=== PATIENT | male | born 1950 | race Caucasian/White ===

== ENCOUNTER 2022-01-09 15:05 | Inpatient (IN) | payer MEDICARE ==
[~2022-01-09] VITALS: Ht 193 cm; Wt 116.1 kg
[~2022-01-09 15:05] MED LIST: ALPRAZolam 0.25 MG (XANAX) TAB PO PRN; AMIO100T4 PO; APIX5TAB PO; ASPI-1238 PO; BISACODYL 10 MG SUPP (DULCOLAX) PR PRN; CALCIUM CARBONATE 500 MG (TUMS) TAB.CHEW PO PRN; CYCL10TA25 PO; DOCUSATE SODIUM 100 MG (COLACE) CAP PO PRN; EMPA10TA PO; EPLE25TA4 PO; FLEET ENEMA ADULT 1 EA BTL PR PRN; FLUT15.845 NSEACH; FURO40TA4 PO; LACTULOSE SYRUP 10GM/15ML (ENULOSE) 30ML UDC PO PRN; LEVO25CA4 PO; LOPERAMIDE 2 MG (IMODIUM) TABLET PO PRN; MELATONIN 3 MG TABLET PO PRN; MTP25TSR PO; SACU1TAB7 PO; SIMV10TA26 PO; TMSL.4C PO; TRM50T PO; ZOLP10TA PO; diphenhydrAMINE 25 MG TAB (BENADRYL) PO PRN; guaiFENesin/CODEINE (ROBITUSSIN AC) 10ML UDC PO PRN
--- NOTE | 2022-01-09 15:09 | PM&R Post Admission Assessment ---
PM&R HP Date of Visit: January 09, 2022 Time of Visit: 17:30 History of Present Illness CC: CHF induced myopathy HPI: This is a 71 yr old male with a history of hypertension, hyperlipidemia, diabetes,and Covid-19 infection in September of 2021. Pt had prostate cancer status post prostatectomy. He presented to [facility] from [facility] in [place] for advanced heart failure therapy and management. He has a history of a total knee replacement in October of this year. He had worsening SOB and lower extremity edema. Lives in [place] and was visiting a son in [place] when he was admitted in [facility] on 12/03/21 with ejection fraction 10% and pleural effusion. He was diuresed and placed on Dobutamine infusion. Which improved, resulted in 10 lb weight loss. He then developed atrial fibrillation. Started anticoagulation and due to the poor cardiac function was transferred to [facility] for ischemic workup. He had V tach sustained type status post cardioversion and initiation of Amiodarone. Pt remains on Amiodarone. He is on Lisinopril and Spironolactone, but those gave acute kidney injury. He will be monitored closely and will have aggressive therapy in order to return home. Past Cosbbcg-Oisbut-Tefwra Hx Past Med/Social Hx: Reviewed Nursing Past Med/Soc Hx, Reviewed and Corrections made Patient Social History Marrital Status: Employed/Student: retired ([employer] 50 years) Alcohol Use: Occasionally Uses Smoking Status: Former Smoker Past Medical History Surgeries: Orthopedic, Prostatectomy Cardiac: Atrial Fibrillation, High Cholesterol, Hypertension Genitourinary: Benign Prostatic Hyperpl Musculoskeletal: Arthritis, Chronic Back Pain Endocrine: Hypothyroidsim, Diabetes, Non-Insulin dep PM&R Allergy/Meds/Data Review Allergies Coded Allergies: No Allergy Information Available (Unverified , 01/09/22) Home Medications Scheduled Amiodarone HCl (Amiodarone HCl), 100 MG PO DAILY, (Reported) Apixaban (Eliquis), 5 MG PO BID, (Reported) Aspirin (Aspirin EC), 81 MG PO DAILY, (Reported) Empagliflozin (Jardiance), 10 MG PO DAILY, (Reported) Eplerenone (Eplerenone), 25 MG PO DAILY, (Reported) Fluticasone Propionate (Fluticasone Propionate), 1 SPRAY NSEACH DAILY, (Reported) Furosemide (Furosemide), 40 MG PO DAILY, (Reported) Levothyroxine Sodium (Levothyroxine), 25 MCG PO DAILY, (Reported) Metoprolol Succinate (Metoprolol Succinate), 12.5 MG PO DAILY, (Reported) Sacubitril/Valsartan (Entresto 49 mg-51 mg Tablet), 1 TAB PO BID, (Reported) Simvastatin (Simvastatin), 10 MG PO DAILY, (Reported) Tamsulosin HCl (Flomax), 0.4 MG PO DAILY, (Reported) Scheduled PRN Cyclobenzaprine HCl (Cyclobenzaprine HCl), 10 MG PO TID PRN for MUSCLE SPASMS, (Reported) Tramadol HCl (Tramadol HCl), 100 MG PO Q6H PRN for PAIN-MODERATE (5-7), (Reported) Zolpidem Tartrate (Ambien), 5 MG PO HS PRN for SLEEP, (Reported) Current Medications Current Medications Reviewed Review of Systems Constitutional: see HPI, dizziness, malaise, weakness EENTM: no symptoms reported Respiratory: dyspnea on exertion Cardiovascular: no symptoms reported Gastrointestinal: no symptoms reported Genitourinary: decreased output Musculoskeletal: back pain, joint pain Skin: no symptoms reported Psychiatric/Neurological: No Symptoms Reported All Other Systems Reviewed Negative Unless Noted: Yes Physical Exam Physical Exam Vital Signs Capillary Refill : Height, Weight, BMI Height: '" Weight: lbs. oz. kg; BMI Method: General Appearance: No Apparent Distress, WD/WN, Chronically ill, Obese Eyes: Bilateral Eye Normal Inspection, Bilateral Eye PERRL HEENT: PERRL/EOMI, Normal ENT Inspection, Pharynx Normal Neck: Full Range of Motion, Normal Inspection, Non Tender, Supple, Carotid Bruit Respiratory: Chest Non Tender, Lungs Clear, No Accessory Muscle Use, No Respiratory Distress, Decreased Breath Sounds Cardiovascular: No Edema, No Gallop, No JVD, No Murmur, Normal Peripheral Pulses, Irregularly Irregular Gastrointestinal: Normal Bowel Sounds, No Organomegaly, No Pulsatile Mass, Non Tender, Soft Back: Normal Inspection, No CVA Tenderness, No Vertebral Tenderness Extremity: Normal Capillary Refill, Normal Inspection, Normal Range of Motion, Non Tender, No Calf Tenderness, No Pedal Edema Neurologic/Psychiatric: Alert, Oriented x3, No Motor/Sensory Deficits, Normal Mood/Affect Skin: Normal Color, Warm/Dry Lymphatic: No Adenopathy PM&R Medical Assessment & Plan REHAB/MEDICAL ASSESSMENT AND PLAN: REHAB IMPAIRMENT GROUP: CHF ETIOLOGIC DIAGNOSIS: CHF The comorbidities that impact the patients function and/or functional outcome by: Shortness of breath, CHF, stamina REHAB PLAN: The patient is being admitted to our comprehensive inpatient rehabilitation facility and can tolerate the intensity of service consisting of at least: 180 minutes of therapy a day, 5 out of 7 days a week Rehab treatment will consist of: PT and OT will focus on regaining function with use of assistive devices in order to return back to independent living with spouse The patient/family has a good understanding of our discharge process and will benefit from an interdisciplinary inpatient rehabilitation program. The patient has potential to make improvement and is in need of at least two of the following multidisciplinary therapies including but not limited to physical, occupational, speech, and prosthetics and orthotics. Additionally the patient will need services from respiratory, nutritional services, wound care, psychology, etc. (Customize this to each patient). Given the patients complex condition and risk of further medical complications, rehabilitation services cannot be safely or effectively provided at a lower level of care such as a retirement facility. BARRIERS TO DISCHARGE: Debility ESTIMATED LOS: 7 days DISPOSITION: Home with spouse RELEVANT CHANGES SINCE PREADMISSION SCREENING: I have compared the patients medical and functional status at the time of the preadmission screening and there are: No changes PROGNOSIS: Fair REHABILITATION GOALS: 1. PT and OT will focus on regaining function with use of assistive devices in order to return back to independent living with spouse All the above goals were reviewed with the patient and he/she is in agreement. By signing this document, I acknowledge that I have personally performed a full physical examination on this patient within 24 hours of admission to this inpatient rehabilitation facility and have determined the patient to be able to tolerate the above course of treatment at an intensive level for a reasonable period of time. I will be completing a detailed individualized Plan of Care for this patient by day #4 of the patients stay based upon the Preadmission Screen, the Post-Admission Evaluation, and the therapy evaluations. Admission Dx/Comorbidities: (1) Chronic HFrEF (heart failure with reduced ejection fraction) ICD Codes: I50.22 - Chronic systolic (congestive) heart failure (2) Nonischemic cardiomyopathy ICD Codes: I42.8 - Other cardiomyopathies (3) Persistent atrial fibrillation ICD Codes: I48.19 - Other persistent atrial fibrillation (4) Primary hypertension ICD Codes: I10 - Essential (primary) hypertension (5) Mixed hyperlipidemia ICD Codes: E78.2 - Mixed hyperlipidemia (6) Pulmonary hypertension ICD Codes: I27.20 - Pulmonary hypertension, unspecified (7) Type 2 diabetes mellitus with complication ICD Codes: E11.8 - Type 2 diabetes mellitus with unspecified complications Assessment/Plan Assessment and Plan Assess & Plan/Chief Complaint Assessment: Cardiac debility Nonischemic cardiomyopathy Persistent atrial fibrillation Previous COVID infection Hypoxia BPH Hypothyroidism Diabetes Prostate cancer history Elevated liver enzymes Insomnia Obesity History of acute kidney injury Hyponatremia Plan: Rehab protocol Dr. Kramer consult Supportive care GUERRERO COLE DO January 09, 2022 15:09
[2022-01-09] MEDS ORDERED: RX-CYCLOBENZAPRINE 10 MG (FLEXERIL) TAB PPK#3 PO PRN (15:15)
[2022-01-09] MEDS ORDERED: NON-FORMULARY MEDICATION 1 EA EA (Zolpidem Tartrate (Ambien) 5 MG) PO PRN (15:15)
[2022-01-09 15:25] VITALS: BP 98/63
--- NOTE | 2022-01-09 15:28 | Physical Therapy Evaluation ---
PT Evaluation-General Medical Diagnosis Admission Date Medical Diagnosis: acute decompensated heart failure Onset Date: January 08, 2022 Therapy Diagnosis Therapy Diagnosis: impaired mobility, strength, endurance Precautions Pace maker precautions Referral Physician: Samanta Blank DO Reason for Referral: Evaluation/Treatment Medical History Pertinent Medical History: Atrial Fib, HTN Current History Pt. is not allowed to lift more than 10lb. or raise left shoulder past 90* for 6 weeks Reviewed History: Yes Social History Home: Single Level Current Living Status: Spouse Entry Into Home: Stairs With Railing PT Steps Into Home: 2 Prior Prior Level of Function SCALE: Activities may be completed with or without assistive devices. 9-Rdwidluabu-zptqmza completes the activity by him/herself with no assistance from a helper. 5-Set-up or Clean-up Assistance-helper sets up or cleans up; patient completes activity. [place] assists only prior to or following the activity. 4-Supervision or Touching Assistance-helper provides verbal cues and/or touching/steadying and/or contact guard assistance as patient completes activity. Assistance may be provided throughout the activity or intermittently. 3-Partial/Moderate Assistance-helper does LESS THAN HALF the effort. [place] lifts, holds or supports trunk or limbs, but provides less than half the effort. 2-Substantial/Maximal Assistance-helper does MORE THAN HALF the effort. [place] lifts or holds trunk or limbs and provides more than half the effort. 8-Ljqhotzhd-ovgsze does ALL the effort. Patient does none of the effort to complete the activity. Or, the assistance of 2 or more helpers is required for the patient to complete the activity. If activity was not attempted, code reason: 7-Patient Refused. 9-Not Applicable-not attempted and the patient did not perform the activity before the current illness, exacerbation or injury. 10-Not Attempted due to Environmental Limitations-(lack of equipment, weather restraints, etc.). 88-Not Attempted due to Medical Conditions or Safety Concerns. Bed Mobility: 6 Transfers (B,C,W/C): 6 Gait: 6 Stairs: 6 Indoor Mobility (Ambulation): Independent Stairs: Independent Prior Devices Use: None PT Evaluation-Current Subjective Patient was brought into rehab today by family. Patient was wheeled up to the floor in . Patient did not report pain at this time and was agreeable to PT. Pain Numeric Pain Scale: 0-No Pain Pt/Family Goals To be independent at home Objective Patient Orientation: Person, Place, Time, Situation ROM/Strength ROM Lower Extremities Grossly WFL Strength Lower Extremities R LE: (hip flexion4-/5, knee extension 4/5, knee flexion 4-/5, DF 4/5); L LE (hip flexion4-/5, knee extension 4/5, knee flexion 4-/5, DF 4/5) Integumentary/Posture Bowel Incontinence: No Bladder Incontinence: [place] Cath Sensory Vision: Functional Hearing: Functional Sensation Right Lower Extremit: Intact Sensation Left Lower Extremity: Intact Transfers Roll Left & Right (QC): 3 Sit to Lying (QC): 4 Lying to Sitting/Side of Bed(Q: 3 Sit to Stand (QC): 2 Chair/Uas-ww-Atfek Xfer(QC): 2 Toilet Transfer (QC): 2 Car Transfer (QC): 2 Gait Does the Patient Walk?: Yes Mode of Locomotion: Walk Anticipated Mode of Locomotion: Walk Walk 10 feet (QC): 3 Walk 50 ft with 2 Turns(QC): 88 Walk 150 ft (QC): 88 Walking 10ft/uneven surface-QC: 88 Distance: 15' Gait Assistive Device: Cane Large Base Quad Comments/Gait Description Arm sling on L. Cane on R. small very unsteady steps. needs rest after a few feet of walking. Wheelchair Training Does the Pt Use a Wheelchair?: Yes Wheel 50 ft with 2 turns (QC): 1 Wheel 150 ft (QC): 1 Stairs 1 Step (curb) (QC): 88 4 Steps (QC): 88 12 Steps (QC): 88 Balance Sitting Static: Good Sitting Dynamic: Fair Standing Static: Poor Standing Dynamic: Poor Picking up an Object (QC): 88 Assessment/Needs Patient was very weak with transfers needing max assist for sit-stand, and min assist for walking short distances. Patient was min assist for bed mobility. Patients was ambulated with large base quad cane due to arm sling which makes ambulating more difficult and unsteady. Pt was left in recliner in chair with call light, tray, and all needs met. Rehab Potential: Poor PT Short Term Goals Short Term Goals Time Frame: January 16, 2022 Roll Left & Right: 4 Sit to lyin (CGA) Lying to sitting on side of be: 4 (CGA) Sit to stand: 3 Chair/ntk-fp-jsioj transfer: 3 Toilet transfer: 3 Car transfer: 3 Walk 10 feet: 4 (CGA) Walk 50 feet with two turns: 3 Walk 150 feet: 3 Walking 10ft on uneven surface: 3 1 step (curb): 4 PT Nickel Operator Goals Nickel Operator Goals PT Assisted Goals Time Frame: January 30, 2022 Roll Left & Right (QC): 6 Sit to Lying (QC): 4 (SBA) Lying-Sitting on Side/Bed(QC): 4 (SBA) Sit to Stand (QC): 4 (CGA) Chair/Rrg-ue-Coyya Xfer(QC): 4 (CGA) Toilet Transfer (QC): 4 (CGA) Car Transfer (QC): 4 (CGA) Does the Patient Walk: Yes Walk 10 feet (QC): 4 (SBA) Walk 50ft with 2 Turns (QC): 4 (CGA) Walk 150 ft (QC): 4 (CGA) Walking 10ft on Uneven Surface: 4 (CGA) 1 Step (curb) (QC): 4 (CGA) 4 Steps (QC): 88 12 Steps (QC): 88 Picking up an Object (QC): 4 (CGA with sewer builder) Does the Pt use WC or Scooter?: No Wheel 50 feet with 2 turns (QC: 9 Type: N/A Wheel 150 feet: 9 Type: N/A PT Plan Problem List Problem List: Activity Tolerance, Functional Strength, Safety, Balance, Gait, Transfer, Bed Mobility, ROM Treatment/Plan Treatment Plan: Continue Plan of Care Treatment Plan: Bed Mobility, Education, Functional Activity Saul, Functional Strength, Group Therapy, Gait, Safety, Therapeutic Exercise, Transfers Treatment Duration: January 30, 2022 Frequency: At least 5 of 7 days/Wk (IRF) Estimated Hrs Per Day: 1.5 hours per day Patient and/or Family Agrees t: Yes Safety Risks/Education Patient Education: Gait Training, Transfer Techniques, Reviewed Precautions, Correct Positioning, Safety Issues Teaching Recipient: Patient Teaching Methods: Demonstration, Discussion Response to Teaching: Verbalize Understanding, Reinforcement Needed Discharge Recommendations Plan Patient will perform bed mobility and transfer training, balance and endurance training, functional strengthening, stair training, gait training, and education, to improve functional mobility and independence at home. Therapy Discharge Recommendati: Scheduled Assistance, Home & Family, Post Acute PT Time/GCodes Time In: 1500 Time Out: 1520 Total Billed Treatment Time: 20 Total Billed Treatment 1 visit EVM 20min SOLO MULLER PT January 09, 2022 15:28
--- OUTSIDE RECORDS SUMMARY | 2022-01-09 16:29 | XMS REPORT | Clinical Summary ---
Author Author [facility] Organization [facility] Address Unknown Phone Unavailable Care Team Providers Care Fitness [employer] Manager Name Role Phone PCP Unavailable Allergies No known active allergies Medications End Date Status Medication Sig Dispensed Refills Start Date Active simvastatin (ZOCOR) 10 MG Take 10 mg by 0 tabletIndications: mouth. hyperlipidemia Active tramadoL (ULTRAM) 50 mg Take 100 mg 0 tabletIndications: pain by mouth every 6 (six) hours as needed. Active cyclobenzaprine Take 1 tablet 0 (FLEXERIL) 10 MG (10 mg total) 2 tabletIndications: muscle by mouth 3 spasm (three) times a day as needed for muscle spasms. Active furosemide (LASIX) 40 MG Take 1 tablet 0 01/08 tabletIndications: edema (40 mg total) 2 by mouth daily. Active zolpidem (AMBIEN) 10 mg Take 0.5 0 tablet tablets (5 mg 2 total) by mouth nightly as needed for sleep. Active amiodarone (PACERONE) 100 Take 1 tablet 0 05/0 MG tabletIndications: (100 mg 2 prevention of recurrent total) by atrial fibrillation mouth daily. Active aspirin 81 MG EC Take 1 tablet 0 tabletIndications: (81 mg total) 2 myocardial infarction by mouth prevention daily. Active eplerenone (INSPRA) 25 MG Take 1 tablet 0 05/0 tabletIndications: (25 mg total) 2 chronic heart failure by mouth following myocardial daily. infarction Active empagliflozin (JARDIANCE) Take 1 tablet 30 tablet 11 10 mg tabletIndications: (10 mg total) 2 heart failure with by mouth reduced ejection fraction daily. Active fluticasone propionate Use 1 spray 0 02 (FLONASE) 50 in each 2 mcg/actuation nasal nostril sprayIndications: daily. allergic rhinitis Active levothyroxine (SYNTHROID, Take 1 tablet 0 LEVOTHROID) 25 MCG (25 mcg 2 tabletIndications: total) by hypothyroidism mouth daily. Active metoprolol succinate Take 0.5 0 (TOPROL-XL) 25 MG 24 hr tablets (12.5 2 tabletIndications: mg total) by chronic heart failure mouth daily. Active sacubitriL-valsartan Take 1 tablet 0 (ENTRESTO) 49-51 mg per by mouth 2 2 tabletIndications: (two) times a chronic heart failure day. Active tamsulosin (FLOMAX) 0.4 Take 1 0 mg capIndications: benign capsule (0.4 2 prostatic hyperplasia mg total) by with lower urinary tract mouth daily. sx Active apixaban (ELIQUIS) 5 mg Take 1 tablet 60 tablet 2 tabletIndications: (5 mg total) 2 prevent thromboembolism by mouth 2 in chronic atrial (two) times a fibrillation day. 01/08/2022 Discontinued (Reorder) cyclobenzaprine Take 1 tablet 0 (FLEXERIL) 10 MG tablet by mouth. 2 01/08/2022 Discontinued (Reorder) furosemide (LASIX) 80 MG Take 1 tablet 0 09/18 tablet by mouth. 2 01/09/2022 Discontinued (Stop Taking at Discharge) hydrocodone-chlorpheniram Take 5 mL by 0 08/06 ine 10-8 mg/5 mL mouth nightly 1 (TUSSIONEX PENNKINETIC) as needed. ER suspension 01/09/2022 Discontinued (Stop Taking at Discharge) lisinopriL Take 10 mg by 0 (PRINIVIL,ZESTRIL) 10 MG mouth daily. tablet 01/09/2022 Discontinued (Stop Taking at Discharge) meloxicam (MOBIC) 15 MG Take 1 tablet 0 tablet by mouth. 1 01/09/2022 Discontinued (Stop Taking at Discharge) methocarbamoL (ROBAXIN) Take 1 tablet 0 500 MG tablet by mouth. 1 01/09/2022 Discontinued (Stop Taking at Discharge) NIFEdipine (PROCARDIA-XL, 1 tablet on 0 01/05 ADALAT CC) 30 MG 24 hr an empty 1 tablet stomach 01/09/2022 Discontinued (Stop Taking at Discharge) losartan-hydrochlorothiaz Take 1 tablet 0 maximilian (HYZAAR) 50-12.5 mg by mouth. 1 per tablet 01/09/2022 Discontinued (Stop Taking at Discharge) predniSONE (DELTASONE) 50 Take 50 mg by 0 08/06 MG tablet mouth. 1 01/09/2022 Discontinued (Stop Taking at Discharge) terazosin (HYTRIN) 2 MG 1 capsule at 0 capsuleIndications: bedtime 1 benign prostatic hyperplasia with lower urinary tract sx 01/08/2022 Discontinued (Reorder) zolpidem (AMBIEN) 10 mg 1 tablet at 0 tablet bedtime as 2 needed 01/09/2022 Discontinued (Stop Taking at Discharge) zolpidem (AMBIEN CR) 12.5 1 tablet at 0 10/07 MG CR tablet bedtime as 2 needed 01/08/2022 Discontinued (Reorder) empagliflozin (JARDIANCE) Take 1 tablet 30 tablet 11 10 mg tablet (10 mg total) 2 by mouth daily. 01/08/2022 Discontinued (Stop Taking at Discharge) sacubitriL-valsartan Take 1 tablet 60 tablet 11 (ENTRESTO) 24-26 mg per by mouth 2 2 tablet (two) times a day. Active Problems Problem Noted Date Hyponatremia 01/01/2022 Cardiogenic shock 12/31/2021 Benign essential hypertension 12/31/2021 Mixed hyperlipidemia 12/31/2021 Primary insomnia 12/31/2021 Prostate cancer 12/31/2021 COVID-19 virus infection 12/31/2021 Obesity 12/31/2021 Type 2 diabetes mellitus 12/31/2021 Acute on chronic systolic heart failure 12/31/2021 Acute kidney injury 12/31/2021 Atrial fibrillation 12/31/2021 Resolved Problems Problem Noted Date Resolved Date Elevated liver enzymes 12/31/2021 01/06/2022 Encounters Care Team Description Date Type Specialty Tanya Giles RN ICD (implantable cardioverter-defibrilla tor), dual, in situ 01/09/2022 Orders Only Cardiology Tanya Giles RN ICD (implantable cardioverter-defibrilla tor), dual, in situ (Primary Dx) 01/09/2022 Orders Only Cardiology Kristel Echeverria MA Cardiac device in situ (Primary Dx) 01/09/2022 Transcribe Cardiology Orders Anali Fleiz MD ICD INSERTION DUAL-MDT 01/08/2022 Surgery Cardiology Ponce Fonseca MD Encounter for consultation 01/05/2022 Imaging Radiology Appointment Ponce Fonseca MD Encounter for consultation 01/05/2022 Imaging Radiology Appointment Edenilson Faith MD Encounter for consultation (Primary Dx) 01/05/2022 Transcribe Transplant Orders Mikel Goff MD RIGHT HEART CATHETERIZATION 01/01/2022 Surgery Cardiology [place] RN 01/01/2022 Documentation Transplant Ponce Fonseca MD Nassif, Michael, MD Chronic systolic heart failure (HCC) (Pr imary Dx); Hypothyroidism (acquired); Heart failure with reduced ejection fraction (HCC); NICM (nonischemic cardiomyopathy) (HCC); COVID-19 virus infection; Persistent atrial fibrillation (HCC); Acute kidney injury (HCC); Benign essential hypertension; Mixed hyperlipidemia 12/31/2021 Hospital Cardiology - Encounter 01/09/2022 from Last 3 Months Social History Date Tobacco Use Types Packs/Day Years Used Never Smoker Smokeless Tobacco: Never Used Comments Alcohol Use Standard Drinks/Week Not Currently 0 (1 standard drink = 0.6 o z pure alcohol) Sex Assigned at Date Recorded Not on file Last Filed Vital Signs Reading Time Taken Comments Vital Sign 106/66 01/09/2022 10:56 AM CDT Blood Pressure 85 01/09/2022 10:56 AM CDT Pulse 36.6 C (97.8 F) 01/09/2022 10:56 AM CDT Temperature 18 01/09/2022 10:56 AM CDT Respiratory Rate 96% 01/09/2022 10:56 AM CDT Oxygen Saturation - - Inhaled Oxygen Concentration 108.7 kg (239 lb 9.6 oz) 01/09/2022 5:36 AM CDT Weight 185.4 cm (6' 1") 12/31/2021 7:35 PM CDT Height 31.61 12/31/2021 7:35 PM CDT Body Mass Index Plan of Treatment Care Team Description Date Type Specialty 01/15/2022 Nurse Only Cardiology Anali Feliz MD [address] [place] [address] 02/09/2022 Telephone Cardiology Vanessa Phillip FNP [address] [place] [address] 04/16/2022 Office Visit Cardiology 04/16/2022 Nurse Only Cardiology Health Maintenance Due Date Last Done Comments Advance Care Plan 1950 Conversation Needed # Advance Care Plan 1950 Document Filed # Advance Care Planning # 1950 Colonoscopy 1950 Colorectal Cancer 1950 Screening Diabetes Mellitus 1950 Ophthalmology Exam Diabetes Mellitus Urine 1950 Microalbumin FIT-DNA 1950 Fecal Occult Blood 1950 Hepatitis C Screen 1950 Sigmoidoscopy 1950 Td/Tdap# 1950 Pneumococcal Vaccine: 65+ 1955 Years (1 - PCV) Diabetes Mellitus Foot 1959 Exam Zoster Vaccine# (1 of 2) 2000 COVID-19 Vaccine (3 - 04/08/2021 11/06/2020, Booster for Moderna 10/09/2020 series) Social Determinants of 09/06/2021 Health# Influenza Vaccine (Season 06/06/2022 Ended) Diabetes Mellitus 07/03/2022 01/01/2022, Hemoglobin A1C 12/31/2021 Lipid Screening 01/01/2023 01/01/2022, 01/01/2022, 12/31/2021 Fall Risk Assessment # 01/09/2023 01/09/2022 Medical Devices Device Identifier Shelf Expiration Date Model / Serial / L ot Implanted Type Area Manufactur er 05/20/2023 [id number] / [id number] / [id number] Implant Defibrillator Evera Mri ICD Left: Chest MEDTRON[employer] Xt [id number] - [id number] CARDIAC Implanted: Qty: 1 on 01/08/2022 by RHYTHM Chuck Kelley MD at [facility] 06/30/2023 4076-52 / [id number] / [id number] Implant Lead Pacemaker Lead Right: Heart MEDTRON IC Atrial/Ventricle 52cm Capsure Fix Atrium CAR DIAC Jasmeet 4076-52 - [id number] RHYTHM Implanted: Qty: 1 on 01/08/2022 by [facility] Chuck Kelley MD at [facility] Procedures Comments Procedure Name Priority Date/Time Associated Diag nosis INPATIENT SINGLE CHAMBER Routine 01/09/2022 ICD ( implantable PACEMAKER CHECK 9:37 AM CDT cardioverter-defibr illato r), dual, in situ XR CHEST 2 VIEWS (PA AND Timed 01/09/2022 LATERAL) 8:58 AM CDT GLUCOSE POC Timed 01/09/2022 8:33 AM CDT COMPLETE BLOOD COUNT Routine 01/09/2022 6:14 AM CDT COMPREHENSIVE METABOLIC Routine 01/09/2022 PANEL 6:14 AM CDT ECG Routine 01/09/2022 5:25 AM CDT GLUCOSE POC Timed 01/08/2022 9:00 PM CDT PLATELET Timed 01/08/2022 4:36 PM CDT GLUCOSE POC Timed 01/08/2022 4:29 PM CDT ELECTROPHYSIOLOGY Routine 01/08/2022 PROCEDURE 3:06 PM CDT ELECTROPHYSIOLOGY Routine 01/08/2022 PROCEDURE 3:06 PM CDT GLUCOSE POC Timed 01/08/2022 11:15 AM CDT COMPLETE BLOOD COUNT Routine 01/08/2022 10:43 AM CDT COMPREHENSIVE METABOLIC Routine 01/08/2022 PANEL 10:43 AM CDT GLUCOSE POC Timed 01/08/2022 7:25 AM CDT ECG Routine 01/08/2022 5:27 AM CDT Procedure Note - 01/08/2022 5:27 AM CDTThis note is in progress. [facility] Test Date: 2022-01-08 Pat Name: AVEL FAYE Department : [facility] Room: 18 Gender: Male Perinatal Coordinator : [id number] : 1950 Requested By: ANALI FELIZ Order Number: [id number] Reading MD: Harvinder ts Intervals Benjamin Rate: 82 P: 215 IA: 72 QRS: -68 QRSD: 148 T: 95 QT: 440 QTc: 514 Interpreti ve Statements Sinus or ectopic atrial rhythm Ventricula r premature complex Short IA interval Nonspecifi c IVCD with LAD Inferior infarct, old Anterior infarct, old GLUCOSE POC Timed 01/07/2022 9:12 PM CDT GLUCOSE POC Timed 01/07/2022 5:45 PM CDT SPIROMETRY ONLY, DLCO Routine 01/07/2022 1:21 PM CDT GLUCOSE POC Timed 01/07/2022 11:43 AM CDT GLUCOSE POC Timed 01/07/2022 7:38 AM CDT COMPLETE BLOOD COUNT Routine 01/07/2022 7:19 AM CDT COMPREHENSIVE METABOLIC Routine 01/07/2022 PANEL 7:19 AM CDT HEPARIN ANTI FACTOR XA, Timed 01/07/2022 UNFRACTIONATED HEPARIN 7:19 AM CDT GLUCOSE POC Timed 01/06/2022 9:08 PM CDT GLUCOSE POC Timed 01/06/2022 5:31 PM CDT HEPARIN ANTI FACTOR XA, Timed 01/06/2022 UNFRACTIONATED HEPARIN 10:20 AM CDT COMPLETE BLOOD COUNT Routine 01/06/2022 10:20 AM CDT COMPREHENSIVE METABOLIC Routine 01/06/2022 PANEL 10:20 AM CDT GLUCOSE POC Timed 01/06/2022 8:03 AM CDT GLUCOSE POC Timed 01/05/2022 9:08 PM CDT GLUCOSE POC Timed 01/05/2022 6:27 PM CDT SARS-COV-2 (COVID-19) Routine 01/05/2022 5:31 PM CDT GLUCOSE POC Timed 01/05/2022 12:07 PM CDT CATH OUTSIDE IMAGES FOR Routine 01/05/[address] for PACS 10:38 AM CDT consultation ECHO OUTSIDE IMAGES FOR Routine 01/05/[address] for PACS 10:38 AM CDT consultation GLUCOSE POC Timed 01/05/2022 7:44 AM CDT HEPARIN ANTI FACTOR XA, STAT 01/05/2022 UNFRACTIONATED HEPARIN 2:01 AM CDT COMPLETE BLOOD COUNT Routine 01/05/2022 2:01 AM CDT COMPREHENSIVE METABOLIC Routine 01/05/2022 PANEL 2:01 AM CDT GLUCOSE POC Timed 01/04/2022 9:02 PM CDT HEPARIN ANTI FACTOR XA, Timed 01/04/2022 UNFRACTIONATED HEPARIN 7:14 PM CDT GLUCOSE POC Timed 01/04/2022 4:47 PM CDT GLUCOSE POC Timed 01/04/2022 12:10 PM CDT PLATELET Timed 01/04/2022 11:41 AM CDT HEPARIN ANTI FACTOR XA, Timed 01/04/2022 UNFRACTIONATED HEPARIN 11:41 AM CDT GLUCOSE POC Timed 01/04/2022 7:52 AM CDT HEPARIN ANTI FACTOR XA, Timed 01/04/2022 UNFRACTIONATED HEPARIN 6:00 AM CDT COMPLETE BLOOD COUNT Routine 01/04/2022 6:00 AM CDT COMPREHENSIVE METABOLIC Routine 01/04/2022 PANEL 6:00 AM CDT GLUCOSE POC Timed 01/03/2022 9:16 PM CDT HEPARIN ANTI FACTOR XA, Timed 01/03/2022 UNFRACTIONATED HEPARIN 8:22 PM CDT GLUCOSE POC Timed 01/03/2022 7:33 PM CDT GLUCOSE POC Timed 01/03/2022 12:04 PM CDT HEPARIN ANTI FACTOR XA, Timed 01/03/2022 UNFRACTIONATED HEPARIN 12:01 PM CDT US CAROTID DUPLEX BILAT Routine 01/03/2022 8:53 AM CDT CV MRI CARDIAC W WO Routine 01/03/2022 CONTRAST 8:19 AM CDT COMPLETE BLOOD COUNT Routine 01/03/2022 3:22 AM CDT COMPREHENSIVE METABOLIC Routine 01/03/2022 PANEL 3:22 AM CDT HEPARIN ANTI FACTOR XA, Timed 01/03/2022 UNFRACTIONATED HEPARIN 3:22 AM CDT PROTEIN URINE QUANT 24HR Routine 01/02/2022 11:58 PM CDT CREATININE CLEARANCE Routine 01/02/2022 GROUP 11:58 PM CDT GLUCOSE POC Timed 01/02/2022 8:21 PM CDT PLATELET Timed 01/02/2022 5:34 PM CDT GLUCOSE POC Timed 01/02/2022 5:[address] ABDOMEN WO CONTRAST Routine 01/02/2022 3:[address] CHEST WO CONTRAST Routine 01/02/2022 3:22 PM CDT GLUCOSE POC Timed 01/02/2022 1:00 PM CDT GLUCOSE POC Timed 01/02/2022 7:40 AM CDT HEPARIN ANTI FACTOR XA, Timed 01/02/2022 UNFRACTIONATED HEPARIN 6:27 AM CDT COMPLETE BLOOD COUNT Routine 01/02/2022 6:27 AM CDT COMPREHENSIVE METABOLIC Routine 01/02/2022 PANEL 6:27 AM CDT OXYHEMOGLOBIN VENOUS Timed 01/02/2022 4:03 AM CDT HEPARIN ANTI FACTOR XA, Timed 01/01/2022 UNFRACTIONATED HEPARIN 11:42 PM CDT PLATELET Timed 01/01/2022 11:42 PM CDT EXTRA URINE SPECIMEN IN Routine 01/01/2022 YELLOW W/OUT PRESERVATIVE 10:57 PM CDT URINALYSIS (INCLUDES Routine 01/01/2022 MICROSCOPIC REVIEW, IF 10:57 PM CDT INDICATED) EXTRA URINE SPECIMEN IN Routine 01/01/2022 MCKAY TUBE 10:57 PM CDT OXYHEMOGLOBIN VENOUS Routine 01/01/2022 10:16 PM CDT GLUCOSE POC Timed 01/01/2022 8:44 PM CDT FECAL OCCULT BLOOD Routine 01/01/2022 INPATIENT 7:24 PM CDT GLUCOSE POC Timed 01/01/2022 5:01 PM CDT OXYHEMOGLOBIN VENOUS Timed 01/01/2022 4:16 PM CDT US ABDOMEN COMPLETE Routine 01/01/2022 3:01 PM CDT HEPARIN ANTI FACTOR XA, Timed 01/01/2022 UNFRACTIONATED HEPARIN 2:53 PM CDT APTT Timed 01/01/2022 2:53 PM CDT ANTIBODY SCREEN Timed 01/01/2022 2:50 PM CDT ABORH TYPE Timed 01/01/2022 2:50 PM CDT TYPE AND SCREEN Routine 01/01/2022 2:50 PM CDT CLOTTING SCREEN Routine 01/01/2022 2:50 PM CDT HAPTOGLOBIN Routine 01/01/2022 2:50 PM CDT OXYHEMOGLOBIN VENOUS STAT 01/01/2022 12:39 PM CDT XR CHEST POST LINE DRAIN Routine 01/01/2022 OR AIRWAY PLACEMENT 12:26 PM CDT GLUCOSE POC Timed 01/01/2022 12:11 PM CDT CARDIAC CATHETERIZATION Routine 01/01/2022 12:04 PM CDT GLUCOSE POC Timed 01/01/2022 10:33 AM CDT ECG STAT 01/01/2022 10:08 AM CDT ECHO COMPLETE W DOPPLER Routine 01/01/2022 AND COLOR FLOW W CONTRAST 10:05 AM CDT GLUCOSE POC Timed 01/01/2022 7:27 AM CDT FIBRINOGEN ASSAY Add-On 01/01/2022 2:51 AM CDT HEPARIN ANTI FACTOR XA, Timed 01/01/2022 UNFRACTIONATED HEPARIN 2:51 AM CDT RETYPE PATIENT ABORH Routine 01/01/2022 12:25 AM CDT HEMOGLOBIN A1C Add-On 01/01/2022 12:25 AM CDT IRON/TRANSFERRIN Routine 01/01/2022 12:25 AM CDT FERRITIN Routine 01/01/2022 12:25 AM CDT COMPLETE BLOOD COUNT Routine 01/01/2022 12:25 AM CDT COMPREHENSIVE METABOLIC Routine 01/01/2022 PANEL 12:25 AM CDT HEPARIN ANTI FACTOR XA, Timed 01/01/2022 UNFRACTIONATED HEPARIN 12:25 AM CDT DIGOXIN Routine 01/01/2022 12:25 AM CDT LIPID PANEL Routine 01/01/2022 12:25 AM CDT BENZODIAZEPINES After 12/31/2021 CONFIRMATION, U office 11:30 PM CDT visit TOXICOLOGY SCREENING Add-On 12/31/2021 PANEL 11:30 PM CDT COVID PCR - RAPID STAT 12/31/2021 11:30 PM CDT EXTRA URINE SPECIMEN IN Routine 12/31/2021 YELLOW W/OUT PRESERVATIVE 11:30 PM CDT URINALYSIS (INCLUDES Routine 12/31/2021 MICROSCOPIC REVIEW, IF 11:30 PM CDT INDICATED) EXTRA URINE SPECIMEN IN Routine 12/31/2021 CMKAY TUBE 11:30 PM CDT GLUCOSE POC Timed 12/31/2021 9:33 PM CDT LIPID PANEL Add-On 12/31/2021 8:44 PM CDT URIC ACID Add-On 12/31/2021 8:44 PM CDT IRON/TRANSFERRIN Add-On 12/31/2021 8:44 PM CDT PREALBUMIN Add-On 12/31/2021 8:44 PM CDT T4 FREE Add-On 12/31/2021 8:44 PM CDT MAGNESIUM Add-On 12/31/2021 8:44 PM CDT RAPID PLASMA REAGIN Add-On 12/31/2021 8:44 PM CDT PSA SCREEN Add-On 12/31/2021 8:44 PM CDT CREATININE Add-On 12/31/2021 8:44 PM CDT ACUTE HEPATITIS PANEL Add-On 12/31/2021 8:44 PM CDT HIV AG/JOEY Add-On 12/31/2021 8:44 PM CDT LACTATE DEHYDROGENASE Add-On 12/31/2021 8:44 PM CDT HEPARIN ANTI FACTOR XA, STAT 12/31/2021 UNFRACTIONATED HEPARIN 8:44 PM CDT LACTATE VENOUS WB STAT 12/31/2021 8:44 PM CDT PROTHROMBIN TIME/INR Routine 12/31/2021 8:44 PM CDT T4 FREE Routine 12/31/2021 8:44 PM CDT THYROID STIMULATING Routine 12/31/2021 HORMONE 8:44 PM CDT COMPLETE BLOOD COUNT Routine 12/31/2021 8:44 PM CDT HEMOGLOBIN A1C Routine 12/31/2021 8:44 PM CDT COMPREHENSIVE METABOLIC Routine 12/31/2021 PANEL 8:44 PM CDT B TYPE NATRIURETIC Routine 12/31/2021 PEPTIDE (BNP) 8:44 PM CDT MAGNESIUM Routine 12/31/2021 8:44 PM CDT XR CHEST SINGLE VIEW DEEPIKA 12/31/2021 FRONTAL 7:39 PM CDT from Last 3 Months Results * INPATIENT DUAL CHAMBER ICD CHECK (01/09/2022 9:37 AM CDT) Modality Anatomical Region Laterality Other Impressions 01/09/2022 9:37 AM CDT Device Interrogation Report DATE/TIME: 01/09/22 0900 Indication for interrogation: Next Day Check Post ICD Implant Device Brace Maker/Model: Medtronic Evera ICD Battery Voltage: 3.08V Atrial Pacing <0.1% Ventricular Pacing 0.2% RA 456ohms, 2.0mV, 1.5V/0.4ms RV 608ohms, 6.5mV, 0.75V/0.4ms Underlying Rhythm: SR, rate 80's, frequent PVC's Episodes: No episodes recorded. Based upon this interrogation, the device appears to be functioning normally and the leads appear stable. Noted elevated RA threshold that is similar compared to threshold recorded in procedure post-op note and RA lead sensing is stable. Also reviewed RA lead measurement with Medtronic rep. Results communicated to Je Calabrese NP. Patient instructed regarding incision care, arm restrictions, and device follow up. Patient given, and encouraged to read the "Understanding Implantable Devices" instruction folder. The EP Nurses' phone number was marked for patient to contact if further concerns or questions. Tanya Giles, 01/09/2022 9:41 AM Electrophysiology Nurse Anali Feliz MD [facility] CARDIAC SERVICES ORDERAB LES * XR Chest 2 views (PA and lateral) (01/09/2022 8:58 AM CDT) Modality Anatomical Region Laterality Computed Radiography Chest Anatomical Location / Laterality Collection Method / Volume Smitha ection Time Received Time Specimen (Source) 01/09/2022 8:50 AM CDT Impressions 01/09/2022 10:05 AM CDT Slightly improved right worse than left bibasilar subsegmental atelectases. Stable bilateral pleural effusions. No pneumothorax. Support apparatus as described. READING SITE: Home, due to Covid 19 Narrative 01/09/2022 10:05 AM CDT Patient: AVEL FAYE Sex#: M #: [id number] Sera#: [id number] Location: [address] H618-01 Ordering Provider: CHUCK KELLEY Procedure Requested: [id number] XR CHEST 2 VIEWS (PA AND LATERAL) Reason for Exam: Lead placement Exam Ordered: 01/09/2022 0700 Begin exam date/time: 01/09/2022 0850 Exam Date/Time: 01/09/2022 0858 COMPARISON STUDY: 01/01/2022. FINDINGS: Life Support Devices: Interval placement of left pectoral transvenous dual-chamber AICD with leads terminating in the right atrium and right ventricle. Interval removal of PA catheter. Lungs: Slightly improved right worse than left bibasilar subsegmental atelectases. Pleura: Stable small bilateral pleural effusions. Heart and Mediastinum: Stable heart and mediastinum. Bones and soft tissues: Stable regional skeleton. Procedure Note Ghassan Burkett MD - 01/09/2022 Patient: AVEL FAYE Sex#: M #: [id number] Sera#: [id number] Location: [address] H618-01 Ordering Provider: CHUCK KELLEY Procedure Requested: [id number] XR CHEST 2 VIEWS (PA AND LATERAL) Reason for Exam: Lead placement Exam Ordered: 01/09/2022 0700 Begin exam date/time: 01/09/2022 0850 Exam Date/Time: 01/09/2022 0858 COMPARISON STUDY: 01/01/2022. FINDINGS: Life Support Devices: Interval placement of left pectoral transvenous dual-chamber AICD with leads terminating in the right atrium and right ventricle. Interval removal of PA catheter. Lungs: Slightly improved right worse than left bibasilar subsegmental atelectases. Pleura: Stable small bilateral pleural effusions. Heart and Mediastinum: Stable heart and mediastinum. Bones and soft tissues: Stable regional skeleton. IMPRESSION Slightly improved right worse than left bibasilar subsegmental atelectases. Stable bilateral pleural effusions. No pneumothorax. Support apparatus as described. READING SITE: Home, due to Covid 19 Chuck Kelley MD [facility]ONG * (ABNORMAL) GLUCOSE POC (01/09/2022 8:33 AM CDT) Only the most recent of 33 results within the time period is included. Pathologist Signature Component Value Ref Test Method Analysis Performed A t Range Time Glucose POC 151 (H) 70 - 100 01/09/2022 [facility] mg/dL 8:33 AM CDT Anatomical Location / Laterality Collection Method / Volume Smitha ection Time Received Time Specimen (Source) 01/09/2022 8:33 AM CDT 01/10/20 8:35 AM CDT Blood (Venous) Ponce Fonseca MD LAB BLOOD ORDERABLES City/State/ZIP Code Phone Number Performing [place] [address] [place] [address] * (ABNORMAL) Comprehensive Metabolic Panel (01/09/2022 6:14 AM CDT) Only the most recent of 10 results within the time period is included. Pathologist Signature Component Value Ref Test Method Analysis Performed A t Range Time Sodium 133 (L) 136 - 01/09/2022 [facility] 145 7:36 AM mEq/L CDT Potassium 3.5 3.4 - 01/09/2022 [facility] 5.1 7:36 AM mEq/L CDT Chloride 99 98 - 109 01/09/2022 [facility] mEq/L 7:36 AM CDT Comment: Reference interval updated 11/06/2021. Carbon Dioxide 24 20 - 31 01/09/2022 [facility] mEq/L 7:36 AM CDT Anion Gap 10 5 - 17 01/09/2022 [facility] mmol/L 7:36 AM CDT Calcium 9.0 8.3 - 01/09/2022 [facility] 10.6 7:36 AM mg/dL CDT Glucose 125 (H) 70 - 100 01/09/2022 [facility] mg/dL 7:36 AM CDT Protein Total Serum 5.9 5.7 - 01/09/2022 [facility] 8.2 g/dL 7:36 AM CDT Albumin 3.5 3.5 - 01/09/2022 [facility] 5.0 g/dL 7:36 AM CDT Alkaline Phosphatase 120 44 - 150 01/09/2022 [facility] U/L 7:36 AM CDT Comment: Reference interval updated 11/21/2021. Alanine 21 0 - 49 01/09/2022 [facility] Aminotransferase U/L 7:36 AM CDT Aspartate 16 0 - 34 01/09/2022 [facility] Aminotransferase U/L 7:36 AM CDT Comment: Reference range updated 06/29/21 with [facility] conversion to [employer] instrumentation. Bilirubin Total 1.00 0.20 - 01/09/2022 [facility] 1.10 7:36 AM mg/dL CDT Blood Urea Nitrogen 11 9 - 23 01/09/2022 [facility] mg/dL 7:36 AM CDT Creatinine 1.10 0.70 - 01/09/2022 [facility] 1.30 7:36 AM mg/dL CDT eGFR 71.3 60.0 - 01/09/2022 [facility] 200.0 7:36 AM mL/min/1 CDT .73m*2 Comment: The National Kidney Foundation and the [place] [employer] of Neph[employer] (NKF-ASN) recommends using the 2020 CKD Epidemiology Collaboration (CKD-EPI) equation to calculate estimated glomerular filtration rate (eGFR). This equation is only applicable to adult patients and removes race as a variable. Estimated GFR calculated with 2020 CKD-EPI equation. Vegetarian diet, extremely high or low muscle mass, and may affect results. Anatomical Location / Laterality Collection Method / Volume Smitha ection Time Received Time Specimen (Source) Venipuncture / Unknown 01/09/2022 6:14 AM CDT 0 01/09/2022 6:58 AM CDT Blood (Venous) Chuck Kelley MD LAB BLOOD ORDERABLES City/State/ZIP Code Phone Number Performing Address [place] [address] * (ABNORMAL) Complete Blood Count (01/09/2022 6:14 AM CDT) Only the most recent of 10 results within the time period is included. Pathologist Signature Component Value Ref Test Method Analysis Performed A t Range Time WBC 7.93 4.00 - 01/09/2022 [facility] 11.00 7:30 AM TH/uL CDT RBC 4.13 (L) 4.31 - 01/09/2022 [facility] 5.84 7:30 AM mil/uL CDT Hemoglobin 11.5 (L) 13.0 - 01/09/2022 [facility] 17.0 7:30 AM g/dL CDT Hematocrit 36 (L) 40 - 50 01/09/2022 [facility] % 7:30 AM CDT MCV 87 80 - 99 01/09/2022 [facility] fL 7:30 AM CDT MCH 28 27 - 34 01/09/2022 [facility] pg 7:30 AM CDT MCHC 32 32 - 36 01/09/2022 [facility] g/dL 7:30 AM CDT RDW 18.3 (H) 9.0 - 01/09/2022 [facility] 14.5 % 7:30 AM CDT Platelet Count 293 140 - 01/09/2022 [facility] 400 7:30 AM Th/uL CDT MPV 10.5 9.4 - 01/09/2022 [facility] 12.3 fL 7:30 AM CDT Nucleated RBCs 0 0 - 0 01/09/2022 SLRL /100 WBC 7:30 AM CDT Anatomical Location / Laterality Collection Method / Volume Smitha ection Time Received Time Specimen (Source) Venipuncture / Unknown 01/09/2022 6:14 AM CDT 0 01/09/2022 6:58 AM CDT Blood (Venous) Chuck Kelley MD LAB BLOOD ORDERABLES City/State/ZIP Code Phone Number Performing Address Organization [place], [place] [id number] [place] [address] * Electrocardiogram (ECG) (01/09/2022 5:25 AM CDT) Only the most recent of 2 results within the time period is included. Pathologist Signature Component Value Ref Test Method Analysis Performed A t Range Time QRSd 159 [facility] QT 427 [facility]ER QTC 502 [facility] ECGHR 83 [facility]ER Anatomical Location / Laterality Collection Method / Volume Smitha ection Time Received Time Specimen (Source) 01/09/2022 5:25 AM CDT Narrative TRAC[facility]ASTER - 01/09/2022 2:59 PM CDT [facility] Test Date: 2022-01-09 Pat Name: AVEL FAYE Department: HS Room: H618 Gender: Male Perinatal Coordinator: [id number] : 1950 Requested By: CHUCK KELLEY Order Number: [id number] Reading : Anna Quintanilla Measurements Intervals Benjamin Rate: 83 P: 0 IA: QRS: -68 QRSD: 159 T: 89 QT: 427 QTc: 502 Interpretive Statements Uncertain rhythm: review possible ACCELERATED JUNCTIONAL RHYTHM Nonspecific IVCD with LAD Inferior infarct, old Anteroseptal infarct, age indeterminate Electronically Signed On 01-09-2022 14:59:15 CDT by Anna Quintanilla Procedure Note Anna Quintanilla MD - 01/09/2022 [facility] Test Date: 2022-01-09 Pat Name: AVEL FAYE Department: HS6 Room: H618 Gender: Male Perinatal Coordinator: [id number] : 1950 Requested By: CHUCK KELLEY Order Number: [id number] Reading MD: Anna Quintanilla Measurements Intervals Benjamin Rate: 83 P: 0 IA: QRS: -68 QRSD: 159 T: 89 QT: 427 QTc: 502 Interpretive Statements Uncertain rhythm: review possible ACCELERATED JUNCTIONAL RHYTHM Nonspecific IVCD with LAD Inferior infarct, old Anteroseptal infarct, age indeterminate Electronically Signed On 01-09-2022 14:59:15 CDT by Anna Quintanilla Chuck Kelley MD ECG ORDERABLES City/State/ZIP Code Phone Number Performing Address Organization [facility]ER * Platelet (01/08/2022 4:36 PM CDT) Only the most recent of 4 results within the time period is included. Pathologist Signature Component Value Ref Test Method Analysis Performed A t Range Time Platelet Count 317 140 - 01/08/2022 SLRL 400 5:10 PM Th/uL CDT Anatomical Location / Laterality Collection Method / Volume Smitha ection Time Received Time Specimen (Source) Venipuncture / Unknown 01/08/2022 4:36 PM CDT 0 01/08/2022 4:51 PM CDT Blood (Venous) Chuck Kelley MD LAB BLOOD ORDERABLES City/State/ZIP Code Phone Number Performing [place] [address] [facility] [address] [facility] * ICD INSERTION DUAL, UPPER EXTREMITY VENOGRAM (01/08/2022 3:06 PM CDT) Modality Anatomical Region Laterality Cardiac Electrophysiology Anatomical Location / Laterality Collection Method / Volume Smitha ection Time Received Time Specimen (Source) Narrative 01/08/2022 3:25 PM CDT [facility] CARDIAC ELECTROPHYSIOLOGY SERVICE OPERATIVE REPORT Date of Procedure: 01/08/2022 PREOPERATIVE DIAGNOSES: Sustained ventricular tachycardia POSTOPERATIVE DIAGNOSES: Status-post dual chamber implantable cardioverter defibrillator (ICD) implantation PROCEDURES PERFORMED: 1. Left upper extremity venogram. 2. ICD implantation. ATTENDING SYSTEM AUDITOR: Anali Feliz MD FELLOW SYSTEM AUDITOR: Dr. Chuck Kelley ESTIMATED BLOOD LOSS: <5 mL. COMPLICATIONS: None ANESTHESIA: Conscious sedation and local anesthetic INDICATIONS FOR PROCEDURE: Briefly, the patient is a 71 y.o. year old male with a history of non-ischemic cardiomyopathy, systolic dysfunction with an LVEF of 24% and NYHA functional class III heart failure who presented for ICD implantation for secondary prevention of sudden cardiac arrest without a reversible cause. An atrial lead was implanted for first degree heart block, paroxysmal atrial fibrillation. PROCEDURE AND FINDINGS: The patient was brought to the electrophysiology laboratory in a fasting state. Written informed consent was obtained. Intravenous prophylactic antibiotics were administered prior to the procedure. A pre-procedural venogram was performed by infusing intravenous contrast through the antecubital vein under cine-fluoroscopic visualization. This confirmed the usual anatomic location and patency of the left axillary and subclavian venous system. After the patient and site of implantation were prepped and draped in the usual sterile fashion and after adequate anesthesia was given, the skin was infiltrated with a mixture of 1% lidocaine and 0.5% bupivicaine. The skin was incised with a #10 scalpel. Blunt and electrosurgical dissection was carried out to the level of the prepectoral fascia with careful attention paid to hemostasis. A pocket to house the pulse generator was formed between the prepectoral fascia and subcutaneous fat with a combination of blunt and electrosurgical dissection. Once adequate hemostasis was confirmed within the pocket, venous access was obtained. Using the modified Seldinger technique, 7 and 9 Yoruba peel away sheaths were placed in the axillary vein and used to deliver leads to the right ventricular apex and right atrial appendage locations. The leads were attached via active fixation and demonstrated to be stable. Adequate sensing, pacing impedance and pacing threshold parameters were obtained. There was no evidence of diaphragmatic stimulation at 10 V output. The peel away sheaths were removed and the lead collars were anchored to the pectoral muscle with two 0 Ethibond sutures. Tug testing of the leads confirmed stability and lead slack was assessed as optimal with fluoroscopy. The pocket was irrigated with antibiotic solution. The lead tips were cleaned and secured within the appropriate ports on the new pulse generator. Tug testing was performed on all connections. The device and leads were placed within the pocket with the coiled redundant leads were posterior to the pulse generator. The pocket was closed with running 3-0 Vicryl suture in two layers followed by liquid surgical adhesive for the skin. The wound was covered with a sterile dressing. DEVICE DATA: Devices ICD Implant Defibrillator Evera Mri Xt [id number] - [id number] - Implanted (Left) Chest Inventory item: IMPLANT DEFIBRILLATOR EVERA MRI DR XT [id number] Model/Cat number: [id number] Serial number: [id number] Brace Maker: [employer] CARDIAC RHYTHM MGMT Lot number: [id number] Area/Chamber: Chest Laterality: Left Implant Date: 01/08/2022 As of 01/08/2022 Status: Implanted Mode: MVP Lower Rate: 50 Upper Rate: 130 Lead Implant Lead Sprint Quattro 62cm Secure S [id number] - [id number] - Implanted Heart Ventricle Inventory item: IMPLANT LEAD SPRINT QUATTRO 62CM SECURE S [id number] Model/Cat number: [id number] Serial number: [id number] Brace Maker: [employer]TR[employer] CARDIAC RHYTHM MGMT Lot number: [id number] Area/Chamber: Heart Ventricle Implant Date: 01/08/2022 As of 01/08/2022 Status: Implanted Location: RV Sensing Threshold (mV): 6.8 Slew Rate (V/s): 2.6 Pacing Impedance (ohms): 559 Capture Threshold (V): 0.5 Capture Threshold (mA): 1.1 Implant Lead Pacemaker Atrial/Ventricle 52cm Capsure Fix Novus 4076-52 - [id number] - Implanted (Right) Heart Atrium Inventory item: IMPLANT LEAD PACEMAKER ATRIAL/VENTRICLE 52CM CAPSURE FIX NOVUS 4076-52 Model/Cat number: [id number] Serial number: [id number] Brace Maker: [employer]TR[employer] CARDIAC RHYTHM MGMT Lot number: [id number] Area/Chamber: Heart Atrium Implant Date: 01/08/2022 As of 01/08/2022 Status: Implanted Location: RA Sensing Threshold (mV): 3.1 Slew Rate (V/s): 0.8 Pacing Impedance (ohms): 627 Capture Threshold (V): 2 Capture Threshold (mA): 4.2 Defibrillation testing was not performed. SUMMARY: Dual chamber implantable cardioverter defibrillator implant. RECOMMENDATIONS: 1. AM PA/LAT CXR and device interrogatio n 2. Wound check in 7-10 days, device chec k in 3 months. IAnali, Attending Physician, was present for and performed or supervised all cabezas aspects of this procedure. Je Torres NP CV ELECTROPHYSIOLOGY ORDERA BLES * SPIROMETRY ONLY, DLCO (01/07/2022 1:21 PM CDT) Pathologist Signature Component Value Ref Test Method Analysis Performed A t Range Time FVC (pre) 2.11 3.37 - 01/07/2022 VYAIRE 5.81 L 1:22 PM CDT FEV1 (pre) 1.67 2.44 - 01/07/2022 VYAIRE 4.33 L 1:22 PM CDT FEV1/FVC (pre) 79.10 61.35 - 01/07/2022 VYAIRE 87.26 % 1:22 PM CDT UDC89-93% (pre) 1.57 1.04 - 01/07/2022 VYAIRE 4.54 L/s 1:22 PM CDT PEF (pre) 4.44 6.33 - 01/07/2022 VYAIRE 11.36 1:22 PM L/s CDT DLCO_SB 14.64 22.39 - 01/07/2022 VYAIRE 36.24 1:22 PM ml/(min* CDT mmHg) DLCOcSB 16.69 22.39 - 01/07/2022 VYAIRE 36.24 1:22 PM ml/(min* CDT mmHg) DL/VA 3.77 2.73 - 01/07/2022 VYAIRE 4.85 1:22 PM ml/(min* CDT mmHg*L) FVC (pre%PRED) 46 % 01/07/2022 VYAIRE 1:22 PM CDT FEV1 (pre%PRED) 49 % 01/07/2022 VYAIRE 1:22 PM CDT [id number] (pre%PRED) 105 % 01/07/2022 VYAIRE 1:22 PM CDT [id number] (pre%PRED) 63 % 01/07/2022 VYAIRE 1:22 PM CDT PEF (pre%PRED) 50 % 01/07/2022 VYAIRE 1:22 PM CDT DLCO_SB (%pred) 50 % 01/07/2022 VYAIRE 1:22 PM CDT DLVA (%PRED) 100 % 01/07/2022 VYAIRE 1:22 PM CDT Modality Anatomical Region Laterality PFT Anatomical Location / Laterality Collection Method / Volume Smitha ection Time Received Time Specimen (Source) 01/07/2022 12:59 PM CDT Impressions 01/07/2022 2:18 PM CDT SPIROMETRY: Spirometry suggestive of restrictive process (FEV1/FVC Ratio>75%) LUNG VOLUMES: Lung volumes not performed due to IV restrictions DIFFUSION CAPACITY: Moderate Decrease (40-59%), Reduction in diffusion proportional to reduced alveolar volume. FLOW VOLUMES LOOPS: Restricted CONCLUSION: Possible restriction Narrative 01/07/2022 2:18 PM CDT [facility] Measurement date01/07/22 Pulmonary Function Report - SPIROMETRY Pred Pre Pre%Pred FVC L 4.58 2.11 46 FEV 1 L 3.41 1.67 49 FEV1/FVC % 75 79 105 FEF 25-75% L/s 2.48 1.57 63 PEF L/s 8.85 4.44 50 PIF L/s 7.75 2.88 37 DIFFUSING CAPACITY Pred Pre Pre%Pred DLCO_SBml/(min*mmHg)29.32 14.64 50 DLCOcSBml/(min*mmHg)29.32 16.69 57 DL/VAml/(min*mmHg*L) 3.79 3.77 100 Hb g(Hb)/dL 10.90 VA_SB L 7.59 3.88 51 Trend Table Parameter FVC FEV1 FEV1/FVC TLC DLCO_SB 01/07/2022 2.11 1.67 79 14.64 Good patient effort and technique. The results of this test meet the ATS standards for acceptability and reproducibility. DLCO corrected for Hemoglobin of 10.9 from blood work collected on 01/07/2022. Lung volumes not performed due to IV restrictions. Agnes Unger MD PFT ORDERABLES * Heparin Anti Factor Xa, Unfractionated Heparin (01/07/2022 7:19 AM CDT) Only the most recent of 15 results within the time period is included. Pathologist Signature Component Value Ref Test Method Analysis Performed A t Range Time Unfractionated 0.40 0.30 - 01/07/2022 [facility]RL Heparin Anti Factor 0.70 9:11 AM Xa Assay IU/mL CDT Comment: Therapeutic range may vary based on physician orders or order set. Anatomical Location / Laterality Collection Method / Volume Smitha ection Time Received Time Specimen (Source) Venipuncture / Unknown 01/07/2022 7:19 AM CDT 0 01/07/2022 8:37 AM CDT Blood (Venous) Ian Owens MD LAB BLOOD ORDERABLES City/State/ZIP Code Phone Number Performing [place] [address] * COVID-19 Diagnostic PCR (PUI) (01/05/2022 5:31 PM CDT) Pathologist Signature Component Value Ref Test Method Analysis Performed A t Range Time SARS-COV-2 PCR Negative Negative 01/06/2022 [facility] 6:39 AM CDT Anatomical Location / Laterality Collection Method / Volume Smitha ection Time Received Time Specimen (Source) Non-Blood Collection / Unknown 01/05/2022 5:31 PM CDT 01/05/2022 6:00 PM CDT Swab (NASOPHARYNGEAL SWAB) Narrative [facility] - 01/06/2022 6:39 AM CDT This RT-PCR test has been authorized by the FDA under an Emergency Use Authorization (EUA) for use by authorized laboratories. Ponce Fonseca MD MICROBIOLOGY - [facility]AL [facility] City/State/ZIP Code Phone Number Performing [place] [address] * Cath Outside images for PACS (01/05/2022 10:38 AM CDT) Anatomical Location / Laterality Collection Method / Volume Smitha ection Time Received Time Specimen (Source) Ponce Fonseca MD IMG OUTSIDE IMAGES City/State/ZIP Code Phone Number Performing Address Organization [facility] * Echo Outside images for PACS (01/05/2022 10:38 AM CDT) Anatomical Location / Laterality Collection Method / Volume Smitha ection Time Received Time Specimen (Source) Ponce Fonseca MD CV ECHO ORDERABLES City/State/ZIP Code Phone Number Performing Address Organization [facility] * US Carotid Duplex bilat (01/03/2022 8:53 AM CDT) Modality Anatomical Region Laterality Ultrasound Neck Anatomical Location / Laterality Collection Method / Volume Smitha ection Time Received Time Specimen (Source) 01/03/2022 8:32 AM CDT Impressions 01/03/2022 9:25 AM CDT 1. Less than 50% stenosis of the inte rnal carotid arteries. Mild calcified plaque bilaterally. 2. Antegrade flow in the vertebral art eries. READING SITE: [facility] Narrative 01/03/2022 9:25 AM CDT Patient: AVEL FAYE Sex#: M #: [id number] Sera#: [id number] Location: [address] H618-01 Ordering Provider: AGNES UNGER Procedure Requested: [id number] US CAROTID DUPLEX BILAT Reason for Exam: LVAD Evaluation Exam Ordered: 01/01/2022 0959 Begin exam date/time: 01/03/2022 0832 Exam Date/Time: 01/03/2022 0853 US CAROTID DUPLEX BILAT DATE: 01/03/2022 8:53 AM INDICATION: LVAD Evaluation COMPARISON: None. FINDINGS: All velocities are listed in cm/sec. RIGHT: CCA PROX PSV: 68 EDV: 11 MID PSV: 65 EDV:12 DISTAL PSV: 54 EDV: 14 ICA PROX PSV: 47 EDV: 12 MID PSV: 59 EDV: 20 DISTAL PSV: 50 EDV: 14 ICA/CCA Ratio ICA/CCA : 1.09 ECA PSV: 62 EDV: 7 Subclavian PSV: 85 Vertebral Artery: PSV: 26 EDV: 6 Flow Direction: Antegrade PLAQUE: Mild calcified plaque in the proximal ICA and ECA. LEFT: CCA PROX PSV: 88 EDV: 14 MID PSV: 66 EDV: 12 DISTAL PSV: 56 EDV: 12 ICA PROX PSV: 97 EDV: 18 MID PSV: 64 EDV: 17 DISTAL PSV: 62 EDV: 20 ICA/CCA Ratio ICA/CCA:1.73 ECA PSV: 132 EDV: 9 Subclavian PSV: 80 Vertebral Artery: PSV: 26 EDV: 9 Flow Direction: Antegrade PLAQUE: Mild calcified plaque in the distal common carotid artery extending into the carotid bulb and proximal ECA. Procedure Note Esthela Bland MD - 01/03/2022 Patient: AVEL FAYE Sex#: M #: [id number] Sera#: [id number] Location: [address] H618-01 Ordering Provider: AGNES UNGER Procedure Requested: [id number] US CAROTID DUPLEX BILAT Reason for Exam: LVAD Evaluation Exam Ordered: 01/01/2022 0959 Begin exam date/time: 01/03/2022 0832 Exam Date/Time: 01/03/2022 0853 US CAROTID DUPLEX BILAT DATE: 01/03/2022 8:53 AM INDICATION: LVAD Evaluation COMPARISON: None. FINDINGS: All velocities are listed in cm/sec. RIGHT: CCA PROX PSV: 68 EDV: 11 MID PSV: 65 EDV:12 DISTAL PSV: 54 EDV: 14 ICA PROX PSV: 47 EDV: 12 MID PSV: 59 EDV: 20 DISTAL PSV: 50 EDV: 14 ICA/CCA Ratio ICA/CCA : 1.09 ECA PSV: 62 EDV: 7 Subclavian PSV: 85 Vertebral Artery: PSV: 26 EDV: 6 Flow Direction: Antegrade PLAQUE: Mild calcified plaque in the proximal ICA and ECA. LEFT: CCA PROX PSV: 88 EDV: 14 MID PSV: 66 EDV: 12 DISTAL PSV: 56 EDV: 12 ICA PROX PSV: 97 EDV: 18 MID PSV: 64 EDV: 17 DISTAL PSV: 62 EDV: 20 ICA/CCA Ratio ICA/CCA:1.73 ECA PSV: 132 EDV: 9 Subclavian PSV: 80 Vertebral Artery: PSV: 26 EDV: 9 Flow Direction: Antegrade PLAQUE: Mild calcified plaque in the distal common carotid artery extending into the carotid bulb and proximal ECA. IMPRESSION 1. Less than 50% stenosis of the inter nal carotid arteries. Mild calcified plaque bilaterally. 2. Antegrade flow in the vertebral sara colleen. READING SITE: [facility] Agnes Unger MD CV VASCULAR ORDERABLES * CV MRI Cardiac w wo contrast (01/03/2022 8:19 AM CDT) Pathologist Signature Component Value Ref Test Method Analysis Performed A t Range Time Ejection Fraction % NUCMED Modality Anatomical Region Laterality Magnetic Resonance Chest, Vascular Anatomical Location / Laterality Collection Method / Volume Smitha ection Time Received Time Specimen (Source) 01/03/2022 12:00 PM CDT Narrative 01/06/2022 3:41 PM CDT NAME: Avel Faye :[id number] GENDER:[facility] CPI:[id number] [facility] NUM:[id number] TEST:Cardiac MRI with and without contrast and Imaging Flow Velocity Map TEST DATE: TEST LOCATION:L PATIENT STATUS:I REFERRING PHYSICIAN:Oralia Avelar MD REASON FOR TEST:Evaluate NICM(Unspecified NICM) PROCEDURE NOTE: Patient was imaged on the Colo [id number] 1.5T magnet scanner. A total of 40ml Dotarem contrast media was injected intravenously. Rest Images were acquired post injection. Sequences Performed During Study: Bright Blood Localizers, Steady State Free Precession, Fast CINE Phase Contrast, LAVA, CINE Inversion Recovery, Immediate Contrast Enhancement, Delayed Contrast Enhancement, Myocardial T2*, Hepatic T2*, T1-Mapping, 4D Flow, T2 Mapping, PSIR CLINICAL RESPONSE:N/A INTERPRETATION: LEFT VENTRICLE: Moderate left ventricular enlargement. The indexed left ventricular end- diastolic volume = 121 mL/m2 (normal range for men = 57-105 mL/m2). The calculated left ventricular ejection fraction = 25% (normal range = 57-77%). LV stroke volume = 74 mL. Normal left ventricular wall thickness with a maximum measurement of 9 mm. Global hypokinesis. No intracardiac mass or thrombus. Normal myocardial iron content. Normal myocardial nulling argues against cardiac amyloidosis. No myocardial late gadolinium enhancement to suggest inflammation, fibrosis or infarction. Abnormal global T1 mapping relaxation time of 1164 msec (normal range for men = 922-1038 msec). RIGHT VENTRICLE: Severe right ventricular enlargement. The indexed right ventricular end- diastolic volume = 144 mL/m2 (normal range for men = 61-121 mL/m2). The calculated right ventricular ejection fraction = 25% (normal range = 51-72%). RV stroke volume = 88 mL. No regional dyskinesis or aneurysmal outpouching to suggest arrhythmogenic right ventricular cardiomyopathy. TAPSE = 15 mm. Qp:Qs = 1.0. ATRIA: Severe left and moderate right atrial enlargement. Intact atrial septum. VALVES: Mild aortic regurgitation (regurgitant fraction = 5%, regurgitant volume = 4 ml). Aortic stenosis is noted. Severity is not assessed. Mild mitral regurgitation (regurgitant fraction = 12%, regurgitant volume = 9 ml). Moderate tricuspid regurgitation (regurgitant fraction = 28%, regurgitant volume = 25 ml). PERICARDIUM: Normal pericardial thickness. No pericardial effusion. No pericardial late gadolinium enhancement. VESSELS: Normal caliber ascending aorta (32 mm x 31 mm). Normal caliber descending aorta without coarctation. Conventional [id number] arch anatomy. Normal caliber main pulmonary artery. Conventional pulmonary venous anatomy. EXTRA CARDIAC FINDINGS: Large right and small left pleural effusion with atelectasis of the bilateral lung bases. CONCLUSION:1. Moderate left ventricular enlargement. LVEF = 25%. 2. Severe right ventricular enlargemen t. RVEF = 25%. 3. No late gadolinium enhancement to s uggest inflammation, fibrosis or infarction. 4. Moderate tricuspid regurgitation. Mild mitral and aortic regurgitation. Aortic stenosis is noted. Severity is not assessed. 5. Large right and small left pleural ef fusion with atelectasis of the bilateral lung bases. Dictated by Moshe Neely MD. Moshe Neely MD [address] [facility], [address] [place] [address] DICTATED:2022-01-03 16:05:11.0 TRANSCRIBED:2022-01-06 12:55:15.0 PROVIDER APPROVAL:2022-01-06 15:01:45.0 Procedure Note Moshe Neely MD - 01/06/2022 NAME: Avel Faye :[id number] GENDER:[facility] CPI:[id number] [facility] NUM:[id number] TEST:Cardiac MRI with and without contrast and Imaging Flow Velocity Map TEST DATE: TEST LOCATION:L PATIENT STATUS:I REFERRING PHYSICIAN:Oralia Avelar MD REASON FOR TEST:Evaluate NICM(Unspecified NICM) PROCEDURE NOTE: Patient was imaged on the Colo [id number] 1.5T magnet scanner. A total of 40ml Dotarem contrast media was injected intravenously. Rest Images were acquired post injection. Sequences Performed During Study: Bright Blood Localizers, Steady State Free Precession, Fast CINE Phase Contrast, LAVA, CINE Inversion Recovery, Immediate Contrast Enhancement, Delayed Contrast Enhancement, Myocardial T2*, Hepatic T2*, T1-Mapping, 4D Flow, T2 Mapping, PSIR CLINICAL RESPONSE:N/A INTERPRETATION: LEFT VENTRICLE: Moderate left ventricular enlargement. The indexed left ventricular end- diastolic volume = 121 mL/m2 (normal range for men = 57-105 mL/m2). The calculated left ventricular ejection fraction = 25% (normal range = 57-77%). LV stroke volume = 74 mL. Normal left ventricular wall thickness with a maximum measurement of 9 mm. Global hypokinesis. No intracardiac mass or thrombus. Normal myocardial iron content. Normal myocardial nulling argues against cardiac amyloidosis. No myocardial late gadolinium enhancement to suggest inflammation, fibrosis or infarction. Abnormal global T1 mapping relaxation time of 1164 msec (normal range for men = 922-1038 msec). RIGHT VENTRICLE: Severe right ventricular enlargement. The indexed right ventricular end- diastolic volume = 144 mL/m2 (normal range for men = 61-121 mL/m2). The calculated right ventricular ejection fraction = 25% (normal range = 51-72%). RV stroke volume = 88 mL. No regional dyskinesis or aneurysmal outpouching to suggest arrhythmogenic right ventricular cardiomyopathy. TAPSE = 15 mm. Qp:Qs = 1.0. ATRIA: Severe left and moderate right atrial enlargement. Intact atrial septum. VALVES: Mild aortic regurgitation (regurgitant fraction = 5%, regurgitant volume = 4 ml). Aortic stenosis is noted. Severity is not assessed. Mild mitral regurgitation (regurgitant fraction = 12%, regurgitant volume = 9 ml). Moderate tricuspid regurgitation (regurgitant fraction = 28%, regurgitant volume = 25 ml). PERICARDIUM: Normal pericardial thickness. No pericardial effusion. No pericardial late gadolinium enhancement. VESSELS: Normal caliber ascending aorta (32 mm x 31 mm). Normal caliber descending aorta without coarctation. Conventional [id number] arch anatomy. Normal caliber main pulmonary artery. Conventional pulmonary venous anatomy. EXTRA CARDIAC FINDINGS: Large right and small left pleural effusion with atelectasis of the bilateral lung bases. CONCLUSION:1. Moderate left ventricular enlargement. LVEF = 25%. 2. Severe right ventricular enlargement . RVEF = 25%. 3. No late gadolinium enhancement to martinez ggest inflammation, fibrosis or infarction. 4. Moderate tricuspid regurgitation. M ild mitral and aortic regurgitation. Aortic stenosis is noted. Severity is not assessed. 5. Large right and small left pleural ef fusion with atelectasis of the bilateral lung bases. Dictated by Moshe Neely MD. Moshe Neely MD [address] [facility], [address] [place] [address] DICTATED:2022-01-03 16:05:11.0 TRANSCRIBED:2022-01-06 12:55:15.0 PROVIDER APPROVAL:2022-01-06 15:01:45.0 Agnes Unger MD CV MRI * Protein Urine Quant 24HR (01/02/2022 11:58 PM CDT) Pathologist Signature Component Value Ref Test Method Analysis Performed A t Range Time Creatinine Urine 20.0 mg/dL 01/03/2022 [facility] 6:31 AM CDT Protein/Creat Ratio 01/03/2022 [facility] 6:31 AM CDT Comment: Urine Protein is too low to be measured. Calculation cannot be performed. Protein Urine 24 HR 01/03/2022 [facility] Calc 6:31 AM CDT Comment: Urine Protein is too low to be measured. Calculation cannot be performed. Protein Urine <6.0 mg/dL 01/03/2022 [facility] Quantitative 6:31 AM CDT Total Volume 5,000 mL 01/03/2022 [facility] 6:31 AM CDT Anatomical Location / Laterality Collection Method / Volume Smitha ection Time Received Time Specimen (Source) Non-Blood Collection / Unknown 01/02/2022 11:58 PM CDT 01/03/2022 12:10 AM CDT Urine (Urine) Agnes Unger MD URINE ORDERABLES City/State/ZIP Code Phone Number Performing [place] [address] [facility] [address] [place] [address] * (ABNORMAL) Creatinine Clearance (Urine) (01/02/2022 11:58 PM CDT) Pathologist Signature Component Value Ref Test Method Analysis Performed A t Range Time Creatinine Clearance 55.90 (L) 60.00 - 01/03/2022 SLRL 180.00 12:58 AM ml/min CDT Total Volume 5,000 mL 01/03/2022 [facility] 12:58 AM CDT Creatinine 1.00 mg/dL 01/03/2022 [facility]RL 12:58 AM CDT Creatinine Urine 22.8 mg/dL 01/03/2022 [facility] 12:58 AM CDT Hours of Collection 24 Hours 01/03/2022 [facility] 12:58 AM CDT Creatinine Urine 24 1.1 0.8 - 01/03/2022 [facility] Hour Calculation 2.0 12:58 AM g/24hr CDT Anatomical Location / Laterality Collection Method / Volume Smitha ection Time Received Time Specimen (Source) Non-Blood Collection / Unknown 01/02/2022 11:58 PM CDT 01/03/2022 12:10 AM CDT Urine (Urine) Agnes Unger MD URINE ORDERABLES City/State/ZIP Code Phone Number Performing [place] [address] * CT Chest wo contrast (01/02/2022 3:22 PM CDT) Modality Anatomical Region Laterality Computed Tomography Lung, Chest Anatomical Location / Laterality Collection Method / Volume Smitha ection Time Received Time Specimen (Source) 01/02/2022 3:22 PM CDT Impressions 01/02/2022 4:03 PM CDT 1. Moderate right and small left pleural effusions with associated right worse than left bibasilar relaxation atelectases. 2. No discrete focal consolidation or co ncerning pulmonary nodule or mass. 3. Coronary and aortic atherosclerosis. Scattered calcifications of the aortic valve leaflets for which some degree of aortic stenosis is suspected. READING SITE: [place] [address] Narrative 01/02/2022 4:03 PM CDT Patient: AVEL FAYE Sex#: M #: 1950 Sera#: [id number] Location: [address] H618-01 Ordering Provider: AGNES UNGER Procedure Requested: [id number] CT CHEST WO CONTRAST Reason for Exam: Smoking history Exam Ordered: 01/01/2022 0959 Begin exam date/time: 01/02/2022 1522 Exam Date/Time: 01/02/2022 1522 COMPARISON STUDY: None. TECHNIQUE: Unenhanced axial images were obtained through the lungs and upper abdomen. Coronal MIP images and coronal and sagittal multiplanar reconstructions were also obtained. FINDINGS: Lungs and Airways: Scattered bibasilar relaxation atelectases. No discrete focal consolidation. No concerning pulmonary nodule or mass. No endoluminal lesion. Pleura: Moderate right and small left pleural effusions. Heart and Mediastinum: No dominant focal lesion is noted in the thyroid bed. No axillary or supraclavicular lymphadenopathy. No mediastinal, hilar or retrocrural lymphadenopathy. Mild cardiomegaly with small amount of pericardial effusion. Scattered calcifications of the aortic valve leaflets. Atherosclerosis of the thoracic aorta and coronary arteries. The pulmonary trunk is normal in diameter. Abdomen: Please refer to additional report on CT of the abdomen performed on the same day. Bones and Soft Tissues: Mild degenerative changes throughout the spine. No evidence of aggressive lytic or blastic lesions. Bilateral gynecomastia. Procedure Note Ghassan Burkett MD - 01/02/2022 Patient: AVEL FAYE Sex#: M #: 1950 Sera#: [id number] Location: [facility] H618-01 Ordering Provider: AGNES UNGER Procedure Requested: [id number] CT CHEST WO CONTRAST Reason for Exam: Smoking history Exam Ordered: 01/01/2022 0959 Begin exam date/time: 01/02/2022 1522 Exam Date/Time: 01/02/2022 152 COMPARISON STUDY: None. TECHNIQUE: Unenhanced axial images were obtained through the lungs and upper abdomen. Coronal MIP images and coronal and sagittal multiplanar reconstructions were also obtained. FINDINGS: Lungs and Airways: Scattered bibasilar relaxation atelectases. No discrete focal consolidation. No concerning pulmonary nodule or mass. No endoluminal lesion. Pleura: Moderate right and small left pleural effusions. Heart and Mediastinum: No dominant focal lesion is noted in the thyroid bed. No axillary or supraclavicular lymphadenopathy. No mediastinal, hilar or retrocrural lymphadenopathy. Mild cardiomegaly with small amount of pericardial effusion. Scattered calcifications of the aortic valve leaflets. Atherosclerosis of the thoracic aorta and coronary arteries. The pulmonary trunk is normal in diameter. Abdomen: Please refer to additional report on CT of the abdomen performed on the same day. Bones and Soft Tissues: Mild degenerative changes throughout the spine. No evidence of aggressive lytic or blastic lesions. Bilateral gynecomastia. IMPRESSION 1. Moderate right and small left pleural effusions with associated right worse than left bibasilar relaxation atelectases. 2. No discrete focal consolidation or co ncerning pulmonary nodule or mass. 3. Coronary and aortic atherosclerosis. Scattered calcifications of the aortic valve leaflets for which some degree of aortic stenosis is suspected. READING SITE: [place] [address] Agnes Unger MD [facility] [place] ORDERABLES * CT Abdomen wo contrast (01/02/2022 3:22 PM CDT) Modality Anatomical Region Laterality Computed Tomography Abdomen Anatomical Location / Laterality Collection Method / Volume Smitha ection Time Received Time Specimen (Source) 01/02/2022 3:22 PM CDT Impressions 01/02/2022 3:48 PM CDT Punctate nonobstructing left renal calculi. Otherwise unremarkable noncontrast appearance of the kidneys. For other findings please see above. READING SITE: [facility] 01/02/2022 3:48 PM CDT Patient: AVEL FAYE Sex#: M #: 1950 Sera#: [id number] Location: [address] H618-01 Ordering Provider: RAMIRO DACOSTA Procedure Requested: [id number] CT ABDOMEN WO CONTRAST Reason for Exam: L kidney not seen on US Exam Ordered: 01/02/2022 0938 Begin exam date/time: 01/02/2022 1522 Exam Date/Time: 01/02/[address] ABDOMEN WO CONTRAST INDICATION: Evaluate left kidney TECHNIQUE: CT of the abdomen without contrast. Oral contrast was not given. Coronal and sagittal reformatted images were performed. COMPARISON: Abdominal ultrasound December 24, 2021. FINDINGS: Lower Thorax: Please see separately dictated report of the chest from the same day for findings above the diaphragm. Liver: Ill-defined 12 mm left hepatic lobe hypodense lesion incompletely evaluated. Gallbladder/Biliary Tree: Hyperdense material in the gallbladder. Spleen: Splenic granulomas. Pancreas: Normal. Adrenal Glands: Normal. Kidneys/Ureters: Nonobstructing left renal calculi. Gastrointestinal: Normal. Lymph Nodes: Normal. Vessels: Atherosclerotic changes of the aortoiliac vasculature without evidence of an aneurysm. Peritoneum/Retroperitoneum: Ascites. 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 Anasarca. Procedure Note Ian Jon DO - 01/02/2022 Patient: AVEL FAYE Sex#: M #: 1950 Sera#: [id number] Location: [address] H618-01 Ordering Provider: RAMIRO DACOSTA Procedure Requested: [id number] CT ABDOMEN WO CONTRAST Reason for Exam: L kidney not seen on US Exam Ordered: 01/02/2022 0938 Begin exam date/time: 01/02/2022 1522 Exam Date/Time: 01/02/[address] ABDOMEN WO CONTRAST INDICATION: Evaluate left kidney TECHNIQUE: CT of the abdomen without contrast. Oral contrast was not given. Coronal and sagittal reformatted images were performed. COMPARISON: Abdominal ultrasound December 24, 2021. FINDINGS: Lower Thorax: Please see separately dictated report of the chest from the same day for findings above the diaphragm. Liver: Ill-defined 12 mm left hepatic lobe hypodense lesion incompletely evaluated. Gallbladder/Biliary Tree: Hyperdense material in the gallbladder. Spleen: Splenic granulomas. Pancreas: Normal. Adrenal Glands: Normal. Kidneys/Ureters: Nonobstructing left renal calculi. Gastrointestinal: Normal. Lymph Nodes: Normal. Vessels: Atherosclerotic changes of the aortoiliac vasculature without evidence of an aneurysm. Peritoneum/Retroperitoneum: Ascites. 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 Anasarca. IMPRESSION Punctate nonobstructing left renal calculi. Otherwise unremarkable noncontrast appearance of the kidneys. For other findings please see above. READING SITE: [facility] Ramiro Dacosta PA-C IM CT ORDERABLES * Oxyhemoglobin Venous (01/02/2022 4:03 AM CDT) Only the most recent of 4 results within the time period is included. Pathologist Signature Component Value Ref Test Method Analysis Performed A t Range Time Oxyhemoglobin Venous 70.9 70.0 - 01/02/2022 [facility]RL 76.0 % 4:18 AM THB CDT Anatomical Location / Laterality Collection Method / Volume Smitha ection Time Received Time Specimen (Source) Venipuncture / Unknown 01/02/2022 4:03 AM CDT 0 01/02/2022 4:14 AM CDT Blood (Venous) Maggie Galvin MD LAB BLOOD ORDERABLES City/State/ZIP Code Phone Number Performing [place] [address] [facility] [address] [place] [address] * Extra Urine Specimen in Yellow w/out Preservative (01/01/2022 10:57 PM CDT) Only the most recent of 2 results within the time period is included. Anatomical Location / Laterality Collection Method / Volume Smitha ection Time Received Time Specimen (Source) Non-Blood Collection / Unknown 01/01/2022 10:57 PM CDT 01/01/2022 11:02 PM CDT Urine (Urine Clean Catch) Agnes Unger MD URINE ORDERABLES City/State/ZIP Code Phone Number Performing [place] [address] * Extra Urine Specimen in Mckay Tube (01/01/2022 10:57 PM CDT) Only the most recent of 2 results within the time period is included. Pathologist Signature Component Value Ref Test Method Analysis Performed A t Range Time RAINBOW DRAW HOLD Raymond 01/02/2022 [facility] SPECIMENS Draw/Extra 12:03 PM Tube Hold CDT Specimen Anatomical Location / Laterality Collection Method / Volume Smitha ection Time Received Time Specimen (Source) Non-Blood Collection / Unknown 01/01/2022 10:57 PM CDT 01/01/2022 11:02 PM CDT Urine (Urine Clean Catch) Agnes Unger MD MICROBIOLOGY - GENERAL ORDE [facility] Code Phone Number Performing Address Organization [place], [place] [address] [place] [address] * Urinalysis (includes microscopic review, if indicated) (01/01/2022 10:57 PM CDT) Only the most recent of 2 results within the time period is included. Pathologist Signature Component Value Ref Test Method Analysis Performed A t Range Time Appearance, Urine Yellow Colorles 01/01/2022 [facility] s, 11:08 PM Yellow, CDT Dark Yellow Glucose Urine Negative Negative 01/01/2022 [facility] mg/dL 11:08 PM CDT Bilirubin Urine Negative Negative 01/01/2022 [facility] 11:08 PM CDT Ketones Urine Negative Negative 01/01/2022 [facility] 11:08 PM CDT Specific Auberry 1.006 1.005 - 01/01/2022 [facility] Urine 1.030 11:08 PM CDT Hemoglobin Urine Negative Negative 01/01/2022 [facility] 11:08 PM CDT PH Urine 6.0 5.0 - 01/01/2022 [facility]RL 8.0 11:08 PM CDT Protein Urine Qual Negative Negative 01/01/2022 [facility] , Trace 11:08 PM mg/dL CDT Urobilinogen Urine Normal Normal, 01/01/2022 [facility] Negative 11:08 PM , 1.0 CDT EU/dL Nitrite Urine Negative Negative 01/01/2022 [facility] 11:08 PM CDT Leukocyte Esterase Negative Negative 01/01/2022 [facility] 11:08 PM CDT Anatomical Location / Laterality Collection Method / Volume Smitha ection Time Received Time Specimen (Source) Non-Blood Collection / Unknown 01/01/2022 10:57 PM CDT 01/01/2022 11:02 PM CDT Urine (Urine Clean Catch) Agnes Unger MD URINE ORDERABLES City/State/ZIP Code Phone Number Performing [place] [address] * Fecal Occult Blood, diagnostic (non-neoplasm screening) (01/01/2022 7:24 PM CDT) Pathologist Signature Component Value Ref Test Method Analysis Performed A t Range Time Fecal Occult Blood Negative Negative 01/01/2022 [facility] 9:22 PM CDT Sample 1 Collection 01/01/2022 01/01/2022 [facility] Date 9:22 PM CDT Anatomical Location / Laterality Collection Method / Volume Smitha ection Time Received Time Specimen (Source) Non-Blood Collection / Unknown 01/01/2022 7:24 PM CDT 01/01/2022 7:29 PM CDT Stool (Stool) Agnes Unger MD BODY FLUIDS AND STOOLS [facility]DE [facility] City/State/ZIP Code Phone Number Performing [place] [address] * US Abdomen complete (01/01/2022 3:01 PM CDT) Modality Anatomical Region Laterality Ultrasound Abdomen Anatomical Location / Laterality Collection Method / Volume Smitha ection Time Received Time Specimen (Source) 01/01/2022 2:02 PM CDT Impressions 01/01/2022 3:39 PM CDT Gallbladder wall thickening with no sonographic Solorzano sign and no gallstones identified. Cannot exclude acalculous cholecystitis. READING SITE: [facility] THIS DOCUMENT HAS BEEN ELECTRONICALLY SIGNED BY ALINA Rincon 01/01/2022 3:39 PM CDT Patient: Avel Faye Sex#: M #: 1950 Sera#: [id number] Location: [address] Ordering Provider: AGNES UNGER Procedure Requested: [id number] US ABDOMEN COMPLETE Reason for Exam: LVAD Evaluation Exam Ordered: 01/01/2022 0959 Begin exam date/time: 01/01/20221401 Exam Date/Time: 01/01/20221401 PROCEDURE INFORMATION: Exam: US Abdomen Complete Exam date and time: 01/01/2022 2:02 PM Age: 71 years old Clinical indication: Screening exam; Other: Lvad eval; Additional info: Lvad evaluation TECHNIQUE: Imaging protocol: Real-time ultrasound of the abdomen with image documentation. COMPARISON: No relevant prior studies available. FINDINGS: Pleural spaces: Bilateral pleural effusions. Liver: Normal. No mass. Gallbladder: Gallbladder wall is thickened, measuring 7.2 mm. There is no sonographic Solorzano sign. No gallstones are identified. Biliary ducts: Normal. No stones. No dilation. Pancreas: Pancreas is not well visualized due to superimposed bowel gas. Right kidney: Normal. No mass. No hydronephrosis. Left kidney: Left kidney not visualized. Spleen: Normal. No splenomegaly. Intraperitoneal space: Small amount of ascites. Aorta: Normal. No aneurysm. Inferior vena cava: Normal. Procedure Note Alina Cedeno MD - 01/01/2022 Patient: Avel Faye Sex#: M #: 1950 Sera#: [id number] Location: [address] Ordering Provider: AGNES UNGER Procedure Requested: [id number] US ABDOMEN COMPLETE Reason for Exam: LVAD Evaluation Exam Ordered: 01/01/2022 0959 Begin exam date/time: 01/01/20221401 Exam Date/Time: 01/01/20221401 PROCEDURE INFORMATION: Exam: US Abdomen Complete Exam date and time: 01/01/2022 2:02 PM Age: 71 years old Clinical indication: Screening exam; Other: Lvad eval; Additional info: Lvad evaluation TECHNIQUE: Imaging protocol: Real-time ultrasound of the abdomen with image documentation. COMPARISON: No relevant prior studies available. FINDINGS: Pleural spaces: Bilateral pleural effusions. Liver: Normal. No mass. Gallbladder: Gallbladder wall is thickened, measuring 7.2 mm. There is no sonographic Solorzano sign. No gallstones are identified. Biliary ducts: Normal. No stones. No dilation. Pancreas: Pancreas is not well visualized due to superimposed bowel gas. Right kidney: Normal. No mass. No hydronephrosis. Left kidney: Left kidney not visualized. Spleen: Normal. No splenomegaly. Intraperitoneal space: Small amount of ascites. Aorta: Normal. No aneurysm. Inferior vena cava: Normal. IMPRESSION Gallbladder wall thickening with no sonographic Solorzano sign and no gallstones identified. Cannot exclude acalculous cholecystitis. READING SITE: [facility] THIS DOCUMENT HAS BEEN ELECTRONICALLY SIGNED BY ALINA CEDENO MD Agnes Unger MD IMG US ORDERABLES * (ABNORMAL) APTT - Heparin Infusion Monitoring (01/01/2022 2:53 PM CDT) Pathologist Signature Component Value Ref Test Method Analysis Performed A t Range Time APTT 114 (H) - 01/01/2022 [facility] Sec 4:01 PM CDT Anatomical Location / Laterality Collection Method / Volume Smitha ection Time Received Time Specimen (Source) Venipuncture / Unknown 01/01/2022 2:53 PM CDT 0 01/01/2022 2:57 PM CDT Blood (Venous) Agnes Unger MD LAB BLOOD ORDERABLES City/State/ZIP Code Phone Number Performing [place] [address] * (ABNORMAL) Clotting Screen (01/01/2022 2:50 PM CDT) Pathologist Signature Component Value Ref Test Method Analysis Performed A t Range Time Protime 16.7 (H) 11.4 - 01/01/2022 [facility] 15.0 Sec 4:02 PM CDT INR 1.4 (H) 0.8 - 01/01/2022 [facility] 1.2 4:02 PM CDT APTT 121 (H) 22 - 34 01/01/2022 [facility] Sec 4:02 PM CDT Anatomical Location / Laterality Collection Method / Volume Smitha ection Time Received Time Specimen (Source) Venipuncture / Unknown 01/01/2022 2:50 PM CDT 0 01/01/2022 2:57 PM CDT Blood (Venous) Agnes Unger MD LAB BLOOD ORDERABLES [facility]/State/ZIP Code Phone Number Performing [place] [address] * Antibody Screen (01/01/2022 2:50 PM CDT) Pathologist Signature Component Value Ref Test Method Analysis Performed A t Range Time Antibody Screen Negative 01/01/2022 [facility] 2:58 PM [facility] BLOOD BANK CDT Anatomical Location / Laterality Collection Method / Volume Smitha ection Time Received Time Specimen (Source) Venipuncture / Unknown 01/01/2022 2:50 PM CDT 0 01/01/2022 2:57 PM CDT Blood (Venous) Ian Owens MD BLOOD BANK TEST ORDERABLES [facility]/ZIP Code Phone Number Performing [place] [address] BLOOD BANK * Haptoglobin (01/01/2022 2:50 PM CDT) Pathologist Signature Component Value Ref Test Method Analysis Performed A t Range Time Haptoglobin 179 34 - 355 01/04/2022 [facility] mg/dL 1:06 PM CDT Anatomical Location / Laterality Collection Method / Volume Smitha ection Time Received Time Specimen (Source) Venipuncture / Unknown 01/01/2022 2:50 PM CDT 0 01/01/2022 2:57 PM CDT Blood (Venous) Narrative [facility] - 01/04/2022 1:06 PM CDT Performed at: [address] [id number] [employer] [employer] Driver: Cesar Grant MD, Phone: [phone] Agnes Unger MD LAB BLOOD ORDERABLES [facility]/State/ZIP Code Phone Number Performing [place] [address] [facility] [address] * ABORH Type (01/01/2022 2:50 PM CDT) Pathologist Signature Component Value Ref Test Method Analysis Performed A t Range Time ABORH Type B Positive 01/01/2022 [facility] 2:58 PM [facility] BLOOD BANK CDT Anatomical Location / Laterality Collection Method / Volume Smitha ection Time Received Time Specimen (Source) Venipuncture / Unknown 01/01/2022 2:50 PM CDT 0 01/01/2022 2:57 PM CDT Blood (Venous) Ian Owens MD BLOOD BANK TEST ORDERABLES City/State/ZIP Code Phone Number Performing [place] [address] BLOOD BANK * XR Chest post line drain or airway placement (01/01/2022 12:26 PM CDT) Modality Anatomical Region Laterality Computed Radiography Chest Anatomical Location / Laterality Collection Method / Volume Smitha ection Time Received Time Specimen (Source) 01/01/2022 12:19 PM CDT Impressions 01/01/2022 12:53 PM CDT 1. Support apparatus as described. No pneumothorax. 2. Similar to slightly worsening of pulm onary edema and dense basilar atelectasis. Superimposed pneumonia is not excluded. 3. Increased or redistributed right-side d layering pleural effusion with intrafissural fluid. Similar small left pleural effusion. READING SITE: [facility] 01/01/2022 12:53 PM CDT Patient: AVEL FAYE Sex#: M #: 1950 Sera#: [id number] Location: [place] [address] Ordering Provider: AGNES UNGER Procedure Requested: [id number] XR CHEST POST LINE DRAIN OR AIRWAY PLACEMENT Reason for Exam: To rule out a pneumothorax and confirm placement Exam Ordered: 01/01/2022 1159 Begin exam date/time: 01/01/2022 1219 Exam Date/Time: 01/01/2022 1226 XR CHEST POST LINE DRAIN OR AIRWAY PLACEMENT INDICATION: To rule out a pneumothorax and confirm placement. COMPARISON STUDY: 12/31/2021. FINDINGS: Mild rotation to the left. Exclusion of the inferior most lung bases and costophrenic angles. Life Support Devices: Interval placement of right IJ pulmonary artery catheter with tip at the proximal aspect of the right upper lobe pulmonary artery. Lungs: Low lung volume with similar with slightly increased perihilar and basilar heterogeneous opacities, with dense left greater than right basilar airspace disease and volume loss. Indistinct vasculature. Pleura: Slightly increased or redistributed right-sided layering pleural effusion with intervertebral fluid, and similar small left pleural effusion. Heart and Mediastinum: Stable cardiomediastinal silhouette and great vessels. Bones and Soft Tissues: Stable regional skeleton and soft tissues. Procedure Note Duane Morton MD - 01/01/2022 Patient: AVEL FAYE Sex#: M #: 1950 Sera#: [id number] Location: [address] ICU [id number] Ordering Provider: AGNES UNGER Procedure Requested: [id number] XR CHEST POST LINE DRAIN OR AIRWAY PLACEMENT Reason for Exam: To rule out a pneumothorax and confirm placement Exam Ordered: 01/01/2022 1159 Begin exam date/time: 01/01/2022 1219 Exam Date/Time: 01/01/2022 1226 XR CHEST POST LINE DRAIN OR AIRWAY PLACEMENT INDICATION: To rule out a pneumothorax and confirm placement. COMPARISON STUDY: 12/31/2021. FINDINGS: Mild rotation to the left. Exclusion of the inferior most lung bases and costophrenic angles. Life Support Devices: Interval placement of right IJ pulmonary artery catheter with tip at the proximal aspect of the right upper lobe pulmonary artery. Lungs: Low lung volume with similar with slightly increased perihilar and basilar heterogeneous opacities, with dense left greater than right basilar airspace disease and volume loss. Indistinct vasculature. Pleura: Slightly increased or redistributed right-sided layering pleural effusion with intervertebral fluid, and similar small left pleural effusion. Heart and Mediastinum: Stable cardiomediastinal silhouette and great vessels. Bones and Soft Tissues: Stable regional skeleton and soft tissues. IMPRESSION 1. Support apparatus as described. No pn eumothorax. 2. Similar to slightly worsening of pulm onary edema and dense basilar atelectasis. Superimposed pneumonia is not excluded. 3. Increased or redistributed right-side d layering pleural effusion with intrafissural fluid. Similar small left pleural effusion. READING SITE: [facility] Agnes Unger MD [facility] * CATHETERIZATION, HEART, RIGHT (01/01/2022 12:04 PM CDT) Modality Anatomical Region Laterality Other Anatomical Location / Laterality Collection Method / Volume Smitha ection Time Received Time Specimen (Source) Narrative 01/01/2022 1:05 PM CDT PROCEDURE DETAILS: The patient was prepped and draped in the usual sterile fashion. 2% lidocaine was given for local anesthesia during the procedure. Hemodynamic assessment was performed with a balloon-tipped catheter floated into the pulmonary artery under fluoroscopic guidance. PRESSURES: BP: 137 mmHg / 69 mmHg HR: 83 bpm Hgb: 11.6 g/dL RA: 16 mmHg RV: 45 mmHg / 14 mmHg PA: 55 mmHg / 30 mmHg (38 mmHg) PCWP: 25 mmHg Baldev = 1.56 Art Sat: 99 % PA Sat: 66.2 % Michaela CO: 5.97 L/min Michaela CI: 2.42 L/min/m2 SVR: 965.05 dsc-5 PVR: 2.18 HILL PROCEDURAL CONCLUSION: -Significantly elevated right and left-s ided filling pressures. -Adequate cardiac output on dobutamine 5 mcg/kg/min. -PA catheter sutured into place -Transfer to CCU for decongestion, optim ization of GDMT, and attempted weaning of inotropic support. Procedure Data: Estimated Blood Loss: No significant blood loss Additional procedural details available in the full procedure log. Access Site The right internal jugular vein was accessed via COOK MICROPUNCTURE 4FR 10CM then upsized to SHEATH FAST-CATH 8FR 12CM using fluoroscopy guidance and ultrasound guidance. PA Catheter Details 1 A (CATHETER PENTALUMEN RA EXTRA PORT HEPARIN CTD LF 8FR 5-LUMEN 110CM [id number]) catheter was inserted and advanced to the pulmonary artery wedge position under fluoroscopic guidance. Measurements of pressures, aortic (via pulse ox) and venous (via blood draw) oxygen saturations, and cardiac output (by Michaela using assumed VO2) were obtained. PA Catheter Details 2 A (CATHETER PENTALUMEN RA EXTRA PORT HEPARIN CTD LF 8FR 5-LUMEN 110CM [id number]). The catheter remained in place throughout the procedure for continuous monitoring of pulmonary artery pressure and was left in place following the procedure. 62cm Estimated Blood Loss During the procedure the estimated blood loss was minimal. Darling Caceres MD CV CARDIAC CATH ORDERABLES * ECHO COMPLETE W DOPPLER AND COLOR FLOW W CONTRAST (01/01/2022 10:05 AM CDT) Pathologist Signature Component Value Ref Test Method Analysis Performed A t Range Time Ejection Fraction 24 % PROSOLV Modality Anatomical Region Laterality Ultrasound Chest Anatomical Location / Laterality Collection Method / Volume Smitha ection Time Received Time Specimen (Source) 01/01/2022 9:06 AM CDT Impressions 01/01/2022 11:28 AM CDT 1. Severe left ventricular dilatation. LVEDVI= 130 ml/m2. 2. Severely reduced left ventricular systolic function, with a calculated ejection fraction of 24%. 3. Global hypokinesis with some regional variability. 4. Severe right ventricular dilatation with severely reduced systolic function. 5. Mild aortic stenosis. 6. Mild MR. Vidq-mp-ccgiuugu TR. 7. Estimated central venous and PA pressures are elevated. No previous study available for comparison. Dr. Justin Powers MD (Electronically Signed) Final Date: 01 January 2022 11:27 Narrative 01/01/2022 11:28 AM CDT ECHOCARDIOGRAM REPORT [facility] Name: AVEL FAYE Date: 01/01/2022 09:06 Chart #: [id number] : 1950 Location: [facility] IP Sono: radha Age: 71 Gender: M Referring: DARLING CACERES Room #: [id number] Fellow: Indication:cardiogenic shock Procedure: ECHO COMPLETE W DOPPLER AND COLOR FLOW W CONTRAST BP: 114 / 69 HR: 77 Ht: 74 Wt: 278 BSA 2.6 : 2D ECHO MEASUREMENTS LV Diastolic Diameter Bas 6.1 cm LVPW Diastolic Thickness 1.1 cm LV Systolic Diameter Base 4.2 cm LVOT Diameter 2.3 cm LA Systolic Diameter LX 3.9 cm Aorta at Sinuses Diameter 3.2 cm IVS Diastolic Thickness 1.3 cm Ascending Aorta Diameter 3.1 cm AORTIC VALVE DOPPLER AV Peak Velocity 217 cm/s LVOT AV Morales Ratio 0.36 AV Peak Gradient 18.8 mmHg TRICUSPID VALVE DOPPLER RV Systolic Pressure 53.9 mmHg WALL SEGMENT ANALYSIS: ROUTINE LVSI : 2 %FM : 0 LAD : 2 LCX : 2 RCA : 2 Hypokinetic - Mid Anterior Septum, Basal Anterior Septum, Basal Posterior, Mid Posterior, Basal Septum, Mid Septum, Apical Septum, Apical Lateral, Mid Lateral, Basal Lateral, Basal Inferior, Mid Inferior, Apical Inferior, Apical Anterior, Mid Anterior, Basal Anterior, [place] FINDINGS LV Ejection Fraction: 24 Frequent ectopy. Definity was injected to enhance left ventricular endocardial border definition. Severely reduced left ventricular systolic function, with a calculated ejection fraction of 24%. Mild concentric left ventricular hypertrophy. Global hypokinesis with some regional variability. Severe left ventricular dilatation. LVEDVI= 130 ml/m2. Severe right ventricular dilatation with severely reduced systolic function. Mild right and left atrial dilatation. LA volume index= 39 ml/m2. Unable to assess diastolic function due to underlying rhythm. Calcified aortic valve with mild stenosis (mean gradient = 10 mmHg, WENDI 1.5 cm2) and mild regurgitation. LVOTd = 2.3 cm, LVOT VTI = 16 cm, AV VTI = 45 cm, WENDI = 1.5 cm2. Mitral annular calcification extending to leaflets with mild regurgitation. Normal pulmonic valve with trivial regurgitation. Normal tricuspid valve with mild to moderate regurgitation. Estimated PA pressure = 54 mmHg assuming RAP of 15 mmHg. Trivial posterior pericardial effusion. IVC is dilated and not responsive to inspiration indicating markedly elevated RA pressure. Normal dimensions of the ascending aorta. No obvious intracardiac masses or thrombi. Procedure Note Justin Powers MD - 01/01/2022 ECHOCARDIOGRAM REPORT [facility] Name: AVEL FAYE Date: 01/01/2022 09:06 Chart #: [id number] : 1950 Location: [facility] Sono: radha Age: 71 Gender: M Referring: DARLING CACERES Room #: [id number] Fellow: Indication:cardiogenic shock Procedure: ECHO COMPLETE W DOPPLER AND COLOR FLOW W CONTRAST BP: 114 / 69 HR: 77 Ht: 74 Wt: 278 BSA 2.6 : 2D ECHO MEASUREMENTS LV Diastolic Diameter Bas 6.1 cm LVPW Diastolic Thickness 1.1 cm LV Systolic Diameter Base 4.2 cm LVOT Diameter 2.3 cm LA Systolic Diameter LX 3.9 cm Aorta at Sinuses Diameter 3.2 cm IVS Diastolic Thickness 1.3 cm Ascending Aorta Diameter 3.1 cm AORTIC VALVE DOPPLER AV Peak Velocity 217 cm/s LVOT AV Morales Ratio 0.36 AV Peak Gradient 18.8 mmHg TRICUSPID VALVE DOPPLER RV Systolic Pressure 53.9 mmHg WALL SEGMENT ANALYSIS: ROUTINE LVSI : 2 %FM : 0 LAD : 2 LCX : 2 RCA : 2 Hypokinetic - Mid Anterior Septum, Basal Anterior Septum, Basal Posterior, Mid Posterior, Basal Septum, Mid Septum, Apical Septum, Apical Lateral, Mid Lateral, Basal Lateral, Basal Inferior, Mid Inferior, Apical Inferior, Apical Anterior, Mid Anterior, Basal Anterior, [place] FINDINGS LV Ejection Fraction: 24 Frequent ectopy. Definity was injected to enhance left ventricular endocardial border definition. Severely reduced left ventricular systolic function, with a calculated ejection fraction of 24%. Mild concentric left ventricular hypertrophy. Global hypokinesis with some regional variability. Severe left ventricular dilatation. LVEDVI= 130 ml/m2. Severe right ventricular dilatation with severely reduced systolic function. Mild right and left atrial dilatation. LA volume index= 39 ml/m2. Unable to assess diastolic function due to underlying rhythm. Calcified aortic valve with mild stenosis (mean gradient = 10 mmHg, WENDI 1.5 cm2) and mild regurgitation. LVOTd = 2.3 cm, LVOT VTI = 16 cm, AV VTI = 45 cm, WENDI = 1.5 cm2. Mitral annular calcification extending to leaflets with mild regurgitation. Normal pulmonic valve with trivial regurgitation. Normal tricuspid valve with mild to moderate regurgitation. Estimated PA pressure = 54 mmHg assuming RAP of 15 mmHg. Trivial posterior pericardial effusion. IVC is dilated and not responsive to inspiration indicating markedly elevated RA pressure. Normal dimensions of the ascending aorta. No obvious intracardiac masses or thrombi. IMPRESSION 1. Severe left ventricular dilatation. LVEDVI= 130 ml/m2. 2. Severely reduced left ventricular systolic function, with a calculated ejection fraction of 24%. 3. Global hypokinesis with some regional variability. 4. Severe right ventricular dilatation with severely reduced systolic function. 5. Mild aortic stenosis. 6. Mild MR. Xkwe-is-wqyltmmd TR. 7. Estimated central venous and PA pressures are elevated. No previous study available for comparison. Dr. Justin Powers MD (Electronically Signed) Final Date: 01 January 2022 11:27 Darling Caceres MD CV ECHO ORDERABLES * Fibrinogen Assay (01/01/2022 2:51 AM CDT) Pathologist Signature Component Value Ref Test Method Analysis Performed A t Range Time Fibrinogen Assay 289 146 - 01/01/2022 [facility] 390 11:00 AM mg/dL CDT Anatomical Location / Laterality Collection Method / Volume Smitha ection Time Received Time Specimen (Source) Venipuncture / Unknown 01/01/2022 2:51 AM CDT 0 01/01/2022 3:20 AM CDT Blood (Venous) Ian Owens MD LAB BLOOD ORDERABLES City/State/ZIP Code Phone Number Performing [place] [address] * Retype Patient ABORH (01/01/2022 12:25 AM CDT) Pathologist Signature Component Value Ref Test Method Analysis Performed A t Range Time ABORH Type B Positive 01/01/2022 [facility] 3:24 PM [facility] BLOOD BANK CDT Confirm Blood Type Yes 01/01/2022 [facility] 3:24 PM [facility] BLOOD BANK CDT Anatomical Location / Laterality Collection Method / Volume Smitha ection Time Received Time Specimen (Source) Venipuncture / Unknown 01/01/2022 12:25 AM CDT 0 01/01/2022 12:38 AM CDT Blood (Venous) Ina Owens MD BLOOD BANK TEST ORDERABLES City/[facility]/ZIP Code Phone Number Performing [place] [address] BLOOD BANK * (ABNORMAL) Lipid Panel (01/01/2022 12:25 AM CDT) Only the most recent of 2 results within the time period is included. Pathologist Signature Component Value Ref Test Method Analysis Performed A t Range Time Cholesterol 111 100 - 01/01/2022 [facility] 200 1:25 AM mg/dL CDT HDL Cholesterol 34.0 (L) 40.0 - 01/01/2022 [facility] 60.0 1:25 AM mg/dL CDT Comment: Reference range updated 06/29/21 with [facility] conversion to [employer] instrumentation. Non-HDL Cholesterol 77 0 - 130 01/01/2022 [facility] mg/dL 1:25 AM CDT Triglycerides 70 0 - 150 01/01/2022 [facility] mg/dL 1:25 AM CDT LDL Cholesterol 63 0 - 99 01/01/2022 [facility] mg/dL 1:25 AM CDT Cholesterol/HDL 3.3 0.0 - 01/01/2022 [facility] Ratio 4.5 1:25 AM CDT Anatomical Location / Laterality Collection Method / Volume Smitha ection Time Received Time Specimen (Source) Venipuncture / Unknown 01/01/2022 12:25 AM CDT 0 01/01/2022 12:38 AM CDT Blood (Venous) Darling Caceres MD LAB BLOOD ORDERABLES [facility]/ZIP Code Phone Number Performing [place] [address] * (ABNORMAL) Iron/Transferrin (01/01/2022 12:25 AM CDT) Only the most recent of 2 results within the time period is included. Pathologist Signature Component Value Ref Test Method Analysis Performed A t Range Time Iron 28 (L) 65 - 175 01/01/2022 [facility] ug/dL 1:25 AM CDT Transferrin 232 215 - 01/01/2022 [facility] 365 1:25 AM mg/dL CDT Total Iron-Binding 278 250 - 01/01/2022 [facility] Capacity 425 1:25 AM ug/dL CDT Iron/Transferrin % 10 (L) 15 - 50 01/01/2022 [facility] Saturation % 1:25 AM CDT Anatomical Location / Laterality Collection Method / Volume Smitha ection Time Received Time Specimen (Source) Venipuncture / Unknown 01/01/2022 12:25 AM CDT 0 01/01/2022 12:38 AM CDT Blood (Venous) Darling Caceres MD LAB BLOOD ORDERABLES [facility]/ZIP Code Phone Number Performing [place] [address] [address] * (ABNORMAL) Hemoglobin A1C (01/01/2022 12:25 AM CDT) Only the most recent of 2 results within the time period is included. Pathologist Signature Component Value Ref Test Method Analysis Performed A t Range Time Hemoglobin A1C 6.9 (H) 4.0 - 01/01/2022 [facility] 5.6 % 12:55 PM CDT Comment: Non-diabetic : 4.0-5.6% Prediabetes : 5.7-6.4% Diabetes : >= 6.5% Anatomical Location / Laterality Collection Method / Volume Smitha ection Time Received Time Specimen (Source) Venipuncture / Unknown 01/01/2022 12:25 AM CDT 0 01/01/2022 12:38 AM CDT Blood (Venous) Ian Owens MD LAB BLOOD ORDERABLES [facility]/ZIP Code Phone Number Performing [place] [address] [address] * Ferritin (01/01/2022 12:25 AM CDT) Pathologist Signature Component Value Ref Test Method Analysis Performed A t Range Time Ferritin 236.0 10.5 - 01/01/2022 [facility] 307.3 1:25 AM ng/mL CDT Anatomical Location / Laterality Collection Method / Volume Smitha ection Time Received Time Specimen (Source) Venipuncture / Unknown 01/01/2022 12:25 AM CDT 0 01/01/2022 12:38 AM CDT Blood (Venous) Narrative [facility] - 01/01/2022 1:25 AM CDT Reference range updated 06/29/21 with [facility] conversion to [employer] instrumentation. Darling Caceres MD LAB BLOOD ORDERABLES [facility]/ZIP Code Phone Number Performing Address Organization [place], [place] [id number] [place] [address] [address] * (ABNORMAL) Digoxin (01/01/2022 12:25 AM CDT) Pathologist Signature Component Value Ref Test Method Analysis Performed A t Range Time Digoxin 2.3 (H) 0.8 - 01/01/2022 [facility] 2.0 1:25 AM ng/mL CDT Anatomical Location / Laterality Collection Method / Volume Smitha ection Time Received Time Specimen (Source) Venipuncture / Unknown 01/01/2022 12:25 AM CDT 0 01/01/2022 12:38 AM CDT Blood (Venous) Darling Caceres MD LAB BLOOD ORDERABLES [facility]/ZIP Code Phone Number Performing Address Organization [place], [place] [id number] [place] [address] * BENZODIAZEPINES CONFIRMATION, U (12/31/2021 11:30 PM CDT) Pathologist Signature Component Value Ref Test Method Analysis Performed A t Range Time Alprazolam by Negative Cutoff: 01/06/2022 [facility] LC-MS/MS 10 ng/mL 12:25 PM LABORATORIES CDT Alpha-Hydroxyalprazo Negative Cutoff: 01/06/2022 [facility] krishnan by LC-MS/MS 10 ng/mL 12:25 PM LABORATORIES CDT Chlordiazepoxide by Negative Cutoff: 01/06/2022 [facility] LC-[facility]MS 10 ng/mL 12:25 PM LABORATORIES CDT Clonazepam by Negative Cutoff: 01/06/2022 [facility] LC-MS/MS 10 ng/mL 12:25 PM LABORATORIES CDT 7-aminoclonazepam by Negative Cutoff: 01/06/2022 [facility] LC-MS/MS 10 ng/mL 12:25 PM LABORATORIES CDT Diazepam by LC-MS/MS Negative Cutoff: 01/06/2022 [facility] 10 ng/mL 12:25 PM LABORATORIES CDT Nordiazepam by Negative Cutoff: 01/06/2022 [facility] LC-MS/MS 10 ng/mL 12:25 PM LABORATORIES CDT Midazolam by Negative Cutoff: 01/06/2022 [facility] LC-MS/MS 10 ng/mL 12:25 PM LABORATORIES CDT Alpha-Hydroxy Negative Cutoff: 01/06/2022 [facility] Midazolam by 10 ng/mL 12:25 PM LABORATORIES LC-MS/MS CDT Oxazepam by LC-MS/MS 251 Cutoff: 01/06/2022 [facility] 10 ng/mL 12:25 PM LABORATORIES CDT Temazepam by 3670 Cutoff: 01/06/2022 [facility] LC-MS/MS 10 ng/mL 12:25 PM LABORATORIES CDT Clobazam by LC-MS/MS Negative Cutoff: 01/06/2022 [facility] 10 ng/mL 12:25 PM LABORATORIES CDT N-Desmethylclobazam See Below Cutoff: 01/06/2022 [facility] by LC-MS/MS 10 ng/mL 12:25 PM LABORATORIES CDT Comment: Unknown interfering substance present; unable to obtain results. Flunitrazepam by Negative Cutoff: 01/06/2022 [facility] LC-MS/MS 10 ng/mL 12:25 PM LABORATORIES CDT 7-aminoflunitrazepam Negative Cutoff: 01/06/2022 [facility] by LC-MS/MS 10 ng/mL 12:25 PM LABORATORIES CDT Flurazepam by Negative Cutoff: 01/06/2022 [facility] LC-MS/MS 10 ng/mL 12:25 PM LABORATORIES CDT 2-Hydroxy Ethyl Negative Cutoff: 01/06/2022 [facility] Flurazepam by 10 ng/mL 12:25 PM LABORATORIES LC-MS/MS CDT Lorazepam by Negative Cutoff: 01/06/2022 [facility] LC-MS/MS 10 ng/mL 12:25 PM LABORATORIES CDT Prazepam by LC-MS/MS Negative Cutoff: 01/06/2022 [facility] 10 ng/mL 12:25 PM LABORATORIES CDT Triazolam by Negative Cutoff: 01/06/2022 [facility] LC-MS/MS 10 ng/mL 12:25 PM LABORATORIES CDT Alpha-Hydroxy Negative Cutoff: 01/06/2022 [facility] Triazolam by 10 ng/mL 12:25 PM LABORATORIES LC-MS/MS CDT Zolpidem by LC-MS/MS Negative Cutoff: 01/06/2022 [facility] 10 ng/mL 12:25 PM LABORATORIES CDT Zolpidem Negative Cutoff: 01/06/2022 [facility] Vursdc-0-Stebkzbrth 10 ng/mL 12:25 PM LABORATOR IES acid by LC-MS/MS CDT Benzodiazepines Positive. 01/06/2022 [facility] Interpretation 12:25 PM LABORATORIES CDT Comment: A DDITIONAL INFORMATION--------- This report is intended for use in clinical monitoring and management of patients. It is not intended for use in employment-related testing. This test was developed and its performance characteristics determined by [facility] in a manner consistent with CLIA requirements. This test has not been cleared or approved by the U.S. Food and Drug Administration. Test Performed by: [facility] [address] [place] [address] Flatbed Truck Driver: Albert Signh M.D. Ph.D.; CLIA# [id number] Anatomical Location / Laterality Collection Method / Volume Smitha ection Time Received Time Specimen (Source) Non-Blood Collection / Unknown 12/31/2021 11:30 PM CDT 01/01/2022 10:35 AM CDT Urine (Urine Clean Catch) Ian Owens MD URINE ORDERABLES City/State/ZIP Code Phone Number Performing Address Organization [place], [place] [id number] [place] [address] * (ABNORMAL) COVID PCR - Rapid (12/31/2021 11:30 PM CDT) Pathologist Signature Component Value Ref Test Method Analysis Performed A t Range Time SARS COV2 PCR Positive (A) Negative 01/01/2022 [facility] , 12:36 AM Invalid CDT Comment: This test has been authorized by the FDA under an Emergency Use Authorization (EUA) for use by authorized laboratories. Anatomical Location / Laterality Collection Method / Volume Smitha ection Time Received Time Specimen (Source) 12/31/2021 11:30 PM CDT 01/01/20 11:50 PM CDT NASOPHARYNGEAL SWAB Darling Caceres MD MICROBIOLOGY - GENERAL [facility]/State/ZIP Code Phone Number Performing [place] [address] [facility] [address] * (ABNORMAL) Toxicology Screening Panel (12/31/2021 11:30 PM CDT) Pathologist Signature Component Value Ref Test Method Analysis Performed A t Range Time Tetrahydrocannabinol Not Detected Not 01/01/2022 [facility] Urine Detected 10:35 AM CDT Phencyclidine Urine Not Detected Not 01/01/2022 [facility] Detected 10:35 AM CDT Cocaine Urine Not Detected Not 01/01/2022 [facility] Detected 10:35 AM CDT Methamphetamines Not Detected Not 01/01/2022 [facility] Urine Detected 10:35 AM CDT Opiates Urine Not Detected Not 01/01/2022 [facility] Detected 10:35 AM CDT Amphetamines Urine Not Detected Not 01/01/2022 [facility] Detected 10:35 AM CDT Benzodiazepines Present (A) Not 01/01/2022 [facility] Urine Detected 10:35 AM CDT Tricyclic Not Detected Not 01/01/2022 [facility] Antidepressants Detected 10:35 AM CDT Methadone Urine Not Detected Not 01/01/2022 [facility] Detected 10:35 AM CDT Barbiturates Urine Not Detected Not 01/01/2022 [facility] Detected 10:35 AM CDT Oxycodone Urine Not Detected Not 01/01/2022 [facility] Detected 10:35 AM CDT Anatomical Location / Laterality Collection Method / Volume Smitha ection Time Received Time Specimen (Source) Non-Blood Collection / Unknown 12/31/2021 11:30 PM CDT 12/31/2021 11:38 PM CDT Urine (Urine Clean Catch) Narrative [facility] - 01/01/2022 10:35 AM CDT Toxicology cutoff values: Assay Cutoff value Assay Cutoff value Amphetamines 500 ng/mL Methamphetamines 500 ng/mL Barbiturates 200 ng/mL Opiates 100 ng/mL Benzodiazepines 150 ng/mL Oxycodone 100 ng/mL Cocaine 150 ng/mL Phencyclidine 25 ng/mL Methadone 200 ng/mL THC 50 ng/mL Tricyclic Antidepressants 300 ng/mL This drug screen provides presumptive results for medical purposes only. False positive results may occur. Confirmatory results will follow for all positive drugs except tricyclic antidepressants. Ian Owens MD URINE ORDERABLES [facility]/ZIP Code Phone Number Performing Address Organization [place], [place] [id number] [place] [address] * (ABNORMAL) BNP (12/31/2021 8:44 PM CDT) Pathologist Signature Component Value Ref Test Method Analysis Performed A t Range Time BNP 933 (H) 0 - 100 12/31/2021 [facility] pg/mL 9:22 PM CDT Anatomical Location / Laterality Collection Method / Volume Smitha ection Time Received Time Specimen (Source) Venipuncture / Unknown 12/31/2021 8:44 PM CDT 0 12/31/2021 8:50 PM CDT Blood (Venous) Narrative [facility] - 12/31/2021 9:22 PM CDT [facility] converted from NTproBNP (Ortho - Vitros 5600) to BNP ([employer]) on June 29, 2021. Darling Caceres MD LAB BLOOD ORDERABLES [facility]/ZIP Code Phone Number Performing Address Organization [place], [place] [id number] [place] [address] Road * HIV AG/JOEY (12/31/2021 8:44 PM CDT) Pathologist Signature Component Value Ref Test Method Analysis Performed A t Range Time HIV AG/JOEY Nonreactive Nonreact 01/01/2022 [facility] sabina 12:00 PM CDT Anatomical Location / Laterality Collection Method / Volume Smitha ection Time Received Time Specimen (Source) Venipuncture / Unknown 12/31/2021 8:44 PM CDT 0 12/31/2021 8:50 PM CDT Blood (Venous) Ian Owens MD LAB BLOOD ORDERABLES [facility]/ZIP Code Phone Number Performing Address Organization [place], [place] [id number] [place] [address] * (ABNORMAL) Uric Acid (12/31/2021 8:44 PM CDT) Pathologist Signature Component Value Ref Test Method Analysis Performed A t Range Time Uric Acid 9.9 (H) 3.7 - 01/01/2022 [facility] 9.2 10:33 AM mg/dL CDT Anatomical Location / Laterality Collection Method / Volume Smitha ection Time Received Time Specimen (Source) Venipuncture / Unknown 12/31/2021 8:44 PM CDT 0 12/31/2021 8:50 PM CDT Blood (Venous) Narrative [facility] - 01/01/2022 10:33 AM CDT Reference range updated 06/29/21 with [facility] conversion to [employer] instrumentation. Ian Owens MD LAB BLOOD ORDERABLES [facility]/ZIP Code Phone Number Performing Address Organization [address] * (ABNORMAL) Thyroid Stimulating Hormone (12/31/2021 8:44 PM CDT) Pathologist Signature Component Value Ref Test Method Analysis Performed A t Range Time Thyroid Stimulating 8.15 (H) 0.55 - 12/31/2021 [facility] Hormone 4.78 9:30 PM uIU/mL CDT Anatomical Location / Laterality Collection Method / Volume Smitha ection Time Received Time Specimen (Source) Venipuncture / Unknown 12/31/2021 8:44 PM CDT 0 12/31/2021 8:50 PM CDT Blood (Venous) Narrative [facility] - 12/31/2021 9:30 PM CDT Reference range updated 06/29/21 with [facility] conversion to [employer] instrumentation. Darling Caceres MD LAB BLOOD ORDERABLES [facility]/ZIP Code Phone Number Performing Address Organization [place], [place] [id number] [place] [address] * (ABNORMAL) T4 Free (12/31/2021 8:44 PM CDT) Only the most recent of 2 results within the time period is included. Pathologist Signature Component Value Ref Test Method Analysis Performed A t Range Time T4 Free 0.80 (L) 0.89 - 01/01/2022 [facility] 1.76 12:00 PM ng/dL CDT Anatomical Location / Laterality Collection Method / Volume Smitha ection Time Received Time Specimen (Source) Venipuncture / Unknown 12/31/2021 8:44 PM CDT 0 12/31/2021 8:50 PM CDT Blood (Venous) Narrative [facility] - 01/01/2022 12:00 PM CDT Reference range updated 06/29/21 with [facility] conversion to [employer] instrumentation. Ian Owens MD LAB BLOOD ORDERABLES [facility]/State/ZIP Code Phone Number Performing [place] [address] * Rapid Plasma Reagin (12/31/2021 8:44 PM CDT) Pathologist Signature Component Value Ref Test Method Analysis Performed A t Range Time RPR Nonreactive Nonreact 01/02/2022 [facility] sabina 6:34 AM CDT Anatomical Location / Laterality Collection Method / Volume Smitha ection Time Received Time Specimen (Source) Venipuncture / Unknown 12/31/2021 8:44 PM CDT 0 12/31/2021 8:50 PM CDT Blood (Venous) Ian Owens MD LAB BLOOD ORDERABLES [facility]/ZIP Code Phone Number Performing Address Organization [place], [place] [id number] [place] [address] * PSA Screen (12/31/2021 8:44 PM CDT) Pathologist Signature Component Value Ref Test Method Analysis Performed A t Range Time PSA Screen 0.05 0.00 - 01/01/2022 [facility] 4.00 12:00 PM ng/mL CDT Anatomical Location / Laterality Collection Method / Volume Smitha ection Time Received Time Specimen (Source) Venipuncture / Unknown 12/31/2021 8:44 PM CDT 0 12/31/2021 8:50 PM CDT Blood (Venous) Narrative [facility] - 01/01/2022 12:00 PM CDT Method for [facility] is [employer]. Ian Owens MD LAB BLOOD ORDERABLES [facility]/ZIP Code Phone Number Performing Address Organization [place], [place] [address] [address] * (ABNORMAL) Prothrombin Time/INR (12/31/2021 8:44 PM CDT) Pathologist Signature Component Value Ref Test Method Analysis Performed A t Range Time Protime 16.2 (H) 11.4 - 12/31/2021 [facility] 15.0 Sec 9:52 PM CDT INR 1.3 (H) 0.8 - 12/31/2021 [facility] 1.2 9:52 PM CDT Anatomical Location / Laterality Collection Method / Volume Smitha ection Time Received Time Specimen (Source) Venipuncture / Unknown 12/31/2021 8:44 PM CDT 0 12/31/2021 8:50 PM CDT Blood (Venous) Darling Caceres MD LAB BLOOD ORDERABLES [facility]/ZIP Code Phone Number Performing Address Organization [place], [place] [id number] [place] [address] * Prealbumin (12/31/2021 8:44 PM CDT) Pathologist Signature Component Value Ref Test Method Analysis Performed A t Range Time Prealbumin 13.2 10.0 - 01/01/2022 [facility]RL 40.0 3:05 PM mg/dL CDT Anatomical Location / Laterality Collection Method / Volume Smitha ection Time Received Time Specimen (Source) Venipuncture / Unknown 12/31/2021 8:44 PM CDT 0 12/31/2021 8:50 PM CDT Blood (Venous) Narrative SLRL - 01/01/2022 3:05 PM CDT Reference range updated 06/29/21 with [facility] conversion to [employer] instrumentation. Ian Owens MD LAB BLOOD ORDERABLES [facility]/ZIP Code Phone Number Performing Address Organization [address] * Magnesium (12/31/2021 8:44 PM CDT) Only the most recent of 2 results within the time period is included. Pathologist Signature Component Value Ref Test Method Analysis Performed A t Range Time Magnesium 1.60 1.60 - 01/01/2022 [facility]RL 2.60 12:00 PM mg/dL CDT Anatomical Location / Laterality Collection Method / Volume Smitha ection Time Received Time Specimen (Source) Venipuncture / Unknown 12/31/2021 8:44 PM CDT 0 12/31/2021 8:50 PM CDT Blood (Venous) Ian Owens MD LAB BLOOD ORDERABLES [facility]/ZIP Code Phone Number Performing Address Organization [place], [place] [id number] [place] [address] * Lactate Venous WB - Reflex STAT (12/31/2021 8:44 PM CDT) Pathologist Signature Component Value Ref Test Method Analysis Performed A t Range Time Lactate Venous 1.2 0.0 - 12/31/2021 SLRL 2.0 9:00 PM mmol/L CDT Anatomical Location / Laterality Collection Method / Volume Simtha ection Time Received Time Specimen (Source) Venipuncture / Unknown 12/31/2021 8:44 PM CDT 0 12/31/2021 8:50 PM CDT Blood (Venous) Darling Caceres MD LAB BLOOD ORDERABLES City/State/ZIP Code Phone Number Performing [place] [address] [facility] [address] * Lactate Dehydrogenase (12/31/2021 8:44 PM CDT) Pathologist Signature Component Value Ref Test Method Analysis Performed A t Range Time Lactate 165 120 - 01/01/2022 [facility]RL Dehydrogenase 246 U/L 12:00 PM CDT Anatomical Location / Laterality Collection Method / Volume Smitha ection Time Received Time Specimen (Source) Venipuncture / Unknown 12/31/2021 8:44 PM CDT 0 12/31/2021 8:50 PM CDT Blood (Venous) Narrative SLRL - 01/01/2022 12:00 PM CDT Reference range updated 06/29/21 with [facility] conversion to [employer] instrumentation. Ian Owens MD LAB BLOOD ORDERABLES City/State/ZIP Code Phone Number Performing [place] [address] [facility] [address] * (ABNORMAL) Creatinine (Serum) (12/31/2021 8:44 PM CDT) Pathologist Signature Component Value Ref Test Method Analysis Performed A t Range Time Creatinine 1.40 (H) 0.70 - 01/01/2022 [facility] 1.30 12:00 PM mg/dL CDT eGFR Female AA 44.8 (L) 60.0 - 01/01/2022 [facility]RL 200.0 12:00 PM mL/min/1 CDT .73m*2 eGFR Female Non-AA 37.0 (L) 60.0 - 01/01/2022 [facility]RL 200.0 12:00 PM mL/min/1 CDT .73m*2 eGFR Male AA 60.4 60.0 - 01/01/2022 [facility]RL 200.0 12:00 PM mL/min/1 CDT .73m*2 eGFR Male Non-AA 49.8 (L) 60.0 - 01/01/2022 [facility]RL 200.0 12:00 PM mL/min/1 CDT .73m*2 Anatomical Location / Laterality Collection Method / Volume Smitha ection Time Received Time Specimen (Source) Venipuncture / Unknown 12/31/2021 8:44 PM CDT 0 12/31/2021 8:50 PM CDT Blood (Venous) Ian Owens MD LAB BLOOD ORDERABLES [facility]/ZIP Code Phone Number Performing [place] [address] * Acute Hepatitis Panel (12/31/2021 8:44 PM CDT) Pathologist Signature Component Value Ref Test Method Analysis Performed A t Range Time Hepatitis A Ab IgM Nonreactive Nonreact 01/01/2022 [facility]RL sabina 12:00 PM CDT Hepatitis B Core Ab Nonreactive Nonreact 01/01/2022 [facility] IgM sabina, 12:00 PM Equivoca CDT l Hepatitis B Surface Nonreactive Nonreact 01/01/2022 [facility] Ag sabina 12:00 PM CDT Hepatitis C Ab Nonreactive Nonreact 01/01/2022 [facility] sabina 12:00 PM CDT Anatomical Location / Laterality Collection Method / Volume Smitha ection Time Received Time Specimen (Source) Venipuncture / Unknown 12/31/2021 8:44 PM CDT 0 12/31/2021 8:50 PM CDT Blood (Venous) Ian Owens MD LAB BLOOD ORDERABLES [facility]/ZIP Code Phone Number Performing Address Organization [place], [place] [id number] [place] [address] * XR Chest single view frontal (12/31/2021 7:39 PM CDT) Modality Anatomical Region Laterality Computed Radiography Chest Anatomical Location / Laterality Collection Method / Volume Smitha ection Time Received Time Specimen (Source) 12/31/2021 7:23 PM CDT Impressions 01/01/2022 7:49 AM CDT 1. Right greater than left perihilar and bibasilar heterogeneous opacities, likely representing moderate interstitial pulmonary edema. Superimposed infection or aspiration is not excluded. 2. Small right greater than left pleural effusions. 3. Cardiomegaly. ATTESTATION STATEMENT: The Staff Radiologist has personally reviewed the images and dictated, reviewed, or edited the final report. READING SITE: [facility] 01/01/2022 7:49 AM CDT Patient: AVEL FAYE Sex#: M #: [id number] Sera#: [id number] Location: [address] CTX H515-01 Ordering Provider: DARLING CACERES Procedure Requested: [id number] XR CHEST SINGLE VIEW FRONTAL Reason for Exam: Pulmonary edema Exam Ordered: 12/31/20211911 Begin exam date/time: 12/31/20211922 Exam Date/Time: 12/31/20211938 XR CHEST SINGLE VIEW FRONTAL INDICATION: Pulmonary edema. COMPARISON STUDY: None. FINDINGS: Lungs: Normal lung volume. Perihilar and bibasilar heterogeneous opacities. Indistinct pulmonary vasculature. Pleura: Small right greater than left pleural effusions. No pneumothorax. Heart and Mediastinum: Cardiomegaly. Atherosclerotic thoracic aorta. Skeletal Structures and Soft Tissues: No acute osseous or soft tissue abnormality. Procedure Note Ghassan Burkett MD - 01/01/2022 Patient: AVEL FAYE Sex#: M #: [id number] Sera#: [id number] Location: [address] CTX H515-01 Ordering Provider: DARLING CACERES Procedure Requested: [id number] XR CHEST SINGLE VIEW FRONTAL Reason for Exam: Pulmonary edema Exam Ordered: 12/31/20211911 Begin exam date/time: 12/31/20211922 Exam Date/Time: 12/31/20211938 XR CHEST SINGLE VIEW FRONTAL INDICATION: Pulmonary edema. COMPARISON STUDY: None. FINDINGS: Lungs: Normal lung volume. Perihilar and bibasilar heterogeneous opacities. Indistinct pulmonary vasculature. Pleura: Small right greater than left pleural effusions. No pneumothorax. Heart and Mediastinum: Cardiomegaly. Atherosclerotic thoracic aorta. Skeletal Structures and Soft Tissues: No acute osseous or soft tissue abnormality. IMPRESSION 1. Right greater than left perihilar and bibasilar heterogeneous opacities, likely representing moderate interstitial pulmonary edema. Superimposed infection or aspiration is not excluded. 2. Small right greater than left pleural effusions. 3. Cardiomegaly. ATTESTATION STATEMENT: The Staff Radiologist has personally reviewed the images and dictated, reviewed, or edited the final report. READING SITE: [facility] Darling Caceres MD IMG DIAGNOSTIC IMAGING JENY HONG from Last 3 Months Insurance Type Payer Benefit Subscriber ID Effective Phone Address Plan / Dates Group OTHER [facility] [id number] Effective [address] for all [address] [place] [address] OTHER [facility] [id number] 1998 [employer] Present OF [facility] [address] [address] [place] [address] (Home) [place] [address] Advance Directives For more information, please contact: [phone] Date Inactivated Comments Code Status Date Activated Full Code 01/08/2022 3:20 PM 01/08/2022 3:20 PM Full Code 01/01/2022 11:59 AM 01/01/2022 11:59 AM Full Code 12/31/2021 7:12 PM
--- OUTSIDE RECORDS SUMMARY | 2022-01-09 16:29 | XMS REPORT | Encounter Summary ---
Author Author [facility] Address Unknown Phone Unavailable Care Team Providers Care Charge Account Clerk Name Role Phone PCP Unavailable Reason for Referral * PaceArt (Routine) - Authorized Diagnoses / Procedures Referred By [facility] Cardiac device in situ Procedures ICD Interrogation Jose Carlos Herr MD [address] [place] [address] Cardiology Referral ID Status Reason Start Date Expiration Visits Vi sits Date Requested Authorized [id number] Authorized 01/09/2022 07/12/2022 30 30 * PaceArt (Routine) - Authorized Diagnoses / Procedures Referred By [facility] Cardiac device in situ Procedures Remote ICD Monitoring Jose Carlos Herr MD [address] [place] [address] [facility] Remote Device [place] [address] Cardiology Referral ID Status Reason Start Date Expiration Visits Vi sits Date Requested Authorized [id number] Authorized 01/09/2022 07/12/2022 100 100 Encounter Details Care Team Description Date Type Department Kristel Echeverria MA Cardiac device in situ (Primary Dx) 01/09/2022 Transcribe [facility] [address] [place] [address] Social History Date Tobacco Use Types Packs/Day Years Used Never Smoker Smokeless Tobacco: Never Used Comments Alcohol Use Standard Drinks/Week Not Currently 0 (1 standard drink = 0.6 o z pure alcohol) Sex Assigned at Date Recorded Not on file documented as of this encounter Plan of Treatment Care Team Description Date Type Specialty 01/15/2022 Nurse Only Cardiology Jose Carlos Herr MD [address] [place] [address] 02/09/2022 Telephone Cardiology Vanessa Phillip FNP [address] [place] [address] 04/16/2022 Office Visit Cardiology 04/16/2022 Nurse Only Cardiology Order Schedule Name Type Priority Associated Diag noses 100 Occurrences starting 01/09/2022 unti l 01/04/2042 Remote ICD Monitoring Outpatient Routine Cardiac device in situ Cardiology Orderables 30 Occurrences starting 01/09/2022 until 01/04/2042 ICD Interrogation Outpatient Routine Cardiac paulo ce in situ Cardiology Orderables documented as of this encounter Visit Diagnoses Diagnosis Cardiac device in situ - Primary documented in this encounter
--- OUTSIDE RECORDS SUMMARY | 2022-01-09 16:29 | XMS REPORT | Encounter Summary ---
Author Author [facility] Organization [facility] Address Unknown Phone Unavailable Care Team Providers Care Wink Cutter Operator Name Role Phone PCP Unavailable Encounter Details Care Team Description Date Type Department Tanya Giles RN ICD (implantable cardioverter-defibrilla tor), dual, in situ 01/09/2022 Orders Only [facility] [address] [place] [address] Social History Date Tobacco Use Types Packs/Day Years Used Never Smoker Smokeless Tobacco: Never Used Comments Alcohol Use Standard Drinks/Week Not Currently 0 (1 standard drink = 0.6 o z pure alcohol) Sex Assigned at Date Recorded Not on file documented as of this encounter Plan of Treatment Care Team Description Date Type Specialty 01/15/2022 Nurse Only Cardiology Jose Carlos Herr MD [address] [place] [address] 02/09/2022 Telephone Cardiology Vanessa Phillip FNP [address] [place] [address] 04/16/2022 Office Visit Cardiology 04/16/2022 Nurse Only Cardiology documented as of this encounter Procedures Comments Procedure Name Priority Date/Time Associated Diag nosis INPATIENT SINGLE CHAMBER Routine 01/09/2022 ICD ( implantable PACEMAKER CHECK 9:37 AM CDT cardioverter-defibr illato r), dual, in situ documented in this encounter Results * INPATIENT DUAL CHAMBER ICD CHECK (01/09/2022 9:37 AM CDT) Modality Anatomical Region Laterality Other Impressions 01/09/2022 9:37 AM CDT Device Interrogation Report DATE/TIME: 01/09/22 0900 Indication for interrogation: Next Day Check Post ICD Implant Device Associate Director Regulatory Affairs/Model: Medtronic Evera ICD Battery Voltage: 3.08V Atrial [...] stable. Also reviewed RA lead measurement with [employer] rep. Results communicated to Je Calabrese NP. Patient instructed regarding incision care, arm restrictions, and device follow up. Patient given, and encouraged to read the "Understanding Implantable Devices" instruction folder. The EP Nurses' phone number was marked for patient to contact if further concerns or questions. Tanya Giles, 01/09/2022 9:41 AM Electrophysiology Nurse Jose Carlos Herr MD [facility] ORDERAB LES documented in this encounter Visit Diagnoses Diagnosis ICD (implantable cardioverter-defibrill ator), dual, in situ documented in this encounter
--- OUTSIDE RECORDS SUMMARY | 2022-01-09 16:29 | XMS REPORT | Encounter Summary ---
Author Author [facility] Organization [facility] Address Unknown Phone Unavailable Care Team Providers Care Plate Corrector Name Role Phone PCP Unavailable Reason for Referral * Rehabilitation - Outpatient (Routine) - Pending Review Diagnoses / Procedures Referred By Contact Referred To Conta ct Specialty Diagnoses Chronic systolic heart failure (HCC) Maxine Song MD [address] [facility] [address] [place] [address] Cardiac Rehabilitation Referral ID Status Reason Start Date Expiration Visits Vi sits Date Requested Authorized [id number] Pending Specialty Services 01/01/2022 07/03/2022 1 1 Review Required Reason for Visit * Auth/Cert Diagnoses / Procedures Referred By Contact Referred To Conta ct Specialty Diagnoses Systolic heart failure Cardiogenic shock (HCC) Referral ID Status Reason Start Date Expiration Visits Vi sits Date Requested Authorized [id number] 1 1 Encounter Details Care Team Description Date Type Department Ponce Fonseca MD [address] [facility] [address] [place] [address] Maxine Song MD [address] [facility] [address] [place], [place] [id number] Chronic systolic heart failure (HCC) (Pr imary Dx); Hypothyroidism (acquired); Heart failure with reduced ejection fraction (HCC); NICM (nonischemic cardiomyopathy) (HCC); COVID-19 virus infection; Persistent atrial fibrillation (HCC); Acute kidney injury (HCC); Benign essential hypertension; Mixed hyperlipidemia 12/31/2021 [facility] [facility]/09[facility]2022 [place] [address] Social History Date Tobacco Use Types Packs/Day Years Used Never Smoker Smokeless Tobacco: Never Used Comments Alcohol Use Standard Drinks/Week Not Currently 0 (1 standard drink = 0.6 o z pure alcohol) Sex Assigned at Date Recorded Not on file documented as of this encounter Last Filed Vital Signs Reading Time Taken [...] 12/31/2021 7:35 PM CDT Body Mass Index documented in this encounter Discharge Instructions * Discharge Instructions* Je Torres NP - 01/09/2022 9:55 AM CDT [facility] Patient: Anabella Faye Date: 01/09/2022 DISCHARGE INSTRUCTIONS FOR POST DEVICE PROCEDURE Wound Care: Care tips: Your wound will have a large bandage that you will need to remove 7 days after t he procedure. Once the bandage has been removed there is no need to put a new bandage on at th is point. Under the bandage you will see glue or thin steri-strips that hold the wound edg es together for proper healing (except for a leadless pacemaker). The glue will gradually dissolve and flake off. The strips of tape will typically loosen and f all off in 2-3 weeks. Keep your site clean and dry. Avoid getting the implant site wet for one week af ter the procedure. After one week wash the site with soap and warm water each da y. Do not scratch the area or try to remove scabs. Some patients get a Silver dr essing that is designed to get wet. If you have a Silver dressing you may shower the following day as long as the dressing remains occlusive. Loop recorder pat ients may shower once the dressing has been removed but should avoid submerging/ soaking for one week. All other device patients should avoid hot tubs, bathtubs, swimming pools, or la kes for four weeks after implant. Do not use powders, ointments or lotions at the incision site. Check the implant site for drainage, redness, pain, separation of the wound, or swelling. If you notice any of these or you develop a fever of 100 degrees or hi gher call immediately-Do not wait for your next appointment. Bras, overall straps, purses and seatbelts may seem uncomfortable at first, but this usually improves with time. Activity Guidelines: Temporary Restrictions: After implant of a NEW pacemaker, defibrillator, or NEW lead: - , -No driving f or at least one week (unless otherwise restricted)., -No lifting more than 10 p ounds with the affected arm for six weeks after implant., -Do not raise your ar m on the incision side above shoulder level or stretch your arm behind your back for six weeks after implant., and -No repetitive arm movements above the level of your shoulder for 3 months (example: bowling, golfing, swimming, tennis, karely ght machines) Permanent Restrictions: No arc welding. No chainsaws No shooting a shot gun/rifle on side of the device. Keep cell phone 6 inches away from device. If you carry a cell phone in a chest pocket, do so on the side opposite of the device. When you talk on the cell ph one, use the ear on the opposite side of the device. Do not go through a standard metal detector at Security. Notify personnel yo u have a device and request a manual check. Do not allow the use of a wand over your device. The newer airport scanners that require you to step into a chamber and raise your arms above your head are safe to go through with your de vice. Regardless, you should always let [facility]/security know you have an implanted device and be prepared to show your ID card and they will guide you appropriate ly. Important information: You will be given an information booklet , warranty statement, and a temporary i dentification card at the time of discharge. Please read the information booklet . You should carry the ID card with you at all times. A permanent card will be sent to you from the company that makes your device. You can expect to get it in the mail in 1-2 months. Always let all of your doctors, dentists and medical personnel know that you hav e a device. Some procedures and tests are safe for people with devices, but others are not. For example, some people with a device should not have an MRI scan, but many new types of devices are safe in the MRI machine. Normal house hold appliances like microwave ovens, televisions, radios, toasters , and electric blankets will not interfere with your device. Be aware of the location of anti-theft systems and move through them at a normal pace. Avoid leaning on or standing close to an anti-theft system. Follow up Care: An appointment for 7-10 days after your device was placed has been made for you. At this visit you can expect to see a nurse who will make sure the site is heal ing well and no infection is present. This is also a good time to ask questions about restrictions and remote monitoring. If for some reason an appointment is n ot scheduled, please call our key account coordinator at . Plan on having periodic check-ups of your implanted device. The status of your device will be regularly checked or "interrogated" to provide information regard ing the device function like how often you use the device, the battery life, and any abnormal heart rhythms. For new device patients, one month after device implant you will send a check or remote transmission from home. Remote monitoring is a way for your implan edward device to communicate with your doctor using a small monitor. The monitor wi relessly reads data from your device in the comfort of your home, sends data to a secure website that only your medical team can access, and transfers informati on to your doctor, potentially reducing the number of times you have to travel t o the clinic. This process varies between makes and models of devices. If you inman ve a question about whether a transmission was received, please call [phone] For new device patients, three months after your device is implanted you will un dergo an in office device check along with a clinic visit with a nurse practitio nacho. ferry terminal supervisor, plan to have a check in the office every 1-2 years and a check remote ly from your home every 4 months. Call MD for: Bleeding, pus, or drainage, redness, heat, pain or an increase in swelling at th e site. separation of the wound. fever greater than 100 degrees. frequent jumping, thumping, or jerking sensation in your upper abdominal area. For questions or concerns regarding your device, Call [phone] * Education* Reyna Chinchilla RN - 01/06/2022 10:20 AM CDT [facility] Heart Failure Education Note Name: Anabella Faye Date: 01/06/2022 Time: 5:21 PM Patient seen for Heart Failure education: Chart reviewed and patient interviewed . Met with patient discussed heart failure education. Patient is transferred h [facility] for advanced heart therapy evaluation. Patient admitted for LVAD evaluation . Patient has a history of hypertension, diabetes, COVID, prostate cancer, was admitted at the [place] [facility] status post thoracentesis had some VT on amnio drip patient placed on a dobutamine drip and was transferred to [facility] started Pr imacor therapy. LVAD eval. Patient had cardiogenic shock. Patient has not bee n transition to Entresto. EP assess for possible CANDLE MAKING SUPERVISOR device. Type of Heart Failure: Systolic and diastolic and valvular Last Ejection Fraction: EF is 24% with decreased LV function and dilatation, Manuela bal hypokinesis, RV decreased systolic function, mild MR and moderate TR EF was at 10% now increased to 24%. Support/Self Management: Patient lives at home with supportive . Patient al so has 2 children and supportive grandchildren. Patient tries to be independent . Discussed pacing activities and allowing for rest periods. Discussed complia nce with heart failure practices and helping assist decrease readmission rate in crease quality of life. Scale: Patient scale. He has not been doing daily weights. Patient was recepti ve to doing daily weights and keeping a weight log sheet. Reviewed weight varia nces. Review heart failure zones sheet stressed the importance of notifying MD with early onset of heart failure symptoms and do not delay. Discussed placing heart failure zones sheet in bathroom for daily reminder of early symptoms of he art failure and when to notify MD. Assistance in Home: Ability to follow low salt diet: Review 2000 mg sodium per day or 650 per meal. Patient states he knows how to read labels. Patient also states that his has not been adding salt to his foods. Patient's has an extensive spice ra ck in which she flavors food with no added salt. Gave a low-sodium recipe book. Reviewed foods in her 140 mg or consider low sodium. Discussed lower sodium f ood options and avoidance of canned and processed foods. Patient states he gene rally eats fresh produce and avoids canned. Patient also prefers to eat lean me ats such as turkey, beef, and chicken. Patient's is very supportive in pro viding low-sodium meals. Patient occasionally does eat out did discuss how a lo w-sodium options while eating out. And the avoidance of Canadian and barbecue re staurants to the high sodium load. Patient states he drinks under 64 ounces or 2 L of fluid per day reviewed symptoms of dehydration patient has good understan ding. Prescriptions and medication set up: Patient very weak compliant with medication s. Reviewed amiodarone, digoxin, Coumadin, Jardiance, and Entresto. Discussed the importance of carrying a list of medications with you at all time. Also dis cussed assessing for need for refills weekly. Transportation to appointments: Self The following services where consulted to assist with care: Recommended lifestyle changes and patient's response to recommendations: Patient follow heart failure practices. 1. Daily weights keep weight log sheet. Notify MD with weight variances. 2. Review heart failure zones sheet daily notify MD with early onset of heart f ailure symptoms such as shortness of breath, swelling in extremities, decreased appetite with abdominal bloating, and decreased activity tolerance. Call cardio vascular consultants. 3. Standard 2000 mg of sodium per day or 650 per meal. Read labels avoid canne d and processed foods. 4. Pacing activities and allowing for rest periods. Follow up plan for heart failure management: Education: Patient provided copy of Understanding Heart Failure Booklet that has written in formation on causes of heart failure, symptoms of heart failure and dehydration, weight monitoring, low sodium diet and fluid restrictions, activity guidelines, heart failure medications and tobacco cessation. Reviewed with patient the und erlying pathophysiology and cause of their heart failure. Patient able to verbal ize understanding. Risk Factors for Heart Failure: Reviewed the risk factors for heart failure and patients known risk factors f or heart failure. Discussed individual risk reduction opportunities. Symptoms of Heart Failure and dehydration: Reviewed s/s of heart failure- increase in weight of 2 pounds in a day or 5 poun ds in a week, increased edema or abdominal girth, increased dyspnea, orthopnea o r PND. Reviewed s/s of dehydration including decreased urine output or dark urin e, dizziness or extreme fatigue.Patient able to describe signs and symptoms of heart failure and dehydration as well as the importance of seeking medical help if they occur. Diet and Fluid Restriction: Reviewed reason for 2000 mg sodium diet and 2 liter fluid restriction recommenda tions. Provided information regarding sodium content of foods. Reviewed high so dium foods and how to avoid them or substitute better choices.Reviewed sodium co ntent of restaurant foods and how to limit sodium if eating out. Weight Monitoring: Reviewed with patient importance of daily weights. Instructed on weighing at the same time daily, upon rising, after using the bathroom. Instructed to call their provider if weight increases 2 pounds in one day or 5 pounds in a week. Reviewed that new dry weight will be the weight the morning after dismissal using home scale. Activity: Reviewed exercise and pacing guidelines with patient. Patient able to verbalize understanding of how to pace daily activities and how to begin a walking/exercis e program. Medications: Reviewed purpose and precautions related to heart failure medications. Reviewed to be sure to check discharge medication list closely and follow the discharge i nstructions. Asked patient to keep a current list of their medications with them at all times. Vaccines: Reviewed importance of staying current on pneumonia , influenza and [place] VID 19 vaccines. Reviewed importance of limiting alcohol, avoiding tobacco and illicit drugs. Patient had no further questions. Time spent in education : 45 min Electronically signed by Reyna Chinchilla RN 01/06/2022 5:21 PM * Laurel Pakr RN - 01/05/2022 2:45 PM CDT Met with patient and . Discussed / demonstrated the following: LVAD function, parts, indications Lifestyle limitations of persons with VADs: no submersion in water, no magnet ic field exposure Daily care of equipment & exit site Care post-implant, including frequency of follow up at [facility] and all future hos pitalizations at [facility], follow in device clinic if applicable, and frequent monito ring of INR Caregiver support, emphasizing learning LVAD system, assisting with care, flo ly sterile dressing changes and Caregiver(s) being present at [facility] before & after implant to learn these skills (total of 2 - 3 hours + daily dressing changes while in hospital). Informed family that teaching occurs Mon-Fri during daytime hours. Explained the the VAD device is placed in OHS and that a driveline would conn ect the blood pump, exit his abdomen, and connect to a computer called a air traffic systems technician. The air traffic systems technician must be connected to a power source at all jose es. Pt/caregiver must provide daily or twice weekly sterile dressing changes for the patients lifetime. The VAD is 100% dependent on a power source. The patient must be on lifelong anticoagulation. The patient must have a 24/7 VAD trained caregiver for 8-12 weeks post hospit al d/c. The patient and caregiver must demonstrate VAD competency for device car e, alarm management, and emergency procedures. VAD training will be provided dur ing regular business hours. The patient must avoid strong static discharge. The patient may not have a MRI. The patient may not be submerged in water but may use protective shower bag f or shower. The patient must have frequent f/u in the VAD Clinic post d/c. VAD equipment demonstration provided. Explained that each patient undergoing evaluation for VAD will be discussed a t the weekly selection meeting. The team reviews each case and the result for th e meeting may be that the patient is a VAD candidate, is not a VAD candidate, or that more testing or information is needed prior to the teams decision (accepta nce, declination or deferral). Questions and concerns addressed. Laurel Park RN, BSN LVAD Coordinator documented in this encounter Medications at Time of Discharge Start Date End Date Medication Sig Dispensed Refills 01/09/2022 amiodarone (PACERONE) 100 Take 1 tablet 0 MG tabletIndications: (100 mg prevention of recurrent total) by atrial fibrillation mouth daily. 01/09/2022 apixaban (ELIQUIS) 5 mg Take 1 tablet 60 tablet 2 tabletIndications: (5 mg total) prevent thromboembolism by mouth 2 in chronic atrial (two) times a fibrillation day. 01/09/2022 aspirin 81 MG EC Take 1 tablet 0 tabletIndications: (81 mg total) myocardial infarction by mouth prevention daily. 01/08/2022 cyclobenzaprine Take 1 tablet 0 (FLEXERIL) 10 MG (10 mg total) tabletIndications: muscle by mouth 3 spasm (three) times a day as needed for muscle spasms. 01/08/2022 empagliflozin (JARDIANCE) Take 1 tablet 30 tablet 11 10 mg tabletIndications: (10 mg total) heart failure with by mouth reduced ejection fraction daily. 01/09/2022 eplerenone (INSPRA) 25 MG Take 1 tablet 0 tabletIndications: (25 mg total) chronic heart failure by mouth following myocardial daily. infarction 01/09/2022 fluticasone propionate Use 1 spray 0 (FLONASE) 50 in each mcg/actuation nasal nostril sprayIndications: daily. allergic rhinitis 01/08/2022 furosemide (LASIX) 40 MG Take 1 tablet 0 tabletIndications: edema (40 mg total) by mouth daily. 01/08/2022 levothyroxine (SYNTHROID, Take 1 tablet 0 LEVOTHROID) 25 MCG (25 mcg tabletIndications: total) by hypothyroidism mouth daily. 01/09/2022 metoprolol succinate Take 0.5 0 (TOPROL-XL) 25 MG 24 hr tablets (12.5 tabletIndications: mg total) by chronic heart failure mouth daily. 01/08/2022 sacubitriL-valsartan Take 1 tablet 0 (ENTRESTO) 49-51 mg per by mouth 2 tabletIndications: (two) times a chronic heart failure day. simvastatin (ZOCOR) 10 MG Take 10 mg by 0 tabletIndications: mouth. hyperlipidemia 01/09/2022 tamsulosin (FLOMAX) 0.4 Take 1 0 mg capIndications: benign capsule (0.4 prostatic hyperplasia mg total) by with lower urinary tract mouth daily. sx tramadoL (ULTRAM) 50 mg Take 100 mg 0 tabletIndications: pain by mouth every 6 (six) hours as needed. 01/08/2022 zolpidem (AMBIEN) 10 mg Take 0.5 0 tablet tablets (5 mg total) by mouth nightly as needed for sleep. 10/23/2021 01/09/2022 zolpidem (AMBIEN CR) 12.5 1 tablet at 0 MG CR tablet bedtime as needed documented as of this encounter Progress Notes * Anneliese Avina RN - 01/08/2022 5:10 PM CDT Heart Failure EF 24% (01/01/22). Spoke with patient about the benefits of outpati ent cardiac rehab. Stated he is interested in attending at [facility] in [place], [place]. Given brochure from program. I will fax his contact information and ord er to the program for follow-up with him at home. I explained that his insurance will require that he wait 6 wks after hospitalization before he start exercise in cardiac rehab. * Chris Butts MD - 01/08/2022 12:[address] CHRIS BUTTS M.D., F.A.C.S. PATIENT NAME: Anabella Faye DATE: 01/08/2022 CPI: [id number] AGE: 71 y.o. : 1950 Principal Problem: Acute on chronic systolic heart failure (HCC) Active Problems: Cardiogenic shock (HCC) Benign essential hypertension Mixed hyperlipidemia Primary insomnia Prostate cancer (HCC) COVID-19 virus infection Obesity Type 2 diabetes mellitus (HCC) Acute kidney injury (HCC) Atrial fibrillation (HCC) Hyponatremia VITALS THigh: Temp (24hrs), Av.6 C (97.8 F), Min:36.4 C (97.5 F), Max:36.7 C (98 F) BP 102/52 (BP Location: Right arm, Patient position: Sitting) | Pulse 93 | Tem p 36.6 C (97.9 F) (Oral) | Resp 19 | Ht 1.854 m (6' 1") | Wt 108.3 kg (23 8 lb 12.8 oz) | SpO2 100% | BMI 31.51 kg/m Temp: [36.4 C (97.5 F)-36.7 C (98 F)] 36.6 C (97.9 F) Pulse: [78-103] 93 Resp: [18-20] 19 BP: (94-107)/(52-64) 102/52 I/O last 3 completed shifts: In: 218 [P.O.:218] Out: 2700 [Urine:2700] No intake/output data recorded. LAB RESULTS Most Recent Result within the last 7 days Lab Units 01/08/22 1043 WBC TH/uL 6.88 HEMOGLOBIN g/dL 12.0* HEMATOCRIT % 38* PLATELET COUNT Th/uL 298 Most Recent Result within the last 7 days Lab Units 01/08/22 1043 SODIUM mEq/L 135* POTASSIUM mEq/L 3.6 CARBON DIOXIDE mEq/L 28 BLOOD UREA NITROGEN mg/dL 9 CREATININE mg/dL 1.10 GLUCOSE mg/dL 118* CALCIUM mg/dL 9.4 I/O last 3 completed shifts: In: 218 [P.O.:218] Out: 2700 [Urine:2700] No intake/output data recorded. REVIEW OF SYSTEMS Review of Systems Other: The patient denies any complaint of the following: cough, fainting, visio n or language changes, shortness of breath, chest pain, nausea, vomiting or diar arnaldo, rash, dysuria, seizures, excessive sweating, or bleeding problems. The rem ainder of the 14 systems reviewed in full and negative except for the pertinent positives described in the HPI or past medical history Positive reviews referred to pcp, Gu review per HPI PHYSICAL EXAM Blood pressure 102/52, pulse 93, temperature 36.6 C (97.9 F), temperature so urce Oral, resp. rate 19, height 1.854 m (6' 1"), weight 108.3 kg (238 lb 12.8 o z), SpO2 100 %. GENERAL: Pt is alert and oriented no acute distress. HEENT: Grossly intact LUNGS: Normal respiratory effort ABDOMEN: Soft, nontender, nondistended GENITALIA: normal RECTAL: deferred EXTREMITIES: extremities normal, atraumatic, no cyanosis or edema S.O.A.P Principal Problem: Acute on chronic systolic heart failure (HCC) Active Problems: Cardiogenic shock (HCC) Benign essential hypertension Mixed hyperlipidemia Primary insomnia Prostate cancer (HCC) COVID-19 virus infection Obesity Type 2 diabetes mellitus (HCC) Acute kidney injury (HCC) Atrial fibrillation (HCC) Hyponatremia Urinary retention. Continue Flomax. Keep catheter for 5 to 7 days Pt says dc am Would follow up with [facility] urologist next week for voiding trial Chris Butts 01/08/2022 12:48 PM Kavin, F.A.C.S. * Princess Echeverria LMSW - 01/08/2022 12:37 PM CDT Received call from [facility] consultant, December, stating they are able to acce pt pt for rehab as early as tomorrow. Confirmed in rounds that pt should be able to DC tomorrow following his ICD placement today. CELI confirmed with December that they do not require COVID testing prior to admissio n, but they do require pt be admitted before 3:00 PM. CELI notified HF YODIT. CELI met with pt who remains agreeable to ARU placement tomorrow. He denies any co ncerns with his family transporting him and states his and friend will come get him tomorrow. Notified him of need for family to be to [facility] before 12:00 and he denied any concerns with this. CELI then called pt's and discussed DC plan. She is agreeable to pt's DC joshua rrow and confirmed she and a family friend will come up to for transport. Pt' s requested SW call her in the morning following rounds to confirm DC so th ey can begin their commute to . CELI agreed and will call pt's in the [facility] to finalize plans. Princess Echeverria, 01/08/2022 12:41 PM Ext. [phone] * Ori Colunga - 01/08/2022 10:38 AM CDT Spiritual Care Progress Note Concession Worker engaged in follow-up visit with Anabella. Anabella shared that he is anticip ating discharge tomorrow, and grateful for that. The doctors shared with him th at he would not need an LVAD, for which he said he is "kind of relieved." He me ntioned with a smile: "I need to take better care of myself." Anabella expresses s incerity in this regard, and is grateful for the care and education he has recei alexia at [facility]. He looks forward to fishing, helping his with her small flower garden, and "relaxing in the shade." He also looks forward to connecting with his brother and his love for racing cars. Concession Worker listened reflectively, celeb rating with Anabella his dedication to focus in on his health, and his relief in no t needing an LVAD. Concession Worker offered prayer for continued health and gratitude f or the team at [facility]. Spiritual care remains available as needed/requested. Spiritual Care Assessment Spiritual Care Assessment REFERRAL METHOD: Epic Consult REFERRAL SOURCE: Concession Worker Rounding PRESENT FOR ENCOUNTER: Patient SPIRITUAL DISTRESS: None Identified at this Time DISTRESS: None Identified at this Time WELLBEING INDICATORS: Coping, Grateful, Hopeful, Spiritual Well Being Spiritual Care Interventions/Outcomes Spiritual Care Intervention and Outcomes INTERVENTIONS: Patient Support, Caring Presence, Expression of Feelings/ Beliefs , Life Review, Prayer, Reflective Listening OUTCOMES: Able to cope, Able to Share Feelings/Story, Expressed Gratitude, Sense of Peace, Spiritual Well Being EVALUATION: Outcomes Met DURATION OF CARE (mins): 15 Ori Colunga, 01/08/2022 10:38 AM Voalte Number: [phone] On-Call Pager Number: [phone] * Ponce Fonseca MD - 01/08/2022 6:46 AM CDT Images from the original note were not included. Cardiac Heart Failure Progress Note This hospital encounter may have been performed with modifications including crockett ited or no face to face contact as noted in physical exam below due to concerns about potential exposure to COVID-19 in an effort to minimize patient and provid er risk. Hospital Day: 8 Chief complaint: decompensated heart failure,inability to wean off inotropes Clinical summary: Mr. Faye is a 71-year-old male with hypertension, hyperlipidemia, type 2 diabet es mellitus, COVID-19 infection in 09/2021 (not hospitalized) andprostate cance r s/pprostatectomy.In September 2021, he was infected with COVID-19 but did not require hospitalization.In October 2021, patientsuccessfully underwen t left total knee arthroplasty in October 2021. In the postoperative period, he started to develop worsening shortness of breath and LE edema. Although he lives in [place], [place],he was visiting his son Nolan Workman [facility] and ended up being admitted at the [facility] on 12/03/2021. Echo showed LVEF 10%, right pleural effusion(transudative on thoracentesis)with CLAYTON. He was diuresed and started on dobutamine infusion which improved symptoms and resulte d in 10 pound weight loss. He then developed atrial fibrillationand was star edward on anticoagulation. Due to poor cardiac function,he was transferred to [facility] for ischemic work-up. LHC showed no significant di sease.During this hospitalization he went into sustained VT requiring electr ical cardioversion and initiation of amiodarone infusion and then PO. Attempte d to start afterload reduction with lisinopril and spironolactone which led to A KI and hyperkalemia. Given the continued requirement of inotrope and inability t o optimize GDMT, [facility] Cabezas events during this stay: -01/01:right heart cath,LVAD evaluation CHANGES IN THE PAST 24 HOURS: Clinical: O>I 1100 overnight 15.5 L negative to date Feeling pretty well Walked a little inside and outside room yesterday Breathing better Agreeable to going to rehab post d/c Labs/tests/procedures: Na 135 K 3.6 Cr 1.1 ALT 27 AST 16 TB 1.1 Alk Phos 123 WBC 6.9 H/H 12.0/38 Plt 298 EKG/Telemetry: NSR PVCs ventricular couplets ASSESSMENT & PLAN: Principal Problem: Acute on chronic systolic heart failure (HCC) Active Problems: Cardiogenic shock (HCC) Benign essential hypertension Mixed hyperlipidemia Primary insomnia Prostate cancer (HCC) COVID-19 virus infection Obesity Type 2 diabetes mellitus (HCC) Acute kidney injury (HCC) Atrial fibrillation (HCC) Hyponatremia 1. Probable d/c tomorrow to rehab facility in [place] 2. Present for LVAD next week though would like to se if he improves with medic al therapy 3. ICD today (not CANDLE MAKING SUPERVISOR per EP) 4. Add toprol 12.5 daily today 5. Already on MRA, ARNI and SGLT2i 6. Hopefully will improve with medical therapy and will not need LVAD in future 7. Low dose lasix 8. Decrease amio 100 daily with eventual goal of weaning off Treatment goals, progress and next steps, as above, were discussed and mutually agreed upon with the patient/family. PPE Statement: Ponce Fosneca MD used Yellow precautions (Level 1 mask over level 3 mask). This note was completed by: Attending: I have performed an independent review of the following: Tele, labs Ponce Fonseca 01/08/2022 OBJECTIVE: Vitals: BP: 102/52 Pulse: 93 Temp: 36.6 C (97.9 F) Resp: 19 SpO2: 100 % Patient Vitals for the past 96 hrs: Weight 01/08/22 0544 108.3 kg (238 lb 12.8 oz) 01/07/22 0544 109.2 kg (240 lb 11.2 oz) 01/06/22 0454 114 kg (251 lb 6.4 oz) 01/05/22 0501 113.8 kg (250 lb 14.1 oz) Intake/Output Summary (Last 24 hours) at 01/08/2022 1147 Last data filed at 01/08/2022 1121 Gross per 24 hour Intake 218 ml Output 1325 ml Net -1107 ml VILLA Risk Index for in-hospital mortality Age: 71 y.o. BP: 102/52 Pulse: 93 VILLA Risk Index Score: 47 <20 is low risk 20-30 is Intermediate >30 is high risk Physical Exam Eyes: General: No scleral icterus. Neck: Vascular: No JVD. Cardiovascular: Rate and Rhythm: Normal rate and regular rhythm. Pulses: Intact distal pulses. Heart sounds: Normal heart sounds. No murmur heard. No friction rub. No gallop. Pulmonary: Effort: Pulmonary effort is normal. No respiratory distress. Breath sounds: Normal breath sounds. No wheezing or rales. Chest: Chest wall: No tenderness. Abdominal: General: Bowel sounds are normal. There is no distension. Palpations: Abdomen is soft. There is no mass. Tenderness: There is no abdominal tenderness. There is no guarding or rebound . Musculoskeletal: Cervical back: Neck supple. Comments: 1+ edema Skin: General: Skin is warm and dry. Findings: No rash. Neurological: Mental Status: He is alert and oriented to person, place, and time. Psychiatric: Thought Content: Thought content normal. Scheduled medications: [START ON 01/09/2022] amiodarone 100 mg Oral Daily aspirin 81 mg Oral Daily atorvastatin 20 mg Oral Nightly empagliflozin 10 mg Oral Daily eplerenone 25 mg Oral Daily fluticasone propionate 1 spray Each Nare Daily furosemide 40 mg Oral Daily insulin lispro 1-6 Units Subcutaneous 4 times daily before meals and nightl y levothyroxine 25 mcg Oral Daily metoprolol succinate 12.5 mg Oral Daily sacubitriL-valsartan 1 tablet Oral BID tamsulosin 0.4 mg Oral Daily Cabezas labs: Most Recent Result within the last 7 days Lab Units 01/08/22 1043 01/07/22 0719 01/06/22 1020 01/05/22 0201 01/04/22 1141 01/04/22 0600 01/01/22 2342 01/01/22 1450 WBC TH/uL 6.88 6.09 6.52 6.98 -- 7.74 < > -- HEMOGLOBIN g/dL 12.0* 10.9* 11.7* 10.9* -- 11.3* < > -- HEMATOCRIT % 38* 35* 38* 34* -- 35* < > -- PLATELET COUNT Th/uL 298 288 296 267 263 254 < > -- INR -- -- -- -- -- -- -- 1.4* < > = values in this interval not displayed. Most Recent Result within the last 7 days Lab Units 01/08/22 1043 01/07/22 0719 01/06/22 1020 01/05/22 0201 01/04/22 0600 SODIUM mEq/L 135* 135* 133* 133* 133* CARBON DIOXIDE mEq/L 28 26 29 26 27 BLOOD UREA NITROGEN mg/dL 9 8* 9 10 11 CREATININE mg/dL 1.10 0.80 1.10 1.00 1.10 Most Recent Result within the last 7 days Lab Units 01/08/22 1043 01/07/22 0719 01/06/22 1020 01/05/22 0201 01/04/22 0600 POTASSIUM mEq/L 3.6 3.5 3.8 3.7 4.2 Most Recent Result within the last 7 days Lab Units 01/08/22 1043 01/07/22 0719 01/06/22 1020 01/05/22 0201 01/04/22 0600 GLUCOSE mg/dL 118* 120* 108* 117* 106* Most Recent Result within the last 7 days Lab Units 01/08/22 1043 01/07/22 0719 01/06/22 1020 ALKALINE PHOSPHATASE U/L 123 114 120 PROTEIN TOTAL SERUM g/dL 5.9 5.4* 5.9 ALBUMIN g/dL 3.6 3.3* 3.4* ALANINE AMINOTRANSFERASE U/L 27 27 32 ASPARTATE AMINOTRANSFERASE U/L 16 13 16 Lab Results Component Value Date HGBA1C 6.9 (H) 01/01/2022 Ponce Fonseca MD 01/08/2022 11:47 AM * Nicol Hutchins APRN - 01/07/2022 3:00 PM CDT PMR Follow Up Note Subjective Anabella Faye is being seen in follow up for continued evaluation of rehabilitat ion needs. He was initially evaluated as a part of the LVAD process by our team, however at this time the team has decided to pursue ongoing medical management. He is having ICD placement tomorrow 01/08/22. At the time of my evaluation Anabella Faye is sitting up in his chair. No family at bedside. No acute complaints. PPE Statement: Nicol Hutchins APRN used Yellow precautions (Level 1 mask worn over level 3 mask, eye protection, and gloves). Objective Temp: [36.3 C (97.4 F)-36.7 C (98 F)] 36.4 C (97.5 F) Pulse: [77-88] 88 Resp: [16-20] 17 BP: (91-107)/(53-66) 97/53 Physical Exam General Appearance: Well developed adult male in NAD. Neurological Examination: Awake, alert, oriented to person, place and time. Cognition & Comprehension - Performs simple and complex commands. Speech is clear, fluent and appropriate. No signs of aphasia or dysarthria. CN 2- 12 grossly intact. Muscle bulk and tone are normal throughout. MMT: Right/5 Left/5 Deltoids 5 5 Biceps 5 5 Triceps 5 5 Wrist extension 5 5 Marketing Support Assistant 5 5 Iliopsoas 5 5 Quadriceps 5 5 Tibialis Anterior 5 5 Gastrocnemius 5 5 EHL 5 5 Sensation is intact to light touch throughout. No extinction with bilateral simu ltaneous stimulation. Finger to Nose & Heel to Porter - show no dysmetria or dystaxia. There is no clonus. Plantars are down going bilaterally. Negative Goldman's. : Continent. GI: Continent. Last BM = patient reports today. Review of Therapy Notes PT - 01/07/22 Transfers Assistive Device Rolling walker Sit to Stand Transfers Stand by assistance;Assistive Device Stand to Sit Transfers Min assist;Assistive Device Gait Gait Distance (Feet) 80 Assistive Device Rolling walker Gait Level Surface Assistance Minimal Pattern L Decreased step length;R Decreased step length;Decreased raman Gait Comments Pt was fatigue and SOA with increased gait distance, but he report ed that it "felt good" to be able to get up and ambulate OT - 01/07/22 ADL Adaptive Equipment/Durable Medical Equipment Java Groovy Developer Grooming Minimal Assistance Grooming Type of Task Washing, Rinsing and/or Drying the hand;Washing, Rinsing a nd/or Drying the face;Shaving the face Grooming comments Min A for thoroughness. Encouraged patient to complete tasks i n sitting and standing to conserve energy. P with a small cut when shaving. Bloo d clotted before end of session. Lower Body Dressing Minimal Assistance Lower Body Dressing, Type of Clothing Left sock;Right sock Lower Body Dressing Type of Assistance Steadying assistance ADL Comments Long-handled sponge was given to the patient to use at home for bat kimmy. Energy conservation Bed Mobility Supine to Sit Stand by assistance Transfers Assistive Device Rolling walker Sit to Stand Transfers Min assist Stand to Sit Transfers Min assist Gait Activity Gait Surface level surface Gait Activity room mobility Gait Time 0-5 min Gait Assistance min assist Assessment/Rehab Diagnoses I have personally performed an independent review of the patient's vital signs, laboratory/pathology/culture results (as indicated), imaging studies (results we re not discussed with the performing provider), diagnostic tests/studies (result s were not discussed with the performing provider), current inpatient medication s, senior consultant notes, and vp software support notes with pertainent findings noted with in the assessment/plan. I have personally reviewed the patient's past medical, s urgical, family, or social history and there were no changes reported. Debility Acute decompensated heart failure - underwent advanced heart failure therapy juan luis luation Nonischemic cardiomyopathy History of COVID-19 infection Persistent atrial fibrillation Hypothyroidism Acute kidney injury Hypertension Hyperlipidemia Diabetes mellitus type 2 History of prostate cancer status post prostatectomy Plan - Anabella Faye [facility] for [facility]. He prefers to go to an [place], [place]. - Education provided about different levels of rehabilitation and appropriatenes s of decided upon disposition. - I have discussed the case with the following: another healthcare provider, soc melissa work, and attending PM&R staff physician. - Continue therapy efforts with PT/OT. - We will continue to follow and make recommendations as needed as the patient's needs may change from the date and time of this follow up. Nicol Hutchins, MSN, ENDBAND SIZER, AGNP-C [facility] Physical Medicine and Rehabilitation Pager [phone] * Debbie Workman LMSW - 01/07/2022 11:09 AM CDT CELI discussed pt in rounds and informed PMR has recommended acute rehab. CELI revi ewed PMR consult note from 01/02 which was part of the pt's LVAD evaluation. CELI discussed with the PMR YODIT and she will need to assess the pt for rehab. CELI met with the pt to discuss discharge planning and pt states they have discussed acu te rehab as a possibility at discharge. Pt states he prefers to go to rehab vashti ser to home. CELI explained the difficulty in transporting the pt to rehab as thi s is often not covered out of town. Pt agreeable for SW to rehab out to [facility] acute rehab in [place] and [place] in [place] to determine if they will ac cept the pt's insurance and if they cover a portion of transportation. CELI notif ied the PMR YODIT that the pt prefers rehab out of town and she will evaluate the pt if needed but will not need a new consult. CELI spoke with Sheila from [facility] ([phone]) and confirmed they do not pr ovide transportation but do accept the pt's insurance. CELI called [facility] ([phone]) and left a voicemail with their l Allen mcbride, requesting a call back. CELI later discussed with the attending physician who recommended speaking with PT to determine if the pt is safe to transport via personal vehicle to rehab. Also discussed having PMR evaluate the pt to determine if this is the safest location for the pt. CELI notified the PMR YODIT and they will evaluate the pt for acute rehab. CELI discussed with PT via voalte and informed it is possible the pt could safety transport via personal vehicle depending on the type of car. CELI faxed a referral to [facility] acute rehab at [phone]. Debbie Workman LMSW [phone] * Je Torres NP - 01/07/2022 10:00 AM CDT Images from the original note were not included. Cardiac Electrophysiology Progress Note Hospital Day: 7 Chief complaint: VT Clinical summary: Mr. Faye is a 71-year-old male with a past medical history of hypertension, hyp erlipidemia, type 2 diabetes mellitus, COVID infection 09/27 and prostate cancer status post prostatectomy who was transferred from the [facility] in [place] on 12/15/2021 for advanced heart failure therapy evaluation. The patient had COVID-19 infection that did not require hospitalization in 2021. He then successfully underwent left knee arthroplasty in October 2021 . In the postoperative period, he was found to have worsening shortness of iraj th and lower extremity edema. He is from [facility] [place] but was visiting [place] at the end of November when he presented with these symptoms. He was found t o have an LVEF of 10% and CLAYTON. His hospital course included diuresis and dobuta mine inotropic therapy for cardiogenic shock. He developed atrial fibrillation and was started on anticoagulation. He underwent coronary angiography without si gnificant obstructive disease. He developed to sustained ventricular tachycardi a requiring electrical cardioversion and initiation of amiodarone. His guidelin e directed medical therapy has been added and slowly titrated. TTE at [facility] with reduced LVEF and significant RV dilatation and d ysfunction. He has undergone cardiac MRI and results are pending. His EKG demonstrates sinus rhythm with first-degree AV block of 400 ms, IVCD wit h QRS 130 ms. CHANGES IN THE PAST 24 HOURS: Clinical: Patient sitting up in chair today. Denies chest pain. He was able to g et up to bathroom today to shave and comb his hair. Labs/tests/procedures: Na 135 K+ 3.5 BUN 8 Cr 0.8 RBC 4.00 Hgb 10.9 Hct 35 ECG/Telemetry: Sinus rhythm, rates 70s-80s. ASSESSMENT & PLAN: Principal Problem: Acute on chronic systolic heart failure (HCC) Active Problems: Cardiogenic shock (HCC) Benign essential hypertension Mixed hyperlipidemia Primary insomnia Prostate cancer (HCC) COVID-19 virus infection Obesity Type 2 diabetes mellitus (HCC) Acute kidney injury (HCC) Atrial fibrillation (HCC) Hyponatremia 1. Nonischemic cardiomyopathy with NYHA Class III, ACC AHA Stage C - Ongoing evaluation for advanced therapies and titration of GDMT. - Likely no benefit to be derived from CANDLE MAKING SUPERVISOR implant - Recommend ICD implant for secondary prevention as below 2. Sustained ventricular tachycardia s/p cardioversion - Patient on amiodarone at this time. - No recurrence of VT noted overnight - Recommend ICD implant tomorrow 01/[address] Herr - Given limited availability with providers who are active in LEADR study, will not screen patient to avoid prolonged admission. - Continue to monitor on telemetry - NPO after midnight - Hold heparin starting 6 hours pre-op 3. Paroxysmal atrial fibrillation - CHADS2-VASC of 4 (age, HF, HTN, DMII). - No recurrence noted on telemetry - Continue heparin, hold starting 6 hours pre-op - Continue amiodarone Case reviewed with primary cardiology team. Je Torres DNP, RN CARDIAC-C OBJECTIVE: Vitals: Temp: [36.3 C (97.4 F)-36.7 C (98 F)] 36.7 C (98 F) Pulse: [77-88] 77 Resp: [16-20] 18 BP: (91-109)/(55-68) 100/59 @WEIGHTCHANGE@ Intake/Output Summary (Last 24 hours) at 01/07/2022 1000 Last data filed at 01/07/2022 0551 Gross per 24 hour Intake 720 ml Output 3225 ml Net -2505 ml Physical Exam Constitutional: Appearance: He is well-developed. HENT: Head: Normocephalic and atraumatic. Cardiovascular: Rate and Rhythm: Normal rate and regular rhythm. Pulses: Intact distal pulses. Heart sounds: Normal heart sounds. No murmur heard. Pulmonary: Effort: Pulmonary effort is normal. Breath sounds: Normal breath sounds. Abdominal: General: Bowel sounds are normal. Palpations: Abdomen is soft. Tenderness: There is no abdominal tenderness. Musculoskeletal: General: Normal range of motion. Cervical back: Normal range of motion and neck supple. Right lower le+ Edema present. Left lower le+ Edema present. Skin: General: Skin is warm and dry. Neurological: Mental Status: He is alert and oriented to person, place, and time. Psychiatric: Behavior: Behavior normal. Thought Content: Thought content normal. Judgment: Judgment normal. Scheduled medications: amiodarone 200 mg Oral Daily aspirin 81 mg Oral Daily atorvastatin 20 mg Oral Nightly empagliflozin 10 mg Oral Daily eplerenone 25 mg Oral Daily fluticasone propionate 1 spray Each Nare Daily furosemide 40 mg Oral Daily insulin lispro 1-6 Units Subcutaneous 4 times daily before meals and nightl y levothyroxine 25 mcg Oral Daily sacubitriL-valsartan 1 tablet Oral BID tamsulosin 0.4 mg Oral Daily Infusion medications: heparin 11.8 Units/kg/hr (01/06/22 1819) Cabezas labs: Most Recent Result within the last 7 days Lab Units 01/07/22 0719 01/06/22 1020 01/05/22 0201 01/01/22 0025 12/31/21 2044 BLOOD UREA NITROGEN mg/dL 8* 9 10 < > 18 CREATININE mg/dL 0.80 1.10 1.00 < > 1.40* | 1.40* SODIUM mEq/L 135* 133* 133* < > 121* POTASSIUM mEq/L 3.5 3.8 3.7 < > 4.2 MAGNESIUM mg/dL -- -- -- -- 1.60 | 1.60 < > = values in this interval not displayed. Most Recent Result within the last 7 days Lab Units 01/07/22 0719 01/01/22 2342 01/01/22 1450 WBC TH/uL 6.09 < > -- HEMOGLOBIN g/dL 10.9* < > -- PLATELET COUNT Th/uL 288 < > -- INR -- -- 1.4* < > = values in this interval not displayed. * Ponce Fonseca MD - 01/07/2022 6:55 AM CDT Images from the original note were not included. Cardiac Heart Failure Progress Note This hospital encounter may have been performed with modifications including crockett ited or no face to face contact as noted in physical exam below due to concerns about potential exposure to COVID-19 in an effort to minimize patient and provid er risk. Hospital Day: 7 Chief complaint: decompensated heart failure, inability to wean off inotropes Clinical summary: Mr. Faye is a 71-year-old male with hypertension, hyperlipidemia, type 2 diabet es mellitus, COVID-19 infection in 09/2021 (not hospitalized) andprostate cance r s/pprostatectomy. In September 2021, he was infected with COVID-19 but did no t require hospitalization.In October 2021, patient successfully underwent l eft total knee arthroplasty in October 2021. In the postoperative period, he s tarted to develop worsening shortness of breath and LE edema. Although he live s in [place], [place],he was visiting his son in the [place] area and ended u p being admitted at the [facility] on 12/03/2021. Echo showed LVEF 10%, ri ght pleural effusion(transudative on thoracentesis)with CLAYTON. He was diurese d and started on dobutamine infusion which improved symptoms and resulted in 10 pound weight loss. He then developed atrial fibrillation and was started on ant icoagulation. Due to poor cardiac function, he was transferred to [facility] [place] for ischemic work-up. LHC showed no significant disease. Marsha hummel this hospitalization he went into sustained VT requiring electrical cardiover jonah and initiation of amiodarone infusion and then PO. Attempted to start aft erload reduction with lisinopril and spironolactone which led to CLAYTON and hyperka lemia. Given the continued requirement of inotrope and inability to optimize GDM T, he was transferred to [facility] for evaluation of advanced HF the rapies. Cabezas events during this stay: -01/01: right heart cath, LVAD evaluation CHANGES IN THE PAST 24 HOURS: Clinical: O>I 2500 overnight; 14.4 L negative to date Wt decreased 128.8 to 109.2 this admit Feeling better than on admit Agrees to ICD implantation to be done tomorrow Spoke with Dr Herr who stated he would not likely benefit from CANDLE MAKING SUPERVISOR since he inman s IVCD and less than 150 EP recommendations: Recommend secondary prevention ICD before discharge from hospital. I have had a shared decision making discussion with the patient and reviewed the alternativ es, risks and benefits of the procedure and he wishes to proceed. 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 Agree wi th amiodarone given HF and sustained VT. Labs/tests/procedures: Na 136 K 3.5 Cr 0.8 ALT 27 AST 13 TB 1.0 WBC 6.1 H/H 10.9/35 Plt 288 EKG/Telemetry: Afib PVCs ASSESSMENT & PLAN: Principal Problem: Acute on chronic systolic heart failure (HCC) Active Problems: Cardiogenic shock (HCC) Benign essential hypertension Mixed hyperlipidemia Primary insomnia Prostate cancer (HCC) COVID-19 virus infection Obesity Type 2 diabetes mellitus (HCC) Acute kidney injury (HCC) Atrial fibrillation (HCC) Hyponatremia 1. Increase Entresto 49/51 bid 2. No beta blockers yet until shock physiology resolves 3. ICD in am 4. PM&R consult recommended acute rehab - will have to see if available closer to home 5. Will check effectiveness of oral lasix and adjust prn 6. Present for VAD eval next week Treatment goals, progress and next steps, as above, were discussed and mutually agreed upon with the patient/family. PPE Statement: Ponce Fonseca MD used Yellow precautions (Level 1 mask over level 3 mask). This note was completed by: Attending: I have performed an independent review of the following: Tele, labs Ponce Fonseca 01/07/2022 OBJECTIVE: Vitals: BP: 91/58 Pulse: 78 Temp: 36.4 C (97.6 F) Resp: 20 SpO2: 96 % Patient Vitals for the past 96 hrs: Weight 01/07/22 0544 109.2 kg (240 lb 11.2 oz) 01/06/22 0454 114 kg (251 lb 6.4 oz) 01/05/22 0501 113.8 kg (250 lb 14.1 oz) 01/04/22 0534 116.1 kg (255 lb 15.3 oz) Intake/Output Summary (Last 24 hours) at 01/07/2022 0655 Last data filed at 01/07/2022 0551 Gross per 24 hour Intake 720 ml Output 3225 ml Net -2505 ml VILLA Risk Index for in-hospital mortality Age: 71 y.o. BP: 91/58 Pulse: 78 VILLA Risk Index Score: 44 <20 is low risk 20-30 is Intermediate >30 is high risk Physical Exam Eyes: General: No scleral icterus. Neck: Vascular: No JVD. Cardiovascular: Rate and Rhythm: Normal rate and regular rhythm. Pulses: Intact distal pulses. Heart sounds: Normal heart sounds. No murmur heard. No friction rub. No gallop. Pulmonary: Effort: Pulmonary effort is normal. No respiratory distress. Breath sounds: Normal breath sounds. No wheezing or rales. Chest: Chest wall: No tenderness. Abdominal: General: Bowel sounds are normal. There is no distension. Palpations: Abdomen is soft. There is no mass. Tenderness: There is no abdominal tenderness. There is no guarding or rebound . Musculoskeletal: Cervical back: Neck supple. Right lower leg: No edema. Left lower leg: No edema. Skin: General: Skin is warm and dry. Findings: No rash. Neurological: Mental Status: He is alert and oriented to person, place, and time. Psychiatric: Thought Content: Thought content normal. Scheduled medications: amiodarone 200 mg Oral Daily aspirin 81 mg Oral Daily atorvastatin 20 mg Oral Nightly empagliflozin 10 mg Oral Daily eplerenone 25 mg Oral Daily fluticasone propionate 1 spray Each Nare Daily furosemide 40 mg Oral Daily insulin lispro 1-6 Units Subcutaneous 4 times daily before meals and nightl y levothyroxine 25 mcg Oral Daily sacubitriL-valsartan 1 tablet Oral BID tamsulosin 0.4 mg Oral Daily Infusion medications: heparin 11.8 Units/kg/hr (01/06/22 1819) Cabezas labs: Most Recent Result within the last 7 days Lab Units 01/06/22 1020 01/05/22 0201 01/04/22 1141 01/04/22 0600 01/03/22 0322 01/02/22 1734 01/02/22 0627 01/01/22 2342 01/01/22 1450 01/01/22 0025 12/31/21 2044 WBC TH/uL 6.52 6.98 -- 7.74 7.54 -- 9.03 -- -- < > 6.71 HEMOGLOBIN g/dL 11.7* 10.9* -- 11.3* 10.8* -- 11.4* -- -- < > 11.0* HEMATOCRIT % 38* 34* -- 35* 34* -- 35* -- -- < > 34* PLATELET COUNT Th/uL 296 267 263 254 231 < > 225 < > -- < > 215 INR -- -- -- -- -- -- -- -- 1.4* -- 1.3* < > = values in this interval not displayed. Most Recent Result within the last 7 days Lab Units 01/06/22 1020 01/05/22 0201 01/04/22 0601/03/22 0322 01/02/22 2358 01/02/22 0627 01/01/22 0025 12/31/21 2044 SODIUM mEq/L 133* 133* 133* 129* -- 126* < > 121* CARBON DIOXIDE mEq/L 29 26 27 22 -- 23 < > 21 BLOOD UREA NITROGEN mg/dL 9 10 11 12 -- 15 < > 18 CREATININE mg/dL 1.10 1.00 1.10 1.00 1.00 1.00 < > 1.40* | 1.40* MAGNESIUM mg/dL -- -- -- -- -- -- -- 1.60 | 1.60 < > = values in this interval not displayed. Most Recent Result within the last 7 days Lab Units 01/06/22 1020 01/05/22 0201 01/04/22 0600 01/03/22 03201/02/22 0627 POTASSIUM mEq/L 3.8 3.7 4.2 3.9 3.5 Most Recent Result within the last 7 days Lab Units 01/06/22 1020 01/05/22 0201 01/04/22 0600 01/03/22 03201/02/22 0627 GLUCOSE mg/dL 108* 117* 106* 109* 106* Most Recent Result within the last 7 days Lab Units 01/06/22 1020 01/05/22 0201 01/04/22 0600 ALKALINE PHOSPHATASE U/L 120 113 111 PROTEIN TOTAL SERUM g/dL 5.9 5.6* 5.4* ALBUMIN g/dL 3.4* 3.3* 3.4* ALANINE AMINOTRANSFERASE U/L 32 36 41 ASPARTATE AMINOTRANSFERASE U/L 16 13 17 Lab Results Component Value Date HGBA1C 6.9 (H) 01/01/2022 Echo Complete with Doppler and Color Flow 01/01/22: 1. Severe left ventricular dilatation. LVEDVI= 130 ml/m2. 2. Severely reduced left ventricular systolic function, with a calculated ejecti on fraction of 24%. 3. Global hypokinesis with some regional variability. 4. Severe right ventricular dilatation with severely reduced systolic function. 5. Mild aortic stenosis. 6. Mild MR. Maxc-hz-[id number] TR. 7. Estimated central venous and PA pressures are elevated. No previous study available for comparison. Ponce Fonseca MD 01/07/2022 5:48 PM * Maxine Song MD - 01/06/2022 1:57 PM CDT Images from the original note were not included. Cardiac Heart Failure Progress Note This hospital encounter may have been performed with modifications including crockett ited or no face to face contact as noted in physical exam below due to concerns about potential exposure to COVID-19 in an effort to minimize patient and provid er risk. Hospital Day: 6 Chief complaint: decompensated heart failure, inability to wean off inotropes Clinical summary: Mr. Faye is a 71-year-old male with hypertension, hyperlipidemia, type 2 diabet es mellitus, COVID-19 infection in 09/2021 (not hospitalized) andprostate cance r s/pprostatectomy. In September 2021, he was infected with COVID-19 but did no t require hospitalization.In October 2021, patient successfully underwent l eft total knee arthroplasty in October 2021. In the postoperative period, he s tarted to develop worsening shortness of breath and LE edema. Although he live s in [place], [place],he was visiting his son in the [place] area and ended u p being admitted at the [facility] on 12/03/2021. Echo showed LVEF 10%, ri ght pleural effusion(transudative on thoracentesis)with CLAYTON. He was diurese d and started on dobutamine infusion which improved symptoms and resulted in 10 pound weight loss. He then developed atrial fibrillation and was started on ant icoagulation. Due to poor cardiac function, he was transferred to [facility], [place], operated by [facility] for ischemic work-up. LHC showed no significant disease. Durin g this hospitalization he went into sustained VT requiring electrical cardiovers ion and initiation of amiodarone infusion and then PO. Attempted to start afte rload reduction with lisinopril and spironolactone which led to CLAYTON and hyperkal emia. Given the continued requirement of inotrope and inability to optimize GDMT , he was transferred to [facility] for evaluation of advanced HF ther apies. Cabezas events during this stay: -01/01: right heart cath, LVAD evaluation CHANGES IN THE PAST 24 HOURS: Clinical: Sitting up in bed, without complaints. Notes improvement in lower ext remity edema. Reports adequate intake of food and fluids. Denies dizziness, li ghtheadedness, shortness of air at rest, dyspnea on exertion, palpitations, ches t pain and discomfort, orthopnea, paroxysmal noctural dyspnea, abdominal distent ion. Denies nausea, vomiting, diarrhea and constipation, blood in the stool inc luding dark, tarry stools bright red blood in the stool. Last bowel movement wa s on 01/05. Labs/tests/procedures: -Sodium 133, stable -Potassium 3.8, stable -Creatinine 1.1, slightly increased from 1.0-day prior -WBC 6.52, stable - Hemoglobin 11.7, stable -Platelets 296, stable EKG/Telemetry: NSR with first degree AV block, intermittent 2-3 beat runs of NSV T ASSESSMENT & PLAN: Principal Problem: Acute on chronic systolic heart failure (HCC) Active Problems: Cardiogenic shock (HCC) Benign essential hypertension Mixed hyperlipidemia Primary insomnia Prostate cancer (HCC) COVID-19 virus infection Obesity Type 2 diabetes mellitus (HCC) Acute kidney injury (HCC) Atrial fibrillation (HCC) Hyponatremia Acute on chronic combined systolic and diastolic heart failure Cardiogenic Shock Left bundle branch block Hypertension -left heart cath: OSH records w/o significant obstructive CAD -NYHA class II -echocardiogram on 01/01 with LVEF 24%, severe right ventricular dilatation with severely reduced systolic function, [id number]-[id number] TR, full impression as note d below -right heart cath on 12/29 with significantly elevated right and left-sided filli ng pressures, additional details as noted above -dobutamine discontinued on 12/31 -GDMT includes sacubitril/valsartan, empagliflozin, eplerenone. Reviewed blood pressures, variable, will continue to monitor -noted RV dysfunction on echocardiogram, MRI completed on 01/03, results pending -hypervolemia noted on exam. Weight unchanged from day prior. Admission weight noted to be 128.8 kg. Weight today 114 kg. Has been on IVP Lasix 40 mg daily. Plan to transition oral diuretics tomorrow, 01/07. Plan to continue to monitor volume status closely -EP consulted to evaluate if patient would benefit from cardiac resynchronizatio n therapy due to presence of left bundle branch block -LVAD evaluation including testing, procedures and consultations as noted below Paroxysmal atrial fibrillation -sinus rhythm on telemetry -continues on amiodarone -continues on heparin infusion for anticoagulation. Plan to transition to DOAC when no further invasive procedures are anticipated -without evidence of active bleeding Euthyroid Sick Syndrome -TSH 8.15, T4 Free 0.8 -per Endocrinology, initiated on levothyroxine, recheck thyroid function in 6 we eks, see below for additional input from Endocrinology Acute Kidney, Resolved Hyponatremia -sodium stable, asymptomatic -renal function stable -continue to monitor renal function and electrolytes closely Diabetes type II -hemoglobin a1c 6.9% on 01/01 -reviewed blood glucose levels, stable -continue SSI -continue empagliflozin -continue AC/HS accuchecks Hyperlipidemia -continue statin therapy Physical deconditioning -continue Physical Therapy and Occupational Therapy -Occupational Therapy recommended post acute care facility -consult PMR for evaluation for acute inpatient rehab Urinary retention -Urology following. Evaluated today, 01/06, and recommended continuation of Floma x. Keep catheter for 5 to 7 days and then can have a voiding trial. Of note, patient Covid PCR rapid on 12/31. Reassessment of Covid PCR on 01/[address] Song, felt patient without active Covid infection. I have performed an independent review of the following: Telemetry, laboratory grecia hutchison. I have discussed the case with the following: Dr. Song. Treatment goals, progress and next steps, as above, were discussed and mutually agreed upon with the patient/family. PPE Statement: Tanya Saul, CATALYST OPERATOR used Yellow precautions (Level 1 mask worn over level 3 mask, and gloves). I, Tanya Saul, obtained the medical history and physical exam as documented edgar taylor. I asked Dr. Song to assist in interpretation of laboratory tests and te lemetry and to help formulate the plan of care for treatment of acute on chronic combined systolic and diastolic heart failure in the setting of continued hyper volemia, paroxysmal atrial fibrillation on heparin infusion, left bundle branch block with consideration by EP for CANDLE MAKING SUPERVISOR. I spent 25 minutes in direct patient ca re for Anabella Faye. Tanya Saul 01/06/2022 STAFF ATTESTATION IMaxine personally interviewed and examined . Anabella Faye. I indep endently verified portions of the history and physical exam and made appropriate additions/changes as highlighted above in bold. I agree with the assessment and plan as outlined by the advanced practice provider above. In addition, I would like to add the following: He continues to diurese well on daily IV Lasix. His renal function is stable. He has no shortness of breath, he is walked in the room but he has not walked ex tensively in the hallway. He has no chest pain no chest pressure his lower EXTR edema is much improved IMPRESSION: Principal Problem: Acute on chronic systolic heart failure (HCC) Active Problems: Cardiogenic shock (HCC) Benign essential hypertension Mixed hyperlipidemia Primary insomnia Prostate cancer (HCC) COVID-19 virus infection Obesity Type 2 diabetes mellitus (HCC) Acute kidney injury (HCC) Atrial fibrillation (HCC) Hyponatremia PLAN We continue to diurese him with IV Lasix. We have started guideline directed medical therapy including eplerenone, empagli flozin, sacubitril/valsartan Planning for EP evaluation to consider CANDLE MAKING SUPERVISOR given his IVCD which is of a left bun dle Pattern We discussed him briefly at our multidisciplinary meeting, there is hope for imp roved medical therapy possibly CANDLE MAKING SUPERVISOR, his RV potentially will be problematic in te una of decision therapy LVAD, however is not thought to be prohibitive. Patient is somewhat frail and deconditioned he has been in the hospital for over 3 weeks including his stay in [place]. We have asked both PT and PMNR to see him for consideration of inpatient rehab. I have performed an independent review of the following: EKG Telemetry Patient has the following secondary diagnosis: hypothyroidism I have ordered the following for this patient: EP brittni I spent 25 minutes retrieving medical data, interpreting results of diagnostic s foster, providing recommendations and coordinating care for Anabella Cheri Faye. Curt atment goals, progress and next steps, as above, were discussed and mutually agr eed upon with the patient/family. Maxine Graciela 01/06/2022 OBJECTIVE: Vitals: BP: 109/68 Pulse: 88 Temp: 36.7 C (98 F) Resp: 18 SpO2: 98 % Patient Weights for the past 96 hrs: Vitals: 01/03/22 0537 01/04/22 0534 01/05/22 0501 01/06/22 0454 Weight: 119.3 kg (263 lb 1.6 oz) 116.1 kg (255 lb 15.3 oz) 113.8 kg (250 lb 14.1 oz) 114 kg (251 lb 6.4 oz) Intake/Output Summary (Last 24 hours) at 01/06/2022 1358 Last data filed at 01/06/2022 1252 Gross per 24 hour Intake 480 ml Output 2575 ml Net -2095 ml VILLA Risk Index for in-hospital mortality Age: 71 y.o. BP: 109/68 Pulse: 88 VILLA Risk Index Score: 42 <20 is low risk 20-30 is Intermediate >30 is high risk Physical Exam Vitals and nursing note reviewed. Constitutional: General: He is not in acute distress. Appearance: He is not diaphoretic. HENT: Head: Normocephalic and atraumatic. Eyes: General: Right eye: No discharge. Left eye: No discharge. Conjunctiva/sclera: Conjunctivae normal. Neck: Vascular: No JVD. Cardiovascular: Rate and Rhythm: Normal rate and regular rhythm. Pulses: Normal pulses and intact distal pulses. Heart sounds: Normal heart sounds. No murmur heard. Pulmonary: Effort: Pulmonary effort is normal. No respiratory distress. Breath sounds: Normal breath sounds. Abdominal: General: Bowel sounds are normal. There is distension (mild). Palpations: Abdomen is soft. Musculoskeletal: Cervical back: Neck supple. Right lower leg: Edema (1+ pitting) present. Left lower leg: Edema (1+ pitting) present. Skin: General: Skin is warm and dry. Neurological: General: No focal deficit present. Mental Status: He is alert and oriented to person, place, and time. Comments: Gait not assessed. No tremor noted. Moves all extremities with in tention. No aphasia present. Psychiatric: Mood and Affect: Mood normal. Behavior: Behavior normal. Thought Content: Thought content normal. Judgment: Judgment normal. Scheduled medications: amiodarone 200 mg Oral Daily aspirin 81 mg Oral Daily atorvastatin 20 mg Oral Nightly empagliflozin 10 mg Oral Daily eplerenone 25 mg Oral Daily fluticasone propionate 1 spray Each Nare Daily furosemide 40 mg Intravenous Daily insulin lispro 1-6 Units Subcutaneous 4 times daily before meals and nightl y levothyroxine 25 mcg Oral Daily sacubitriL-valsartan 1 tablet Oral BID tamsulosin 0.4 mg Oral Daily Infusion medications: heparin 11.8 Units/kg/hr (01/06/22 0221) LVAD evaluation consultations: Infectious Disease Please obtain records from PCP regarding previous vaccination. Will need Prevnar 13, Tdap, Flu vaccine, COVID 19 vaccine booster. Counseling provided regarding preventative measures including water, food bor ne illness, environment. Follow up on the pending labs, at this point I do not see any contraindicatio n for LVAD unless any labs are abnormal. Urology Will check CT abd as renal US did not visualize L kidney, otherwise no contraind ications as this time from our standpoint. Urology continued to follow due to u rinary retention, see Urology notes for details PM&R -No major rehabilitation barriers to proceeding withtrasplant/LVAD. -Continue medical/surgical care per primary team. -Physical Therapy and Occupational Therapy will be available to assess functiona l needs after any surgery and continue treatment while in hospital. -We discussed the goals of rehabilitation and options to include in-hospital the rapy prior to discharge, acute inpatient rehabilitation after discharge, and con tinued home health after that. - Social work for discharge disposition and planning.I explained to the alexandru ent that the goal would be for them to have 24-hour assistance upon returning ho ut in order for a safe transition. - PM&R will follow alongperipherally and be available after any procedures have been completed. Palliative Care - Patient voiced understanding that heart failure is a chronic life limiting con dition which progresses over time, and if at any point in their journey with hea rt failure the medical therapies being offered do not align with their quality o f life, discussions can take place about alternative options. At this time he ap pears agreeable to LVAD placement if indicated, but wants to continue discussion s with the LVAD team. - Patient voiced understanding that if they were to receive an LVAD, they would continue to require chronic disease management and frequent follow up. -Patient voiced understanding that adequate transportation, and support from [facility] members is needed during the post operative stage to assist with care and AD L's. -Palliative education folder provided which included advance care planning docum ents. Encouraged patient to review and execute when appropriate. - Discussed with patient that Palliative Medicine will allow for the heart failu re team to complete their evaluation, but are always able to be consulted again should further goals of care discussions need to take place throughout this jour enrico. Psychiatry 1. There are no active psychiatric issues detected that would be considered a c ontraindication to cardiac transplantation. 2. There are no social or behavioral factors detected that would cause difficul ty during the waiting period, recovery, or postoperatively. He reports having a good support system and seems to understand the importance of compliance with m edications and medical recommendations. 3. There is no history or ongoing abuse of substances that would be considered a contraindication to cardiac transplantation. Nephrology Patient ability to proceed with LVAD dependent on imaging and 24-hour urine prot ein results. Pulmonary He has no risk factors for chronic lung disease and no prior symptoms suggestive of such. His COVID infection was mild and there is a low risk of persistent lung disease in mild infections. CXR is consistent with pulmonary edema but his CT is pending. Will await results of CT of chest. PFTs were ordered but I do not think they tiesha l add much to his evaluation if CT is consistent with pulmonary edema given his lack of smoking history and no respiratory symptoms prior to his cardiomyopathy. Gastroenterology *Colorectal screening -Reports colonoscopy 2 years ago which was normal. No family history. No histo ry of colonic polyps. -Will request records from-the [facility] in [place]. *Hepatobiliary screening *Elevated ALT *Mild hyperbilirubinemia 1.4 Suspect mild ALT elevation and hyperbilirubinemia secondary to congestive hepato diego. -Will await abdominal imaging and acute hepatitis panel results for any further recommendations. *Upper GI No red flag symptoms such as unintentional weight loss, dysphagia or persistent GERD that warrants upper endoscopy -Will request EGD records from the [facility] in [place] *Iron deficiency -Will need to see if the patient was iron deficient at the time of his last EGD and colonoscopy. If he was then repeat endoscopy is not warranted however if he was not EGD and colonoscopy would be recommended. These could be done in the o utpatient setting in the near future versus inpatient setting next week. CT Surgery 71 y/o M who was transferred here for advanced heart therapies evaluation. She h as a history of HTN, HLD, DM and recent covid infection in September. He follows a t the [facility]. He did require admission for pneumonia at the [facility] following his COVID i nfection. He denies knowing of any heart disease prior to this. During recent ad mission in November at OSH, he was found to have heart failure with echo showing a severely reduced EF around 10% and possible . He underwent heart cath which sh owed no significant CAD. During this course he has had bouts of a-fib requiring anticoagulation and amiodarone, as well as VT which required cardioversion. He h as been maintained on dobutamine. He was attempted on GDMT but was limited due t o transaminitis and CLAYTON. All studies including echo obtained this admission reviewed. He has a very reduc ed EF with LV and RV dilation and significant RV dysfunction as well. Mild . [facility], report pending. He is planned to have a cardiac MRI to better determine the cause of his significant heart failure. Will need to review his RHC pressures once available as well. He would be at significant risk of RV failure/dysfunction if LVAD were to be con sidered given his RV dilation and poor RV function currently. Will need to obtai n studies and medical optimization and discuss at multi-disciplinary conference. Endocrine ASSESSMENT/PLAN: 1. Hypothyroidism - with elevated TSH of 8 and low Free T4 of 0.8 in this 71 yea r old with cardiomyopathy likely related to COVID 19. I have reviewed with the patient and his that he does have multiple symptoms of hypothyroidism. His ongoing use of amiodarone is the likely greatest risk. We have agreed based on symptoms and low levels to treat. We are starting levothyroxine 25 mcg daily. Reviewed that this will take some time to reach steady state. We are using a v erica low dose with plans for slow up titration given his cardiovascular concerns. Endocrinology will sign off - he will need TFT's in 6 weeks 2. Cardiomyopathy -most likely related to COVID-19. Very low ejection fraction . With his current cardiovascular concerns we will pick a very low dose of thyr oid hormone and slowly titrate. 3. Occasional low BS - patient remains on Jardiance - if the BS is low - may nee d to take less of discontinue. Just emphasize ingestion of protein and healthy n utrition. LVAD evaluation Testing and Consultations: CV MRI Cardiac W Wo contrast 01/03/2022 Impression pending. Carotid U/S 01/03/22 1. Less than 50% stenosis of the internal carotid arteries. Mild beatriz cified plaque bilaterally. 2. Antegrade flow in the vertebral arteries Chest CT 01/02/22 1. Moderate right and small left pleural effusions with associated rig ht worse than left bibasilar relaxation atelectases. 2. No discrete focal consol idation or concerning pulmonary nodule or mass. 3. Coronary and aortic atheroscl erosis. Scattered calcifications of the aortic valve leaflets for which some deg ree of aortic stenosis is suspected. Abdominal CT 01/02/22 Punctate nonobstructing left renal calculi. Otherwise unremarkable non contrast appearance of the kidneys. For other findings please see above. Abdominal U/S 01/01/22 Gallbladder wall thickening with no sonographic Solorzano sign and no gal lstones identified. Cannot exclude acalculous cholecystitis. Echocardiogram 01/01/22 1. Severe left ventricular dilatation. LVEDVI= 130 ml/m2. 2. Severely reduced left ventricular systolic function, with a calculated ejection fraction of 24%. 3. Global hypokinesis with some regional variability. 4. Severe right ve ntricular dilatation with severely reduced systolic function. 5. Mild aortic jeferson nosis. 6. Mild MR. Meho-ur-oqymobix TR. 7. Estimated central venous and PA pres sures are elevated. No previous study available for comparison. Right heart cath 01/01/2022 PRESSURES: BP: 137 mmHg / 69 mmHg HR: 83 bpm Hgb: 11.6 g/dL RA: 16 mmHg RV: 45 mmHg / 14 mmHg PA: 55 mmHg / 30 mmHg (38 mmHg) PCWP: 25 mmHg Baldev = 1.56 Art Sat: 99 % PA Sat: 66.2 % Kaela CO: 5.97 L/min Kaela CI: 2.42 L/min/m2 SVR: 965.05 dsc-5 PVR: 2.18 HILL PROCEDURAL CONCLUSION: -Significantly elevated right and left-sided filling pressures. -Adequate cardiac output on dobutamine 5 mcg/kg/min. -PA catheter sutured into place -Transfer to CCU for decongestion, optimization of GDMT, and attempted weaning o f inotropic support. CXR, most recent 12/31/21 1. Right greater than left perihilar and bibasilar heterogeneous opaci ties, likely representing moderate interstitial pulmonary edema. Superimposed i nfection or aspiration is not excluded. 2. Small right greater than left pleural effusions. 3. Cardiomegaly. * Ramiro Dale PA-C - 01/06/2022 12:00 PM CDT CHIEF COMPLAINT: Urinary retention LOS: 6 days S: No new complaints today. Hawkins was placed easily by Dr. Butts yesterday. O: Blood pressure 109/68, pulse 88, temperature 36.7 C (98 F), temperature source Oral, resp. rate 18, height 1.854 m (6' 1"), weight 114 kg (251 lb 6.4 oz ), SpO2 98 %. Scheduled Meds: amiodarone 200 mg Oral Daily aspirin 81 mg Oral Daily atorvastatin 20 mg Oral Nightly empagliflozin 10 mg Oral Daily eplerenone 25 mg Oral Daily fluticasone propionate 1 spray Each Nare Daily furosemide 40 mg Intravenous Daily insulin lispro 1-6 Units Subcutaneous 4 times daily before meals and nightl y levothyroxine 25 mcg Oral Daily sacubitriL-valsartan 1 tablet Oral BID tamsulosin 0.4 mg Oral Daily Continuous Infusions: heparin 11.8 Units/kg/hr (01/06/22227) PRN Meds:acetaminophen OR acetaminophen, aluminum-magnesium hydroxide-simeth icone, cyclobenzaprine, dextrose 50% OR dextrose 10%, docusate sodium, gluca julian OR glucagon, glucose, heparin (porcine) OR heparin (porcine), magnes ium sulfate, miconazole nitrate, nitroglycerin, polyethylene glycol, zolpidem Most Recent Result within the last 7 days Lab Units 01/06/22 1020 01/05/22 0201 01/04/22 1141 01/04/22 0600 WBC TH/uL 6.52 6.98 -- 7.74 HEMOGLOBIN g/dL 11.7* 10.9* -- 11.3* HEMATOCRIT % 38* 34* -- 35* PLATELET COUNT Th/uL 296 267 263 254 Most Recent Result within the last 7 days Lab Units 01/06/22 1020 01/05/22 0201 01/04/22 0600 SODIUM mEq/L 133* 133* 133* POTASSIUM mEq/L 3.8 3.7 4.2 CARBON DIOXIDE mEq/L 29 26 27 BLOOD UREA NITROGEN mg/dL 9 10 11 CREATININE mg/dL 1.10 1.00 1.10 GLUCOSE mg/dL 108* 117* 106* CALCIUM mg/dL 9.0 8.7 8.8 I/O last 24 Hours: In: - Out: 525 [Urine:525] Alert, NAD Normal respiratory effort. Urine yellow. A/P: Urinary retention. Continue Flomax. Keep catheter for 5 to 7 days and then can have a voiding trial. * Ponce Fonseca MD - 01/05/2022 1:39 PM CDT Images from the original note were not included. Cardiac Heart Failure Progress Note This hospital encounter may have been performed with modifications including crockett ited or no face to face contact as noted in physical exam below due to concerns about potential exposure to COVID-19 in an effort to minimize patient and provid er risk. Hospital Day: 5 Chief complaint: decompensated heart failure; inability to wean off inotropes Clinical summary: Mr. Faye is a 71-year-old male with hypertension, hyperlipidemia, type 2 diabet es mellitus, COVID-19 infection in 09/2021 (not hospitalized),andprostate can cer s/pprostatectomy who initially presented to [facility] with shortness of breath and LE swelling on 12[facility]15[facility] [place]. In September 2021, he was infected with COVID-19 but did not require hospitalizati on.His symptoms included mild fatigue and loss of taste with no fever. He then successfully underwent left total knee arthroplasty in October 2021. In th e postoperative period he started to develop worsening shortness of breath and L E edema. Although he lives in [place], Maritza was visiting his son in [facility] and ended up being admitted at the [facility] on 12/03/2021. Ec ho showed LVEF 10%, right pleural effusion(transudative on thoracentesis)wit h CLAYTON. He was diuresed and started on dobutamine infusion which improved symptom s and resulted in 10 pound weight loss. He then developed AFIB and was started o n anticoagulation. Due to poor cardiac function he was transferred to [facility] for ischemic work-up. LHC showed no significant disease. Marsha ng this hospitalization he went into sustained VT requiring electrical cardiover jonah and initiation of amiodarone infusion and then PO.Attempted to start afte rload reduction with lisinopril and spironolactone which led to CLAYTON and hyperkal emia. Given the continued requirement of inotrope and inability to optimize GDMT , he was transferred for evaluation of advanced HF therapies. Cabezas events during this stay: 01/01: RHC ; LVAD evaluation CHANGES IN THE PAST 24 HOURS: Clinical: answered most questions States he had Covid in August and never recovered - he was visiting family in [facility] when his son told him to go to the ER to be checked out [facility] and they sent him to [place] where they diagnosed him with HF Consults: ID - Please obtain records from PCP regarding previous vaccination. Will need Prevnar 13, Tdap, Flu vaccine, COVID 19 vaccine booster. Counseling provided regarding preventative measures including water, food bor ne illness, environment. Follow up on the pending labs, at this point I do not see any contraindicatio n for LVAD unless any labs are abnormal. Urology - Will check CT abd as renal US did not visualize L kidney, otherwise no contraind ications as this time from our standpoint. PM&R - -No major rehabilitation barriers to proceeding withtrasplant/LVAD. -Continue medical/surgical care per primary team. -Physical Therapy and Occupational Therapy will be available to assess functiona l needs after any surgery and continue treatment while in hospital. -We discussed the goals of rehabilitation and options to include in-hospital the rapy prior to discharge, acute inpatient rehabilitation after discharge, and con tinued home health after that. - Social work for discharge disposition and planning.I explained to the alexandru ent that the goal would be for them to have 24-hour assistance upon returning ho me in order for a safe transition. - PM&R will follow alongperipherally and be available after any procedures have been completed. Palliative Care - - Patient voiced understanding that heart failure is a chronic life limiting con dition which progresses over time, and if at any point in their journey with hea rt failure the medical therapies being offered do not align with their quality o f life, discussions can take place about alternative options. At this time he ap pears agreeable to LVAD placement if indicated, but wants to continue discussion s with the LVAD team. - Patient voiced understanding that if they were to receive an LVAD, they would continue to require chronic disease management and frequent follow up. -Patient voiced understanding that adequate transportation, and [facility] is needed during the post operative stage to assist with care and AD L's. -Palliative education folder provided which included advance care planning docum ents. Encouraged patient to review and execute when appropriate. - Discussed with patient that Palliative Medicine will allow for the heart failu re team to complete their evaluation, but are always able to be consulted again should further goals of care discussions need to take place throughout this jour enrico. Psychiatry - 1. There are no active psychiatric issues detected that would be considered a c ontraindication to cardiac transplantation. 2. There are no social or behavioral factors detected that would cause difficul ty during the waiting period, recovery, or postoperatively. He reports having a good support system and seems to understand the importance of compliance with m edications and medical recommendations. 3. There is no history or ongoing abuse of substances that would be considered a contraindication to cardiac transplantation. Nephrology - Patient ability to proceed with LVAD dependent on imaging and 24-hour urine prot ein results. Pulmonary - He has no risk factors for chronic lung disease and no prior symptoms suggestive of such. His COVID infection was mild and there is a low risk of persistent nan g disease in mild infections. CXR is consistent with pulmonary edema but his CT is pending. Will await results of CT of chest. PFTs were ordered but I do not think they tiesha l add much to his evaluation if CT is consistent with pulmonary edema given his lack of smoking history and no respiratory symptoms prior to his cardiomyopathy. GI - *Colorectal screening -Reports colonoscopy 2 years ago which was normal. No family history. No histo ry of colonic polyps. -Will request records from-the [facility] [place]. *Hepatobiliary screening *Elevated ALT *Mild hyperbilirubinemia 1.4 Suspect mild ALT elevation and hyperbilirubinemia secondary to congestive hepato diego. -Will await abdominal imaging and acute hepatitis panel results for any further recommendations. *Upper GI No red flag symptoms such as unintentional weight loss, dysphagia or persistent GERD that warrants upper endoscopy -Will request EGD records from the [facility] in [place] *Iron deficiency -Will need to see if the patient was iron deficient at the time of his last EGD and colonoscopy. If he was then repeat endoscopy is not warranted however if he was not EGD and colonoscopy would be recommended. These could be done in the o utpatient setting in the near future versus inpatient setting next week. CTS - 71 y/o M who was transferred here for advanced heart therapies evaluation. She h as a history of HTN, HLD, DM and recent covid infection in September. He follows a t the [facility]. He did require admission for pneumonia at the [facility] following his COVID i nfection. He denies knowing of any heart disease prior to this. During recent ad mission in November at OSH, he was found to have heart failure with echo showing a severely reduced EF around 10% and possible . He underwent heart cath which sh owed no significant CAD. During this course he has had bouts of a-fib requiring anticoagulation and amiodarone, as well as VT which required cardioversion. He h as been maintained on dobutamine. He was attempted on GDMT but was limited due t o transaminitis and CLAYTON. All studies including echo obtained this admission reviewed. He has a very reduc ed EF with LV and RV dilation and significant RV dysfunction as well. Mild . [facility], report pending. He is planned to have a cardiac MRI to better determine the cause of his significant heart failure. Will need t o review his RHC pressures once available as well. He would be at significant risk of RV failure/dysfunction if LVAD were to be con sidered given his RV dilation and poor RV function currently. Will need to obtai n studies and medical optimization and discuss at multi-disciplinary conference. Endocrine - ASSESSMENT/PLAN: 1. Hypothyroidism - with elevated TSH of 8 and low Free T4 of 0.8 in this 71 yea r old with cardiomyopathy likely related to COVID 19. I have reviewed with the patient and his that he does have multiple symptoms of hypothyroidism. His ongoing use of amiodarone is the likely greatest risk. We have agreed based on symptoms and low levels to treat. We are starting levothyroxine 25 mcg daily. Reviewed that this will take some time to reach steady state. We are using a v erica low dose with plans for slow up titration given his cardiovascular concerns. Endocrinology will sign off - he will need TFT's in 6 weeks 2. Cardiomyopathy -most likely related to COVID-19. Very low ejection fraction . With his current cardiovascular concerns we will pick a very low dose of thyr oid hormone and slowly titrate. 3. Occasional low BS - patient remains on Jardiance - if the BS is low - may nee d to take less of discontinue. Just emphasize ingestion of protein and healthy n utrition. Labs/tests/procedures: Latest Reference Range & Units 01/05/22 02:01 SODIUM 136 - 145 mEq/L 133 (L) POTASSIUM 3.4 - 5.1 mEq/L 3.7 CHLORIDE 98 - 109 mEq/L 100 [1] CARBON DIOXIDE 20 - 31 mEq/L 26 Anion Gap 5 - 17 mmol/L 8 Glucose 70 - 100 mg/dL 117 (H) Blood Urea Nitrogen 9 - 23 mg/dL 10 Creatinine 0.70 - 1.30 mg/dL 1.00 EGFR Female AA 60.0 - 200.0 mL/min/1.73m*2 66.1 EGFR Female Non-AA 60.0 - 200.0 mL/min/1.73m*2 54.5 (L) EGFR Male AA 60.0 - 200.0 mL/min/1.73m*2 89.0 EGFR Male Non-AA 60.0 - 200.0 mL/min/1.73m*2 73.5 CALCIUM 8.3 - 10.6 mg/dL 8.7 Latest Reference Range & Units 01/05/22 02:01 Alanine Aminotransferase 0 - 49 U/L 36 Albumin 3.5 - 5.0 g/dL 3.3 (L) Alkaline Phosphatase 44 - 150 U/L 113 [1] Aspartate Aminotransferase 0 - 34 U/L 13 [2] Protein Total Serum 5.7 - 8.2 g/dL 5.6 (L) Bilirubin Total 0.20 - 1.10 mg/dL 1.00 Latest Reference Range & Units 01/05/22 02:01 WBC 4.00 - 11.00 TH/uL 6.98 RBC 4.31 - 5.84 mil/uL 3.92 (L) HEMOGLOBIN 13.0 - 17.0 g/dL 10.9 (L) HEMATOCRIT 40 - 50 % 34 (L) MCV 80 - 99 fL 86 MCH 27 - 34 pg 28 MCHC 32 - 36 g/dL 32 RDW 9.0 - 14.5 % 17.9 (H) Platelet Count 140 - 400 Th/uL 267 MPV 9.4 - 12.3 fL 10.0 N RBC % 0 - 0 /100 WBC 0 Latest Reference Range & Units 01/01/22 14:50 INR 0.8 - 1.2 1.4 (H) Latest Reference Range & Units 01/01/22 00:25 Digoxin 0.8 - 2.0 ng/mL 2.3 (H) Latest Reference Range & Units 12/31/21 20:44 HEMOGLOBIN A1C 4.0 - 5.6 % 6.7 (H) [1] T4 Free 0.89 - 1.76 ng/dL 0.89 - 1.76 ng/dL 0.80 (L) 0.80 (L) Thyroid Stimulating Hormone 0.55 - 4.78 uIU/mL 8.15 (H) 01/01/22 14:50 ABORH Type B Positive Antibody Screen Negative Latest Reference Range & Units 01/01/22 19:24 Fecal Occult Blood Negative Negative Latest Reference Range & Units 01/01/22 22:57 Appearance, Urine Colorless, Yellow, Dark Yellow Yellow Glucose Urine Negative mg/dL Negative Ketones Urine Negative Negative Bilirubin Urine Negative Negative Hemoglobin Urine Negative Negative Specific [place], UA 1.005 - 1.030 1.006 PH Urine 5.0 - 8.0 6.0 Protein Urine Qual Negative, Trace mg/dL Negative Urobilinogen Urine Normal, Negative, 1.0 EU/dL Normal LEUKOCYTE ESTERASE Negative Negative Nitrite Urine Negative Negative Latest Reference Range & Units 01/02/22 23:58 Creatinine Clearance 60.00 - 180.00 ml/min 55.90 (L) Creatinine Urine mg/dL 20.0 22.8 Creatinine Urine 24 Calc 0.8 - 2.0 g/24hr 1.1 Hours of Collection Hours 24 Protein Urine 24 HR Calc See Comment [1] Protein Urine Quantitative mg/dL <6.0 Protein/Creat Ratio See Comment [2] Total Volume mL 5,000 5,000 Latest Reference Range & Units 12/31/21 23:30 Methamphetamines Urine Not Detected Not Detected Tetrahydrocannabinol Urine Not Detected Not Detected Tricyclic Antidepressants Not Detected Not Detected Phencyclidine Urine Not Detected Not Detected Barbiturates Urine Not Detected Not Detected Amphetamines Urine Not Detected Not Detected Opiates Urine Not Detected Not Detected Methadone Urine Not Detected Not Detected OXYCODONE URINE Not Detected Not Detected Cocaine Urine Not Detected Not Detected Benzodiazepines Urine Not Detected Present ! Latest Reference Range & Units 12/31/21 20:44 Hepatitis A Ab IgM Nonreactive Nonreactive Hepatitis B Surface Ag Nonreactive Nonreactive Hepatitis B Core Ab IgM Nonreactive, Equivocal Nonreactive Hepatitis C Ab Nonreactive Nonreactive HIV AG/JOEY Nonreactive Nonreactive Latest Reference Range & Units 12/31/21 23:30 SARS COV2 PCR Negative, Invalid Positive ! [1] Latest Reference Range & Units 12/31/21 20:44 PSA Screen 0.00 - 4.00 ng/mL 0.[address] 01/02/22: 1. Moderate right and small left pleural effusions with associated right worse t gonsalves left bibasilar relaxation atelectases. 2. No discrete focal consolidation or concerning pulmonary nodule or mass. 3. Coronary and aortic atherosclerosis. Scattered calcifications of the aortic v alve leaflets for which some degree of aortic stenosis is suspected. Abdominal CT 01/02/22: Punctate nonobstructing left renal calculi. Otherwise unremarkable noncontrast a ppearance of the kidneys. For other findings please see above. CXR 12/31/21: 1. Right greater than left perihilar and bibasilar heterogeneous opacities, like ly representing moderate interstitial pulmonary edema. Superimposed infection o r aspiration is not excluded. 2. Small right greater than left pleural effusions. 3. Cardiomegaly. Abdominal U/S 01/01/22: Gallbladder wall thickening with no sonographic Solorzano sign and no gallstones id entified. Cannot exclude acalculous cholecystitis. Carotid U/S 01/03/22: 1. Less than 50% stenosis of the internal carotid arteries. Mild calcified benny que bilaterally. 2. Antegrade flow in the vertebral arteries. Echocardiogram 01/01/22: 1. Severe left ventricular dilatation. LVEDVI= 130 ml/m2. 2. Severely reduced left ventricular systolic function, with a calculated ejec tion fraction of 24%. 3. Global hypokinesis with some regional variability. 4. Severe right ventricular dilatation with severely reduced systolic function . 5. Mild aortic stenosis. 6. Mild MR. [id number]-[id number] TR. 7. Estimated central venous and PA pressures are elevated. No previous study available for comparison. RHC - BP: 137 mmHg / 69 mmHg HR: 83 bpm Hgb: 11.6 g/dL RA: 16 mmHg RV: 45 mmHg / 14 mmHg PA: 55 mmHg / 30 mmHg (38 mmHg) PCWP: 25 mmHg Baldev = 1.56 Art Sat: 99 % PA Sat: 66.2 % Kaela CO: 5.97 L/min Kaela CI: 2.42 L/min/m2 SVR: 965.05 dsc-5 PVR: 2.18 HILL EKG/Telemetry: NSR with first degree AV block ASSESSMENT & PLAN: Active Problems: Cardiogenic shock (HCC) Benign essential hypertension Mixed hyperlipidemia Primary insomnia Prostate cancer (HCC) COVID-19 virus infection Obesity Type 2 diabetes mellitus (HCC) Heart failure with reduced ejection fraction (HCC) Elevated liver enzymes Acute kidney injury (HCC) Atrial fibrillation (HCC) Hyponatremia 1. I spoke with Dr Munson - he states to repeat another test tomorrow and get t he cycle threshold as well to determine whether this is potentially pieces of virus we are detecting (he had a negative swab last week) - he said it is not unusual for patients to have negative and positive tests remotely from the init ial infection though he agreed that August is a little long for virus to persi st 2. Will need to see Covid status before we can determine if he can go to SNF af ter discharge 3. I believe he is on pretty good medical therapy at this point will continue a nd appreciate endo's recommendation to consider stopping amiodarone - will furth er assess pre discharge 4. VAD eval - RV function borderline Treatment goals, progress and next steps, as above, were discussed and mutually agreed upon with the patient/family. PPE Statement: Ponce Fonseca MD used Yellow precautions (Level 1 mask over level 3 mask). This note was completed by: Attending: I have performed an independent review of the following: Tele, labs Ponce Fonseca 01/05/2022 OBJECTIVE: Vitals: BP: 112/71 Pulse: 87 Temp: 36.5 C (97.7 F) Resp: 16 SpO2: 100 % Patient Vitals for the past 96 hrs: Weight 01/05/22 0501 113.8 kg (250 lb 14.1 oz) 01/04/22 0534 116.1 kg (255 lb 15.3 oz) 01/03/22 0537 119.3 kg (263 lb 1.6 oz) 01/03/22 0253 119.3 kg (263 lb 1.6 oz) 01/02/22 0626 114.8 kg (253 lb 1.4 oz) Intake/Output Summary (Last 24 hours) at 01/05/2022 1339 Last data filed at 01/05/2022 0900 Gross per 24 hour Intake 480 ml Output 1975 ml Net -1495 ml VILLA Risk Index for in-hospital mortality Age: 71 y.o. BP: 112/71 Pulse: 87 VILLA Risk Index Score: 40 <20 is low risk 20-30 is Intermediate >30 is high risk Physical Exam Eyes: General: No scleral icterus. Neck: Vascular: No JVD. Cardiovascular: Rate and Rhythm: Normal rate and regular rhythm. Pulses: Intact distal pulses. Heart sounds: Normal heart sounds. No murmur heard. No friction rub. No gallop. Pulmonary: Effort: Pulmonary effort is normal. No respiratory distress. Breath sounds: Normal breath sounds. No wheezing or rales. Chest: Chest wall: No tenderness. Abdominal: General: Bowel sounds are normal. There is no distension. Palpations: Abdomen is soft. There is no mass. Tenderness: There is no abdominal tenderness. There is no guarding or rebound . Musculoskeletal: Cervical back: Neck supple. Right lower leg: No edema. Left lower leg: No edema. Skin: General: Skin is warm and dry. Findings: No rash. Neurological: Mental Status: He is alert and oriented to person, place, and time. Psychiatric: Thought Content: Thought content normal. Scheduled medications: amiodarone 200 mg Oral Daily aspirin 81 mg Oral Daily atorvastatin 20 mg Oral Nightly empagliflozin 10 mg Oral Daily eplerenone 25 mg Oral Daily fluticasone propionate 1 spray Each Nare Daily furosemide 40 mg Intravenous Daily insulin lispro 1-6 Units Subcutaneous 4 times daily before meals and nightl y levothyroxine 25 mcg Oral Daily sacubitriL-valsartan 1 tablet Oral BID tamsulosin 0.4 mg Oral Daily Infusion medications: heparin 11.8 Units/kg/hr (01/05/22 0950) Ponce Fonseca MD 01/05/2022 5:28 PM * Anette Donis MD - 01/04/2022 9:11 PM CDT S: Pt without complaints; here with heart failure for LVAD evaluation. Has h/o prostate cancer, s/p prostatectomy around 2017 in [place]. O: Blood pressure 107/65, pulse 81, temperature 36.7 C (98.1 F), temperatur e source Oral, resp. rate 18, height 1.854 m (6' 1"), weight 116.1 kg (255 lb 15 .3 oz), SpO2 98 %. Scheduled Meds: amiodarone 200 mg Oral Daily aspirin 81 mg Oral Daily atorvastatin 20 mg Oral Nightly empagliflozin 10 mg Oral Daily eplerenone 25 mg Oral Daily fluticasone propionate 1 spray Each Nare Daily furosemide 40 mg Intravenous Daily insulin lispro 1-6 Units Subcutaneous 4 times daily before meals and nightl y levothyroxine 25 mcg Oral Daily sacubitriL-valsartan 1 tablet Oral BID tamsulosin 0.4 mg Oral Daily Continuous Infusions: heparin 11.8 Units/kg/hr (01/04/22 1740) PRN Meds:acetaminophen OR acetaminophen, aluminum-magnesium hydroxide-simeth icone, cyclobenzaprine, dextrose 50% OR dextrose 10%, docusate sodium, gluca julian OR glucagon, glucose, heparin (porcine) OR heparin (porcine), magnes ium sulfate, miconazole nitrate, nitroglycerin, polyethylene glycol, zolpidem Most Recent Result within the last 7 days Lab Units 01/04/22 1141 01/04/22 0600 01/03/22 0322 01/02/22 1734 01/02/22 0627 WBC TH/uL -- 7.74 7.54 -- 9.03 HEMOGLOBIN g/dL -- 11.3* 10.8* -- 11.4* HEMATOCRIT % -- 35* 34* -- 35* PLATELET COUNT Th/uL 263 254 231 < > 225 < > = values in this interval not displayed. Most Recent Result within the last 7 days Lab Units 01/04/22 0600 01/03/22 0322 01/02/22 2358 01/02/22 0627 SODIUM mEq/L 133* 129* -- 126* POTASSIUM mEq/L 4.2 3.9 -- 3.5 CARBON DIOXIDE mEq/L 27 22 -- 23 BLOOD UREA NITROGEN mg/dL 11 12 -- 15 CREATININE mg/dL 1.10 1.00 1.00 1.00 GLUCOSE mg/dL 106* 109* -- 106* CALCIUM mg/dL 8.8 8.8 -- 8.6 I/O last 24 Hours: In: 358 [P.O.:358] Out: 825 [Urine:825] Carotid Duplex bilat Result Date: 01/03/2022 1. Less than 50% stenosis of the internal carotid arteries. Mild calcified plaque bilaterally. 2. Antegrade flow in the vertebral arteries. 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 CT of abdomen discussed with patient does show bilateral kidneys; punctate nonob structing left renal stone, otherwise unremarkable study of kidneys. On contraindicaions for advanced heart therapies from urology standpoint. We tiesha l sign off, please reconsult as needed. Anette Donis MD * Maxine Song MD - 01/04/2022 2:28 PM CDT Images from the original note were not included. Cardiac Heart Failure/Transplant Progress Note This hospital encounter may have been performed with modifications including crockett ited or no face to face contact as noted in physical exam below due to concerns about potential exposure to COVID-19 in an effort to minimize patient and provid er risk. Hospital Day: 4 Chief complaint: Shortness of Air Clinical summary: Mr. Faye is a 71-year-old male with hypertension, hyperlipidemia, type 2 diabet es mellitus, COVID-19 infection in 09/2021 (not hospitalized), and prostate cance r s/p prostatectomy who initially presented [place] [facility] with shortness of corey ath and LE swelling on 12/15/2021 who is now transferred here from [facility] in [place] for advanced HF therapy evaluation. In September 2021, he was infected with COVID-19 but did not require hospitalizati on. His symptoms included mild fatigue and loss of taste with no fever. He the n successfully underwent left total knee arthroplasty in October 2021. In the p ostoperative period he started to develop worsening shortness of breath and LE e donnie. Although he lives in [place], [place] he was visiting his son in [facility] and ended up being admitted at the [facility] on 12/03/2021. Echo [place] wed LVEF 10%, right pleural effusion (transudative on thoracentesis) with CLAYTON. H e was diuresed and started on dobutamine infusion which improved symptoms and re sulted in 10 pound weight loss. He then developed AFIB and was started on antico agulation. Due to poor cardiac function he was transferred to [facility] for ischemic work-up. LHC showed no significant disease. During this hospitalization he went into sustained VT requiring electrical cardioversion and initiation of amiodarone infusion and then PO. Attempted to start afterload red uction with lisinopril and spironolactone which led to CLAYTON and hyperkalemia. Giv en the continued requirement of inotrope and inability to optimize GDMT, he was transferred for evaluation of advanced HF therapies. Cabezas events during this stay: 01/01: RHC ; LVAD evaluation CHANGES IN THE PAST 24 HOURS: Clinical: He feels well. He was up out of the chair for most of that yesterday. His breathing and swelling are better. He has not yet walked any significant distance in the hallway Labs/tests/procedures: Na 129 Echo 01/01/22: IMPRESSION 1. Severe left ventricular dilatation. LVEDVI= 130 ml/m2. 2. Severely reduced left ventricular systolic function, with a calculated ejec tion fraction of 24%. 3. Global hypokinesis with some regional variability. 4. Severe right ventricular dilatation with severely reduced systolic function . 5. Mild aortic stenosis. 6. Mild MR. [id number] TR. 7. Estimated central venous and PA pressures are elevated. No previous study available for comparison EKG/Telemetry: Sinus w LBBB. No significant ectopy. ASSESSMENT & PLAN: Active Problems: Cardiogenic shock (HCC) Benign essential hypertension Mixed hyperlipidemia Primary insomnia Prostate cancer (HCC) COVID-19 virus infection Obesity Type 2 diabetes mellitus (HCC) Heart failure with reduced ejection fraction (HCC) Elevated liver enzymes Acute kidney injury (HCC) Atrial fibrillation (HCC) Hyponatremia 71 yo M with newly diagnosed NICM, w prior COVID 19 infection, presenting with c ardiogenic shock and decompensated HF. RHC with optimization, weaned off Dobuta mine since last evening. Will continue to titrate GDMT while evaluating for LVA D. [place] out today and transition to PO diuretics tomorrow. TTF. #Acute Systolic/Diastolic HF and Cardiogenic Shock, SCAI C -NYHA class III, ACC AHA C -Echo findings as above; no significant valvular abnormalities; TAPSE 15; RV mod erately-severely dilated -Cr 1.4 > 1.3 > 1.0; C02 23 > 23; BUN 20 > 15 -[facility] OSH records w/o o significant obstructive CAD -[facility]: CVP 3 (personaly 6-7); PA 32/16; PAD 16; does not wedge; Kaela CI 3.1; SVR 658 (off inotropes); Baldev 5.3; CVP: W (in lab) = 0.6 -He has been weaned off dobutamine, started on sacubitril/valsartan, empaglifloz in, Will add eplerenone today -He does have some RV dysfunction on echo, will get MRI to further evaluate this We will resume low-dose torsemide ##Left bundle branch block Have a wide left bundle branch block with QRS 150 ms. 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 Continue to monitor. On therapeutic anticoagulation. -Discontinued off admission digoxin -Plan to continue heparin infusion and will continue gtt pending additional proc edures -Plan to continue Amiodarone 200 mg daily # Euthyroid Sick Syndrome -Thyroid function studies reviewed # Acute Kidney, Resolved # Hyponatremia -Improving # Hypertension # DMII. SSI. SGLT2i. # Hyperlipidemia -Unclear of his home medications which will be procured from his in the [facility] [place] -Check lipid panel and A1c DVT Ppx: Heparin infusion I have performed an independent review of the following: EKG Telemetry Echocardiogram CXR I have discussed the case with the following: Another healthcare provider Treatment goals, progress and next steps, as above, were discussed and mutually agreed upon with the patient/family. OBJECTIVE: Vitals: BP: 104/68 Pulse: 88 Temp: 36.4 C (97.5 F) Resp: 18 SpO2: 99 % Patient Vitals for the past 96 hrs: Weight 01/04/22 0534 116.1 kg (255 lb 15.3 oz) 01/03/22 0537 119.3 kg (263 lb 1.6 oz) 01/03/22 0253 119.3 kg (263 lb 1.6 oz) 01/02/22 0626 114.8 kg (253 lb 1.4 oz) 01/01/22 0445 126.2 kg (278 lb 3.5 oz) 12/31/21 1935 128.8 kg (283 lb 14.4 oz) Intake/Output Summary (Last 24 hours) at 01/04/2022 1430 Last data filed at 01/04/2022 1159 Gross per 24 hour Intake 118 ml Output 1425 ml Net -1307 ml VILLA Risk Index for in-hospital mortality Age: 71 y.o. BP: 104/68 Pulse: 88 VILLA Risk Index Score: 44 <20 is low risk 20-30 is Intermediate >30 is high risk Physical Exam Constitutional: General: He is not in acute distress. Appearance: Normal appearance. He is obese. He is not ill-appearing, toxic-ap pearing or diaphoretic. HENT: Head: Normocephalic and atraumatic. Mouth/Throat: Mouth: Mucous membranes are moist. Cardiovascular: Rate and Rhythm: Normal rate and regular rhythm. Abdominal: General: Abdomen is flat. Bowel sounds are normal. There is no distension. Palpations: Abdomen is soft. Tenderness: There is no abdominal tenderness. Musculoskeletal: General: No swelling or tenderness. Right lower leg: No edema. Left lower leg: No edema. Skin: General: Skin is warm. Neurological: Mental Status: He is alert. Psychiatric: Mood and Affect: Mood normal. Thought Content: Thought content normal. Judgment: Judgment normal. Scheduled medications: amiodarone 200 mg Oral Daily aspirin 81 mg Oral Daily atorvastatin 20 mg Oral Nightly empagliflozin 10 mg Oral Daily eplerenone 25 mg Oral Daily fluticasone propionate 1 spray Each Nare Daily furosemide 40 mg Intravenous Daily insulin lispro 1-6 Units Subcutaneous 4 times daily before meals and nightl y levothyroxine 25 mcg Oral Daily sacubitriL-valsartan 1 tablet Oral BID tamsulosin 0.4 mg Oral Daily Infusion medications: heparin 11.8 Units/kg/hr (01/04/22 1339) Cabezas labs: Recent Labs 01/01/22 1450 01/01/22 2342 01/02/22 0627 01/02/22 1734 01/03/22 0322 01/04/22 0600 01/04/22 1141 WBC -- -- 9.03 -- 7.54 7.74 -- HGB -- -- 11.4* -- 10.8* 11.3* -- HCT -- -- 35* -- 34* 35* -- PLT -- < > 225 252 231 254 263 INR 1.4* -- -- -- -- -- -- < > = values in this interval not displayed. Recent Labs 01/02/22 0627 01/02/22 2358 01/03/22 03201/04/22 0600 NA 126* -- 129* 133* K 3.5 -- 3.9 4.2 CO2 - 27 BUN 15 -- 12 11 CREAT 1.00 1.00 1.00 1.10 GLU 106* -- 109* 106* Most Recent Result within the last 7 days Lab Units 01/04/22 0600 01/03/22 0322 01/02/22 0627 ALKALINE PHOSPHATASE U/L 111 108 106 PROTEIN TOTAL SERUM g/dL 5.4* 5.3* 5.6* ALBUMIN g/dL 3.4* 3.2* 3.2* ALANINE AMINOTRANSFERASE U/L 41 46 50* ASPARTATE AMINOTRANSFERASE U/L 17 15 14 No lab components to display Lab Results Component Value Date HGBA1C 6.9 (H) 01/01/2022 GLU 106 (H) 01/04/2022 GLU 109 (H) 01/03/2022 GLU 106 (H) 01/02/2022 No results found for: TACROLIMUS * Ori Colunga - 01/03/2022 5:13 PM CDT Spiritual Care Progress Note Concession Worker visited Anabella Faye to conduct an LVAD evaluation for Spiritual Wellnes sElian Vallecillo grew up in [place], [place], moving to [place], [place] 28 years ago. 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 Anabella believes in God and follows the [employer]. He understands that his heart is failing, and noticed 3-4 months ago some swelling and shortness of breath, which came as a surprise to him. He is open and receptive to receiving an LVAD, and remarks straightforwardly: "At this point (let's do) whatever it t akes." If able to receive an LVAD, Anabella hopes to be able to help his with her small garden and "keep the 's ruiz growing." He also hopes to work on cars in some capacity (however small), hopefully with his brother, who still builds and races them. Anabella's support system includes his Albina, his sons Bobby and Jose, and his brother. He also has a great many friends, many of which also reach out to support his at this time. Thank you in advance for including Spiritual Wellness in your evaluation of an L VAD for Anabella Faye. Spiritual Care Assessment Spiritual Care Assessment REFERRAL METHOD: [facility] Consult REFERRAL SOURCE: Physician PRESENT FOR ENCOUNTER: Patient SPIRITUAL DISTRESS: None Identified at this Time DISTRESS: Change or Loss WELLBEING INDICATORS: Coping, Grateful, Hopeful, Use Humor Constructively Spiritual Care Interventions/Outcomes Spiritual Care Intervention and Outcomes INTERVENTIONS: Patient Support, Caring Presence, Expression of Feelings/ Beliefs , Life Review, Reflective Listening OUTCOMES: Able to Share Feelings/Story, Expressed Gratitude EVALUATION: Outcomes Met DURATION OF CARE (mins): 30 Ori Colunga, 01/03/2022 5:14 PM Voalte Number: [phone] On-Call Pager Number: [phone] * Moshe Neley MD - 01/03/2022 4:47 PM CDT Prelminary cardiac MRI report. Final report to follow on Wednesday in [facility]. CONCLUSIONS: 1. Moderate left ventricular enlargement. LVEF = 25%. 2. Severe right ventricular enlargement. RVEF = 25%. 3. No late gadolinium enhancement to suggest inflammation, fibrosis or infarcti on. 4. Moderate tricuspid regurgitation. Mild mitral and aortic regurgitation. Ao rtic stenosis is noted. Severity is not assessed. 5. Large right and small left pleural effusion with atelectasis of the bilateral lung bases. Dictated by Moshe Neely MD. FINDINGS: LEFT VENTRICLE: Moderate left ventricular enlargement. The indexed left ventricular end-diastol ic volume = 121 mL/m2 (normal range for men = 57-105 mL/m2). The calculated le ft ventricular ejection fraction = 25% (normal range = 57-77%). LV stroke volu me = 74 mL. Normal left ventricular wall thickness with a maximum measurement o f 9 mm. Global hypokinesis. No intracardiac mass or thrombus. Normal myocardi al iron content. Normal myocardial nulling argues against cardiac amyloidosis. No myocardial late gadolinium enhancement to suggest inflammation, fibrosis or infarction. Normal global T1 mapping relaxation time of [] msec (normal range f or men = 922-1038 msec). RIGHT VENTRICLE: Severe right ventricular enlargement. The indexed right ventricular end-diastol ic volume = 144 mL/m2 (normal range for men = 61-121 mL/m2). The calculated rig ht ventricular ejection fraction = 25% (normal range = 51-72%). RV stroke volu me = 88 mL. No regional dyskinesis or aneurysmal outpouching to suggest arrhyth mogenic right ventricular cardiomyopathy. TAPSE = 15 mm. Qp:Qs = 1.0. ATRIA: Severe left and moderate right atrial enlargement. Intact atrial septum. VALVES: Mild aortic regurgitation (regurgitant fraction = 5%, regurgitant volume = 4 ml) . Aortic stenosis is noted. Severity is not assessed. Mild mitral regurgitation (regurgitant fraction = 12%, regurgitant volume = 9 ml ). Moderate tricuspid regurgitation (regurgitant fraction = 28%, regurgitant volume = 25 ml). PERICARDIUM: Normal pericardial thickness. No pericardial effusion. No pericardial late jaime olinium enhancement. VESSELS: Normal caliber ascending aorta (32 mm x 31 mm). Normal caliber descending aorta without coarctation. Conventional [id number] arch anatomy. Normal caliber main p ulmonary artery. Conventional pulmonary venous anatomy. EXTRA CARDIAC FINDINGS: Large right and small left pleural effusion with atelectasis of the bilateral wanda ng bases. * Maxine Song MD - 01/03/2022 3:38 PM CDT Images from the original note were not included. Cardiac Heart Failure/Transplant Progress Note This hospital encounter may have been performed with modifications including crockett ited or no face to face contact as noted in physical exam below due to concerns about potential exposure to COVID-19 in an effort to minimize patient and provid er risk. Hospital Day: 3 Chief complaint: Shortness of Air Clinical summary: Mr. Faye is a 71-year-old male with hypertension, hyperlipidemia, type 2 diabet es mellitus, COVID-19 infection in 09/2021 (not hospitalized), and prostate cance r s/p prostatectomy who initially presented [place] [facility] with shortness of corey ath and LE swelling on 12/15/2021 who is now transferred here from [facility] in [place] for advanced HF therapy evaluation. In September 2021, he was infected with COVID-19 but did not require hospitalizati on. His symptoms included mild fatigue and loss of taste with no fever. He the n successfully underwent left total knee arthroplasty in October 2021. In the p ostoperative period he started to develop worsening shortness of breath and LE e donnie. Although he lives in [place], [place] he was visiting his son in [facility] and ended up being admitted at the [facility] on 12/03/2021. Echo [place] wed LVEF 10%, right pleural effusion (transudative on thoracentesis) with CLAYTON. Sarah freed was diuresed and started on dobutamine infusion which improved symptoms and re sulted in 10 pound weight loss. He then developed AFIB and was started on antico agulation. Due to poor cardiac function he was transferred to [facility] for ischemic work-up. LHC showed no significant disease. During this hospitalization he went into sustained VT requiring electrical cardioversion and initiation of amiodarone infusion and then PO. Attempted to start afterload red uction with lisinopril and spironolactone which led to CLAYTON and hyperkalemia. Giv en the continued requirement of inotrope and inability to optimize GDMT, he was transferred for evaluation of advanced HF therapies. Cabezas events during this stay: 01/01: RHC ; LVAD evaluation CHANGES IN THE PAST 24 HOURS: Clinical: He had 5 L of urine output yesterday with IV Lasix, he has been weaned off dobut amine, he feels well. He has no specific complaints/concerns at this time. Labs/tests/procedures: Na 129 Echo 01/01/22: IMPRESSION 1. Severe left ventricular dilatation. LVEDVI= 130 ml/m2. 2. Severely reduced left ventricular systolic function, with a calculated ejec tion fraction of 24%. 3. Global hypokinesis with some regional variability. 4. Severe right ventricular dilatation with severely reduced systolic function . 5. Mild aortic stenosis. 6. Mild MR. [id number] TR. 7. Estimated central venous and PA pressures are elevated. No previous study available for comparison EKG/Telemetry: Sinus w LBBB. No significant ectopy. ASSESSMENT & PLAN: Active Problems: Cardiogenic shock (HCC) Benign essential hypertension Mixed hyperlipidemia Primary insomnia Prostate cancer (HCC) COVID-19 virus infection Obesity Type 2 diabetes mellitus (HCC) Heart failure with reduced ejection fraction (HCC) Elevated liver enzymes Acute kidney injury (HCC) Atrial fibrillation (HCC) Hyponatremia 71 yo M with newly diagnosed NICM, w prior COVID 19 infection, presenting with c ardiogenic shock and decompensated HF. RHC with optimization, weaned off Dobuta mine since last evening. Will continue to titrate GDMT while evaluating for LVA D. [place] out today and transition to PO diuretics tomorrow. TTF. #Acute Systolic/Diastolic HF and Cardiogenic Shock, SCAI C -NYHA class III, ACC AHA C -Echo findings as above; no significant valvular abnormalities; TAPSE 15; RV mod erately-severely dilated -Cr 1.4 > 1.3 > 1.0; C02 23 > 23; BUN 20 > 15 -[facility] OSH records w/o o significant obstructive CAD -[facility]: CVP 3 (personaly 6-7); PA 32/16; PAD 16; does not wedge; Kaela CI 3.1; SVR 658 (off inotropes); Baldev 5.3; CVP: W (in lab) = 0.6 -He has been weaned off dobutamine, started on sacubitril/valsartan, empaglifloz in, we will look to add an MRA and possibly even a beta-martinez. -He does have some RV dysfunction on echo, will get MRI to further evaluate this ##Left bundle branch block Have a wide left bundle branch block with QRS 150 ms. 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 Continue to monitor. On therapeutic anticoagulation. -Discontinued off admission digoxin -Plan to continue heparin infusion and will continue gtt pending additional proc edures -Plan to continue Amiodarone 200 mg daily # Euthyroid Sick Syndrome -Thyroid function studies reviewed # Acute Kidney, Resolved # Hyponatremia -Improving # Hypertension # DMII. SSI. SGLT2i. # Hyperlipidemia -Unclear of his home medications which will be procured from his in the [facility] [place] -Check lipid panel and A1c DVT Ppx: Heparin infusion I have performed an independent review of the following: EKG Telemetry Echocardiogram CXR I have discussed the case with the following: Another healthcare provider Treatment goals, progress and next steps, as above, were discussed and mutually agreed upon with the patient/family. OBJECTIVE: Vitals: BP: 103/66 Pulse: 89 Temp: 36.9 C (98.4 F) Resp: 18 SpO2: 100 % Patient Vitals for the past 96 hrs: Weight 01/03/22 0537 119.3 kg (263 lb 1.6 oz) 01/03/22 0253 119.3 kg (263 lb 1.6 oz) 01/02/22 0626 114.8 kg (253 lb 1.4 oz) 01/01/22 0445 126.2 kg (278 lb 3.5 oz) 12/31/21 1935 128.8 kg (283 lb 14.4 oz) No intake or output data in the 24 hours ending 01/03/22 1540 VILLA Risk Index for in-hospital mortality Age: 71 y.o. BP: 103/66 Pulse: 89 VILLA Risk Index Score: 45 <20 is low risk 20-30 is Intermediate >30 is high risk Physical Exam Constitutional: General: He is not in acute distress. Appearance: Normal appearance. He is obese. He is not ill-appearing, toxic-ap pearing or diaphoretic. HENT: Head: Normocephalic and atraumatic. Mouth/Throat: Mouth: Mucous membranes are moist. Cardiovascular: Rate and Rhythm: Normal rate and regular rhythm. Abdominal: General: Abdomen is flat. Bowel sounds are normal. There is no distension. Palpations: Abdomen is soft. Tenderness: There is no abdominal tenderness. Musculoskeletal: General: No swelling or tenderness. Right lower leg: No edema. Left lower leg: No edema. Skin: General: Skin is warm. Neurological: Mental Status: He is alert. Psychiatric: Mood and Affect: Mood normal. Thought Content: Thought content normal. Judgment: Judgment normal. Scheduled medications: amiodarone 200 mg Oral Daily aspirin 81 mg Oral Daily atorvastatin 20 mg Oral Nightly empagliflozin 10 mg Oral Daily fluticasone propionate 1 spray Each Nare Daily insulin lispro 1-6 Units Subcutaneous 4 times daily before meals and nightl y levothyroxine 25 mcg Oral Daily sacubitriL-valsartan 1 tablet Oral BID [MAR Hold] spironolactone 12.5 mg Oral Daily tamsulosin 0.4 mg Oral Daily Infusion medications: heparin 13.8 Units/kg/hr (01/03/22 1417) Cabezas labs: Recent Labs 12/31/21204301/01/22 0025 01/01/22 1450 01/01/22 2342 01/02/22 0627 01/02/22 1734 01/03/22 032 WBC 6.71 6.28 -- -- 9.03 -- 7.54 HGB 11.0* 11.4* -- -- 11.4* -- 10.8* HCT 34* 35* -- -- 35* -- 34* PLT 215 219 -- 230 225 252 231 INR 1.3* -- 1.4* -- -- -- -- Recent Labs 12/31/21204301/01/22 0025 01/02/22 0627 01/02/22 2358 01/03/22 0322 NA 121* 122* 126* -- 129* K 4.2 4.3 3.5 -- 3.9 CO2 21 23 23 -- 22 BUN 18 20 15 -- 12 CREAT 1.40* | 1.40* 1.30 1.00 1.00 1.00 GLU 111* 111* 106* -- 109* MG 1.60 | 1.60 -- -- -- -- Most Recent Result within the last 7 days Lab Units 01/03/22 0322 01/02/22 0627 01/01/22 0025 ALKALINE PHOSPHATASE U/L 108 106 115 PROTEIN TOTAL SERUM g/dL 5.3* 5.6* 6.0 ALBUMIN g/dL 3.2* 3.2* 3.7 ALANINE AMINOTRANSFERASE U/L 46 50* 76* ASPARTATE AMINOTRANSFERASE U/L 15 14 18 No lab components to display Lab Results Component Value Date HGBA1C 6.9 (H) 01/01/2022 GLU 109 (H) 01/03/2022 GLU 106 (H) 01/02/2022 GLU 111 (H) 01/01/2022 No results found for: TACROLIMUS * Ronni Gu MD - 01/03/2022 9:[address] chest did no show any concerning underlying pulmonary pathology other than ef fusions and associated relaxed atelectasis. Based on that, the patient has low r isk for pulmonary complication post op. Will sign off pulmonary service. Please call us back if you need further info. Ronni Gu MD * Hamzah Goode NP - 01/02/2022 8:53 AM CDT [facility] GASTROINTESTINAL PROGRESS NOTE Subjective: No acute events overnight. Pt had heart cath and is currently in ICU for cardiac monitoring via [place] Emelina. Denies any abdominal pain, nausea or vomiting. Objective: BP 116/62 | Pulse 65 | Temp 36.5 C (97.7 F) (Core) | Resp 21 | Ht 1.854 m (6' 1") | Wt 114.8 kg (253 lb 1.4 oz) | SpO2 97% | BMI 33.39 kg/m Med List: Scheduled Meds: amiodarone 200 mg Oral Daily aspirin 81 mg Oral Daily atorvastatin 20 mg Oral Nightly empagliflozin 10 mg Oral Daily finasteride 5 mg Oral Daily fluticasone propionate 1 spray Each Nare Daily insulin lispro 1-6 Units Subcutaneous 4 times daily before meals and nightl y levothyroxine 25 mcg Oral Daily sacubitriL-valsartan 1 tablet Oral BID spironolactone 12.5 mg Oral Daily tamsulosin 0.4 mg Oral Daily Continuous Infusions: heparin 15.8 Units/kg/hr (01/02/22527) PRN Meds:.acetaminophen OR acetaminophen, acetaminophen OR acetaminophen , aluminum-magnesium hydroxide-simethicone, cyclobenzaprine, dextrose 50% OR dextrose 10%, docusate sodium, glucagon OR glucagon, glucose, heparin (porc ine) OR heparin (porcine), magnesium sulfate, miconazole nitrate, nitroglyce rin, polyethylene glycol, potassium chloride OR potassium bicarb-citric acid OR potassium chloride in water, potassium chloride OR potassium bicarb- citric acid OR potassium chloride in water, zolpidem LAB RESULTS: Last CBC: Most Recent Result within the last 7 days Lab Units 01/02/22 0627 WBC TH/uL 9.03 HEMOGLOBIN g/dL 11.4* HEMATOCRIT % 35* PLATELET COUNT Th/uL 225 Last BMP: Most Recent Result within the last 7 days Lab Units 01/02/22 0627 SODIUM mEq/L 126* POTASSIUM mEq/L 3.5 CARBON DIOXIDE mEq/L 23 BLOOD UREA NITROGEN mg/dL 15 CREATININE mg/dL 1.00 CALCIUM mg/dL 8.6 Last CMP: Most Recent Result within the last 7 days Lab Units 01/02/22 0627 SODIUM mEq/L 126* POTASSIUM mEq/L 3.5 CARBON DIOXIDE mEq/L 23 BLOOD UREA NITROGEN mg/dL 15 CREATININE mg/dL 1.00 CALCIUM mg/dL 8.6 PROTEIN TOTAL SERUM g/dL 5.6* ALKALINE PHOSPHATASE U/L 106 ALANINE AMINOTRANSFERASE U/L 50* ASPARTATE AMINOTRANSFERASE U/L 14 Last Lipase: No lab components to display Last Protime/INR: Most Recent Result within the last 7 days Lab Units 01/01/22 1450 PROTIME Sec 16.7* INR 1.4* RADIOLOGY RESULTS: US Abdomen complete Result Date: 01/01/2022 Gallbladder wall thickening with no sonographic Solorzano sign and no gallstones identified. Cannot exclude acalculous cholecystitis. READING SITE: [facility] THIS DOCUMENT HAS BEEN ELECTRONICALLY SIGNED BY RAVEN CEDENO MD XR Chest single view frontal Result Date: 01/01/2022 1. Right greater than left perihilar and bibasilar heterogeneous opacities, likely representing moderate interstitial pulmonary edema. Superimposed infection or aspiration is not excluded. 2. Small right greater than left pleural effusions. 3. Cardiomegaly. ATTESTATION STATEMENT: The Staff Radiologist has personally reviewed the images and dictated, reviewed, or edited the final report. [facility] Chest post line drain or airway placement Result Date: 01/01/2022 1. Support apparatus as described. No pneumothorax. 2. Similar to slightly worsening of pulmonary edema and dense basilar atelectasis. Superimposed pneumonia is not excluded. 3. Increased or redistributed right-sided layering pleural effusion with intrafissural fluid. Similar small left pleural effusion. READING SITE: [facility] Echo Complete with Doppler and Color Flow Result Date: 01/01/2022 1. Severe left ventricular dilatation. LVEDVI= 130 ml/m2. 2. Severely reduced left ventricular systolic function, with a calculated ejec tion fraction of 24%. 3. Global hypokinesis with some regional variability. 4. Severe right ventricular dilatation with severely reduced systolic function . 5. Mild aortic stenosis. 6. Mild MR. Njfz-yx-hrpkvckt TR. 7. Estimated central venous and PA pressures are elevated. No previous study available for comparison. Dr. Justin Powers MD (Electronically Signed) Final Date: 01 January 2022 11:27 Physical Exam: General: awake, alert, NAD HENT: normocephalic, atraumatic, mucus membranes moist, right neck [place] Emelina Eyes: PERRL, anicteric Neuro: AOx3, ambulatory with assist CV: HRRR S1S2, no pedal edema Resp: CTA, unlabored respirations, on RA GI: abdomen is soft, ND, NT, + bowel sounds Skin: warm, dry, no jaundice Endoscopy Results: Colonoscopy 12/19/2018 colonic polyps. 5 year recall EGD 04/25/2016 Grade A esophagitis Assessment/Plan: Mr. Anabella Faye is a pleasant 71-year-old male currently admitted with acute on chronic heart failure and LVAD evaluation. GI consult as part of this evalua tion *Colorectal screening -Colonoscopy report reviewed and he does have history of colonic polyps. He is o n a 5 year recall. Last colonoscopy 12/2018 *Hepatobiliary screening *Elevated ALT *Mild hyperbilirubinemia 1.4 Suspect mild ALT elevation and hyperbilirubinemia secondary to congestive hepato diego. -Us revealed mild GB thickening otherwise was unremarkable. -Acute viral hepatitis panel non-reactive -Recommend Hep A and B vaccine -No further work up is needed *Upper GI *History of GRADE esophagitis. No red flag symptoms such as unintentional weight loss, dysphagia or persistent GERD that warrants upper endoscopy *Iron deficiency After reviewing colonoscopy records along with previous iron studies it does not appear that the patient had iron deficiency during his previous endoscopies. -Recommend repeat EGD and colonoscopy for further evaluation of low serum iron -This can be done in the outpatient setting or if patient is still hospitalized next week can proceed with them at that time. -If the patient is to remain in the hospital for endoscopy please notify GI on S unday. He will need to be on a clear liquid diet the day prior to the endoscopy . GI will sign off Thank you for allowing us to participate in this pt's care. Please feel free to call with and further questions or concerns. This treatment plan was discussed w sanjuanita Guillen. Kush Goode APRN VOALTE Electronically signed by Hamzah Goode NP 01/02/2022 9:13 AM * Maxine Song MD - 01/02/2022 8:50 AM CDT Images from the original note were not included. Cardiac Heart Failure/Transplant Progress Note This hospital encounter may have been performed with modifications including crockett ited or no face to face contact as noted in physical exam below due to concerns about potential exposure to COVID-19 in an effort to minimize patient and provid er risk. Hospital Day: 2 Chief complaint: Shortness of Air Clinical summary: Mr. Faye is a 71-year-old male with hypertension, hyperlipidemia, type 2 diabet es mellitus, COVID-19 infection in 09/2021 (not hospitalized), and prostate cance r s/p prostatectomy who initially presented to [facility] with shortness of corey ath and LE swelling on 12/15/2021 who is now transferred here from [facility] in [place] for advanced HF therapy evaluation. In September 2021, he was infected with COVID-19 but did not require hospitalizati on. His symptoms included mild fatigue and loss of taste with no fever. He the n successfully underwent left total knee arthroplasty in October 2021. In the p ostoperative period he started to develop worsening shortness of breath and LE e donnie. Although he lives in [place], [place] he was visiting his son in [facility] and ended up being admitted at the [facility] on 12/03/2021. Echo [place] wed LVEF 10%, right pleural effusion (transudative on thoracentesis) with CLAYTON. Sarah freed was diuresed and started on dobutamine infusion which improved symptoms and re sulted in 10 pound weight loss. He then developed AFIB and was started on antico agulation. Due to poor cardiac function he was transferred to [facility] for ischemic work-up. LHC showed no significant disease. During this hospitalization he went into sustained VT requiring electrical cardioversion and initiation of amiodarone infusion and then PO. Attempted to start afterload red uction with lisinopril and spironolactone which led to CLAYTON and hyperkalemia. Giv en the continued requirement of inotrope and inability to optimize GDMT, he was transferred for evaluation of advanced HF therapies. Cabezas events during this stay: 01/01: RHC ; LVAD evaluation CHANGES IN THE PAST 24 HOURS: Clinical: Overnight, no acute issues. Weaned off dobutamine uneventfully w/o issues. Diu resed well with IV Lasix. No specific complaints/concerns at this time. Labs/tests/procedures: Na 122 > 126; K 4.3 > 3.5; C02 23 > 23; Cr 1.4 > 1.3 > 1.0; Mag 1.6; LV 1.2 ALT 76 > 50; AST 18 > 14; TB 1.4 > 1.4 WBC 6 > 9; Hemoglobin 11.4 > 11.4; Plt 230 > 225 Echo 01/01/22: IMPRESSION 1. Severe left ventricular dilatation. LVEDVI= 130 ml/m2. 2. Severely reduced left ventricular systolic function, with a calculated ejec tion fraction of 24%. 3. Global hypokinesis with some regional variability. 4. Severe right ventricular dilatation with severely reduced systolic function . 5. Mild aortic stenosis. 6. Mild MR. Ajta-qz-hffckkge TR. 7. Estimated central venous and PA pressures are elevated. No previous study available for comparison EKG/Telemetry: Sinus w LBBB. No significant ectopy. ASSESSMENT & PLAN: Active Problems: Cardiogenic shock (HCC) Benign essential hypertension Mixed hyperlipidemia Primary insomnia Prostate cancer (HCC) COVID-19 virus infection Obesity Type 2 diabetes mellitus (HCC) Heart failure with reduced ejection fraction (HCC) Elevated liver enzymes Acute kidney injury (HCC) Atrial fibrillation (HCC) Hyponatremia 71 yo M with newly diagnosed NICM, w prior COVID 19 infection, presenting with c ardiogenic shock and decompensated HF. RHC with optimization, weaned off Dobuta mine since last evening. Will continue to titrate GDMT while evaluating for LVA D. [place] out today and transition to PO diuretics tomorrow. TTF. #Acute Systolic/Diastolic HF and Cardiogenic Shock, SCAI C -NYHA class III, ACC AHA C -Echo findings as above; no significant valvular abnormalities; TAPSE 15; RV mod erately-severely dilated -Cr 1.4 > 1.3 > 1.0; C02 23 > 23; BUN 20 > 15 -C OSH records w/o o significant obstructive CAD -RHC: CVP 3 (personaly 6-7); PA 32/16; PAD 16; does not wedge; Kaela CI 3.1; SVR 658 (off inotropes); Baldev 5.3; CVP: W (in lab) = 0.6 -Plan to continue low-dose Entresto 24-26 mg PO BID -Plan to continue SGLT2i -Plan to re-trial low-dose Spironolactone today re: hypokalemia; prior issue w/ hyperkalemia at OSH > optimistic that improved hemodynamics as well as addition of SGLT2i will attenuate further hyperkalemia -Plan for low-dose Coreg Wednesday or Wednesday -Plan to continue holding diuretics and will allow him to auto-diurese > transition to Torsemide 10 mg daily tomorrow -Will discuss cMRI early next week -No indication for iron repletion -No device at this time; LBBB but first requires optimization of GDMT -LVAD evaluation ongoing -Continue 2 L fluid restriction and sodium restricted diet -K > 4 and Mag > 2 ##pAF w [id number] = 4. Continue to monitor. On therapeutic anticoagulation. -Discontinued off admission digoxin -Plan to continue heparin infusion and will continue gtt pending additional proc edures -Plan to continue Amiodarone 200 mg daily # Euthyroid Sick Syndrome -Thyroid function studies reviewed # Acute Kidney, Resolved # Hyponatremia -Improving # Hypertension # DMII. SSI. SGLT2i. # Hyperlipidemia -Unclear of his home medications which will be procured from his in the [facility] [place] -Check lipid panel and A1c # Prostate Cancer s/p Prostatectomy -Had brief episode of hematuria during admission which resolved -Underwent a 7-day course of vancomycin that was stopped on 12/31 due to possible UTI -Plan to continue tamsulosin # COVID19 Infection 09/2021 -Currently has loss of taste from his infection in 09/2021 -Re-tested positive, but will ask for cycle length #Social -Supported by his and two other children who live in [facility] -No history of tobacco or any other recreational drug abuse -Currently no issues with alcohol abuse -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 I have reviewed and edited the note as needed and agree with the information outlined by Dr. Joy shelley with the following additional remarks: He has successfully been weaned off dobutamine. We are slowly increasing guidel ine directed medical therapy. He does have a severely enlarged and dysfunctiona l right ventricle on echo, his hemodynamics with diuresis however look reasonabl e. We will get a cardiac MRI to further assess his RV function. We are beginni ng a destination therapy LVAD evaluation. I have performed an independent review of the following: EKG Telemetry Echocardiogram CXR I have discussed the case with the following: Another healthcare provider Treatment goals, progress and next steps, as above, were discussed and mutually agreed upon with the patient/family. OBJECTIVE: Vitals: BP: 116/62 Pulse: 65 Temp: 36.5 C (97.7 F) Resp: 21 SpO2: 97 % Patient Vitals for the past 96 hrs: Weight 01/02/22 0626 114.8 kg (253 lb 1.4 oz) 01/01/22 0445 126.2 kg (278 lb 3.5 oz) 12/31/21 1935 128.8 kg (283 lb 14.4 oz) Intake/Output Summary (Last 24 hours) at 01/02/2022 0850 Last data filed at 01/02/2022 0626 Gross per 24 hour Intake 791.32 ml Output 5000 ml Net -4208.68 ml VILLA Risk Index for in-hospital mortality Age: 71 y.o. BP: 116/62 Pulse: 65 VILLA Risk Index Score: 29 <20 is low risk 20-30 is Intermediate >30 is high risk Physical Exam Constitutional: General: He is not in acute distress. Appearance: Normal appearance. He is obese. He is not ill-appearing, toxic-ap pearing or diaphoretic. HENT: Head: Normocephalic and atraumatic. Mouth/Throat: Mouth: Mucous membranes are moist. Cardiovascular: Rate and Rhythm: Normal rate and regular rhythm. Abdominal: General: Abdomen is flat. Bowel sounds are normal. There is no distension. Palpations: Abdomen is soft. Tenderness: There is no abdominal tenderness. Musculoskeletal: General: No swelling or tenderness. Right lower leg: No edema. Left lower leg: No edema. Skin: General: Skin is warm. Neurological: Mental Status: He is alert. Psychiatric: Mood and Affect: Mood normal. Thought Content: Thought content normal. Judgment: Judgment normal. Scheduled medications: amiodarone 200 mg Oral Daily aspirin 81 mg Oral Daily atorvastatin 20 mg Oral Nightly empagliflozin 10 mg Oral Daily finasteride 5 mg Oral Daily fluticasone propionate 1 spray Each Nare Daily insulin lispro 1-6 Units Subcutaneous 4 times daily before meals and nightl y levothyroxine 25 mcg Oral Daily sacubitriL-valsartan 1 tablet Oral BID spironolactone 12.5 mg Oral Daily tamsulosin 0.4 mg Oral Daily Infusion medications: heparin 15.8 Units/kg/hr (01/02/22 0528) Cabezas labs: Recent Labs 12/31/21204301/01/22 0025 01/01/22 1450 01/01/22 2342 01/02/22 0627 WBC 6.71 6.28 -- -- 9.03 HGB 11.0* 11.4* -- -- 11.4* HCT 34* 35* -- -- 35* PLT 215 219 -- 230 225 INR 1.3* -- 1.4* -- -- Recent Labs 12/31/21204301/01/22 00201/02/22626 NA 121* 122* 126* K 4.2 4.3 3.5 CO2 21 23 23 BUN 18 20 15 CREAT 1.40* | 1.40* 1.30 1.00 GLU 111* 111* 106* MG 1.60 | 1.60 -- -- Most Recent Result within the last 7 days Lab Units 01/02/2262601/01/222412/31/212043 ALKALINE PHOSPHATASE U/L 106 115 111 PROTEIN TOTAL SERUM g/dL 5.6* 6.0 6.2 ALBUMIN g/dL 3.2* 3.7 3.6 ALANINE AMINOTRANSFERASE U/L 50* 76* 77* ASPARTATE AMINOTRANSFERASE U/L 14 18 20 No lab components to display Lab Results Component Value Date HGBA1C 6.9 (H) 01/01/2022 GLU 106 (H) 01/02/2022 GLU 111 (H) 01/01/2022 GLU 111 (H) 12/31/2021 No results found for: TACROLIMUS * Salma Rosales MD - 01/02/2022 7:56 AM CDT [facility] NEPHROLOGY FOLLOW-UP NOTE NAME: Anabella Faye CPI: [id number] AGE: 71 y.o. : 1950 ADMISSION DATE: 12/31/2021 PRIMARY CARE PROVIDER: No primary care provider on file. HISTORY OF PRESENT ILLNESS: 71 y.o. male with baseline creatinine of unknown presents to [facility] from OSH for LV AD evaluation. He has a past medical history of atrial fibrillation, prostate ca ncer s/p prostatectomy, DMT2, HLD, alcohol use, COVID infection in 09/2021, and r ecent diagnosis of HF. [facility] revealed his HF etiology as non-ischemic. It is belie alexia that this may be secondary to COVID infection. He denies personal or family history of kidney disease. He denies difficulty wit h urination. He does use OTC NSAIDs for pain control at home. 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 24-hour urine protein is in process. Last 7 Days Creatinine trend: 1.4> 1.3> 1.0 Baseline Creatinine: unknown, but outside records under media tab reveal Cr read ings of 1.0-1.3 within the last month PAST MEDICAL HISTORY: Past Medical History: Diagnosis Date Atrial fibrillation (HCC) Cancer (HCC) Cardiomyopathy (HCC) CHF (congestive heart failure) (HCC) Diabetes mellitus (HCC) PAST SURGICAL HISTORY: Past Surgical History: Procedure Laterality Date CATHETERIZATION, HEART, RIGHT N/A 01/01/2022 Procedure: RIGHT HEART CATHETERIZATION; Surgeon: Mikel Goff MD; Locat ion: [facility] CV LAB; Service: Cardiology - Cardiac Intervention Hemodynamics Periph eral Structural; Laterality: N/A; PROSTATECTOMY TOTAL KNEE ARTHROPLASTY SOCIAL HISTORY: Social History Socioeconomic History Marital status: Tobacco Use Smoking status: Never Smoker Smokeless tobacco: Never Used Substance and Sexual Activity Alcohol use: Not Currently Drug use: Not Currently Sexual activity: Not Currently FAMILY HISTORY: No family history on file. ALLERGIES: Patient has no known allergies. PRIOR TO ADMISSION MEDICATIONS: Medications Prior to Admission Medication Sig Dispense Refill Last Dose cyclobenzaprine (FLEXERIL) 10 MG tablet Take 1 tablet by mouth. 12/31/2021 at Unknown time furosemide (LASIX) 80 MG tablet Take 1 tablet by mouth. 12/31/2021 at Unkno wn time hydrocodone-chlorpheniramine 10-8 mg/5 mL (TUSSIONEX PENNKINETIC) ER suspens ion Take 5 mL by mouth nightly as needed. 12/31/2021 at Unknown time losartan-hydrochlorothiazide (HYZAAR) 50-12.5 mg per tablet Take 1 tablet by mouth. 12/31/2021 at Unknown time meloxicam (MOBIC) 15 MG tablet Take 1 tablet by mouth. 12/31/2021 at Unknow n time methocarbamoL (ROBAXIN) 500 MG tablet Take 1 tablet by mouth. 12/31/2021 at Unknown time NIFEdipine (PROCARDIA-XL, ADALAT CC) 30 MG 24 hr tablet 1 tablet on an empty stomach 12/31/2021 at Unknown time predniSONE (DELTASONE) 50 MG tablet Take 50 mg by mouth. 12/31/2021 at Unkn own time terazosin (HYTRIN) 2 MG capsule 1 capsule at bedtime 12/31/2021 at Unknown time zolpidem (AMBIEN CR) 12.5 MG CR tablet 1 tablet at bedtime as needed 2021 at Unknown time zolpidem (AMBIEN) 10 mg tablet 1 tablet at bedtime as needed 12/31/2021 at Unknown time lisinopriL (PRINIVIL,ZESTRIL) 10 MG tablet Take 10 mg by mouth daily. 12/31 at Unknown time simvastatin (ZOCOR) 10 MG tablet Take 10 mg by mouth. tramadoL (ULTRAM) 50 mg tablet Take 100 mg by mouth every 6 (six) hours as n eeded. 12/31/2021 at Unknown time CURRENT MEDICATIONS: Current Facility-Administered Medications Medication Dose Route Frequency Provider Last Rate Last Admin acetaminophen (TYLENOL) tablet 325-650 mg 325-650 mg Oral Q6H PRN Agnes Unger MD 650 mg at 01/02/22 0004 Or acetaminophen (TYLENOL) suppository 325-650 mg 325-650 mg Rectal Q6H PRN Hemanth Unger MD acetaminophen (TYLENOL) tablet 325-650 mg 325-650 mg Oral Q6H PRN Agnes Unger MD 650 mg at 01/01/22 1444 Or acetaminophen (TYLENOL) suppository 325-650 mg 325-650 mg Rectal Q6H PRN Hemanth Unger MD aluminum-magnesium hydroxide-simethicone (MAALOX PLUS) 400-400-40 mg/5 mL martinez spension 15 mL 15 mL Oral Q4H PRN Agnes Unger MD amiodarone (CORDARONE) tablet 200 mg 200 mg Oral Daily Randal Osei 200 mg at 01/01/22 1320 aspirin EC tablet 81 mg 81 mg Oral Daily Agnes Unger MD 81 mg at 0 01/01/22 1320 atorvastatin (LIPITOR) tablet 20 mg 20 mg Oral Nightly Randal Osei 20 mg at 01/01/222010 cyclobenzaprine (FLEXERIL) tablet 10 mg 10 mg Oral TID PRN Agnes shelley MD 10 mg at 01/02/223 dextrose (D50W) 50 % injection 25-50 mL 25-50 mL Intravenous PRN Agnes medina MD Or dextrose 10% (D10W) bolus 125-250 mL 125-250 mL Intravenous PRN Agnes goldstein MD docusate sodium (COLACE) capsule 100 mg 100 mg Oral BID PRN Agnes jeter MD empagliflozin (JARDIANCE) tablet 10 mg 10 mg Oral Daily Agnes Unger MD finasteride (PROSCAR) tablet 5 mg 5 mg Oral Daily Agnes Unger MD 5 mg at 01/01/22 132 fluticasone propionate (FLONASE) 50 mcg/actuation nasal spray 1 spray 1 spr ay Each Nare Daily Agnes Unger MD furosemide (LASIX) injection 80 mg 80 mg Intravenous BID Agnes Unger MD 80 mg at 01/01/222010 glucagon (GLUCAGEN) injection 1 mg 1 mg Intramuscular PRN Agnes Unger MD Or glucagon (GLUCAGEN) injection 1 mg 1 mg Subcutaneous PRN Agnes Unger MD glucose chewable tablet 16-32 g 16-32 g Oral PRN Agnes Unger MD heparin (porcine) 1,000 unit/mL injection 5,000 Units 40 Units/kg Intraveno us PRN Agnes Unger MD Or heparin (porcine) 1,000 unit/mL injection 10,000 Units 10,000 Units Intrave nous PRN Agnes Unger MD heparin 100 units/mL in sodium chloride 0.45% infusion 2-30 Units/kg/hr Int ravenous Continuous Agnes Unger MD 19.9 mL/hr at 01/02/2228 15.8 Units /kg/hr at 01/02/22527 insulin lispro (HumaLOG) injection 1-6 Units 1-6 Units Subcutaneous 4 times daily before meals and nightly Agnes Unger MD levothyroxine (SYNTHROID, LEVOTHROID) tablet 25 mcg 25 mcg Oral Daily Sandy Keen MD 25 mcg at 01/02/22 0627 magnesium sulfate IVPB 4 gram (premix) 4 g Intravenous PRN Agnes shelley MD miconazole nitrate (ALOE VESTA) 2 % ointment Topical TID PRN Agnes chappell MD nitroglycerin (NITROSTAT) SL tablet 0.4 mg 0.4 mg Sublingual Q5 Min PRN Lazrao Unger MD polyethylene glycol (GLYCOLAX) packet 17 g 17 g Oral Daily PRN Agnes courtney MD potassium chloride (KLOR-CON) CR tablet 20 mEq 20 mEq Oral PRN Agnes courtney MD Or potassium bicarb-citric acid (EFFER-K) effervescent tablet 20 mEq 20 mEq Or al PRN Agnes Unger MD Or potassium chloride 10 mEq in 50 mL IVPB 20 mEq Intravenous PRN Agnes courtney MD potassium chloride (KLOR-CON) CR tablet 20 mEq 20 mEq Oral PRN Agnes courtney MD Or potassium bicarb-citric acid (EFFER-K) effervescent tablet 20 mEq 20 mEq Or al PRN Agnes Unger MD Or potassium chloride 20 mEq in 100 mL IVPB 20 mEq Intravenous PRN Agnes goldstein MD sacubitriL-valsartan (ENTRESTO) 24-26 mg per tablet 1 tablet 1 tablet Oral BID Agnes Unger MD 1 tablet at 01/01/222010 tamsulosin (FLOMAX) 24 hr capsule 0.4 mg 0.4 mg Oral Daily Agnes shelley MD 0.4 mg at 01/01/22 1320 zolpidem (AMBIEN) tablet 5 mg 5 mg Oral Nightly PRN Agnes Unger MD FAMILY HISTORY: No family history on file. SOCIAL HISTORY: Social History Socioeconomic History Marital status: Tobacco Use Smoking status: Never Smoker Smokeless tobacco: Never Used Substance and Sexual Activity Alcohol use: Not Currently Drug use: Not Currently Sexual activity: Not Currently REVIEW OF SYSTEMS: Negative except as above. PHYSICAL EXAM: BP 116/62 | Pulse 65 | Temp 36.5 C (97.7 F) (Core) | Resp 21 | Ht 1.854 m (6' 1") | Wt 114.8 kg (253 lb 1.4 oz) | SpO2 97% | BMI 33.39 kg/m General Appearance: Alert, cooperative, no distress, appears stated age Head: Normocephalic, without obvious abnormality, atraumatic Eyes: Non-icteric sclera Neck: Supple, symmetrical, trachea midline, JVD present Lungs: Crackles to auscultation in the bases bilaterally, respirations unlab ored Heart: Regular rate and rhythm, S1 and S2 normal, no murmur, rub or gallop Abdomen: Soft, non-tender, bowel sounds active Extremities: Extremities normal, atraumatic, no cyanosis, BLE pitting edema 2+ Psych: Normal mood and affect Neurologic: Alert and oriented x3 DIALYSIS ACCESS: N/A Intake/Output last 24 hours: Intake/Output Summary (Last 24 hours) at 01/02/2022 0756 Last data filed at 01/02/2022 0626 Gross per 24 hour Intake 791.32 ml Output 5000 ml Net -4208.68 ml Weight on Admission: Weight: 128.8 kg (283 lb 14.4 oz) Weight Trend: Vitals: 12/31/21 1935 01/01/22 0445 01/02/22 0626 Weight: 128.8 kg (283 lb 14.4 oz) 126.2 kg (278 lb 3.5 oz) 114.8 kg (253 lb 1.4 oz) UA: yellow, specific gravity 1.008, pH 5.5, otherwise negative Imaging: US abdomen complete in process Labs & Imaging Data reviewed Medications reviewed ASSESSMENT/PLAN: 71 y.o. male presents to [facility] for LVAD evaluation. Nephrology consulted for LVAD evaluation. Acute kidney injury: Non-oliguric Baseline Creatinine unknown, but Cr 1.0-1.3 in review of outside records. Electrolytes Na 126, K 3.5, Cl 97 Acid base CO2 23 Volume Hypervolemic -Diuresis per primary team -Excellent urine output 5L yesterday and Cr improved, which fits with cardiorena l syndrome. Other renal recommendation: Avoid nephrotoxic agents/ IV contrast/ ACEi/ ARB's Keep MAP>65 to keep adequate renal perfusion Does medications per pharmacy The right kidney was normal on US abdomen complete. The left kidney was not visu alized. Images reviewed personally by Dr. Langston. 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 Patient ability to proceed with LVAD depen dent 24-hour urine protein results. Staff: Dr. Langston Attending physician attestation to follow. Salma Rosales M.D. Radiology PGY-1 Salma Rosales 01/02/2022 7:56 AM Associated attestation - Ginette Langston MD - 01/02/2022 5:24 PM CDT Nephrology Staff Addendum: I was physically present during the cabezas portion of the service provided by Dr. Qian strange and I participated in the management of the patient. I have personally revi ewed the patient's pertinent notes, labs, imaging & medical studies, hemodynamic data, fluid balance, I/Os and medications. CLAYTON resolved with diuresis, c/w CRS. I have reviewed the renal ultrasound, and my personal review of the imaging shows normal right kidney, congenital absence of left. 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 Pending additional studies not yet resuled, no nephrology contraindication to LVAD. No new recommendations, we will sign off. Thank you for allowing us to participate in this patient's care. Electronically signed by Ginette Langston MD, FASN, FACP 01/02/2022 5:23 PM documented in this encounter H&P Notes * Mikel Goff MD - 12/31/2021 7:53 PM CDT Images from the original note were not included. [facility] Comprehensive Initial Note Date: 01/01/2022 Established [facility] patient: No PCP: No primary care provider on file. Chief complaint: SOB Note generated by: Mikel Goff HPI: Mr. Faye is a 71-year-old male with hypertension, hyperlipidemia, type 2 diabet es mellitus, COVID-19 infection in 09/2021 (not hospitalized), and prostate cance r s/p prostatectomy who [facility] with shortness of corey ath and LE swelling on 12/15/2021 who is now transferred here from [facility] in [place] for advanced HF therapy evaluation In September 2021, he was infected with COVID-19 but did not require hospitalizati on. His symptoms included mild fatigue and loss of taste with no fever. He the n successfully underwent left total knee arthroplasty in October 2021. In the p ostoperative period he started to develop worsening shortness of breath and LE e donnie. Although he lives in [place], [place] he was visiting his son in [facility] and ended up being admitted at the [facility] on 12/03/2021. Echo [place] wed LVEF 10%, right pleural effusion (transudative on thoracentesis) with CLAYTON. H e was diuresed and started on dobutamine infusion which improved symptoms and re sulted in 10 pound weight loss. He then developed A. fib and was started on anti coagulation. Due to poor cardiac function he was transferred to [facility] for ischemic work-up. LHC showed no significant disease. During thi s hospitalization he went into sustained VT requiring electrical cardioversion a nd initiation of amiodarone infusion and then PO. Attempted to start afterload r eduction with lisinopril and spironolactone which led to CLAYTON and hyperkalemia. G iven the continued requirement of inotrope and inability to optimize GDMT, he wa s transferred here for evaluation of advanced HF therapies. Pertinent labs: (12/31/2021) CBC: 7.7, 11.2, 35.7, 223 Sodium 118, K 4.8, Cl 86, CO2 18, BUN 23, Cr 1.4 Alk phos 103, ALT 70, AST 20 Reported weight on 12/22: 114 Kg Medications at the time of transfer: Amiodarone 200 mg daily Aspirin 81 mg daily Atorvastatin 20 mg daily Cyclobenzaprine 10 mg as needed 3 times daily Bisacodyl 5 mg daily Digoxin to 250 mcg daily Finasteride 5 mg daily Fluticasone 50 mcg/inh., 2 sprays nasally every day Lasix 40 mg IV twice daily Tamsulosin 0.4 mg daily Temazepam 15 mg nightly as needed Vancomycin 7-day course completed on 12/31/2021 On my evaluation, he is laying comfortably in bed and on room air. 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 He has 2 ad ult children. He used to serve in the [employer] and was an active combat in [place] and [place]. Reports no prior cardiac history or symptoms. His SOB and LE colin ma started about 2 months ago and has been progressively getting worse which has limited his daily activities. He denies of ever using tobacco products or any other recreational drugs. Reports that he used to consume 24 12 oz beers a week about 20 years ago but has since then significantly reduced to about 6 pack a w [place]. No significant family history of cardiac disease except for his father who had a IN in his 70s. Since his COVID infection he has loss of taste and has not consumed alcohol over the past 4 months. Past Medical History: Diagnosis Date Atrial fibrillation (HCC) Cancer (HCC) Cardiomyopathy (HCC) CHF (congestive heart failure) (HCC) Diabetes mellitus (HCC) Past Surgical History: Procedure Laterality Date PROSTATECTOMY TOTAL KNEE ARTHROPLASTY Social History: reports that he has never smoked. He has never used smokeless tobacco. He repor ts previous alcohol use. He reports previous drug use. No family history on file. Family History of Premature CAD: No Review of Systems Constitutional: Positive for activity change and fatigue. HENT: Negative. Respiratory: Positive for cough and shortness of breath. Negative for choking an d chest tightness. Cardiovascular: Positive for leg swelling. Negative for chest pain and palpitati ons. Gastrointestinal: Positive for abdominal distention. Negative for abdominal pain , anal bleeding and constipation. Genitourinary: Negative. Musculoskeletal: Negative. Neurological: Negative. No Known Allergies Medications: Medications Prior to Admission Medication Sig cyclobenzaprine (FLEXERIL) 10 MG tablet Take 1 tablet by mouth. furosemide (LASIX) 80 MG tablet Take 1 tablet by mouth. hydrocodone-chlorpheniramine 10-8 mg/5 mL (TUSSIONEX PENNKINETIC) ER suspens ion Take 5 mL by mouth nightly as needed. losartan-hydrochlorothiazide (HYZAAR) 50-12.5 mg per tablet Take 1 tablet by mouth. meloxicam (MOBIC) 15 MG tablet Take 1 tablet by mouth. methocarbamoL (ROBAXIN) 500 MG tablet Take 1 tablet by mouth. NIFEdipine (PROCARDIA-XL, ADALAT CC) 30 MG 24 hr tablet 1 tablet on an empty stomach predniSONE (DELTASONE) 50 MG tablet Take 50 mg by mouth. terazosin (HYTRIN) 2 MG capsule 1 capsule at bedtime zolpidem (AMBIEN CR) 12.5 MG CR tablet 1 tablet at bedtime as needed zolpidem (AMBIEN) 10 mg tablet 1 tablet at bedtime as needed lisinopriL (PRINIVIL,ZESTRIL) 10 MG tablet Take 10 mg by mouth daily. simvastatin (ZOCOR) 10 MG tablet Take 10 mg by mouth. tramadoL (ULTRAM) 50 mg tablet Take 100 mg by mouth every 6 (six) hours as n eeded. LABS & IMAGING: XR Chest single view frontal Result Date: 01/01/2022 1. Right greater than left perihilar and bibasilar heterogeneous opacities, likely representing moderate interstitial pulmonary edema. Superimposed infection or aspiration is not excluded. 2. Small right greater than left pleural effusions. 3. Cardiomegaly. ATTESTATION STATEMENT: The Staff Radiologist has personally reviewed the images and dictated, reviewed, or edited the final report. READING SITE: [facility] Echo Complete with Doppler and Color Flow Result Date: 01/01/2022 1. Severe left ventricular dilatation. LVEDVI= 130 ml/m2. 2. Severely reduced left ventricular systolic function, with a calculated ejec tion fraction of 24%. 3. Global hypokinesis with some regional variability. 4. Severe right ventricular dilatation with severely reduced systolic function . 5. Mild aortic stenosis. 6. Mild MR. Pbhl-bz-vftrbyjf TR. 7. Estimated central venous and PA pressures are elevated. No previous study available for comparison. Dr. Justin Powers MD (Electronically Signed) Final Date: 01 January 2022 11:27 EKG: Atrial Fibrillation at 78 bpm Telemetry: Atrial fibrillation with controlled ventricular response Most Recent Result within the last 7 days Lab Units 01/01/22 0025 12/31/21 2044 WBC TH/uL 6.28 6.71 HEMOGLOBIN g/dL 11.4* 11.0* HEMATOCRIT % 35* 34* PLATELET COUNT Th/uL 219 215 INR -- 1.3* Recent Labs 12/31/214 01/01/22 0025 NA 121* 122* CO2 21 23 BUN 18 20 CREAT 1.40* | 1.40* 1.30 MG 1.60 | 1.60 -- Most Recent Result within the last 7 days Lab Units 01/01/225 12/31/212043 POTASSIUM mEq/L 4.3 4.2 Most Recent Result within the last 7 days Lab Units 01/01/225 12/31/212043 GLUCOSE mg/dL 111* 111* Most Recent Result within the last 7 days Lab Units 01/01/225 12/31/212043 ALKALINE PHOSPHATASE U/L 115 111 PROTEIN TOTAL SERUM g/dL 6.0 6.2 ALBUMIN g/dL 3.7 3.6 ALANINE AMINOTRANSFERASE U/L 76* 77* ASPARTATE AMINOTRANSFERASE U/L 18 20 BNP Date/Time Value Ref Range Status 12/31/2021 2044 933 (H) 0 - 100 pg/mL Final No results found for: [id number], [id number], [id number], [id number], TR [id number] Lab Results Component Value Date HGBA1C 6.7 (H) 12/31/2021 Coronary angiogram: Date: 12/22/2021 Reported to be nonobstructive disease. However, actual report and images are no t available from outside hospital ([facility]) PHYSICAL EXAM: Temp: [36.3 C (97.4 F)-36.6 C (97.8 F)] 36.6 C (97.8 F) Pulse: [76-83] 83 Resp: [16-22] 22 BP: (110-137)/(68-77) 137/68 VILAL Risk Index for in-hospital mortality Age: 71 y.o. BP: 137/68 Pulse: 83 VILLA Risk Index Score: 31 <20 is low risk 20-30 is Intermediate >30 is high risk Physical Exam Constitutional: Appearance: Normal appearance. He is obese. He is not ill-appearing. HENT: Head: Normocephalic. Mouth/Throat: Mouth: Mucous membranes are moist. Eyes: Extraocular Movements: Extraocular movements intact. Pupils: Pupils are equal, round, and reactive to light. Neck: Comments: Elevated JVP Cardiovascular: Rate and Rhythm: Normal rate. Rhythm irregular. Pulses: Normal pulses. Pulmonary: Effort: Pulmonary effort is normal. No respiratory distress. Breath sounds: Wheezing present. Comments: Bilateral reduced breath sounds Abdominal: General: There is distension. Palpations: Abdomen is soft. Tenderness: There is no abdominal tenderness. Musculoskeletal: General: Normal range of motion. Cervical back: Normal range of motion. Right lower leg: Edema present. Left lower leg: Edema present. Comments: Bilateral 3+ pitting pedal edema with erythematous skin changes Skin: Findings: Erythema present. No rash. Neurological: General: No focal deficit present. Mental Status: He is alert and oriented to person, place, and time. ASSESSMENT & PLAN: Active Problems: Cardiogenic shock (HCC) Benign essential hypertension Mixed hyperlipidemia Primary insomnia Prostate cancer (HCC) COVID-19 virus infection Obesity Type 2 diabetes mellitus (HCC) Heart failure with reduced ejection fraction (HCC) Elevated liver enzymes Acute kidney injury (HCC) Atrial fibrillation (HCC) Hyponatremia # Acute decompensated heart failure -NYHA class III, ACC AHA stage C, Glaser classification warm and wet -Most recent echo report from outside hospital with LVEF 10%, moderate to severe aortic stenosis -Cardiomyopathy type: Nonischemic with C report from outside hospital showing nonobstructive disease -?viral mediated, alcohol induced -CXR shows bilateral pulmonary edema, lactate 1.2, BNP pending -Diuretics: We will start with IV Lasix 80 mg once and monitor output -Inotropes: Continue dobutamine 5 mcg/kg/min -GDMT medications: -BB: We will hold initiation until he is more compensated -Afterload: Initiate sacubitril/valsartan 24-26 mg twice daily (cost check orde red) -MRA: Was on spironolactone at OSH which led to hyperkalemia-hold for now -SGLT2i: Cost check ordered and will initiate once he is more stable -Echocardiogram in the morning -Right heart catheterization in the morning-n.p.o. after midnight -Can consider cardiac MRI once he is hemodynamically stable to discern etiology -Monitor I's and O's; daily weights and replete electrolytes as appropriate; mon itor on telemetry -Devices: No indication at this time until GDMT is optimized -Advanced HF therapies: Transferred for evaluation of LVAD. However, at this jose e we will attempt to optimize GDMT and wean off dobutamine before further consid eration # Sustained ventricular tachycardia s/p cardioversion (reported with no strips) # Persistent atrial fibrillation ([id number] 4) -Rate control: Continue digoxin 250 mcg daily -Check digoxin level on 01/01 -Anticoagulants: Continue heparin infusion -Underwent electrical cardioversion for sustained VT on 12/21 -S/p amiodarone infusion and now transition to amiodarone 200 mg daily -Continue amiodarone 200 mg daily -Check TSH, LFTs # Hypothyroidism -Elevated TSH with reduced free T4 -Possibly could be sick euthyroid in the setting of decompensated heart failure -Endocrinology consultation for further management and advised # Acute kidney injury # Hyponatremia -Most likely hypervolemic hyponatremia -Unknown baseline creatinine but he reports no prior kidney injury -We will proceed with diuresis as mentioned above -If hyponatremia worsens we can consider initiation of tolvaptan # Hypertension # Type 2 diabetes mellitus # Hyperlipidemia -Unclear of his home medications which will be procured from his in the [facility] [place] -Check lipid panel and A1c # Prostate cancer s/p prostatectomy -Had brief episode of hematuria during admission which resolved -Underwent a 7-day course of vancomycin which was stopped on 12/31 due to possibl e UTI -Continue tamsulosin # COVID-19 infection -Currently has loss of taste from his infection in 09/2021 -We will recheck COVID status prior to scheduled RHC # Social -Supported by his and 2 other children who live in [facility] -No history of tobacco or any other recreational drug abuse -Currently no issues with alcohol abuse -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 I have reviewed a nd edited the note as needed and agree with the information outlined by Dr. Rasta john with the following additional remarks: 71 yo M w/ HTN, HLD, T2DM and prostate cancer s/p prostatectomy, who had COVID i nfection in September 2021, not requiring hospital admission, and presented to [facility] 12/15 with progressive dyspnea and leg swelling. He was found to have EF 10% by echo. He had thoracentesis for R pleural effusion. He had CLAYTON, and was diuresed with dobutamine for inotropic support. He developed AFib and was placed on AC. HE was transferred to [facility], where tl ogram showed non-obstructive CAD. He had sustained VT requiring DCCV, and was st arted on amiodarone. Recurrent CLAYTON and hyperkalemia with attempted addition of G DMT. Transferred here for VAD evaluation. Overnight he had 3.5+ L of UOP after Lasix 80 mg IV x1. He was started on low-do se Entresto this am. He has felt a bit better, from a breathing and swelling sta ndpoint, this am, though his breathing feels a bit more labored, while laying to tally flat. He reports no appetite, but this has been ever since COVID, because he lost his sense of taste and smell. Exam noted above. This am, he has 2+ b/l LE edema, pitting edema in his abdomina l wall, +JVD, irregularly irregular rhythm with normal rate, decreased bibasilar breath sounds with rales in lower/mid-lung green, bilaterally. RHC 01/01: RA 16, RV 45/16, PA 55/30 (38), PCWP 25, Kaela CO/CI (on [employer] 5) 6.0/2.4 , PVR 2.2 HILL Echo 01/01 1. Severe left ventricular dilatation. LVEDVI= 130 ml/m2. 2. Severely reduced left ventricular systolic function, with a calculated ejecti on fraction of 24%. 3. Global hypokinesis with some regional variability. 4. Severe right ventricular dilatation with severely reduced systolic function. 5. Mild aortic stenosis. 6. Mild MR. Pwwp-xp-biyolmwn TR. 7. Estimated central venous and PA pressures are elevated. No previous study available for comparison. A/P: - PA catheter sutured in place, transfer to CCU for catheter-guided optimization - give another Lasix 80 mg IV - will look to wean dobutamine in next 24 hrs - can likely add back spironolactone tomorrow - start SGLT2 inhibitor - no BB while on dobutamine - STOP digoxin. Level 2.3 this am. Not a good therapy for him, given age and abn ormal renal function. - unclear etiology, suspect viral vs familial - will need to get films to review, from angiogram - CV MRI once compensated/optimized - outpatient genetic testing - unfortunately, poor RV function currently limits consideration for LVAD - I am hopeful we can improve his function and get him out of HF with oral GDMT - continue amidoarone, as had sustained VT requiring DCCV @ OSH - continue heparin gtt, until invasive testing complete, then will need OAC - unclear need for ASA, can likely stop (no h/o CVA or IN) - SSI for DM2/glucose control. Would be a good GLP-1 agonist candidate, given ob esity - suspect sleep apnea, will need outpatient sleep study - LDL 63 on Lipitor 20 mg daily I have performed an independent review of the following: EKG Telemetry Echocardiogram CXR I have discussed the case with the following: Another healthcare provider; Dr. Song Treatment goals, progress and next steps, as above, were discussed and mutually agreed upon with the patient/family. Jose Goff MD documented in this encounter Consult Notes * Anali Herr MD - 01/06/2022 12:02 PM CDTAssociated Order(s): IP CONSULT TO ELECTROPHYSIOLOGY Images from the original note were not included. [facility] Electrophysiology Consult Date: 01/06/2022 [facility] patient: No PCP: No primary care provider on file. Case discussed with Requesting Physician : Yes Requesting Physician: Dr. Fonseca Reason for consult: VT, possible [employer]PER[employer] Note generated by: Esthela Oakes DO HPI: Mr. Faye is a 71-year-old man with a history of hypertension, hyperlipidem ia, type 2 diabetes mellitus, COVID infection 09/27 and prostate cancer status po st prostatectomy who was transferred from the [facility] in [facility] on 12/15/2021 for advanced heart failure therapy evaluation. The patient had COVID-19 infection that did not require hospitalization in 2021. He then successfully underwent left knee arthroplasty in October 2021 . In the postoperative period he was found to have worsening shortness of breat h and lower extremity edema. He is from [facility] [place] but was visiting [facility] at the end of November when he presented with these symptoms. He was found to have an LVEF of 10% and CLAYTON. His hospital course included diuresis and dobutam ine inotropic therapy for cardiogenic shock. He developed atrial fibrillation a nd was started on anticoagulation. He underwent coronary angiography without sig nificant obstructive disease. He developed to sustained ventricular tachycardia requiring electrical cardioversion and initiation of amiodarone. His guideline directed medical therapy has been added and slowly titrated. TTE at [facility] with reduced LV EF and significant RV dilatation and dysfunction. He has undergone cardiac MRI and results are pending. His EKG demonstrates sinus rhythm with first-degree AV block of 400 ms, IVCD wit h QRS 130 ms. He states that he feels improved denies any shortness of breath at rest or chest pain. Past Medical History: Diagnosis Date Atrial fibrillation (HCC) Cancer (HCC) Cardiomyopathy (HCC) CHF (congestive heart failure) (HCC) Diabetes mellitus (HCC) Past Surgical History: Procedure Laterality Date CATHETERIZATION, HEART, RIGHT N/A 01/01/2022 Procedure: RIGHT HEART CATHETERIZATION; Surgeon: Mikel Goff MD; Locat ion: [facility]; Service: Cardiology - Cardiac Intervention Hemodynamics Periph eral Structural; Laterality: N/A; PROSTATECTOMY TOTAL KNEE ARTHROPLASTY Social History: reports that he has never smoked. He has never used smokeless tobacco. He repor ts previous alcohol use. He reports previous drug use. No family history on file. Family History of Premature CAD: No Review of Systems 10 points reviewed and found negative except as noted in the HPI, or below: Review of Systems Constitutional: Positive for activity change. Negative for chills, fatigue and f ever. Respiratory: Positive for shortness of breath. Negative for chest tightness. Cardiovascular: Negative for chest pain, palpitations and leg swelling. Gastrointestinal: Negative for abdominal distention, abdominal pain, diarrhea, n ausea and vomiting. Neurological: Positive for weakness. Negative for dizziness, syncope and light-h eadedness. All other systems reviewed and are negative. No Known Allergies Medications-Current: amiodarone 200 mg Oral Daily aspirin 81 mg Oral Daily atorvastatin 20 mg Oral Nightly empagliflozin 10 mg Oral Daily eplerenone 25 mg Oral Daily fluticasone propionate 1 spray Each Nare Daily furosemide 40 mg Intravenous Daily insulin lispro 1-6 Units Subcutaneous 4 times daily before meals and nightl y levothyroxine 25 mcg Oral Daily sacubitriL-valsartan 1 tablet Oral BID tamsulosin 0.4 mg Oral Daily heparin 11.8 Units/kg/hr (01/06/22 0228) LABS & IMAGING: CT Abdomen wo contrast Result Date: 01/02/2022 Punctate nonobstructing left renal calculi. Otherwise unremarkable noncontrast appearance of the kidneys. For other findings please see above. READING SITE: [facility] CT Chest wo contrast Result Date: 01/02/2022 1. Moderate right and small left pleural effusions with associated right worse than left bibasilar relaxation atelectases. 2. No discrete focal consolidation or concerning pulmonary nodule or mass. 3. Coronary and aortic atherosclerosis. Scattered calcifications of the aortic valve leaflets for which some degree of aortic stenosis is suspected. READING SITE: [facility] US Abdomen complete Result Date: 01/01/2022 Gallbladder wall thickening with no sonographic Solorzano sign and no gallstones identified. Cannot exclude acalculous cholecystitis. READING SITE: [facility] THIS DOCUMENT HAS BEEN ELECTRONICALLY SIGNED BY RAVEN CEDENO MD US Carotid Duplex bilat Result Date: 01/03/2022 1. Less than 50% stenosis of the internal carotid arteries. Mild calcified plaque bilaterally. 2. Antegrade flow in the vertebral arteries. READING SITE: [facility] XR Chest single view frontal Result Date: 01/01/2022 1. Right greater than left perihilar and bibasilar heterogeneous opacities, likely representing moderate interstitial pulmonary edema. Superimposed infection or aspiration is not excluded. 2. Small right greater than left pleural effusions. 3. Cardiomegaly. ATTESTATION STATEMENT: The Staff Radiologist has personally reviewed the images and dictated, reviewed, or edited the final report. READING SITE: [facility] XR Chest post line drain or airway placement Result Date: 01/01/2022 1. Support apparatus as described. No pneumothorax. 2. Similar to slightly worsening of pulmonary edema and dense basilar atelectasis. Superimposed pneumonia is not excluded. 3. Increased or redistributed right-sided layering pleural effusion with intrafissural fluid. Similar small left pleural effusion. READING SITE: [facility] Echo Complete with Doppler and Color Flow Result Date: 01/01/2022 1. Severe left ventricular dilatation. LVEDVI= 130 ml/m2. 2. Severely reduced left ventricular systolic function, with a calculated ejec tion fraction of 24%. 3. Global hypokinesis with some regional variability. 4. Severe right ventricular dilatation with severely reduced systolic function . 5. Mild aortic stenosis. 6. Mild MR. Vxip-au-ezahgyje TR. 7. Estimated central venous and PA pressures are elevated. No previous study available for comparison. Dr. Justin Powers MD (Electronically Signed) Final Date: 01 January 2022 11:27 EKG: SR with 1st AV block, IVCD (QRS 130 msec) Telemetry: Sinus rhythm with frequent PVCs of several different morphologies. and Telemetry was personally reviewed ventricular rates in the 70s Most Recent Result within the last 7 days Lab Units 01/06/22 1020 01/05/22 0201 01/04/22 1141 01/04/22 0600 01/03/22 0322 01/02/22 1734 01/02/22 0627 01/01/22 2342 01/01/22 1450 01/01/22 0025 12/31/21 2044 WBC TH/uL 6.52 6.98 -- 7.74 7.54 -- 9.03 -- -- < > 6.71 HEMOGLOBIN g/dL 11.7* 10.9* -- 11.3* 10.8* -- 11.4* -- -- < > 11.0* HEMATOCRIT % 38* 34* -- 35* 34* -- 35* -- -- < > 34* PLATELET COUNT Th/uL 296 267 263 254 231 < > 225 < > -- < > 215 INR -- -- -- -- -- -- -- -- 1.4* -- 1.3* < > = values in this interval not displayed. Recent Labs 01/04/22 0600 01/05/22 0201 01/06/22 1020 NA 133* 133* 133* CO2 27 26 29 BUN 11 10 9 CREAT 1.10 1.00 1.10 Most Recent Result within the last 7 days Lab Units 01/06/22 1020 01/05/22 0201 01/04/22 0600 01/03/22 0322 01/02/22 0627 POTASSIUM mEq/L 3.8 3.7 4.2 3.9 3.5 Most Recent Result within the last 7 days Lab Units 01/06/22 1020 01/05/22 0201 01/04/22 0600 01/03/22 0322 01/02/22 0627 GLUCOSE mg/dL 108* 117* 106* 109* 106* Most Recent Result within the last 7 days Lab Units 01/06/22 1020 01/05/22 0201 01/04/22 0600 ALKALINE PHOSPHATASE U/L 120 113 111 PROTEIN TOTAL SERUM g/dL 5.9 5.6* 5.4* ALBUMIN g/dL 3.4* 3.3* 3.4* ALANINE AMINOTRANSFERASE U/L 32 36 41 ASPARTATE AMINOTRANSFERASE U/L 16 13 17 No results found for: BNP No results found for: [id number], [id number], [id number], [id number], TR [id number] Lab Results Component Value Date HGBA1C 6.9 (H) 01/01/2022 HGBA1C 6.7 (H) 12/31/2021 Coronary angiogram: Date: 12/2021 OSH No obstructive CAD by report Other cardiac tests/procedures: 01/05/22 Cardiac MRI, pending results Echo: Results for orders placed during the hospital encounter of 12/31/21 Echo Complete with Doppler and Color Flow Impression 1. Severe left ventricular dilatation. LVEDVI= 130 ml/m2. 2. Severely reduced left ventricular systolic function, with a calculated ejecti on fraction of 24%. 3. Global hypokinesis with some regional variability. 4. Severe right ventricular dilatation with severely reduced systolic function. 5. Mild aortic stenosis. 6. Mild MR. [id number]-[id number] TR. 7. Estimated central venous and PA pressures are elevated. No previous study available for comparison. Dr. Justin Powers MD (Electronically Signed) Final Date: 01 January 2022 11:27 PHYSICAL EXAM: Temp: [36.5 C (97.7 F)-36.9 C (98.4 F)] 36.7 C (98 F) Pulse: [78-88] 88 Resp: [16-20] 18 BP: (96-120)/(61-69) 109/68 VILLA Risk Index for in-hospital mortality Age: 71 y.o. BP: 109/68 Pulse: 88 VILLA Risk Index Score: 42 <20 is low risk 20-30 is Intermediate >30 is high risk Physical Exam ASSESSMENT & PLAN: Active Problems: Cardiogenic shock (HCC) Benign essential hypertension Mixed hyperlipidemia Primary insomnia Prostate cancer (HCC) COVID-19 virus infection Obesity Type 2 diabetes mellitus (HCC) Heart failure with reduced ejection fraction (HCC) Elevated liver enzymes Acute kidney injury (HCC) Atrial fibrillation (HCC) Hyponatremia 1. Nonischemic cardiomyopathy with NYHA Class III, ACC AHA Stage C. -ongoing evaluation for advanced therapies and titration of GDMT. -we are asked to evaluate whether he could benefit from cardiac resynchronizati on therapy. Review of the patient's ECG demonstrates an IVCD with a QRS of 130 m sec. He is not likely to have benefit from resynchronization therapy and therefo re we would not recommend this at this time. 2. Sustained ventricular tachycardia s/p cardioversion -patient on amiodarone po at this time. -would recommend ICD implantation for secondary prevention prior to discharge f rom this hospitalization. Will evaluate for possible inclusion in the LEADR stud y with the research team. 3. Paroxysmal atrial fibrillation -[id number] of 4 (age, HF, HTN, DMII). Agree with OAC, currently on heparin unt il all procedures are complete. -on amiodarone for antiarrhythmic therapy. A total of 40 of provider time was spent on retrieving results, reviewing result s, interpreting results and providing communication on results and recommendatio ns. This note was completed by: Resident/Fellow: Esthela Oakes DO Electronically signed by Esthela Oakes DO, 01/06/2022 12:03 PM STAFF ATTESTATION: I, Anali Herr MD, have seen and examined this patient. I have reviewed and e dited the note as needed and agree with the information outlined by Dr. Champ nye the following additional remarks: History as above. Exam: Gen - alert, no apparent distress HEENT - JVP not visualized, anicteric sclera Chest - normal respiratory effort, no use of accessory muscles Ext - no evident edema Skin - no evident rashes Heme - no significant ecchymoses Neuro - alert, oriented, normal mood ECG/telemetry review: Sinus, long first degree AVB, IVCD (130 msec); reported martinez stained VT from transferring hospital Impression/Recommendations: Recommend secondary prevention ICD before discharge from hospital. I have had a shared decision making discussion with the patient and reviewed the alternativ es, risks and benefits of the procedure and he wishes to proceed. 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 Agree wi th amiodarone given HF and sustained VT. Anali Herr MD I have performed an independent review of the following: EKG Telemetry CXR I have discussed the case with the following: Another healthcare provider Treatment goals, progress and next steps, as above, were discussed and mutually agreed upon with the patient/family. 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 Pt maximilian ntified his , Katrin, as his primary support for needs before and following L VAD implant. Pt identified his two sons: Woodrow and Jose, as well as numerous loc al friends as additional supports if needed. Discussed program required of 6-12 weeks of 24/7 support following implant and pt denies any concerns with this req uirement. The [employer] Integrated Psychosocial Assessment Tool for Transplant (SIPAT) scor e was 10 indicating that patient is a good candidate for LVAD implant. However, no portion of the SIPAT assesses access to healthcare or affordability of post t ransplant medications. Current factors influencing the psychosocial risk and SIPAT score include: Alcohol Use: Pt reports a history of regular alcohol use, "about 20-30 years ago ", where he would drink one 24 pack of beer per week. Pt states more recently he was consuming about one six pack of beer every 2-3 weeks, however has not drank in the last few months due to his health. He denies any social or legal repercu ssions as a result of his alcohol use. Recommendations: It is recommended that pt continue to abstain from alcohol use before and following LVAD implant which he is agreeable to. While pt denies any concerns with his support plan following LVAD, it would be beneficial for pt's s ons and to participate in LVAD training to ensure they are able to commit t o all aspects of the LVAD, especially as pt lives a few hours from [facility]. Full note to follow. Princess Echeverria, 01/02/2022 3:34 PM Ext. [phone] * Princess Echeverria LMSW - 01/02/2022 3:11 PM CDTAssociated Order(s): CONSULT TO CARE PROGRESSION; CONSULT TO CARE PROGRESSION; CONSULT TO CARE PROGRESSION; CONSULT TO CARE PROGRESSION; CONSULT TO CARE PROGRESSION Consults received for DC planning and medication benefit check. GENI CC completed benefit check for Jardiance and Entresto through [facility]. Each medication tiesha l cost $11. CELI called the [facility] to confirm as pt states he usually does not have a copay. Per pharmacy, Jardiance usually requires a PA, however cost will not exceed $11 for medications. She recommended [facility] in the event they are needed. CELI to notify HF YODIT. Princess Echeverria, 01/02/2022 3:16 PM Ext. [phone] * Aditi Copeland MD - 01/02/2022 12:22 PM CDTAssociated Order(s): IP CONSULT TO INFECTIOUS DISEASE [facility] INFECTIOUS DISEASE CONSULTATION NAME: Anabella Faye AGE: 71 y.o. : 1950 ADMISSION DATE: 12/31/2021 PRIMARY CARE PROVIDER: No primary care provider on file. ATTENDING PHYSICIAN: Maxine Song MD REASON FOR CONSULT: LVAD evaluation HISTORY OF PRESENT ILLNESS: This is a 71 year male with history of cardiomyopathy undergoing LVAD evaluation . For infectious disease history, he has history of COVID 19 infection in 09/2021, he was inpatient for 2 weeks. He denies any history of other pneumonia, UTI or skin infection. Prior to admission, denies fever, chills drenching night sweats, cough, chest pain, hemoptysis, unintentional weight loss, joint pain, skin rash, headache. CURRENT MEDICATIONS: Current Facility-Administered Medications Medication Dose Route Frequency Provider Last Rate Last Admin acetaminophen (TYLENOL) tablet 325-650 mg 325-650 mg Oral Q6H PRN Agnes Unger MD 650 mg at 01/02/22 0004 Or acetaminophen (TYLENOL) suppository 325-650 mg 325-650 mg Rectal Q6H PRN Hemanth Unger MD acetaminophen (TYLENOL) tablet 325-650 mg 325-650 mg Oral Q6H PRN Agnes Unger MD 650 mg at 01/01/22 1444 Or acetaminophen (TYLENOL) suppository 325-650 mg 325-650 mg Rectal Q6H PRN Hemanth Unger MD aluminum-magnesium hydroxide-simethicone (MAALOX PLUS) 400-400-40 mg/5 mL martinez spension 15 mL 15 mL Oral Q4H PRN Agnes Unger MD amiodarone (CORDARONE) tablet 200 mg 200 mg Oral Daily Randal Osei 200 mg at 01/02/22 0834 aspirin EC tablet 81 mg 81 mg Oral Daily Agnes Unger MD 81 mg at 0 01/02/22 08 atorvastatin (LIPITOR) tablet 20 mg 20 mg Oral Nightly Randal Osei 20 mg at 01/01/222010 cyclobenzaprine (FLEXERIL) tablet 10 mg 10 mg Oral TID PRN Agnes shelley MD 10 mg at 01/02/223 dextrose (D50W) 50 % injection 25-50 mL 25-50 mL Intravenous PRN Agnse medina MD Or dextrose 10% (D10W) bolus 125-250 mL 125-250 mL Intravenous PRN Agnes goldstein MD docusate sodium (COLACE) capsule 100 mg 100 mg Oral BID PRN Agnes Kharit on, MD empagliflozin (JARDIANCE) tablet 10 mg 10 mg Oral Daily Agnes Unger MD 10 mg at 01/02/22 0834 fluticasone propionate (FLONASE) 50 mcg/actuation nasal spray 1 spray 1 spr ay Each Nare Daily Agnes Unger MD glucagon (GLUCAGEN) injection 1 mg 1 mg Intramuscular PRN Agnes Unger MD Or glucagon (GLUCAGEN) injection 1 mg 1 mg Subcutaneous PRN Agnes Unger MD glucose chewable tablet 16-32 g 16-32 g Oral PRN Agnes Unger MD heparin (porcine) 1,000 unit/mL injection 5,000 Units 40 Units/kg Intraveno us PRN Agnes Unger MD Or heparin (porcine) 1,000 unit/mL injection 10,000 Units 10,000 Units Intrave nous PRN Agnes Unger MD heparin 100 units/mL in sodium chloride 0.45% infusion 2-30 Units/kg/hr Int ravenous Continuous Agnes Unger MD 19.9 mL/hr at 01/02/22 0528 15.8 Units /kg/hr at 01/02/22 0528 insulin lispro (HumaLOG) injection 1-6 Units 1-6 Units Subcutaneous 4 times daily before meals and nightly Agnes Unger MD levothyroxine (SYNTHROID, LEVOTHROID) tablet 25 mcg 25 mcg Oral Daily Gifty Unger MD 25 mcg at 01/02/22 0627 magnesium sulfate IVPB 4 gram (premix) 4 g Intravenous PRN Agnes shelley MD miconazole nitrate (ALOE VESTA) 2 % ointment Topical TID PRN Agnes chappell MD nitroglycerin (NITROSTAT) SL tablet 0.4 mg 0.4 mg Sublingual Q5 Min PRN Lazaro Unger MD polyethylene glycol (GLYCOLAX) packet 17 g 17 g Oral Daily PRN Agnes courtney MD potassium chloride (KLOR-CON) CR tablet 20 mEq 20 mEq Oral PRN Agnes courtney MD Or potassium bicarb-citric acid (EFFER-K) effervescent tablet 20 mEq 20 mEq Or al PRN Agnes Unger MD Or potassium chloride 10 mEq in 50 mL IVPB 20 mEq Intravenous PRN Agnes courtney MD sacubitriL-valsartan (ENTRESTO) 24-26 mg per tablet 1 tablet 1 tablet Oral BID Agnes Unger MD 1 tablet at 01/02/22 0834 [MAR Hold] spironolactone (ALDACTONE) tablet 12.5 mg 12.5 mg Oral Daily Lazaro Unger MD 12.5 mg at 01/02/22 0914 tamsulosin (FLOMAX) 24 hr capsule 0.4 mg 0.4 mg Oral Daily Agnes shelley MD 0.4 mg at 01/02/22 0834 zolpidem (AMBIEN) tablet 5 mg 5 mg Oral Nightly PRN Agnes Unger MD ALLERGIES: Patient has no known allergies. PAST MEDICAL HISTORY: Past Medical History: Diagnosis Date Atrial fibrillation (HCC) Cancer (HCC) Cardiomyopathy (HCC) CHF (congestive heart failure) (HCC) Diabetes mellitus (HCC) PAST SURGICAL HISTORY: Past Surgical History: Procedure Laterality Date CATHETERIZATION, HEART, RIGHT N/A 01/01/2022 Procedure: RIGHT HEART CATHETERIZATION; Surgeon: Mikel Goff MD; Locat ion: [facility]; Service: Cardiology - Cardiac Intervention Hemodynamics Periph eral Structural; Laterality: N/A; PROSTATECTOMY TOTAL KNEE ARTHROPLASTY PROBLEM LIST: Active Hospital Problems Diagnosis SNOMED CT(R) Date Noted Hyponatremia HYPONATREMIA 01/01/2022 Cardiogenic shock (HCC) CARDIOGENIC SHOCK 12/31/2021 Benign essential hypertension BENIGN ESSENTIAL HYPERTENSION 12/31/2021 Mixed hyperlipidemia MIXED HYPERLIPIDEMIA 12/31/2021 Primary insomnia PRIMARY INSOMNIA 12/31/2021 Prostate cancer (HCC) MALIGNANT TUMOR OF PROSTATE 12/31/2021 COVID-19 virus infection COVID-19 12/31/2021 Obesity OBESITY 12/31/2021 Type 2 diabetes mellitus (HCC) TYPE 2 DIABETES MELLITUS 12/31/2021 Heart failure with reduced ejection fraction (HCC) HEART FAILURE WITH REDUCE D EJECTION FRACTION 12/31/2021 Elevated liver enzymes ELEVATED LIVER ENZYMES LEVEL 12/31/2021 Acute kidney injury (HCC) ACUTE INJURY OF KIDNEY 12/31/2021 Atrial fibrillation (HCC) ATRIAL FIBRILLATION 12/31/2021 Resolved Hospital Problems No resolved problems to display. FAMILY HISTORY: No family history on file. SOCIAL HISTORY: Social History Socioeconomic History Marital status: Tobacco Use Smoking status: Never Smoker Smokeless tobacco: Never Used Substance and Sexual Activity Alcohol use: Not Currently Drug use: Not Currently Sexual activity: Not Currently Born in [place], lived in [facility], no travel outside [facility], no known exposure to TB, does not eat raw meat or fish. Does not fish or hunting. REVIEW OF SYSTEMS: 12 point ROS was obtained and is negative except as mentioned in HPI. PHYSICAL EXAM: Vitals: Vitals: 01/02/22 1050 BP: 118/63 Pulse: 81 Resp: 18 Temp: 36.6 C (97.8 F) TempSrc: Oral SpO2: 100% Weight: Height: Temp (24hrs), Av.5 C (97.7 F), Min:36.4 C (97.5 F), Max:36.7 C (98 .1 F) General: alert, appears stated age, cooperative Head: Normocephalic, atraumatic Nose and throat: unremarkable Neck: no adenopathy Chest: clear to auscultation bilaterally CV: regular rhythm without murmur, gallop or rub Abdomen: normal bowel sounds, soft, nontender, without masses or organomegaly Extremities: normal, no edema Skin: color normal, no rash Neurological: alert, oriented, thought content appropriate LABORATORY RESULTS: Most Recent Result within the last 7 days Lab Units 01/02/22 0627 01/01/22 2342 01/01/22 0025 12/31/21 2044 WBC TH/uL 9.03 -- 6.28 6.71 HEMOGLOBIN g/dL 11.4* -- 11.4* 11.0* HEMATOCRIT % 35* -- 35* 34* PLATELET COUNT Th/uL 225 230 219 215 Most Recent Result within the last 7 days Lab Units 01/02/22 0627 01/01/22 0025 12/31/21 2044 SODIUM mEq/L 126* 122* 121* POTASSIUM mEq/L 3.5 4.3 4.2 CARBON DIOXIDE mEq/L 23 23 21 BLOOD UREA NITROGEN mg/dL 15 20 18 CREATININE mg/dL 1.00 1.30 1.40* | 1.40* GLUCOSE mg/dL 106* 111* 111* CALCIUM mg/dL 8.6 8.8 8.9 No results found for: PROCALCIT CULTURES: Results for orders placed or performed during the hospital encounter of 12/31/21 Extra Urine Specimen in [place] Tube Collection Time: 12/31/21 11:30 PM Specimen: Urine Clean Catch - RAINBOW DRAW HOLD SPECIMENS [place] Draw/Extra Tube Hold Specimen Extra Urine Specimen in [place] Tube Collection Time: 01/01/22 10:57 PM Specimen: Urine Clean Catch - RAINBOW DRAW HOLD SPECIMENS [place] Draw/Extra Tube Hold Specimen CULTURE SUMMARY: Not available SEROLOGIES: Latest Reference Range & Units 08/11/21 13:24 12/31/21 20:44 12/31/21 23:30 RPR Nonreactive Nonreactive SARS-CoV-2 PCR Not Detected NOT DETECTED (E) SARS COV2 PCR Negative, Invalid Positive ! [1] Hepatitis A Ab IgM Nonreactive Nonreactive Hepatitis B Surface Ag Nonreactive Nonreactive Hepatitis B Core Ab IgM Nonreactive, Equivocal Nonreactive Hepatitis C Ab Nonreactive Nonreactive HIV AG/JOEY Nonreactive Nonreactive !: Data is abnormal (E): External lab result [1] This test has been authorized by the FDA under an Emergency Use Authorizatio n (EUA) for use by authorized laboratories. IMAGING RESULTS: Chest x-ray 01/01/2022 IMPRESSION 1. Support apparatus as described. No pneumothorax. 2. Similar to slightly worsening of pulmonary edema and dense basilar atelectasis. Superimposed pneumonia is not excluded. 3. Increased or redistributed right-sided layering pleural effusion with intrafissural fluid. Similar small left pleural effusion. ASSESSMENT: 1. Cardiomyopathy undergoing LVAD evaluation. 2. COVID-19 infection recently in September 3. Acute kidney injury 4. Type 2 diabetes PLAN: Please obtain records from PCP regarding previous vaccination. Will need Prevnar 13, Tdap, Flu vaccine, COVID 19 vaccine booster. Counseling provided regarding preventative measures including water, food borne illness, environment. Follow up on the pending labs, at this point I do not see any contraindication f or LVAD unless any labs are abnormal. Thank you for the consultation, will sign off, please call us with questions. Electronically signed by Aditi Copeland MD 01/02/2022 12:22 PM * Ramiro Dale PA-C - 01/02/2022 10:55 AM CDTAssociated Order(s): IP CONSULT TO UROLOGY UROLOGY CONSULTATION Patient: Anabella Faye Age: 71 y.o. : 1950 DATE OF CONSULTATION: January 02, 2022 CHIEF COMPLAINT: Pre-LVAD evaluation. HPI: Pt is a 71 y/o male with heart failure admitted for LVAD evaluation. Note s a h/o prostate cancer and prostatectomy around 2016 in [place]. Does not leak urine at home. Feels he voids fine. Denies hematuria. PMH: Past Medical History: Diagnosis Date Atrial fibrillation (HCC) Cancer (HCC) Cardiomyopathy (HCC) CHF (congestive heart failure) (HCC) Diabetes mellitus (HCC) PSH: Past Surgical History: Procedure Laterality Date CATHETERIZATION, HEART, RIGHT N/A 01/01/2022 Procedure: RIGHT HEART CATHETERIZATION; Surgeon: Mikel Goff MD; Locat ion: [facility]; Service: Cardiology - Cardiac Intervention Hemodynamics Periph eral Structural; Laterality: N/A; PROSTATECTOMY TOTAL KNEE ARTHROPLASTY MEDICATIONS: Scheduled Meds: [Nov] amiodarone 200 mg Oral Daily [Nov] aspirin 81 mg Oral Daily [Nov] atorvastatin 20 mg Oral Nightly [Nov] empagliflozin 10 mg Oral Daily [Nov] finasteride 5 mg Oral Daily [Nov] fluticasone propionate 1 spray Each Nare Daily [Nov] insulin lispro 1-6 Units Subcutaneous 4 times daily before meals and nightly [Nov] levothyroxine 25 mcg Oral Daily [Nov] sacubitriL-valsartan 1 tablet Oral BID [Nov] spironolactone 12.5 mg Oral Daily [Nov] tamsulosin 0.4 mg Oral Daily Continuous Infusions: heparin 15.8 Units/kg/hr (01/02/22 0528) PRN Meds:[Nov] acetaminophen OR [Nov] acetaminophen, [Nov] ac etaminophen OR [NOV Hold] acetaminophen, [NOV Hold] aluminum-magnesium hydro xide-simethicone, [NOV Hold] cyclobenzaprine, [NOV Hold] dextrose 50% OR [] dextrose 10%, [NOV Hold] docusate sodium, [NOV Hold] glucagon OR [ R Hold] glucagon, [NOV Hold] glucose, [NOV Hold] heparin (porcine) OR [Nov old] heparin (porcine), [NOV Hold] magnesium sulfate, [NOV Hold] miconazole nitr ate, [NOV Hold] nitroglycerin, [NOV Hold] polyethylene glycol, [NOV Hold] potass ium chloride OR [Nov] potassium bicarb-citric acid OR [Nov] po tassium chloride in water, [NOV Hold] potassium chloride OR [Nov] potas sium bicarb-citric acid OR [NOV Hold] potassium chloride in water, [NOV Hold ] zolpidem ALLERGIES: has No Known Allergies. SOCIAL HISTORY: reports that he has never smoked. He has never used smokeless tobacco. He repor ts previous alcohol use. He reports previous drug use. FAMILY HISTORY: family history is not on file. ROS: Genito-Urinary ROS: no dysuria, trouble voiding, or hematuria PHYSICAL EXAMINATION: Blood pressure 118/63, pulse 81, temperature 36.6 C (97.8 F), temperature so urce Oral, resp. rate 18, height 1.854 m (6' 1"), weight 114.8 kg (253 lb 1.4 oz ), SpO2 100 %. GENERAL: Pt is alert and oriented no acute distress. HEENT: Grossly intact LUNGS: Normal respiratory effort ABDOMEN: Soft, nontender, nondistended MALE GENITALIA: normal RECTAL: deferred LABORATORY DATA: PSA 0.05 Appearance, Urine Date/Time Value Ref Range Status 01/01/2022 10:57 PM Yellow Colorless, Yellow, Dark Yellow Final Glucose Urine Date/Time Value Ref Range Status 01/01/2022 10:57 PM Negative Negative mg/dL Final Bilirubin Urine Date/Time Value Ref Range Status 01/01/2022 10:57 PM Negative Negative Final Ketones Urine Date/Time Value Ref Range Status 01/01/2022 10:57 PM Negative Negative Final Specific [place] Urine Date/Time Value Ref Range Status 01/01/2022 10:57 PM 1.006 1.005 - 1.030 Final Hemoglobin Urine Date/Time Value Ref Range Status 01/01/2022 10:57 PM Negative Negative Final PH Urine Date/Time Value Ref Range Status 01/01/2022 10:57 PM 6.0 5.0 - 8.0 Final Protein Urine Qual Date/Time Value Ref Range Status 01/01/2022 10:57 PM Negative Negative, Trace mg/dL Final Urobilinogen Urine Date/Time Value Ref Range Status 01/01/2022 10:57 PM Normal Normal, Negative, 1.0 EU/dL Final Nitrite Urine Date/Time Value Ref Range Status 01/01/2022 10:57 PM Negative Negative Final Leukocyte Esterase Date/Time Value Ref Range Status 01/01/2022 10:57 PM Negative Negative Final IMAGING: Renal US L kidney not visualized. US Abdomen complete Result Date: 01/01/2022 Gallbladder wall thickening with no sonographic Solorzano sign and no gallstones identified. Cannot exclude acalculous cholecystitis. READING SITE: [facility] THIS DOCUMENT HAS BEEN ELECTRONICALLY SIGNED BY RAVEN CEDENO MD XR Chest single view frontal Result Date: 01/01/2022 1. Right greater than left perihilar and bibasilar heterogeneous opacities, likely representing moderate interstitial pulmonary edema. Superimposed infection or aspiration is not excluded. 2. Small right greater than left pleural effusions. 3. Cardiomegaly. ATTESTATION STATEMENT: The Staff Radiologist has personally reviewed the images and dictated, reviewed, or edited the final report. READING SITE: [facility] XR Chest post line drain or airway placement Result Date: 01/01/2022 1. Support apparatus as described. No pneumothorax. 2. Similar to slightly worsening of pulmonary edema and dense basilar atelectasis. Superimposed pneumonia is not excluded. 3. Increased or redistributed right-sided layering pleural effusion with intrafissural fluid. Similar small left pleural effusion. READING SITE: [facility] Echo Complete with Doppler and Color Flow Result Date: 01/01/2022 1. Severe left ventricular dilatation. LVEDVI= 130 ml/m2. 2. Severely reduced left ventricular systolic function, with a calculated ejec tion fraction of 24%. 3. Global hypokinesis with some regional variability. 4. Severe right ventricular dilatation with severely reduced systolic function . 5. Mild aortic stenosis. 6. Mild MR. [id number] TR. 7. Estimated central venous and PA pressures are elevated. No previous study available for comparison. Dr. Justin Powers MD (Electronically Signed) Final Date: 01 January 2022 11:27 IMPRESSION: 1. Patient with heart failure undergoing LVAD evaluation. 2. H/o prostate cancer s/p prostatectomy 2016. PSA is less than <0.1. PLAN: Will check CT abd as renal US did not visualize L kidney, otherwise no co ntraindications as this time from our standpoint. Date: January 02, 2022 Time: 10:56 AM * Nicol Hutchins, JIAN - 01/02/2022 10:30 AM CDTAssociated Order(s): IP CONSULT TO PHYSICAL MEDICINE AND REHABILITATION [facility] 01/02/2022 Patient Identification Patient's Name: Anabella Faye : 1950 Admit Date: 12/31/2021 Attending Provider: Maxine Song MD Patient was seen and evaluated by the Physical Medicine & Rehabilitation Medicine consult service at the request of Maxine Song MD for rehabilitation needs. Primary Care Physician: No primary care provider on file. Admitting Diagnosis: Chronic systolic heart failure (HCC) [I50.22] History of Present Illness Information was obtained from patient interview and the medical records. Anabella Faye is a 71 y.o. male. Per chart review the patient was admitted on and has a past medical history significant for hypertension, hyperlipid emia, diabetes mellitus type 2, COVID-19, prostate cancer status post prostatect srinivasan. During a recent hospital admission he was found to have new heart failure with EF 10%. GDMT has been limited due to transaminitis and [place]. He was referr ed to [facility] for advanced heart failure therapy evaluation includin g possible LVAD destination therapy. Physical medicine and rehabilitation was c onsulted as a part of this process. At the time of my evaluation Mr. Faye is r esting in bed. No family at bedside. He does not endorse any acute complaints to me. Location: Cardiac Quality: Heart Failure Severity: Severe Duration: Beginning prior to admission and ongoing PPE Statement: Nicol Hutchins APRN used Yellow precautions (Level 1 mask worn over level 3 mask, eye protection, and gloves). Premorbid Functional Status: Prior to this hospitalization, this patient was ind ependent with all activities of daily living and self care. Current Functional Status: Therapy evaluations to take place when appropriate. Barriers to Returning Home/ Home Environment: Pt lives with his in a single family home. DME at home: None Caregiver/Social Support: , son, brother, and friends are supportive. He wi ll have 29/03 supervision and assistance as needed. Review of Systems A complete review of systems was obtained via the patient report including: Constitutional/General = Fatigue HEENT = Negative Cardio = Negative Respiratory = Negative GI = Negative = Negative Skin = Negative Neurologic = Negative Musculoskeletal = Weakness Psychiatric = Negative Endocrine = Negative Hematologic = Negative Patient History Information PAST MEDICAL HISTORY: Past Medical History: Diagnosis Date Atrial fibrillation (HCC) Cancer (HCC) Cardiomyopathy (HCC) CHF (congestive heart failure) (HCC) Diabetes mellitus (HCC) PAST SURGICAL HISTORY: Past Surgical History: Procedure Laterality Date CATHETERIZATION, HEART, RIGHT N/A 01/01/2022 Procedure: RIGHT HEART CATHETERIZATION; Surgeon: Mikel Goff MD; Locat ion: [facility]; Service: Cardiology - Cardiac Intervention Hemodynamics Periph eral Structural; Laterality: N/A; PROSTATECTOMY TOTAL KNEE ARTHROPLASTY FAMILY HISTORY: No family history on file. SOCIAL HISTORY: Social History Socioeconomic History Marital status: Tobacco Use Smoking status: Never Smoker Smokeless tobacco: Never Used Substance and Sexual Activity Alcohol use: Not Currently Drug use: Not Currently Sexual activity: Not Currently Precaution No Known Allergies CURRENT MEDICATIONS: [Nov] amiodarone 200 mg Oral Daily [Nov] aspirin 81 mg Oral Daily [Nov] atorvastatin 20 mg Oral Nightly [Nov] empagliflozin 10 mg Oral Daily [Nov] fluticasone propionate 1 spray Each Nare Daily [Nov] insulin lispro 1-6 Units Subcutaneous 4 times daily before meals and nightly [Nov] levothyroxine 25 mcg Oral Daily [Nov] sacubitriL-valsartan 1 tablet Oral BID [MAR Hold] spironolactone 12.5 mg Oral Daily [NOV Hold] tamsulosin 0.4 mg Oral Daily Physical Exam Patient Vitals for the past 24 hrs: BP Temp Temp src Pulse Resp SpO2 Weight 01/02/22 1050 118/63 36.6 C (97.8 F) Oral 81 18 100 % -- 01/02/22 1000 97/51 -- -- 81 20 98 % -- 01/02/22 0900 118/65 -- -- 76 16 97 % -- 01/02/22 0800 103/47 36.5 C (97.7 F) Oral 79 15 98 % -- 01/02/22 0700 116/62 -- -- 65 21 97 % -- 01/02/22 0626 -- -- -- -- -- -- 114.8 kg (253 lb 1.4 oz) 01/02/22 0600 97/52 -- -- 70 19 97 % -- 01/02/22 0500 92/58 -- -- 75 13 93 % -- 01/02/22 0400 99/51 36.5 C (97.7 F) Core 66 20 99 % -- 01/02/22 0300 (!) 88/41 -- -- 67 20 99 % -- 01/02/22 0200 101/46 -- -- 69 16 96 % -- 01/02/22 0100 98/49 -- -- 72 20 96 % -- 01/02/22 0000 93/49 36.4 C (97.5 F) Core 75 23 96 % -- 01/01/22 2300 111/65 -- -- 74 18 95 % -- 01/01/22 2220 -- -- -- 69 16 99 % -- 01/01/22 2200 116/67 -- -- 76 18 94 % -- 01/01/22 2100 90/68 36.6 C (97.8 F) Oral 74 13 99 % -- 01/01/221999 113/66 -- -- 75 20 100 % -- 01/01/22 1900 116/68 -- -- 75 18 98 % -- 01/01/22 1800 114/71 -- -- 74 24 -- -- 01/01/22 1700 119/69 -- -- 81 17 100 % -- 01/01/22 1616 122/83 -- -- 81 19 100 % -- 01/01/22 1600 122/83 36.4 C (97.6 F) Oral 81 20 99 % -- 01/01/22 1500 (!) 121/105 -- -- 91 22 100 % -- 01/01/22 1400 (!) 123/103 -- -- 87 21 99 % -- 01/01/22 1345 (!) 109/98 -- -- 86 18 100 % -- 01/01/22 1330 117/67 -- -- 87 18 95 % -- 01/01/22 1320 118/75 -- -- 88 24 99 % -- 01/01/22 1315 -- -- -- 84 18 98 % -- 01/01/22 1310 -- -- Core 87 20 99 % -- 01/01/22 1300 118/85 -- -- 86 25 90 % -- 01/01/22 1250 -- -- -- 78 27 98 % -- 01/01/22 1245 114/71 -- -- 84 26 -- -- 01/01/22 1240 -- -- -- 85 27 -- -- 01/01/22 1230 122/76 36.7 C (98.1 F) Core 86 (!) 32 97 % -- 01/01/22 1215 137/80 -- -- 87 28 97 % -- General: Awake, alert in NAD. HEENT: Head is atraumatic, normocephalic. Oral mucosa is moist and without lesio ns. Nares are patent. CV: RRR. Resp: Lungs are clear to auscultation bilaterally on anterior aspect of chest. GI: Abdomen is soft, non-tender, non-distended. : No hawkins in place. MSK: Symmetric and appropriate tone. No joint swelling or deformity is appreciat ed. Skin/Lymph: Skin is intact without obvious rashes or lesions. Neuro: Mental status - Awake, alert, oriented to person, place and time. Cognition & Comprehension - Performs simple and complex commands. Language - No signs of aphasia or dysarthria. Sensory - Intact to light touch in bilateral upper and lower extremities. No ext inction with bilateral simultaneous stimulation. CN - 2 through 12 grossly intact. Muscle strength - 5/5 in bilateral upper extremities with elbow flexion, extensi on, wrist extension, finger abduction and structural fitter. 5/5 in bilateral lower extremiti es with hip flexion, knee extension, ankle dorsiflexion, plantar flexion and gre at toe extension. There is no clonus. No sign of rigidity, cogwheeling or tremor are appreciated. No signs of spasticity. Negative Goldman's. Babinski down-going bilaterally. Apraxia/Neglects - Does not demonstrate apraxias or motor/sensory neglects. No e vidence for inattention or extinction. Autonomic signs - Skin temperature, color, sweating within normal limits. No lawrence dence for autonomic storming. DATA REVIEW Most Recent Result within the last 7 days Lab Units 01/02/22 0627 WBC TH/uL 9.03 HEMOGLOBIN g/dL 11.4* HEMATOCRIT % 35* PLATELET COUNT Th/uL 225 Most Recent Result within the last 7 days Lab Units 01/02/22 0627 SODIUM mEq/L 126* POTASSIUM mEq/L 3.5 CARBON DIOXIDE mEq/L 23 BLOOD UREA NITROGEN mg/dL 15 CREATININE mg/dL 1.00 GLUCOSE mg/dL 106* CALCIUM mg/dL 8.6 Assessment/Plan I have personally performed an independent review of the patient's vital signs, laboratory/pathology/culture results (as indicated), imaging studies (results we re not discussed with the performing provider), diagnostic tests/studies (result s were not discussed with the performing provider), current inpatient medication s, senior consultant notes, and vp software support notes with pertainent findings noted with in the assessment/plan. Assessment: Anabella Faye is a 71 y.o. male with: Acute decompensated heart failure undergoing advanced heart failure therapy eval uation Nonischemic cardiomyopathy History of COVID-19 infection Persistent atrial fibrillation Hypothyroidism Acute kidney injury Hypertension Hyperlipidemia Diabetes mellitus type 2 History of prostate cancer status post prostatectomy Recommendations: -No major rehabilitation barriers to proceeding with trasplant/LVAD. -Continue medical/surgical care per primary team. -Physical Therapy and Occupational Therapy will be available to assess functiona l needs after any surgery and continue treatment while in hospital. -We discussed the goals of rehabilitation and options to include in-hospital the rapy prior to discharge, acute inpatient rehabilitation after discharge, and con tinued home health after that. - Social work for discharge disposition and planning. I explained to the patien t that the goal would be for them to have 24-hour assistance upon returning home in order for a safe transition. - PM&R will follow along peripherally and be available after any procedures have been completed. We will continue to follow and make recommendations as they become known as the patient's status and therapy needs may change prior to being medically ready for next level of care. Thank you for this consultation. Hopefully these efforts have been helpful. Suzy jain feel free to contact us with any questions or concerns. Nicol Hutchins, MSN, [employer], AGNP-C Physical Medicine and Rehabilitation [facility] Pager [phone] * Magdaleno Hallman RN - 01/02/2022 7:24 AM CDTAssociated Order(s): IP CONSULT TO HOSPICE AND PALLIATIVE MEDICINE [facility] PALLIATIVE MEDICINE SERVICE INITIAL CONSULTATION/ASSESSMENT PATIENT NAME: Anabella Faye ADMISSION DATE: 12/31/2021 CONSULT DATE: 01/02/2022 ROOM: [place] [address] CPI: [id number] AGE: 71 y.o. : 1950 PRIMARY CARE PROVIDER: No primary care provider on file. ATTENDING PHYSICIAN: Maxine Sogn MD REFERRING PHYSICIAN: Dr. Song CODE STATUS: Full Code REASON FOR CONSULTATION: LVAD evaluation HISTORY OF PRESENT ILLNESS: Anabella Faye is a 71 y.o. male admitted 12/31/2021 7:01 PM with diagnoses of Systolic heart failure Cardiogenic shock (HCC). Patient has a past medical history of HTN, HLD, type II DM, previous history of COVID-19, prostate cancer s/p prostatectomy. During a r ecent admission he was found to have new heart failure with an EF of 10%, his GD MT has been limited due to transaminitis and [place]. He has been referred to [facility] fo r advanced therapy evaluation including LVAD placement for destination therapy. Palliative Medicine has been consulted to assist in exploring patients goals, va lues, and wishes related to such interventions being potentially offered. DISCUSSION: Met with Mr. Faye at the bedside and introduced myself and role of Palliative Care in evaluation process. I explained that the Palliative Medicine service is a team that routinely meets with patients during this evaluation process to ensu re they have understanding of current disease process, adequate support in the h ome, and to discuss advanced care planning completion. Mr. Faye was able to explain their current medical process and the evaluation t hat is currently taking place. We discussed heart failure being a non curable di sease that is often managed with medications, procedures, and or devices to assi st with symptom control and improving quality of life. We discussed as heart lalito lure advances, some people need higher/advanced levels of support to keep them a live and to improve symptoms and quality of life. Discussed advanced therapies b eing potentially offered to assist in life prolongation with quality of life in mind. Patient shares he has been struggling with shortness of breath and excess fluid. He shares he was told the goal is to maintain his health with medications for as long as possible. He reports he is taking things day by day. In regards to LVAD he shares he has a friend who has an LVAD and seems to be doing okay. He reports he has not had education on LVAD yet and is awaiting that. He does share he understands that it is a lifestyle change and comes with a lot of care that is r equired. We also discussed the use of it for destination therapy and how that me ans at some point the pump likely will not provide enough support and may need t o be turned off, or he could have further complications with the pump. He voices understanding and appears to be agreeable to LVAD if indicated. 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 Patient lists his support and living situation as living with his spouse, and th at he has two children who are a big support. Mr. Faye does not have ACP documents on file with [facility]. P rovided patient with ACP documents, and explained the importance in completing t o designate one or more people as their Durable Power of Sand Worker (DPOA). Encour aged the patient to read over documents and complete healthcare directive. Expla ined how ACP documents allows medical staff and caregivers to understand and res pect his wishes, should he not be able to make medical decisions. Patient voiced understanding, and would like time to look over documents. ASSESSMENT/PLAN: - Patient voiced understanding that heart failure is a chronic life limiting con dition which progresses over time, and if at any point in their journey with hea rt failure the medical therapies being offered do not align with their quality o f life, discussions can take place about alternative options. At this time he ap pears agreeable to LVAD placement if indicated, but wants to continue discussion s with the LVAD team. - Patient voiced understanding that if they were to receive an LVAD, they would continue to require chronic disease management and frequent follow up. -Patient voiced understanding that adequate transportation, and support from [facility] members is needed during the post operative stage to assist with care and AD L's. -Palliative education folder provided which included advance care planning docum ents. Encouraged patient to review and execute when appropriate. - Discussed with patient that Palliative Medicine will allow for the heart failu re team to complete their evaluation, but are always able to be consulted again should further goals of care discussions need to take place throughout this jour enrico. Thank you for allowing us to participate in this patients care. Palliative Medi cine will sign off at this time, however please do not hesitate to contact us wi th any further needs. Magdaleno GUTIERREZ, RN, [facility] Palliative Medicine Coordinator or Voalte Messenger * Dennis Saul MD - 01/01/2022 5:16 PM CDTAssociated Order(s): PSYCHIATRY CONSULT Attending Test Specialist Physician Psychiatry Evaluation ID: Anabella Faye is a 71 y.o. male who lives [phone] [facility] [id number]. CC: LVAD History of Present Illness: Patient is a 71 y.o. male with a history of atrial fibrillation, history of pros santiago cancer status post prostatectomy, type II diabetes, cardiomyopathy and hear t failure who is currently undergoing evaluation for potential LVAD. Psychiatry has been consulted as a part of this comprehensive evaluation to assess for any psychiatric contraindications. Patient reports diagnosis of heart issues in July. In regards to potential LVAD he states "I would do it if I had to." Admits he is nervous, but states he is focused on the endpoint which is more time with his family. He has a family friend who has LVAD and has been in communication with him about what to expect. He understands the process and the need for continued followup and medication compliance. States he has a large support system, including his , son, brot her, and friends. He is compliant with medical recommendations historically. Patient denies any history of major depressive or manic episodes. He denies any history of anxiety including generalized worry, panic attacks. He denies any h istory of trauma related symptoms. He denies any history of psychosis including hallucinations or delusions. Past Psychiatric History: Denies. Past Medical History: Past Medical History: Atrial fibrillation (HCC) Cancer (HCC) Cardiomyopathy (HCC) CHF (congestive heart failure) (HCC) Diabetes mellitus (HCC) Past Surgical History: has a past surgical history that includes Prostatectomy and Total knee arthropl asty. Allergy: No Known Allergies Review of Systems: The review of systems was completed and was negative except as stated in HPI. Vital Signs: BP 137/68 (BP Location: Right arm, Patient position: Supine) | Pulse 83 | Temp 36.6 C (97.8 F) (Oral) | Resp 22 | Ht 1.854 m (6' 1") | Wt 126.2 kg (278 lb 3.5 oz) | SpO2 100% | BMI 36.71 kg/m Home Medications: Prior to Admission medications Medication Sig Start Date End Date Taking? Authorizing Provider cyclobenzaprine (FLEXERIL) 10 MG tablet Take 1 tablet by mouth. 10/07/21 Yes Hist orical Provider, furosemide (LASIX) 80 MG tablet Take 1 tablet by mouth. 09/18/21 Yes Historical Provider, hydrocodone-chlorpheniramine 10-8 mg/5 mL (TUSSIONEX PENNKINETIC) ER suspension Take 5 mL by mouth nightly as needed. 08/18/21 Yes Historical Provider, losartan-hydrochlorothiazide (HYZAAR) 50-12.5 mg per tablet Take 1 tablet by adrian th. 08/07/21 Yes Historical Provider, meloxicam (MOBIC) 15 MG tablet Take 1 tablet by mouth. 01/01/21 Yes Historical P MD eloisa methocarbamoL (ROBAXIN) 500 MG tablet Take 1 tablet by mouth. 08/21/21 Yes Hist orical Provider, NIFEdipine (PROCARDIA-XL, ADALAT CC) 30 MG 24 hr tablet 1 tablet on an empty sto mach 01/30/21 Yes Historical Provider, predniSONE (DELTASONE) 50 MG tablet Take 50 mg by mouth. 08/18/21 Yes Historica l ProviderMD terazosin (HYTRIN) 2 MG capsule 1 capsule at bedtime 01/30/21 Yes Historical Pro vider, zolpidem (AMBIEN CR) 12.5 MG CR tablet 1 tablet at bedtime as needed 10/23/21 Ye s Historical Provider, zolpidem (AMBIEN) 10 mg tablet 1 tablet at bedtime as needed 09/29/21 Yes Histor ical Provider, lisinopriL (PRINIVIL,ZESTRIL) 10 MG tablet Take 10 mg by mouth daily. Histori beatriz Provider, simvastatin (ZOCOR) 10 MG tablet Take 10 mg by mouth. Historical Provider, tramadoL (ULTRAM) 50 mg tablet Take 100 mg by mouth every 6 (six) hours as needmarbin dElian Historical Provider, Current Medications: amiodarone 200 mg Oral Daily aspirin 81 mg Oral Daily atorvastatin 20 mg Oral Nightly finasteride 5 mg Oral Daily fluticasone propionate 1 spray Each Nare Daily insulin lispro 1-6 Units Subcutaneous 4 times daily before meals and nightl y sacubitriL-valsartan 1 tablet Oral BID tamsulosin 0.4 mg Oral Daily Labs: Most Recent Result within the last 7 days Lab Units 01/01/22 0025 WBC TH/uL 6.28 HEMOGLOBIN g/dL 11.4* HEMATOCRIT % 35* PLATELET COUNT Th/uL 219 Most Recent Result within the last 7 days Lab Units 01/01/22 0025 SODIUM mEq/L 122* POTASSIUM mEq/L 4.3 CARBON DIOXIDE mEq/L 23 BLOOD UREA NITROGEN mg/dL 20 CREATININE mg/dL 1.30 CALCIUM mg/dL 8.8 PROTEIN TOTAL SERUM g/dL 6.0 ALKALINE PHOSPHATASE U/L 115 ALANINE AMINOTRANSFERASE U/L 76* ASPARTATE AMINOTRANSFERASE U/L 18 GLUCOSE mg/dL 111* Family Psychiatric History: Denies. 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 Mental Status Examination: Patient is alert and oriented. Cooperative with interview and makes good eye con tact. Grooming is fair, in hospital attire. No abnormal psychomotor activity. Speech is regular rate, rhythm, volume, with fluent language production. Mood is reported as "good". Affect is euthymic. Thought process is linear and goal di rected. Thought content is without suicidal ideation, homicidal ideation, audit ory or visual hallucinations, delusions. Cognition is grossly intact. Memory i s grossly intact. Attention and concentration are grossly intact. Intelligence is judged to be average based on fund of knowledge. Insight and judgment are f air. Diagnosis: No [place] I diagnosis Impression: Anabella Faye is a 71 y.o. male admitted for evaluation for potential heart waller splant. There are no psychiatric contraindications to transplant. We discussed that cardiac patients are at a higher risk for depression/anxiety, to monitor f or issues and seek help if necessary including medications or therapy. Recommendations: 1. There are no active psychiatric issues detected that would be considered a c ontraindication to cardiac transplantation. 2. There are no social or behavioral factors detected that would cause difficul ty during the waiting period, recovery, or postoperatively. He reports having a good support system and seems to understand the importance of compliance with m edications and medical recommendations. 3. There is no history or ongoing abuse of substances that would be considered a contraindication to cardiac transplantation. Total time spent: 45 minutes Dennis Saul MD 01/01/2022 * Salma Rosales MD - 01/01/2022 11:11 AM CDTAssociated Order(s): IP CONSULT TO NEPHROLOGY [facility] NEPHROLOGY CONSULT NOTE NAME: Anabella Faye CPI: [id number] AGE: 71 y.o. : 1950 ADMISSION DATE: 12/31/2021 PRIMARY CARE PROVIDER: No primary care provider on file. HISTORY OF PRESENT ILLNESS: 71 y.o. male with baseline creatinine of unknown presents to [facility] from OSH for LV AD evaluation. He has a past medical history of atrial fibrillation, prostate ca ncer s/p prostatectomy, DMT2, HLD, alcohol use, COVID infection in 09/2021, and r ecent diagnosis of HF. C revealed his HF etiology as non-ischemic. It is belie alexia that this may be secondary to COVID infection. He denies personal or family history of kidney disease. He denies difficulty wit h urination. He does use OTC NSAIDs for pain control at home. US abdomen complete is pending and 24-hour urine protein is in process. Last 7 Days Creatinine trend: 1.4> 1.3 Baseline Creatinine: unknown, but outside records under media tab reveal Cr read ings of 1.0-1.3 within the last month PAST MEDICAL HISTORY: Past Medical History: Diagnosis Date Atrial fibrillation (HCC) Cancer (HCC) Cardiomyopathy (HCC) CHF (congestive heart failure) (HCC) Diabetes mellitus (HCC) PAST SURGICAL HISTORY: Past Surgical History: Procedure Laterality Date PROSTATECTOMY TOTAL KNEE ARTHROPLASTY SOCIAL HISTORY: Social History Socioeconomic History Marital status: Tobacco Use Smoking status: Never Smoker Smokeless tobacco: Never Used Substance and Sexual Activity Alcohol use: Not Currently Drug use: Not Currently Sexual activity: Not Currently FAMILY HISTORY: No family history on file. ALLERGIES: Patient has no known allergies. PRIOR TO ADMISSION MEDICATIONS: Medications Prior to Admission Medication Sig Dispense Refill Last Dose cyclobenzaprine (FLEXERIL) 10 MG tablet Take 1 tablet by mouth. 12/31/2021 at Unknown time furosemide (LASIX) 80 MG tablet Take 1 tablet by mouth. 12/31/2021 at Unkno wn time hydrocodone-chlorpheniramine 10-8 mg/5 mL (TUSSIONEX PENNKINETIC) ER suspens ion Take 5 mL by mouth nightly as needed. 12/31/2021 at Unknown time losartan-hydrochlorothiazide (HYZAAR) 50-12.5 mg per tablet Take 1 tablet by mouth. 12/31/2021 at Unknown time meloxicam (MOBIC) 15 MG tablet Take 1 tablet by mouth. 12/31/2021 at Unknow n time methocarbamoL (ROBAXIN) 500 MG tablet Take 1 tablet by mouth. 12/31/2021 at Unknown time NIFEdipine (PROCARDIA-XL, ADALAT CC) 30 MG 24 hr tablet 1 tablet on an empty stomach 12/31/2021 at Unknown time predniSONE (DELTASONE) 50 MG tablet Take 50 mg by mouth. 12/31/2021 at Unkn own time terazosin (HYTRIN) 2 MG capsule 1 capsule at bedtime 12/31/2021 at Unknown time zolpidem (AMBIEN CR) 12.5 MG CR tablet 1 tablet at bedtime as needed 2021 at Unknown time zolpidem (AMBIEN) 10 mg tablet 1 tablet at bedtime as needed 12/31/2021 at Unknown time lisinopriL (PRINIVIL,ZESTRIL) 10 MG tablet Take 10 mg by mouth daily. 12/31 at Unknown time simvastatin (ZOCOR) 10 MG tablet Take 10 mg by mouth. tramadoL (ULTRAM) 50 mg tablet Take 100 mg by mouth every 6 (six) hours as n eeded. 12/31/2021 at Unknown time CURRENT MEDICATIONS: Current Facility-Administered Medications Medication Dose Route Frequency Provider Last Rate Last Admin acetaminophen (TYLENOL) tablet 325-650 mg 325-650 mg Oral Q6H PRN Agnes Unger MD Or acetaminophen (TYLENOL) suppository 325-650 mg 325-650 mg Rectal Q6H PRN Hemanth Unger MD acetaminophen (TYLENOL) tablet 325-650 mg 325-650 mg Oral Q6H PRN Agnes Unger MD Or acetaminophen (TYLENOL) suppository 325-650 mg 325-650 mg Rectal Q6H PRN Hemanth Unger MD aluminum-magnesium hydroxide-simethicone (MAALOX PLUS) 400-400-40 mg/5 mL martinez spension 15 mL 15 mL Oral Q4H PRN Agnes Unger MD amiodarone (CORDARONE) tablet 200 mg 200 mg Oral Daily Randal Osei 200 mg at 01/01/22 1320 aspirin EC tablet 81 mg 81 mg Oral Daily Agnes Unger MD 81 mg at 0 01/01/22 1320 atorvastatin (LIPITOR) tablet 20 mg 20 mg Oral Nightly Randal Osei 20 mg at 12/31/21 2209 cyclobenzaprine (FLEXERIL) tablet 10 mg 10 mg Oral TID PRN Agnes shelley MD dextrose (D50W) 50 % injection 25-50 mL 25-50 mL Intravenous PRN Agnes medina MD Or dextrose 10% (D10W) bolus 125-250 mL 125-250 mL Intravenous PRN Agnes goldstein MD DOBUTamine (DOBUTREX) infusion 2000 mcg/mL (PMX) 2.5 mcg/kg/min (Order-Spec ific) Intravenous Continuous Agnes Unger MD 9.08 mL/hr at 01/01/22 1318 2 .5 mcg/kg/min at 01/01/22 1318 docusate sodium (COLACE) capsule 100 mg 100 mg Oral BID PRN Agnes jeter MD empagliflozin (JARDIANCE) tablet 10 mg 10 mg Oral Daily Agnes Unger MD finasteride (PROSCAR) tablet 5 mg 5 mg Oral Daily Agnes Unger MD 5 mg at 01/01/22 1325 fluticasone propionate (FLONASE) 50 mcg/actuation nasal spray 1 spray 1 spr ay Each Nare Daily Agnes Unger MD furosemide (LASIX) 10 mg/mL injection furosemide (LASIX) injection 80 mg 80 mg Intravenous BID Agnes Unger MD furosemide (LASIX) injection 80 mg 80 mg Intravenous Once Agnes Unger MD glucagon (GLUCAGEN) injection 1 mg 1 mg Intramuscular PRN Agnes Unger MD Or glucagon (GLUCAGEN) injection 1 mg 1 mg Subcutaneous PRN Agnes Unger MD glucose chewable tablet 16-32 g 16-32 g Oral PRN Agnes Unger MD heparin (porcine) 1,000 unit/mL injection 5,000 Units 5,000 Units Intraveno us PRN Agnes Unger MD 5,000 Units at 01/01/22 0413 Or heparin (porcine) 1,000 unit/mL injection 10,000 Units 10,000 Units Intrave nous PRN Agnes Unger MD heparin 100 units/mL in sodium chloride 0.45% infusion 2-30 Units/kg/hr Int ravenous Continuous Agnes Unger MD Stopped at 01/01/22 1003 insulin lispro (HumaLOG) injection 1-6 Units 1-6 Units Subcutaneous 4 times daily before meals and nightly Agnes Unger MD magnesium sulfate IVPB 4 gram (premix) 4 g Intravenous PRN Agnes shelley MD miconazole nitrate (ALOE VESTA) 2 % ointment Topical TID PRN Agnes chappell MD nitroglycerin (NITROSTAT) SL tablet 0.4 mg 0.4 mg Sublingual Q5 Min PRN Lazaro Unger MD polyethylene glycol (GLYCOLAX) packet 17 g 17 g Oral Daily PRN Agnes courtney MD potassium chloride (KLOR-CON) CR tablet 20 mEq 20 mEq Oral PRN Agnes courtney MD Or potassium bicarb-citric acid (EFFER-K) effervescent tablet 20 mEq 20 mEq Or al PRN Agnes Unger MD Or potassium chloride 10 mEq in 50 mL IVPB 20 mEq Intravenous PRN Agnes courtney MD potassium chloride (KLOR-CON) CR tablet 20 mEq 20 mEq Oral PRN Agnes courtney MD Or potassium bicarb-citric acid (EFFER-K) effervescent tablet 20 mEq 20 mEq Or al PRN Agnes Unger MD Or potassium chloride 20 mEq in 100 mL IVPB 20 mEq Intravenous PRN Agnes goldstein MD sacubitriL-valsartan (ENTRESTO) 24-26 mg per tablet 1 tablet 1 tablet Oral BID Agnes Unger MD 1 tablet at 01/01/22 1320 tamsulosin (FLOMAX) 24 hr capsule 0.4 mg 0.4 mg Oral Daily Agnes shelley MD 0.4 mg at 01/01/22 1320 zolpidem (AMBIEN) tablet 5 mg 5 mg Oral Nightly PRN Agnes Unger MD FAMILY HISTORY: No family history on file. SOCIAL HISTORY: Social History Socioeconomic History Marital status: Tobacco Use Smoking status: Never Smoker Smokeless tobacco: Never Used Substance and Sexual Activity Alcohol use: Not Currently Drug use: Not Currently Sexual activity: Not Currently REVIEW OF SYSTEMS: Negative except as above. PHYSICAL EXAM: BP 117/67 | Pulse 87 | Temp 36.7 C (98.1 F) (Core) | Resp 18 | Ht 1.854 m (6' 1") | Wt 126.2 kg (278 lb 3.5 oz) | SpO2 95% | BMI 36.71 kg/m General Appearance: Alert, cooperative, no distress, appears stated age Head: Normocephalic, without obvious abnormality, atraumatic Eyes: Non-icteric sclera Neck: Supple, symmetrical, trachea midline, JVD present Lungs: Crackles to auscultation in the bases bilaterally, respirations unlab ored Heart: Regular rate and rhythm, S1 and S2 normal, no murmur, rub or gallop Abdomen: Soft, non-tender, bowel sounds active Extremities: Extremities normal, atraumatic, no cyanosis, BLE pitting edema 2+ Psych: Normal mood and affect Neurologic: Alert and oriented x3 DIALYSIS ACCESS: N/A Intake/Output last 24 hours: Intake/Output Summary (Last 24 hours) at 01/01/2022 1419 Last data filed at 01/01/2022 1317 Gross per 24 hour Intake 469.68 ml Output 4151 ml Net -3681.32 ml Weight on Admission: Weight: 128.8 kg (283 lb 14.4 oz) Weight Trend: Vitals: 12/31/21 1935 01/01/22 0445 Weight: 128.8 kg (283 lb 14.4 oz) 126.2 kg (278 lb 3.5 oz) UA: yellow, specific gravity 1.008, pH 5.5, otherwise negative Imaging: US abdomen complete in process Labs & Imaging Data reviewed Medications reviewed ASSESSMENT/PLAN: 71 y.o. male presents to [facility] for LVAD evaluation. Nephrology consulted for LVAD evaluation. Acute kidney injury: Non-oliguric Baseline Creatinine unknown, but Cr 1.0-1.3 in review of outside records. Electrolytes Na 122, K 4.3, Cl 91 Acid base CO2 23 Volume Hypervolemic -Diuresis per primary team Other renal recommendation: Avoid nephrotoxic agents/ IV contrast/ ACEi/ ARB's Keep MAP>65 to keep adequate renal perfusion Does medications per pharmacy Patient ability to proceed with LVAD dependent on imaging and 24-hour urine prot ein results. Staff: Dr. Langston Attending physician attestation to follow. Salma Rosales M.D. Radiology PGY-1 Salma Rosales 01/01/2022 2:19 PM Associated attestation - Ginette Langston MD - 01/01/2022 2:36 PM CDT Nephrology Staff Addendum: I was physically present during the cabezas portion of the service provided by Dr. Qian strange and I participated in the management of the patient. I have personally revi ewed the patient's pertinent notes, labs, imaging & medical studies, hemodynamic data, fluid balance, I/Os and medications. Electronically signed by Ginette Langston MD, FASN, [facility] 01/01/2022 2:36 PM * Tani Brady MD - 01/01/2022 11:07 AM CDTAssociated Order(s): IP CONSULT TO PULMONOLOGY PRIMARY CARE PROVIDER: No primary care provider on file. REFERRING PROVIDER: Dr. Ramos REASON FOR CONSULTATION: LVAD pulmonary evaluation CONSULTING SERVICE: Fam Bain DATE OF SERVICE: 01/01/2022 History of Present Illness: CC; dyspnea 71y/o male transferred from outside hospital for LVAD evaluation due to acute sy stolic heart failure. He has a history of COVID 19 infection. He had a COVID i nfection in 09/2021 that did not require hospitalization. After that time, he did not have significant SOB but did have reduce taste and appetite. He had a TKA in October 2021 and then had dyspnea aftewards that became progressively worse that he had to be admitted to [facility] on 12/03 with dyspnea, LE edema and EF of 10%. He was then transferred to [facility] for a heart cath which showed no ob structive CAD. He was subsequently transferred to [facility] for advanced HF therapies. ROS: He states he is a never smoker. 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 He has worsening LE edema that is pitting. No active chest pain. He feels weak b ut no fever. No prior history of rash, COPD, asthma, or ALO. Pulmonary was consulted for pulmonary suitability for LVAD. Past Medical History: Past Medical History: Diagnosis Date Atrial fibrillation (HCC) Cancer (HCC) Cardiomyopathy (HCC) CHF (congestive heart failure) (HCC) Diabetes mellitus (HCC) Past Surgical History: Past Surgical History: Procedure Laterality Date PROSTATECTOMY TOTAL KNEE ARTHROPLASTY Current Meds: Current Facility-Administered Medications Medication Dose Route Frequency Provider Last Rate Last Admin acetaminophen (TYLENOL) tablet 325-650 mg 325-650 mg Oral Q6H PRN Susan castaneda MD Or acetaminophen (TYLENOL) suppository 325-650 mg 325-650 mg Rectal Q6H PRN Vi luann Caceres MD acetaminophen (TYLENOL) tablet 325-650 mg 325-650 mg Oral Q6H PRN Susan castaneda MD Or acetaminophen (TYLENOL) suppository 325-650 mg 325-650 mg Rectal Q6H PRN Vi luann Caceres MD aluminum-magnesium hydroxide-simethicone (MAALOX PLUS) 400-400-40 mg/5 mL martinez spension 15 mL 15 mL Oral Q4H PRN Susan Caceres MD amiodarone (CORDARONE) tablet 200 mg 200 mg Oral Daily Susan Caceres MD 200 mg at 12/31/212208 aspirin EC tablet 81 mg 81 mg Oral Daily Susan Caceres MD 81 mg at 12/06 atorvastatin (LIPITOR) tablet 20 mg 20 mg Oral Nightly Susan Caceres MD 20 mg at 12/31/212208 cyclobenzaprine (FLEXERIL) tablet 10 mg 10 mg Oral TID PRN Susan Caceres MD dextrose (D50W) 50 % injection 25-50 mL 25-50 mL Intravenous PRN Susan carrington MD Or dextrose 10% (D10W) bolus 125-250 mL 125-250 mL Intravenous PRN Susan john MD DOBUTamine (DOBUTREX) infusion 2000 mcg/mL (PMX) 5 mcg/kg/min (Order-Specif ic) Intravenous Continuous Susan Caceres MD 18.15 mL/hr at 12/31/212201 5 mcg /kg/min at 12/31/212201 docusate sodium (COLACE) capsule 100 mg 100 mg Oral BID PRN Susan Caceres MD finasteride (PROSCAR) tablet 5 mg 5 mg Oral Daily Susan Caceres MD 5 mg at 12/31/212208 fluticasone propionate (FLONASE) 50 mcg/actuation nasal spray 1 spray 1 spr ay Each Nare Daily Susan Caceres MD glucagon (GLUCAGEN) injection 1 mg 1 mg Intramuscular PRN Randal Boles D Or glucagon (GLUCAGEN) injection 1 mg 1 mg Subcutaneous PRN Susan Caceres MD glucose chewable tablet 16-32 g 16-32 g Oral PRN Susan Caceres MD heparin (porcine) 1,000 unit/mL injection 5,000 Units 5,000 Units Intraveno us PRN Susan Caceres MD 5,000 Units at 01/01/22 0413 Or heparin (porcine) 1,000 unit/mL injection 10,000 Units 10,000 Units Intrave nous PRN Susan Caceres MD heparin 100 units/mL in sodium chloride 0.45% infusion 2-30 Units/kg/hr Int ravenous Continuous Susan Caceres MD Stopped at 01/01/22 1003 insulin lispro (HumaLOG) injection 1-6 Units 1-6 Units Subcutaneous 4 times daily before meals and nightly Susan Caceres MD magnesium sulfate IVPB 4 gram (premix) 4 g Intravenous PRN Susan Caceres MD miconazole nitrate (ALOE VESTA) 2 % ointment Topical TID PRN Susan Rodríguez i, MD nitroglycerin (NITROSTAT) SL tablet 0.4 mg 0.4 mg Sublingual Q5 Min PRN Yoselin Caceres MD polyethylene glycol (GLYCOLAX) packet 17 g 17 g Oral Daily PRN Susan ingram MD potassium chloride (KLOR-CON) CR tablet 20 mEq 20 mEq Oral PRN Susan ingram MD Or potassium bicarb-citric acid (EFFER-K) effervescent tablet 20 mEq 20 mEq Or al PRN Susan Caceres MD Or potassium chloride 10 mEq in 50 mL IVPB 20 mEq Intravenous PRN Susan ingram MD potassium chloride (KLOR-CON) CR tablet 20 mEq 20 mEq Oral PRN Susan ingram MD Or potassium bicarb-citric acid (EFFER-K) effervescent tablet 20 mEq 20 mEq Or al PRN Susan Caceres MD Or potassium chloride 20 mEq in 100 mL IVPB 20 mEq Intravenous PRN Susan john MD sacubitriL-valsartan (ENTRESTO) 24-26 mg per tablet 1 tablet 1 tablet Oral BID Susan Caceres MD 1 tablet at 12/31/21 2238 tamsulosin (FLOMAX) 24 hr capsule 0.4 mg 0.4 mg Oral Daily Susan Caceres MD 0.4 mg at 12/31/21 2209 zolpidem (AMBIEN) tablet 5 mg 5 mg Oral Nightly PRN Susan Caceres MD Allergies: Patient has no known allergies. Social History: Social History Tobacco Use Smoking status: Never Smoker Smokeless tobacco: Never Used Substance Use Topics Alcohol use: Not Currently Drug use: Not Currently Family History: No family history on file. Review of Systems 10 systems were reviewed and were negative, except as stated above. Physical Exam Vital signs: BP 137/68 (BP Location: Right arm, Patient position: Supine) | Pul se 83 | Temp 36.6 C (97.8 F) (Oral) | Resp 22 | Ht 1.854 m (6' 1") | Wt 126.2 kg (278 lb 3.5 oz) | SpO2 100% | BMI 36.71 kg/m General: adult male in no apparent distress appears tired HEENT: oropharynx moist without erythema, pupils equal and reactive to light Neck: supple Lymphatic: No cervical or supraclavicular lymphadenopathy Lungs: anteriorly: clear to auscultation without wheezes, rhonchi, or rales Heart: S1, S2, regular rate and rhythm. 2+ lower extremity edema bilaterally Abdomen: soft, nontender, nondistended Skin: no rashes noted. No cyanosis. Musculoskeletal: no clubbing Neurologic: no focal deficits are noted Psychiatric: appropriate mood and affect. Laboratory: Lab Results Component Value Date WBC 6.28 01/01/2022 RBC 4.06 (L) 01/01/2022 HGB 11.4 (L) 01/01/2022 HCT 35 (L) 01/01/2022 PLT 219 01/01/2022 Lab Results Component Value Date NA 122 (L) 01/01/2022 K 4.3 01/01/2022 CO2 23 01/01/2022 GAP 7 01/01/2022 CALCIUM 8.8 01/01/2022 GLU 111 (H) 01/01/2022 BUN 20 01/01/2022 CREAT 1.30 01/01/2022 GFRFAA 48.8 (L) 01/01/2022 GFRFNAA 40.3 (L) 01/01/2022 GFRMAA 65.8 01/01/2022 GFRMNAA 54.3 (L) 01/01/2022 Diagnostic Studies: I have personally reviewed the patient's CXR 01/01/2022: IMPRESSION 1. Right greater than left perihilar and bibasilar heterogeneous opacities, likely representing moderate interstitial pulmonary edema. Superimposed infection or aspiration is not excluded. 2. Small right greater than left pleural effusions. 3. Cardiomegaly. TTE: 01/01/2022: IMPRESSION 1. Severe left ventricular dilatation. LVEDVI= 130 ml/m2. 2. Severely reduced left ventricular systolic function, with a calculated ejec tion fraction of 24%. 3. Global hypokinesis with some regional variability. 4. Severe right ventricular dilatation with severely reduced systolic function . 5. Mild aortic stenosis. 6. Mild MR. Xfdp-ph-iboatzul TR. 7. Estimated central venous and PA pressures are elevated. No previous study available for comparison. Pulmonary Function Testing: none Assessment/Plan 1. Acute decompensated systolic heart failure 2. NICM 3. Dyspnea 4. Lower extremity edema 5. History of COVID infection He has no risk factors for chronic lung disease and no prior symptoms suggestive of such. His COVID infection was mild and there is a low risk of persistent lung disease in mild infections. CXR is consistent with pulmonary edema but his CT is pending. Will await results of CT of chest. PFTs were ordered but I do not think they tiesha l add much to his evaluation if CT is consistent with pulmonary edema given his lack of smoking history and no respiratory symptoms prior to his cardiomyopathy. Thank you for the opportunity to participate in this patient's care. Edson Brady MD [facility] Interventional Pulmonology, Pulmonology, and Critical Care [facility] * Hamzah Goode NP - 01/01/2022 10:33 AM CDTAssociated Order(s): IP CONSULT TO GASTROENTEROLOGY [facility] GASTROINTESTINAL CONSULT NOTE Patient: Anabella Faye Age: 71 y.o. : 1950 PRIMARY CARE PROVIDER: No primary care provider on file. ATTENDING PHYSICIAN: Maxine Song MD CONSULTING PHYSICIAN: Hamzah Goode NP DATE OF CONSULTATION: 01/01/2022 REASON FOR CONSULTATION: Gastrointestinal, hepatobiliary and colorectal screen a s part of LVAD evaluation HISTORY OF PRESENT ILLNESS: Anabella Faye is a 71 y.o. male with PMH significa nt for atrial fibrillation, history of prostate cancer status post prostatectomy , type II diabetes, cardiomyopathy and heart failure he was transferred from an outside facility due to shortness of breath and bilateral lower extremity edema who was found to be in acute on chronic heart failure. GI is being consulted fo r the reason mentioned above. The patient denies any significant history of GERD. Denies nausea, vomiting, re gurgitation, dysphagia or abdominal pain. He does take Meloxicam almost daily. Does suffer from intermittent constipation which she contributes to his medicati ons. Associated symptoms include mild generalized abdominal bloating. He uses stool softeners as needed. Denies any change in bowel habits, diarrhea, hematoc hezia or melena. Reports her last colonoscopy was approximately 2 years ago whi ch was normal. Denies any known family history of colorectal cancer. Denies any history of anemia. Serum iron on admission was 28 with an iron trans sanchez percentage of 10. Ferritin 236. Hemoglobin 11.4 with an MCV of 87. Denies any known family history of hepatobiliary disease. Denies any heavy EtOH use or abuse. Denies any illicit drug use. Denies jaundice, icterus, ascites, pruritus or excessive dark urine. Upon admission ALT was elevated at 76 with a bilirubin of 1.4. Ultrasound is currently pending. REVIEW OF SYSTEMS: A 10 point review of systems was obtained and was negative except as above. MEDICAL HISTORY: Current Facility-Administered Medications Medication Dose Route Frequency Provider Last Rate Last Admin acetaminophen (TYLENOL) tablet 325-650 mg 325-650 mg Oral Q6H PRN Susan castaneda MD Or acetaminophen (TYLENOL) suppository 325-650 mg 325-650 mg Rectal Q6H PRN Vi luann Caceres MD acetaminophen (TYLENOL) tablet 325-650 mg 325-650 mg Oral Q6H PRN Susan castaneda MD Or acetaminophen (TYLENOL) suppository 325-650 mg 325-650 mg Rectal Q6H PRN Vi luann Caceres MD aluminum-magnesium hydroxide-simethicone (MAALOX PLUS) 400-400-40 mg/5 mL martinez spension 15 mL 15 mL Oral Q4H PRN Susan Caceres MD amiodarone (CORDARONE) tablet 200 mg 200 mg Oral Daily Susan Caceres MD 200 mg at 12/31/212208 aspirin EC tablet 81 mg 81 mg Oral Daily Susan Caceres MD 81 mg at 12/06 atorvastatin (LIPITOR) tablet 20 mg 20 mg Oral Nightly Susan Caceres MD 20 mg at 12/31/212208 cyclobenzaprine (FLEXERIL) tablet 10 mg 10 mg Oral TID PRN Susan Caceres MD dextrose (D50W) 50 % injection 25-50 mL 25-50 mL Intravenous PRN Susan carrington MD Or dextrose 10% (D10W) bolus 125-250 mL 125-250 mL Intravenous PRN Susan john MD digoxin (LANOXIN) tablet 250 mcg 250 mcg Oral QPM Susan Caceres MD 250 mcg at 12/31/212208 DOBUTamine (DOBUTREX) infusion 2000 mcg/mL (PMX) 5 mcg/kg/min (Order-Specif ic) Intravenous Continuous Susan Caceres MD 18.15 mL/hr at 12/31/212201 5 mcg /kg/min at 12/31/212201 docusate sodium (COLACE) capsule 100 mg 100 mg Oral BID PRN Susan Caceres MD finasteride (PROSCAR) tablet 5 mg 5 mg Oral Daily Susan Caceres MD 5 mg at 12/31/212208 fluticasone propionate (FLONASE) 50 mcg/actuation nasal spray 1 spray 1 spr ay Each Nare Daily Susan Caceres MD glucagon (GLUCAGEN) injection 1 mg 1 mg Intramuscular PRN Randal Boles D Or glucagon (GLUCAGEN) injection 1 mg 1 mg Subcutaneous PRN Susan Caceres MD glucose chewable tablet 16-32 g 16-32 g Oral PRN Susan Caceres MD heparin (porcine) 1,000 unit/mL injection 5,000 Units 5,000 Units Intraveno us PRN Susan Caceres MD 5,000 Units at 01/01/22 0413 Or heparin (porcine) 1,000 unit/mL injection 10,000 Units 10,000 Units Intrave nous PRN Susan Caceres MD heparin 100 units/mL in sodium chloride 0.45% infusion 2-30 Units/kg/hr Int ravenous Continuous Susan Caceres MD Stopped at 01/01/22 1003 insulin lispro (HumaLOG) injection 1-6 Units 1-6 Units Subcutaneous 4 times daily before meals and nightly Susan Caceres MD magnesium sulfate IVPB 4 gram (premix) 4 g Intravenous PRN Susan Caceres MD miconazole nitrate (ALOE VESTA) 2 % ointment Topical TID PRN Susan Rodríguez i, MD nitroglycerin (NITROSTAT) SL tablet 0.4 mg 0.4 mg Sublingual Q5 Min PRN Yoselin Caceres MD polyethylene glycol (GLYCOLAX) packet 17 g 17 g Oral Daily PRN Susan ingram MD potassium chloride (KLOR-CON) CR tablet 20 mEq 20 mEq Oral PRN Susan ingram MD Or potassium bicarb-citric acid (EFFER-K) effervescent tablet 20 mEq 20 mEq Or al PRN Susan Caceres MD Or potassium chloride 10 mEq in 50 mL IVPB 20 mEq Intravenous PRN Susan ingram MD potassium chloride (KLOR-CON) CR tablet 20 mEq 20 mEq Oral PRN Susan ingram MD Or potassium bicarb-citric acid (EFFER-K) effervescent tablet 20 mEq 20 mEq Or al PRN Susan Caceres MD Or potassium chloride 20 mEq in 100 mL IVPB 20 mEq Intravenous PRN Susan john MD sacubitriL-valsartan (ENTRESTO) 24-26 mg per tablet 1 tablet 1 tablet Oral BID Susan Caceres MD 1 tablet at 12/31/21 223 tamsulosin (FLOMAX) 24 hr capsule 0.4 mg 0.4 mg Oral Daily Susan Caceres MD 0.4 mg at 12/31/212208 zolpidem (AMBIEN) tablet 5 mg 5 mg Oral Nightly PRN Susan Caceres MD Past Medical History: Diagnosis Date Atrial fibrillation (HCC) Cancer (HCC) Cardiomyopathy (HCC) CHF (congestive heart failure) (HCC) Diabetes mellitus (HCC) SURGICAL HISTORY: Past Surgical History: Procedure Laterality Date PROSTATECTOMY TOTAL KNEE ARTHROPLASTY PRIOR TO ADMISSION MEDICATIONS: Medications Prior to Admission Medication Sig cyclobenzaprine (FLEXERIL) 10 MG tablet Take 1 tablet by mouth. furosemide (LASIX) 80 MG tablet Take 1 tablet by mouth. hydrocodone-chlorpheniramine 10-8 mg/5 mL (TUSSIONEX PENNKINETIC) ER suspens ion Take 5 mL by mouth nightly as needed. losartan-hydrochlorothiazide (HYZAAR) 50-12.5 mg per tablet Take 1 tablet by mouth. meloxicam (MOBIC) 15 MG tablet Take 1 tablet by mouth. methocarbamoL (ROBAXIN) 500 MG tablet Take 1 tablet by mouth. NIFEdipine (PROCARDIA-XL, ADALAT CC) 30 MG 24 hr tablet 1 tablet on an empty stomach predniSONE (DELTASONE) 50 MG tablet Take 50 mg by mouth. terazosin (HYTRIN) 2 MG capsule 1 capsule at bedtime zolpidem (AMBIEN CR) 12.5 MG CR tablet 1 tablet at bedtime as needed zolpidem (AMBIEN) 10 mg tablet 1 tablet at bedtime as needed lisinopriL (PRINIVIL,ZESTRIL) 10 MG tablet Take 10 mg by mouth daily. simvastatin (ZOCOR) 10 MG tablet Take 10 mg by mouth. tramadoL (ULTRAM) 50 mg tablet Take 100 mg by mouth every 6 (six) hours as n eeded. MED LIST: Scheduled Meds: amiodarone 200 mg Oral Daily aspirin 81 mg Oral Daily atorvastatin 20 mg Oral Nightly digoxin 250 mcg Oral QPM finasteride 5 mg Oral Daily fluticasone propionate 1 spray Each Nare Daily insulin lispro 1-6 Units Subcutaneous 4 times daily before meals and nightl y sacubitriL-valsartan 1 tablet Oral BID tamsulosin 0.4 mg Oral Daily Continuous Infusions: DOButamine 5 mcg/kg/min (12/31/212) heparin Stopped (01/01/22 1003) PRN Meds:.acetaminophen OR acetaminophen, acetaminophen OR acetaminophen , aluminum-magnesium hydroxide-simethicone, cyclobenzaprine, dextrose 50% OR dextrose 10%, docusate sodium, glucagon OR glucagon, glucose, heparin (porc ine) OR heparin (porcine), magnesium sulfate, miconazole nitrate, nitroglyce rin, polyethylene glycol, potassium chloride OR potassium bicarb-citric acid OR potassium chloride in water, potassium chloride OR potassium bicarb- citric acid OR potassium chloride in water, zolpidem ALLERGIES: No Known Allergies SOCIAL HISTORY: Social History Socioeconomic History Marital status: Tobacco Use Smoking status: Never Smoker Smokeless tobacco: Never Used Substance and Sexual Activity Alcohol use: Not Currently Drug use: Not Currently Sexual activity: Not Currently FAMILY HISTORY: No family history on file. PHYSICAL EXAM: General: awake, alert, NAD HENT: normocephalic, atraumatic, mucus membranes moist Eyes: PERRL, anicteric Neuro: AOx3, ambulatory CV: HRRR S1S2, no pedal edema Resp: CTA, unlabored respirations, on RA GI: abdomen is soft, ND, NT, + bowel sounds Skin: warm, dry, no jaundice LAB RESULTS: Last CBC: Most Recent Result within the last 7 days Lab Units 01/01/22 0025 WBC TH/uL 6.28 HEMOGLOBIN g/dL 11.4* HEMATOCRIT % 35* PLATELET COUNT Th/uL 219 Last BMP: Most Recent Result within the last 7 days Lab Units 01/01/22 0025 SODIUM mEq/L 122* POTASSIUM mEq/L 4.3 CARBON DIOXIDE mEq/L 23 BLOOD UREA NITROGEN mg/dL 20 CREATININE mg/dL 1.30 CALCIUM mg/dL 8.8 Last CMP: Most Recent Result within the last 7 days Lab Units 01/01/22 0025 SODIUM mEq/L 122* POTASSIUM mEq/L 4.3 CARBON DIOXIDE mEq/L 23 BLOOD UREA NITROGEN mg/dL 20 CREATININE mg/dL 1.30 CALCIUM mg/dL 8.8 PROTEIN TOTAL SERUM g/dL 6.0 ALKALINE PHOSPHATASE U/L 115 ALANINE AMINOTRANSFERASE U/L 76* ASPARTATE AMINOTRANSFERASE U/L 18 Last Lipase: No lab components to display Last Protime/INR: Most Recent Result within the last 7 days Lab Units 12/31/212043 PROTIME Sec 16.2* INR 1.3* RADIOLOGY RESULTS: XR Chest single view frontal Result Date: 01/01/2022 1. Right greater than left perihilar and bibasilar heterogeneous opacities, likely representing moderate interstitial pulmonary edema. Superimposed infection or aspiration is not excluded. 2. Small right greater than left pleural effusions. 3. Cardiomegaly. ATTESTATION STATEMENT: The Staff Radiologist has personally reviewed the images and dictated, reviewed, or edited the final report. READING SITE: [facility] PRIOR ENDOSCOPY RESULTS: Reported normal EGD on colonoscopy approximately 2 years ago performed at the [facility] in [place] ASSESSMENT/PLAN: Mr. Anabella Faye is a pleasant 71-year-old male currently admitted with acute on chronic heart failure and LVAD evaluation. GI consult as part of this evalua tion *Colorectal screening -Reports colonoscopy 2 years ago which was normal. No family history. No histo ry of colonic polyps. -Will request records from-the [facility] in [place]. *Hepatobiliary screening *Elevated ALT *Mild hyperbilirubinemia 1.4 Suspect mild ALT elevation and hyperbilirubinemia secondary to congestive hepato diego. -Will await abdominal imaging and acute hepatitis panel results for any further recommendations. *Upper GI No red flag symptoms such as unintentional weight loss, dysphagia or persistent GERD that warrants upper endoscopy -Will request EGD records from the [facility] in [place] *Iron deficiency -Will need to see if the patient was iron deficient at the time of his last EGD and colonoscopy. If he was then repeat endoscopy is not warranted however if he was not EGD and colonoscopy would be recommended. These could be done in the o utpatient setting in the near future versus inpatient setting next week. Thank you for allowing us to participate in this pt's care. Please feel free to call with and further questions or concerns. This treatment plan was discussed w ith Dr. Kike Guillen. JIAN Keenan Electronically signed by Hamzah Goode NP 01/01/2022 10:34 AM Associated attestation - Kike Guillen MD - 01/01/2022 4:49 PM CDT I reviewed and discussed the assessment and recommendations as detailed by [facility] Practice Provider. I also reviewed relevant imaging and laboratory studies. I agree with the assessment, recommended evaluation/studies, and treatment plan as detailed. * Tanya Solorzano NP - 01/01/2022 10:02 AM CDTAssociated Order(s): IP CONSULT TO CARDIOVASCULAR SURGERY ([facility] ONLY) [facility] Cardiothoracic and Vascular E&M Date: 01/01/2022 Chief Complaint: Shortness of breath and edema PCP: No primary care provider on file. Requesting Physician: Dr. Song Reason for consult: LVAD evaluation HPI: Mr. Faye is a 71 year old male transferred from [facility] in [place] for advanced heart failure therapy evaluation. He resides in [place], [place]. PMH includes HTN, HLD, type II DM, hx COVID-19 infection in 09/2021, p rostate cancer s/p prostatectomy. He denies history of prior cardiac issues. 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 He has history of prior h eavy alcohol use, but not for quite some time, only occasional alcohol use at is point. He tested positive for COVID-19 in late September 2021, with symptoms of mild fati kristen and loss of taste at that time. He did not require hospitalization. He under went scheduled right knee replacement on 10/28/2021. Post op course was initially unremarkable and he discharged to home. He reports onset of shortness of breath and bilateral lower extremity edema within 1 week or so of discharge. He was vi siting his son in [place], [place] in mid November [facility] He was admitted with heart failure. Echo reportedly showed EF 10%, modera te to severe aortic stenosis. He was found to have right pleural effusion, treat ed with thoracentesis, which was transudative in appearance. He also had CLAYTON. He was diuresed, started on dobutamine infusion with subsequent 10 pound weight lo ss. He developed Afib and was started on anticoagulation with heparin gtt. He wa s subsequently transferred to [facility] for ischemic evaluati on. He underwent left heart cath, which showed no significant disease. He had VT , requiring cardioversion. He was initiated on amiodarone. He was started on GDM T, but developed CLAYTON and hyperkalemia with lisinopril and spironolactone. He had elevated transaminases. He was treated with vancomycin for staph CAUTI. He has been transferred for consideration for advanced heart failure therapies. He underwent echocardiogram 01/01/2022, revealing LVEF 24%, severe LV dilatation, severe RV dilatation, mild , mild MR, mild to moderate TR. [facility] CTS has been asked to evaluate him for consideration for LVAD. Past Medical History: Past Medical History: Diagnosis Date Atrial fibrillation (HCC) Cancer (HCC) Cardiomyopathy (HCC) CHF (congestive heart failure) (HCC) Diabetes mellitus (HCC) Past Surgical History: Past Surgical History: Procedure Laterality Date PROSTATECTOMY TOTAL KNEE ARTHROPLASTY Social History: Social History Socioeconomic History Marital status: Tobacco Use Smoking status: Never Smoker Smokeless tobacco: Never Used Substance and Sexual Activity Alcohol use: Not Currently Drug use: Not Currently Sexual activity: Not Currently Family History: Mother at 75 of Parkinson's Father at 77, with hx CVA, CAD Allergies: No Known Allergies Medications: Current Facility-Administered Medications Medication Dose Route Frequency Provider Last Rate Last Admin acetaminophen (TYLENOL) tablet 325-650 mg 325-650 mg Oral Q6H PRN Susan castaneda MD Or acetaminophen (TYLENOL) suppository 325-650 mg 325-650 mg Rectal Q6H PRN Vi luann Caceres MD acetaminophen (TYLENOL) tablet 325-650 mg 325-650 mg Oral Q6H PRN Susan castaneda MD Or acetaminophen (TYLENOL) suppository 325-650 mg 325-650 mg Rectal Q6H PRN Vi luann Caceres MD aluminum-magnesium hydroxide-simethicone (MAALOX PLUS) 400-400-40 mg/5 mL martinez spension 15 mL 15 mL Oral Q4H PRN Susan Caceres MD amiodarone (CORDARONE) tablet 200 mg 200 mg Oral Daily Susan Caceres MD 200 mg at 12/31/212208 aspirin EC tablet 81 mg 81 mg Oral Daily Susan Caceres MD 81 mg at 12/06 atorvastatin (LIPITOR) tablet 20 mg 20 mg Oral Nightly Susan Caceres MD 20 mg at 12/31/212208 cyclobenzaprine (FLEXERIL) tablet 10 mg 10 mg Oral TID PRN Susan Caceres MD dextrose (D50W) 50 % injection 25-50 mL 25-50 mL Intravenous PRN Susan carrington MD Or dextrose 10% (D10W) bolus 125-250 mL 125-250 mL Intravenous PRN Susan john MD DOBUTamine (DOBUTREX) infusion 2000 mcg/mL (PMX) 5 mcg/kg/min (Order-Specif ic) Intravenous Continuous Susan Caceres MD 18.15 mL/hr at 12/31/212201 5 mcg /kg/min at 12/31/212201 docusate sodium (COLACE) capsule 100 mg 100 mg Oral BID PRN Susan Caceres MD finasteride (PROSCAR) tablet 5 mg 5 mg Oral Daily Susan Caceres MD 5 mg at 12/31/212208 fluticasone propionate (FLONASE) 50 mcg/actuation nasal spray 1 spray 1 spr ay Each Nare Daily Susan Caceres MD glucagon (GLUCAGEN) injection 1 mg 1 mg Intramuscular PRN Randal Boles D Or glucagon (GLUCAGEN) injection 1 mg 1 mg Subcutaneous PRN Susan Caceres MD glucose chewable tablet 16-32 g 16-32 g Oral PRN Susan Caceres MD heparin (porcine) 1,000 unit/mL injection 5,000 Units 5,000 Units Intraveno us PRN Susan Caceres MD 5,000 Units at 01/01/22 0413 Or heparin (porcine) 1,000 unit/mL injection 10,000 Units 10,000 Units Intrave nous PRN Susan Caceres MD heparin 100 units/mL in sodium chloride 0.45% infusion 2-30 Units/kg/hr Int ravenous Continuous Susan Caceres MD Stopped at 01/01/22 1003 insulin lispro (HumaLOG) injection 1-6 Units 1-6 Units Subcutaneous 4 times daily before meals and nightly Susan Caceres MD magnesium sulfate IVPB 4 gram (premix) 4 g Intravenous PRN Susan Caceres MD miconazole nitrate (ALOE VESTA) 2 % ointment Topical TID PRN Susan Rodríguez i, MD nitroglycerin (NITROSTAT) SL tablet 0.4 mg 0.4 mg Sublingual Q5 Min PRN Yoselin Caceres MD polyethylene glycol (GLYCOLAX) packet 17 g 17 g Oral Daily PRN Susan ingram MD potassium chloride (KLOR-CON) CR tablet 20 mEq 20 mEq Oral PRN Susan ingram MD Or potassium bicarb-citric acid (EFFER-K) effervescent tablet 20 mEq 20 mEq Or al PRN Susan Caceres MD Or potassium chloride 10 mEq in 50 mL IVPB 20 mEq Intravenous PRN Susan ingram MD potassium chloride (KLOR-CON) CR tablet 20 mEq 20 mEq Oral PRN Susan ingram MD Or potassium bicarb-citric acid (EFFER-K) effervescent tablet 20 mEq 20 mEq Or al PRN Susan Caceres MD Or potassium chloride 20 mEq in 100 mL IVPB 20 mEq Intravenous PRN Susan john MD sacubitriL-valsartan (ENTRESTO) 24-26 mg per tablet 1 tablet 1 tablet Oral BID Susan Caceres MD 1 tablet at 12/31/218 tamsulosin (FLOMAX) 24 hr capsule 0.4 mg 0.4 mg Oral Daily Susan Caceres MD 0.4 mg at 12/31/212208 zolpidem (AMBIEN) tablet 5 mg 5 mg Oral Nightly PRN Susan Caceres MD Imaging: Results for orders placed during the hospital encounter of 12/31/21 Echo Complete with Doppler and Color Flow Impression 1. Severe left ventricular dilatation. LVEDVI= 130 ml/m2. 2. Severely reduced left ventricular systolic function, with a calculated ejecti on fraction of 24%. 3. Global hypokinesis with some regional variability. 4. Severe right ventricular dilatation with severely reduced systolic function. 5. Mild aortic stenosis. 6. Mild MR. [id number] TR. 7. Estimated central venous and PA pressures are elevated. No previous study available for comparison. Dr. Justin Powers MD (Electronically Signed) Final Date: 01 January 2022 11:27 Review of Systems 10 points reviewed and found negative except as noted in the HPI, or below: Review of Systems Constitutional: Positive for fatigue. Negative for activity change, appetite mateo nge, chills, fever and unexpected weight change. HENT: Negative for congestion, dental problem, ear pain, sinus pain, sore throat and trouble swallowing. Eyes: Negative for pain and visual disturbance. + reading glasses Respiratory: Positive for shortness of breath. Negative for apnea, cough and whe ezing. Cardiovascular: Positive for leg swelling. Negative for chest pain and palpitati ons. + palpitations, + PND, + orthopnea Gastrointestinal: Positive for abdominal distention and constipation. Negative f or abdominal pain, diarrhea, nausea and vomiting. Endocrine: Negative for cold intolerance and heat intolerance. Genitourinary: Negative for dysuria, frequency and hematuria. Hx hematuria, UTI at outside hospital Musculoskeletal: Negative for arthralgias, gait problem and myalgias. Recent right knee replacement Skin: Negative for rash and wound. Allergic/Immunologic: Negative. Neurological: Positive for dizziness and weakness. Negative for seizures, syncop e and headaches. Hematological: Does not bruise/bleed easily. Psychiatric/Behavioral: Negative for confusion and dysphoric mood. The patient i s not nervous/anxious. Physical Exam: Vitals: 01/01/22 0730 01/01/22 1043 BP: 130/77 137/68 Pulse: 78 83 Resp: 16 22 Temp: 36.4 C (97.5 F) 36.6 C (97.8 F) SpO2: 99% 100% Weight: Height: Physical Exam Constitutional: Appearance: He is well-developed. He is obese. Comments: Fatigued, NAD HENT: Head: Normocephalic and atraumatic. Nose: Nose normal. Eyes: Extraocular Movements: Extraocular movements intact. Conjunctiva/sclera: Conjunctivae normal. Pupils: Pupils are equal, round, and reactive to light. Neck: Thyroid: No thyromegaly. Cardiovascular: Rate and Rhythm: Normal rate and regular rhythm. Pulses: Radial pulses are 1+ on the right side and 1+ on the left side. Femoral pulses are 1+ on the right side and 1+ on the left side. Dorsalis pedis pulses are 1+ on the right side and 1+ on the left side. Heart sounds: Normal heart sounds. No murmur heard. Pulmonary: Effort: Pulmonary effort is normal. Breath sounds: Normal breath sounds. No wheezing or rales. Abdominal: General: Bowel sounds are normal. There is no distension. Palpations: Abdomen is soft. There is no mass. Tenderness: There is no abdominal tenderness. Comments: Obese, firm, rounded Musculoskeletal: General: No deformity. Normal range of motion. Cervical back: Normal range of motion and neck supple. Right lower le+ Pitting Edema present. Left lower le+ Pitting Edema present. Skin: General: Skin is dry. Findings: No rash. Comments: Extremities cool Neurological: General: No focal deficit present. Mental Status: He is alert and oriented to person, place, and time. Psychiatric: Mood and Affect: Mood normal. Behavior: Behavior normal. Assessment: 1. Acute systolic heart failure 2. Sustained VT s/p cardioversion 12/11 3. Persistent Afib 4. CLAYTON 5. Hypothyroidism 6. Hyponatremia 7. Elevated transaminases 8. Type II DM 9. HLD 10. Hx prostate cancer s/p prostatectomy 11. Hx hematuria during hospitalization at OSH 12. Recent UTI, treated 13. Hx COVID-19 infection 09/2021 Plan: Surgeon will evaluate Mr. Faye with further recommendations to follow. Thank brock mendoza for allowing us to participate in the care of your patient. SHIVA Alas 01/01/2022 11:24 AM Associated attestation - Niurka Hayden MD - 01/01/2022 2:00 PM CDT Agree with note above. 71 y/o M who was transferred here for advanced heart ther apies evaluation. She has a history of HTN, HLD, DM and recent covid infection i n September. He follows at the [facility]. He did require [facility] following his COVID infection. He denies knowing of any heart disease prior to this. During recent admission in November at OSH, he was found to have heart failu re with echo showing a severely reduced EF around 10% and possible . He underw ent heart cath which showed no significant CAD. During this course he has had anjana uts of a-fib requiring anticoagulation and amiodarone, as well as VT which requi red cardioversion. He has been maintained on dobutamine. He was attempted on GDM T but was limited due to transaminitis and CLAYTON. All studies including echo obtained this admission reviewed. He has a very reduc ed EF with LV and RV dilation and significant RV dysfunction as well. Mild . [facility], report pending. He is planned to have a cardiac MRI to better determine the cause of his significant heart failure. Will need to review his RHC pressures once available as well. He would be at significant risk of RV failure/dysfunction if LVAD were to be con sidered given his RV dilation and poor RV function currently. Will need to obtai n studies and medical optimization and discuss at multi-disciplinary conference. Niurka Hayden MD * Sandy Keen MD - 01/01/2022 6:38 AM CDTAssociated Order(s): IP CONSULT TO ENDOCRINOLOGY [facility] ENDOCRINOLOGY CONSULT NOTE Patient: Anabella Faye Age: 71 y.o. : 1950 PPE Statement: Sandy Keen MD used Green precautions (Level 1 mask, eye pro tection, and gloves). REASON FOR CONSULTATION: Hypothyroidism ASSESSMENT/PLAN: 1. Hypothyroidism - with elevated TSH of 8 and low Free T4 of 0.8 in this 71 yea r old with cardiomyopathy likely related to COVID 19. I have reviewed with the patient and his that he does have multiple symptoms of hypothyroidism. His ongoing use of amiodarone is the likely greatest risk. We have agreed based on symptoms and low levels to treat. We are starting levothyroxine 25 mcg daily. Reviewed that this will take some time to reach steady state. We are using a v erica low dose with plans for slow up titration given his cardiovascular concerns. Endocrinology will sign off - he will need TFT's in 6 weeks 2. Cardiomyopathy -most likely related to COVID-19. Very low ejection fraction . With his current cardiovascular concerns we will pick a very low dose of thyr oid hormone and slowly titrate. 3. Occasional low BS - patient remains on Jardiance - if the BS is low - may nee d to take less of discontinue. Just emphasize ingestion of protein and healthy n utrition. Endocrinology signing off. HISTORY OF PRESENT ILLNESS: Endocrinology is asked to comment on hypothyroidism detected in this 71-year-old admitted with rapidly decompensating heart failure. He has a known history of hyperlipidemia and type 2 diabetes with hypertension. He had a COVID-19 infecti on in September 2021. He also has a history of prostate cancer status post prosta tectomy. He presented to an [facility] with shortness of breath and significan t lower extremity swelling. He was transferred for consideration of advanced ca rdiac therapies. He has a very low ejection fraction. He has been receiving am iodarone related to his development of atrial fibrillation. In reviewing his la boratories TSH is 8 with a free T4 of 0.8. He has a multitude of symptoms that can be thyroid related including fatigue, cold intolerance, swelling lack of vahid rgy. Of course the symptoms could be multifactorial and related to his heart fa ilure post COVID. He also has lack of taste. We reviewed that anything that we can optimize would be worthwhile. I reviewed the low risk of starting a very l ow-dose of levothyroxine. We talked about the frequent observation of hypothyro idism and amiodarone users. He and his are willing to attempt it. He is f eeling poorly with poor appetite and malaise. I reviewed the risk and benefit o f starting low-dose medication. We talked about how to take the medication josefina ectly to enhance absorption. Decisions regarding treatment of his very severe c ardiomyopathy are underway with cardiology and cardiothoracic surgery. REVIEW OF SYSTEMS: ROS negative other than as noted above MEDICAL HISTORY: Current Facility-Administered Medications Medication Dose Route Frequency Provider Last Rate Last Admin acetaminophen (TYLENOL) tablet 325-650 mg 325-650 mg Oral Q6H PRN Susan castaneda MD Or acetaminophen (TYLENOL) suppository 325-650 mg 325-650 mg Rectal Q6H PRN Vi luann Caceres MD acetaminophen (TYLENOL) tablet 325-650 mg 325-650 mg Oral Q6H PRN Susan castaneda MD Or acetaminophen (TYLENOL) suppository 325-650 mg 325-650 mg Rectal Q6H PRN Vi luann Caceres MD aluminum-magnesium hydroxide-simethicone (MAALOX PLUS) 400-400-40 mg/5 mL martinez spension 15 mL 15 mL Oral Q4H PRN Susan Caceres MD amiodarone (CORDARONE) tablet 200 mg 200 mg Oral Daily Susan Caceres MD 200 mg at 12/31/212208 aspirin EC tablet 81 mg 81 mg Oral Daily Susan Caceres MD 81 mg at 12/06 atorvastatin (LIPITOR) tablet 20 mg 20 mg Oral Nightly Susan Caceres MD 20 mg at 12/31/212208 cyclobenzaprine (FLEXERIL) tablet 10 mg 10 mg Oral TID PRN Susan Caceres MD dextrose (D50W) 50 % injection 25-50 mL 25-50 mL Intravenous PRN Susan carrington MD Or dextrose 10% (D10W) bolus 125-250 mL 125-250 mL Intravenous PRN Susan john MD digoxin (LANOXIN) tablet 250 mcg 250 mcg Oral QPM Susan Caceres MD 250 mcg at 12/31/212208 DOBUTamine (DOBUTREX) infusion 2000 mcg/mL (PMX) 5 mcg/kg/min (Order-Specif ic) Intravenous Continuous Susan Caceres MD 18.15 mL/hr at 12/31/212201 5 mcg /kg/min at 12/31/212201 docusate sodium (COLACE) capsule 100 mg 100 mg Oral BID PRN Susan Caceres MD finasteride (PROSCAR) tablet 5 mg 5 mg Oral Daily Susan Caceres MD 5 mg at 12/31/212208 fluticasone propionate (FLONASE) 50 mcg/actuation nasal spray 1 spray 1 spr ay Each Nare Daily Susan Caceres MD glucagon (GLUCAGEN) injection 1 mg 1 mg Intramuscular PRN Randal Boles D Or glucagon (GLUCAGEN) injection 1 mg 1 mg Subcutaneous PRN Susan Caceres MD glucose chewable tablet 16-32 g 16-32 g Oral PRN Susan Caceres MD heparin (porcine) 1,000 unit/mL injection 5,000 Units 5,000 Units Intraveno us PRN Susan Caceres MD 5,000 Units at 01/01/22412 Or heparin (porcine) 1,000 unit/mL injection 10,000 Units 10,000 Units Intrave nous PRN Susan Caceres MD heparin 100 units/mL in sodium chloride 0.45% infusion 2-30 Units/kg/hr Int ravenous Continuous Susan Caceres MD 21.2 mL/hr at 01/01/22418 16.5 Units/kg /hr at 01/01/22418 insulin lispro (HumaLOG) injection 1-6 Units 1-6 Units Subcutaneous 4 times daily before meals and nightly Susan Caceres MD magnesium sulfate IVPB 4 gram (premix) 4 g Intravenous PRN Susan Caceres MD miconazole nitrate (ALOE VESTA) 2 % ointment Topical TID PRN Susan Rodríguez i, MD nitroglycerin (NITROSTAT) SL tablet 0.4 mg 0.4 mg Sublingual Q5 Min PRN Yoselin Caceres MD polyethylene glycol (GLYCOLAX) packet 17 g 17 g Oral Daily PRN Susan ingram MD potassium chloride (KLOR-CON) CR tablet 20 mEq 20 mEq Oral PRN Susan ingram MD Or potassium bicarb-citric acid (EFFER-K) effervescent tablet 20 mEq 20 mEq Or al PRN Susan Caceres MD Or potassium chloride 10 mEq in 50 mL IVPB 20 mEq Intravenous PRN Susan ingram MD potassium chloride (KLOR-CON) CR tablet 20 mEq 20 mEq Oral PRN Susan ingram MD Or potassium bicarb-citric acid (EFFER-K) effervescent tablet 20 mEq 20 mEq Or al PRN Susan Caceres MD Or potassium chloride 20 mEq in 100 mL IVPB 20 mEq Intravenous PRN Susan john MD sacubitriL-valsartan (ENTRESTO) 24-26 mg per tablet 1 tablet 1 tablet Oral BID Susan Caceres MD 1 tablet at 12/31/212237 tamsulosin (FLOMAX) 24 hr capsule 0.4 mg 0.4 mg Oral Daily Susan Caceres MD 0.4 mg at 12/31/212208 zolpidem (AMBIEN) tablet 5 mg 5 mg Oral Nightly PRN Susan Caceres MD Past Medical History: Diagnosis Date Atrial fibrillation (HCC) Cancer (HCC) Cardiomyopathy (HCC) CHF (congestive heart failure) (HCC) Diabetes mellitus (HCC) SURGICAL HISTORY: Past Surgical History: Procedure Laterality Date PROSTATECTOMY TOTAL KNEE ARTHROPLASTY PRIOR TO ADMISSION MEDICATIONS: Medications Prior to Admission Medication Sig Dispense Refill Last Dose cyclobenzaprine (FLEXERIL) 10 MG tablet Take 1 tablet by mouth. 12/31/2021 at Unknown time furosemide (LASIX) 80 MG tablet Take 1 tablet by mouth. 12/31/2021 at Unkno wn time hydrocodone-chlorpheniramine 10-8 mg/5 mL (TUSSIONEX PENNKINETIC) ER suspens ion Take 5 mL by mouth nightly as needed. 12/31/2021 at Unknown time losartan-hydrochlorothiazide (HYZAAR) 50-12.5 mg per tablet Take 1 tablet by mouth. 12/31/2021 at Unknown time meloxicam (MOBIC) 15 MG tablet Take 1 tablet by mouth. 12/31/2021 at Unknow n time methocarbamoL (ROBAXIN) 500 MG tablet Take 1 tablet by mouth. 12/31/2021 at Unknown time NIFEdipine (PROCARDIA-XL, ADALAT CC) 30 MG 24 hr tablet 1 tablet on an empty stomach 12/31/2021 at Unknown time predniSONE (DELTASONE) 50 MG tablet Take 50 mg by mouth. 12/31/2021 at Unkn own time terazosin (HYTRIN) 2 MG capsule 1 capsule at bedtime 12/31/2021 at Unknown time zolpidem (AMBIEN CR) 12.5 MG CR tablet 1 tablet at bedtime as needed 2021 at Unknown time zolpidem (AMBIEN) 10 mg tablet 1 tablet at bedtime as needed 12/31/2021 at Unknown time lisinopriL (PRINIVIL,ZESTRIL) 10 MG tablet Take 10 mg by mouth daily. 12/31 at Unknown time simvastatin (ZOCOR) 10 MG tablet Take 10 mg by mouth. tramadoL (ULTRAM) 50 mg tablet Take 100 mg by mouth every 6 (six) hours as n eeded. 12/31/2021 at Unknown time MED LIST: Current Facility-Administered Medications Medication Dose Route Frequency Provider Last Rate Last Admin acetaminophen (TYLENOL) tablet 325-650 mg 325-650 mg Oral Q6H PRN Susan castaneda MD Or acetaminophen (TYLENOL) suppository 325-650 mg 325-650 mg Rectal Q6H PRN Vi luann Caceres MD acetaminophen (TYLENOL) tablet 325-650 mg 325-650 mg Oral Q6H PRN Susan castaneda MD Or acetaminophen (TYLENOL) suppository 325-650 mg 325-650 mg Rectal Q6H PRN Vi ttal MD Nicki aluminum-magnesium hydroxide-simethicone (MAALOX PLUS) 400-400-40 mg/5 mL martinez spension 15 mL 15 mL Oral Q4H PRN Susan Caceres MD amiodarone (CORDARONE) tablet 200 mg 200 mg Oral Daily Susan Caceres MD 200 mg at 12/31/212208 aspirin EC tablet 81 mg 81 mg Oral Daily Susan Caceres MD 81 mg at 12/06 atorvastatin (LIPITOR) tablet 20 mg 20 mg Oral Nightly Susan Caceres MD 20 mg at 12/31/212208 cyclobenzaprine (FLEXERIL) tablet 10 mg 10 mg Oral TID PRN Susan Caceres MD dextrose (D50W) 50 % injection 25-50 mL 25-50 mL Intravenous PRN Susan carrington MD Or dextrose 10% (D10W) bolus 125-250 mL 125-250 mL Intravenous PRN Susan john MD digoxin (LANOXIN) tablet 250 mcg 250 mcg Oral QPM Susan Caceres MD 250 mcg at 12/31/212208 DOBUTamine (DOBUTREX) infusion 2000 mcg/mL (PMX) 5 mcg/kg/min (Order-Specif ic) Intravenous Continuous Susan Caceres MD 18.15 mL/hr at 12/31/212201 5 mcg /kg/min at 12/31/212201 docusate sodium (COLACE) capsule 100 mg 100 mg Oral BID PRN Susan Caceres MD finasteride (PROSCAR) tablet 5 mg 5 mg Oral Daily Susan Caceres MD 5 mg at 12/31/212208 fluticasone propionate (FLONASE) 50 mcg/actuation nasal spray 1 spray 1 spr ay Each Nare Daily Susan Caceres MD glucagon (GLUCAGEN) injection 1 mg 1 mg Intramuscular PRN Randal Boles Or glucagon (GLUCAGEN) injection 1 mg 1 mg Subcutaneous PRN Susan Caceres MD glucose chewable tablet 16-32 g 16-32 g Oral PRN Susan Caceres MD heparin (porcine) 1,000 unit/mL injection 5,000 Units 5,000 Units Intraveno us PRN Susan Caceres MD 5,000 Units at 01/01/22 0413 Or heparin (porcine) 1,000 unit/mL injection 10,000 Units 10,000 Units Intrave nous PRN Susan Caceres MD heparin 100 units/mL in sodium chloride 0.45% infusion 2-30 Units/kg/hr Int ravenous Continuous Susan Caceres MD 21.2 mL/hr at 01/01/22 0419 16.5 Units/kg /hr at 01/01/22 0419 insulin lispro (HumaLOG) injection 1-6 Units 1-6 Units Subcutaneous 4 times daily before meals and nightly Susan Caceres MD magnesium sulfate IVPB 4 gram (premix) 4 g Intravenous PRN Susan Caceres MD miconazole nitrate (ALOE VESTA) 2 % ointment Topical TID PRN Susan Rodríguez i, MD nitroglycerin (NITROSTAT) SL tablet 0.4 mg 0.4 mg Sublingual Q5 Min PRN Yoselin Caceres MD polyethylene glycol (GLYCOLAX) packet 17 g 17 g Oral Daily PRN Susan ingram MD potassium chloride (KLOR-CON) CR tablet 20 mEq 20 mEq Oral PRN Susan ingram MD Or potassium bicarb-citric acid (EFFER-K) effervescent tablet 20 mEq 20 mEq Or al PRN Susan Caceres MD Or potassium chloride 10 mEq in 50 mL IVPB 20 mEq Intravenous PRN Susan ingram MD potassium chloride (KLOR-CON) CR tablet 20 mEq 20 mEq Oral PRN Susan ingram MD Or potassium bicarb-citric acid (EFFER-K) effervescent tablet 20 mEq 20 mEq Or al PRN Susan Caceres MD Or potassium chloride 20 mEq in 100 mL IVPB 20 mEq Intravenous PRN Susan john MD sacubitriL-valsartan (ENTRESTO) 24-26 mg per tablet 1 tablet 1 tablet Oral BID Susan Caceres MD 1 tablet at 12/31/21 5912 tamsulosin (FLOMAX) 24 hr capsule 0.4 mg 0.4 mg Oral Daily Susan Caceres MD 0.4 mg at 12/31/212208 zolpidem (AMBIEN) tablet 5 mg 5 mg Oral Nightly PRN Susan Caceres MD ALLERGIES: No Known Allergies SOCIAL HISTORY: Social History Socioeconomic History Marital status: Tobacco Use Smoking status: Never Smoker Smokeless tobacco: Never Used Substance and Sexual Activity Alcohol use: Not Currently Drug use: Not Currently Sexual activity: Not Currently FAMILY HISTORY: No family history on file. PHYSICAL EXAM: Patient appears: Fatigued and sluggish HEENT: no protosis , lid lag or stare noted NECK: No thyromegaly is noted CV: regular rate and rythym, not tachycardic -distant heart sounds Pulm: clear; no increased WOB -diminished in the bases ABD:non-distended, no HSM. Extremities: Significant bilateral edema with fungal nails and dusky pigment of the skin. Difficult to feel pulsations. Reduced sensation. LAB RESULTS: Last CBC: Most Recent Result within the last 7 days Lab Units 01/01/22 0025 WBC TH/uL 6.28 HEMOGLOBIN g/dL 11.4* HEMATOCRIT % 35* PLATELET COUNT Th/uL 219 Last BMP: Most Recent Result within the last 7 days Lab Units 01/01/22 0025 SODIUM mEq/L 122* POTASSIUM mEq/L 4.3 CARBON DIOXIDE mEq/L 23 BLOOD UREA NITROGEN mg/dL 20 CALCIUM mg/dL 8.8 Last CMP: Most Recent Result within the last 7 days Lab Units 01/01/22 0025 SODIUM mEq/L 122* POTASSIUM mEq/L 4.3 CARBON DIOXIDE mEq/L 23 BLOOD UREA NITROGEN mg/dL 20 CALCIUM mg/dL 8.8 PROTEIN TOTAL SERUM g/dL 6.0 ALKALINE PHOSPHATASE U/L 115 ALANINE AMINOTRANSFERASE U/L 76* ASPARTATE AMINOTRANSFERASE U/L 18 CELIAC SCREEN No results found for: CELIAC TSH: Thyroid Stimulating Hormone Date Value Ref Range Status 12/31/2021 8.15 (H) 0.55 - 4.78 uIU/mL Final FREE T4: T4 Free Date Value Ref Range Status 12/31/2021 0.80 (L) 0.89 - 1.76 ng/dL Final TOTAL T4: No results found for: D4VSJIH TOTAL T3: No results found for: TT3 FREE T3: No results found for: T3FREE ANTI-TPO ANTIBODY: No components found for: THROIDAB TSI: No results found for: TSIMM THYROGLOBULIN: No components found for: TG ANTI-THYROGLOBULIN ANTIBODY: No components found for: ANTITHG PLASMA ACTH: No results found for: ACTH SERUM CORTISOL: No results found for: CORTISOL Electronically signed by Sandy Keen 01/01/2022 6:38 AM documented in this encounter Nursing Notes * Mary Taylor RN - 01/02/2022 10:42 AM CDT Anabella Faye, transferred [facility] to unit [facility] at 1040 . The patient was made aware of the transfer. The patient was transported via bed, accompanied by: RN The Care Plan was reviewed-yes. A full report was given to GENI Delgado. P t VSS and A&Ox4 at the time of transfer. * Nunu Haas RN - 01/01/2022 1:01 PM CDT Pt. Adm. [facility] from CV lab at this time, here, all belongings brought from pt.'s previous room 15. Pt. A/O, see assessment. Denies pain at this ti me, skin with very dry, connor color feet, coccyx with blanchable redness and mep ilex applied. Pictures taken, in chart. Elver at appx. 61cm, site D/I. IV's in left arm intact. Oriented to CICU room, call light in reach. Dr. Unger moe re of adm. To CICU #4. documented in this encounter Miscellaneous Notes * Nursing Discharge - Mercedes Martinez RN - 01/09/2022 12:18 PM CDT Nursing Discharge Note Patient discharged this afternoon to [facility] in [place]. Report called to Lola at the facility. IVs removed without difficulty. Discharge instructions re viewed with patient and . Family provided transportation. Patient/family satisfied with progress made towards goals and ready for discharg e. * Care Progression Final DC Note - Princess Echeverria LMSW - 01/09/2022 10:36 AM CDT Final Discharge Note Notified during rounds that pt is able to DC to [facility] this afternoon. Pt's family already at the hospital to transport pt to rehab facility. Spoke to homemaking rehabilitation consultant, December, and confirmed pt's DC. SW will call her back with confirmed DC time when pt leaves the hospital. SW confirmed with December that they have a urologist on staff that can complete voiding trial as recommended by [facility] Urologist. SW also confirmed that at time of DC if outpatient urology follow up is still needed, rehab SW will arrange appointment for pt. HF YODIT notified and in agreement with plan. Packet on pt's chart and report phone number provided to pt's RN. No other DC ne eds identified. Discharge goal and plan is mutually agreed upon by patient and staff. Patient will discharge to: [facility] Transportation: Family Discharge Time: 12:00 Special Instructions: None. [facility]: P: [phone] F: [phone] Princess Echeverria, 01/09/2022 10:41 AM Ext. [phone] * Therapy Note - Reyna Rangel DPT - 01/09/2022 10:07 AM CDT 01/09/22 1006 PT Visit Info Attempted but was unable to see patient (date) 01/09/22 Reason patient was not seen With other staff PT reason not seen - extended comment SW visiting with patient and family, will follow up as schedule allows. * Sign-Off Note - Je Torres NP - 01/09/2022 9:13 AM CDT [facility] Electrophysiology Device Sign-Off Note Name: Anabella Faye CPI: [id number] Date of : 1950 Primary care physician: No primary care provider on file. Date of admission: 12/31/2021 Date of sign-off: 01/08/2022 Admitting physician: Ponce Fonseca MD Reason for consult: [place] Current problem list: Principal Problem: Acute on chronic systolic heart failure (HCC) Active Problems: Cardiogenic shock (HCC) Benign essential hypertension Mixed hyperlipidemia Primary insomnia Prostate cancer (HCC) COVID-19 virus infection Obesity Type 2 diabetes mellitus (HCC) Acute kidney injury (HCC) Atrial fibrillation (HCC) Hyponatremia Hospital course/plans: Anabella Faye is a 71 y.o. male who is currently admitted to [facility] under the heart failure service. 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 In that setting, plan was made for implantation of a(an) defibrillator for the p urposes of secondary prevention of sudden cardiac arrest. The patient underwent placement of the device and tolerated procedure well. The device and lead inform ation, including the device settings are listed below. Device Implant Summary: Devices ICD Implant Defibrillator Evera Mri Dr Jean-Baptiste [id number] - [id number] - Implanted (Left ) Chest Inventory item: IMPLANT DEFIBRILLATOR EVERA MRI DR JEAN-BAPTISTE [id number] Model/Cat number: [id number] Serial number: [id number] Final Inspector Movement Assembly: MEDTRONIC CARDIAC RHYTHM MGMT Lot number: [id number] Area/Chamber: Chest Laterality: Left Implant Date: 01/08/2022 As of 01/08/2022 Status: Implanted Mode: MVP Lower Rate: 50 Upper Rate: 130 Lead Implant Lead Sprint Quattro 62cm Secure S [id number] - [id number] - Implanted He art Ventricle Inventory item: IMPLANT LEAD SPRINT QUATTRO 62CM SECURE S [id number] Model/Cat num katie: [id number] Serial number: [id number] Final Inspector Movement Assembly: MEDTRONIC CARDIAC RHYTHM MGMT Lot number: [id number] Area/Chamber: Heart Ventricle Implant Date: 01/08/2022 As of 01/08/2022 Status: Implanted Location: RV Sensing Threshold (mV): 6.8 Slew Rate (V/s): 2.6 Pacing Impedance (ohms): 559 Capture Threshold (V): 0.5 Capture Threshold (mA): 1.1 Implant Lead Pacemaker Atrial/Ventricle 52cm Capsure Fix Novus [id number] - [id number] - Implanted (Right) Heart Atrium Inventory item: IMPLANT LEAD PACEMAKER ATRIAL/VENTRICLE 52CM CAPSURE FIX NOVUS 4076-52 Model/Cat number: [id number] Serial number: [id number] Final Inspector Movement Assembly: MEDTRONIC CARDIAC RHYTHM MGMT Lot number: [id number] Area/Chamber: Heart Atrium Implant Date: 01/08/2022 As of 01/08/2022 Status: Implanted Location: RA Sensing Threshold (mV): 3.1 Slew Rate (V/s): 0.8 Pacing Impedance (ohms): 627 Capture Threshold (V): 2 Capture Threshold (mA): 4.2 Physical exam: BP 98/66 (BP Location: Right arm, Patient position: Supine) | Pulse 84 | Temp 36.3 C (97.4 F) (Oral) | Resp 22 | Ht 1.854 m (6' 1") | Wt 108.3 kg (238 lb 12.8 oz) | SpO2 100% | BMI 31.51 kg/m Chest x-ray showed no effusion or pneumothorax. EKG reveals sinus rhythm, rates 70s. The procedure site is free from hematoma or swelling. There was no erythema. The Silverlon dressing is dry and intact. Neuro exam was intact. Lungs were clear. Cardiac examination reveals a regular rate and rhythm. Abdomen is soft, nontende r, and nondistended. Extremities are free from clubbing, cyanosis, or edema. Pulses are 2+ and equal bilaterally. Skin is free of rashes. Cabezas laboratory findings during this hospitalization: Most Recent Result within the last 7 days Lab Units 01/08/22 1043 HEMOGLOBIN g/dL 12.0* HEMATOCRIT % 38* WBC TH/uL 6.88 PLATELET COUNT Th/uL 298 CREATININE mg/dL 1.10 BLOOD UREA NITROGEN mg/dL 9 POTASSIUM mEq/L 3.6 Pertinent Imaging/Procedures performed during this hospitalization: Cardiac MRI Date: 01/06/2022 CONCLUSION:1. Moderate left ventricular enlargement. LVEF = 25%. 2. Severe right ventricular enlargement. RVEF = 25%. 3. No late gadolinium enhancement to suggest inflammation, fibrosis or infarcti on. 4. Moderate tricuspid regurgitation. Mild mitral and aortic regurgitation. Ao rtic stenosis is noted. Severity is not assessed. 5. Large right and small left pleural effusion with atelectasis of the bilateral lung bases. EP Procedures: Placement of defibrillator by Dr. Anali Herr MD on 01/08/2022. Post op device check report: Date: 01/09/2022 Device function stable. Please see full report for details. Sign Off Impression and Plan: 1. Status post cardiac implanted electronic device in situ - Site has typical appearance - Next day CXR, EKG, device interrogation stable 2. Cardiomyopathy - NYHA Class at discharge: NYHA III - Guideline directed medical therapy including: Beta-martinez prescribed:Yes NOREEN inhibitor prescribed: N/A On Entresto ARB therapy prescribed: N/A On Entresto Aldosterone inhibitor prescribed: Yes - managed by heart failure service Wound Care and Activity limitations: Wound Care: 1. Large bandage will need to be removed 7 days after the procedure. 2. Once the bandage has been removed there is no need to put a new bandage on at this point. 3. Keep your site clean and dry. Avoid getting the implant site wet for one week after the procedure. After one week wash the site with soap and warm water each day. Do not scratch the area or try to remove scabs. 4. The Silver dressing is designed to get wet. If the patient has a Silver dress ing it if fine to shower the following day as long as the dressing remains occlu sive. 5. The patient should avoid hot tubs, bathtubs, swimming pools, or lakes for fou r weeks after implant. 6. Do not use powders, ointments or lotions at the incision site. 7. Check the implant site for drainage, redness, pain, separation of the wound, or swelling. If you notice any of these or patient has a fever of 100 degrees or higher Voalte EP1 or EP2 immediately. Activity Guidelines: Temporary Restrictions: After implant of a NEW pacemaker, defibrillator, or NEW lead: - , -No driving f or at least one week (unless otherwise restricted)., -No lifting more than 10 p ounds with the affected arm for six weeks after implant., -Do not raise your ar m on the incision side above shoulder level or stretch your arm behind your back for six weeks after implant. and -No repetitive arm movements above the level of your shoulder for 3 months (example: bowling, golfing, swimming, tennis, weig ht machines) Follow up: The patient will follow up for a wound check in 7-10 days via virtual visit with one of our electrophysiology nurses. A remote device check will be sent from the patients home in 1 month. The patient will also follow up with one of our electrophysiology advanced practice nurses in 91 days at which time the patient will have full device interrogation. At this point we will plan to sign-off. We appreciate the opportunity to have p articipated in this patient's care. Please Voalte EP1 or call us if we can be o f any further assistance to the care of this patient. Je Torres DNP, RN CARDIAC-C * Nutrition Note - Azeb Flores RD - 01/09/2022 8:41 AM CDT Nutrition Length of Stay [facility] Patient: Anabella Faye Age: 71 y.o. : 1950 PRIMARY CARE PROVIDER: No primary care provider on file. ATTENDING PHYSICIAN: Ponce Fonseca MD Patient assessed for nutrition risk based on length of stay. Chart reviewed. Height: 185.4 cm (6' 1") Admit Weight: Weight: 108.7 kg (239 lb 9.6 oz) Weight Change: -20.1 kg, noted net fluid -15.9 L, pt has been on lasix, wt hansen es likely r/t fluid changes BMI (Calculated): 37.5 Diet Order: simply healthy, CC Food Intake: No acute nutrition diagnosis determined at this time. Continue with current nutr ition plan. Will continue to evaluate every 5-7 days per policy. Electronically signed by Azeb Flores 01/09/2022 8:41 AM * End of Shift Note - Reyna Garduno RN - 01/09/2022 5:15 AM CDT End of Shift Summary and Plan of Care Pt left PPM site intact. SR with 1st degree and BB. VSS. Pt did complain of pain in left ppm site, tylenol and flexril given with relief. Pt resting in bed at this time. Plan to transfer to rehab in [facility] today . Goals per Patient Condition Fall Prevention Plan - Patient will remain free from injury related to falls. Se e the Daily cares/safety flowsheet for intervention documentation. Skin Integrity Plan - Patient skin integrity maintained. See integumentary flows heet for intervention documentation. Goals/Plan for Shift Patient/Family stated goal for shift: sleep, pain control Nursing goal for shift: stable vitals/tele/procedure site Plan: site check with vitals q4 and prn, assess tele, cluster cares Goals/Plan for Hospital Stay Patient/Family stated goal for hospital stay: to get my heart fixed so I can go home Nursing goal for hospital stay: keep patient free of injury and give pt valuable information. Plan: heart cath * End of Shift Note - Ayana Damian RN - 01/08/2022 7:35 PM CDT End of Shift Summary and Plan of Care The patient left for his ICD at 1250 and returned at 1525. His left chest dress ing has been clean/dry/intact, and he had denied any pain so far. The patient i s aware of the discharge plan for tomorrow. Goals per Patient Condition Fall Prevention Plan - Patient will remain free from injury related to falls. Se e the Daily cares/safety flowsheet for intervention documentation. Skin Integrity Plan - Patient skin integrity maintained. See integumentary flows heet for intervention documentation. Goals/Plan for Shift Patient/Family stated goal for shift: to discharge Nursing goal for shift: ICD placed Plan: monitor tele, labs, VS, prep for ICD, Goals/Plan for Hospital Stay Patient/Family stated goal for hospital stay: to get my heart fixed so I can go home Nursing goal for hospital stay: keep patient free of injury and give pt valuable information. Plan: heart cath * Sedation Documentation - Chuck Quiñones MD - 01/08/2022 1:01 PM CDT [facility] Pre-Sedation Assessment H&P Update Chief complaint/ History of present illness/ Indication for procedure: Ventricul ar tachycardia, severe nonischemic cardiomyopathy with EF 10%. Planned Procedure/ Treatment: ICD Implantation History and Physical Status: Current H&P (<30 days) on chart, reviewed, and physical exam performed within 24 hours of procedure. No changes noted. Pre-Sedation/Analgesia ASA Status: IV - Patient with severe systemic disease damien t is a constant threat to life Plan for Anesthesia: Level 2 (Moderate - EP Lab) Airway Assessment: Mallampati Class III: Soft and hard palate and base of the uv hemanth are visible [facility] Clinical Frailty Scale: Vulnerable - While not dependent on others for frankie y help, often symptoms limit activities. A common complaint is being "slowed up" , and/or being tired during the day. PADIT Risk Score: Age 70 years or greater (0) Previous Procedure = 0 (0) New ICD or ICD generator replacement (2) Total Score: 2 Scoring four (4) points or fewer: A patient is deemed at lowest risk for infe ction. Scoring five (5) or six (6) points: A patient is deemed at moderate or inter mediate risk. Scoring seven (7) or above: A patient is deemed at a high-risk of developing a serious infection. PADIT Risk Score Risk of Hospitalization for a Device Infection 0 0.35% 1 0.46% 2 0.49% 3 0.64% 4 0.83% 5 1.06% 6 1.89% 7 or greater 3.25% DH ELIZABETH Goldstein et al. Risk Factors for Infections Involving Cardiac Implant ed Electronic Devices. J Am Smitha Cardiol. 2019;74:2845-54. * Therapy Note - Brian Eddy OT - 01/08/2022 11:45 AM CDT 01/08/22 1130 OT Visit Info Attempted but was unable to see patient (date) 01/08/22 Reason patient was not seen Pt declined OT reason not seen - extended comment P kindly requested to hold due to going fo r ICD placement. Brian Eddy, OTR/L Occupational Therapist * Therapy Note - Reyna Rangel DPT - 01/08/2022 11:11 AM CDT 01/08/22 1111 Visit Type Visit Type Treatment PT Visit Info Referral Reason PT eval and tx -- "physical deconditioning" Medical Dx per Physician Acute on chronic systolic heart failure, cardiogenic sh ock, LVAD evaluation Ordering practitioner GENI Miller, AGACNP Patient/Family Reports Pt in bed upon PT arrival and is anxious to have his proc edure. He's agreeable to PT session at this time. PT Received On 01/08/22 PT Visit # 3 Time Calculation Start Time 1053 Stop Time 1111 Total Treatment time (min) 18 min Timed Minutes 18 min gait Precautions Weight Bearing Status Weight Bearing As Tolerated LLE;Weight Bearing As Tolerate d RLE Fall Risk Yes Supplemental Oxygen on RA PPE Used Yellow precautions (Level 1 mask worn over level 3 mask, eye protection , and gloves) Cognition Overall Cognitive Status WFL Orientation Level Oriented to person;Oriented to place;Oriented to time;Oriented to situation Bed Mobility Supine to Sit Stand by assistance Transfers Assistive Device Rolling walker Sit to Stand Transfers Min assist;Assistive Device Stand to Sit Transfers Min assist;Assistive Device Gait Gait Distance (Feet) 120 Assistive Device Rolling walker Gait Level Surface Assistance Minimal Pattern L Decreased step length;R Decreased step length;Decreased raman Gait Comments Pt was fatigued and SOA with increased gait distance, but otherwis e tolerated well Activity Tolerance Activity Tolerance fair;short of breath LE Ther Ex Ankle pump Bilateral;26 - 30 reps;Sitting LAQ Bilateral;6 - 10 reps;Sitting Hip Flexion Bilateral;11 - 15 reps;Sitting Patient Education Patient Education PT POC, safe and progressive mobility, activity pacing Response to education verbalizes understanding *ASSESSMENT Learning Barriers None Response to Treatment Fair Assistance Needed Occasional verbal cues (10-25%) Problem List Activity tolerance;Balance;Bed mobility;Edema;Gait;Safety;Strength; Transfers Barriers to Discharge Lives alone;Safety concerns;Requires caregiver assist Timeframe Timeframe STG 5 visits Timeframe LTG 10 visits GOALS Goals Bed Mobility;Transfers;Gait distance;Stair/curb Bed Mobility Goals Bed Mobility STG Goal Status Achieved Bed Mobility STG Supervision Bed Mobility LTG Goal Status Goal continues Bed Mobility LTG Modified independent Transfer Goals Transfer STG Goal Status Goal continues Transfer STG Supervision Transfer STG - Assistive Device Rolling walker Transfer LTG Goal Status Goal continues Transfers LTG Modified independent Transfer LTG - Assistive Device Rolling walker Gait Distance/Assist Goals Gait Distance STG Goal Status Achieved Gait Distance STG (ft) 75 ft Gait Assist STG Minimum assistance Gait STG - Assistive Device Rolling walker Gait Distance LTG Goal Status Goal continues Gait Distance LTG (ft) 125 ft Gait Assist LTG Standby assist Gait LTG - Assistive Device Rolling walker Stair/Curb Goals Stair/Curb STG Goal Status Goal continues Stair/Curb STG 1 step;Minimum assistance Stair/Curb LTG Goal Status Goal continues Stair/Curb LTG 2-3 steps;Standby assist Plan Pt/Family Goal back to normal PT Treatment Interventions Functional transfer training;LE strengthening/ROM;End urance training;Patient/family training;Bed mobility;Gait training;Balance activ ities;Safety training;Progressive Mobility;Neuromuscular re-ed;Curb/stair traini ng Progress Slow progress, decreased activity tolerance PT Frequency 3-5x/wk PT Plan for next treatment Progress functional mobility as able Discharge Recommendations PT Plan Continued PT;Post Acute Care Facility Equipment Recommended Walker Equipment Recommend Purpose to reduce fall risk;to improve balance;to promote fu nctional mobility;to promote proper gait sequence;improve activity tolerance Plan comments Pt currently not safe to return home at this time and would theref [facility] recommend post-acute care placement at d/c. Anticipate pt will be safe and able to tolerate transportation by family from hospital to rehab. * End of Shift Note - Jatin Wynne RN - 01/08/2022 6:07 AM CDT End of Shift Summary and Plan of Care No acute events this shift. VSS, on RA. Orthos completed. No complaints of pain overnight. Pt has been NPO since midnight for ICD placement today. Pre procedura l wipedown and linen change completed. Continue to monitor. Goals per Patient Condition Fall Prevention Plan - Patient will remain free from injury related to falls. Se e the Daily cares/safety flowsheet for intervention documentation. Skin Integrity Plan - Patient skin integrity maintained. See integumentary flows heet for intervention documentation. Goals/Plan for Shift Patient/Family stated goal for shift: get ICD placed Nursing goal for shift: Keep VSS, allow pt to rest Plan: Monitor VS, Cluster care, keep NPO after midnight, complete pre procedure wipedown Goals/Plan for Hospital Stay Patient/Family stated goal for hospital stay: to get my heart fixed so I can go home Nursing goal for hospital stay: keep patient free of injury and give pt valuable information. Plan: heart cath * End of Shift Note - Eugenia Spencer RN - 01/07/2022 6:07 PM CDT End of Shift Summary and Plan of Care Heparin gtt, sr with first degree on tele, denies any pain/SOB. ICD placement to leblanc. Appetite poor. Goals per Patient Condition Fall Prevention Plan - Patient will remain free from injury related to falls. Se e the Daily cares/safety flowsheet for intervention documentation. Skin Integrity Plan - Patient skin integrity maintained. See integumentary flows heet for intervention documentation. Goals/Plan for Shift Patient/Family stated goal for shift: To have a good night sleep Nursing goal for shift: discuss plan of care with patient Plan: monitor VS, I&O and daily weights. Monitoring dietary and fluid restrictions Goals/Plan for Hospital Stay Patient/Family stated goal for hospital stay: to get my heart fixed so I can go home Nursing goal for hospital stay: keep patient free of injury and give pt valuable information. Plan: heart cath * Therapy Note - Reyna Rangel DPT - 01/07/2022 11:56 AM CDT 01/07/22 1156 Visit Type Visit Type Treatment PT Visit Info Referral Reason PT eval and tx -- "physical deconditioning" Medical Dx per Physician Acute on chronic systolic heart failure, cardiogenic sh ock, LVAD evaluation Ordering practitioner GENI Miller, AGACNP Patient/Family Reports Pt sitting in recliner upon PT arrival and reports that sarah freed is feeling better today but is a little fatigued from OT session earlier this morning. He is highly agreeable to PT session at this time. PT Received On 01/07/22 PT Visit # 2 Time Calculation Start Time 1141 Stop Time 1156 Total Treatment time (min) 15 min Timed Minutes 15 min gait Precautions Weight Bearing Status Weight Bearing As Tolerated LLE;Weight Bearing As Tolerate d RLE Fall Risk Yes Supplemental Oxygen on RA PPE Used Yellow precautions (Level 1 mask worn over level 3 mask, eye protection , and gloves) Cognition Overall Cognitive Status WFL Orientation Level Oriented to person;Oriented to place;Oriented to time;Oriented to situation Transfers Assistive Device Rolling walker Sit to Stand Transfers Stand by assistance;Assistive Device Stand to Sit Transfers Min assist;Assistive Device Gait Gait Distance (Feet) 80 Assistive Device Rolling walker Gait Level Surface Assistance Minimal Pattern L Decreased step length;R Decreased step length;Decreased raman Gait Comments Pt was fatigue and SOA with increased gait distance, but he report ed that it "felt good" to be able to get up and ambulate Activity Tolerance Activity Tolerance fair;short of breath LE Ther Ex Ankle pump Bilateral;26 - 30 reps;Sitting LAQ Bilateral;6 - 10 reps;Sitting Hip Flexion Bilateral;11 - 15 reps;Sitting Heel raise Bilateral;6 - 10 reps;Standing (Pt had limited ROM, difficulty maintaining B knee ext with ex) Other Pt needed min A for steadying with standing ther ex Patient Education Patient Education PT POC, safe and progressive mobility, activity pacing Response to education verbalizes understanding *ASSESSMENT Learning Barriers None Response to Treatment Fair Assistance Needed Occasional verbal cues (10-25%) Problem List Activity tolerance;Balance;Bed mobility;Edema;Gait;Safety;Strength; Transfers Barriers to Discharge Lives alone;Safety concerns;Requires caregiver assist Timeframe Timeframe STG 5 visits Timeframe LTG 10 visits GOALS Goals Bed Mobility;Transfers;Gait distance;Stair/curb Bed Mobility Goals Bed Mobility STG Goal Status Goal continues Bed Mobility STG Supervision Bed Mobility LTG Goal Status Goal continues Bed Mobility LTG Modified independent Transfer Goals Transfer STG Goal Status Goal continues Transfer STG Supervision Transfer STG - Assistive Device Rolling walker Transfer LTG Goal Status Goal continues Transfers LTG Modified independent Transfer LTG - Assistive Device Rolling walker Gait Distance/Assist Goals Gait Distance STG Goal Status Achieved Gait Distance STG (ft) 75 ft Gait Assist STG Minimum assistance Gait STG - Assistive Device Rolling walker Gait Distance LTG Goal Status Goal continues Gait Distance LTG (ft) 125 ft Gait Assist LTG Standby assist Gait LTG - Assistive Device Rolling walker Stair/Curb Goals Stair/Curb STG Goal Status Goal continues Stair/Curb STG 1 step;Minimum assistance Stair/Curb LTG Goal Status Goal continues Stair/Curb LTG 2-3 steps;Standby assist Plan Pt/Family Goal back to normal PT Treatment Interventions Functional transfer training;LE strengthening/ROM;End urance training;Patient/family training;Bed mobility;Gait training;Balance activ ities;Safety training;Progressive Mobility;Neuromuscular re-ed;Curb/stair traini ng Progress Slow progress, decreased activity tolerance PT Frequency 3-5x/wk PT Plan for next treatment Progress functional mobility as able Discharge Recommendations PT Plan Continued PT;Post Acute Care Facility Equipment Recommended Walker Equipment Recommend Purpose to reduce fall risk;to improve balance;to promote fu nctional mobility;to promote proper gait sequence;improve activity tolerance Plan comments Pt currently not safe to return home at this time and would theref [facility] recommend post-acute care placement at d/c. * Therapy Note - Brian Eddy OT - 01/07/2022 9:15 AM CDT 01/07/22 0915 Visit Type Visit Type Treatment OT Visit Info Initial OT Visit On 01/06/22 OT Received On 01/07/22 OT Visit # 2 Precautions Fall Risk Yes Supplemental Oxygen on RA ADL Adaptive Equipment/Durable Medical Equipment Java Groovy Developer Grooming Minimal Assistance Grooming Type of Task Washing, Rinsing and/or Drying the hand;Washing, Rinsing a nd/or Drying the face;Shaving the face Grooming comments Min A for thoroughness. Encouraged patient to complete tasks i n sitting and standing to conserve energy. P with a small cut when shaving. Bloo d clotted before end of session. Lower Body Dressing Minimal Assistance Lower Body Dressing, Type of Clothing Left sock;Right sock Lower Body Dressing Type of Assistance Steadying assistance ADL Comments Long-handled sponge was given to the patient to use at home for nathan oneal. Energy conservation Cognition Overall Cognitive Status WFL RUE Assessment RUE Assessment WFL LUE Assessment LUE Assessment WFL Hand Function Gross Grasp Functional Gross Release Functional Bed Mobility Supine to Sit Stand by assistance Transfers Assistive Device Rolling walker Sit to Stand Transfers Min assist Stand to Sit Transfers Min assist Gait Activity Gait Surface level surface Gait Activity room mobility Gait Time 0-5 min Gait Assistance min assist Activity Tolerance Activity Tolerance fair;+ Patient Education Patient Education OT POC Response to education verbalizes understanding Assessment Learning Barriers None Response to Treatment Good Assistance Needed Occasional verbal cues (10-25%) Problem List/Impairments Decreased ADL participation;Decreased IADL participatio n;Decreased activity tolerance;Decreased functional mobility;Decreased safety aw areness;Decreased strength;Decreased balance;Physical limitation Timeframe Timeframe STG 2 visits Timeframe LTG 4 visits GOALS Goals Other;Toilet Transfers;Bathing Bathing Goals Bathing STG Goal Status Goal continues Bathing STG Minimal Assistance Bathing LTG Goal Status Goal continues Bathing LTG Setup/Supervision Toilet Transfer Goals Toilet Transfer STG Goal Status Goal continues Toilet Transfer STG Minimal Assistance Toilet Transfer LTG Goal Status Goal continues Toilet Transfer LTG Setup/Supervision Other OT Goals Home Exercise Program Goal P will verbalize x3 energy conservation techniques to increase independence with ADLs and functional activities. *PLAN Pt/Family involved in Plan of Care yes OT Treatment Interventions ADL retraining;Functional transfer training;Functiona l activity tolerance;Patient/family training;Equipment evaluation/education;Comp ensatory technique education;Safety training OT Frequency 3-5x/wk Discharge Recommendations OT Plan Continued OT;Post Acute Care Facility Brian Eddy OTR/L Occupational Therapist * End of Shift Note - Wes Fiugeroa RN - 01/07/2022 5:19 AM CDT End of Shift Summary and Plan of Care Pt had an episode of nausea tonight after taking his medications. No vomiting or abdominal pain. Cardiology notified and order to give Compazine 5 mg PRN given. Pt slept well afterward and has no other concerns at this time. VSS and SR with 1rst degree AVB on the monitor. No other concerns at this time. Goals per Patient Condition Fall Prevention Plan - Patient will remain free from injury related to falls. Se e the Daily cares/safety flowsheet for intervention documentation. Skin Integrity Plan - Patient skin integrity maintained. See integumentary flows heet for intervention documentation. Goals/Plan for Shift Patient/Family stated goal for shift: To have a good night sleep Nursing goal for shift: discuss plan of care with patient Plan: monitor VS, I&O and daily weights. Monitoring dietary and fluid restrictions Goals/Plan for Hospital Stay Patient/Family stated goal for hospital stay: to get my heart fixed so I can go home Nursing goal for hospital stay: keep patient free of injury and give pt valuable information. Plan: heart cath * End of Shift Note - Hannah Plummer RN - 01/06/2022 5:38 PM CDT End of Shift Summary and Plan of Care Pt up to chair for several hours today. Worked with PT and was able to walk in r oom. Requires moderate assist. VSS. Denies c/o pain or SOB. Good UO. Heparin con t with therapeutic assay. Goals per Patient Condition Fall Prevention Plan - Patient will remain free from injury related to falls. Se e the Daily cares/safety flowsheet for intervention documentation. Skin Integrity Plan - Patient skin integrity maintained. See integumentary flows heet for intervention documentation. Goals/Plan for Shift Patient/Family stated goal for shift: go home soon Nursing goal for shift: discuss plan of care with patient Plan: monitor VS, I&O and daily weights. Discuss dietary and fluid restrictions Goals/Plan for Hospital Stay Patient/Family stated goal for hospital stay: to get my heart fixed so I can go home Nursing goal for hospital stay: keep patient free of injury and give pt valuable information. Plan: heart cath * Therapy Note - Brian Eddy OT - 01/06/2022 3:36 PM CDT 01/06/22 1400 Visit Type Visit Type Evaluation OT Visit Info Initial OT Visit On 01/06/22 Assessed for Rehab Yes Past medical history reviewed through chart review: Yes OT Received On 01/06/22 OT Visit # 1 Home Living Type of Home House Home Layout One level Stairs to enter 2-3 steps;2 handrails Lives With Spouse Bathroom Shower/Tub Walk-in shower Bathroom Toilet Raised Bathroom Equipment Grab bars around toilet;Grab bars in shower;Shower chair Bathroom Accessibility Accessible Home Assistive Device Rolling walker Adaptive Equipment/DME Java Groovy Developer;Sock aid;Long-handled shoe horn;Dressing stick Prior Function Level of [place] Independent with ADLs;Independent with functional transfer s;Independent with ambulation;Independent with homemaking Receives Help From Family ADL Toileting Minimal Assistance Toilet Transfer Minimal Assistance Toilet Transfer Method Ambulating Perception Inattention/Neglect Appears intact RUE Assessment RUE Assessment WFL LUE Assessment LUE Assessment WFL Hand Function Gross Grasp Functional Gross Release Functional Transfers Assistive Device Rolling walker Sit to Stand Transfers Min assist Stand to Sit Transfers Min assist Gait Activity Gait Surface level surface Gait Activity room mobility Gait Time 0-5 min Gait Assistance min assist Activity Tolerance Activity Tolerance fair Patient Education Patient Education OT POC; energy conservation techniques for ADLs Response to education verbalizes understanding Assessment Learning Barriers None Assistance Needed Occasional verbal cues (10-25%) Problem List/Impairments Decreased ADL participation;Decreased IADL participatio n;Decreased activity tolerance;Decreased functional mobility;Decreased safety aw areness;Decreased strength;Decreased balance;Physical limitation Timeframe Timeframe STG 2 visits Timeframe LTG 4 visits GOALS Goals Other;Toilet Transfers;Bathing Bathing Goals Bathing STG Goal Status New goal Bathing STG Minimal Assistance Bathing LTG Goal Status New goal Bathing LTG Setup/Supervision Toilet Transfer Goals Toilet Transfer STG Goal Status New goal Toilet Transfer STG Minimal Assistance Toilet Transfer LTG Goal Status New goal Toilet Transfer LTG Setup/Supervision Other OT Goals Home Exercise Program Goal P will verbalize x3 energy conservation techniques to increase independence with ADLs and functional activities. *PLAN Pt/Family involved in Plan of Care yes OT Treatment Interventions ADL retraining;Functional transfer training;Functiona l activity tolerance;Patient/family training;Equipment evaluation/education;Comp ensatory technique education;Safety training OT Frequency 3-5x/wk Discharge Recommendations OT Plan Continued OT;Post Acute Care Facility ANNA Alfaro/L Occupational Therapist * Therapy Note - Reyna Rangel, DPT - 01/06/2022 2:02 PM CDT 01/06/22 1402 Visit Type Visit Type Evaluation PT Visit Info Initial PT Visit On 01/06/22 Assessed for Rehab Yes Past medical history reviewed through chart review: Yes Referral Reason PT eval and tx -- "physical deconditioning" Medical Dx per Physician Acute on chronic systolic heart failure, cardiogenic sh ock, LVAD evaluation Ordering practitioner GENI Miller, AGAP Comorbidities pertaining to therapy diagnosis Past Medical History: Atrial fibrillation (HCC) Cancer (HCC) Cardiomyopathy (HCC) CHF (congestive heart failure) (HCC) Diabetes mellitus (HCC) Patient/Family Reports Pt sitting in recliner upon PT arrival and reports that sarah freed is feeling better today, but still doesn't have much energy. He is highly agr eeable to PT session, "I haven't walked in 3 months." PT Received On 01/06/22 PT Visit # 1 Time Calculation Start Time 1339 Stop Time 1402 Total Treatment time (min) 23 min Timed Minutes 15 min eval, 8 min gait, 10 min care coordination Precautions Weight Bearing Status Weight Bearing As Tolerated LLE;Weight Bearing As Tolerate d RLE Fall Risk Yes Supplemental Oxygen on RA PPE Used Yellow precautions (Level 1 mask worn over level 3 mask, eye protection , and gloves) Home Living Type of Home House Home Layout One level Stairs to enter 2-3 steps;2 handrails Lives With Spouse Home Assistive Device Rolling walker Additional Comments Pt reports he wasn't using any AD prior to admission Prior Function Level of [place] Independent with ADLs;Independent with functional transfer s;Independent with ambulation;Independent with homemaking Receives Help From Family 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) Hobbies Fishing Cognition Overall Cognitive Status WFL Orientation Level Oriented to person;Oriented to place;Oriented to time;Oriented to situation Transfers Assistive Device Rolling walker Sit to Stand Transfers Stand by assistance;Assistive Device Stand to Sit Transfers Min assist;Assistive Device Transfer Comments Pt reported mild lightheadedness once standing Gait Gait Distance (Feet) 30 Assistive Device Rolling walker Gait Level Surface Assistance Minimal Pattern L Decreased step length;R Decreased step length;Decreased raman Gait Comments Pt performed pre gait activities including lateral weight shifting and anterior and posterior weight shifting in staggered stance. Pt reported fa tigue, but that was the longest that he had stood in 3 months. He was agreeable to attempt ambulation. He needed min A for steadying and was SOA and fatigued following distance. SpO2 maintained >97% with ambulation. Activity Tolerance Activity Tolerance fair;short of breath Sensation Light Touch Intact RLE Assessment RLE Assessment WFL LLE Assessment LLE Assessment WFL Patient Education Patient Education Role of acute PT, PT POC, safe and progressive mobility, activ ity pacing Response to education verbalizes understanding *ASSESSMENT Learning Barriers None Response to Treatment Fair Assistance Needed Occasional verbal cues (10-25%) Problem List Activity tolerance;Balance;Bed mobility;Edema;Gait;Safety;Strength; Transfers Barriers to Discharge Lives alone;Safety concerns;Requires caregiver assist Clinical presentation Evolving Timeframe Timeframe STG 5 visits Timeframe LTG 10 visits GOALS Goals Bed Mobility;Transfers;Gait distance;Stair/curb Bed Mobility Goals Bed Mobility STG Goal Status New goal Bed Mobility STG Supervision Bed Mobility LTG Goal Status New goal Bed Mobility LTG Modified independent Transfer Goals Transfer STG Goal Status New goal Transfer STG Supervision Transfer STG - Assistive Device Rolling walker Transfer LTG Goal Status New goal Transfers LTG Modified independent Transfer LTG - Assistive Device Rolling walker Gait Distance/Assist Goals Gait Distance STG Goal Status New goal Gait Distance STG (ft) 75 ft Gait Assist STG Minimum assistance Gait STG - Assistive Device Rolling walker Gait Distance LTG Goal Status New goal Gait Distance LTG (ft) 125 ft Gait Assist LTG Standby assist Gait LTG - Assistive Device Rolling walker Stair/Curb Goals Stair/Curb STG Goal Status New goal Stair/Curb STG 1 step;Minimum assistance Stair/Curb LTG Goal Status New goal Stair/Curb LTG 2-3 steps;Standby assist Plan Pt/Family Goal back to normal PT Treatment Interventions Functional transfer training;LE strengthening/ROM;End urance training;Patient/family training;Bed mobility;Gait training;Balance activ ities;Safety training;Progressive Mobility;Neuromuscular re-ed;Curb/stair traini ng PT Frequency 3-5x/wk PT Plan for next treatment Progress functional mobility as able Discharge Recommendations PT Plan Continued PT;Post Acute Care Facility Equipment Recommended Walker Equipment Recommend Purpose to reduce fall risk;to improve balance;to promote fu nctional mobility;to promote proper gait sequence;improve activity tolerance Plan comments Pt currently not safe to return home at this time and would theref [facility] recommend post-acute care placement at d/c. Care Coordination Care Coordination Consult with RN and OT * End of Shift Note - Jatin Wynne RN - 01/06/2022 6:27 AM CDT End of Shift Summary and Plan of Care No acute events this shift. Hawkins in good working order, good UOP this shift. VS S. No complaints of pain. On RA. Covid results pending. Continue to monitor. Goals per Patient Condition Fall Prevention Plan - Patient will remain free from injury related to falls. Se e the Daily cares/safety flowsheet for intervention documentation. Skin Integrity Plan - Patient skin integrity maintained. See integumentary flows heet for intervention documentation. Goals/Plan for Shift Patient/Family stated goal for shift: to go home Nursing goal for shift: diurese, continue with LVAD work up Plan: monitor VS, tele, Is/Os, labs, coordinate any testing needed Goals/Plan for Hospital Stay Patient/Family stated goal for hospital stay: to get my heart fixed so I can go home Nursing goal for hospital stay: keep patient free of injury and give pt valuable information. Plan: heart cath * End of Shift Note - Ayana Damian RN - 01/05/2022 7:55 PM CDT End of Shift Summary and Plan of Care The patient had very little urine output in his hawkins catheter today, even after receiving IV lasix. This RN manipulated several times today to see if more uri ne would drain, but only about 100 mL appeared to be in the bag. The patient de nied any abdominal discomfort this morning but later in the afternoon he complai alysha of feeling like he had to urinate. The patient was bladder scanned and had greater than 999 mL in his bladder. Cardiology was notified who asked to contac t urology to see if it should be replaced or irrigated. Urology said to replace it, but this RN and the lost charge card clerk had difficulty and were unable to place it. He had quite a lot of scrotal/penile edema. Urology was contacted again, who ca me and placed a new catheter; 1250 mL was returned from the hawkins. At 1700 this evening, Dr. Fonseca called this RN to see if anyone was aware that the patient's c ovid test on 12/31 came back positive. This RN was unaware of this. Orders were received to re-swab the patient and to let infection control know about this. This RN sent an email to Linnette White with infection control this evening about t he situation. His current covid swab is pending but he is now in isolation. Goals per Patient Condition Fall Prevention Plan - Patient will remain free from injury related to falls. Se e the Daily cares/safety flowsheet for intervention documentation. Skin Integrity Plan - Patient skin integrity maintained. See integumentary flows heet for intervention documentation. Goals/Plan for Shift Patient/Family stated goal for shift: to go home Nursing goal for shift: diurese, continue with LVAD work up Plan: monitor VS, tele, Is/Os, labs, coordinate any testing needed Goals/Plan for Hospital Stay Patient/Family stated goal for hospital stay: to get my heart fixed so I can go home Nursing goal for hospital stay: keep patient free of injury and give pt valuable information. Plan: heart cath * Therapy Note - Reyna Rangel DPT - 01/05/2022 4:25 PM CDT 01/05/22 1615 PT Visit Info Attempted but was unable to see patient (date) 01/05/22 Reason patient was not seen With other staff PT reason not seen - extended comment Nursing staff performing hawkins care, will continue to follow and complete PT evaluation as able. * End of Shift Note - Hannah Escobar RN - 01/04/2022 5:59 PM CDT End of Shift Summary and Plan of Care Pt A&Ox4, VSS. Pt is a x2 assist to chair, hawkins remains in place. Heparin is running at 11.8 redraw will be at 1940. Pt diuresing as expected. Up in chair this afternoon. Goals per Patient Condition Fall Prevention Plan - Patient will remain free from injury related to falls. Se e the Daily cares/safety flowsheet for intervention documentation. Skin Integrity Plan - Patient skin integrity maintained. See integumentary flows heet for intervention documentation. Goals/Plan for Shift Patient/Family stated goal for shift: comfort, rest Nursing goal for shift: comfort, rest and fall prevention Plan: rounding Goals/Plan for Hospital Stay Patient/Family stated goal for hospital stay: to get my heart fixed so I can go home Nursing goal for hospital stay: keep patient free of injury and give pt valuable information. Plan: heart cath * Provider Clarification Response - Maxine Song MD - 01/04/2022 9:00 AM CDT [facility] Query Respons e Note PATIENT: ANABELLA FAYE : 1950 ADMIT DATE: 12/31/2021 7:01 PM DISCH DATE: RESPONDING PROVIDER #: [id number] RESPONSE TEXT: The patient has a history of COVID-19. QUERY TEXT: COVID-19 and history of covid 19 are documented in the medical record. Based on your medical judgement and review of the clinical criteria, can you confirm this diagnosis? Please clarify whether: - Infectious COVID-19 - Non-infectious COVID-19 - History of COVID-19 - Sequelae of COVID-19 - COVID-19 has been ruled out - Other (please document in the medical record) - Clinically unable to determine The patient?s Clinical Indicators include: Patient had covid infection 09/2021 current loss of taste and smell from Sep ction. Covid swab + this admission to [facility] Per pulm- History of COVID infection He has no risk factors for chronic lung disease and no prior symptoms suggestive of such. His COVID infection was mild and there is a low risk of persistent lung disease in mild infections. CXR is consistent with pulmonary edema but his CT is pending. 01/02 p note COVID19 Infection 09/2021 -Currently has loss of taste from his infection in 09/2021 -Re-tested positive, but will ask for cycle length Phone: Alternate Query created by: Malia Arauz on 01/02/2022 2:39 PM Electronically signed by: MAXINE SONG MD 01/04/2022 9:00 AM * End of Shift Note - Jatin Wynne RN - 01/04/2022 6:38 AM CDT End of Shift Summary and Plan of Care No acute events this shift. VSS. Hawkins remains in place with good UOP. No compla ints of pain. On RA. Continue LVAD workup. Goals per Patient Condition Fall Prevention Plan - Patient will remain free from injury related to falls. Se e the Daily cares/safety flowsheet for intervention documentation. Skin Integrity Plan - Patient skin integrity maintained. See integumentary flows heet for intervention documentation. Goals/Plan for Shift Patient/Family stated goal for shift: comfort, rest Nursing goal for shift: comfort and rest Plan: rounding Goals/Plan for Hospital Stay Patient/Family stated goal for hospital stay: to get my heart fixed so I can go home Nursing goal for hospital stay: keep patient free of injury and give pt valuable information. Plan: heart cath * End of Shift Note - Hannah Escobar RN - 01/03/2022 5:38 PM CDT End of Shift Summary and Plan of Care Pt came to [facility] from outside hospital for LVAD workup. Pt up to chair this a fternoon with x2 assist pt very weak,legs are swollen. Pt remains on heparin dri p will redraw lab tonight. Hawkins remains in place and pt receiving lasix. Goals per Patient Condition Fall Prevention Plan - Patient will remain free from injury related to falls. Se e the Daily cares/safety flowsheet for intervention documentation. Skin Integrity Plan - Patient skin integrity maintained. See integumentary flows heet for intervention documentation. Goals/Plan for Shift Patient/Family stated goal for shift: comfort, rest Nursing goal for shift: comfort and rest Plan: rounding Goals/Plan for Hospital Stay Patient/Family stated goal for hospital stay: to get my heart fixed so I can go home Nursing goal for hospital stay: keep patient free of injury and give pt valuable information. Plan: heart cath * End of Shift Note - Jatin Wynne RN - 01/03/2022 5:48 AM CDT End of Shift Summary and Plan of Care VSS. On RA. Pt denied pain this shift. Pt did request prn flexeril for muscle sp asms. Pt's called and was updated. 24hr urina collection completed and sent to lab. [place] remains in place. Flexeril given x1 for muscle spasms. Pt taken f or MRI this am, continue to monitor. updated this shift. Goals per Patient Condition Fall Prevention Plan - Patient will remain free from injury related to falls. Se e the Daily cares/safety flowsheet for intervention documentation. Skin Integrity Plan - Patient skin integrity maintained. See integumentary flows heet for intervention documentation. Goals/Plan for Shift Patient/Family stated goal for shift: "get things going to figure out a plan" Nursing goal for shift: hemodynamic stability Plan: KAELA, continuous monitoring, dobutamine titration Goals/Plan for Hospital Stay Patient/Family stated goal for hospital stay: to get my heart fixed so I can go home Nursing goal for hospital stay: keep patient free of injury and give pt valuable information. Plan: heart cath * End of Shift Note - Sandy Dale RN - 01/02/2022 4:58 PM CDT End of Shift Summary and Plan of Care Patient a&ox4. No complaints of pain. [place] in place with 24 hr urine collection until 2300. Goals per Patient Condition Fall Prevention Plan - Patient will remain free from injury related to falls. Se e the Daily cares/safety flowsheet for intervention documentation. Skin Integrity Plan - Patient skin integrity maintained. See integumentary flows heet for intervention documentation. Goals/Plan for Shift Patient/Family stated goal for shift: "get things going to figure out a plan" Nursing goal for shift: hemodynamic stability Plan: KAELA, continuous monitoring, dobutamine titration Goals/Plan for Hospital Stay Patient/Family stated goal for hospital stay: to get my heart fixed so I can go home Nursing goal for hospital stay: keep patient free of injury and give pt valuable information. Plan: heart cath * Nutrition Note - Mary Dale RD LD - 01/02/2022 3:09 PM CDT Nutrition Assessment [facility] DIAGNOSIS & INTERVENTION: DIAGNOSIS 1 Nutrition Diagnosis 1: No acute nutrition dx--f/u in 5-7 days Intervention/Plan 1a: Continue Simply Healthy meal plan. RD will continue to follow (monitor/eval below). Pt at LOW nutrition risk for heart transplant at this time based on evaluation. BMI between 30-35, however, well nourished, attempting diet adherence, A1c of 6. 9%. Malnutrition criteria: No Recommendation REASON FOR CONSULT: Nutrition VAD Evaluation Patient: Anablela Faye Age: 71 y.o. : 1950 PRIMARY CARE PROVIDER: No primary care provider on file. ATTENDING PHYSICIAN: Maxine Song MD HISTORY OF PRESENT ILLNESS: 71 y/o male being evaluated for VAD. Past Medical History: Diagnosis Date Atrial fibrillation (HCC) Cancer (HCC) Cardiomyopathy (HCC) CHF (congestive heart failure) (HCC) Diabetes mellitus (HCC) FOOD & NUTRITION RELATED HISTORY: Diet Order: Dietary Orders (From admission, onward) Start Ordered 01/01/22 1306 Diet-Low Fat/Chol, 2 gm Na (Simply Healthy) Diet effective now 01/01/22 1306 Energy Intake Total Energy Intake: oral PO, good appetite Fluid / Beverage Intake Oral Fluids: water, coffee, diet soda, ice tea with sugar-substitute Food Intake Amount of Food: 25% & 100% Type of Food / Meals: Food recall: Breakfast-skips or coffee and muffin, Lunch-s andwich and chips, Dinner - protein, starch, vegetable (however majority of vege tables pt reports are potatoes and corn, sometimes green beans). Not adding salt , using NuSalt - discussed potential concern for NuSalt since it is KCl- recomme nded to use Mrs. ADAMS or something similar. Meal / Snack Pattern: Pt reports helps him with diet adherence and preparin g heart healthy meals. Diet Experience Previous Diet / Nutrition Education / Counseling: pt states he has met with a sandra miles in the past when they took his meal orders...He is aware of sodium restr iction, isn't using the salt shaker and comfortable reading labels. He is also m onitor blood sugars and has decreased added sugars/desserts, A1c was 6.9%. ANTHROPOMETRICS Height: 185.4 cm (6' 1") Weight: 114.8 kg (253 lb 1.4 oz) BMI (Calculated): 37.5 Usual Body Weight: 118.8 kg (262 lb) (home scale) % Weight Loss In Weeks: Pt reports stable weight NUTRITION FOCUSED PHYSICAL FINDINGS: Overall Appearance: Pt sitting up in bed in no apparent distress. well-nourished Cardiovascular - Pulmonary: room air Digestive System (Mouth to Rectum): WDL Nerves and Cognition: A&Ox4 Skin: intact MEDS AND LABS REVIEWED: Pertinent Labs: CMP: Lab Results Component Value Date NA 126 (L) 01/02/2022 K 3.5 01/02/2022 CO2 23 01/02/2022 GAP 5 01/02/2022 GLU 106 (H) 01/02/2022 BUN 15 01/02/2022 CREAT 1.00 01/02/2022 GFRFAA 66.1 01/02/2022 GFRFNAA 54.5 (L) 01/02/2022 GFRMAA 89.0 01/02/2022 GFRMNAA 73.5 01/02/2022 CALCIUM 8.6 01/02/2022 BILITOTAL 1.40 (H) 01/02/2022 ALKPHOS 106 01/02/2022 ALT 50 (H) 01/02/2022 AST 14 01/02/2022 ALBUMIN 3.2 (L) 01/02/2022 PROT 5.6 (L) 01/02/2022 Lipids: Lab Results Component Value Date CHOLHDL 3.3 01/01/2022 HDL 34.0 (L) 01/01/2022 NONHDL 77 01/01/2022 LDLCHOL 63 01/01/2022 TRIG 70 01/01/2022 CHOL 111 01/01/2022 HgbA1c: Lab Results Component Value Date HGBA1C 6.9 (H) 01/01/2022 Pertinent Meds: Scheduled Meds: amiodarone 200 mg Oral Daily aspirin 81 mg Oral Daily atorvastatin 20 mg Oral Nightly empagliflozin 10 mg Oral Daily fluticasone propionate 1 spray Each Nare Daily insulin lispro 1-6 Units Subcutaneous 4 times daily before meals and nightl y levothyroxine 25 mcg Oral Daily sacubitriL-valsartan 1 tablet Oral BID [MAR Hold] spironolactone 12.5 mg Oral Daily tamsulosin 0.4 mg Oral Daily Continuous Infusions: heparin 15.8 Units/kg/hr (01/02/22527) PRN Meds:acetaminophen OR acetaminophen, aluminum-magnesium hydroxide-simeth icone, cyclobenzaprine, dextrose 50% OR dextrose 10%, docusate sodium, gluca julian OR glucagon, glucose, heparin (porcine) OR heparin (porcine), magnes ium sulfate, miconazole nitrate, nitroglycerin, polyethylene glycol, potassium c hloride OR potassium bicarb-citric acid OR potassium chloride in water, zolpidem Intake/Output Summary (Last 24 hours) at 01/02/2022 1509 Last data filed at 01/02/2022 1000 Gross per 24 hour Intake 639.72 ml Output 4500 ml Net -3860.28 ml MONITORING/EVALUATION: 1. Food & Nutrition Related Hx: Energy Intake 2. Anthropometrics: Weight change 3. Biochemical: Nutrition related labs 4. Nutrition-focused physical findings: GI function, skin Electronically signed by Mary Dale MS, RDN, LD, CCTD 01/02/2022 3:09 PM * End of Shift Note - Martha Wallis RN - 01/01/2022 6:31 PM CDT End of Shift Summary and Plan of Care Received pt just after 1400. [place] in place. Pt resting in bed, at bedside. KAELA # @ 1616: CO/CI: 5.8/2.3, SVR: 1090. Dobut @ 2.5, Hep gtt restarted per order (see MAR). LVAD workup - 24 hour urine began @ 1315. Consults completed. Labs drawn. Goals per Patient Condition Fall Prevention Plan - Patient will remain free from injury related to falls. Se e the Daily cares/safety flowsheet for intervention documentation. Skin Integrity Plan - Patient skin integrity maintained. See integumentary flows heet for intervention documentation. Goals/Plan for Shift Patient/Family stated goal for shift: "go home" Nursing goal for shift: hemodynamically stable, no pain Plan: monitor C.O.'s, assess any c/o pain, tylenol for pain at [place] Goals/Plan for Hospital Stay Patient/Family stated goal for hospital stay: to get my heart fixed so I can go home Nursing goal for hospital stay: keep patient free of injury and give pt valuable information. Plan: heart cath * Nutrition Note - MELODY Van - 01/01/2022 2:03 PM CDT Cardiac VAD Nutrition Eval Brief Note Attempted to visit with pt to complete VAD evaluation. Pt having procedure done in room-unable to speak with pt. Will continue to attempt to visit with patient to complete evaluation. Appreciate consult. Mary Dale MS, RDN, LD, CCTD * Discharge Planning - Radha Rowland RN - 01/01/2022 11:40 AM CDT Discharge Planning Interventions General Discharge Note Additional discharge planning information: Consult received for Jardiance and En tresto cost for patient. Patient gets his medications from the [facility] [place]: [phone], fax: [phone]. Both Entresto and Jardiance are on formula ry at the [place], and will be $11 each. Recommnend sending a script for a 14 day supply of each to the [facility] at discharge, so that patient can discharge with some, and send a script to the [facility] as well. [facility] will mail the medication to the patient. * Care Progression Initial Assessment - Radha Rowland RN - 01/01/2022 9:09 AM CDT Care Progression Initial Assessment Discharge Plan Care Progression Plan: Home self care Other Comments: Patient is transferred from OSH for evaluation for advanced heart failure therap s. He is , drives, and uses no DME. He has no HH or placement history . His PCP is Brian Madera at the [facility]. Dr. Fitzpatrick at the [facility] orders his medications. Patient Information Information Obtained: patient and EMR Primary Caregiver : Self Support Systems: Spouse/significant other, Extended family, Friends/neighbors Living Arrangements: Spouse/significant other Type of Residence: Private residence without support Current Home Health Services: No Transportation Transportation at Discharge: Family Transportation at Appointments: Self Functional Capacity & DME Assistive Devices: None Respiratory Items: None Current & Past Services Current Resources Available: Rx Coverage Type of Rx Coverage: VA Benefits Financial/Income Information Financial Hardship: N/A Verified that patients primary care physician is No primary care provider on file. and receives their medications from No Pharmacies Listed Radha Rowland, 01/01/2022 9:09 AM Level 3 mask, worn during this visit. * End of Shift Note - Laurel Echeverria RN - 01/01/2022 4:56 AM CDT Pt was transferred to unit at shift change last night. Pt was previously on and contnued to be on doubutamine at 5mcg/kg/min. Heprin was statrted at 15.5 units/kg/hour and was changed to 16.5 units/kg/hr af ter anti Xa was drawn. This will need to be redrawn at 1030. Vital signs stable overnight. documented in this encounter Plan of Treatment Care Team Description Date Type Specialty 01/15/2022 Nurse Only Cardiology Anali Herr MD [address] [place] [address] 02/09/2022 Telephone Cardiology Vanessa Phillip FNP [address] [place] [address] 04/16/2022 Office Visit Cardiology 04/16/2022 Nurse Only Cardiology Date/Time Name Type Priority Associated Diag noses 01/01/2022 10:57 PM CDT Nicotine and Metabolite Lab Routine Urine 01/01/2022 2:54 PM CDT US Arterial PVR Segmental Vascular Routine Pressure Lower Extremity Ultrasound bilat 01/08/2022 5:27 AM CDT Electrocardiogram without ECG Routine magnet Order Schedule Name Type Priority Associated Diag noses Once - Routine for 1 Occurrences startin g 01/01/2022 until 01/01/2022 Nicotine and Metabolite Lab Routine Urine One time imaging One time imaging for 1 Occurrences starting 01/01/2022 until 01/01/2022 US Arterial PVR Segmental Vascular Routine Pressure Lower Extremity Ultrasound bilat Once - Timed for 1 Occurrences starting 01/01/2022 until 01/01/2022 Oxyhemoglobin Venous Lab Timed Ordered: 01/09/2022 PACEMAKER OUTSIDE RECORD Outpatient Cardiology Orderables Order Schedule Name Type Priority Associated Diag noses 1 Occurrences starting 01/01/2022 until 07/03/2022 Amb Referral To Cardiac Outpatient Routine 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 (HCC) documented as of this encounter Procedures Comments Procedure Name Priority Date/Time Associated Diag nosis XR CHEST 2 VIEWS (PA AND Timed 01/09/2022 LATERAL) 8:58 AM CDT GLUCOSE POC Timed 01/09/2022 8:33 AM CDT COMPREHENSIVE METABOLIC Routine 01/09/2022 PANEL 6:14 AM CDT COMPLETE BLOOD COUNT Routine 01/09/2022 6:14 AM CDT ECG Routine 01/09/2022 5:25 AM CDT GLUCOSE POC Timed 01/08/2022 9:00 PM CDT PLATELET Timed 01/08/2022 4:36 PM CDT GLUCOSE POC Timed 01/08/2022 4:29 PM CDT ELECTROPHYSIOLOGY Routine 01/08/2022 PROCEDURE 3:06 PM CDT ELECTROPHYSIOLOGY Routine 01/08/2022 PROCEDURE 3:06 PM CDT GLUCOSE POC Timed 01/08/2022 11:15 AM CDT COMPREHENSIVE METABOLIC Routine 01/08/2022 PANEL 10:43 AM CDT COMPLETE BLOOD COUNT Routine 01/08/2022 10:43 AM CDT GLUCOSE POC Timed 01/08/2022 7:25 AM CDT ECG Routine 01/08/2022 5:27 AM CDT Procedure Note - 01/08/2022 5:27 AM CDTThis note is in progress. 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 : 1950 Requested By: ANALI HERR Order Number: [id number] Jaqui MD: Harvinder ts Intervals [place] Rate: 82 P: 215 RI: 72 QRS: -68 QRSD: 148 T: 95 QT: 440 QTc: 514 Interpreti ve Statements Sinus or ectopic atrial rhythm Ventricula r premature complex Short RI interval Nonspecifi c IVCD with LAD Inferior infarct, old Anterior infarct, old GLUCOSE POC Timed 01/07/2022 9:12 PM CDT GLUCOSE POC Timed 01/07/2022 5:45 PM CDT SPIROMETRY ONLY, DLCO Routine 01/07/2022 1:21 PM CDT GLUCOSE POC Timed 01/07/2022 11:43 AM CDT GLUCOSE POC Timed 01/07/2022 7:38 AM CDT HEPARIN ANTI FACTOR XA, Timed 01/07/2022 UNFRACTIONATED HEPARIN 7:19 AM CDT COMPREHENSIVE METABOLIC Routine 01/07/2022 PANEL 7:19 AM CDT COMPLETE BLOOD COUNT Routine 01/07/2022 7:19 AM CDT GLUCOSE POC Timed 01/06/2022 9:08 PM CDT GLUCOSE POC Timed 01/06/2022 5:31 PM CDT HEPARIN ANTI FACTOR XA, Timed 01/06/2022 UNFRACTIONATED HEPARIN 10:20 AM CDT COMPREHENSIVE METABOLIC Routine 01/06/2022 PANEL 10:20 AM CDT COMPLETE BLOOD COUNT Routine 01/06/2022 10:20 AM CDT GLUCOSE POC Timed 01/06/2022 8:03 AM CDT GLUCOSE POC Timed 01/05/2022 9:08 PM CDT GLUCOSE POC Timed 01/05/2022 6:27 PM CDT SARS-COV-2 (COVID-19) Routine 01/05/2022 5:31 PM CDT GLUCOSE POC Timed 01/05/2022 12:07 PM CDT GLUCOSE POC Timed 01/05/2022 7:44 AM CDT HEPARIN ANTI FACTOR XA, STAT 01/05/2022 UNFRACTIONATED HEPARIN 2:01 AM CDT COMPREHENSIVE METABOLIC Routine 01/05/2022 PANEL 2:01 AM CDT COMPLETE BLOOD COUNT Routine 01/05/2022 2:01 AM CDT GLUCOSE POC Timed 01/04/2022 [...] Timed 01/04/2022 UNFRACTIONATED HEPARIN 6:00 AM CDT COMPREHENSIVE METABOLIC Routine 01/04/2022 PANEL 6:00 AM CDT COMPLETE BLOOD COUNT Routine 01/04/2022 6:00 AM CDT GLUCOSE POC Timed 01/03/2022 [...] WO Routine 01/03/2022 CONTRAST 8:19 AM CDT HEPARIN ANTI FACTOR XA, Timed 01/03/2022 UNFRACTIONATED HEPARIN 3:22 AM CDT COMPREHENSIVE METABOLIC Routine 01/03/2022 PANEL 3:22 AM CDT COMPLETE BLOOD COUNT Routine 01/03/2022 3:22 AM CDT PROTEIN URINE QUANT 24HR Routine 01/02/2022 11:58 PM CDT CREATININE CLEARANCE Routine 01/02/2022 GROUP 11:58 PM CDT GLUCOSE POC Timed 01/02/2022 8:21 PM CDT PLATELET Timed 01/02/2022 5:34 PM CDT GLUCOSE POC Timed 01/02/2022 5:[address] CHEST WO CONTRAST Routine 01/02/2022 3:[address] ABDOMEN WO CONTRAST Routine 01/02/2022 3:22 PM CDT GLUCOSE POC Timed 01/02/2022 1:00 PM CDT GLUCOSE POC Timed 01/02/2022 7:40 AM CDT HEPARIN ANTI FACTOR XA, Timed 01/02/2022 UNFRACTIONATED HEPARIN 6:27 AM CDT COMPREHENSIVE METABOLIC Routine 01/02/2022 PANEL 6:27 AM CDT COMPLETE BLOOD COUNT Routine 01/02/2022 6:27 AM CDT OXYHEMOGLOBIN VENOUS Timed 01/02/2022 4:03 AM CDT PLATELET Timed 01/01/2022 11:42 PM CDT HEPARIN ANTI FACTOR XA, Timed 01/01/2022 UNFRACTIONATED HEPARIN 11:42 PM CDT EXTRA URINE SPECIMEN IN Routine 01/01/2022 YELLOW W/OUT PRESERVATIVE 10:57 PM CDT EXTRA URINE SPECIMEN IN Routine 01/01/2022 MITCHELL TUBE 10:57 PM CDT URINALYSIS (INCLUDES Routine 01/01/2022 MICROSCOPIC REVIEW, IF 10:57 PM CDT INDICATED) OXYHEMOGLOBIN VENOUS Routine 01/01/2022 10:16 PM CDT GLUCOSE POC Timed 01/01/2022 8:44 PM CDT FECAL OCCULT BLOOD Routine 01/01/2022 INPATIENT 7:24 PM CDT GLUCOSE POC Timed 01/01/2022 5:01 PM CDT OXYHEMOGLOBIN VENOUS Timed 01/01/2022 4:16 PM CDT US ABDOMEN COMPLETE Routine 01/01/2022 3:01 PM CDT APTT Timed 01/01/2022 2:53 PM CDT HEPARIN ANTI FACTOR XA, Timed 01/01/2022 UNFRACTIONATED HEPARIN 2:53 PM CDT CLOTTING SCREEN Routine 01/01/2022 2:50 PM CDT ANTIBODY SCREEN Timed 01/01/2022 2:50 PM CDT HAPTOGLOBIN Routine 01/01/2022 2:50 PM CDT TYPE AND SCREEN Routine 01/01/2022 2:50 PM CDT ABORH TYPE Timed 01/01/2022 2:50 PM CDT OXYHEMOGLOBIN VENOUS STAT [...] GLUCOSE POC Timed 01/01/2022 7:27 AM CDT HEPARIN ANTI FACTOR XA, Timed 01/01/2022 UNFRACTIONATED HEPARIN 2:51 AM CDT FIBRINOGEN ASSAY Add-On 01/01/2022 2:51 AM CDT RETYPE PATIENT ABORH Routine 01/01/2022 12:25 AM CDT LIPID PANEL Routine 01/01/2022 12:25 AM CDT IRON/TRANSFERRIN Routine 01/01/2022 12:25 AM CDT HEPARIN ANTI FACTOR XA, Timed 01/01/2022 UNFRACTIONATED HEPARIN 12:25 AM CDT HEMOGLOBIN A1C Add-On 01/01/2022 12:25 AM CDT FERRITIN Routine 01/01/2022 12:25 AM CDT DIGOXIN Routine 01/01/2022 12:25 AM CDT COMPREHENSIVE METABOLIC Routine 01/01/2022 PANEL 12:25 AM CDT COMPLETE BLOOD COUNT Routine 01/01/2022 12:25 AM CDT BENZODIAZEPINES After 12/31/2021 CONFIRMATION, U office 11:30 PM CDT visit EXTRA URINE SPECIMEN IN Routine 12/31/2021 YELLOW W/OUT PRESERVATIVE 11:30 PM CDT EXTRA URINE SPECIMEN IN Routine 12/31/2021 MITCHELL TUBE 11:30 PM CDT COVID PCR - RAPID STAT 12/31/2021 11:30 PM CDT URINALYSIS (INCLUDES Routine 12/31/2021 MICROSCOPIC REVIEW, IF 11:30 PM CDT INDICATED) TOXICOLOGY SCREENING Add-On 12/31/2021 PANEL 11:30 PM CDT GLUCOSE POC Timed 12/31/2021 9:33 PM CDT B TYPE NATRIURETIC Routine 12/31/2021 PEPTIDE (BNP) 8:44 PM CDT HIV AG/JOEY Add-On 12/31/2021 8:44 PM CDT URIC ACID Add-On 12/31/2021 8:44 PM CDT THYROID STIMULATING Routine 12/31/2021 HORMONE 8:44 PM CDT T4 FREE Add-On 12/31/2021 8:44 PM CDT T4 FREE Routine 12/31/2021 8:44 PM CDT RAPID PLASMA REAGIN Add-On 12/31/2021 8:44 PM CDT PSA SCREEN Add-On 12/31/2021 8:44 PM CDT PROTHROMBIN TIME/INR Routine 12/31/2021 8:44 PM CDT PREALBUMIN Add-On 12/31/2021 8:44 PM CDT MAGNESIUM Add-On 12/31/2021 8:44 PM CDT MAGNESIUM Routine 12/31/2021 8:44 PM CDT LIPID PANEL Add-On 12/31/2021 8:44 PM CDT LACTATE VENOUS WB STAT 12/31/2021 8:44 PM CDT LACTATE DEHYDROGENASE Add-On 12/31/2021 8:44 PM CDT IRON/TRANSFERRIN Add-On 12/31/2021 8:44 PM CDT HEPARIN ANTI FACTOR XA, STAT 12/31/2021 UNFRACTIONATED HEPARIN 8:44 PM CDT HEMOGLOBIN A1C Routine 12/31/2021 8:44 PM CDT CREATININE Add-On 12/31/2021 8:44 PM CDT COMPREHENSIVE METABOLIC Routine 12/31/2021 PANEL 8:44 PM CDT COMPLETE BLOOD COUNT Routine 12/31/2021 8:44 PM CDT ACUTE HEPATITIS PANEL Add-On 12/31/2021 8:44 PM CDT XR CHEST SINGLE VIEW DEEPIKA 12/31/2021 FRONTAL 7:39 PM CDT documented in this encounter Results * XR Chest 2 views (PA and [...] 19 Narrative 01/09/2022 10:05 AM CDT Patient: ANABELLA FAYE Sex#: M #: [id number] Sera#: [id number] Location: [address] H618-01 Ordering Provider: CHUCK QUIÑONES Procedure Requested: [id number] XR CHEST 2 VIEWS (PA AND LATERAL) [...] Note Ghassan Burkett MD - 01/09/2022 Patient: ANABELLA FAYE Sex#: M #: 1950 Sera#: [id number] Location: [place] [address] Ordering Provider: CHUCK QUIÑONES Procedure Requested: [id number] XR CHEST 2 VIEWS (PA AND LATERAL) [...] SITE: Home, due to Covid 19 Chuck Quiñones MD IMG DIAGNOSTIC IMAGING [facility] * (ABNORMAL) GLUCOSE POC (01/09/2022 8:33 AM [...] City/State/ZIP Code Phone Number Per[place] [address] [address] [facility] * (ABNORMAL) Complete Blood Count (01/09/2022 6:14 [...] 01/09/2022 6:58 AM CDT Blood (Venous) Chuck Quiñones MD LAB BLOOD ORDERABLES City/State/ZIP Code Phone Number Performing [place] [address] [facility] [address] [facility] * (ABNORMAL) Comprehensive Metabolic Panel (01/09/2022 6:14 [...] CDT Comment: Reference range updated 06/29/21 with [facility] conversion to [employer] instrumentation. Bilirubin Total 1.00 0.20 - 01/09/2022 SLRL 1.10 7:36 AM mg/dL CDT Blood Urea Nitrogen 11 9 - 23 01/09/2022 [facility] mg/dL 7:36 AM CDT Creatinine 1.10 0.70 - 01/09/2022 SLRL 1.30 7:36 AM mg/dL CDT eGFR 71.3 60.0 - 01/09/2022 [facility] 200.0 7:36 AM mL/min/1 CDT .73m*2 Comment: The National Kidney Foundation and the [place] Society of Nephrology (NKF-ASN) recommends using the [...] 01/09/2022 6:58 AM CDT Blood (Venous) Chuck Quiñones MD LAB BLOOD ORDERABLES City/State/ZIP Code Phone Number Performing [place] [address] * Electrocardiogram (ECG) (01/09/2022 5:25 AM CDT) [...] Narrative TRACEMASTER - 01/09/2022 2:59 PM CDT [facility] Test Date: 2022-01-09 Pat Name: ANABELLA FAYE Department: HS Room: H618 Gender: Male 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: 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 : 1950 Requested By: CHUCK QUIÑONES Order Number: [id number] Jaqui MD: Anna Quintanilla Measurements Intervals [place] Rate: 83 P: 0 RI: QRS: -68 QRSD: 159 T: 89 QT: 427 QTc: 502 Interpretive Statements Uncertain rhythm: review possible ACCELERATED JUNCTIONAL RHYTHM Nonspecific IVCD with LAD Inferior infarct, old Anteroseptal infarct, age indeterminate Electronically Signed On 01-09-2022 14:59:15 CDT by Anna Quintanilla Procedure Note Anna Quintanilla MD - 01/09/2022 [facility] Test Date: 2022-01-09 Pat Name: ANABELLA FAYE Department: [facility] Room: 18 Gender: Male 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: [id number] : 1950 Requested By: CHUCK QUIÑONES Order Number: [id number] Reading MD: Anna Quintanilla Measurements Intervals [place] Rate: 83 P: 0 RI: QRS: -68 QRSD: 159 T: 89 QT: 427 QTc: 502 Interpretive Statements Uncertain rhythm: review possible ACCELERATED JUNCTIONAL RHYTHM Nonspecific IVCD with LAD Inferior infarct, old Anteroseptal infarct, age indeterminate Electronically Signed On 01-09-2022 14:59:15 CDT by Anna Quintanilla Chuck Quiñones MD ECG ORDERABLES City/State/ZIP Code Phone Number [...] 01/08/2022 4:51 PM CDT Blood (Venous) Chuck Quiñones MD LAB BLOOD ORDERABLES City/State/ZIP Code Phone Number Performing [place] [address] [facility] [address] [place] [address] * ICD INSERTION DUAL, UPPER EXTREMITY VENOGRAM (01/08/2022 3:06 PM CDT) Modality Anatomical Region Laterality Cardiac Electrophysiology Anatomical Location / Laterality Collection Method / Volume Smitha ection Time Received Time Specimen (Source) Narrative 01/08/2022 3:25 PM CDT [facility] CARDIAC ELECTROPHYSIOLOGY SERVICE OPERATIVE REPORT Date of Procedure: 01/08/2022 PREOPERATIVE DIAGNOSES: Sustained ventricular tachycardia POSTOPERATIVE DIAGNOSES: Status-post dual chamber implantable cardioverter defibrillator (ICD) implantation PROCEDURES PERFORMED: 1. Left upper extremity venogram. 2. ICD implantation. ATTENDING TAR POT WORKER: Anali Herr MD FELLOW TAR POT WORKER: Dr. Chuck Quiñones ESTIMATED BLOOD LOSS: <5 mL. COMPLICATIONS: None [...] the modified Seldinger technique, 7 and 9 Arabic peel away sheaths were placed in the [...] DATA: Devices ICD Implant Defibrillator Evera Mri Dr Jean-Baptiste [id number] - [id number] - Implanted (Left) Chest Inventory item: IMPLANT DEFIBRILLATOR EVERA MRI DR XT [id number] Model/Cat number: [id number] Serial number: [id number] Final Inspector Movement Assembly: [employer]TR[employer] CARDIAC RHYTHM MGMT Lot number: [id number] Area/Chamber: Chest Laterality: Left Implant Date: 01/08/2022 As of 01/08/2022 Status: Implanted Mode: MVP Lower Rate: 50 Upper Rate: 130 Lead Implant Lead Sprint Quattro 62cm Secure S [id number] - [id number] - Implanted Heart Ventricle Inventory item: IMPLANT LEAD SPRINT QUATTRO 62CM SECURE S [id number] Model/Cat number: [id number] Serial number: [id number] Final Inspector Movement Assembly: MEDTRONIC CARDIAC RHYTHM [facility] Lot number: [id number] Area/Chamber: Heart Ventricle Implant Date: 01/08/2022 As of 01/08/2022 Status: Implanted Location: RV Sensing Threshold (mV): 6.8 Slew Rate (V/s): 2.6 Pacing Impedance (ohms): 559 Capture Threshold (V): 0.5 Capture Threshold (mA): 1.1 Implant Lead Pacemaker Atrial/Ventricle 52cm Capsure Fix Novus [id number] - [id number] - Implanted (Right) Heart Atrium Inventory item: IMPLANT LEAD PACEMAKER ATRIAL/VENTRICLE 52CM CAPSURE FIX NOVUS 4076-52 Model/Cat number: [id number] Serial number: [id number] Final Inspector Movement Assembly: [employer] MGMT Lot number: [id number] Area/Chamber: [facility] Implant Date: 01/08/2022 As [...] 01/07/2022 VYAIRE 87.26 % 1:22 PM CDT [id number]% (pre) 1.57 1.04 - 01/07/2022 VYAIRE 4.54 [...] 49 % 01/07/2022 VYAIRE 1:22 PM CDT [id number] (pre%PRED) 105 % 01/07/2022 VYAIRE 1:22 PM CDT [id number] (pre%PRED) 63 % 01/07/2022 VYAIRE 1:22 PM [...] Possible restriction Narrative 01/07/2022 2:18 PM CDT [facility] Measurement date01/07/22 Pulmonary Function Report - SPIROMETRY [...] 0 01/07/2022 8:37 AM CDT Blood (Venous) Maxine Song MD LAB BLOOD ORDERABLES City/State/ZIP Code Phone Number [place]forming [place] [address] * COVID-19 Diagnostic PCR (PUI) (01/05/2022 5:31 PM CDT) Pathologist Signature Component Value Ref Test Method Analysis Performed A t Range Time SARS-COV-2 PCR Negative Negative 01/06/2022 [facility]RL 6:39 AM CDT Anatomical Location / Laterality Collection Method / Volume Smitha ection Time Received Time Specimen (Source) Non-Blood Collection / Unknown 01/05/2022 5:31 PM CDT 01/05/2022 6:00 PM CDT Swab (NASOPHARYNGEAL SWAB) Narrative [facility] - 01/06/2022 6:39 AM CDT This RT-PCR test has been authorized by the FDA under an Emergency Use Authorization (EUA) for use by authorized laboratories. Ponce Fonseca MD MICROBIOLOGY - [facility]/State/ZIP Code Phone Number [facility] [place] [address] [facility] [address] [place] [address] * US Carotid Duplex bilat (01/03/2022 8:53 [...] in the vertebral art eries. READING SITE: [facility] Narrative 01/03/2022 9:25 AM CDT Patient: ANABELLA FAYE Sex#: M #: 1950 Sera#: [id number] Location: [address] H618-01 Ordering Provider: AGNES UNGER Procedure Requested: [id number] US CAROTID DUPLEX BILAT Reason for Exam: [...] Note Esthela Bland MD - 01/03/2022 Patient: ANABELLA FAYE Sex#: M #: 1950 Sera#: [id number] Location: [address] H618-01 Ordering Provider: AGNES UNGER Procedure Requested: [id number] US CAROTID DUPLEX BILAT Reason for Exam: [...] in the vertebral sara colleen. READING SITE: [facility] Agnes Unger MD CV VASCULAR ORDERABLES * [...] CDT Narrative 01/06/2022 3:41 PM CDT NAME: Anabella Faye :[id number] GENDER:M [facility] CPI:[id number] STAR ACCT NUM:[id number] TEST:Cardiac MRI with and without contrast and Imaging Flow Velocity Map TEST DATE: TEST LOCATION:L PATIENT STATUS:I REFERRING PHYSICIAN:Oralia Avelar MD REASON FOR TEST:Evaluate NICM(Unspecified NICM) PROCEDURE NOTE: Patient was imaged on the [place] [id number] 1.5T magnet scanner. A total of 40ml [...] Normal caliber descending aorta without coarctation. Conventional iz2glqm arch anatomy. Normal caliber main pulmonary artery. [...] Moshe Neely MD. Moshe Neely MD [address] [facility], [address] [place] [address] DICTATED:2022-01-03 16:05:11.0 TRANSCRIBED:2022-01-06 12:55:15.0 PROVIDER APPROVAL:2022-01-06 15:01:45.0 Procedure Note Moshe Neely MD - 01/06/2022 NAME: Anabella Faye :[id number] GENDER:Randal [facility] CPI:[id number] [facility] NUM:[id number] TEST:Cardiac MRI with and without contrast and Imaging Flow Velocity Map TEST DATE: TEST LOCATION:L PATIENT STATUS:I REFERRING PHYSICIAN:Oralia Avelar MD REASON FOR TEST:Evaluate NICM(Unspecified NICM) PROCEDURE NOTE: Patient was imaged on the [place] [id number] 1.5T magnet scanner. A total of 40ml [...] Normal caliber descending aorta without coarctation. Conventional ik2pqnl arch anatomy. Normal caliber main pulmonary artery. [...] Moshe Neely MD. Moshe Neely MD [address] [facility], [address] [place] [address] DICTATED:2022-01-03 16:05:11.0 TRANSCRIBED:2022-01-06 12:55:15.0 PROVIDER APPROVAL:2022-01-06 15:01:45.0 [...] City/State/ZIP Code Phone Number Performing [place] [address] * (ABNORMAL) Creatinine Clearance (Urine) (01/02/2022 11:58 [...] City/State/ZIP Code Phone Number Performing Address Organization [place], [place] [address] [place] [address] * CT Abdomen wo contrast (01/02/2022 3:22 PM CDT) Modality Anatomical Region Laterality Computed Tomography Abdomen Anatomical Location / Laterality Collection Method / Volume Smitha ection Time Received Time Specimen (Source) 01/02/2022 3:22 PM CDT Impressions 01/02/2022 3:48 PM CDT Punctate nonobstructing left renal calculi. Otherwise unremarkable noncontrast appearance of the kidneys. For other findings please see above. READING SITE: [facility] Narrative 01/02/2022 3:48 PM CDT Patient: ANABELLA FAYE Sex#: M #: 1950 Sera#: [id number] Location: [address] H618-01 Ordering Provider: RAMIRO DALE Procedure Requested: [id number] CT ABDOMEN WO CONTRAST Reason for Exam: L kidney not seen on US Exam Ordered: 01/02/2022 0938 Begin exam date/time: 01/02/2022 1522 Exam Date/Time: 01/02/[address] ABDOMEN WO CONTRAST INDICATION: Evaluate left [...] in the lumbar spine. Anasarca. Procedure Note Maxine Jon, - 01/02/2022 Patient: ANABELLA FAYE Sex#: M #: 1950 Sera#: [id number] Location: [address] H618-01 Ordering Provider: RAMIRO DALE Procedure Requested: [id number] CT ABDOMEN WO CONTRAST Reason for Exam: L kidney not seen on US Exam Ordered: 01/02/2022 0938 Begin exam date/time: 01/02/2022 1522 Exam Date/Time: 01/02/[address] ABDOMEN WO CONTRAST INDICATION: Evaluate left [...] other findings please see above. READING SITE: [facility] Ramiro ORTEGA CT ORDERABLES * CT Chest wo contrast (01/02/2022 3:22 [...] of aortic stenosis is suspected. READING SITE: [place] [address] Narrative 01/02/2022 4:03 PM CDT Patient: ANABELLA FAYE Sex#: M #: 1950 Sera#: [id number] Location: [address] H618-01 Ordering Provider: AGNES UNGER Procedure Requested: [id number] CT CHEST WO CONTRAST Reason for Exam: [...] Note Ghassan Burkett MD - 01/02/2022 Patient: ANABELLA FAYE Sex#: M #: 1950 Sera#: [id number] Location: [address] H618-01 Ordering Provider: AGNES UNGER Procedure Requested: [id number] CT CHEST WO CONTRAST Reason for Exam: [...] of aortic stenosis is suspected. READING SITE: [place] [address] Agnes Unger MD IMG CT ORDERABLES * Oxyhemoglobin Venous (01/02/2022 4:03 [...] City/State/ZIP Code Phone Number Performing Address Organization [address] * Extra Urine Specimen in Mitchell Tube (01/01/2022 10:57 PM CDT) Only the most recent of 2 results within the time period is included. Pathologist Signature Component Value Ref Test Method Analysis Performed A t Range Time RAINBOW DRAW HOLD M[place]ord 01/02/2022 [facility] SPECIMENS Draw/Extra 12:03 PM Tube Hold CDT Specimen Anatomical Location / Laterality Collection Method / Volume Smitha ection Time Received Time Specimen (Source) Non-Blood Collection / Unknown 01/01/2022 10:57 PM CDT 01/01/2022 11:02 PM CDT Urine (Urine Clean Catch) Agnes Unger MD [facility] City/State/ZIP Code Phone Number Performing Address Organization [address] * Extra Urine Specimen in Yellow w/out Preservative (01/01/2022 10:57 PM CDT) Only the most recent of 2 results within the time period is included. Anatomical Location / Laterality Collection Method / Volume Smitha ection Time Received Time Specimen (Source) Non-Blood Collection / Unknown 01/01/2022 10:57 PM CDT 01/01/2022 11:02 PM CDT Urine (Urine Clean Catch) Agnes Unger MD URINE ORDERABLES [facility]/ZIP Code Phone Number Performing [place] [address] [address] * Urinalysis (includes microscopic review, if indicated) [...] Negative 01/01/2022 [facility]RL 11:08 PM CDT Specific [place] 1.006 1.005 - 01/01/2022 [facility] Urine 1.030 [...] Clean Catch) Agnes Unger MD URINE ORDERABLES [facility]/State/ZIP Code Phone Number Performing [place] [address] [address] * Fecal Occult Blood, diagnostic (non-neoplasm screening) (01/01/2022 7:24 PM CDT) Pathologist Signature Component Value Ref Test Method Analysis Performed A t Range Time Fecal Occult Blood Negative Negative 01/01/2022 RL 9:22 PM CDT Sample 1 Collection 01/01/2022 01/01/2022 SLRL Date 9:22 PM CDT Anatomical Location / Laterality Collection Method / Volume Smitha ection Time Received Time Specimen (Source) Non-Blood Collection / Unknown 01/01/2022 7:24 PM CDT 01/01/2022 7:29 PM CDT Stool (Stool) Agnes Unger MD BODY FLUIDS AND STOOLS [facility]/ZIP Code Phone Number Performing [place] [address] * US Abdomen complete (01/01/2022 3:01 [...] THIS DOCUMENT HAS BEEN ELECTRONICALLY SIGNED BY RAVEN CEDENO MD Narrative 01/01/2022 3:39 PM CDT Patient: Anabella Faye Sex#: M #: 1950 Sera#: [id number] Location: [address] ICU Ordering Provider: AGNES UNGER Procedure Requested: [id number] US ABDOMEN COMPLETE Reason for Exam: LVAD Evaluation Exam Ordered: 01/01/2022 0959 Begin exam date/time: 01/01/2022 140 Exam Date/Time: 01/01/2022 140 PROCEDURE INFORMATION: Exam: US Abdomen Complete Exam [...] aneurysm. Inferior vena cava: Normal. Procedure Note Raven Cedeno MD - 01/01/2022 Patient: Anabella Faye Sex#: M #: 1950 Sera#: [id number] Location: [address] ICU Ordering Provider: AGNES UNGER Procedure Requested: [id number] US ABDOMEN COMPLETE Reason for Exam: LVAD [...] THIS DOCUMENT HAS BEEN ELECTRONICALLY SIGNED BY RAVEN CEDENO MD Agnes ADKINS US ORDERABLES * (ABNORMAL) APTT - Heparin Infusion Monitoring (01/01/2022 2:53 PM CDT) Pathologist Signature Component Value Ref Test Method Analysis Performed A t Range Time APTT 114 (H) 22 - 34 01/01/2022 SLRL Sec 4:01 PM CDT Anatomical Location / Laterality Collection Method / Volume Smitha ection Time Received Time Specimen (Source) Venipuncture / Unknown 01/01/2022 2:53 PM CDT 0 01/01/2022 2:57 PM CDT Blood (Venous) Agnes Unger MD LAB BLOOD ORDERABLES [facility]/State/ZIP Code Phone Number Performing [place] [address] * Antibody Screen (01/01/2022 2:50 PM CDT) Pathologist Signature Component Value Ref Test Method Analysis Performed A t Range Time Antibody Screen Negative 01/01/2022 [facility] 2:58 PM [facility] BLOOD BANK CDT Anatomical Location / Laterality Collection Method / Volume Smitha ection Time Received Time Specimen (Source) Venipuncture / Unknown 01/01/2022 2:50 PM CDT 0 01/01/2022 2:57 PM CDT Blood (Venous) Maxine Song MD BLOOD BANK TEST ORDERABLES [facility]/ZIP Code Phone Number Performing Address Organization [place], [place] [id number] [place] [address] BLOOD BANK * ABORH Type (01/01/2022 2:50 PM CDT) Pathologist Signature Component Value Ref Test Method Analysis Performed A t Range Time ABORH Type B Positive 01/01/2022 [facility] 2:58 PM [facility] [employer] [facility] [employer] [facility] BLOOD BANK CDT Anatomical Location / Laterality Collection Method / Volume Smitha ection Time Received Time Specimen (Source) Venipuncture / Unknown 01/01/2022 2:50 PM CDT 0 01/01/2022 2:57 PM CDT Blood (Venous) Maxine Song MD BLOOD BANK TEST ORDERABLES [facility]/ZIP Code Phone Number Performing Address Organization [place], [place] [address] [place] [address] BLOOD BANK * (ABNORMAL) Clotting Screen (01/01/2022 2:50 PM [...] City/State/ZIP Code Phone Number Performing [place] [address] [address] [facility] * Haptoglobin (01/01/2022 2:50 PM CDT) Pathologist [...] - 01/04/2022 1:06 PM CDT Performed at: [address] [id number] [address] Freight Rate Specialist: Cesar Grant MD, Phone: [phone] Agnes Unger MD LAB BLOOD ORDERABLES [facility]/ZIP Code Phone Number Performing [place] [address] [facility] [address] * XR Chest post line drain or [...] Similar small left pleural effusion. READING SITE: [facility] 01/01/2022 12:53 PM CDT Patient: ANABELLA FAYE Sex#: M #: 1950 Sera#: [id number] Location: [place] [address] Ordering Provider: AGNES UNGER Procedure Requested: [id number] XR CHEST POST LINE DRAIN OR AIRWAY [...] Note Duane Morton MD - 01/01/2022 Patient: ANABELLA FAYE Sex#: M #: 1950 Sera#: [id number] Location: [address] [id number] Ordering Provider: AGNES UNGER Procedure Requested: [id number] XR CHEST POST LINE DRAIN OR AIRWAY [...] Similar small left pleural effusion. READING SITE: [facility] Agnes Unger MD IMG DIAGNOSTIC IMAGING [facility] * CATHETERIZATION, HEART, RIGHT (01/01/2022 12:04 PM [...] Sat: 99 % PA Sat: 66.2 % Kaela CO: 5.97 L/min Kaela CI: 2.42 L/min/m2 SVR: 965.05 dsc-5 PVR: [...] PORT HEPARIN CTD LF 8FR 5-LUMEN 110CM [id number]) catheter was inserted and advanced to the pulmonary artery wedge position under fluoroscopic guidance. Measurements of pressures, aortic (via pulse ox) and venous (via blood draw) oxygen saturations, and cardiac output (by Kaela using assumed VO2) were obtained. PA Catheter Details 2 A (CATHETER PENTALUMEN RA EXTRA PORT HEPARIN CTD LF 8FR 5-LUMEN 110CM [id number]). The catheter remained in place throughout the procedure for continuous monitoring of pulmonary artery pressure and was left in place following the procedure. 62cm Estimated Blood Loss During the procedure the estimated blood loss was minimal. Susan Caceres MD CV CARDIAC CATH ORDERABLES * [...] 5. Mild aortic stenosis. 6. Mild MR. Seij-bv-abymdqhs TR. 7. Estimated central venous and PA pressures are elevated. No previous study available for comparison. Dr. Justin Powers MD (Electronically Signed) Final Date: 01 January 2022 11:27 Narrative 01/01/2022 11:28 AM CDT ECHOCARDIOGRAM REPORT [facility] Name: ANABELLA FAYE Date: 01/01/2022 09:06 Chart #: [id number] : 1950 Location: [facility] Sono: radha Age: 71 Gender: M Referring: JUANSUSAN INGRAM Room #: H515 Fellow: Indication:cardiogenic shock Procedure: [...] Inferior, Apical Anterior, Mid Anterior, Basal Anterior, [place] FINDINGS LV Ejection Fraction: 24 Frequent ectopy. [...] 01/01/2022 ECHOCARDIOGRAM REPORT [facility] Name: ANABELLA FAYE Date: 01/01/2022 09:06 Chart #: [id number] : 1950 Location: [facility] Sono: radha Age: 71 Gender: M Referring: SUSAN CACERES Room #: H515 Fellow: Indication:cardiogenic shock [...] Inferior, Apical Anterior, Mid Anterior, Basal Anterior, [place] FINDINGS LV Ejection Fraction: 24 Frequent ectopy. [...] 5. Mild aortic stenosis. 6. Mild MR. Xkga-fo-xcgugzni TR. 7. Estimated central venous and PA pressures are elevated. No previous study available for comparison. Dr. Justin Powers MD (Electronically Signed) Final Date: 01 January 2022 11:27 Susan Caceres MD CV ECHO ORDERABLES * Fibrinogen [...] 0 01/01/2022 3:20 AM CDT Blood (Venous) Maxine Song MD LAB BLOOD ORDERABLES City/State/ZIP Code Phone Number Performing [place] [address] * Retype Patient ABORH (01/01/2022 12:25 AM CDT) Pathologist Signature Component Value Ref Test Method Analysis Performed A t Range Time ABORH Type B Positive 01/01/2022 [facility] 3:24 PM [facility] [facility] BLOOD BANK CDT Confirm Blood Type Yes 01/01/2022 [facility] 3:24 PM [facility] [employer] [facility] [employer] [facility] BLOOD BANK CDT Anatomical Location / Laterality Collection Method / Volume Smitha ection Time Received Time Specimen (Source) Venipuncture / Unknown 01/01/2022 12:25 AM CDT 0 01/01/2022 12:38 AM CDT Blood (Venous) Maxine Song MD BLOOD BANK TEST ORDERABLES [facility]/ZIP Code Phone Number [place] [address] BLOOD BANK * (ABNORMAL) Hemoglobin A1C (01/01/2022 12:25 AM [...] 0 01/01/2022 12:38 AM CDT Blood (Venous) Maxine Song MD LAB BLOOD ORDERABLES [facility]/ZIP Code Phone Number Performing Address Organization [place], [place] [phone] [place] [address] * (ABNORMAL) Digoxin (01/01/2022 12:25 AM CDT) Pathologist Signature Component Value Ref Test Method Analysis Performed A t Range Time Digoxin 2.3 (H) 0.8 - 01/01/2022 [facility]RL 2.0 1:25 AM ng/mL CDT Anatomical Location / Laterality Collection Method / Volume Smitha ection Time Received Time Specimen (Source) Venipuncture / Unknown 01/01/2022 12:25 AM CDT 0 01/01/2022 12:38 AM CDT Blood (Venous) Susan Ccaeres MD LAB BLOOD ORDERABLES [facility]/ZIP Code Phone Number Performing [place] [address] * (ABNORMAL) Iron/Transferrin (01/01/2022 12:25 AM CDT) [...] 0 01/01/2022 12:38 AM CDT Blood (Venous) Susan Caceres MD LAB BLOOD ORDERABLES [facility]/ZIP Code Phone Number Performing Address Organization [address] * Ferritin (01/01/2022 12:25 AM CDT) Pathologist [...] AM CDT Reference range updated 06/29/21 with [facility] conversion to [employer] instrumentation. Susan Caceres MD LAB BLOOD ORDERABLES [facility]/ZIP Code Phone Number Performing Address Organization [address] * (ABNORMAL) Lipid Panel (01/01/2022 12:25 AM [...] CDT Comment: Reference range updated 06/29/21 with [facility] conversion to [employer] instrumentation. Non-HDL Cholesterol 77 0 - 130 [...] 0 01/01/2022 12:38 AM CDT Blood (Venous) Susan Caceres MD LAB BLOOD ORDERABLES City/State/ZIP Code Phone Number Performing [place] [address] * BENZODIAZEPINES CONFIRMATION, U (12/31/2021 11:30 PM CDT) Pathologist Signature Component Value Ref Test Method Analysis Performed A t Range Time Alprazolam by Negative Cutoff: 01/06/2022 [facility] LC-MS/MS 10 ng/mL 12:25 PM LABORATORIES CDT Alpha-Hydroxyalprazo Negative Cutoff: 01/06/2022 [facility] krishnan by LC-MS/MS 10 ng/mL 12:25 PM LABORATORIES CDT Chlordiazepoxide by Negative Cutoff: 01/06/2022 [facility] LC-MS/MS 10 ng/mL 12:25 PM LABORATORIES CDT Clonazepam by Negative Cutoff: 01/06/2022 [facility] LC-MS/MS 10 ng/mL 12:25 PM LABORATORIES CDT 7-aminoclonazepam by Negative Cutoff: 01/06/2022 [facility] LC-MS/MS 10 ng/mL 12:25 PM LABORATORIES CDT Diazepam by LC-MS/MS Negative Cutoff: 01/06/2022 [facility] 10 ng/mL 12:25 PM LABORATORIES CDT Nordiazepam by Negative Cutoff: [facility]20[facility] ng/mL 12:25 PM LABORATORIES CDT Midazolam by Negative Cutoff: 01/06/2022 [facility] LC-MS/MS 10 ng/mL 12:25 PM LABORATORIES CDT Alpha-Hydroxy Negative Cutoff: 01/06/2022 [facility] Midazolam by 10 ng/mL 12:25 PM LABORATORIES LC-MS/MS CDT Oxazepam by LC-MS/MS 251 Cutoff: 01/06/2022 [facility] 10 ng/mL 12:25 PM LABORATORIES CDT Temazepam by 3670 Cutoff: 01/06/2022 [facility] LC-MS/MS 10 ng/mL 12:25 PM LABORATORIES CDT Clobazam by LC-MS/MS Negative Cutoff: 01/06/2022 [facility] 10 ng/mL 12:25 PM LABORATORIES CDT N-Desmethylclobazam See Below Cutoff: 01/06/2022 [facility] by LC-MS/MS 10 ng/mL 12:25 PM LABORATORIES CDT Comment: Unknown interfering substance present; unable to obtain results. Flunitrazepam by Negative Cutoff: 01/06/2022 [facility] BEATRIZ LC-MS/MS 10 ng/mL 12:25 PM LABORATORIES CDT 7-aminoflunitrazepam Negative Cutoff: 01/06/2022 [facility] by LC-MS/MS 10 ng/mL 12:25 PM LABORATORIES CDT Flurazepam by Negative Cutoff: 01/06/2022 [facility] LC-MS/MS 10 ng/mL 12:25 PM LABORATORIES CDT 2-Hydroxy Ethyl Negative Cutoff: 01/06/2022 [facility] Flurazepam by 10 ng/mL 12:25 PM LABORATORIES LC-MS/MS CDT Lorazepam by Negative Cutoff: 01/06/2022 [facility] LC-MS/MS 10 ng/mL 12:25 PM LABORATORIES CDT Prazepam by LC-MS/MS Negative Cutoff: 01/06/2022 [facility] 10 ng/mL 12:25 PM LABORATORIES CDT Triazolam by Negative Cutoff: 01/06/2022 [facility] LC-MS/MS 10 ng/mL 12:25 PM LABORATORIES CDT Alpha-Hydroxy Negative Cutoff: 01/06/2022 [facility] Triazolam by 10 ng/mL 12:25 PM LABORATORIES LC-MS/MS CDT Zolpidem by LC-MS/MS Negative Cutoff: 01/06/2022 [facility] 10 ng/mL 12:25 PM LABORATORIES CDT Zolpidem Negative Cutoff: 01/06/2022 [facility] Gxisnd-7-Nfqronymii 10 ng/mL 12:25 PM LABORATOR IES acid by LC-MS/MS CDT Benzodiazepines Positive. 01/06/2022 [facility] Interpretation 12:25 PM LABORATORIES CDT Comment: A DDITIONAL INFORMATION--------- This report is intended for use in clinical monitoring and management of patients. It is not intended for use in employment-related testing. This test was developed and its performance characteristics determined by [facility] in a manner consistent with CLIA requirements. This test has not been cleared or approved by the U.S. Food and Drug Administration. Test Performed by: [facility] [address] [place] [address] Freight Rate Specialist: Albert Singh M.D. Ph.D.; CLIA# [id number] Anatomical Location / Laterality Collection Method / Volume Smitha ection Time Received Time Specimen (Source) Non-Blood Collection / Unknown 12/31/2021 11:30 PM CDT 01/01/2022 10:35 AM CDT Urine (Urine Clean Catch) Maxine Song MD URINE ORDERABLES City/State/ZIP Code Phone Number Performing Address [place] [address] * (ABNORMAL) COVID PCR - Rapid (12/31/2021 [...] CDT 01/01/20 11:50 PM CDT NASOPHARYNGEAL SWAB Susan Caceres MD MICROBIOLOGY - [facility] City/State/ZIP Code Phone Number [place] [address] [facility] [address] [facility] * (ABNORMAL) Toxicology Screening Panel (12/31/2021 11:30 [...] for all positive drugs except tricyclic antidepressants. Maxine Song MD URINE ORDERABLES City/State/ZIP Code Phone Number Performing [place] [address] [address] [facility] * (ABNORMAL) Uric Acid (12/31/2021 8:44 PM [...] with [facility] conversion to [employer] instrumentation. Maxine Song MD LAB BLOOD ORDERABLES [facility]/ZIP Code Phone Number Performing [place] [address] * Prealbumin (12/31/2021 8:44 PM CDT) Pathologist [...] with [facility] conversion to [employer] instrumentation. Maxine Song MD LAB BLOOD ORDERABLES [facility]/ZIP Code Phone Number Performing Address Organization [place], [place] [address] [place] [address] * Magnesium (12/31/2021 8:44 PM CDT) Only [...] 0 12/31/2021 8:50 PM CDT Blood (Venous) Maxine Song MD LAB BLOOD ORDERABLES [facility]/ZIP Code Phone Number Performing [place] [address] * Rapid Plasma Reagin (12/31/2021 8:44 PM CDT) Pathologist Signature Component Value Ref Test Method Analysis Performed A t Range Time RPR Nonreactive Nonreact 01/02/2022 [facility] 6:34 AM CDT Anatomical Location / Laterality Collection Method / Volume Smitha ection Time Received Time Specimen (Source) Venipuncture / Unknown 12/31/2021 8:44 PM CDT 0 12/31/2021 8:50 PM CDT Blood (Venous) Maxine Song MD LAB BLOOD ORDERABLES [facility]/ZIP Code Phone Number Performing [place] [address] [place] [address] * PSA Screen (12/31/2021 8:44 [...] - 01/01/2022 12:00 PM CDT Method for [facility] is [employer]. Maxine Song MD LAB BLOOD ORDERABLES [facility]/ZIP Code Phone Number [place] [address] * (ABNORMAL) Creatinine (Serum) (12/31/2021 8:44 [...] 0 12/31/2021 8:50 PM CDT Blood (Venous) Maxine Song MD LAB BLOOD ORDERABLES [facility]/ZIP Code Phone Number Performing Address Organization [place], [place] [id number] [place] [address] * Acute Hepatitis Panel (12/31/2021 8:44 PM [...] 0 12/31/2021 8:50 PM CDT Blood (Venous) Maxine Song MD LAB BLOOD ORDERABLES [facility]/ZIP Code Phone Number Performing Address Organization [place], [place] [id number] [place] [address] * HIV AG/JOEY (12/31/2021 8:44 PM CDT) Pathologist Signature Component Value Ref Test Method Analysis Performed A t Range Time HIV AG/JOEY Nonreactive Nonreact 01/01/2022 [facility] sabina 12:00 PM CDT Anatomical Location / Laterality Collection Method / Volume Smitha ection Time Received Time Specimen (Source) Venipuncture / Unknown 12/31/2021 8:44 PM CDT 0 12/31/2021 8:50 PM CDT Blood (Venous) Maxine Song MD LAB BLOOD ORDERABLES [facility]/ZIP Code Phone Number Performing Address Organization [place], [place] [id number] [place] [address] * Lactate Dehydrogenase (12/31/2021 8:44 PM CDT) [...] PM CDT Reference range updated 06/29/21 with [facility] conversion to MOMENTFACE SRO instrumentation. Maxine Song MD LAB BLOOD ORDERABLES [facility]/State/ZIP Code Phone Number Performing Address Organization [address] * Lactate Venous WB - Reflex STAT [...] 0 12/31/2021 8:50 PM CDT Blood (Venous) Susan Caceres MD LAB BLOOD ORDERABLES [facility]/State/ZIP Code Phone Number Performing Address Organization [place], [place] [id number] [place] [address] * (ABNORMAL) Prothrombin Time/INR (12/31/2021 8:44 PM [...] 0 12/31/2021 8:50 PM CDT Blood (Venous) Susan Caceres MD LAB BLOOD ORDERABLES [facility]/ZIP Code Phone Number Performing [place] [address] [facility] [address] * (ABNORMAL) Thyroid Stimulating Hormone (12/31/2021 8:44 [...] CDT Blood (Venous) Narrative [facility] - 12/31/2021 9:30 PM CDT Reference range updated 06/29/21 with [facility] conversion to [employer] instrumentation. Susan Caceres MD LAB BLOOD PumantABLES [facility]/ZIP Code Phone Number Performing Address Organization [place], [place] [id number] [place] [address] * (ABNORMAL) BNP (12/31/2021 8:44 PM CDT) Pathologist Signature Component Value Ref Test Method Analysis Performed A t Range Time BNP 933 (H) 0 - 100 12/31/2021 [facility] pg/mL 9:22 PM CDT Anatomical Location / Laterality Collection Method / Volume Smtiha ection Time Received Time Specimen (Source) Venipuncture / Unknown 12/31/2021 8:44 PM CDT 0 12/31/2021 8:50 PM CDT Blood (Venous) Narrative [facility] - 12/31/2021 9:22 PM CDT [facility] converted from NTproBNP (Ortho - Vitros 5600) to BNP (Siemens - Atellica) on June 29, 2021. Susan Caceres MD LAB BLOOD ORDERABLES [facility]/ZIP Code Phone Number Performing Address Organization [place], [place] [address] [place] [address] * (ABNORMAL) T4 Free (12/31/2021 8:44 PM [...] PM CDT Reference range updated 06/29/21 with [facility] conversion to [employer] SRO instrumentation. Maxine Song MD LAB BLOOD ORDERABLES City/State/ZIP Code Phone Number Performing [place] [address] [address] [facility] * XR Chest single view frontal (12/31/2021 [...] or edited the final report. READING SITE: [facility] Narrative 01/01/2022 7:49 AM CDT Patient: ANABELLA FAYE Sex#: M #: [id number] Sera#: [id number] Location: [address] H515-01 Ordering Provider: SUSAN CACERES Procedure Requested: [id number] XR CHEST SINGLE VIEW FRONTAL Reason for Exam: Pulmonary edema Exam Ordered: 12/31/2021 191 Begin exam date/time: 12/31/20211922 Exam Date/Time: 12/31/20211938 [...] Note Ghassan Burkett MD - 01/01/2022 Patient: ANABELLA FAYE Sex#: M #: [id number] Sera#: [id number] Location: [address] H515-01 Ordering Provider: SUSAN CACERES Procedure Requested: [id number] XR CHEST SINGLE VIEW FRONTAL Reason for [...] or edited the final report. READING SITE: [facility] Susan [facility] ORDMarbin HONG documented in this encounter Visit Diagnoses Diagnosis Acute on chronic systolic heart failure (HCC) - Primary Acute on chronic systolic heart failure Chronic systolic heart failure (HCC) Chronic systolic heart failure Hypothyroidism (acquired) Unspecified hypothyroidism Heart failure with reduced ejection fra ction (HCC) NICM (nonischemic cardiomyopathy) (HCC) COVID-19 virus infection Persistent atrial fibrillation (HCC) Atrial fibrillation Acute kidney injury (HCC) Benign essential hypertension Essential hypertension, benign Mixed hyperlipidemia Cardiogenic shock (HCC) Cardiogenic shock Primary insomnia Persistent disorder of initiating or ma intaining sleep Prostate cancer (HCC) Malignant neoplasm of prostate Obesity Obesity, unspecified Type 2 diabetes mellitus (HCC) Elevated liver enzymes Other nonspecific abnormal serum enzyme levels Atrial fibrillation (HCC) Atrial fibrillation Hyponatremia Hyposmolality and/or hyponatremia Ventricular tachycardia (HCC) Paroxysmal ventricular tachycardia documented in this encounter Administered Medications Action Date Dose Rate Site Medication Order MAR Action 01/02/2022 12:04 AM CDT 650 mg acetaminophen (TYLENOL) tablet 325-650 Given mg 325-650 mg, Oral, Every 6 hours PRN, mild pain (pain score 1-3), fever, Starting on Wed12/31/21 at 1910, Do not exceed 4 GM/DAY of acetaminophen. If 6 5 or older do not exceed 3 GM/DAY. If chronic alcoholic do not exceed 2 GM/DAY. 01/07/2022 9:50 PM CDT 650 mg acetaminophen (TYLENOL) tablet 325-650 Given mg 325-650 mg, Oral, Every 6 hours PRN, mild pain (pain score 1-3), fever greater than 101.5 F, Starting on Wed12/31/21 at 2141, Do not exceed 4 GM/DAY of acetaminophen. If 65 or older do no t exceed 3 GM/DAY. If chronic alcoholic d o not exceed 2 GM/DAY. 650 mg Given 01/06/2022 9:03 PM CDT 650 mg Given 01/05/2022 10:16 PM CDT 01/09/2022 8:11 AM CDT 650 mg acetaminophen (TYLENOL) tablet 325-650 Given mg 325-650 mg, Oral, Every 4 hours PRN, mild pain (pain score 1-3), Starting on Adrienne 01/08/22 at 1529, For 24 hours, Do no t exceed 4 GM/DAY of acetaminophen. If 6 5 or older do not exceed 3 GM/DAY. If chronic alcoholic do not exceed 2 GM/DAY. 650 mg Given 01/09/2022 4:01 AM CDT 650 mg Given 01/08/2022 9:03 PM CDT aluminum-magnesium hydroxide-simethicon e (MAALOX PLUS) 400-400-40 mg/5 mL suspension 15 mL 15 mL, Oral, Every 4 hours PRN, indigestion, Starting on Wed12/31/21 at 1910, Avoid if estimated glomerular filtration rate (eGFR) is less than 20 mL/minute/1.73m2. 01/09/2022 8:11 AM CDT 100 mg amiodarone (CORDARONE) tablet 100 mg Given 100 mg, Oral, Daily, First dose (after last modification) on Wed01/09/22 at 090 0 01/08/2022 9:22 AM CDT 200 mg amiodarone (CORDARONE) tablet 200 mg Given 200 mg, Oral, Daily, First dose on Wed12/31/21 at 2100 200 mg Given 01/07/2022 9:35 AM CDT 200 mg Given 01/06/2022 8:55 AM CDT apixaban (ELIQUIS) tablet 5 mg 5 mg, Oral, 2 times daily, Indications: prevent thromboembolism in chronic atrial fibrillation, First dose on Wed01/09/22 at 2100 01/09/2022 8:11 AM CDT 81 mg aspirin EC tablet 81 mg Given 81 mg, Oral, Daily, First dose on Wed12/31/21 at 2100, DO NOT CRUSH OR CHEW. 81 mg Given 01/08/2022 9:22 AM CDT 81 mg Given 01/07/2022 9:35 AM CDT 01/08/2022 9:04 PM CDT 20 mg atorvastatin (LIPITOR) tablet 20 mg Given 20 mg, Oral, Nightly, First dose on Wed12/31/21 at 2100 20 mg Given 01/07/2022 8:32 PM CDT 20 mg Given 01/06/2022 9:04 PM CDT 01/08/2022 9:07 PM CDT 10 mg cyclobenzaprine (FLEXERIL) tablet 10 mg Given 10 mg, Oral, 3 times daily PRN, muscle spasms, Indications: muscle spasm, Starting on Wed12/31/21 at 2030 10 mg Given 01/07/2022 9:50 PM CDT 10 mg Given 01/06/2022 9:04 PM CDT dextrose (D50W) 50 % injection 25-50 mL 25-50 mL, Intravenous, As needed, low blood sugar, Starting on Wed12/31/21 at 2141, Give if patient NPO and IV access already available. If no IV access give Glucagon SQ or IM in arm and turn patient on side. For blood glucose (BG): Less than 50 mg/dL: Give D50W 5 0 mL. Check BG every 15 minutes and repea t until greater than 80 mg/dL. Less than 70 mg/dL: Give D50W 25 mL. Check BG every 15 minutes and repeat until greater than 80 mg/dL. Less than 70 mg/dL and patient unconscious: Give D50 W 50 mL. Call physician for additional orders. Check BG every 15 minutes and repeat until greater than 80 mg/dL. Once blood glucose greater than 80 mg/dL, check BG in one hour. Call physician if less than 70 mg/dL. dextrose 10% (D10W) bolus 125-250 mL 125-250 mL, Intravenous, at 500-1,000 mL/hr, As needed, low blood sugar, Starting on Wed12/31/21 at 2141, Give i f patient NPO and IV access already available. If no IV access give Glucago n SQ or IM in arm and turn patient on side. For blood glucose (BG): Less than 50 mg/dL: Give D10W 250 mL. Check BG every 15 minutes and repeat until greater than 80 mg/dL. Less than 70 mg/dL: Give D10W 125 mL. Check BG every 15 minutes and repeat until greater damien n 80 mg/dL. Less than 70 mg/dL and patient unconscious: Give D10W 250 mL. Call physician for additional orders. Check BG every 15 minutes and repeat until greater than 80 mg/dL. Once blood glucose greater than 80 mg/dL, check BG in one hour. Call physician if less than 70 mg/dL. 12/31/2021 10:09 PM CDT 250 mcg digoxin (LANOXIN) tablet 250 mcg Given 250 mcg, Oral, Every evening, First dos e on Wed12/31/21 at 2100 01/01/2022 1:18 PM CDT 2.5 mcg/kg/min 9.08 mL/hr DOBUTamine (DOBUTREX) infusion 1999 New Bag mcg/mL (PMX) 2.5 mcg/kg/min 121 kg Order-specific weight (9.075 mL/hr, rounded to 9.08 mL/hr), Intravenous, Continuous, Starting on 12/31/21 at 2100, Begin infusion at 5 mcg/kg/min 2.5 mcg/kg/min 9.08 mL/hr Rate/Dose Change 01/01/2022 12:30 PM CDT 5 mcg/kg/min 18.15 mL/hr New Bag 12/31/2021 10:02 PM CDT 01/07/2022 9:35 AM CDT 100 mg docusate sodium (COLACE) capsule 100 mg Given 100 mg, Oral, 2 times daily PRN, stool softening, Starting on Wed12/31/21 at 1910, Swallow capsule whole 01/09/2022 8:10 AM CDT 10 mg empagliflozin (JARDIANCE) tablet 10 mg Given 10 mg, Oral, Daily, First dose on Wed01/01/22 at 1215, Hold if patient is NPO or critically ill, Does the patient shelby t any criteria to HOLD this medication? N o 10 mg Given 01/08/2022 9:22 AM CDT 10 mg Given 01/07/2022 9:35 AM CDT 01/09/2022 8:11 AM CDT 25 mg eplerenone (INSPRA) tablet 25 mg Given 25 mg, Oral, Daily, First dose on Wed01/04/22 at 1445 25 mg Given 01/08/2022 9:22 AM CDT 25 mg Given 01/07/2022 9:35 AM CDT 01/02/2022 8:34 AM CDT 5 mg finasteride (PROSCAR) tablet 5 mg Given 5 mg, Oral, Daily, First dose on Wed12/31/21 at 2100, DO NOT CRUSH OR CHEW. 5 mg Given 01/01/2022 1:25 PM CDT 5 mg Given 12/31/2021 10:09 PM CDT 01/08/2022 9:24 AM CDT 1 spray fluticasone propionate (FLONASE) 50 Given mcg/actuation nasal spray 1 spray 1 spray, Each Nare, Daily, First dose o n Wed01/01/22 at 0900 1 spray Given 01/07/2022 9:36 AM CDT 1 spray Given 01/06/2022 8:56 AM CDT furosemide (LASIX) 10 mg/mL injection Starting on Wed01/01/22 at 1324, For 1 dose, Maggie Ballard C: elidainet override 01/06/2022 11:37 AM CDT 40 mg furosemide (LASIX) injection 40 mg Given 40 mg, Intravenous, Daily, First dose o n 01/03/22 at 1600 40 mg Given 01/05/2022 9:53 AM CDT 40 mg Given 01/04/2022 10:39 AM CDT 12/31/2021 10:38 PM CDT 80 mg furosemide (LASIX) injection 80 mg Given 80 mg, Intravenous, Once, On Wed 2 at 2200, For 1 dose, Doses less than or equal to 160 mg: Maximum IV push rate 10-40 mg/min. Doses greater than 160 mg : Maximum IV push rate of 4 mg/min. If emergent, may administer at 10-40 mg/min. 01/01/2022 8:11 PM CDT 80 mg furosemide (LASIX) injection 80 mg Given 80 mg, Intravenous, 2 times daily, Firs t dose on Adrienne 01/01/22 at 1700, Doses less than or equal to 160 mg: Maximum IV pus h rate 10-40 mg/min. Doses greater than 160 mg: Maximum IV push rate of 4 mg/min. If emergent, may administer at 10-40 mg/min. 01/01/2022 1:30 PM CDT 80 mg furosemide (LASIX) injection 80 mg Given 80 mg, Intravenous, Once, On Wed 2 at 1345, For 1 dose, Give IV push at a rate of 40 mg/min. Max single IV push dose is 160 mg. Doses greater than 160 mg require IVPB. 01/09/2022 8:10 AM CDT 40 mg furosemide (LASIX) tablet 40 mg Given 40 mg, Oral, Daily, First dose on Wed01/07/22 at 0900 40 mg Given 01/08/2022 9:22 AM CDT 40 mg Given 01/07/2022 9:39 AM CDT 01/03/2022 8:08 AM CDT 20 mL gadoterate (DOTAREM) 0.5 mmol/mL (376.9 Given mg/mL) injection 1-20 mL 1-20 mL, Intravenous, Once in imaging, contrast, Starting on 01/03/22 at 0807, For 1 dose 01/03/2022 8:08 AM CDT 20 mL gadoterate (DOTAREM) 0.5 mmol/mL (376.9 Given mg/mL) injection 1-20 mL 1-20 mL, Intravenous, Once in imaging, contrast, Starting on 01/03/22 at 0807, For 1 dose glucagon (GLUCAGEN) injection 1 mg 1 mg, Intramuscular, As needed, low blood sugar, low blood sugar, Starting on Wed12/31/21 at 2141, Give if patient NPO and no IV access. May give IM or SQ in arm and turn patient on side. Reconstitute powder for injection by adding 1 mL of associate merchant-supplied sterile diluent or sterile water for injection to a vial containing 1 unit o f the drug, to provide solutions containing 1 mg of glucagon/mL. Shake vial gently to dissolve. glucagon (GLUCAGEN) injection 1 mg 1 mg, Subcutaneous, As needed, low bloo d sugar, low blood sugar, Starting on Wed12/31/21 at 2141, Give if patient NPO an d no IV access. May give IM or SQ in arm and turn patient on side. Reconstitute powder for injection by adding 1 mL of associate merchant-supplied sterile diluent o r sterile water for injection to a vial containing 1 unit of the drug, to provide solutions containing 1 mg of glucagon/mL. Shake vial gently to dissolve. glucose chewable tablet 16-32 g 16-32 g, Oral, As needed, low blood sugar, Starting on Wed12/31/21 at 2141, Give food, drink, or glucose tablets to treat low blood glucose if patient able to eat. For blood glucose (BG): Less than 50 mg/dL: Give 30 g of carbohydrat e (32 g if using glucose tablets). Check BG every 15 minutes and repeat until greater than 80 mg/dL. Less than 70 mg/dL: Give 15 g of carbohydrate (16 g if using glucose tablets). Check BG every 15 minutes and repeat until greater than 80 mg/dL. Less than 70 mg/dL and patient unconscious: BG to be treated with D50W until greater than 80 mg/dL. Once BG greater than 80 mg/dL, give 30 g of carbohydrate (32 g if usin g glucose tablets) if patient awake and able to swallow. Once blood glucose greater than 80 mg/dL, check BG in one hour. Call physician if less than 70 mg/dL. 01/01/2022 4:13 AM CDT 5,000 Units heparin (porcine) 1,000 unit/mL Given injection 5,000 Units 5,000 Units, Intravenous, As needed, pe r heparin infusion algorithm, Starting on Wed12/31/21 at 6, Note: See heparin infusion order for instructions on boluses. Half bolus (40 units/kg): 5,00 0 units 12/31/2021 10:19 PM CDT 15.5 Units/kg/hr 19.9 mL/hr heparin 100 units/mL in sodium chloride New Bag 0.45% infusion 15.5 Units/kg/hr 128.8 kg (19.964 mL/hr, rounded to 19.9 mL/hr), Intravenous, Continuous, Starting on 12/31/21 at 2100, For 6 hours, MAXIMUM INITIAL INFUSION RATE = 2000 units/hr 01/01/2022 4:19 AM CDT 16.5 Units/kg/hr 21.2 mL/hr heparin 100 units/mL in sodium chloride Dose Change 0.45% infusion (Dual Sign) 2-30 Units/kg/hr 128.8 kg (2.576-38.64 mL/hr, rounded to 2.5-38.6 mL/hr), Intravenous, Continuous, Starting on Adrienne 01/01/22 at 0419, FIRST 6 hour/DAILY Anti-Xa level is: Less than 0.06: Full IV bolus and INCREASE dose by 3 units/kg/hr. Check Anti-Xa level 6 hours after dose change. 0.06 - 0.29: Half IV bolu s and INCREASE dose by 1 unit/kg/hr. Chec k Anti-Xa level 6 hours after dose change . 0.3 - 0.7: NO DOSE CHANGE. Check Anti-Xa level 6 hours after dose change (if this is the second Anti-Xa within range, check DAILY in AM). 0.71 - 0.9: No bolus and DECREASE dose by 1 unit/kg/hr. Check Anti-Xa level 6 hours after dose change and follow algorithm below. 0.91 - 1.2: No bolus and HOLD INFUSION for 1 hour then RESTART infusion but DECREASE dose by 3 units/kg/hr. Check Anti-Xa level 6 hour s after dose change and follow algorithm below. Greater than 1.2: No bolus and HOLD infusion. Repeat Anti-Xa level STAT and follow algorithm below. REPEAT 6 hour or STAT Anti-Xa level is: Less than or equal to 0.9: Refer to algorithm above. 0.91-1.2: HOLD INFUSION and notify provider to develop plan as strictly adhering to above algorithm may not be appropriate for al l patients. Greater than 1.2: HOLD INFUSION and notify pharmacist who will contact provider with dosing recommendations. For infusions held more than 3 hours or lab draw delay mor e than 3 hours: Contact pharmacist for dosing recommendations. . 01/01/2022 5:10 PM CDT 15.8 Units/kg/hr 19.9 mL/hr heparin 100 units/mL in sodium chloride New Bag 0.45% infusion 15.8 Units/kg/hr 126.2 kg (19.9396 mL/hr, rounded to 19. 9 mL/hr), Intravenous, Continuous, Starting on Adrienne 01/01/22 at 1715, For 6 hours, MAXIMUM INITIAL INFUSION RATE = 2000 units/hr 01/07/2022 12:06 PM CDT 11.8 Units/kg/hr 14.8 mL/hr heparin 100 units/mL in sodium chloride New Bag 0.45% infusion 2-30 Units/kg/hr 126.2 kg (2.524-37.86 mL/hr, rounded to 2.5-37.8 mL/hr), Intravenous, Continuous, Starting on Adrienne 01/01/22 at 2310, FIRST 6 hour/DAILY Anti-Xa level is: Less than 0.06: Full IV bolus and INCREASE dose by 3 units/kg/hr. Check Anti-Xa level 6 hours after dose change. 0.06 - 0.29: Half IV bolu s and INCREASE dose by 1 unit/kg/hr. Chec k Anti-Xa level 6 hours after dose change . 0.3 - 0.7: NO DOSE CHANGE. Check Anti-Xa level 6 hours after dose change (if this is the second Anti-Xa within range, check DAILY in AM). 0.71 - 0.9: No bolus and DECREASE dose by 1 unit/kg/hr. Check Anti-Xa level 6 hours after dose change and follow algorithm below. 0.91 - 1.2: No bolus and HOLD INFUSION for 1 hour then RESTART infusion but DECREASE dose by 3 units/kg/hr. Check Anti-Xa level 6 hour s after dose change and follow algorithm below. Greater than 1.2: No bolus and HOLD infusion. Repeat Anti-Xa level STAT and follow algorithm below. REPEAT 6 hour or STAT Anti-Xa level is: Less than or equal to 0.9: Refer to algorithm above. 0.91-1.2: HOLD INFUSION and notify provider to develop plan as strictly adhering to above algorithm may not be appropriate for al l patients. Greater than 1.2: HOLD INFUSION and notify pharmacist who will contact provider with dosing recommendations. For infusions held more than 3 hours or lab draw delay mor e than 3 hours: Contact pharmacist for dosing recommendations. . 11.8 Units/kg/hr 14.8 mL/hr New Bag 01/06/2022 6:19 PM CDT 11.8 Units/kg/hr 14.8 mL/hr New Bag 01/06/2022 2:28 AM CDT 01/04/2022 5:42 PM CDT 1 Units Right Ar m insulin lispro (HumaLOG) injection 1-6 Given Units 1-6 Units, Subcutaneous, 4 times daily before meals and nightly, First dose on Wed12/31/21 at 2200, LEVEL 2 - Give in addition to scheduled mealtime insulin per table DO NOT GIVE for any 2 hours post meal fingerstick blood glucose checks. If pt NPO or on continuous enteral/parenteral nutrition - give wit h scheduled fingerstick blood glucose check - dose per table Glucose (mg/dL) Dose 0-120 0 units 121-150 0 units 151-200 1 unit 201-250 2 units 251-300 3 units 301-350 4 units 351-400 5 units >400 6 units Bedtime Admin Instructions ([facility] orders ONLY): If glucose level is less than 200, do not give any correction dose If glucose level is 200 or greater give correction dose according to sliding scale (see below) and check BG @ 0000 and 0300 LEVEL 2 - Bedtime Only Glucose (mg/dL) Dose 0-19 9 0 units 200-250 2 units 251-300 3 units 301-350 4 units 351-400 5 units >400 6 units 01/09/2022 5:44 AM CDT 25 mcg levothyroxine (SYNTHROID, LEVOTHROID) Given tablet 25 mcg 25 mcg, Oral, Daily, Indications: hypothyroidism, First dose on Wed01/02/22 at 0700, Take on empty stomach - early am with no other food or medication for 1 hour 25 mcg Given 01/08/2022 5:46 AM CDT 25 mcg Given 01/07/2022 6:00 AM CDT 12/31/2021 11:44 PM CDT 2 g 25 mL/hr magnesium sulfate IVPB 2 gram (premix) New Bag 2 g, Intravenous, at 25 mL/hr, Once, On Wed12/31/21 at 2300, For 1 dose magnesium sulfate IVPB 4 gram (premix) 4 g, Intravenous, at 25 mL/hr, As needed, aggressive electrolyte replacement, Starting on Wed12/31/21 at 1910, Replace in addition to any scheduled magnesium doses. Administer 4 grams over 4 hours for magnesium level less than or equal to 1.9 mg/dL. Repeat magnesium level in AM. Administer only if serum creatinine is less than 2 within the previous 48 hours and sustained urine output is greater than 20 mL/hr for 6 hours (if able to monitor). 01/09/2022 8:10 AM CDT 12.5 mg metoprolol succinate (TOPROL-XL) 24 hr Given tablet 12.5 mg 12.5 mg, Oral, Daily, First dose on Adrienne 01/08/22 at 1215, Hold if HR < 60 DO NOT CRUSH OR CHEW. 12.5 mg Given 01/08/2022 12:04 PM CDT miconazole nitrate (ALOE VESTA) 2 % ointment Topical, 3 times daily PRN, perineal or skin fold redness, Starting on Wed12/31/21 at 1910, Consult wound care if no improvement within 3 days. nitroglycerin (NITROSTAT) SL tablet 0.4 mg 0.4 mg, Sublingual, Every 5 min PRN, chest pain, Starting on Wed12/31/21 at 1910, For 3 doses, May repeat every 5 minutes for a total of 3 doses. Check B P prior to each dose. Discontinue use for SBP less than 90 mmHg. Notify physicia n if given. DO NOT CRUSH OR CHEW. 01/01/2022 10:34 AM CDT 3 mL perflutren lipid microspheres (DEFINITY) Given 2 mL/sodium chloride 0.9% 8 ml (10 ml total) 1-10 mL, Intravenous, Once in imaging, contrast, Starting on Wed01/01/22 at 1034, For 1 dose polyethylene glycol (GLYCOLAX) packet 1 7 g 17 g, Oral, Daily PRN, constipation, Starting on Wed12/31/21 at 1910, Hold these medications if patient has had loose stool or diarrhea within previous 24 hours. 01/03/2022 5:41 AM CDT 20 mEq potassium chloride (KLOR-CON) CR tablet Given 20 mEq 20 mEq, Oral, As needed, aggressive electrolyte replacement, Starting on 12/31/21 at 1910, Replace in addition to any scheduled potassium doses. Administer 20 mEq once for potassium level 3.6 to 3.9 mg/dL. Repeat potassiu m level in AM. Administer 20 mEq every hour x 2 doses (total dose = 40 mEq) fo r potassium level 3.1 to 3.5 mg/dL. Repea t potassium level in AM. Administer 20 mE q every hour x 3 doses (total dose = 60 mEq) for potassium level less than or equal to 3.0. Repeat potassium level 4 hours after last oral dose administered . Administer only if serum creatinine is less than 2 within the previous 48 hour s and sustained urine output is greater than 20 mL/hr for 6 hours (if able to monitor). DO NOT CRUSH OR CHEW. 20 mEq Given 01/02/2022 2:20 PM CDT 01/06/2022 11:59 PM CDT 5 mg prochlorperazine (COMPAZINE) injection 5 Given mg 5 mg, Intravenous, Every 6 hours PRN, nausea, vomiting, Starting on Wed 2 at 2332 01/06/2022 9:04 PM CDT 1 tablet sacubitriL-valsartan (ENTRESTO) 24-26 mg Given per tablet 1 tablet 1 tablet, Oral, 2 times daily, First dose on Wed12/31/21 at 2200 1 tablet Given 01/06/2022 8:55 AM CDT 1 tablet Given 01/05/2022 9:14 PM CDT 01/09/2022 8:10 AM CDT 1 tablet sacubitriL-valsartan (ENTRESTO) 49-51 mg Given per tablet 1 tablet 1 tablet, Oral, 2 times daily, First dose on Wed01/07/22 at 0900 1 tablet Given 01/08/2022 9:04 PM CDT 1 tablet Given 01/08/2022 9:21 AM CDT 01/02/2022 9:14 AM CDT 12.5 mg spironolactone (ALDACTONE) tablet 12.5 Given mg 12.5 mg, Oral, Daily, First dose on Wed01/02/22 at 0900 01/09/2022 8:10 AM CDT 0.4 mg tamsulosin (FLOMAX) 24 hr capsule 0.4 mg Given 0.4 mg, Oral, Daily, First dose on Wed12/31/21 at 2100, Swallow capsule whole 0.4 mg Given 01/08/2022 9:22 AM CDT 0.4 mg Given 01/07/2022 9:35 AM CDT 01/08/2022 9:07 PM CDT 5 mg zolpidem (AMBIEN) tablet 5 mg Given 5 mg, Oral, Nightly PRN, sleep, Startin g on Wed12/31/21 at 8, Do not administer in the presence of confusion or delerium 5 mg Given 01/07/2022 9:50 PM CDT 5 mg Given 01/06/2022 9:04 PM CDT documented in this encounter Active and Recently Administered Medications Times are shown in CDT. 01/08/2022 01/09/2022 Medication Order 01/07/2022 0811 (Given - Provider: Ashley Wade) amiodarone (CORDARONE) tablet 100 mg 100 mg, Oral, Daily, First dose (after last modification) on Wed01/09/22 at 090 0 0922 (Given - Provider: Ayana lanza RN) amiodarone (CORDARONE) tablet 200 mg 35 (Given - (CANCELED) Provider: Eugenia Ramirez 200 mg, Oral, Daily, First dose on Wed GENI Spencer) 12/31/21 at 2100 apixaban (ELIQUIS) tablet 5 mg 5 mg, Oral, 2 times daily, Indications: prevent thromboembolism in chronic atrial fibrillation, First dose on Wed01/09/22 at 2100 0922 (Given - Provider: Ayana lanza RN) 0811 (Given - Provider: Ashley Wade) aspirin EC tablet 81 mg 934 (Given - 81 mg, Oral, Daily, First dose on Wed Provider: Gabby Ramirez 12/31/21 at 2100, DO NOT CRUSH OR CHEW. GENI Spencer) 2103 (Given - Provider: Reyna davis RN) atorvastatin (LIPITOR) tablet 20 mg 2031 (Given - 20 mg, Oral, Nightly, First dose on Wed Provider: Margarito Bertrand 12/31/21 at 2100 GENI Wynne) 0922 (Given - Provider: Ayana lanza RN) 0810 (Given - Provider: Ashley Wade) empagliflozin (JARDIANCE) tablet 10 mg 0935 (Given - 10 mg, Oral, Daily, First dose on Adrienne Provider: Gabby Ramirez 01/01/22 at 1215, Hold if patient is NPO GENI Spencer ) or critically ill, Does the patient shelby t any criteria to HOLD this medication? N o 0922 (Given - Provider: Ayana lanza RN) 0811 (Given - Provider: Ashley Wade) eplerenone (INSPRA) tablet 25 mg 0935 (Given - 25 mg, Oral, Daily, First dose on Sun Provider: Gabby Ramirez 01/04/22 at 1445 GENI Spencer) 0924 (Given - Provider: Ayana lanza RN) 0815 (Not Given - Provider: Mercedes rosales RN - Reason: Patient/family refused) fluticasone propionate (FLONASE) 50 0936 (Given - mcg/actuation nasal spray 1 spray Provider: Eugenia Ramirez 1 spray, Each Nare, Daily, First dose on Ashley Spencer) Adrienne 01/01/22 at 0900 0922 (Given - Provider: Ayana lanza RN) 0810 (Given - Provider: Ashley Wade) furosemide (LASIX) tablet 40 mg 0939 (Given - 40 mg, Oral, Daily, First dose on Wed Provider: [facility] R 01/07/22 at 0900 GENI Spencer) 0730 (Not Given - Provider: Ayana Damian RN - Reason: NPO)1130 (Not Given - Provider: Ayana Damian RN - Reason: Order parameters not met)1700 (Not Given - Provider: Ayana Damian RN - Reason: Order parameters not met)2100 (Not Given - Provider: Reyna Garduno RN - Reason: Order parameters not met) 1054 (Hold this dose - Provider: Mercedes Martinez RN - Reason: Order parameters not met - Comment: not eating breakfast)1130 (Due - Provider: Sandy Dale RN) insulin lispro (HumaLOG) injection 1-6 0730 (Not Giv en - Units Provider: Eugenia Ramirez 1-6 Units, Subcutaneous, 4 times daily GENI Spencer - before meals and nightly, First dose on Reason: Orde r 12/31/21 at 2200, LEVEL 2 - Give in parameters no t addition to scheduled mealtime insulin met)1130 (Not Given per table DO NOT GIVE for any 2 hours - Provider: Randal garza post meal fingerstick blood glucose R GENI Spencer - checks. If pt NPO or on continuous Reason: Order enteral/parenteral nutrition - give with parameters not scheduled fingerstick blood glucose met)1700 (Not Gi kira check - dose per table Glucose (mg/dL) - Provider: Eugenia Dose 0-120 R GENI Spencer - 0 units 121-150 Reason: Order 0 units 151-200 parameters not 1 unit 201-250 2 met)2100 (Not Given units 251-300 3 - Provider: Margarito Bertrand units 301-350 4 GENI Wynne - Reason: units 351-400 5 Order paramet ers not units >400 6 met) units Bedtime Admin Instructions ([facility] orders ONLY): If glucose level is less than 200, do not give any correction dose If glucose level is 200 or greater give correction dose according to sliding scale (see below) and check BG @ 0000 and 0300 LEVEL 2 - Bedtime Only Glucose (mg/dL) Dose 0-19 9 0 units 200-250 2 units 251-300 3 units 301-350 4 units 351-400 5 units >400 6 units 0546 (Given - Provider: Jatin Wynne RN) 0544 (Given - Provider: Reyna davis RN)0729 (Hold this dose - Provider: Mercedes Martinez RN - Reason: Given previously) levothyroxine (SYNTHROID, LEVOTHROID) 0600 (Given - tablet 25 mcg Provider: Wes Givens 25 mcg, Oral, Daily, Indications: Thais Figueroa RN ) hypothyroidism, First dose on Wed01/02/22 at 0700, Take on empty stomach - early am with no other food or medication for 1 hour 1204 (Given - Provider: Ayana lanza RN) 0810 (Given - Provider: Ashley Wade) metoprolol succinate (TOPROL-XL) 24 hr tablet 12.5 mg 12.5 mg, Oral, Daily, First dose on Adrienne 01/08/22 at 1215, Hold if HR < 60 DO NOT CRUSH OR CHEW. 0921 (Given - Provider: Ayana lanza RN)2104 (Given - Provider: Reyna Garduno RN) 0810 (Given - Provider: Ashley Wade) sacubitriL-valsartan (ENTRESTO) 49-51 mg 0939 (Given - per tablet 1 tablet Provider: Eugenia Ramirez 1 tablet, Oral, 2 times daily, First GENI Spencer)20 32 dose on 01/07/22 at 0900 (Given - Provider: Jatin Wynne RN) 0922 (Given - Provider: Ayana lanza RN) 0810 (Given - Provider: Ashley Wade) tamsulosin (FLOMAX) 24 hr capsule 0.4 mg 0935 (Given - 0.4 mg, Oral, Daily, First dose on Wed Provider: Leticia Ramirez 12/31/21 at 2100, Swallow capsule whole GENI Spencer) 01/08/2022 01/09/2022 Medication Order 01/07/2022 heparin 100 units/mL in sodium chloride 1206 (New Ba g - 0.45% infusion (CANCELED) Provider: Eugenia Ramirez 2-30 Units/kg/hr GENI Spencer)1630 126.2 kg (2.524-37.86 mL/hr, rounded to (Stopped - P rovider: 2.5-37.8 mL/hr), Intravenous, Eugenia Spencer, Continuous, Starting on Adrienne 01/01/22 at RN) 2310, FIRST 6 hour/DAILY Anti-Xa level is: Less than 0.06: Full IV bolus and INCREASE dose by 3 units/kg/hr. Check Anti-Xa level 6 hours after dose change. 0.06 - 0.29: Half IV bolu s and INCREASE dose by 1 unit/kg/hr. Chec k Anti-Xa level 6 hours after dose change . 0.3 - 0.7: NO DOSE CHANGE. Check Anti-Xa level 6 hours after dose change (if this is the second Anti-Xa within range, check DAILY in AM). 0.71 - 0.9: No bolus and DECREASE dose by 1 unit/kg/hr. Check Anti-Xa level 6 hours after dose change and follow algorithm below. 0.91 - 1.2: No bolus and HOLD INFUSION for 1 hour then RESTART infusion but DECREASE dose by 3 units/kg/hr. Check Anti-Xa level 6 hour s after dose change and follow algorithm below. Greater than 1.2: No bolus and HOLD infusion. Repeat Anti-Xa level STAT and follow algorithm below. REPEAT 6 hour or STAT Anti-Xa level is: Less than or equal to 0.9: Refer to algorithm above. 0.91-1.2: HOLD INFUSION and notify provider to develop plan as strictly adhering to above algorithm may not be appropriate for al l patients. Greater than 1.2: HOLD INFUSION and notify pharmacist who will contact provider with dosing recommendations. For infusions held more than 3 hours or lab draw delay mor e than 3 hours: Contact pharmacist for dosing recommendations. . 01/08/2022 01/09/2022 Medication Order 01/07/2022 acetaminophen (TYLENOL) tablet 007-353 0793 (Given - mg (CANCELED) Provider: Jatin Bertrand 325-650 mg, Oral, Every 6 hours PRN, GENI Wynne) mild pain (pain score 1-3), fever greater than 101.5 F, Starting on Wed12/31/21 at 2141, Do not exceed 4 GM/DAY of acetaminophen. If 65 or older do no t exceed 3 GM/DAY. If chronic alcoholic d o not exceed 2 GM/DAY. 2103 (Given - Provider: Reyna davis, GENI) 0401 (Given - Provider: Reyna davis RN)0811 (Given - Provider: Mercedes Martinez RN) acetaminophen (TYLENOL) tablet 325-650 mg 325-650 mg, Oral, Every 4 hours PRN, mild pain (pain score 1-3), Starting on Adrienne 01/08/22 at 1529, For 24 hours, Do no t exceed 4 GM/DAY of acetaminophen. If 6 5 or older do not exceed 3 GM/DAY. If chronic alcoholic do not exceed 2 GM/DAY. aluminum-magnesium hydroxide-simethicon e (MAALOX PLUS) 400-400-40 mg/5 mL suspension 15 mL 15 mL, Oral, Every 4 hours PRN, indigestion, Starting on Wed12/31/21 at 1910, Avoid if estimated glomerular filtration rate (eGFR) is less than 20 mL/minute/1.73m2. 1350 (Given - Provider: Chuck Quiñones MD )1352 (Given - Provider: Chuck Quiñones MD) bupivacaine HCl (MARCAINE) 0.5 % (5 mg/mL) injection (CANCELED) As needed, Starting on Adrienne 01/08/22 at 1350, Intra-Procedure (Cath) 1328 (New Bag - Provider: Arlene villalobos, RN) ceFAZolin (ANCEF) injection (COMPLETED) Intra-op continuous PRN, Starting on Th u 01/08/22 at 1328, Intra-Procedure (Cath) 1440 (New Bag - Provider: Chuck Quiñones MD - Comment: Pocket flush) ceFAZolin (ANCEF) injection (COMPLETED) Intra-op continuous PRN, Starting on Th u 01/08/22 at 1440, Intra-Procedure (Cath) 2107 (Given - Provider: Reyna davis, GENI) cyclobenzaprine (FLEXERIL) tablet 10 mg 2150 (Given - 10 mg, Oral, 3 times daily PRN, muscle Provider: Himanshu Bertrand spasms, Indications: muscle spasm, GENI Wynne) Starting on Wed12/31/21 at 2030 dextrose (D50W) 50 % injection 25-50 mL(Linked Group 1) 25-50 mL, Intravenous, As needed, low blood sugar, Starting on Wed12/31/21 at 2141, Give if patient NPO and IV access already available. If no IV access give Glucagon SQ or IM in arm and turn patient on side. For blood glucose (BG): Less than 50 mg/dL: Give D50W 5 0 mL. Check BG every 15 minutes and repea t until greater than 80 mg/dL. Less than 70 mg/dL: Give D50W 25 mL. Check BG every 15 minutes and repeat until greater than 80 mg/dL. Less than 70 mg/dL and patient unconscious: Give D50 W 50 mL. Call physician for additional orders. Check BG every 15 minutes and repeat until greater than 80 mg/dL. Once blood glucose greater than 80 mg/dL, check BG in one hour. Call physician if less than 70 mg/dL. dextrose 10% (D10W) bolus 125-250 mL(Linked Group 1) 125-250 mL, Intravenous, at 500-1,000 mL/hr, As needed, low blood sugar, Starting on Wed12/31/21 at 2141, Give i f patient NPO and IV access already available. If no IV access give Glucago n SQ or IM in arm and turn patient on side. For blood glucose (BG): Less than 50 mg/dL: Give D10W 250 mL. Check BG every 15 minutes and repeat until greater than 80 mg/dL. Less than 70 mg/dL: Give D10W 125 mL. Check BG every 15 minutes and repeat until greater damien n 80 mg/dL. Less than 70 mg/dL and patient unconscious: Give D10W 250 mL. Call physician for additional orders. Check BG every 15 minutes and repeat until greater than 80 mg/dL. Once blood glucose greater than 80 mg/dL, check BG in one hour. Call physician if less than 70 mg/dL. docusate sodium (COLACE) capsule 100 mg 0935 (Given - 100 mg, Oral, 2 times daily PRN, stool Provider: Leticia santamaria, Starting on Wed12/31/21 at GENI Spencer) 1910, Swallow capsule whole 1337 (Given - Provider: Arlene Nicole RN)1346 (Given - Provider: Arlene Nicole RN)1356 (Given - Provider: Arlene Nicole RN) fentaNYL (SUBLIMAZE) injection (CANCELED) As needed, Starting on Adrienne 01/08/22 at 1337, Intra-Procedure (Cath) glucagon (GLUCAGEN) injection 1 mg(Linked Group 2) 1 mg, Intramuscular, As needed, low blood sugar, low blood sugar, Starting on Wed12/31/21 at 2141, Give if patient NPO and no IV access. May give IM or SQ in arm and turn patient on side. Reconstitute powder for injection by adding 1 mL of associate merchant-supplied sterile diluent or sterile water for injection to a vial containing 1 unit o f the drug, to provide solutions containing 1 mg of glucagon/mL. Shake vial gently to dissolve. glucagon (GLUCAGEN) injection 1 mg(Linked Group 2) 1 mg, Subcutaneous, As needed, low bloo d sugar, low blood sugar, Starting on Wed12/31/21 at 2141, Give if patient NPO an d no IV access. May give IM or SQ in arm and turn patient on side. Reconstitute powder for injection by adding 1 mL of associate merchant-supplied sterile diluent o r sterile water for injection to a vial containing 1 unit of the drug, to provide solutions containing 1 mg of glucagon/mL. Shake vial gently to dissolve. glucose chewable tablet 16-32 g 16-32 g, Oral, As needed, low blood sugar, Starting on Wed12/31/21 at 2141, Give food, drink, or glucose tablets to treat low blood glucose if patient able to eat. For blood glucose (BG): Less than 50 mg/dL: Give 30 g of carbohydrat e (32 g if using glucose tablets). Check BG every 15 minutes and repeat until greater than 80 mg/dL. Less than 70 mg/dL: Give 15 g of carbohydrate (16 g if using glucose tablets). Check BG every 15 minutes and repeat until greater than 80 mg/dL. Less than 70 mg/dL and patient unconscious: BG to be treated with D50W until greater than 80 mg/dL. Once BG greater than 80 mg/dL, give 30 g of carbohydrate (32 g if usin g glucose tablets) if patient awake and able to swallow. Once blood glucose greater than 80 mg/dL, check BG in one hour. Call physician if less than 70 mg/dL. 1350 (Given - Provider: Chuck Quiñones MD )1352 (Given - Provider: Chuck Quiñones MD) lidocaine (pf) (XYLOCAINE-MPF) 10 mg/mL (1 %) injection (CANCELED) As needed, Starting on Adrienne 01/08/22 at 1350, Intra-Procedure (Cath) magnesium sulfate IVPB 4 gram (premix) 4 g, Intravenous, at 25 mL/hr, As needed, aggressive electrolyte replacement, Starting on Wed12/31/21 at 1910, Replace in addition to any scheduled magnesium doses. Administer 4 grams over 4 hours for magnesium level less than or equal to 1.9 mg/dL. Repeat magnesium level in AM. Administer only if serum creatinine is less than 2 within the previous 48 hours and sustained urine output is greater than 20 mL/hr for 6 hours (if able to monitor). miconazole nitrate (ALOE VESTA) 2 % ointment Topical, 3 times daily PRN, perineal or skin fold redness, Starting on Wed12/31/21 at 1910, Consult wound care if no improvement within 3 days. 1337 (Given - Provider: Arlene Nicole RN)1346 (Given - Provider: Arlene Nicole, GENI)1356 (Given - Provider: Arlene Nicole RN) midazolam (VERSED) injection (CANCELED) As needed, Starting on Adrienne 01/08/22 at 1337, Intra-Procedure (Cath) nitroglycerin (NITROSTAT) SL tablet 0.4 mg 0.4 mg, Sublingual, Every 5 min PRN, chest pain, Starting on Wed12/31/21 at 1910, For 3 doses, May repeat every 5 minutes for a total of 3 doses. Check B P prior to each dose. Discontinue use for SBP less than 90 mmHg. Notify physicia n if given. DO NOT CRUSH OR CHEW. oxyCODONE-acetaminophen (PERCOCET) 5-32 5 mg 1-2 tablet 1-2 tablet, Oral, Every 6 hours PRN, moderate pain (pain score 4-6), Startin g on Adrienne 01/08/22 at 1529, For 24 hours, Do not exceed 4 GM/DAY of acetaminophen. If 65 or older do not exceed 3 GM/DAY. If chronic alcoholic do not exceed 2 GM/DAY. polyethylene glycol (GLYCOLAX) packet 1 7 g 17 g, Oral, Daily PRN, constipation, Starting on Wed12/31/21 at 1910, Hold these medications if patient has had loose stool or diarrhea within previous 24 hours. prochlorperazine (COMPAZINE) injection 5 mg 5 mg, Intravenous, Every 6 hours PRN, nausea, vomiting, Starting on Wed 2 at 2332 2107 (Given - Provider: Reyna davis RN) zolpidem (AMBIEN) tablet 5 mg 2150 (Given - 5 mg, Oral, Nightly PRN, sleep, Starting Provider: Randal Bertrand on Wed12/31/21 at 2028, Do stefanie Wynne, RN) administer in the presence of confusion or delerium Order Group 1: dextrose (D50W) 50 % injection 25-50 mL Jump to med 25-50 mL, Intravenous, As needed, low b lood sugar, Starting on Wed12/31/21 at 2141
Give if patient NPO and IV access already avail able. If no IV access give Glucagon SQ or IM in arm and turn patient on side. For blood g lucose (BG): Less than 50 mg/dL: Give D50W 50 mL. Check BG every 15 minutes and repeat un til greater than 80 mg/dL. Less than 70 mg/dL: Give D50W 25 mL. Check BG every 15 minutes a nd repeat until greater than 80 mg/dL. Less than 70 mg/dL and patient unconscious: Give D50 W 50 mL. Call physician for additional orders. Check BG every 15 minutes and repeat until greater damien n 80 mg/dL. Once blood glucose greater than 80 mg/dL, check BG in one hour. Call physi yang if less than 70 mg/dL.
Or dextrose 10% (D10W) bolus 125-250 mLJum p to med 125-250 mL, Intravenous, at 500-1,000 m L/hr, As needed, low blood sugar, Starting on Wed12/31/21 at 2141
Give if patient NPO and IV acce ss already available. If no IV access give Glucagon SQ or IM in arm and turn patient on side. & nbsp;For blood glucose (BG): Less than 50 mg/dL: Give D10W 250 mL. Check BG every 15 min utes and repeat until greater than 80 mg/dL. Less than 70 mg/dL: Give D10W 125 mL. Check BG ev erica 15 minutes and repeat until greater than 80 mg/dL. Less than 70 mg/dL and patient un conscious: Give D10W 250 mL. Call physician for additional orders. Check BG every 15 minutes and r epeat until greater than 80 mg/dL. Once blood glucose greater than 80 mg/dL, check BG in one hour. Call physician if less than 70 mg/dL.
Group 2: glucagon (GLUCAGEN) injection 1 mgJump to med 1 mg, Intramuscular, As needed, low blo od sugar, low blood sugar, Starting on Wed12/31/21 at 2141
Give if patient NPO and no IV a ccess. May give IM or SQ in arm and turn patient on side. Reconstitute powder for inje ction by adding 1 mL of associate merchant- supplied sterile diluent or sterile water for injection to a via l containing 1 unit of the drug, to provide solutions containing 1 mg of glucagon/mL. Shake v ial gently to dissolve.
Or glucagon (GLUCAGEN) injection 1 mgJump to med 1 mg, Subcutaneous, As needed, low bloo d sugar, low blood sugar, Starting on Wed12/31/21 at 2141
Give if patient NPO and no IV a ccess. May give IM or SQ in arm and turn patient on side. Reconstitute powder for inje ction by adding 1 mL of associate merchant- supplied sterile diluent or sterile water for injection to a via l containing 1 unit of the drug, to provide solutions containing 1 mg of glucagon/mL. Shake v ial gently to dissolve.
documented in this encounter Additional Health Concerns Onset Date Resolved Time Infection Last Indicated 12/31/2021 01/01/2022 12:36 AM CDT COVID-19 PUI 12/31/2021 12/31/2021 01/01/2022 8:36 AM CDT COVID-19 Confirmed 12/31/2021 Comment: Initially positive 09/29/21 per HD. No isolation needed per ID 01/05/2022 01/06/2022 6:39 AM CDT COVID-19 PUI 01/05/2022 documented as of this encounter
--- OUTSIDE RECORDS SUMMARY | 2022-01-09 16:29 | XMS REPORT | Encounter Summary ---
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 Name Role Phone PCP Unavailable Reason for Referral * Electrophysiology (Routine) - Authorized Diagnoses / Procedures Referred By Contact Referred To Conta ct Specialty Diagnoses ICD (implantable cardioverter-defibrillator), dual, in situ Procedures INPATIENT DUAL CHAMBER ICD CHECK Jose Carlos Herr MD [address] [place] [address] Referral ID Status Reason Start Date Expiration Visits Vi sits Date Requested Authorized [id number] Authorized 01/09/2022 07/12/2022 1 1 Encounter Details Care Team Description Date Type Department Tanya Giles RN ICD (implantable cardioverter-defibrilla tor), dual, in situ (Primary Dx) 01/09/2022 Orders Only [facility] [address] [place], [place] [id number] Social History Date Tobacco Use Types Packs/Day Years Used Never Smoker Smokeless Tobacco: Never Used Comments Alcohol Use Standard Drinks/Week Not Currently 0 (1 standard drink = 0.6 o z pure alcohol) Sex Assigned at Date Recorded Not on file documented as of this encounter Plan of Treatment Care Team Description Date Type Specialty 01/15/2022 Nurse Only Cardiology Jose Carlos Herr MD [address] [place], [place] [id number] 02/09/2022 Telephone Cardiology Vanessa Phillip FNP [address] [place] [address] 04/16/2022 Office Visit Cardiology 04/16/2022 Nurse Only Cardiology documented as of this encounter Results * INPATIENT DUAL CHAMBER ICD CHECK (01/09/2022 9:37 AM CDT) Modality Anatomical Region Laterality Other Impressions 01/09/2022 9:37 AM CDT Device Interrogation Report DATE/TIME: 01/09/22 0900 Indication for interrogation: Next Day Check Post ICD Implant Device Exploration Geologist/Model: Medtronic Evera ICD Battery Voltage: 3.08V Atrial [...] ICD (implantable cardioverter-defibrill ator), dual, in situ - Primary ICD (implantable cardioverter-defibrill ator), dual, in situ documented in this encounter
--- OUTSIDE RECORDS SUMMARY | 2022-01-09 16:30 | XMS REPORT | Encounter Summary ---
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 Name Role Phone PCP Unavailable Encounter Details Care Team Description Date Type Department Ponce Fonseca MD [address] [place] [address] Encounter for consultation 01/05/2022 Imaging [facility] Appointment Location Social History Date Tobacco Use Types Packs/Day Years Used Never Smoker Smokeless Tobacco: Never Used Comments Alcohol Use Standard Drinks/Week Not Currently 0 (1 standard drink = 0.6 o z pure alcohol) Sex Assigned at Date Recorded Not on file documented as of this encounter Plan of Treatment Care Team Description Date Type Specialty 01/15/2022 Nurse Only Cardiology Jose Carlos Herr MD [address] [place] [address] 02/09/2022 Telephone Cardiology Vanessa Phillip FNP [address] [place] [address] 04/16/2022 Office Visit Cardiology 04/16/2022 Nurse Only Cardiology documented as of this encounter Procedures Comments Procedure Name Priority Date/Time Associated Diag nosis CATH OUTSIDE IMAGES FOR Routine 01/05/[address] for PACS 10:38 AM CDT consultation documented in this encounter Results * Cath Outside images for PACS (01/05/2022 10:38 AM CDT) Anatomical Location / Laterality Collection Method / Volume Smitha ection Time Received Time Specimen (Source) Ponce Fonseca MD IMG OUTSIDE IMAGES City/State/ZIP Code Phone Number Performing Address Organization [facility] documented in this encounter Visit Diagnoses Diagnosis Encounter for consultation documented in this encounter
--- OUTSIDE RECORDS SUMMARY | 2022-01-09 16:30 | XMS REPORT | Encounter Summary ---
Author Author [facility] Organization [facility] Address Unknown Phone Unavailable Care Team Providers Care Features Editor Name Role Phone PCP Unavailable Reason for Visit * Auth/Cert Diagnoses / Procedures Referred By Contact Referred To Conta ct Specialty Diagnoses Systolic heart failure Cardiogenic shock (HCC) Referral ID Status Reason Start Date Expiration Visits Vi sits Date Requested Authorized [id number] 1 1 Encounter Details Care Team Description Date Type Department Anali Herr MD [address] [facility] [address] [place], [place] [id number] ICD INSERTION DUAL-MDT [facility] [address] [place] [address] Social History Date Tobacco Use Types Packs/Day Years Used Never Smoker Smokeless Tobacco: Never Used Comments Alcohol Use Standard Drinks/Week Not Currently 0 (1 standard drink = 0.6 o z pure alcohol) Sex Assigned at Date Recorded Not on file documented as of this encounter Last Filed Vital Signs Reading Time Taken Comments Vital Sign 108/66 01/08/2022 1:07 PM CDT Blood Pressure 94 01/08/2022 1:07 PM CDT Pulse 36.8 C (98.3 F) 01/08/2022 1:07 PM CDT Temperature 19 01/08/2022 1:07 PM CDT Respiratory Rate 100% 01/08/2022 1:07 PM CDT Oxygen Saturation - - Inhaled Oxygen Concentration 108.3 kg (238 lb 12.8 oz) 01/08/2022 5:44 AM CDT Weight 185.4 cm (6' 1") 12/31/2021 7:35 PM CDT Height 31.61 12/31/2021 7:35 PM CDT Body Mass Index documented in this encounter Discharge Instructions * Discharge Instructions* Je Torres NP - 01/09/2022 9:55 AM CDT [facility] Patient: Anabella Faye Date: 01/09/2022 [...] de vice. Regardless, you should always let [facility]/security know you have an implanted device and [...] is n ot scheduled, please call our veterans' coordinator at . Plan on having periodic [...] whether a transmission was received, please call [phone] For new device patients, three months after your device is implanted you will un dergo an in office device check along with a clinic visit with a nurse practitio nacho. termite inspector, plan to have a check in the [...] questions or concerns regarding your device, Call [phone] * Education* Reyna Chinchilla RN - 01/06/2022 10:20 AM CDT [facility] Heart Failure Education Note Name: Anabella Faye Date: 01/06/2022 Time: 5:21 PM Patient seen for Heart Failure education: Chart reviewed and patient interviewed . Met with patient discussed heart failure education. Patient is transferred h ere for advanced heart therapy evaluation. Patient admitted for LVAD evaluation . Patient has a history of hypertension, diabetes, COVID, prostate cancer, [place] had some VT on amnio drip patient placed on a dobutamine drip and was transferred to [facility] started Pr imacor therapy. LVAD eval. Patient had cardiogenic shock. Patient has not bee n transition to [place]. EP assess for possible SALESPERSON BOOKS device. Type of Heart Failure: Systolic and [...] while eating out. And the avoidance of Estonian and barbecue re staurants to the high [...] Chinchilla RN 01/06/2022 5:21 PM * Laurel Park RN - 01/05/2022 2:45 PM CDT Met with patient and . Discussed / demonstrated the following: LVAD function, parts, indications Lifestyle limitations of persons with VADs: no submersion in water, no magnet ic field exposure Daily care of equipment & exit site Care post-implant, including frequency of follow up at [facility] and all future hos pitalizations at [facility], follow in device clinic if applicable, and frequent monito ring of INR Caregiver support, emphasizing learning LVAD system, assisting with care, flo ly sterile dressing changes and Caregiver(s) being present at [facility] before & after implant to learn these skills (total of 2 - 3 hours + daily dressing changes while in hospital). Informed family that teaching occurs Mon-Fri during daytime hours. Explained the the VAD device is placed in HIS and that a driveline would conn ect the blood pump, exit his abdomen, and connect to a computer called a director merit system. The director merit system must be connected to a power source [...] reviews each case and the result for e meeting may be that the patient [...] Stated he is interested in attending at [facility] in [place], [place]. Given brochure from program. I will [...] PATIENT NAME: Anabella Faye DATE: 01/08/2022 CPI: [id number] AGE: 71 y.o. : 1950 Principal Problem: [...] says dc am Would follow up with [employer] urologist next week for voiding trial Chris Butts 01/08/2022 12:48 PM Kavin, F.A.C.S. * Princess Echeverria LMSW - 01/08/2022 12:37 PM CDT Received call from [place] rehabilitation aide/scheduler, December, stating they are able to acce pt pt for rehab as early as tomorrow. Confirmed in rounds that pt should be able to DC tomorrow following his ICD placement today. SW confirmed with December that they do not require COVID testing prior to admissio n, but they do require pt be admitted before 3:00 PM. SW notified HF YODIT. SW met with pt who remains agreeable to ARU placement tomorrow. He denies any co ncerns with his family transporting him and states his and friend will come get him tomorrow. Notified him of need for family to be to [facility] before 12:00 and he denied any concerns with this. SW then called pt's and discussed DC plan. She is agreeable to pt's DC joshua rrow and confirmed she and a family friend will come up to for transport. Pt' s requested SW call her in the morning following rounds to confirm DC so th ey can begin their commute to . SW agreed and will call pt's in the [facility] to finalize plans. Princess Echeverria, 01/08/2022 12:41 PM Ext. [phone] * Ori Colunga - 01/08/2022 10:38 AM CDT Spiritual Care Progress Note engaged in follow-up visit with Anabella. Anabella [...] and education he has recei alexia at [facility]. He looks forward to fishing, helping his with her small flower garden, and "relaxing in the shade." He also looks forward to connecting with his brother and his love for racing cars. listened reflectively, celeb rating with Anabella his dedication to focus in on his health, and his relief in no t needing an LVAD. offered prayer for continued health and gratitude f or the team at [facility]. Spiritual care remains available as needed/requested. Spiritual Care Assessment Spiritual Care Assessment REFERRAL METHOD: Epic Consult REFERRAL SOURCE: Associate Professor Of Criminal Justice Rounding PRESENT FOR ENCOUNTER: Patient SPIRITUAL DISTRESS: [...] Ori Colunga, 01/08/2022 10:38 AM Voalte Number: [phone] On-Call Pager Number: [phone] * Ponce Fonseca MD - 01/08/2022 6:46 [...] and LE edema. Although he lives in [place], [place],he was visiting his son [facility] and ended up being admitted at the [facility] on 12/03/2021. Echo showed LVEF 10%, right pleural effusion(transudative on thoracentesis)with CLAYTON. He was diuresed and started on dobutamine infusion which improved symptoms and resulte d in 10 pound weight loss. He then developed atrial fibrillationand was star edward on anticoagulation. Due to poor cardiac function,he was transferred to [facility] for ischemic work-up. LHC showed no significant di sease.During this hospitalization he went into sustained VT requiring electr ical cardioversion and initiation of amiodarone infusion and then PO. Attempte d to start afterload reduction with lisinopril and spironolactone which led to A KI and hyperkalemia. Given the continued requirement of inotrope and inability t o optimize GDMT, [facility]. Cabezas [...] Probable d/c tomorrow to rehab facility in [place] 2. Present for LVAD next week though would like to se if he improves with medic al therapy 3. ICD today (not SALESPERSON BOOKS per EP) 4. Add toprol 12.5 daily [...] 01/08/22 1043 01/07/22 0719 01/06/22 1020 01/05/22 02001/04/22 1141 01/04/22 0600 01/01/22 2342 01/01/22 1450 [...] last 7 days Lab Units 01/08/22 1043 01/07/2219 01/06/22 1020 01/05/22 02001/04/22 0600 SODIUM mEq/L 135* 135* 133* 133* 133* CARBON DIOXIDE mEq/L 28 26 29 26 27 BLOOD UREA NITROGEN mg/dL 9 8* 9 10 11 CREATININE mg/dL 1.10 0.80 1.10 1.00 1.10 Most Recent Result within the last 7 days Lab Units 01/08/22 1043 01/07/2271801/06/22 1020 01/05/22 0201 01/04/22 0600 POTASSIUM mEq/L 3.6 3.5 3.8 3.7 4.2 Most Recent Result within the last 7 days Lab Units 01/08/22 1043 01/07/22 0701/06/22 1020 01/05/22 0201 01/04/22 0600 GLUCOSE mg/dL 118* 120* 108* 117* 106* Most Recent Result within the last 7 days Lab Units 01/08/22 1043 01/07/22 0701/06/22 1020 ALKALINE PHOSPHATASE U/L 123 114 120 [...] Triceps 5 5 Wrist extension 5 5 Human Resources File Clerk 5 5 Iliopsoas 5 5 Quadriceps 5 [...] - 01/07/22 ADL Adaptive Equipment/Durable Medical Equipment Transportation Supervisor Grooming Minimal Assistance Grooming Type of Task [...] the performing provider), current inpatient medication s, field technical support consultant notes, and mission support specialist notes with pertainent findings noted with in [...] [facility] when medically ready for discharge. He prefers to go to an ARU [place], [place]. - Education provided about different levels of rehabilitation and appropriatenes s of decided upon disposition. - I have discussed the case with the following: another healthcare provider, soc meilssa work, and attending PM&R staff physician. - Continue therapy efforts with PT/OT. - We will continue to follow and make recommendations as needed as the patient's needs may change from the date and time of this follow up. Nicol Hutchins, MSN, MACHINE MOLDER, AGNP-C [facility] Physical Medicine [facility] Rehabilitation Pager [phone] * Debbie Workman LMSW - 01/07/2022 11:09 AM CDT CELI discussed pt in rounds and informed PMR has recommended acute rehab. CELI revi ewed PMR consult note from 01/02 which was part of the pt's LVAD evaluation. SW discussed with the PMR YODIT and she [...] agreeable for SW to rehab out to [facility] acute rehab in [place] and [facility] in [place] to determine if they will ac cept the pt's insurance and if they cover a portion of transportation. CELI notif ied the PMR YODIT that the pt prefers rehab out of town and she will evaluate the pt if needed but will not need a new consult. CELI spoke with Sheila from [facility] ([phone]) and confirmed they do not pr ovide transportation but do accept the pt's insurance. CELI called [facility] ([phone]) and left a voicemail with their l [...] of car. CELI faxed a referral to [facility] acute rehab at [phone]. Debbie Workman LMSW [phone] * Je KLAUDIA Torres - 01/07/2022 10:00 AM CDT Images from the original note were not included. Cardiac Electrophysiology Progress Note Hospital Day: 7 Chief complaint: VT Clinical summary: Mr. Faye is a 71-year-old male with a past medical history of hypertension, hyp erlipidemia, type 2 diabetes mellitus, COVID infection 09/27 and prostate cancer status post prostatectomy who was transferred from the [facility] in [place] on 12/15/2021 for advanced heart failure therapy evaluation. The patient had COVID-19 infection that did not require hospitalization in 2021. He then successfully underwent left knee arthroplasty in October 2021 . In the postoperative period, he was found to have worsening shortness of iraj th and lower extremity edema. He is from [facility] but was visiting [facility] at the end of November when he [...] been added and slowly titrated. TTE at [facility] with reduced LVEF and significant RV dilatation [...] Likely no benefit to be derived from SALESPERSON BOOKS implant - Recommend ICD implant for secondary [...] Case reviewed with primary cardiology team. Je Torres, RAF, CORPORATE DEVELOPMENT ANALYST-C OBJECTIVE: Vitals: Temp: [36.3 C (97.4 F)-36.7 [...] Oral Daily Infusion medications: heparin 11.8 Units/kg/hr (01/06/221818) Cabezas labs: Most Recent Result within the [...] LE edema. Although he live s in [place], [place],he was visiting his son in the [place] area and ended u p being admitted at the [facility] on 12/03/2021. Echo showed LVEF 10%, ri ght pleural effusion(transudative on thoracentesis)with CLAYTON. He was diurese d and started on dobutamine infusion which improved symptoms and resulted in 10 pound weight loss. He then developed atrial fibrillation and was started on ant icoagulation. Due to poor cardiac function, he was transferred to [facility] for ischemic work-up. LHC showed no significant disease. Marsha ng this hospitalization he went into sustained VT requiring electrical cardiover jonah and initiation of amiodarone infusion and then PO. Attempted to start aft erload reduction with lisinopril and spironolactone which led to CLAYTON and hyperka lemia. Given the continued requirement of inotrope and inability to optimize GDM T, he was transferred to [facility] for evaluation of advanced HF the [...] stated he would not likely benefit from SALESPERSON BOOKS since he inman s IVCD and less than 150 EP recommendations: Recommend secondary prevention ICD before discharge from hospital. I have had a shared decision making discussion with the patient and reviewed the alternativ es, risks and benefits of the procedure and he wishes to proceed. Doesn't meet criteria for SALESPERSON BOOKS at this time and is unlikely to [...] Lab Units 01/06/22 1020 01/05/22 0201 01/04/22 0601/03/2232101/02/22 2358 01/02/22 0601/01/22 0025 12/31/21 2044 SODIUM mEq/L 133* 133* 133* 129* -- 126* < > 121* CARBON DIOXIDE mEq/L 29 27 22 -- 23 < > 21 [...] days Lab Units 01/06/22 1020 01/05/22 0201 01/04/2259901/03/2232101/02/22 0627 POTASSIUM mEq/L 3.8 3.7 4.2 3.9 3.5 Most Recent Result within the last 7 days Lab Units 01/06/22 1020 01/05/22 02001/04/22 0601/03/2232101/02/22 0627 GLUCOSE mg/dL 108* 117* 106* 109* [...] 5. Mild aortic stenosis. 6. Mild MR. Qekz-or-ybbthlya TR. 7. Estimated central venous and PA [...] LE edema. Although he live s in [place], [place],he was visiting his son in the [place] area and ended u p being admitted at the [facility] on 12/03/2021. Echo showed LVEF 10%, ri ght pleural effusion(transudative on thoracentesis)with CLAYTON. He was diurese d and started on dobutamine infusion which improved symptoms and resulted in 10 pound weight loss. He then developed atrial fibrillation and was started on ant icoagulation. Due to poor cardiac function, he was transferred to [facility] for ischemic work-up. [facility] showed no significant disease. Durin g this hospitalization he went into sustained VT requiring electrical cardiovers ion and initiation of amiodarone infusion and then PO. Attempted to start afte rload reduction with lisinopril and spironolactone which led to CLAYTON and hyperkal emia. Given the continued requirement of inotrope and inability to optimize GDMT , he was transferred to [facility] for evaluation of advanced HF ther denzel. Cabezas events during this stay: -01/01: right [...] ventricular dilatation with severely reduced systolic function, kehy-dd-iwiuwtwa TR, full impression as note d below [...] 12/31. Reassessment of Covid PCR on 01/[address] Song, felt patient without active Covid infection. I have performed an independent review of the following: Telemetry, laboratory s foster. I have discussed the case with the following: Dr. Song. Treatment goals, progress and next steps, as above, were discussed and mutually agreed upon with the patient/family. PPE Statement: Tanya Saul, SUPERVISOR INDUSTRIAL ARTS EDUCATION used Yellow precautions (Level 1 mask worn over level 3 mask, and gloves). I, Tanya Saul, obtained the medical history and physical exam as documented edgar taylor. I asked Dr. oSng to assist in interpretation of laboratory tests and te lemetry and to help formulate the plan of care for treatment of acute on chronic combined systolic and diastolic heart failure in the setting of continued hyper volemia, paroxysmal atrial fibrillation on heparin infusion, left bundle branch block with consideration by EP for SALESPERSON BOOKS. I spent 25 minutes in direct patient ca re for Anabella Faye. Tanya Saul 01/06/2022 STAFF ATTESTATION I, Maxine Song personally interviewed and examined . Anabella Faye. [...] sacubitril/valsartan Planning for EP evaluation to consider SALESPERSON BOOKS given his IVCD which is of a left bun dle Pattern We discussed him briefly at our multidisciplinary meeting, there is hope for imp roved medical therapy possibly SALESPERSON BOOKS, his RV potentially will be problematic in te una of decision therapy LVAD, however is not thought to be prohibitive. Patient is somewhat frail and deconditioned he has been in the hospital for over 3 weeks including his stay in [place]. We have asked both PT and PMNR to see him for consideration of inpatient rehab. I have performed an independent review of the following: EKG Telemetry Patient has the following secondary diagnosis: hypothyroidism I have ordered the following for this patient: KAELYN elkins I spent 25 minutes retrieving medical data, interpreting results of diagnostic s tudies, providing recommendations and coordinating care for Anabella Faye. Curt atment goals, progress and next steps, as above, were discussed and mutually agr eed upon with the patient/family. Maxine Song 01/06/2022 OBJECTIVE: Vitals: BP: 109/68 Pulse: 88 [...] Daily Infusion medications: heparin 11.8 Units/kg/hr (01/06/22 3283) LVAD evaluation consultations: Infectious Disease Please obtain [...] to have 24-hour assistance upon returning ho tn in order for a safe transition. - [...] understanding that adequate transportation, and [facility] is needed during the post operative [...] of colonic polyps. -[place]. *Hepatobiliary screening *Elevated ALT *Mild hyperbilirubinemia 1.4 Suspect mild ALT elevation and hyperbilirubinemia secondary to congestive hepato diego. -Will await abdominal imaging and acute hepatitis panel results for any further recommendations. *Upper GI No red flag symptoms such as unintentional weight loss, dysphagia or persistent GERD that warrants upper endoscopy -[place] *Iron deficiency -Will need to see if [...] in September. [place] i nfection. He denies [...] RV dysfunction as well. Mild . R ight heart cath completed today, report pending. He [...] stenosis of the internal carotid arteries. Mild melissa cified plaque bilaterally. 2. Antegrade flow in [...] Mild aortic jeferson nosis. 6. Mild MR. Unud-rj-fjxevgdt TR. 7. Estimated central venous and PA [...] Oral Daily Continuous Infusions: heparin 11.8 Units/kg/hr (01/06/22 0228) PRN Meds:acetaminophen OR acetaminophen, aluminum-magnesium hydroxide-simeth icone, [...] may have been performed with modifications including crocktet ited or no face to face contact [...] can cer s/pprostatectomy who initially presented to [facility] with shortness of breath and LE swelling on 12[facility]15[facility] [place] [facility] [place]. In September 2021, he was infected with COVID-19 but did not require hospitalizati on.His symptoms included mild fatigue and loss of taste with no fever. He then successfully underwent left total knee arthroplasty in October 2021. In th e postoperative period he started to develop worsening shortness of breath and L E edema. Although he lives in [place], [place]za was visiting his son in [facility] and ended up being admitted at the [facility] on 12/03/2021. Ec ho showed LVEF 10%, right pleural effusion(transudative on thoracentesis)wit h CLAYTON. He was diuresed and started on dobutamine infusion which improved symptom s and resulted in 10 pound weight loss. He then developed AFIB and was started o n anticoagulation. Due to poor cardiac function he was transferred to [facility] for ischemic work-up. LHC showed no significant disease. Duri ng this hospitalization he went into sustained [...] recovered - he was visiting family in [facility] when his son told him to go to the ER to be checked out [facility] and they sent him to [facility] where they diagnosed him with HF Consults: [...] understanding that adequate transportation, and support from [facility] members is needed during the post operative [...] of colonic polyps. -[place]. *Hepatobiliary screening *Elevated ALT *Mild hyperbilirubinemia 1.4 Suspect mild ALT elevation and hyperbilirubinemia secondary to congestive hepato diego. -Will await abdominal imaging and acute hepatitis panel results for any further recommendations. *Upper GI No red flag symptoms such as unintentional weight loss, dysphagia or persistent GERD that warrants upper endoscopy -Will [place] *Iron deficiency -Will need to see if [...] in September. [place] i nfection. He denies [...] RV dysfunction as well. Mild . [facility], report pending. He [...] Negative Negative Hemoglobin Urine Negative Negative Specific Fellows, UA 1.005 - 1.030 1.006 PH Urine [...] 5. Mild aortic stenosis. 6. Mild MR. Ctmq-ve-wlivtavv TR. 7. Estimated central venous and PA [...] recommendation to consider stopping amiodarone - will fur er assess pre discharge 4. VAD eval [...] Has h/o prostate cancer, s/p prostatectomy around 2016 in [place]. O: Blood pressure 107/65, pulse 81, temperature [...] Hours: In: 358 [P.O.:358] Out: 825 [Urine:825] US Carotid Duplex bilat Result Date: 01/03/2022 1. Less than 50% stenosis of the internal carotid arteries. Mild calcified plaque bilaterally. 2. Antegrade flow in the vertebral arteries. READING SITE: [facility] Gen: GIANFRANCO HEENT: nc/at, eomi Resp: nonlabored A/P: Heart failure undergoing LVAD eval H/o gi physician s/p prostatectomy 2016; PSA less than 0.1. CT of abdomen [...] r s/p [place]ctomy [place] of corey ath and LE swelling on 12/15/2021 who is now transferred here from [facility] in [place] for advanced HF therapy evaluation. In September [...] LE e donnie. Although he lives in [place] he was visiting his son in [facility] and ended up being admitted at the [facility] on 12/03/2021. Echo [place] wed LVEF 10%, right pleural effusion (transudative on thoracentesis) with CLAYTON. H e was diuresed and started on dobutamine infusion which improved symptoms and re sulted in 10 pound weight loss. He then developed AFIB and was started on antico agulation. Due to poor cardiac function he was transferred to [facility] for ischemic work-up. LHC showed no [...] 5. Mild aortic stenosis. 6. Mild MR. Mbfh-zi-mxzhrmzq TR. 7. Estimated central venous and PA [...] titrate GDMT while evaluating for LVA D. Van out today and transition to PO diuretics tomorrow. TTF. #Acute Systolic/Diastolic HF and Cardiogenic Shock, SCAI C -NYHA class III, ACC AHA C -Echo findings as above; no significant valvular abnormalities; TAPSE 15; RV mod erately-severely dilated -Cr 1.4 > 1.3 > 1.0; C02 23 > 23; BUN 20 > 15 -[facility] records w/o o significant obstructive CAD [...] be a good candid ate for a SALESPERSON BOOKS therapy we will have EP see him prior to discharge ##pAF w [id number] = 4. Continue to monitor. On therapeutic [...] will be procured from his in the [facility] erin -Check lipid panel and A1c DVT Ppx: [...] Recent Labs 01/02/22 0627 01/02/22 2358 01/03/22 0322 01/04/22 0600 NA 126* -- 129* 133* K 3.5 -- 3.9 4.2 CO2 23 -- 22 27 BUN 15 -- 12 11 CREAT [...] 5:13 PM CDT Spiritual Care Progress Note Associate Professor Of Criminal Justice visited Anabella Faye to conduct an LVAD evaluation for Devora Wellnes yane Vallecillo grew up in [place], [place], moving to [place], [place] 28 years ago. 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 Anabella believes in God and follows the [employer] atilio. He understands that his heart is [...] Assessment REFERRAL METHOD: Epic Consult REFERRAL SOURCE: Physician PRESENT FOR ENCOUNTER: [...] Ori Colunga, 01/03/2022 5:14 PM Voalte Number: [phone] On-Call Pager Number: [phone] * Moshe Neely MD - 01/03/2022 4:47 PM CDT Prelminary cardiac MRI report. Final report to follow on Wednesday in [facility]. CONCLUSIONS: 1. Moderate left ventricular enlargement. LVEF [...] Normal caliber descending aorta without coarctation. Conventional sg5vnub arch anatomy. Normal caliber main p ulmonary [...] r s/p [place] shortness of corey ath and LE swelling on 12/15/2021 who is now transferred here from [facility] in [place] for advanced HF therapy evaluation. In September [...] LE e donnie. Although he lives in [place], [place] he was visiting his son in [facility] and ended up being admitted at the [facility] on 12/03/2021. Echo [place] wed LVEF 10%, right pleural effusion (transudative on thoracentesis) with CLAYTON. H e was diuresed and started on dobutamine infusion which improved symptoms and re sulted in 10 pound weight loss. He then developed AFIB and was started on antico agulation. Due to poor cardiac function he was transferred to [facility] for ischemic work-up. LHC showed no [...] 5. Mild aortic stenosis. 6. Mild MR. Apaw-qd-hblcyjjn TR. 7. Estimated central venous and PA [...] titrate GDMT while evaluating for LVA D. Van out today and transition to PO diuretics tomorrow. TTF. #Acute Systolic/Diastolic HF and Cardiogenic Shock, SCAI C -NYHA class III, ACC AHA C -Echo findings as above; no significant valvular abnormalities; TAPSE 15; RV mod erately-severely dilated -Cr 1.4 > 1.3 > 1.0; C02 23 > 23; BUN 20 > 15 -[facility] records w/o o significant obstructive CAD [...] be a good candid ate for a SALESPERSON BOOKS therapy we will have EP see him prior to discharge ##pAF w [id number] = 4. Continue to monitor. On therapeutic [...] will be procured from his in the [facility] -Check lipid panel and A1c DVT Ppx: [...] 126.2 kg (278 lb 3.5 oz) 12/31/21 193 128.8 kg (283 lb 14.4 oz) No [...] Units/kg/hr (01/03/22 1417) C[facility] labs: Recent Labs 12/31/214 01/01/22 0025 01/01/22 1450 01/01/22 2342 01/02/22 0627 01/02/22 1734 01/03/22 0322 WBC 6.71 6.28 -- -- 9.03 -- 7.54 HGB 11.0* 11.4* -- -- 11.4* -- 10.8* HCT 34* 35* -- -- 35* -- 34* PLT 215 219 -- 230 225 252 231 INR 1.3* -- 1.4* -- -- -- -- Recent Labs 12/31/214 01/01/22 0025 01/02/22 0627 01/02/22 2358 01/03/22 0322 [...] Goode NP - 01/02/2022 8:53 AM CDT [facility] GASTROINTESTINAL PROGRESS NOTE Subjective: No acute events overnight. Pt had heart cath and is currently in ICU for cardiac monitoring via [place]. Denies any abdominal pain, nausea or [...] Infusions: heparin 15.8 Units/kg/hr (01/02/22 0528) PRN Meds:.acetaminophen OR acetaminophen, acetaminophen OR acetaminophen [...] or edited the final report. READING SITE: Percolate XR Chest post line drain or airway placement Result Date: 01/01/2022 1. Support apparatus as described. No pneumothorax. 2. Similar to slightly worsening of pulmonary edema and dense basilar atelectasis. Superimposed pneumonia is not excluded. 3. Increased or redistributed right-sided layering pleural effusion with intrafissural fluid. Similar small left pleural effusion. READING SITE: [facility] Echo Complete with Doppler and Color Flow Result Date: 01/01/2022 1. Severe left ventricular dilatation. LVEDVI= 130 ml/m2. 2. Severely reduced left ventricular systolic function, with a calculated ejec tion fraction of 24%. 3. Global hypokinesis with some regional variability. 4. Severe right ventricular dilatation with severely reduced systolic function . 5. Mild aortic stenosis. 6. Mild MR. Bdyw-qs-ipmkmswb TR. 7. Estimated central venous and PA pressures are elevated. No previous study available for comparison. Dr. Justin Powers MD (Electronically Signed) Final Date: 01 January 2022 11:27 Physical Exam: General: awake, alert, NAD HENT: normocephalic, atraumatic, mucus membranes moist, right neck [place] Eyes: PERRL, anicteric Neuro: AOx3, ambulatory [...] r s/p [place] ath and LE swelling on 12/15/2021 who is now transferred here from [facility] in [place] for advanced HF therapy evaluation. In September [...] LE e donnie. Although he lives in [place], [place] he was visiting his son in [facility] and ended up being admitted at the [facility] on 12/03/2021. Echo [place] wed LVEF 10%, right pleural effusion (transudative on thoracentesis) with CLAYTON. H e was diuresed and started on dobutamine infusion which improved symptoms and re sulted in 10 pound weight loss. He then developed AFIB and was started on antico agulation. Due to poor cardiac function he was transferred to [facility] for ischemic work-up. LHC showed no [...] 5. Mild aortic stenosis. 6. Mild MR. Wliw-la-skhezuil TR. 7. Estimated central venous and PA [...] titrate GDMT while evaluating for LVA D. Van out today and transition to PO diuretics tomorrow. TTF. #Acute Systolic/Diastolic HF and Cardiogenic Shock, SCAI C -NYHA class III, ACC AHA C -Echo findings as above; no significant valvular abnormalities; TAPSE 15; RV mod erately-severely dilated -Cr 1.4 > 1.3 > 1.0; C02 23 > 23; BUN 20 > 15 -[facility] records w/o o significant obstructive CAD [...] 4 and Mag > 2 ##pAF w [id number] = 4. Continue to monitor. On therapeutic [...] will be procured from his in the [facility] -Check lipid panel and A1c # Prostate [...] and two other children who live in 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 DVT Ppx: Heparin infusion Patient seen by Agnes Unger, Cardiovascular Disease Fellow Contact with [employer] STAFF ATTESTATION: I, Maxine Song MD, have [...] Oral Daily Infusion medications: heparin 15.8 Units/kg/hr (01/02/22527) [facility]as labs: Recent Labs 12/31/21204301/01/22 0025 01/01/22 1450 01/01/22234101/02/22626 WBC 6.71 6.28 -- -- 9.03 HGB 11.0* 11.4* -- -- 11.4* HCT 34* 35* -- -- 35* PLT 215 219 -- 230 225 INR 1.3* -- 1.4* -- -- Recent Labs 12/31/21204301/01/225 01/02/22626 NA 121* 122* 126* K 4.2 4.3 [...] Rosales MD - 01/02/2022 7:56 AM CDT [facility] NEPHROLOGY FOLLOW-UP NOTE NAME: Anabella Faye CPI: [id number] AGE: 71 y.o. : 1950 ADMISSION DATE: 12/31/2021 PRIMARY CARE PROVIDER: No primary care provider on file. HISTORY OF PRESENT ILLNESS: 71 y.o. male with baseline creatinine of unknown presents to [facility] from [place] for LV AD evaluation. He has a past medical history of atrial fibrillation, prostate ca ncer s/p prostatectomy, DMT2, HLD, alcohol use, COVID infection in 09/2021, and r ecent diagnosis of HF. LHC revealed his HF etiology as non-ischemic. It [...] CATHETERIZATION; Surgeon: Mikel Goff MD; Locat ion: [facility] CV LAB; Service: Cardiology - Cardiac Intervention [...] PRN Agnes shelley MD 10 mg at 01/02/22 0004 dextrose (D50W) 50 % injection 25-50 mL [...] reviewed ASSESSMENT/PLAN: 71 y.o. male presents to [facility] for LVAD evaluation. 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 Pending additional studies not yet resuled, no nephrology contraindication to LVAD. No new recommendations, we will sign off. Thank you for allowing us to participate in this patient's care. Electronically signed by Ginette Langston MD, FASN, FACP 01/02/2022 5:23 PM documented in this encounter H&P Notes * Mikel Goff MD - 12/31/2021 7:53 PM CDT Images from the original note were not included. [facility] Comprehensive Initial Note Date: 01/01/2022 Established [facility] patient: No PCP: No primary care provider on file. Chief complaint: SOB Note generated by: Mikel Goff HPI: Mr. Faye is a 71-year-old male with hypertension, hyperlipidemia, type 2 diabet es mellitus, COVID-19 infection in 09/2021 (not hospitalized), and prostate cance r s/p prostate[place] of corey ath and LE swelling on 12/15/2021 who is now transferred here from [facility] in [place] for advanced HF therapy evaluation In September [...] LE e donnie. Although he lives in [place], [place] he was visiting his son in [facility] and ended up being admitted at the [facility] on 12/03/2021. Echo [place] wed LVEF 10%, right pleural effusion (transudative on thoracentesis) with CLAYTON. H e was diuresed and started on dobutamine infusion which improved symptoms and re sulted in 10 pound weight loss. He then developed A. fib and was started on anti coagulation. Due to poor cardiac function he was transferred to [facility], operated by [facility] for ischemic work-up. [...] reduced to about 6 pack a w nooksack. No significant family history of cardiac disease except for his father who had a IL in his 70s. Since his COVID infection [...] or edited the final report. READING SITE: [facility] Echo Complete with Doppler and Color Flow Result Date: 01/01/2022 1. Severe left ventricular dilatation. LVEDVI= 130 ml/m2. 2. Severely reduced left ventricular systolic function, with a calculated ejec tion fraction of 24%. 3. Global hypokinesis with some regional variability. 4. Severe right ventricular dilatation with severely reduced systolic function . 5. Mild aortic stenosis. 6. Mild MR. Yzfa-pl-heeuqsfr TR. 7. Estimated central venous and PA pressures are elevated. No previous study available for comparison. Dr. Justin Powers MD (Electronically Signed) Final Date: 01 January 2022 11:27 EKG: Atrial Fibrillation at 78 bpm Telemetry: Atrial fibrillation with controlled ventricular response Most Recent Result within the last 7 days Lab Units 01/01/225 12/31/212043 WBC TH/uL 6.28 6.71 HEMOGLOBIN g/dL 11.4* 11.0* HEMATOCRIT % 35* 34* PLATELET COUNT Th/uL 219 215 INR -- 1.3* Recent Labs 12/31/21204301/01/22 0025 NA 121* 122* CO2 21 23 BUN 18 20 CREAT 1.40* | 1.40* 1.30 MG 1.60 | 1.60 -- Most Recent Result within the last 7 days Lab Units 01/01/225 12/31/212043 POTASSIUM mEq/L 4.3 4.2 Most Recent Result within the last 7 days Lab Units 01/01/22 0025 12/31/212043 GLUCOSE mg/dL 111* 111* Most Recent Result within the last 7 days Lab Units 01/01/22 0025 12/31/212043 ALKALINE PHOSPHATASE U/L 115 111 PROTEIN TOTAL SERUM g/dL 6.0 6.2 ALBUMIN g/dL 3.7 3.6 ALANINE AMINOTRANSFERASE U/L 76* 77* ASPARTATE AMINOTRANSFERASE U/L 18 20 BNP Date/Time Value Ref Range Status 12/31/20212043 933 (H) 0 - 100 pg/mL Final No results found for: YPRVCMRLSX4F, XOWAQJVGRW0Y, QDBBEDJOD6FG, XRQMRHZHOZ9S, TR ISTECVB4HT Lab Results Component Value Date HGBA1C 6.7 (H) 12/31/2021 Coronary angiogram: Date: 12/22/2021 Reported to be nonobstructive disease. However, actual report and images are no t available from outside hospital ([facility]) PHYSICAL EXAM: Temp: [36.3 C (97.4 F)-36.6 C (97.8 F)] 36.6 C (97.8 F) Pulse: [76-83] 83 Resp: [16-22] 22 BP: (110-137)/(68-77) 137/68 VILLA Risk Index for in-hospital mortality Age: [...] severe aortic stenosis -Cardiomyopathy type: Nonischemic with LHC report from outside hospital showing nonobstructive disease [...] with no strips) # Persistent atrial fibrillation ([id number] 4) -Rate control: Continue digoxin 250 mcg [...] will be procured from his in the [facility] -Check lipid panel and A1c # Prostate [...] and 2 other children who live in [facility] -No history of tobacco or any other recreational drug abuse -Currently no issues with alcohol abuse -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 He was found to have EF 10% by echo. He had thoracentesis for R pleural effusion. He had CLAYTON, and was diuresed with dobutamine for inotropic support. He developed AFib and was placed on AC. HE was transferred to [facility], where tl ogram showed non-obstructive CAD. [...] 55/30 (38), PCWP 25, Kaela CO/CI (on LEATHER GRAINER 5) 6.0/2.4 , PVR 2.2 HILL Echo 01/01 1. Severe left ventricular dilatation. LVEDVI= 130 ml/m2. 2. Severely reduced left ventricular systolic function, with a calculated ejecti on fraction of 24%. 3. Global hypokinesis with some regional variability. 4. Severe right ventricular dilatation with severely reduced systolic function. 5. Mild aortic stenosis. 6. Mild MR. Fdkg-ot-mojqnqwa TR. 7. Estimated central venous and PA [...] can likely stop (no h/o CVA or IL) - SSI for DM2/glucose control. Would be [...] from the original note were not included. [facility] Electrophysiology Consult Date: 01/06/2022 Established [facility] patient: No PCP: No primary care provider on file. Case discussed with Requesting Physician : Yes Requesting Physician: Dr. Fonseca Reason for consult: VT, possible SALESPERSON BOOKS Note generated by: Esthela Oakes DO HPI: Mr. Faye is a 71-year-old man with a history of hypertension, hyperlipidem ia, type 2 diabetes mellitus, COVID infection 09/27 and prostate cancer status po st prostatectomy who was transferred from the [facility] in [facility] on 12/15/2021 for advanced heart failure therapy evaluation. The patient had COVID-19 infection that did not require hospitalization in 2021. He then successfully underwent left knee arthroplasty in October 2021 . In the postoperative period he was found to have worsening shortness of breat h and lower extremity edema. He is from [facility] but was visiting [facility] at the end of November when he [...] been added and slowly titrated. TTE at [facility] with reduced LV EF and significant RV [...] CATHETERIZATION; Surgeon: Mikel Goff MD; Locat ion: [facility] CV LAB; Service: Cardiology - Cardiac Intervention [...] other findings please see above. READING SITE: [facility] Chest wo contrast Result Date: 01/02/2022 1. Moderate right and small left pleural effusions with associated right worse than left bibasilar relaxation atelectases. 2. No discrete focal consolidation or concerning pulmonary nodule or mass. 3. Coronary and aortic atherosclerosis. Scattered calcifications of the aortic valve leaflets for which some degree of aortic stenosis is suspected. READING SITE: [facility] Abdomen complete Result Date: 01/01/2022 Gallbladder wall thickening with no sonographic Solorzano sign and no gallstones identified. Cannot exclude acalculous cholecystitis. READING SITE: [facility] THIS DOCUMENT HAS BEEN ELECTRONICALLY SIGNED BY RAVEN CEDENO MD Carotid Duplex bilat Result Date: 01/03/2022 1. Less than 50% stenosis of the internal carotid arteries. Mild calcified plaque bilaterally. 2. Antegrade flow in the vertebral arteries. READING SITE: Percolate XR Chest single view frontal Result Date: 01/01/2022 1. Right greater than left perihilar and bibasilar heterogeneous opacities, likely representing moderate interstitial pulmonary edema. Superimposed infection or aspiration is not excluded. 2. Small right greater than left pleural effusions. 3. Cardiomegaly. ATTESTATION STATEMENT: The Staff Radiologist has personally reviewed the images and dictated, reviewed, or edited the final report. READING SITE: Percolate XR Chest post line drain or airway placement Result Date: 01/01/2022 1. Support apparatus as described. No pneumothorax. 2. Similar to slightly worsening of pulmonary edema and dense basilar atelectasis. Superimposed pneumonia is not excluded. 3. Increased or redistributed right-sided layering pleural effusion with intrafissural fluid. Similar small left pleural effusion. READING SITE: [facility] [employer] [facility] Echo Complete with Doppler and Color Flow Result Date: 01/01/2022 1. Severe left ventricular dilatation. LVEDVI= 130 ml/m2. 2. Severely reduced left ventricular systolic function, with a calculated ejec tion fraction of 24%. 3. Global hypokinesis with some regional variability. 4. Severe right ventricular dilatation with severely reduced systolic function . 5. Mild aortic stenosis. 6. Mild MR. Cxuw-tq-gxqjzhae TR. 7. Estimated central venous and PA [...] found for: BNP No results found for: WCTMCKIBDP4A, ZZLVYTGZEI0Y, MUOPQPPLZ4PZ, DUPAUXKQCW7E, TR OKZUFXM7GD Lab Results Component Value Date HGBA1C 6.9 [...] 5. Mild aortic stenosis. 6. Mild MR. Jcjo-gb-mcaektfl TR. 7. Estimated central venous and PA [...] the research team. 3. Paroxysmal atrial fibrillation -XPCGY6YMTI of 4 (age, HF, HTN, DMII). Agree [...] wishes to proceed. Doesn't meet criteria for SALESPERSON BOOKS at this time and is unlikely to benefit. Agree wi parris amiodarone given HF and sustained VT. Anali Herr MD I have performed an independent review of the following: EKG Telemetry CXR I have discussed the case with the following: Another healthcare provider Treatment goals, progress and next steps, as above, were discussed and mutually agreed upon with the patient/family. * Princess Echeverria LMSW - 01/02/2022 3:23 PM CDTAssociated Order(s): CONSULT TO TRANSPLANT SOCIAL WORK FAUSTO met with pt to complete psychosocial assessment [...] any concerns with this req uirement. The [employer] Integrated Psychosocial Assessment Tool for Transplant (SIPAT) [...] as pt lives a [place] hours from [facility]. Full note to follow. Princess Echeverria, 01/02/2022 3:34 PM Ext. [phone] * Princess Echeverria LMSW - 01/02/2022 3:11 PM CDTAssociated Order(s): CONSULT TO CARE PROGRESSION; CONSULT TO CARE PROGRESSION; CONSULT TO CARE PROGRESSION; CONSULT TO CARE PROGRESSION; CONSULT TO CARE PROGRESSION Consults received for DC planning and medication benefit check. GENI CRUZ completed benefit check for Jardiance and Entresto through [facility]. Each medication tiesha l cost $11. SW called the [facility] to confirm as pt states he usually does not have a copay. Per pharmacy, Jardiance usually requires a PA, however cost will not exceed $11 for medications. She recommended [facility] in the event they are needed. SW to notify HF YODIT. Princess Echeverria, 01/02/2022 3:16 PM Ext. [phone] * Aditi Copeland MD - 01/02/2022 12:22 PM CDTAssociated Order(s): IP CONSULT TO INFECTIOUS DISEASE [facility] INFECTIOUS DISEASE CONSULTATION NAME: Anabella Faye AGE: [...] injection 10,000 Units 10,000 Units Intrave nous PRHaroldo Unger MD heparin 100 units/mL in sodium [...] CATHETERIZATION; Surgeon: Mikel Goff MD; Locat ion: [facility] CV LAB; Service: Cardiology - Cardiac Intervention [...] Currently Sexual activity: Not Currently Born in [place], lived in [facility], no travel outside [facility], no known exposure to TB, does not [...] Clean Catch - RAINBOW DRAW HOLD SPECIMENS [place] Draw/Extra Tube Hold Specimen Extra Urine Specimen in [place] Tube Collection Time: 01/01/22 10:57 PM Specimen: Urine Clean Catch - RAINBOW DRAW HOLD SPECIMENS [place] Draw/Extra Tube Hold Specimen CULTURE SUMMARY: Not [...] a h/o prostate cancer and prostatectomy around 2017 in [place]. Does not leak urine at home. Feels he voids fine. Denies hematuria. PMH: Past Medical History: Diagnosis Date Atrial fibrillation (HCC) Cancer (HCC) Cardiomyopathy (HCC) CHF (congestive heart failure) (HCC) Diabetes mellitus (HCC) PSH: Past Surgical History: Procedure Laterality Date CATHETERIZATION, HEART, RIGHT N/A 01/01/2022 Procedure: RIGHT HEART CATHETERIZATION; Surgeon: Mikel Goff MD; Locat ion: [facility] CV LAB; Service: Cardiology - Cardiac Intervention [...] OR [Nov] acetaminophen, [Nov] ac etaminophen OR [Nov] acetaminophen, [Nov] aluminum-magnesium hydro xide-simethicone, [Nov] cyclobenzaprine, [Nov] dextrose 50% OR [] dextrose 10%, [Nov] docusate sodium, [Nov] glucagon OR [] glucagon, [Nov] glucose, [Nov] heparin (porcine) OR [Nov old] heparin (porcine), [Nov] magnesium sulfate, [Nov] miconazole nitr ate, [Nov] nitroglycerin, [Nov] polyethylene glycol, [Nov] potass ium chloride OR [Nov] potassium bicarb-citric acid OR [Nov] po tassium chloride in water, [Nov] potassium chloride OR [Nov] potas sium bicarb-citric acid OR [Nov] potassium chloride in water, [Nov ] zolpidem ALLERGIES: has No Known Allergies. [...] 01/01/2022 10:57 PM Negative Negative Final Specific Fellows Urine Date/Time Value Ref Range Status 01/01/2022 [...] or edited the final report. READING SITE: [facility] XR Chest post line drain or airway placement Result Date: 01/01/2022 1. Support apparatus as described. No pneumothorax. 2. Similar to slightly worsening of pulmonary edema and dense basilar atelectasis. Superimposed pneumonia is not excluded. 3. Increased or redistributed right-sided layering pleural effusion with intrafissural fluid. Similar small left pleural effusion. READING SITE: [facility] Echo Complete with Doppler and Color Flow Result Date: 01/01/2022 1. Severe left ventricular dilatation. LVEDVI= 130 ml/m2. 2. Severely reduced left ventricular systolic function, with a calculated ejec tion fraction of 24%. 3. Global hypokinesis with some regional variability. 4. Severe right ventricular dilatation with severely reduced systolic function . 5. Mild aortic stenosis. 6. Mild MR. Envt-kw-pnoqybqv TR. 7. Estimated central venous and PA pressures are elevated. No previous study available for comparison. Dr. Justin Powers MD (Electronically Signed) Final Date: 01 January 2022 11:27 IMPRESSION: 1. Patient with heart failure undergoing LVAD evaluation. 2. H/o prostate cancer s/p prostatectomy 2017. PSA is less than <0.1. PLAN: Will check CT abd as renal US did not visualize L kidney, otherwise no co ntraindications as this time from our standpoint. Date: January 02, 2022 Time: 10:56 AM * Nicol Hutchins APRN - 01/02/2022 10:30 AM CDTAssociated Order(s): IP CONSULT TO PHYSICAL MEDICINE AND REHABILITATION [facility] 01/02/2022 Patient Identification Patient's Name: Anabella Faye [...] and CLAYTON. He was referr ed to [facility] for advanced heart failure therapy evaluation includin [...] friends are supportive. He wi ll have 24/7 supervision and assistance as needed. 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 5/5 in bilateral lower extremiti es with [...] the performing provider), current inpatient medication s, field technical support consultant notes, and mission support specialist notes with pertainent findings noted with in [...] consultation. Hopefully these efforts have been helpful. Pleedgar se feel free to contact us with any questions or concerns. Nicol Hutchins, MSN, MACHINE MOLDER, AGNP-C Physical Medicine and Rehabilitation [facility] Pager [phone] * Magdaleno Hallman RN - 01/02/2022 7:24 AM CDTAssociated Order(s): IP CONSULT TO HOSPICE AND PALLIATIVE MEDICINE [facility] PALLIATIVE MEDICINE SERVICE INITIAL CONSULTATION/ASSESSMENT PATIENT NAME: Anabella Faye ADMISSION DATE: 12/31/2021 CONSULT DATE: 01/02/2022 ROOM: [place] [id number] CPI: [id number] AGE: 71 y.o. : 1950 PRIMARY CARE PROVIDER: No primary care provider on file. ATTENDING PHYSICIAN: Maxine Song MD REFERRING PHYSICIAN: Dr. Song CODE STATUS: [...] and CLAYTON. 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 Patient lists his support and living situation as living with his spouse, and th at he has two children who are a big support. Mr. Faye does not have ACP documents on file with [facility]. P rovided patient with ACP documents, and explained the importance in completing t o designate one or more people as their Durable Power of Person Investigator (DPOA). Encour aged the patient to read [...] understanding that adequate transportation, and support from [facility] is needed during the post operative [...] us wi th any further needs. Magdaleno GUTIERREZ RN, PN Palliative Medicine Coordinator or Voalte Messenger * Dennis Saul MD - 01/01/2022 5:16 PM CDTAssociated Order(s): PSYCHIATRY CONSULT Attending Advisory Services Associate Physician Psychiatry Evaluation ID: Anabella Faye is a 71 y.o. male who lives [address] [place] [id number]. CC: LVAD History of Present Illness: Patient [...] mg by mouth. 08/18/21 Yes Historica l Provider, terazosin (HYTRIN) 2 MG capsule 1 capsule at bedtime 01/30/21 Yes Historical Pro vider, zolpidem (AMBIEN CR) 12.5 MG CR tablet 1 tablet at bedtime as needed 10/23/21 Ye s Historical Provider, zolpidem (AMBIEN) 10 mg tablet 1 tablet at bedtime as needed 09/29/21 Yes Histor ical Provider, lisinopriL (PRINIVIL,ZESTRIL) 10 MG tablet Take 10 mg by mouth daily. Histori melissa Provider, simvastatin (ZOCOR) 10 MG tablet Take 10 mg by mouth. Historical Provider, tramadoL (ULTRAM) 50 mg tablet Take 100 mg by mouth every 6 (six) hours as luz marina moyer Historical Provider, Current Medications: amiodarone 200 mg [...] son Education level: HS Employment Status: Has [employer] Legal Issues: Denies : [employer] for 3 years Latter-Day preference: Anglican Substance use: Denies tobacco, alcohol, or drug [...] and judgment are f air. Diagnosis: No [place] I diagnosis Impression: Anabella Faye is a [...] AM CDTAssociated Order(s): IP CONSULT TO NEPHROLOGY [facility] NEPHROLOGY CONSULT NOTE NAME: Anabella Faye CPI: [id number] AGE: 71 y.o. : 1950 ADMISSION DATE: 12/31/2021 PRIMARY CARE PROVIDER: No primary care provider on file. HISTORY OF PRESENT ILLNESS: 71 y.o. male with baseline creatinine of unknown presents to [facility] from OSH for LV AD evaluation. He has a past medical history of atrial fibrillation, prostate ca ncer s/p prostatectomy, DMT2, HLD, alcohol use, COVID infection in 09/2021, and r ecent diagnosis of HF. [facility] revealed his HF etiology as non-ischemic. It [...] tablet 10 mg 10 mg Oral Daily Agnse Unger MD finasteride (PROSCAR) tablet 5 mg [...] reviewed ASSESSMENT/PLAN: 71 y.o. male presents to [facility] for LVAD evaluation. Nephrology consulted for LVAD [...] medications. Electronically signed by Ginette Langston MD, FASHaroldo, FACP 01/01/2022 2:36 PM * Tani Brady MD - 01/01/2022 11:07 AM CDTAssociated Order(s): IP CONSULT TO PULMONOLOGY PRIMARY CARE PROVIDER: No primary care provider on file. REFERRING PROVIDER: Dr. Ramos REASON FOR CONSULTATION: LVAD pulmonary evaluation CONSULTING SERVICE: Dr. Brady, Pulmonary DATE OF SERVICE: 01/01/2022 History of Present [...] that he had to be admitted to [facility] on 12/03 with dyspnea, LE edema and EF of 10%. He was then transferred to [facility] for a heart cath which showed no ob structive CAD. He was subsequently transferred to [facility] for advanced HF therapies. ROS: He states [...] g 17 g Oral Daily PRN Susan pickett MD potassium chloride (KLOR-CON) CR tablet 20 mEq 20 mEq Oral PRN Susan pickett MD Or potassium bicarb-citric acid (EFFER-K) effervescent tablet 20 mEq 20 mEq Or al PRN Susan Caceres MD Or potassium chloride 10 mEq in 50 mL IVPB 20 mEq Intravenous PRN Susan pickett MD potassium chloride (KLOR-CON) CR tablet 20 mEq 20 mEq Oral PRN Susan pickett MD Or potassium bicarb-citric acid (EFFER-K) effervescent [...] 5. Mild aortic stenosis. 6. Mild MR. Bhaw-il-scuxgkys TR. 7. Estimated central venous and PA [...] in this patient's care. Edson Brady MD [facility] Interventional Pulmonology, Pulmonology, and Critical Care [facility] * Hamzah Goode NP - 01/01/2022 10:33 AM CDTAssociated Order(s): IP CONSULT TO GASTROENTEROLOGY [facility] GASTROINTESTINAL CONSULT NOTE Patient: Anabella Faye Age: [...] g 17 g Oral Daily PRN Susan pickett MD potassium chloride (KLOR-CON) CR tablet 20 mEq 20 mEq Oral PRN Susan pickett MD Or potassium bicarb-citric acid (EFFER-K) effervescent tablet 20 mEq 20 mEq Or al PRN Susan Caceres MD Or potassium chloride 10 mEq in 50 mL IVPB 20 mEq Intravenous PRN Susan pickett MD potassium chloride (KLOR-CON) CR tablet 20 mEq 20 mEq Oral PRN Susan pickett MD Or potassium bicarb-citric acid (EFFER-K) effervescent [...] Oral Daily Continuous Infusions: DOButamine 5 mcg/kg/min (12/31/21 2202) heparin Stopped (01/01/22 1003) PRN Meds:.acetaminophen OR [...] or edited the final report. READING SITE: [facility] PRIOR ENDOSCOPY RESULTS: Reported normal EGD on colonoscopy approximately 2 years ago performed at the [facility] in [place] ASSESSMENT/PLAN: Mr. Anabella Faye is a pleasant 71-year-old male currently admitted with acute on chronic heart failure and LVAD evaluation. GI consult as part of this evalua tion *Colorectal screening -Reports colonoscopy 2 years ago which was normal. No family history. No histo ry of colonic polyps. -Will request records from-the [place]. *Hepatobiliary screening *Elevated ALT *Mild hyperbilirubinemia 1.4 Suspect mild ALT elevation and hyperbilirubinemia secondary to congestive hepato diego. -Will await abdominal imaging and acute hepatitis panel results for any further recommendations. *Upper GI No red flag symptoms such as unintentional weight loss, dysphagia or persistent GERD that warrants upper endoscopy -Will request E[place] records [place] the [place] *Iron deficiency -Will need to see if [...] VOALTE Electronically signed by Hamzah Goode NP 01/01/2022 10:34 AM Associated attestation - Kike Guillen MD - 01/01/2022 4:49 PM CDT I reviewed and discussed the assessment and recommendations as detailed by [facility] Provider. I also reviewed relevant imaging and laboratory studies. I agree with the assessment, recommended evaluation/studies, and treatment plan as detailed. * Tanya Solorzano NP - 01/01/2022 10:02 AM CDTAssociated Order(s): IP CONSULT TO CARDIOVASCULAR SURGERY ([facility] ONLY) [facility] Cardiothoracic and Vascular E&M Date: 01/01/2022 Chief Complaint: Shortness of breath and edema PCP: No primary care provider on file. Requesting Physician: Dr. Song Reason for consult: LVAD evaluation HPI: Mr. Faye is a 71 year old male transferred from [facility] in [place] for advanced heart failure therapy evaluation. He resides in [place], [place]. PMH includes HTN, HLD, type II DM, hx COVID-19 infection in 09/2021, p rostate cancer s/p prostatectomy. He denies history of prior cardiac issues. 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 He has history of prior h eavy alcohol use, but not for quite some time, only occasional alcohol use at [facility]. He tested positive for COVID-19 in [...] He was vi siting his son in [place], [place] in mid November [facility]. He was admitted with heart failure. Echo [...] gtt. He wa s subsequently transferred to [facility] for ischemic evaluati on. He underwent left [...] to moderate TR. [facility] CTS has been asked [...] g 17 g Oral Daily PRN Susan pickett MD potassium chloride (KLOR-CON) CR tablet 20 mEq 20 mEq Oral PRN Susan pickett MD Or potassium bicarb-citric acid (EFFER-K) effervescent tablet 20 mEq 20 mEq Or al PRN Susan Caceres MD Or potassium chloride 10 mEq in 50 mL IVPB 20 mEq Intravenous PRN Susan pickett MD potassium chloride (KLOR-CON) CR tablet 20 mEq 20 mEq Oral PRN Susan pickett MD Or potassium bicarb-citric acid (EFFER-K) effervescent [...] 5. Mild aortic stenosis. 6. Mild MR. Rmzr-lo-xcebsgjm TR. 7. Estimated central venous and PA [...] i n [place]. [place] did require admission for pneumonia at [...] RV dysfunction as well. Mild . R ight heart cath completed today, report pending. He [...] AM CDTAssociated Order(s): IP CONSULT TO ENDOCRINOLOGY [facility] ENDOCRINOLOGY CONSULT NOTE Patient: Anabella Faye Age: [...] post prosta tectomy. He presented to an [facility] with shortness of breath and significan [...] PRN Susan Caceres MD 5,000 Units at 01/01/223 Or heparin (porcine) 1,000 unit/mL injection 10,000 Units 10,000 Units Intrave nous PRN Susan Caceres MD heparin 100 units/mL in sodium chloride 0.45% infusion 2-30 Units/kg/hr Int ravenous Continuous Susan Caceres MD 21.2 mL/hr at 01/01/229 16.5 Units/kg /hr at 01/01/22418 insulin lispro [...] g 17 g Oral Daily PRN Susan pickett MD potassium chloride (KLOR-CON) CR tablet 20 mEq 20 mEq Oral PRN Susan pickett MD Or potassium bicarb-citric acid (EFFER-K) effervescent tablet 20 mEq 20 mEq Or al PRN Susan Caceres MD Or potassium chloride 10 mEq in 50 mL IVPB 20 mEq Intravenous PRN Susan pickett MD potassium chloride (KLOR-CON) CR tablet 20 mEq 20 mEq Oral PRN Susan pickett MD Or potassium bicarb-citric acid (EFFER-K) effervescent [...] g 17 g Oral Daily PRN Susan pickett MD potassium chloride (KLOR-CON) CR tablet 20 mEq 20 mEq Oral PRN Susan pickett MD Or potassium bicarb-citric acid (EFFER-K) effervescent tablet 20 mEq 20 mEq Or al PRN Susan Caceres MD Or potassium chloride 10 mEq in 50 mL IVPB 20 mEq Intravenous PRN Susan pickett MD potassium chloride (KLOR-CON) CR tablet 20 mEq 20 mEq Oral PRN Susan pickett MD Or potassium bicarb-citric acid (EFFER-K) effervescent [...] Final TOTAL T4: No results found for: [id number] TOTAL T3: No results found for: TT3 [...] 10:42 AM CDT Anabella Faye, transferred from [facility] to unit 618 at 1040 . The patient was made aware of the transfer. The patient was transported via bed, accompanied by: RN The Care Plan was reviewed-yes. A full report was given to GENI Delgado. P t VSS and A&Ox4 at the time of transfer. * Nunu Haas RN - 01/01/2022 1:01 PM CDT Pt. Adm. To CICU #4 from CV lab at this time, here, all belongings brought from pt.'s previous room H515. Pt. A/O, see assessment. Denies pain at this ti me, skin with very dry, connor color feet, coccyx with blanchable redness and mep ilex applied. Pictures taken, in chart. Van at appx. 61cm, site D/I. IV's in left arm intact. Oriented to CICU room, call light in reach. Dr. Unger moe re of adm. To CICU #4. documented in this encounter Miscellaneous Notes * Nursing Discharge - Mercedes Martinez RN - 01/09/2022 12:18 PM CDT Nursing Discharge Note Patient discharged this afternoon to [facility] [place]. Report called to Lola at the facility. IVs removed without difficulty. Discharge instructions re viewed with patient and . Family provided transportation. Patient/family satisfied with progress made towards goals and ready for discharg e. * Care Progression Final DC Note - Princess Echeverria LMSW - 01/09/2022 10:36 AM CDT Final Discharge Note Notified during rounds that pt is able to DC to [facility] this afternoon. Pt's family already at the hospital to transport pt to rehab facility. Spoke to rehabilitation aide/scheduler, December, and confirmed pt's DC. SW will call her back with confirmed DC time when pt leaves the hospital. SW confirmed with December that they have a urologist on staff that can complete voiding trial as recommended by [facility] Urologist. CELI also confirmed that at time of DC [...] and staff. Patient will discharge to: [facility] Acute Rehab Transportation: Family Discharge Time: 12:00 Special Instructions: None. [facility] Re[facility]: P: [phone] F: [phone] Princess Echeverria, 01/09/2022 10:41 AM Ext. [phone] * Therapy Note - Reyna Rangel DPT [...] Torres NP - 01/09/2022 9:13 AM CDT [facility]ovascular Consult[facility] Electrophysiology Device Sign-Off Note Name: Anabella Faye CPI: [id number] Date of : 1950 Primary care physician: [...] y.o. male who is currently admitted to [facility] under the heart failure service. We were consulted for ve ntricular tachycardia and consideration of [employer]ERSON [employer] device. In that setting, plan was made for implantation of a(an) defibrillator for the p urposes of secondary prevention of sudden cardiac arrest. The patient underwent placement of the device and tolerated procedure well. The device and lead inform wai including the device settings are listed below. Device Implant Summary: Devices ICD Implant Defibrillator Evera Mri Dr Xt [id number] - [id number] - Implanted (Left ) Chest Inventory item: IMPLANT DEFIBRILLATOR EVERA MRI DR XT [id number] Model/Cat number: [id number] Serial number: [id number] Controller Repairer And Tester: [employer] CARDIAC RHYTHM MGMT Lot number: [id number] Area/Chamber: Chest Laterality: Left Implant Date: 01/08/2022 As of 01/08/2022 Status: Implanted Mode: MVP Lower Rate: 50 Upper Rate: 130 Lead Implant Lead Sprint Quattro 62cm Secure S [id number] - [id number] - Implanted He art Ventricle Inventory item: IMPLANT LEAD SPRINT QUATTRO 62CM SECURE S [id number] Model/Cat num katie: [id number] Serial number: [id number] Controller Repairer And Tester: [employer]TR[employer] CARDIAC RHYTHM MGMT Lot number: [id number] Area/Chamber: Heart Ventricle Implant Date: 01/08/2022 As of 01/08/2022 Status: Implanted Location: RV Sensing Threshold (mV): 6.8 Slew Rate (V/s): 2.6 Pacing Impedance (ohms): 559 Capture Threshold (V): 0.5 Capture Threshold (mA): 1.1 Implant Lead Pacemaker Atrial/Ventricle 52cm Capsure Fix Novus 4076-52 - [id number] - Implanted (Right) Heart Atrium Inventory item: IMPLANT LEAD PACEMAKER ATRIAL/VENTRICLE 52CM CAPSURE FIX NOVUS 4076-52 Model/Cat number: [id number] Serial number: [id number] Controller Repairer And Tester: [employer]TR[employer] CARDIAC RHYTHM MGMT Lot number: [id number] Area/Chamber: Heart Atrium Implant Date: 01/08/2022 As [...] care of this patient. Je Torres DNP, CORPORATE DEVELOPMENT ANALYST-C * Nutrition Note - Azeb Flores, MELODY - 01/09/2022 8:41 AM CDT Nutrition Length of Stay [facility] Patient: Anabella Faye Age: 71 y.o. [...] * End of Shift Note - Reyna Graduno RN - 01/09/2022 5:15 AM CDT End of Shift Summary and Plan of Care Pt left PPM site intact. SR with 1st degree and BB. VSS. Pt did complain of pain in left ppm site, tylenol and flexril given with relief. Pt resting in bed at this time. Plan to transfer to rehab in [facility] today . Goals per Patient [...] Quiñones MD - 01/08/2022 1:01 PM CDT [facility] Pre-Sedation Assessment H&P Update Chief complaint/ [...] base of the uv hemanth are visible [facility] Clinical Frailty Scale: Vulnerable - While not [...] 1.06% 6 1.89% 7 or greater 3.25% ELIZABETH Goldstein et al. Risk Factors for [...] to going fo r ICD placement. Brian Eddy OTR/L Occupational Therapist * Therapy Note - [...] return home at this time and [facility] care placement at d/c. Anticipate [...] recliner upon PT arrival and reports that adwoa freed is feeling better today but is [...] home at this time and [facility] care [facility] at d/c. * Therapy Note - Brian Surjit, OT - 01/07/2022 9:15 AM CDT 01/07/22 0915 Visit Type Visit Type Treatment OT Visit Info Initial OT Visit On 01/06/22 OT Received On 01/07/22 OT Visit # 2 Precautions Fall Risk Yes Supplemental Oxygen on RA ADL Adaptive Equipment/Durable Medical Equipment Transportation Supervisor Grooming Minimal Assistance Grooming Type of Task [...] at home for bat kimmy. Energy conservation Cognition Overall Cognitive Status WFL [...] * End of Shift Note - Wes Figueroa RN - 01/07/2022 5:19 AM CDT End [...] heart cath * Therapy Note - Brian Eddy, OT - 01/06/2022 3:36 PM CDT 01/06/22 [...] Home Assistive Device Rolling walker Adaptive Equipment/DME Transportation Supervisor;Sock aid;Long-handled shoe horn;Dressing stick Prior Function Level of [place] Independent with ADLs;Independent with functional transfer s;Independent [...] Facility Brian Eddy OTR/L Occupational Therapist * Therapy Note - Reyna Rangel DPT - 01/06/2022 2:02 PM CDT 01/06/22 1402 Visit Type Visit Type Evaluation PT Visit Info Initial PT Visit On 01/06/22 Assessed for Rehab Yes Past medical history reviewed through chart review: Yes Referral Reason PT eval and tx -- "physical deconditioning" Medical Dx per Physician Acute on chronic systolic heart failure, cardiogenic sh ock, LVAD evaluation Ordering practitioner GENI Miller, AGACNP Comorbidities pertaining to therapy diagnosis Past Medical History: Atrial fibrillation (HCC) Cancer (HCC) Cardiomyopathy (HCC) CHF (congestive heart failure) (HCC) Diabetes mellitus (HCC) Patient/Family Reports Pt sitting in recliner upon PT arrival and reports that adwoa freed is feeling better today, but still [...] prior to admission Prior Function Level of [place] Independent with ADLs;Independent with functional transfer s;Independent with ambulation;Independent with homemaking Receives Help From Family 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 Covid swab + this admission to [facility] Per pulm- History of COVID infection He [...] and Plan of Care Pt came [facility] from outside hospital for LVAD workup. Pt [...] - 01/02/2022 3:09 PM CDT Nutrition Assessment [facility] DIAGNOSIS & INTERVENTION: DIAGNOSIS 1 Nutrition [...] REASON FOR CONSULT: Nutrition VAD Evaluation Patient: Anabella Faye Age: 71 y.o. : [...] Infusions: heparin 15.8 Units/kg/hr (01/02/22 0528) PRN Meds:acetaminophen OR acetaminophen, aluminum-magnesium hydroxide-simeth icone, [...] of Care Received pt just after 1400. Van in [address]. Pt resting in bed, at [...] any c/o pain, tylenol for pain at [place] site Goals/Plan for Hospital Stay Patient/Family stated [...] patient. Patient gets his medications from the [facility] ne: [phone], fax: [phone]. Both Entresto and Jardiance are [place] formula [place] the [place], and will be $11 each. Recommnend sending a script for a 14 day supply of each to the [facility] at discharge, so that patient can discharge with some, and send a script to the [facility] as well. [facility] will mail the medication to the patient. * Care Progression Initial Assessment - Radha Rowland RN - 01/01/2022 9:09 AM CDT Care Progression Initial Assessment Discharge Plan Care Progression Plan: Home self care Other Comments: Patient is transferred from OSH for evaluation for advanced heart failure therap ies. He is , drives, and uses no DME. He has no HH or placement history . His PCP is Brian Madera at the [facility]. Dr. Fitzpatrick at the [facility] orders his medications. Patient Information Information [...] Nurse Only Cardiology Anali Herr MD [address] [place] [address] 02/09/2022 Telephone Cardiology Vanessa Phillip FNP [address] [place] [address] 04/16/2022 Office Visit Cardiology 04/16/2022 Nurse Only [...] 5:27 AM CDTThis note is in progress. 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 : [id number] : 1950 Requested By: ANALI HERR Order Number: [id number] Reading MD: Harvinder ts Intervals [place] Rate: 82 P: 215 WY: 72 QRS: -68 QRSD: 148 T: 95 QT: 440 QTc: 514 Interpreti ve Statements Sinus or ectopic atrial rhythm Ventricula r premature complex Short [place] interval Nonspecifi c IVCD with LAD Inferior [...] ANABELLA FAYE Sex#: M #: 1950 Sera#: [id number] Location: [address] H618-01 Ordering Provider: CHUCK QUIÑONES Procedure Requested: [id number] XR CHEST 2 VIEWS (PA AND LATERAL) [...] ANABELLA FAYE Sex#: M #: 1950 Sera#: [id number] Location: [address] H618-01 Ordering Provider: CHUCK QUIÑONES Procedure Requested: [id number] XR CHEST 2 VIEWS (PA AND LATERAL) [...] 19 Chuck Quiñones MD IMG DIAGNOSTIC IMAGING ORDMarbin HONG * [...] City/State/ZIP Code Phone Number [place]forming [place] [address] [facility] [address] [place] [address] * (ABNORMAL) Complete Blood Count (01/09/2022 6:14 [...] City/State/ZIP Code Phone Number Performing Address Organization [address] * (ABNORMAL) Comprehensive Metabolic Panel (01/09/2022 6:14 [...] CDT Comment: Reference range updated 06/29/[address] [facility] conversion to [facility] [employer] instrumentation. Bilirubin Total 1.00 0.20 - 01/09/2022 SLRL 1.10 7:36 AM mg/dL CDT Blood Urea Nitrogen 11 9 - 23 01/09/2022 SLRL mg/dL 7:36 AM CDT Creatinine 1.10 0.70 - 01/09/2022 SLRL 1.30 7:36 AM mg/dL CDT eGFR 71.3 60.0 - 01/09/2022 SLRL 200.0 7:36 AM mL/min/1 CDT .73m*2 Comment: The National Kidney Foundation and the [place] Society of Nephrology (NKF-ASN) recommends using the [...] City/State/ZIP Code Phone Number Performing [place] [address] * Electrocardiogram (ECG) (01/09/2022 5:25 AM CDT) [...] Narrative TRACEMASTER - 01/09/2022 2:59 PM CDT [facility] Test Date: 2022-01-09 Pat Name: ANABELLA SAINT JO Department: [facility] Room: 18 Gender: Male Fish Technologist: [id number] : 1950 Requested By: CHUCK QUIÑONES Order Number: [id number] Reading MD: Anna Quintanilla Measurements Intervals [place] Rate: 83 P: 0 W[place]: QRS: -68 QRSD: 159 T: 89 QT: 427 QTc: 502 Interpretive Statements Uncertain rhythm: review possible ACCELERATED JUNCTIONAL RHYTHM Nonspecific IVCD with LAD Inferior infarct, old Anteroseptal infarct, age indeterminate Electronically Signed On 01-09-2022 14:59:15 CDT by Anna Quintanilla Procedure Note Anna Quintanilla MD - 01/09/2022 [facility] Test Date: 2022-01-09 Pat Name: ANABELLA SAINT JO Department: [facility] Room: H618 Gender: Male Fish Technologist: [id number] : 1950 Requested By: CHUCK QUIÑONES Order Number: [id number] Reading MD: Anna Quintanilla Measurements Intervals [place] Rate: 83 P: 0 WY: QRS: -68 QRSD: 159 T: 89 QT: [...] City/State/ZIP Code Phone Number Performing [place] [address] [facility] [address] [facility] * ICD INSERTION DUAL, UPPER EXTREMITY VENOGRAM (01/08/2022 3:06 PM CDT) Modality Anatomical Region Laterality Cardiac Electrophysiology Anatomical Location / Laterality Collection Method / Volume Smitha ection Time Received Time Specimen (Source) Narrative 01/08/2022 3:25 PM CDT [facility] CARDIAC ELECTROPHYSIOLOGY SERVICE OPERATIVE REPORT Date of Procedure: 01/08/2022 PREOPERATIVE DIAGNOSES: Sustained ventricular tachycardia POSTOPERATIVE DIAGNOSES: Status-post dual chamber implantable cardioverter defibrillator (ICD) implantation PROCEDURES PERFORMED: 1. Left upper extremity venogram. 2. ICD implantation. ATTENDING CREATIVE DEVELOPER: Anali Herr MD FELLOW CREATIVE DEVELOPER: Dr. Chuck Quiñones ESTIMATED BLOOD LOSS: <5 [...] the modified Seldinger technique, 7 and 9 Indonesian peel away sheaths were placed in the [...] dressing. DEVICE DATA: Devices ICD Implant Defibrillator Demetriusa Eloy Dr Jean-Baptiste [id number] - [id number] - Implanted (Left) Chest Inventory item: IMPLANT DEFIBRILLATOR EVERA ELOY DR JEAN-BAPTISTE [id number] Model/Cat number: [id number] Serial number: [id number] Controller Repairer And Tester: MEDWALTOP CARDIAC RHYTHM MGMT Lot number: [id number] Area/Chamber: Chest Laterality: Left Implant Date: 01/08/2022 As of 01/08/2022 Status: Implanted Mode: MVP Lower Rate: 50 Upper Rate: 130 Lead Implant Lead Sprint Quattro 62cm Secure S [id number] - [id number] - Implanted Heart Ventricle Inventory item: IMPLANT LEAD SPRINT QUATTRO 62CM SECURE S [id number] Model/Cat number: [id number] Serial number: [id number] Controller Repairer And Tester: [employer]TRON[employer] CARDIAC RHYTHM MGMT Lot number: [id number] Area/Chamber: Heart Ventricle Implant Date: 01/08/2022 As of 01/08/2022 Status: Implanted Location: RV Sensing Threshold (mV): 6.8 Slew Rate (V/s): 2.6 Pacing Impedance (ohms): 559 Capture Threshold (V): 0.5 Capture Threshold (mA): 1.1 Implant Lead Pacemaker Atrial/Ventricle 52cm Capsure Fix Novus 4076-52 - [id number] - Implanted (Right) Heart Atrium Inventory item: IMPLANT LEAD PACEMAKER ATRIAL/VENTRICLE 52CM CAPSURE FIX NOVUS 4076-52 Model/Cat number: [id number] Serial number: [id number] Controller Repairer And Tester: [employer]TR[employer] CARDIAC RHYTHM MGMT Lot number: [id number] Area/Chamber: Heart Atrium Implant Date: 01/08/2022 As [...] 01/07/2022 VYAIRE 87.26 % 1:22 PM CDT RAX65-12% (pre) 1.57 1.04 - 01/07/2022 VYAIRE 4.54 [...] 49 % 01/07/2022 VYAIRE 1:22 PM CDT AGN1TYY (pre%PRED) 105 % 01/07/2022 VYAIRE 1:22 PM CDT PQH84-89 (pre%PRED) 63 % 01/07/2022 VYAIRE 1:22 PM [...] restriction Narrative 01/07/2022 2:18 PM CDT [facility] Measurement date01/07/22 Pulmonary Function Report - SPIROMETRY [...] Range Time Unfractionated 0.40 0.30 - 01/07/2022 R Heparin Anti Factor 0.70 9:11 AM Xa [...] City/State/ZIP Code Phone Number Performing Address Organization [place], [place] [address] [place] [address] * COVID-19 Diagnostic PCR (PUI) (01/05/2022 5:31 PM CDT) Pathologist Signature Component Value Ref Test Method Analysis Performed A t Range Time SARS-COV-2 PCR Negative Negative 01/06/2022 [facility] 6:39 AM CDT Anatomical Location / Laterality Collection Method / Volume Smitha ection Time Received Time Specimen (Source) Non-Blood Collection / Unknown 01/05/2022 5:31 PM CDT 01/05/2022 6:00 PM CDT Swab (NASOPHARYNGEAL SWAB) Narrative [facility] - 01/06/2022 6:39 AM CDT This RT-PCR test has been authorized by the FDA under an Emergency Use Authorization (EUA) for use by authorized laboratories. Ponce Fonseca MD MICROBIOLOGY - [facility] City/[facility]/ZIP Code Phone Number Performing Address Organization [place], [place] [id number] [place] [address] * US Carotid Duplex bilat (01/03/2022 8:53 [...] in the vertebral art eries. READING SITE: [facility] 01/03/2022 9:25 AM CDT Patient: ANABELLA FAYE Sex#: M #: 1950 Sera#: [id number] Location: [place] [id number] Ordering Provider: AGNES UNGER Procedure Requested: [id number] US CAROTID DUPLEX BILAT Reason for Exam: [...] ANABELLA FAYE Sex#: M #: 1950 Sera#: [id number] Location: [address] H618-01 Ordering Provider: AGNES UNGER Procedure Requested: [id number] US CAROTID DUPLEX BILAT Reason for Exam: [...] in the vertebral sara colleen. READING SITE: [facility] Agnes Unger MD CV VASCULAR ORDERABLES [...] 01/06/2022 3:41 PM CDT NAME: Anabella Faye :[id number] GENDER:M [facility] CPI:[id number] BATH AC[facility] NUM:[id number] TEST:Cardiac MRI with and without contrast and Imaging Flow Velocity Map TEST DATE: TEST LOCATION:L PATIENT STATUS:I REFERRING PHYSICIAN:Oralia Avelar MD REASON FOR TEST:Evaluate NICM(Unspecified NICM) PROCEDURE NOTE: Patient was imaged on the [place] RA325w 1.5T magnet scanner. A total of 40ml [...] Normal caliber descending aorta without coarctation. Conventional ao9ojat arch anatomy. Normal caliber main pulmonary artery. [...] Moshe Neely MD. Moshe Neely MD [address], [address] [place] [address] DICTATED:2022-01-03 16:05:11.0 TRANSCRIBED:2022-01-06 12:55:15.0 PROVIDER APPROVAL:2022-01-06 15:01:45.0 Procedure Note Moshe Neely MD - 01/06/2022 NAME: Anabella Faye :[id number] GENDER:M [facility] CPI:[id number] [facility] NUM:[id number] TEST:Cardiac MRI with and without contrast and Imaging Flow Velocity Map TEST DATE: TEST LOCATION:L PATIENT STATUS:I REFERRING PHYSICIAN:Oralia Avelar MD REASON FOR TEST:Evaluate NICM(Unspecified NICM) PROCEDURE NOTE: Patient was imaged on the [place] AG328r 1.5T magnet scanner. A total of 40ml [...] Normal caliber descending aorta without coarctation. Conventional mm7dmbr arch anatomy. Normal caliber main pulmonary artery. [...] Moshe Neely MD. Moshe Neely MD [address], [address] [place] [address] DICTATED:2022-01-03 16:05:11.0 TRANSCRIBED:2022-01-06 12:55:15.0 PROVIDER APPROVAL:2022-01-06 15:01:45.0 [...] City/State/ZIP Code Phone Number Performing [place] [address] [facility] [address] [place] [address] * (ABNORMAL) Creatinine Clearance (Urine) (01/02/2022 11:58 [...] Creatinine Urine 24 1.1 0.8 - 01/03/2022 [facility] Hour Calculation 2.0 12:58 AM g/24hr CDT Anatomical Location / Laterality Collection Method / Volume Smitha ection Time Received Time Specimen (Source) Non-Blood Collection / Unknown 01/02/2022 11:58 PM CDT 01/03/2022 12:10 AM CDT Urine (Urine) Agnes Unger MD URINE ORDERABLES City/State/ZIP Code Phone Number Performing [place] [address] * CT Abdomen wo contrast (01/02/2022 3:22 PM CDT) Modality Anatomical Region Laterality Computed Tomography Abdomen Anatomical Location / Laterality Collection Method / Volume Smitha ection Time Received Time Specimen (Source) 01/02/2022 3:22 PM CDT Impressions 01/02/2022 3:48 PM CDT Punctate nonobstructing left renal calculi. Otherwise unremarkable noncontrast appearance of the kidneys. For other findings please see above. READING SITE: [facility] 01/02/2022 3:48 PM CDT Patient: ANABELLA FAYE Sex#: M #: 1950 Sera#: [id number] Location: [facility] H618-01 Ordering Provider: RAMIRO DALE Procedure Requested: [id number] CT ABDOMEN WO CONTRAST Reason for Exam: [...] in the lumbar spine. Anasarca. Procedure Note DontrellMaxine schraderDO - 01/02/2022 Patient: ANABELLA FAYE Sex#: M #: 1950 Sera#: [id number] Location: [address] H618-01 Ordering Provider: RAMIRO DALE Procedure Requested: [id number] CT ABDOMEN WO CONTRAST Reason for Exam: [...] other findings please see above. READING SITE: [facility] Ramiro Dale PA-C IMChinedu CT ORDERABLES * CT Chest wo contrast [...] of aortic stenosis is suspected. READING SITE: [place] [address] Narrative 01/02/2022 4:03 PM CDT Patient: ANABELLA FAYE Sex#: M #: 1950 Sera#: [id number] Location: [address] H618-01 Ordering Provider: AGNES UNGER Procedure Requested: [id number] CT CHEST WO CONTRAST Reason for Exam: Smoking history Exam Ordered: 01/01/2022 0959 Begin exam date/time: 01/02/2022 152 Exam Date/Time: 01/02/20221521 COMPARISON STUDY: None. TECHNIQUE: Unenhanced axial images [...] ANABELLA FAYE Sex#: M #: 1950 Sera#: [id number] Location: [address] H618-01 Ordering Provider: AGNES UNGER Procedure Requested: [id number] CT CHEST WO CONTRAST Reason for Exam: [...] of aortic stenosis is suspected. READING SITE: [place] [address] Agnes Unger MD IMG CT ORDERABLES * [...] City/State/ZIP Code Phone Number Performing Address Organization [address] * Extra Urine Specimen in [place] Tube (01/01/2022 10:57 PM CDT) Only the most recent of 2 results within the time period is included. Pathologist Signature Component Value Ref Test Method Analysis Performed A t Range Time RAINBOW DRAW HOLD [place] 01/02/2022 [facility] SPECIMENS Draw/Extra 12:03 PM Tube Hold CDT Specimen Anatomical Location / Laterality Collection Method / Volume Smitha ection Time Received Time Specimen (Source) Non-Blood Collection / Unknown 01/01/2022 10:57 PM CDT 01/01/2022 11:02 PM CDT Urine (Urine Clean Catch) Agnes Unger MD MICROBIOLOGY - GENERAL ORDE [facility]/ZIP Code Phone Number Performing Address Organization [address] * Extra Urine Specimen in Yellow [...] City/State/ZIP Code Phone Number Performing Address Organization [address] * Urinalysis (includes microscopic review, if indicated) [...] Negative 01/01/2022 [facility] 11:08 PM CDT Specific Fellows 1.006 1.005 - 01/01/2022 [facility] Urine 1.030 [...] City/State/ZIP Code Phone Number Performing [place] [address] * Fecal Occult Blood, diagnostic (non-neoplasm [...] Unger MD BODY FLUIDS AND STOOLS ORDE [facility] City/State/ZIP Code Phone Number Performing [place] [address] [place] [address] * US Abdomen complete (01/01/2022 3:01 PM [...] 3:39 PM CDT Patient: Anabella Faye Sex#: Randal #: 1950 Sera#: [id number] Location: [address] Ordering Provider: AGNES UNGER Procedure Requested: [id number] US ABDOMEN COMPLETE Reason for Exam: LVAD [...] Anabella Faye Sex#: M #: 1950 Sera#: [id number] Location: [address] Ordering Provider: AGNES UNGER Procedure Requested: [id number] US ABDOMEN COMPLETE Reason for Exam: LVAD [...] ELECTRONICALLY SIGNED BY RAVEN CEDENO MD Agnes Unger MD IMG US [...] City/State/ZIP Code Phone Number Performing [place] [address] [place] [address] Road * Antibody Screen (01/01/2022 2:50 PM CDT) Pathologist Signature Component Value Ref Test Method Analysis Performed A t Range Time Antibody Screen Negative 01/01/2022 [facility] 2:58 PM [facility] BLOOD BANK CDT Anatomical Location / Laterality Collection Method / Volume Smitha ection Time Received Time Specimen (Source) Venipuncture / Unknown 01/01/2022 2:50 PM CDT 0 01/01/2022 2:57 PM CDT Blood (Venous) Maxine Song MD BLOOD BANK TEST ORDERABLES [facility]/State/ZIP Code Phone Number Performing Address Organization [place], [place] [address] [place] [address] BLOOD BANK * ABORH Type (01/01/2022 2:50 PM CDT) Pathologist Signature Component Value Ref Test Method Analysis Performed A t Range Time ABORH Type B Positive 01/01/2022 [facility] 2:58 PM [facility] BLOOD BANK CDT Anatomical Location / Laterality Collection Method / Volume Smitha ection Time Received Time Specimen (Source) Venipuncture / Unknown 01/01/2022 2:50 PM CDT 0 01/01/2022 2:57 PM CDT Blood (Venous) Maxine Song MD BLOOD BANK TEST ORDERABLES [facility]/ZIP Code Phone Number Performing Address Organization [place], [place] [id number] [place] [address] BLOOD BANK * (ABNORMAL) Clotting Screen (01/01/2022 [...] City/State/ZIP Code Phone Number Performing [place] [address] * Haptoglobin (01/01/2022 2:50 PM CDT) Pathologist [...] - 01/04/2022 1:06 PM CDT Performed at: [address] [id number] Garment Mender: Cesar Grant MD, Phone: [phone] Agnes Unger MD LAB BLOOD ORDERABLES City/State/ZIP Code Phone Number Performing [place] [address] [facility] FELIZ * XR Chest post line drain or [...] Similar small left pleural effusion. READING SITE: [facility] 01/01/2022 12:53 PM CDT Patient: ANABELLA FAYE Sex#: M #: 1950 Sera#: [id number] Location: [address] ICU [id number] Ordering Provider: AGNES UNGER Procedure Requested: [id number] XR CHEST POST LINE DRAIN OR AIRWAY [...] ANABELLA FAYE Sex#: M #: 1950 Sera#: [id number] Location: [address] ICU [id number] Ordering Provider: AGNES UNGER Procedure Requested: [id number] XR CHEST POST LINE DRAIN OR AIRWAY [...] Similar small left pleural effusion. READING SITE: [facility] Agnes Unger MD IMG DIAGNOSTIC IMAGING ORDE HAL * CATHETERIZATION, HEART, RIGHT (01/01/2022 12:04 PM [...] PORT HEPARIN CTD LF 8FR 5-LUMEN 110CM [id number]) catheter was inserted and advanced to the pulmonary artery wedge position under fluoroscopic guidance. Measurements of pressures, aortic (via pulse ox) and venous (via blood draw) oxygen saturations, and cardiac output (by Kaela using assumed VO2) were obtained. PA Catheter Details 2 A (CATHETER PENTALUMEN RA EXTRA PORT HEPARIN CTD LF 8FR 5-LUMEN 110CM [id number]). The catheter remained in place throughout the [...] 5. Mild aortic stenosis. 6. Mild MR. Ndhc-az-ckzejfck TR. 7. Estimated central venous and PA pressures are elevated. No previous study available for comparison. Dr. Justin Powers MD (Electronically Signed) Final Date: 01 January 2022 11:27 Narrative 01/01/2022 11:28 AM CDT ECHOCARDIOGRAM REPORT [facility] Name: ANABELLA FAYE Date: 01/01/2022 09:06 Chart #: [id number] : 1950 Location: [facility] Sono: radha Age: 71 Gender: M [...] Inferior, Apical Anterior, Mid Anterior, Basal Anterior, [place] FINDINGS LV Ejection Fraction: 24 Frequent ectopy. [...] ANABELLA FAYE Date: 01/01/2022 09:06 Chart #: [id number] : 1950 Location: [facility] Sono: radha Age: 71 Gender: M [...] Inferior, Apical Anterior, Mid Anterior, Basal Anterior, [place] FINDINGS LV Ejection Fraction: 24 Frequent ectopy. [...] 5. Mild aortic stenosis. 6. Mild MR. Edlx-mn-cvappzta TR. 7. Estimated central venous and PA [...] (Venous) Maxine Song MD LAB BLOOD ORDERABLES [facility]/ZIP Code Phone Number Performing [place] [address] * Retype Patient ABORH (01/01/2022 12:25 AM CDT) Pathologist Signature Component Value Ref Test Method Analysis Performed A t Range Time ABORH Type B Positive 01/01/2022 [facility] 3:24 PM [facility] BLOOD BANK CDT Confirm Blood Type Yes 01/01/2022 [facility] 3:24 PM [facility] BLOOD BANK CDT Anatomical Location / Laterality Collection Method / Volume Smitha ection Time Received Time Specimen (Source) Venipuncture / Unknown 01/01/2022 12:25 AM CDT 0 01/01/2022 12:38 AM CDT Blood (Venous) Maxine Song MD BLOOD BANK TEST ORDERABLES [facility]/ZIP Code Phone Number Performing [place] [address] BLOOD BANK * (ABNORMAL) Hemoglobin A1C [...] (Venous) Maxine Song MD LAB BLOOD ORDERABLES [facility]/ZIP Code Phone Number Performing [place] [address] [facility] [address] [place] [address] * (ABNORMAL) Digoxin (01/01/2022 12:25 AM CDT) [...] (Venous) Susan Caceres MD LAB BLOOD ORDERABLES City/[facility]/ZIP Code Phone Number Performing [place] [address] [address] * (ABNORMAL) Iron/Transferrin (01/01/2022 12:25 AM [...] City/State/ZIP Code Phone Number Performing [place] [address] [place] [address] * Ferritin (01/01/2022 12:25 AM [...] AM CDT Reference range updated 06/29/[address] [facility] conversion to Siemens Atell[employer] instrumentation. Susan Caceres MD LAB BLOOD ORDERABLES [facility]/ZIP Code Phone Number Performing [place] [address] [place] [address] Road * (ABNORMAL) Lipid Panel (01/01/2022 12:25 AM [...] CDT Comment: Reference range updated 06/29/[address] [facility] conversion to Siemens [employer]ell[employer] instrumentation. Non-HDL Cholesterol [...] (Venous) Susan Caceres MD LAB BLOOD ORDERABLES [facility]/State/ZIP Code Phone Number Performing [place] [address] [address] * BENZODIAZEPINES CONFIRMATION, U (12/31/2021 11:30 PM CDT) Pathologist Signature Component Value Ref Test Method Analysis Performed A t Range Time Alprazolam by Negative Cutoff: 01/06/2022 [facility] LC-MS/MS 10 ng/mL 12:25 PM LABORATORIES CDT Alpha-Hydroxyalprazo Negative Cutoff: 01/06/2022 [facility] krishnan by LC-MS/MS 10 ng/mL 12:25 PM LABORATORIES CDT Chlordiazepoxide by Negative Cutoff: 01/06/2022 [facility] LC-MS/MS 10 ng/mL 12:25 PM LABORATORIES CDT Clonazepam by Negative Cutoff: 01/06/2022 [facility] LC-MS/MS 10 ng/mL 12:25 PM LABORATORIES CDT 7-aminoclonazepam by Negative Cutoff: 01/06/2022 [facility] LC-MS/MS 10 ng/mL 12:25 PM LABORATORIES CDT Diazepam by LC-MS/MS Negative Cutoff: 01/06/2022 [facility] 10 ng/mL 12:25 PM LABORATORIES CDT Nordiazepam by Negative Cutoff: 01/06/2022 [facility] L LC-MS/MS 10 ng/mL 12:25 PM LABORATORIES CDT Midazolam by Negative Cutoff: 01/06/2022 [facility] LC-MS/MS 10 ng/mL 12:25 PM LABORATORIES CDT Alpha-Hydroxy Negative Cutoff: 01/06/2022 [facility] Midazolam by 10 ng/mL 12:25 PM LABORATORIES LC-MS/MS CDT Oxazepam by LC-MS/MS 251 Cutoff: 01/06/2022 [facility] 10 ng/mL 12:25 PM LABORATORIES CDT Temazepam by 3670 Cutoff: 01/06/2022 [facility] LC-MS/MS 10 ng/mL 12:25 PM LABORATORIES CDT Clobazam by LC-MS/MS Negative Cutoff: 01/06/2022 [facility] 10 ng/mL 12:25 PM LABORATORIES CDT N-Desmethylclobazam See Below Cutoff: 01/06/2022 [facility] by LC-MS/MS 10 ng/mL 12:25 PM LABORATORIES CDT Comment: Unknown interfering substance present; unable to obtain results. Flunitrazepam by Negative Cutoff: 01/06/2022 [facility] LC-MS/MS 10 ng/mL 12:25 PM LABORATORIES CDT 7-aminoflunitrazepam Negative Cutoff: 01/06/2022 [facility] by LC-MS/MS 10 ng/mL 12:25 PM LABORATORIES CDT Flurazepam by Negative Cutoff: 01/06/2022 [facility] LC-MS/MS 10 ng/mL 12:25 PM LABORATORIES CDT 2-Hydroxy Ethyl Negative Cutoff: 01/06/2022 [facility] Flurazepam by 10 ng/mL 12:25 PM LABORATORIES LC-MS/MS CDT Lorazepam by Negative Cutoff: 01/06/2022 [facility] LC-MS/MS 10 ng/mL 12:25 PM LABORATORIES CDT Prazepam by LC-MS/MS Negative Cutoff: 01/06/2022 [facility] 10 ng/mL 12:25 PM LABORATORIES CDT Triazolam by Negative Cutoff: 01/06/2022 [facility] LC-MS/MS 10 ng/mL 12:25 PM LABORATORIES CDT Alpha-Hydroxy Negative Cutoff: 01/06/2022 [facility] Triazolam by 10 ng/mL 12:25 PM LABORATORIES LC-MS/MS CDT Zolpidem by LC-MS/MS Negative Cutoff: 01/06/2022 [facility] 10 ng/mL 12:25 PM LABORATORIES CDT Zolpidem Negative Cutoff: 01/06/2022 [facility] Ixnjaj-7-Vpzvgphdmy 10 ng/mL 12:25 PM LABORATOR IES acid by LC-MS/MS CDT Benzodiazepines Positive. 01/06/2022 [facility] Interpretation 12:25 PM LABORATORIES CDT Comment: A DDITIONAL INFORMATION--------- This report is intended for use in clinical monitoring and management of patients. It is not intended for use in employment-related testing. This test was developed and its performance characteristics determined by [facility] in a manner consistent with CLIA requirements. This test has not been cleared or approved by the U.S. Food and Drug Administration. Test Performed by: [facility] [place] [id number] Garment Mender: Albert Singh M.D. Ph.D.; CLIA# [id number] Anatomical Location / Laterality Collection Method / Volume Smitha ection Time Received Time Specimen (Source) Non-Blood Collection / Unknown 12/31/2021 11:30 PM CDT 01/01/2022 10:35 AM CDT Urine (Urine Clean Catch) Maxine Song MD URINE ORDERABLES City/State/ZIP Code Phone Number Performing [place] [address] * (ABNORMAL) COVID PCR - Rapid [...] NASOPHARYNGEAL SWAB Susan Caceres MD MICROBIOLOGY - GENERAL [facility]/ZIP Code Phone Number Performing [place] [address] [address] [facility] * (ABNORMAL) Toxicology Screening Panel (12/31/2021 11:30 [...] tricyclic antidepressants. Maxine Song MD URINE ORDERABLES [facility] Code Phone Number Performing Address Organization [address] * (ABNORMAL) Uric Acid (12/31/2021 8:44 PM [...] PM CDT Blood (Venous) Narrative RL - 01/01/2022 10:33 AM CDT Reference range updated 06/29/21 with [facility] conversion to Siemens [employer]ell[employer] instrumentation. Maxine Song MD LAB BLOOD ORDERABLES [facility] Code Phone Number Performing Address Organization [address] * Prealbumin (12/31/2021 8:44 PM CDT) [...] instrumentation. Maxine Song MD LAB BLOOD ORDERABLES [facility]/ZIP Code Phone Number Performing Address Organization [place], [place] [address] [place] [address] * Magnesium (12/31/2021 8:44 PM CDT) Only [...] (Venous) Maxine Song MD LAB BLOOD ORDERABLES [facility]/ZIP Code Phone Number Performing [place] [address] * Rapid Plasma Reagin (12/31/2021 8:44 [...] (Venous) Maxine Song MD LAB BLOOD ORDERABLES [facility]/ZIP Code Phone Number Performing [place] [address] * PSA Screen (12/31/2021 8:44 PM CDT) [...] - 01/01/2022 12:00 PM CDT Method for [facility] is [employer]. Maxine Song MD LAB BLOOD ORDERABLES [facility]/ZIP Code Phone Number Performing [place] [address] * (ABNORMAL) Creatinine (Serum) (12/31/2021 8:44 PM [...] (Venous) Maxine Song MD LAB BLOOD ORDERABLES [facility]/ZIP Code Phone Number Performing [place] [address] * Acute Hepatitis Panel (12/31/2021 8:44 [...] (Venous) Maxine Song MD LAB BLOOD ORDERABLES [facility]/ZIP Code Phone Number Performing [place] [address] [address] * HIV AG/JOEY (12/31/2021 8:44 PM [...] (Venous) Maxine Song MD LAB BLOOD ORDERABLES [facility]/ZIP Code Phone Number Performing [place] [address] * Lactate Dehydrogenase (12/31/2021 8:44 PM CDT) [...] PM CDT Reference range updated 06/29/[address] [facility] conversion to [employer] instrumentation. Maxine Song MD LAB BLOOD ORDERABLES [facility]/ZIP Code Phone Number Performing [place] [address] [place] [address] * Lactate Venous WB - Reflex STAT [...] (Venous) Susan Caceres MD LAB BLOOD ORDERABLES [facility]/State/ZIP Code Phone Number Performing [place] [address] * (ABNORMAL) Prothrombin Time/INR (12/31/2021 [...] (Venous) Susan Caceres MD LAB BLOOD ORDERABLES [facility]/ZIP Code Phone Number Performing [place] [address] * (ABNORMAL) Thyroid Stimulating [...] PM CDT Reference range updated 06/29/[address] [facility] conversion to [employer] instrumentation. Susan Caceres MD LAB BLOOD ORDERABLES [facility]/State/ZIP Code Phone Number Performing [place] [address] * (ABNORMAL) BNP (12/31/2021 8:44 PM [...] Narrative SLRL - 12/31/2021 9:22 PM CDT [facility] converted from NTproBNP (Ortho - [facility]) to BNP ([employer]) on June 29, 2021. Susan Caceres MD LAB BLOOD ORDERABLES [facility]/ZIP Code Phone Number Performing [place] [address] * (ABNORMAL) T4 Free (12/31/2021 8:44 PM [...] PM CDT Reference range updated 06/29/[address] [facility] conversion to [employer] instrumentation. Maxine Song MD LAB BLOOD ORDERABLES [facility]/ZIP Code Phone Number Performing [place] [address] * XR Chest single view frontal (12/31/2021 [...] or edited the final report. READING SITE: [facility] 01/01/2022 7:49 AM CDT Patient: ANABELLA FAYE Sex#: [id number] #: [id number] Sera#: [id number] Location: [address] H515-01 Ordering Provider: SUSAN CACERES Procedure Requested: [id number] XR CHEST SINGLE VIEW FRONTAL Reason for [...] ANABELLA FAYE Sex#: M #: [id number] Sera#: [id number] Location: [address] CTX H515-01 Ordering Provider: SUSAN CACERES Procedure Requested: [id number] XR CHEST SINGLE VIEW FRONTAL Reason for [...] or edited the final report. READING SITE: [facility] Susan Caceres MD IMG DIAGNOSTIC IMAGING ORDE HAL documented in this encounter Visit Diagnoses Diagnosis [...] Dose Rate Site Medication Order MAR Action 01/09/2022 8:11 AM CDT 650 mg acetaminophen [...] last modification) on Wed01/09/22 at 090 0 apixaban (ELIQUIS) tablet 5 mg 5 mg, [...] mg Given 01/06/2022 9:04 PM CDT 01/08/2022 1:52 PM CDT 5 mL Chest bupivacaine HCl (MARCAINE) 0.5 % (5 Given mg/mL) injection As needed, Starting on Wed01/08/22 at 1350, Intra-Procedure (Cath) 10 mL Chest Given 01/08/2022 1:50 PM CDT 01/08/2022 1:28 PM CDT 2 g ceFAZolin (ANCEF) injection New Bag Intra-op continuous PRN, Starting on 01/08/22 at 1328, Intra-Procedure (Cath) 01/08/2022 2:40 PM CDT 1 g Chest ceFAZolin (ANCEF) injection New Bag Intra-op continuous PRN, Starting on 01/08/22 at 1440, Intra-Procedure (Cath) 01/08/2022 9:07 PM CDT 10 mg cyclobenzaprine [...] Call physician if less than 70 mg/dL. 01/07/2022 9:35 AM CDT 100 mg docusate sodium (COLACE) capsule 100 mg Given 100 mg, Oral, 2 times daily PRN, stool softening, Starting on Wed12/31/21 at 1910, Swallow capsule whole 01/09/2022 8:10 AM CDT 10 mg empagliflozin (JARDIANCE) tablet 10 mg Given 10 mg, Oral, Daily, First dose on Adrienne 01/01/22 at 1215, Hold if patient is [...] 25 mg Given 01/07/2022 9:35 AM CDT 01/08/2022 1:56 PM CDT 25 mcg fentaNYL (SUBLIMAZE) injection Given As needed, Starting on Wed01/08/22 at 1337, Intra-Procedure (Cath) 25 mcg Given 01/08/2022 1:46 PM CDT 25 mcg Given 01/08/2022 1:37 PM CDT 01/08/2022 9:24 AM CDT 1 spray fluticasone propionate (FLONASE) 50 Given mcg/actuation nasal spray 1 spray 1 spray, Each Nare, Daily, First dose o n [facility] 01/01/22 at 0900 1 spray Given 01/07/2022 9:36 AM CDT 1 spray Given 01/06/2022 8:56 AM CDT 01/09/2022 8:10 AM CDT 40 mg furosemide (LASIX) tablet 40 mg Given 40 mg, Oral, Daily, First dose on Wed01/07/22 at 0900 40 mg Given 01/08/2022 9:22 AM CDT 40 mg Given 01/07/2022 9:39 AM CDT glucagon (GLUCAGEN) injection 1 mg 1 mg, Intramuscular, As needed, low blood sugar, low blood sugar, Starting on Wed12/31/21 at 2141, Give if patient NPO and no IV access. May give IM or SQ in arm and turn patient on side. Reconstitute powder for injection by adding 1 mL of [employer] developer-supplied sterile diluent or sterile water for injection [...] for injection by adding 1 mL of [employer] developer-supplied sterile diluent o r sterile water for [...] Call physician if less than 70 mg/dL. 01/04/2022 5:42 PM CDT 1 Units Right [...] 25 mcg Given 01/07/2022 6:00 AM CDT 01/08/2022 1:52 PM CDT 5 mL Chest lidocaine (pf) (XYLOCAINE-MPF) 10 mg/mL Given (1 %) injection As needed, Starting on Wed01/08/22 at 1350, Intra-Procedure (Cath) 10 mL Chest Given 01/08/2022 1:50 PM CDT magnesium sulfate IVPB 4 gram (premix) 4 [...] 12.5 mg, Oral, Daily, First dose on Wed01/08/22 at 1215, Hold if HR < 60 DO NOT CRUSH OR CHEW. 12.5 mg Given 01/08/2022 12:04 PM CDT miconazole nitrate (ALOE VESTA) 2 % ointment Topical, 3 times daily PRN, perineal or skin fold redness, Starting on Wed12/31/21 at 1910, Consult wound care if no improvement within 3 days. 01/08/2022 1:56 PM CDT 1 mg midazolam (VERSED) injection Given As needed, Starting on Wed01/08/22 at 1337, Intra-Procedure (Cath) 1 mg Given 01/08/2022 1:46 PM CDT 1 mg Given 01/08/2022 1:37 PM CDT nitroglycerin (NITROSTAT) SL tablet 0.4 mg 0.4 mg, Sublingual, Every 5 min PRN, chest pain, Starting on Wed12/31/21 at 1910, For 3 doses, May repeat every 5 minutes for a total of 3 doses. Check B P prior to each dose. Discontinue use for SBP less than 90 mmHg. Notify physicia n if given. DO NOT CRUSH OR CHEW. polyethylene glycol (GLYCOLAX) packet 1 7 g 17 g, Oral, Daily PRN, constipation, Starting on Wed12/31/21 at 1910, Hold these medications if patient has had loose stool or diarrhea within previous 24 hours. 01/06/2022 11:59 PM CDT 5 mg prochlorperazine (COMPAZINE) injection 5 Given mg 5 mg, Intravenous, Every 6 hours PRN, nausea, vomiting, Starting on Wed 2 at 2332 01/09/2022 8:10 AM CDT 1 tablet sacubitriL-valsartan (ENTRESTO) 49-51 mg Given per tablet 1 tablet 1 tablet, Oral, 2 times daily, First dose on Wed01/07/22 at 0900 1 tablet Given 01/08/2022 9:04 PM CDT 1 tablet Given 01/08/2022 9:21 AM CDT 01/09/2022 8:10 AM CDT 0.4 mg tamsulosin [...] PRN, sleep, Startin g on Wed12/31/21 at 2028, Do not administer in the presence of [...] Daily, First dose on Sun Provider: Gabby vaz R 01/04/22 at 1445 GENI Spencer) 0924 (Given [...] Daily, First dose on Wed Provider: Gabby vaz R 01/07/22 at 0900 GENI Spencer) 0730 [...] nightly, First dose on Reason: Orde r Wed12/31/21 at 2200, LEVEL 2 - Give in parameters no t addition to scheduled mealtime insulin met)1130 (Not Given per table DO NOT GIVE for any 2 hours - Provider: Randal garza post meal fingerstick blood glucose Ashley Spencer RN - checks. If pt NPO or on continuous Reason: Order enteral/parenteral nutrition - give with parameters not scheduled fingerstick blood glucose met)1700 (Not Gi kira check - dose per table Glucose (mg/dL) - Provider: Eugenia Dose 0-120 Ashley Spencer RN - 0 units 121-150 Reason: Order 0 [...] 12.5 mg, Oral, Daily, First dose on Wed01/08/22 at 1215, Hold if HR < 60 DO NOT CRUSH OR CHEW. 0921 (Given - Provider: Ayana lanza RN)2104 (Given - Provider: Reyna Garduno RN) 0810 (Given - Provider: Ashley Wade) sacubitriL-valsartan (ENTRESTO) 49-51 mg 0939 (Given - per tablet 1 tablet Provider: Eugenia R 1 tablet, Oral, 2 times daily, First GENI Spencer)20 32 dose on Wed01/07/22 at 0900 (Given - Provider: Jatin Wynne, RN) 0922 (Given - Provider: Ayana lanza, GENI) 0810 (Given - Provider: Ashley Wade) tamsulosin [...] s and INCREASE dose by 1 unit/kg/hr. Che k Anti-Xa level 6 hours after dose [...] 01/09/2022 Medication Order 01/07/2022 acetaminophen (TYLENOL) tablet [phone] (Given - mg (CANCELED) Provider: Jatin Bertrand 325-650 mg, Oral, Every 6 hours PRN, GENI Wynne) mild pain (pain score 1-3), fever greater than 101.5 F, Starting on Wed12/31/21 at 2141, Do not exceed 4 GM/DAY of acetaminophen. If 65 or older do no t exceed 3 GM/DAY. If chronic alcoholic d o not exceed 2 GM/DAY. 2103 (Given - Provider: Reyna davis RN) 0401 (Given - Provider: Reyna davis, GENI)0811 (Given - Provider: Mercedes Martinez RN) acetaminophen [...] injection (COMPLETED) Intra-op continuous PRN, Starting on u 01/08/22 at 1328, Intra-Procedure (Cath) 1440 (New Bag - Provider: Chuck Quiñones MD - Comment: Pocket flush) ceFAZolin (ANCEF) injection (COMPLETED) Intra-op continuous PRN, Starting on u 01/08/22 at 1440, Intra-Procedure (Cath) 2107 (Given - Provider: Reyna advis, GENI) cyclobenzaprine (FLEXERIL) tablet 10 mg 2150 (Given - 10 mg, Oral, 3 times daily PRN, muscle Provider: Himanshu pierre, Indications: muscle spasm, GENI Wynne) Starting on [...] whole 1337 (Given - Provider: Arlene Nicole , GENI)1346 (Given - Provider: Arlene Nicole, RN)1356 (Given - Provider: Arlene Nicole, GENI) fentaNYL (SUBLIMAZE) injection (CANCELED) As needed, Starting on Wed01/08/22 at 1337, Intra-Procedure (Cath) glucagon (GLUCAGEN) injection 1 mg(Linked Group 2) 1 mg, Intramuscular, As needed, low blood sugar, low blood sugar, Starting on Wed12/31/21 at 2141, Give if patient NPO and no IV access. May give IM or SQ in arm and turn patient on side. Reconstitute powder for injection by adding 1 mL of [employer] developer-supplied sterile diluent or sterile water for injection [...] for injection by adding 1 mL of [employer] developer-supplied sterile diluent o r sterile water for [...] Nicole RN)1346 (Given - Provider: Arlene Nicole, RN)1356 (Given - Provider: Arlene Nicole RN) midazolam [...] at 2332 2107 (Given - Provider: Reyna davis, GENI) zolpidem (AMBIEN) tablet 5 mg 2149 (Given - 5 mg, Oral, Nightly PRN, sleep, Starting Provider: Randal Bertrand on Wed12/31/21 at 2028, Do not GENI Wynne) administer in the presence of confusion or [...] inje ction by adding 1 mL of [employer] developer- supplied sterile diluent or sterile water for [...] inje ction by adding 1 mL of [employer] developer- supplied sterile diluent or sterile water for [...]
--- OUTSIDE RECORDS SUMMARY | 2022-01-09 16:30 | XMS REPORT | Encounter Summary ---
Author Author [facility] Organization [facility] Address Unknown Phone Unavailable Care Team Providers Care [employer] Information Clerk Name Role Phone PCP Unavailable Reason for Visit * Diagnostic Imaging (Routine) - Pending Review Diagnoses / Procedures Referred By Contact Referred To Conta ct Specialty Diagnoses Encounter for consultation Procedures Echo Outside images for PACS Ponce Fonseca MD [address] [place] [address] Referral ID Status Reason Start Date Expiration Visits Vi sits Date Requested Authorized [id number] Pending 01/05/2022 01/05/2023 1 1 Review Encounter Details Care Team Description Date Type Department Ponce Fonseca MD [address] [place] [address] Encounter for consultation 01/05/[address] [facility] e Appointment Location Social History Date Tobacco [...] Nurse Only Cardiology Jose Carlos Herr MD [address] [place] [address] 02/09/2022 Telephone Cardiology Vanessa Phillip FNP [address] [place] [address] 04/16/2022 Office Visit Cardiology 04/16/2022 Nurse Only Cardiology documented as of this encounter Procedures Comments Procedure Name Priority Date/Time Associated Diag nosis ECHO OUTSIDE IMAGES FOR Routine 01/05/[address] for PACS 10:38 AM CDT consultation documented in this encounter Results * Echo Outside images for PACS (01/05/2022 10:38 AM CDT) Anatomical Location / Laterality Collection Method / Volume Smitha ection Time Received Time Specimen (Source) Ponce Fonseca MD CV ECHO ORDERABLES City/State/ZIP Code Phone Number Performing Address Organization [facility] documented in this encounter Visit Diagnoses Diagnosis Encounter for consultation documented in this encounter
--- OUTSIDE RECORDS SUMMARY | 2022-01-09 16:30 | XMS REPORT | Encounter Summary ---
Author Author [facility] Organization [facility] Address Unknown Phone Unavailable Care Team Providers Care Barker Peeler Name Role Phone PCP Unavailable Reason for Visit * Auth/Cert Diagnoses / Procedures Referred By Contact Referred To Conta ct Specialty Diagnoses Systolic heart failure Cardiogenic shock (HCC) Referral ID Status Reason Start Date Expiration Visits Vi sits Date Requested Authorized [id number] 1 1 Encounter Details Care Team Description Date Type Department Mikel Goff MD [address] [facility] [address] [place] [address] [phone] RIGHT HEART CATHETERIZATION 01/01/2022 Surgery [facility] [address] [place] [id number] Social History Date Tobacco Use Types Packs/Day Years Used Never Smoker Smokeless Tobacco: Never Used Comments Alcohol Use Standard Drinks/Week Not Currently 0 (1 standard drink = 0.6 o z pure alcohol) Sex Assigned at Date Recorded Not on file documented as of this encounter Last Filed Vital Signs Reading Time Taken Comments Vital Sign 123/103 01/01/2022 2:00 PM CDT Blood Pressure 87 01/01/2022 2:00 PM CDT Pulse 36.7 C (98.1 F) 01/01/2022 12:30 PM CDT Temperature 21 01/01/2022 2:00 PM CDT Respiratory Rate 99% 01/01/2022 2:00 PM CDT Oxygen Saturation - - Inhaled Oxygen Concentration 126.2 kg (278 lb 3.5 oz) 01/01/2022 4:45 AM CDT Weight 185.4 cm (6' 1") 12/31/2021 7:35 PM CDT Height 31.61 12/31/2021 7:35 PM CDT Body Mass Index documented in this encounter Discharge Instructions * Discharge Instructions* Je Torres NP - 01/09/2022 9:55 AM CDT [facility] Consultants Patient: Anabella Faye Date: 01/09/2022 [...] de vice. Regardless, you should always let [facility]/security know you have an implanted device [...] is n ot scheduled, please call our service learning coordinator at . Plan on having periodic [...] whether a transmission was received, please call [phone] For new device patients, three months after your device is implanted you will un dergo an in office device check along with a clinic visit with a nurse practitio [facility]. prison, plan to have a check in the [...] questions or concerns regarding your device, Call [phone] * Education* Reyna Chinchilla RN - 01/06/2022 10:20 AM CDT [facility] Heart Failure Education Note Name: Anabella Faye Date: 01/06/2022 Time: 5:21 PM Patient seen for Heart Failure education: Chart reviewed and patient interviewed . Met with patient discussed heart failure education. Patient is transferred [facility] for advanced heart therapy evaluation. Patient admitted for LVAD evaluation . Patient has a history of hypertension, diabetes, COVID, prostate cancer, was [facility] status post thoracentesis had some VT on amnio drip patient placed on a dobutamine drip and was transferred to [facility] started Pr imacor therapy. LVAD eval. Patient had cardiogenic shock. Patient has not bee n transition to [place]. EP assess for possible SUPERVISOR BRINE device. Type of Heart Failure: Systolic and [...] while eating out. And the avoidance of Lao and barbecue re staurants to the high [...] post-implant, including frequency of follow up at [facility] and all future hos pitalizations at [facility], follow in device clinic if applicable, and frequent monito ring of INR Caregiver support, emphasizing learning LVAD system, assisting with care, flo ly sterile dressing changes and Caregiver(s) being present at [facility] before & after implant to learn these skills (total of 2 - 3 hours + daily dressing changes while in hospital). Informed family that teaching occurs Mon-Fri during daytime hours. Explained the the VAD device is placed in KSS and that a driveline would conn ect the blood pump, exit his abdomen, and connect to a computer called a distribution systems superintendent. The distribution systems superintendent must be connected to a power source [...] Stated he is interested in attending at [facility] in [place], [place]. Given brochure from program. I will [...] PATIENT NAME: Anabella Faye DATE: 01/08/2022 CPI: [id number] AGE: 71 y.o. : 1950 Principal Problem: [...] says dc am Would follow up with [facility] urologist next week for voiding trial Chris Butts 01/08/2022 12:48 PM Kavin, F.A.C.S. * Princess Echeverria LMSW - 01/08/2022 12:37 PM CDT Received call from [place] [facility] trainer, December, stating they are able to acce [...] of need for family to be to [facility] before 12:00 and he denied any concerns [...] agreed and will call pt's in the [facility] to finalize plans. Princess Echeverria, 01/08/2022 12:41 PM Ext. [phone] * Ori Colunga - 01/08/2022 10:38 AM [...] and education he has recei alexia at [facility]. He looks forward to fishing, helping his [...] and gratitude f or the team at [facility]. Spiritual care remains available as needed/requested. Spiritual Care Assessment Spiritual Care Assessment REFERRAL METHOD: Epic Consult REFERRAL SOURCE: Travel Assistant Rounding PRESENT FOR ENCOUNTER: Patient SPIRITUAL DISTRESS: [...] Ori Colunga, 01/08/2022 10:38 AM Voalte Number: [phone] On-Call Pager Number: [phone] * Ponce Fonseca MD - 01/08/2022 6:46 [...] and LE edema. Although he lives in [place], [place],he was visiting his son [facility] and ended up being admitted at the [facility] on 12/03/2021. Echo showed LVEF 10%, right pleural effusion(transudative on thoracentesis)with CLAYTON. He was diuresed and started on dobutamine infusion which improved symptoms and resulte d in 10 pound weight loss. He then developed atrial fibrillationand was star edward on anticoagulation. Due to poor cardiac function,he was transferred to [facility] for ischemic work-up. LHC showed no significant di sease.During this hospitalization he went into sustained VT requiring electr ical cardioversion and initiation of amiodarone infusion and then PO. Attempte d to start afterload reduction with lisinopril and spironolactone which led to A KI and hyperkalemia. Given the continued requirement of inotrope and inability t o optimize GDMT, [facility]. Cabezas events [...] Probable d/c tomorrow to rehab facility in [place] 2. Present for LVAD next week though would like to se if he improves with medic al therapy 3. ICD today (not SUPERVISOR BRINE per EP) 4. Add toprol 12.5 daily [...] Lab Units 01/08/22 1043 01/07/2271801/06/22 1020 01/05/22 02001/04/22 0600 SODIUM mEq/L 135* [...] days Lab Units 01/08/22 1043 01/07/2271801/06/22 1020 ALKALINE PHOSPHATASE U/L 123 114 120 [...] Triceps 5 5 Wrist extension 5 5 Air Cargo Specialist Supervisor 5 5 Iliopsoas 5 5 Quadriceps 5 [...] - 01/07/22 ADL Adaptive Equipment/Durable Medical Equipment Rib Bender Grooming Minimal Assistance Grooming Type of Task [...] the performing provider), current inpatient medication s, change management consultant notes, and is support analyst notes with pertainent findings noted with in [...] [facility] medically ready for discharge. He prefers to go to an [facility] [place], [place]. - Education provided about different levels of rehabilitation and appropriatenes s of decided upon disposition. - I have discussed the case with the following: another healthcare provider, soc iaviraj work, and attending PM&R staff physician. - Continue therapy efforts with PT/OT. - We will continue to follow and make recommendations as needed as the patient's needs may change from the date and time of this follow up. Nicol Hutchins, MSN, CONTROLLER INSTRUCTOR, AGNP-C [facility] Physical Medicine and Rehabilitation Pager [phone] * Debbie FAUSTO Workman - 01/07/2022 11:09 AM CDT CELI discussed [...] for SW to rehab out to [facility] acute rehab in [place] and [place] in [place] to determine if they will ac cept the pt's insurance and if they cover a portion of transportation. CELI notif ied the PMR YODIT that the pt prefers rehab out of town and she will evaluate the pt if needed but will not need a new consult. CELI spoke with Sheila from [facility] ([phone]) and confirmed they do not pr ovide transportation but do accept the pt's insurance. CELI called [facility] ([phone]) and left a voicemail with their l [...] vehicle depending on the type of car. SW faxed a referral to [facility] acute rehab at [phone]. Debbie Workman LMSW [phone] * Je KLAUDIA Torres - 01/07/2022 10:00 AM CDT Images from the original note were not included. Cardiac Electrophysiology Progress Note Hospital Day: 7 Chief complaint: VT Clinical summary: Mr. Faye is a 71-year-old male with a past medical history of hypertension, hyp erlipidemia, type 2 diabetes mellitus, COVID infection 09/27 and prostate cancer status post prostatectomy who was transferred from the [facility] in [place] on 12/15/2021 for advanced heart failure therapy evaluation. The patient had COVID-19 infection that did not require hospitalization in 2021. He then successfully underwent left knee arthroplasty in October 2021 . In the postoperative period, he was found to have worsening shortness of iraj th and lower extremity edema. He is from [facility] but was visiting [facility] at the end of November [...] been added and slowly titrated. TTE at [facility] with reduced LVEF and significant RV dilatation [...] Likely no benefit to be derived from SUPERVISOR BRINE implant - Recommend ICD implant for secondary [...] with primary cardiology team. Je Torres, RAF, LABOR RELATIONS SUPERVISOR-C OBJECTIVE: Vitals: Temp: [36.3 C (97.4 F)-36.7 [...] LE edema. Although he live s in [place], [place],he was [place] and ended u p being admitted at the [facility] on 12/03/2021. Echo showed LVEF 10%, ri ght pleural effusion(transudative on thoracentesis)with CLAYTON. He was diurese d and started on dobutamine infusion which improved symptoms and resulted in 10 pound weight loss. He then developed atrial fibrillation and was started on ant icoagulation. Due to poor cardiac function, he was transferred to [facility] for ischemic work-up. LHC showed [...] optimize GDM T, he was transferred to [facility] for evaluation of advanced HF the rapies. [...] stated he would not likely benefit from SUPERVISOR BRINE since he inman s IVCD and less than 150 EP recommendations: Recommend secondary prevention ICD before discharge from hospital. I have had a shared decision making discussion with the patient and reviewed the alternativ es, risks and benefits of the procedure and he wishes to proceed. Doesn't meet criteria for SUPERVISOR BRINE at this time and is unlikely to [...] 5. Mild aortic stenosis. 6. Mild MR. Mbgz-md-ldiabtxk TR. 7. Estimated central venous and PA [...] LE edema. Although he live s in [place], [place],he was [place] his [place] and ended u p being admitted at the [facility] on 12/03/2021. Echo showed LVEF 10%, ri ght pleural effusion(transudative on thoracentesis)with CLAYTON. He was diurese d and started on dobutamine infusion which improved symptoms and resulted in 10 pound weight loss. He then developed atrial fibrillation and was started on ant icoagulation. Due to poor cardiac function, he was transferred to [facility] for ischemic work-up. [facility] showed no significant disease. Luann martinez this hospitalization he went into sustained VT requiring electrical cardiovers ion and initiation of amiodarone infusion and then PO. Attempted to start afte rload reduction with lisinopril and spironolactone which led to CLAYTON and hyperkal emia. Given the continued requirement of inotrope and inability to optimize GDMT , he was transferred to [facility] for evaluation of advanced HF ther apiandrade. Cabezas events during this stay: -01/01: right [...] ventricular dilatation with severely reduced systolic function, eode-ai-yknfkkcl TR, full impression as note d below [...] with the patient/family. PPE Statement: Tanya Saul, SECURITY SOLUTIONS ARCHITECT used Yellow precautions (Level 1 mask worn [...] branch block with consideration by EP for SUPERVISOR BRINE. I spent 25 minutes in direct patient ca re for Anabella Faye. Tanya Saul 01/06/2022 STAFF ATTESTATION I, Maxine Song personally interviewed and examined Mr. Anabella Faye. I indep endently verified portions [...] sacubitril/valsartan Planning for EP evaluation to consider SUPERVISOR BRINE given his IVCD which is of a left bun dle Pattern We discussed him briefly at our multidisciplinary meeting, there is hope for imp roved medical therapy possibly SUPERVISOR BRINE, his RV potentially will be problematic in te una of decision therapy LVAD, however is not thought to be prohibitive. Patient is somewhat frail and deconditioned he has been in the hospital for over 3 weeks including his stay in [place]. We have asked both PT and PMNR [...] Daily Infusion medications: heparin 11.8 Units/kg/hr (01/06/22 3973) LVAD evaluation consultations: Infectious Disease Please obtain [...] to have 24-hour assistance upon returning ho mo in order for a safe transition. - [...] understanding that adequate transportation, and [facility] is needed during the post operative [...] of colonic polyps. -Will request records from-the [facility] in [place]. *Hepatobiliary screening *Elevated ALT *Mild hyperbilirubinemia 1.4 Suspect mild ALT elevation and hyperbilirubinemia secondary to congestive hepato diego. -Will await abdominal imaging and acute hepatitis panel results for any further recommendations. *Upper GI No red flag symptoms such as unintentional weight loss, dysphagia or persistent GERD that warrants upper endoscopy -Will request EGD records from the [facility] in [place] *Iron deficiency -Will need to see if [...] in September. He follows a t the [facility]. He did require admission for pneumonia at the [facility] following his COVID i nfection. He denies [...] Mild aortic jeferson nosis. 6. Mild MR. Jojk-yd-fntcutrg TR. 7. Estimated central venous and PA [...] can cer s/pprostatectomy who initially presented to [facility] with shortness of breath and LE swelling on 12/15[facility] [place]. In September 2021, he was infected with COVID-19 but did not require hospitalizati on.His symptoms included mild fatigue and loss of taste with no fever. He then successfully underwent left total knee arthroplasty in October 2021. In th e postoperative period he started to develop worsening shortness of breath and L E edema. [place] he lives in [place], [place] was visiting his son in [facility] and ended up being admitted at the [facility] on 12/03/2021. Ec ho showed LVEF 10%, right pleural effusion(transudative on thoracentesis)wit h CLAYTON. He was diuresed and started on dobutamine infusion which improved symptom s and resulted in 10 pound weight loss. He then developed AFIB and was started o n anticoagulation. Due to poor cardiac function he was transferred to [facility] for ischemic work-up. LHC showed no significant disease. Anishi ng this hospitalization he went into sustained [...] recovered - he was visiting family in [facility] when his son told him to go to the ER to be checked out [facility] and they sent him to [place] where they diagnosed him with HF Consults: [...] understanding that adequate transportation, and support [facility] is needed during the post operative [...] of colonic polyps. -Will request records from-the [facility] in [place]. *Hepatobiliary screening *Elevated ALT *Mild hyperbilirubinemia 1.4 Suspect mild ALT elevation and hyperbilirubinemia secondary to congestive hepato diego. -Will await abdominal imaging and acute hepatitis panel results for any further recommendations. *Upper GI No red flag symptoms such as unintentional weight loss, dysphagia or persistent GERD that warrants upper endoscopy -Will request EGD records from the [facility] in [place] *Iron deficiency -Will need to see if [...] in September. He follows a t the [place]. He did require admission for pneumonia at the [facility] following his COVID i nfection. He denies [...] RV dysfunction as well. Mild . [facility] completed today, report pending. [...] Negative Negative Hemoglobin Urine Negative Negative Specific Gould, UA 1.005 - 1.030 1.006 PH Urine [...] 5. Mild aortic stenosis. 6. Mild MR. Enhd-is-ekgvbqrs TR. 7. Estimated central venous and PA [...] prostate cancer, s/p prostatectomy around 2016 in [place]. O: Blood pressure 107/65, pulse 81, temperature [...] flow in the vertebral arteries. 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 [...] r s/p prostatectomy who initially presented [place] [facility] with shortness of corey ath and LE swelling on 12/15/2021 who is now transferred here from [facility] in [place] for advanced HF therapy evaluation. In September [...] LE e donnie. Although he lives in [place], [place] he was visiting his son in [facility] and ended up being admitted at the [facility] on 12/03/2021. Echo [place] wed LVEF 10%, right pleural effusion (transudative on thoracentesis) with CLAYTON. H e was diuresed and started on dobutamine infusion which improved symptoms and re sulted in 10 pound weight loss. He then developed AFIB and was started on antico agulation. Due to poor cardiac function he was transferred to [facility] for ischemic work-up. LHC showed no [...] 5. Mild aortic stenosis. 6. Mild MR. Xrwc-vc-xnogaznu TR. 7. Estimated central venous and PA [...] titrate GDMT while evaluating for LVA D. [place] out today and transition to PO diuretics tomorrow. TTF. #Acute Systolic/Diastolic HF and Cardiogenic Shock, SCAI C -NYHA class III, ACC AHA C -Echo findings as above; no significant valvular abnormalities; TAPSE 15; RV mod erately-severely dilated -Cr 1.4 > 1.3 > 1.0; C02 23 > 23; BUN 20 > 15 -[facility] OSH records w/o o significant obstructive [...] be a good candid ate for a SUPERVISOR BRINE therapy we will have EP see him prior to discharge ##pAF w [id number] = 4. Continue to monitor. On therapeutic [...] will be procured from his in the [facility] erin -Check lipid panel and A1c [...] 5:13 PM CDT Spiritual Care Progress Note Travel Assistant visited Anabella Faye to conduct an LVAD evaluation for Spiritual Wellnes yane Vallecillo grew up in [place], [place], moving to [place], [place] 28 years ago. 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 Anabella believes in God and follows the Jehovah'S Witness atilio. He understands that his heart is [...] Ori Colunga, 01/03/2022 5:14 PM Voalte Number: [phone] On-Call Pager Number: [phone] * Moshe Neely MD - 01/03/2022 4:47 PM CDT Prelminary cardiac MRI report. Final report to follow on Wednesday in [facility]. CONCLUSIONS: 1. Moderate left ventricular enlargement. [...] Normal caliber descending aorta without coarctation. Conventional vz7wvbo arch anatomy. Normal caliber main p ulmonary [...] r s/p prostatectomy who [facility] presented [place] [facility] with shortness of corey ath and LE swelling on 12/15/2021 who is now transferred here from [facility] in [place] for advanced HF therapy evaluation. In September [...] LE e donnie. Although he lives in [place], [place] he was visiting his son in [facility] and ended up being admitted at the [facility] on 12/03/2021. Echo [place] wed LVEF 10%, right pleural effusion (transudative on thoracentesis) with CLAYTON. H e was diuresed and started on dobutamine infusion which improved symptoms and re sulted in 10 pound weight loss. He then developed AFIB and was started on antico agulation. Due to poor cardiac function he was transferred to [facility] for ischemic work-up. LHC showed no [...] 5. Mild aortic stenosis. 6. Mild MR. Zzhw-sx-wgdlaguf TR. 7. Estimated central venous and PA [...] titrate GDMT while evaluating for LVA D. Halifax out today and transition to PO diuretics tomorrow. TTF. #Acute Systolic/Diastolic HF and Cardiogenic Shock, SCAI C -NYHA class III, ACC AHA C -Echo findings as above; no significant valvular abnormalities; TAPSE 15; RV mod erately-severely dilated -Cr 1.4 > 1.3 > 1.0; C02 23 > 23; BUN 20 > 15 -[facility] OSH records w/o o significant obstructive [...] be a good candid ate for a SUPERVISOR BRINE therapy we will have EP see him prior to discharge ##pAF w [id number] = 4. Continue to monitor. On therapeutic [...] will be procured from his in the [facility] -Check lipid panel and A1c DVT Ppx: [...] 1.4* -- -- -- -- Recent Labs 12/31/21204328/22 0025 01/02/22 0627 01/02/22 2358 01/03/22 0322 [...] Goode NP - 01/02/2022 8:53 AM CDT [facility] GASTROINTESTINAL PROGRESS NOTE Subjective: No acute events overnight. Pt had heart cath and is currently in ICU for cardiac monitoring via [place] Emelina. Denies any abdominal pain, nausea or [...] or edited the final report. READING SITE: [facility] Chest post line drain or airway placement Result Date: 01/01/2022 1. Support apparatus as described. No pneumothorax. 2. Similar to slightly worsening of pulmonary edema and dense basilar atelectasis. Superimposed pneumonia is not excluded. 3. Increased or redistributed right-sided layering pleural effusion with intrafissural fluid. Similar small left pleural effusion. READING SITE: [facility] Echo Complete with Doppler and Color Flow Result Date: 01/01/2022 1. Severe left ventricular dilatation. LVEDVI= 130 ml/m2. 2. Severely reduced left ventricular systolic function, with a calculated ejec tion fraction of 24%. 3. Global hypokinesis with some regional variability. 4. Severe right ventricular dilatation with severely reduced systolic function . 5. Mild aortic stenosis. 6. Mild MR. Rohz-pl-qjjsfdoq TR. 7. Estimated central venous and PA pressures are elevated. No previous study available for comparison. Dr. Justin Powers MD (Electronically Signed) Final Date: 01 January 2022 11:27 Physical Exam: General: awake, alert, NAD HENT: normocephalic, atraumatic, mucus membranes moist, right neck [place] Emelina Eyes: PERRL, anicteric Neuro: AOx3, ambulatory [...] r s/p prostatectomy who [place] [facility] [place] [facility] with shortness of corey ath and LE swelling on 12/15/2021 who is now transferred here from [facility] in [place] for advanced HF therapy evaluation. In September [...] LE e donnie. Although he lives in [place], [place] he was visiting his son in [facility] and ended up being admitted at the [facility] on 12/03/2021. Echo [place] wed LVEF 10%, right pleural effusion (transudative on thoracentesis) with CLAYTON. H abdiaziz was diuresed and started on dobutamine infusion which improved symptoms and re sulted in 10 pound weight loss. He then developed AFIB and was started on antico agulation. Due to poor cardiac function he was transferred to [facility] for ischemic work-up. LHC showed no [...] 5. Mild aortic stenosis. 6. Mild MR. Xpib-mn-lrhkzqcu TR. 7. Estimated central venous and PA [...] titrate GDMT while evaluating for LVA D. Halifax out today and transition to PO diuretics tomorrow. TTF. #Acute Systolic/Diastolic HF and Cardiogenic Shock, SCAI C -NYHA class III, ACC AHA C -Echo findings as above; no significant valvular abnormalities; TAPSE 15; RV mod erately-severely dilated -Cr 1.4 > 1.3 > 1.0; C02 23 > 23; BUN 20 > 15 -[facility] OSH records w/o o significant obstructive [...] 4 and Mag > 2 ##pAF w [id number] = 4. Continue to monitor. 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 : 1950 ADMISSION DATE: 12/31/2021 PRIMARY CARE PROVIDER: No primary care provider on file. HISTORY OF PRESENT ILLNESS: 71 y.o. male with baseline creatinine of unknown [facility] for LV AD evaluation. He [...] CATHETERIZATION; Surgeon: Mikel Goff MD; Locat ion: [facility] CV LAB; Service: Cardiology - Cardiac Intervention [...] Unger MD 81 mg at 0 01/01/22 132 atorvastatin (LIPITOR) tablet 20 mg 20 mg [...] reviewed ASSESSMENT/PLAN: 71 y.o. male presents to [facility] for LVAD evaluation. Nephrology consulted for [...] of progressive CKD up to and including POLICY LOAN CALCULATOR. Pending additional studies not yet resuled, no nephrology contraindication to LVAD. No new recommendations, we will sign off. Thank you for allowing us to participate in this patient's care. Electronically signed by Ginette Langston MD, FASN, FACP 01/02/2022 5:23 PM documented in this encounter H&P Notes * Mikel Goff MD - 12/31/2021 7:53 PM CDT Images from the original note were not included. [facility] Comprehensive Initial Note Date: 01/01/2022 Established [facility] patient: No PCP: No primary care provider on file. Chief complaint: SOB Note generated by: Mikel Goff HPI: Mr. Faye is a 71-year-old male with hypertension, hyperlipidemia, type 2 diabet es mellitus, COVID-19 infection in 09/2021 (not hospitalized), and prostate cance r s/p prostatectomy who [facility] [place] [facility] with shortness of corey ath and LE swelling on 12/15/2021 who is now transferred here from [facility] in [place] for advanced HF therapy evaluation In September [...] LE e donnie. Although he lives in [place], [place] he was visiting his son in [facility] and ended up being admitted at the [facility] on 12/03/2021. Echo [place] wed LVEF 10%, right pleural effusion (transudative on thoracentesis) with CLAYTON. H e was diuresed and started on dobutamine infusion which improved symptoms and re sulted in 10 pound weight loss. He then developed A. fib and was started on anti coagulation. Due to poor cardiac function he was transferred to [facility] for ischemic work-up. LHC showed no [...] reduced to about 6 pack a w tangirnaq. No significant family history of cardiac disease except for his father who had a OH in his 70s. Since his COVID infection [...] or edited the final report. READING SITE: [facility] Echo Complete with Doppler and Color Flow Result Date: 01/01/2022 1. Severe left ventricular dilatation. LVEDVI= 130 ml/m2. 2. Severely reduced left ventricular systolic function, with a calculated ejec tion fraction of 24%. 3. Global hypokinesis with some regional variability. 4. Severe right ventricular dilatation with severely reduced systolic function . 5. Mild aortic stenosis. 6. Mild MR. Ikuo-ao-xnfjhxyj TR. 7. Estimated central venous and PA [...] 100 pg/mL Final No results found for: NDGXOUQMRD4M, LTCUTGVNBB0C, IBSRDYZPM8ED, QXPMHEKAEK4K, TR NBHIMZD1XB Lab Results Component Value Date HGBA1C 6.7 (H) 12/31/2021 Coronary angiogram: Date: 12/22/2021 Reported to be nonobstructive disease. 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 He was found to have EF 10% by echo. He had thoracentesis for R pleural effusion. He had CLAYTON, and was diuresed with dobutamine for inotropic support. He developed AFib and was placed on AC. HE was transferred to [facility], where tl ogram showed non-obstructive CAD. He [...] 55/30 (38), PCWP 25, Kaela CO/CI (on NEW GRAD RN 5) 6.0/2.4 , PVR 2.2 HILL Echo 01/01 1. Severe left ventricular dilatation. LVEDVI= 130 ml/m2. 2. Severely reduced left ventricular systolic function, with a calculated ejecti on fraction of 24%. 3. Global hypokinesis with some regional variability. 4. Severe right ventricular dilatation with severely reduced systolic function. 5. Mild aortic stenosis. 6. Mild MR. Evhw-ev-hmdlrcnj TR. 7. Estimated central venous and PA [...] can likely stop (no h/o CVA or OH) - SSI for DM2/glucose control. Would be [...] from the original note were not included. [facility] Electrophysiology Consult Date: 01/06/2022 Established [facility] patient: No PCP: No primary care provider on file. Case discussed with Requesting Physician : Yes Requesting Physician: Dr. Fonseca Reason for consult: VT, possible SUPERVISOR BRINE Note generated by: Esthela Oakes DO HPI: Mr. Faye is a 71-year-old man with a history of hypertension, hyperlipidem ia, type 2 diabetes mellitus, COVID infection 09/27 and prostate cancer status po st prostatectomy who was transferred from the [facility] in [facility] on 12/15/2021 for advanced heart failure therapy evaluation. The patient had COVID-19 infection that did not require hospitalization in 2021. He then successfully underwent left knee arthroplasty in October 2021 . In the postoperative period he was found to have worsening shortness of breat h and lower extremity edema. He is from [facility] but was visiting [facility] at the end of November when he [...] been added and slowly titrated. TTE at [facility] with reduced LV EF and significant RV [...] CATHETERIZATION; Surgeon: Mikel Goff MD; Locat ion: [facility] CV LAB; Service: Cardiology - Cardiac Intervention [...] other findings please see above. READING SITE: [facility] [employer] [place] CT Chest wo contrast Result Date: 01/02/2022 1. Moderate right and small left pleural effusions with associated right worse than left bibasilar relaxation atelectases. 2. No discrete focal consolidation or concerning pulmonary nodule or mass. 3. Coronary and aortic atherosclerosis. Scattered calcifications of the aortic valve leaflets for which some degree of aortic stenosis is suspected. [facility] Abdomen complete Result Date: 01/01/2022 Gallbladder [...] flow in the vertebral arteries. READING SITE: [facility] Chest single view frontal Result Date: 01/01/2022 1. Right greater than left perihilar and bibasilar heterogeneous opacities, likely representing moderate interstitial pulmonary edema. Superimposed infection or aspiration is not excluded. 2. Small right greater than left pleural effusions. 3. Cardiomegaly. ATTESTATION STATEMENT: The Staff Radiologist has personally reviewed the images and dictated, reviewed, or edited the final report. READING SITE: [facility] Chest post line drain or airway placement Result Date: 01/01/2022 1. Support apparatus as described. No pneumothorax. 2. Similar to slightly worsening of pulmonary edema and dense basilar atelectasis. Superimposed pneumonia is not excluded. 3. Increased or redistributed right-sided layering pleural effusion with intrafissural fluid. Similar small left pleural effusion. READING SITE: [facility] Echo Complete with Doppler and Color Flow Result Date: 01/01/2022 1. Severe left ventricular dilatation. LVEDVI= 130 ml/m2. 2. Severely reduced left ventricular systolic function, with a calculated ejec tion fraction of 24%. 3. Global hypokinesis with some regional variability. 4. Severe right ventricular dilatation with severely reduced systolic function . 5. Mild aortic stenosis. 6. Mild MR. Bzxo-cp-fvufxdig TR. 7. Estimated central venous and PA [...] found for: BNP No results found for: BIDKYJBDDS5P, AHKLLHHBZL7X, FKYHGTKSJ9CB, QQYRNMUDUR8F, TR NZHZXEB5FO Lab Results Component Value Date HGBA1C 6.9 [...] 5. Mild aortic stenosis. 6. Mild MR. Bpzi-bk-rdplqyaq TR. 7. Estimated central venous and PA [...] the research team. 3. Paroxysmal atrial fibrillation -NHLKL9ILAR of 4 (age, HF, HTN, DMII). Agree [...] wishes to proceed. Doesn't meet criteria for SUPERVISOR BRINE at this time and is unlikely to [...] pt lives a few hours from [facility]. Full note to follow. Princess Echeverria, 01/02/2022 3:34 PM Ext. [phone] * Princess Echeverria LMSW - 01/02/2022 3:11 PM CDTAssociated Order(s): CONSULT TO CARE PROGRESSION; CONSULT TO CARE PROGRESSION; CONSULT TO CARE PROGRESSION; CONSULT TO CARE PROGRESSION; CONSULT TO CARE PROGRESSION Consults received for DC planning and medication benefit check. GENI CRUZ completed benefit check for Jardiance and Entresto through [facility]. Each medication tiesha l cost $11. CELI called the [facility] to confirm as pt states he usually does not have a copay. Per pharmacy, Jardiance usually requires a PA, however cost will not exceed $11 for medications. She recommended [facility] the event they are needed. SW to notify HF YODIT. Princess Echeverria, 01/02/2022 3:16 PM Ext. [phone] * Aditi Copeland MD - 01/02/2022 12:22 PM CDTAssociated Order(s): IP CONSULT TO INFECTIOUS DISEASE [facility] INFECTIOUS DISEASE CONSULTATION NAME: Anabella Faye [...] tablet 25 mcg 25 mcg Oral Daily Gifyt Unger MD 25 mcg at 01/02/22 0627 [...] CATHETERIZATION; Surgeon: Mikel Goff MD; Locat ion: [facility] CV LAB; Service: Cardiology - Cardiac Intervention [...] Currently Sexual activity: Not Currently Born in [place], lived in [facility], no travel outside [facility], no known exposure to TB, does not [...] Clean Catch - RAINBOW DRAW HOLD SPECIMENS [place] Draw/Extra Tube Hold Specimen Extra Urine Specimen in [place] Tube Collection Time: 01/01/22 10:57 PM Specimen: Urine Clean Catch - RAINBOW DRAW HOLD SPECIMENS [place] Draw/Extra Tube Hold Specimen CULTURE SUMMARY: Not [...] CONSULT TO UROLOGY UROLOGY CONSULTATION Patient: Anabella Fyae Age: 71 y.o. : 1950 DATE OF CONSULTATION: January 02, 2022 CHIEF COMPLAINT: Pre-LVAD evaluation. HPI: Pt is a 71 y/o male with heart failure admitted for LVAD evaluation. Note s a h/o prostate cancer and prostatectomy around 2016 in [place]. Does not leak urine at home. Feels he voids fine. Denies hematuria. PMH: Past Medical History: Diagnosis Date Atrial fibrillation (HCC) Cancer (HCC) Cardiomyopathy (HCC) CHF (congestive heart failure) (HCC) Diabetes mellitus (HCC) PSH: Past Surgical History: Procedure Laterality Date CATHETERIZATION, HEART, RIGHT N/A 01/01/2022 Procedure: RIGHT HEART CATHETERIZATION; Surgeon: Mikel Goff MD; Locat ion: [facility] CV LAB; Service: Cardiology - Cardiac Intervention [...] 01/01/2022 10:57 PM Negative Negative Final Specific [place] Urine Date/Time Value Ref Range Status 01/01/2022 [...] or edited the final report. READING SITE: [facility] XR Chest post line drain or airway placement Result Date: 01/01/2022 1. Support apparatus as described. No pneumothorax. 2. Similar to slightly worsening of pulmonary edema and dense basilar atelectasis. Superimposed pneumonia is not excluded. 3. Increased or redistributed right-sided layering pleural effusion with intrafissural fluid. Similar small left pleural effusion. READING SITE: [facility] Echo Complete with Doppler and Color Flow Result Date: 01/01/2022 1. Severe left ventricular dilatation. LVEDVI= 130 ml/m2. 2. Severely reduced left ventricular systolic function, with a calculated ejec tion fraction of 24%. 3. Global hypokinesis with some regional variability. 4. Severe right ventricular dilatation with severely reduced systolic function . 5. Mild aortic stenosis. 6. Mild MR. Ocun-gj-kxlmhljn TR. 7. Estimated central venous and PA [...] IP CONSULT TO PHYSICAL MEDICINE AND REHABILITATION [facility] 01/02/2022 Patient Identification Patient's Name: Anabella Faye DOB: 1950 Admit Date: 12/31/2021 Attending Provider: Maxine [...] and CLAYTON. He was referr ed to [facility] for advanced heart failure therapy evaluation includin [...] CATHETERIZATION; Surgeon: Mikel Goff MD; Locat ion: [facility] CV [facility]; Service: Cardiology - Cardiac Intervention [...] extensi on, wrist extension, finger abduction and tail worker. 5/5 in bilateral lower extremiti es with [...] the performing provider), current inpatient medication s, change management consultant notes, and is support analyst notes with pertainent findings noted with in [...] any questions or concerns. Nicol Hutchins, MSN, CONTROLLER INSTRUCTOR, AGNP-C Physical Medicine and Rehabilitation [facility] Pager [phone] * Magdaleno Hallman RN - 01/02/2022 7:24 AM CDTAssociated Order(s): IP CONSULT TO HOSPICE AND PALLIATIVE MEDICINE [facility] PALLIATIVE MEDICINE SERVICE INITIAL CONSULTATION/ASSESSMENT PATIENT NAME: Anabella Faye ADMISSION DATE: 12/31/2021 CONSULT DATE: 01/02/2022 ROOM: [place] [id number] CPI: [id number] AGE: 71 y.o. : 1950 PRIMARY CARE [...] and CLAYTON. 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 Patient lists his support and living situation as living with his spouse, and th at he has two children who are a big support. Mr. Faye does not have ACP documents on file with [facility]. P rovided patient with ACP documents, and explained the importance in completing t o designate one or more people as their Durable Power of Property Field Adjuster (DPOA). Encour aged the patient to read [...] understanding that adequate transportation, and support from [facility] is needed during the post operative [...] 5:16 PM CDTAssociated Order(s): PSYCHIATRY CONSULT Attending Crtts Physician Psychiatry Evaluation ID: Anabella Faye is a 71 y.o. male who lives [address] [place] [id number]. CC: LVAD History of Present Illness: Patient [...] son Education level: HS Employment Status: Has [employer] Legal Issues: Denies : [employer] for 3 years Pentecostal preference: Jehovah'S Witness Substance use: Denies tobacco, alcohol, or drug [...] and judgment are f air. Diagnosis: No [place] I diagnosis Impression: Anabella Faye is a [...] AM CDTAssociated Order(s): IP CONSULT TO NEPHROLOGY [facility] NEPHROLOGY CONSULT NOTE NAME: Anabella Faye CPI: [id number] AGE: 71 y.o. : 1950 ADMISSION DATE: 12/31/2021 PRIMARY CARE PROVIDER: No primary care provider on file. HISTORY OF PRESENT ILLNESS: 71 y.o. male with baseline creatinine of unknown [facility] [place] [facility] [place]. He has a past medical history of atrial fibrillation, prostate ca ncer s/p prostatectomy, DMT2, HLD, alcohol use, COVID infection in 09/2021, and r ecent diagnosis of HF. [facility] revealed his HF etiology as non-ischemic. [...] reviewed ASSESSMENT/PLAN: 71 y.o. male presents to [facility] for LVAD evaluation. Nephrology consulted for [...] medications. Electronically signed by Ginette Langston MD, JOSÉ, FACP 01/01/2022 2:36 PM * Tani Brady [...] that he had to be admitted to [facility] on 12/03 with dyspnea, LE edema and EF of 10%. He was then transferred to [facility] for a heart cath which showed no ob structive CAD. He was subsequently transferred to [facility] for advanced HF therapies. ROS: He states [...] 5. Mild aortic stenosis. 6. Mild MR. Vlqu-xh-fksmzrdh TR. 7. Estimated central venous and PA [...] in this patient's care. Edson Brady MD [facility] Interventional Pulmonology, Pulmonology, and Critical Care [facility] * Hamzah Goode NP - 01/01/2022 10:33 AM CDTAssociated Order(s): IP CONSULT TO GASTROENTEROLOGY [facility] GASTROINTESTINAL CONSULT NOTE Patient: Anabella [...] 5 mcg/kg/min (Order-Specif ic) Intravenous Continuous Susan Ccaeres MD 18.15 mL/hr at 12/31/212201 5 mcg /kg/min at 12/31/212201 docusate sodium (COLACE) capsule 100 mg 100 mg Oral BID PRN Susan Cacrees MD finasteride (PROSCAR) tablet 5 mg 5 [...] 20 mEq 20 mEq Or al PRN Susna Cacrees MD Or potassium chloride 10 mEq in [...] or edited the final report. READING SITE: [facility] PRIOR ENDOSCOPY RESULTS: Reported normal EGD on colonoscopy approximately 2 years ago performed at the [facility] in [place] ASSESSMENT/PLAN: Mr. Anabella Faye is a pleasant 71-year-old male currently admitted with acute on chronic heart failure and LVAD evaluation. GI consult as part of this evalua tion *Colorectal screening -Reports colonoscopy 2 years ago which was normal. No family history. No histo ry of colonic polyps. -Will request records from-the [facility] in [place]. *Hepatobiliary screening *Elevated ALT *Mild hyperbilirubinemia 1.4 Suspect mild ALT elevation and hyperbilirubinemia secondary to congestive hepato diego. -Will await abdominal imaging and acute hepatitis panel results for any further recommendations. *Upper GI No red flag symptoms such as unintentional weight loss, dysphagia or persistent GERD that warrants upper endoscopy -Will request EGD records from the [facility] in [place] *Iron deficiency -Will need to see if [...] assessment and recommendations as detailed by [facility] Practice Provider. I also reviewed relevant imaging and laboratory studies. I agree with the assessment, recommended evaluation/studies, and treatment plan as detailed. * Tanya Solorzano NP - 01/01/2022 10:02 AM CDTAssociated Order(s): IP CONSULT TO CARDIOVASCULAR SURGERY ([facility] ONLY) [facility] Cardiothoracic and Vascular E&M Date: 01/01/2022 Chief Complaint: Shortness of breath and edema PCP: No primary care provider on file. Requesting Physician: Dr. Song Reason for consult: LVAD evaluation HPI: Mr. Faye is a 71 year old male transferred from [facility] in [place] for advanced heart failure therapy evaluation. He resides in [place], [place]. PMH includes HTN, HLD, type II [...] He was vi siting his son in [place], [place] in mid November [facility] [place] [facility] He was admitted with heart failure. Echo [...] wa s subsequently transferred to [facility] for ischemic evaluati on. He underwent left [...] to moderate TR. [facility] CTS has been [...] 5. Mild aortic stenosis. 6. Mild MR. Ndge-ii-bktmuvtt TR. 7. Estimated central venous and PA [...] with further recommendations to follow. Thank brock for allowing us to participate in the care of your patient. SHIVA Alas 01/01/2022 11:24 AM Associated attestation - Niurka Hayden MD - 01/01/2022 2:00 PM CDT Agree with note above. 71 y/o M who was transferred here for advanced heart ther apies evaluation. She has a history of HTN, HLD, DM and recent covid infection i n September. He follows at the [facility]. He did require admission for pneumonia at [...] RV dysfunction as well. Mild . [facility] completed today, report pending. [...] AM CDTAssociated Order(s): IP CONSULT TO ENDOCRINOLOGY [facility] ENDOCRINOLOGY CONSULT NOTE Patient: Anabella [...] post prosta tectomy. He presented to an [facility] with shortness of breath and significan [...] tablet 250 mcg 250 mcg Oral QPM Ssuan Caceres MD 250 mcg at 12/31/212208 DOBUTamine [...] mL/hr at 01/01/229 16.5 Units/kg /hr at 01/01/229 insulin lispro (HumaLOG) injection 1-6 Units 1-6 [...] Final TOTAL T4: No results found for: W2PRFSV TOTAL T3: No results found for: TT3 [...] 10:42 AM CDT Anabella Faye, transferred [facility] to unit 618 at 1040 . The [...] mep ilex applied. Pictures taken, in chart. Halifax at appx. 61cm, site D/I. IV's in left arm intact. Oriented to CICU room, call light in reach. Dr. Unger moe re of adm. To CICU #4. documented in this encounter Miscellaneous Notes * Nursing Discharge - Mercedes Martinez RN - 01/09/2022 12:18 PM CDT Nursing Discharge Note Patient discharged this afternoon to [facility] in [place]. Report called to Lola at the facility. [...] transport pt to rehab facility. Spoke to rehab trainer, December, and confirmed pt's DC. SW will call her back with confirmed DC time when pt leaves the hospital. SW confirmed with December that they have a urologist on staff that can complete voiding trial as recommended by [facility] Urologist. CELI also confirmed that at time [...] and staff. Patient will discharge to: [facility] Acute Rehab Transportation: Family Discharge Time: 12:00 Special Instructions: None. [facility] Rehab: P: [phone] F: [phone] Princess Echeverria, 01/09/2022 10:41 AM Ext. [phone] * Therapy Note - Reyna Rangel DPT [...] Torres NP - 01/09/2022 9:13 AM CDT [facility] Electrophysiology Device Sign-Off Note Name: Anabella Faye CPI: [id number] Date of : 1950 Primary care physician: [...] y.o. male who is currently admitted to [facility] under the heart failure service. We were consulted for ve ntricular tachycardia and consideration of SUPERVISOR BRINE device. In that setting, plan was made for implantation of a(an) defibrillator for the p urposes of secondary prevention of sudden cardiac arrest. The patient underwent placement of the device and tolerated procedure well. The device and lead inform ation, including the device settings are listed below. Device Implant Summary: Devices ICD Implant Defibrillator Evera Mri Dr Xt [id number] - [id number] - Implanted (Left ) Chest Inventory item: IMPLANT DEFIBRILLATOR EVERA MRI DR XT [id number] Model/Cat number: [id number] Serial number: [id number] Grader Green Meat: MEDTRONIC CARDIAC RHYTHM MGMT Lot number: [id number] Area/Chamber: Chest Laterality: Left Implant Date: 01/08/2022 As of 01/08/2022 Status: Implanted Mode: MVP Lower Rate: 50 Upper Rate: 130 Lead Implant Lead Sprint Quattro 62cm Secure S [id number] - [id number] - Implanted He art Ventricle Inventory item: IMPLANT LEAD SPRINT QUATTRO 62CM SECURE S [id number] Model/Cat num katie: [id number] Serial number: [id number] Grader Green Meat: MEDTRONIC CARDIAC RHYTHM MGMT Lot number: [id number] Area/Chamber: Heart Ventricle Implant Date: 01/08/2022 As of 01/08/2022 Status: Implanted Location: RV Sensing Threshold (mV): 6.8 Slew Rate (V/s): 2.6 Pacing Impedance (ohms): 559 Capture Threshold (V): 0.5 Capture Threshold (mA): 1.1 Implant Lead Pacemaker Atrial/Ventricle 52cm Capsure Fix Novus 4076-52 - [id number] - Implanted (Right) Heart Atrium Inventory item: IMPLANT LEAD PACEMAKER ATRIAL/VENTRICLE 52CM CAPSURE FIX NOVUS 4076-52 Model/Cat number: [id number] Serial number: [id number] Grader Green Meat: MEDTRONIC CARDIAC RHYTHM MGMT Lot number: [id number] Area/Chamber: Heart Atrium Implant Date: 01/08/2022 As [...] care of this patient. Je Torres DNP, LABOR RELATIONS SUPERVISOR-C * Nutrition Note - Azeb Flores, MELODY - 01/09/2022 8:41 AM CDT Nutrition Length of Stay [facility] Patient: Anabella Faye Age: 71 y.o. : [...] time. Plan to transfer to rehab in [facility] today . Goals per Patient [...] Quiñones MD - 01/08/2022 1:01 PM CDT [facility] Pre-Sedation Assessment H&P Update Chief complaint/ [...] base of the uv hemanth are visible [facility] Clinical Frailty Scale: Vulnerable - While [...] home at this time and would theref [facility] recommend post-acute care placement at d/c. [...] home at this time and would theref [facility] recommend post-acute care placement at d/c. * Therapy Note - Brian Surjit, OT - 01/07/2022 9:15 AM CDT 01/07/22 0915 Visit Type Visit Type Treatment OT Visit Info Initial OT Visit On 01/06/22 OT Received On 01/07/22 OT Visit # 2 Precautions Fall Risk Yes Supplemental Oxygen on RA ADL Adaptive Equipment/Durable Medical Equipment Rib Bender Grooming Minimal Assistance Grooming Type of Task [...] Home Assistive Device Rolling walker Adaptive Equipment/DME Rib Bender;Sock aid;Long-handled shoe horn;Dressing stick Prior Function Level of [place] Independent with ADLs;Independent with functional transfer s;Independent [...] prior to admission Prior Function Level of [place] Independent with ADLs;Independent with functional transfer s;Independent with ambulation;Independent with homemaking Receives Help From Family 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 Query Respons e Note PATIENT: ANABELLA FAYE : 1950 ADMIT DATE: 12/31/2021 7:01 PM DISCH DATE: RESPONDING PROVIDER #: [id number] RESPONSE TEXT: The patient has a history [...] ction. Covid swab + this admission to [facility] Per pulm- History of COVID infection He [...] and Plan of Care Pt came to [facility] from outside hospital for LVAD workup. Pt [...] - 01/02/2022 3:09 PM CDT Nutrition Assessment [facility] DIAGNOSIS & INTERVENTION: DIAGNOSIS 1 Nutrition Diagnosis [...] of Care Received pt just after 1400. [place] in place. Pt resting in bed, at [...] any c/o pain, tylenol for pain at swan site Goals/Plan for Hospital Stay Patient/Family stated [...] his medications from the [facility] ne: [phone], fax: [phone]. Both Entresto and Jardiance are on formula ry at the [place], and will be $11 each. Recommnend sending a script for a 14 day supply of each to the [facility] at discharge, so that patient can discharge with some, and send a script to the [facility] as well. [facility] will mail the medication to the [...] His PCP is Brian Madera at the [facility]. Dr. Fitzpatrick at the [facility] orders his medications. Patient Information [...] Nurse Only Cardiology Anali Herr MD [address] [place] [address] 02/09/2022 Telephone Cardiology Vanessa Phillip FNP [address] [place] [address] 04/16/2022 Office Visit Cardiology 04/16/2022 Nurse Only [...] 5:27 AM CDTThis note is in progress. 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1950 Requested By: ANALI HERR Order Number: [id number] Reading MD: Harvinder ts Intervals [place] Rate: 82 P: 215 FL: 72 QRS: -68 QRSD: 148 T: 95 QT: 440 QTc: 514 Interpreti ve Statements Sinus or ectopic atrial rhythm Ventricula r premature complex Short FL interval Nonspecifi c IVCD with LAD Inferior [...] ANABELLA FAYE Sex#: M #: 1950 Sera#: [id number] Location: [address] H618-01 Ordering Provider: CHUCK QUIÑONES Procedure Requested: [id number] XR CHEST 2 VIEWS (PA AND LATERAL) [...] ANABELLA FAYE Sex#: M #: 1950 Sera#: [id number] Location: [address] H618-01 Ordering Provider: CHUCK QUIÑONES Procedure Requested: [id number] XR CHEST 2 VIEWS (PA AND LATERAL) [...] 19 Chuck Quiñones MD IMG DIAGNOSTIC IMAGING JENY HONG * (ABNORMAL) GLUCOSE POC (01/09/2022 8:33 [...] City/State/ZIP Code Phone Number [place] [address] * (ABNORMAL) Complete Blood Count (01/09/2022 6:14 [...] City/State/ZIP Code Phone Number [place] [address] * (ABNORMAL) Comprehensive Metabolic Panel (01/09/2022 [...] Comment: Reference range updated 06/29/[address] [facility] conversion to Koudai instrumentation. Bilirubin Total 1.00 0.20 - 01/09/2022 [facility] 1.10 7:36 AM mg/dL CDT Blood Urea Nitrogen 11 9 - 23 01/09/2022 [facility] mg/dL 7:36 AM CDT Creatinine 1.10 0.70 - 01/09/2022 [facility] 1.30 7:36 AM mg/dL CDT eGFR 71.3 60.0 - 01/09/2022 [facility] 200.0 7:36 AM mL/min/1 CDT .73m*2 Comment: The National Kidney Foundation and the [place] Society of Nephrology (NKF-ASN) recommends using the [...] City/State/ZIP Code Phone Number [place] [address] [place] [address] * Electrocardiogram (ECG) (01/09/2022 5:25 AM CDT) [...] Narrative TRACEMASTER - 01/09/2022 2:59 PM CDT [facility] Test Date: 2022-01-09 Pat Name: ANABELLA MALLIE Department: [facility] Room: 18 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: 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 : 1950 Requested By: CHUCK QUIÑONES Order Number: [id number] Reading MD: Anna Quintanilla Measurements Intervals [place] Rate: 83 P: 0 FL: QRS: -68 QRSD: 159 T: 89 QT: 427 QTc: 502 Interpretive Statements Uncertain rhythm: review possible ACCELERATED JUNCTIONAL RHYTHM Nonspecific IVCD with LAD Inferior infarct, old Anteroseptal infarct, age indeterminate Electronically Signed On 01-09-2022 14:59:15 CDT by Anna Quintanilla Procedure Note Anna Quintanilla MD - 01/09/2022 [facility] Test Date: 2022-01-09 Pat Name: ANABELLA MALLIE Department: [facility] Room: H618 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: [id number] : 1950 Requested By: CHUCK QUIÑONES Order Number: [id number] Reading MD: Anna Quintanilla Measurements Intervals [place] Rate: 83 P: 0 FL: QRS: -68 QRSD: 159 T: 89 QT: [...] City/State/ZIP Code Phone Number [place] [address] [facility] [address] [place] [address] * ICD INSERTION DUAL, UPPER EXTREMITY VENOGRAM (01/08/2022 3:06 PM CDT) Modality Anatomical Region Laterality Cardiac Electrophysiology Anatomical Location / Laterality Collection Method / Volume Smitha ection Time Received Time Specimen (Source) Narrative 01/08/2022 3:25 PM CDT [facility] CARDIAC ELECTROPHYSIOLOGY SERVICE OPERATIVE REPORT Date of Procedure: 01/08/2022 PREOPERATIVE DIAGNOSES: Sustained ventricular tachycardia POSTOPERATIVE DIAGNOSES: Status-post dual chamber implantable cardioverter defibrillator (ICD) implantation PROCEDURES PERFORMED: 1. Left upper extremity venogram. 2. ICD implantation. ATTENDING WALL STEAMER: Anali Herr MD FELLOW WALL STEAMER: Dr. Chuck Quiñones ESTIMATED BLOOD LOSS: <5 [...] the modified Seldinger technique, 7 and 9 German peel away sheaths were placed in the [...] dressing. DEVICE DATA: Devices ICD Implant Defibrillator Yvette Lyons Dr Jean-Baptiste [id number] - [id number] - Implanted (Left) Chest Inventory item: IMPLANT DEFIBRILLATOR EVERA JORDIN DR JEAN-BAPTISTE [id number] Model/Cat number: [id number] Serial number: [id number] Grader Green Meat: MEDShopS[employer]/Ownza CARDIAC RHYTHM MGMT Lot number: [id number] Area/Chamber: Chest Laterality: Left Implant Date: 01/08/2022 As of 01/08/2022 Status: Implanted Mode: MVP Lower Rate: 50 Upper Rate: 130 Lead Implant Lead Sprint Quattro 62cm Secure S [id number] - [id number] - Implanted Heart Ventricle Inventory item: IMPLANT LEAD SPRINT QUATTRO 62CM SECURE S [id number] Model/Cat number: [id number] Serial number: [id number] Grader Green Meat: MEDTRONIC CARDIAC RHYTHM MGMT Lot number: [id number] Area/Chamber: Heart Ventricle Implant Date: 01/08/2022 As of 01/08/2022 Status: Implanted Location: RV Sensing Threshold (mV): 6.8 Slew Rate (V/s): 2.6 Pacing Impedance (ohms): 559 Capture Threshold (V): 0.5 Capture Threshold (mA): 1.1 Implant Lead Pacemaker Atrial/Ventricle 52cm Capsure Fix Novus 4076-52 - [id number] - Implanted (Right) Heart Atrium Inventory item: IMPLANT LEAD PACEMAKER ATRIAL/VENTRICLE 52CM CAPSURE FIX NOVUS 4076-52 Model/Cat number: [id number] Serial number: [id number] Grader Green Meat: MEDTRONIC CARDIAC RHYTHM MGMT Lot number: [id number] Area/Chamber: Heart Atrium Implant Date: 01/08/2022 As [...] 01/07/2022 VYAIRE 87.26 % 1:22 PM CDT DNT99-06% (pre) 1.57 1.04 - 01/07/2022 VYAIRE 4.54 [...] 49 % 01/07/2022 VYAIRE 1:22 PM CDT NIV4BXU (pre%PRED) 105 % 01/07/2022 VYAIRE 1:22 PM CDT NHM46-31 (pre%PRED) 63 % 01/07/2022 VYAIRE 1:22 PM [...] Possible restriction Narrative 01/07/2022 2:18 PM CDT [facility] Measurement date01/07/22 Pulmonary Function Report - SPIROMETRY [...] City/State/ZIP Code Phone Number Performing Address Organization [place], [place] [address] [place] [address] * COVID-19 Diagnostic PCR (PUI) (01/05/2022 5:31 PM CDT) Pathologist Signature Component Value Ref Test Method Analysis Performed A t Range Time SARS-COV-2 PCR Negative Negative 01/06/2022 [facility] 6:39 AM CDT Anatomical Location / Laterality Collection Method / Volume Smitha ection Time Received Time Specimen (Source) Non-Blood Collection / Unknown 01/05/2022 5:31 PM CDT 01/05/2022 6:00 PM CDT Swab (NASOPHARYNGEAL SWAB) Narrative [facility] - 01/06/2022 6:39 AM CDT This RT-PCR test has been authorized by the FDA under an Emergency Use Authorization (EUA) for use by authorized laboratories. Ponce Fonseca MD MICROBIOLOGY - [facility] City/[facility]/ZIP Code Phone Number Performing Address Organization [place], [place] [address] [place] [address] * US Carotid Duplex bilat (01/03/2022 8:53 [...] in the vertebral art eries. READING SITE: [facility] 01/03/2022 9:25 AM CDT Patient: ANABELLA FAYE Sex#: Randal #: 1950 Sera#: [id number] Location: [place] [id number] Ordering Provider: AGNES UNGER Procedure Requested: [id number] US CAROTID DUPLEX BILAT Reason for Exam: [...] ANABELLA FAYE Sex#: M #: 1950 Sera#: [id number] Location: [address] H618-01 Ordering Provider: AGNES UNGER Procedure Requested: [id number] US CAROTID DUPLEX BILAT Reason for Exam: [...] in the vertebral sara colleen. READING SITE: [facility] Agnes Unger MD CV VASCULAR ORDERABLES * [...] 01/06/2022 3:41 PM CDT NAME: Anabella Faye :[id number] GENDER:M [facility] CPI:[id number] [place] [facility] NUM:[id number] TEST:Cardiac MRI with and without contrast and Imaging Flow Velocity Map TEST DATE: TEST LOCATION:L PATIENT STATUS:I REFERRING PHYSICIAN:Oralia Avelar MD REASON FOR TEST:Evaluate NICM(Unspecified NICM) PROCEDURE NOTE: Patient was imaged on the Stonefort RU059m 1.5T magnet scanner. A total of 40ml [...] Normal caliber descending aorta without coarctation. Conventional vm6mmlg arch anatomy. Normal caliber main pulmonary artery. [...] Moshe Neely MD. Moshe Neely MD [address], [address] [place] [address] DICTATED:2022-01-03 16:05:11.0 TRANSCRIBED:2022-01-06 12:55:15.0 PROVIDER APPROVAL:2022-01-06 15:01:45.0 Procedure Note Moshe Neely MD - 01/06/2022 NAME: Anabella Faye :[id number] GENDER:M [facility] CPI:[id number] [facility][id number] TEST:Cardiac MRI with and without contrast and Imaging Flow Velocity Map TEST DATE: TEST LOCATION:L PATIENT STATUS:I REFERRING PHYSICIAN:Oralia Avelar MD REASON FOR TEST:Evaluate NICM(Unspecified NICM) PROCEDURE NOTE: Patient was imaged on the Stonefort PK016i 1.5T magnet scanner. A total of 40ml [...] Normal caliber descending aorta without coarctation. Conventional ee1rwve arch anatomy. Normal caliber main pulmonary artery. [...] Moshe Neely MD. Moshe Neely MD [address], [address] [place] [address] DICTATED:2022-01-03 16:05:11.0 TRANSCRIBED:2022-01-06 12:55:15.0 PROVIDER APPROVAL:2022-01-06 15:01:45.0 [...] City/State/ZIP Code Phone Number [place] [address] [place] [address] * (ABNORMAL) Creatinine Clearance (Urine) (01/02/2022 11:58 [...] Creatinine Urine 24 1.1 0.8 - 01/03/2022 R Hour Calculation 2.0 12:58 AM g/24hr CDT Anatomical Location / Laterality Collection Method / Volume Smitha ection Time Received Time Specimen (Source) Non-Blood Collection / Unknown 01/02/2022 11:58 PM CDT 01/03/2022 12:10 AM CDT Urine (Urine) Agnes Unger MD URINE ORDERABLES City/State/ZIP Code Phone Number [place] [address] * CT Abdomen wo contrast (01/02/2022 3:22 PM CDT) Modality Anatomical Region Laterality Computed Tomography Abdomen Anatomical Location / Laterality Collection Method / Volume Smitha ection Time Received Time Specimen (Source) 01/02/2022 3:22 PM CDT Impressions 01/02/2022 3:48 PM CDT Punctate nonobstructing left renal calculi. Otherwise unremarkable noncontrast appearance of the kidneys. For other findings please see above. READING SITE: [facility] 01/02/2022 3:48 PM CDT Patient: ANABELLA FAYE Sex#: M #: 1950 Sera#: [id number] Location: [facility] H618-01 Ordering Provider: RAMIRO DALE Procedure Requested: [id number] CT ABDOMEN WO CONTRAST Reason for Exam: [...] in the lumbar spine. Anasarca. Procedure Note Dontrell MaxineDO - 01/02/2022 Patient: ANABELLA FAYE Sex#: M #: 1950 Sera#: [id number] Location: [address] H618-01 Ordering Provider: RAMIRO DALE Procedure Requested: [id number] CT ABDOMEN WO CONTRAST Reason for Exam: [...] other findings please see above. READING SITE: [facility] Ramiro Dale PA-C IMChinedu CT ORDERABLES * [...] of aortic stenosis is suspected. READING SITE: [place] [address] Narrative 01/02/2022 4:03 PM CDT Patient: ANABELLA FAYE Sex#: M #: 1950 Sera#: [id number] Location: [address] H618-01 Ordering Provider: AGNES UNGER Procedure Requested: [id number] CT CHEST WO CONTRAST Reason for Exam: [...] ANABELLA FAYE Sex#: M #: 1950 Sera#: [id number] Location: [address] H618-01 Ordering Provider: AGNES UNGER Procedure Requested: [id number] CT CHEST WO CONTRAST Reason for Exam: [...] of aortic stenosis is suspected. READING SITE: [place] [address] Agnes Unger MD IMG CT ORDERABLES * [...] City/State/ZIP Code Phone Number Performing Address Organization [address] * Extra Urine Specimen in Mitchell Tube (01/01/2022 10:57 PM CDT) Only the most recent of 2 results within the time period is included. Pathologist Signature Component Value Ref Test Method Analysis Performed A t Range Time RAINBOW DRAW HOLD [place] 01/02/2022 [facility] SPECIMENS Draw/Extra 12:03 PM Tube Hold CDT Specimen Anatomical Location / Laterality Collection Method / Volume Smitha ection Time Received Time Specimen (Source) Non-Blood Collection / Unknown 01/01/2022 10:57 PM CDT 01/01/2022 11:02 PM CDT Urine (Urine Clean Catch) Agnes Unger MD MICROBIOLOGY - GENERAL ORDE [facility]/ZIP Code Phone Number Performing Address Organization [address] * Extra Urine Specimen in Yellow w/out Preservative (01/01/2022 10:57 PM CDT) Only the most recent of 2 results within the time period is included. Anatomical Location / Laterality Collection Method / Volume Smitha ection Time Received Time Specimen (Source) Non-Blood Collection / Unknown 01/01/2022 10:57 PM CDT 01/01/2022 11:02 PM CDT Urine (Urine Clean Catch) gAnes Unger MD URINE ORDERABLES City/State/ZIP Code Phone Number Performing Address Organization [place], [place] [address] [place] [address] * Urinalysis (includes microscopic review, if indicated) [...] Negative 01/01/2022 [facility] 11:08 PM CDT Specific [place] 1.006 1.005 - 01/01/2022 [facility] Urine 1.030 [...] City/State/ZIP Code Phone Number [place] [address] [place] [address] [facility] * Fecal Occult Blood, diagnostic (non-neoplasm screening) [...] Unger MD BODY FLUIDS AND STOOLS ORDE [facility] City/State/ZIP Code Phone Number [place] [address] [place] [address] * US Abdomen complete (01/01/2022 3:01 [...] Anabella Faye Sex#: Randal #: 1950 Sera#: [id number] Location: [address] Ordering Provider: AGNES UNGER Procedure Requested: [id number] US ABDOMEN COMPLETE Reason for Exam: LVAD [...] Anabella Faye Sex#: M #: 1950 Sera#: [id number] Location: [address] Ordering Provider: AGNES UNGER Procedure Requested: [id number] US ABDOMEN COMPLETE Reason for Exam: LVAD [...] BY RAVEN CEDENO MD Agnes Unger MD [facility] US ORDERABLES * (ABNORMAL) APTT - Heparin [...] City/State/ZIP Code Phone Number [place] [address] * Antibody Screen (01/01/2022 2:50 PM CDT) Pathologist Signature Component Value Ref Test Method Analysis Performed A t Range Time Antibody Screen Negative 01/01/2022 [facility] 2:58 PM [facility] BLOOD BANK CDT Anatomical Location / Laterality Collection Method / Volume Smitha ection Time Received Time Specimen (Source) Venipuncture / Unknown 01/01/2022 2:50 PM CDT 0 01/01/2022 2:57 PM CDT Blood (Venous) Maxine Song MD BLOOD BANK TEST ORDERABLES City/State/ZIP Code Phone Number Performing Address Organization [place], [place] [address] [place] [address] BLOOD BANK * ABORH Type (01/01/2022 2:50 PM CDT) Pathologist Signature Component Value Ref Test Method Analysis Performed A t Range Time ABORH Type B Positive 01/01/2022 [facility] 2:58 PM [facility] BLOOD BANK CDT Anatomical Location / Laterality Collection Method / Volume Smitha ection Time Received Time Specimen (Source) Venipuncture / Unknown 01/01/2022 2:50 PM CDT 0 01/01/2022 2:57 PM CDT Blood (Venous) Maxine Song MD BLOOD BANK TEST ORDERABLES [facility]/ZIP Code Phone Number Performing Address Organization [place], [place] [address] [place] [address] BLOOD BANK * (ABNORMAL) Clotting Screen (01/01/2022 [...] City/State/ZIP Code Phone Number Performing Address Organization [place], [place] [address] * Haptoglobin (01/01/2022 2:50 PM CDT) [...] - 01/04/2022 1:06 PM CDT Performed at: - [address] [address] [address]: Cesar Grant MD, Phone: [phone] Agnes Unger MD LAB BLOOD ORDERABLES City/State/ZIP Code Phone Number [place] [address] [facility] * XR Chest post line [...] Similar small left pleural effusion. READING SITE: [facility] 01/01/2022 12:53 PM CDT Patient: ANABELLA FAYE Sex#: M #: 1950 Sera#: [id number] Location: [address] ICU [id number]-02 Ordering Provider: AGNES UNEGR Procedure Requested: [id number] XR CHEST POST LINE DRAIN OR AIRWAY [...] ANABELLA FAYE Sex#: M #: 1950 Sera#: [id number] Location: [address] ICU Y1ED-[id number] Ordering Provider: AGNES UNGER Procedure Requested: [id number] XR CHEST POST LINE DRAIN OR AIRWAY [...] Similar small left pleural effusion. READING SITE: [facility] Agnes Unger MD IMChinedu DIAGNOSTIC IMAGING ORDE [place] * CATHETERIZATION, HEART, [...] PORT HEPARIN CTD LF 8FR 5-LUMEN 110CM [id number]) catheter was inserted and advanced to the pulmonary artery wedge position under fluoroscopic guidance. Measurements of pressures, aortic (via pulse ox) and venous (via blood draw) oxygen saturations, and cardiac output (by Kaela using assumed VO2) were obtained. PA Catheter Details 2 A (CATHETER PENTALUMEN RA EXTRA PORT HEPARIN CTD LF 8FR 5-LUMEN 110CM [id number]). The catheter remained in place throughout the [...] 5. Mild aortic stenosis. 6. Mild MR. Ugrp-sw-wqwpdicx TR. 7. Estimated central venous and PA pressures are elevated. No previous study available for comparison. Dr. Justin Powers MD (Electronically Signed) Final Date: 01 January 2022 11:27 Narrative 01/01/2022 11:28 AM CDT ECHOCARDIOGRAM REPORT [facility] Name: ANABELLA FAYE Date: 01/01/2022 09:06 Chart #: [id number] : 1950 Location: [facility] Sono: radha Age: 71 Gender: M [...] Inferior, Apical Anterior, Mid Anterior, Basal Anterior, [place] FINDINGS LV Ejection Fraction: 24 Frequent ectopy. [...] ANABELLA FAYE Date: 01/01/2022 09:06 Chart #: [id number] : 1950 Location: [facility] Sono: radha Age: 71 Gender: M [...] Inferior, Apical Anterior, Mid Anterior, Basal Anterior, [place] FINDINGS LV Ejection Fraction: 24 Frequent ectopy. [...] 5. Mild aortic stenosis. 6. Mild MR. Ejvw-bw-flduwprw TR. 7. Estimated central venous and PA [...] (Venous) Maxine Song MD LAB BLOOD ORDERABLES [facility]/ZIP Code Phone Number [place]forming [place] [address] * Retype Patient ABORH (01/01/2022 12:25 AM CDT) Pathologist Signature Component Value Ref Test Method Analysis Performed A t Range Time ABORH Type B Positive 01/01/2022 [facility] 3:24 PM [facility] BLOOD BANK CDT Confirm Blood Type Yes 01/01/2022 [facility] 3:24 PM [facility] BLOOD BANK CDT Anatomical Location / Laterality Collection Method / Volume Smitha ection Time Received Time Specimen (Source) Venipuncture / Unknown 01/01/2022 12:25 AM CDT 0 01/01/2022 12:38 AM CDT Blood (Venous) Maxine Song MD BLOOD BANK TEST ORDERABLES [facility]/ZIP Code Phone Number Performing Address Organization [place], [place] [address] [place] [address] BLOOD BANK * (ABNORMAL) Hemoglobin A1C (01/01/2022 [...] (Venous) Maxine Song MD LAB BLOOD ORDERABLES [facility]/ZIP Code Phone Number [place] [address] * (ABNORMAL) Digoxin (01/01/2022 12:25 AM CDT) [...] (Venous) Susan Caceres MD LAB BLOOD ORDERABLES City/[facility]/ZIP Code Phone Number [place] [address] [place] [address] * (ABNORMAL) Iron/Transferrin (01/01/2022 12:25 [...] City/State/ZIP Code Phone Number Performing Address Organization [place] [address] [place] [address] * Ferritin (01/01/2022 12:25 AM [...] AM CDT Reference range updated 06/29/21 with HS conversion to [employer] instrumentation. Susan Caceres MD LAB BLOOD ORDERABLES [facility]/ZIP Code Phone Number [place] [address] [place] [address] Road * (ABNORMAL) Lipid Panel (01/01/2022 12:25 [...] Comment: Reference range updated 06/29/[address] [facility] conversion to [employer] instrumentation. Non-HDL Cholesterol [...] (Venous) Susan Caceres MD LAB BLOOD ORDERABLES [facility]/State/ZIP Code Phone Number [place] [address] [address] * BENZODIAZEPINES CONFIRMATION, U (12/31/2021 11:30 PM CDT) Pathologist Signature Component Value Ref Test Method Analysis Performed A t Range Time Alprazolam by Negative Cutoff: 01/06/2022 [facility] LC-MS/MS 10 ng/mL 12:25 PM LABORATORIES CDT Alpha-Hydroxyalprazo Negative Cutoff: 01/06/2022 [facility] krishnan by LC-MS/MS 10 ng/mL 12:25 PM LABORATORIES CDT Chlordiazepoxide by Negative Cutoff: 01/06/2022 [facility] LC-MS/MS 10 ng/mL 12:25 PM LABORATORIES CDT Clonazepam by Negative Cutoff: 01/06/2022 [facility] LC-MS/MS 10 ng/mL 12:25 PM LABORATORIES CDT 7-aminoclonazepam by Negative Cutoff: 01/06/2022 [facility] LC-MS/MS 10 ng/mL 12:25 PM LABORATORIES CDT Diazepam by LC-MS/MS Negative Cutoff: 01/06/2022 [facility] 10 ng/mL 12:25 PM LABORATORIES CDT Nordiazepam by Negative Cutoff: 01/06/2022 [facility] LC-MS/MS 10 ng/mL 12:25 PM LABORATORIES CDT Midazolam by Negative Cutoff: 01/06/2022 [facility] LC-MS/MS 10 ng/mL 12:25 PM LABORATORIES CDT Alpha-Hydroxy Negative Cutoff: 01/06/2022 [facility] Midazolam by 10 ng/mL 12:25 PM LABORATORIES LC-MS/MS CDT Oxazepam by LC-MS/MS 251 Cutoff: 01/06/2022 [facility] 10 ng/mL 12:25 PM LABORATORIES CDT Temazepam by 3670 Cutoff: 01/06/2022 [facility] LC-MS/MS 10 ng/mL 12:25 PM LABORATORIES CDT Clobazam by LC-MS/MS Negative Cutoff: 01/06/2022 [facility] 10 ng/mL 12:25 PM LABORATORIES CDT N-Desmethylclobazam See Below Cutoff: 01/06/2022 [facility] by LC-MS/MS 10 ng/mL 12:25 PM LABORATORIES CDT Comment: Unknown interfering substance present; unable to obtain results. Flunitrazepam by Negative Cutoff: 01/06/2022 [facility] LC-MS/MS 10 ng/mL 12:25 PM LABORATORIES CDT 7-aminoflunitrazepam Negative Cutoff: 01/06/2022 [facility] by LC-MS/MS 10 ng/mL 12:25 PM LABORATORIES CDT Flurazepam by Negative Cutoff: 01/06/2022 [facility] LC-MS/MS 10 ng/mL 12:25 PM LABORATORIES CDT 2-Hydroxy Ethyl Negative Cutoff: 01/06/2022 [facility] Flurazepam by 10 ng/mL 12:25 PM LABORATORIES LC-MS/MS CDT Lorazepam by Negative Cutoff: 01/06/2022 [facility] LC-MS/MS 10 ng/mL 12:25 PM LABORATORIES CDT Prazepam by LC-MS/MS Negative Cutoff: 01/06/2022 [facility] 10 ng/mL 12:25 PM LABORATORIES CDT Triazolam by Negative Cutoff: 01/06/2022 [facility] LC-MS/MS 10 ng/mL 12:25 PM LABORATORIES CDT Alpha-Hydroxy Negative Cutoff: 01/06/2022 [facility] Triazolam by 10 ng/mL 12:25 PM LABORATORIES LC-MS/MS CDT Zolpidem by LC-MS/MS Negative Cutoff: 01/06/2022 [facility] 10 ng/mL 12:25 PM LABORATORIES CDT Zolpidem Negative Cutoff: 01/06/2022 [facility] Jaeseu-3-Rrmmbnvbah 10 ng/mL 12:25 PM LABORATOR IES acid by LC-MS/MS CDT Benzodiazepines Positive. 01/06/2022 [facility] Interpretation 12:25 PM LABORATORIES CDT Comment: A DDITIONAL INFORMATION--------- This report is intended for use in clinical monitoring and management of patients. It is not intended for use in employment-related testing. This test was developed and its performance characteristics determined by [facility] in a manner consistent with CLIA requirements. This test has not been cleared or approved by the U.S. Food and Drug Administration. Test Performed by: [facility] [address] [place] [address] [employer]: Albert Singh M.D. Ph.D.; CLIA# [id number] Anatomical Location / Laterality Collection Method / Volume Smitha ection Time Received Time Specimen (Source) Non-Blood Collection / Unknown 12/31/2021 11:30 PM CDT 01/01/2022 10:35 AM CDT Urine (Urine Clean Catch) Maxine Song MD URINE ORDERABLES City/State/ZIP Code Phone Number Performing [place] [address] [place] [address] [facility] * (ABNORMAL) COVID PCR - Rapid (12/31/2021 [...] Caceres MD MICROBIOLOGY - GENERAL [facility]/State/ZIP Code Phone Number [place] [address] [address] * (ABNORMAL) Toxicology Screening Panel (12/31/2021 11:30 [...] tricyclic antidepressants. Maxine Song MD URINE ORDERABLES [facility] Code Phone Number Performing Address Organization [address] * (ABNORMAL) Uric Acid (12/31/2021 8:44 [...] 12/31/2021 8:50 PM CDT Blood (Venous) Narrative [facility] - 01/01/2022 10:33 AM CDT Reference range updated 06/29/21 with [facility] conversion to [employer] instrumentation. Maxine Song MD LAB BLOOD ORDERABLES [facility] Code Phone Number Performing Address Organization [address] * Prealbumin (12/31/2021 8:44 PM CDT) [...] CDT Blood (Venous) Narrative RL - 01/01/2022 3:05 PM CDT Reference range updated 06/29/21 with [facility] conversion to [employer] instrumentation. Maxine Song MD LAB BLOOD ORDERABLES [facility]/ZIP Code Phone Number Performing Address Organization [place], [place] [address] [place] [address] * Magnesium (12/31/2021 8:44 PM CDT) Only [...] (Venous) Maxine Song MD LAB BLOOD ORDERABLES [facility]/ZIP Code Phone Number Performing Address Organization [place], [place] [address] [place] [address] * Rapid Plasma Reagin (12/31/2021 8:44 PM [...] (Venous) Maxine Song MD LAB BLOOD ORDERABLES [facility]/ZIP Code Phone Number [place] [address] [place] [address] [facility] * PSA Screen (12/31/2021 8:44 PM CDT) [...] - 01/01/2022 12:00 PM CDT Method for [facility] is [employer]. Maxine Song MD LAB BLOOD ORDERABLES [facility]/ZIP Code Phone Number [place] [address] * (ABNORMAL) Creatinine (Serum) (12/31/2021 8:44 [...] (Venous) Maxine Song MD LAB BLOOD ORDERABLES [facility]/ZIP Code Phone Number [place] [address] * Acute Hepatitis Panel (12/31/2021 8:44 [...] (Venous) Maxine Song MD LAB BLOOD ORDERABLES [facility]/ZIP Code Phone Number [place] [address] * HIV AG/JOEY (12/31/2021 8:44 PM CDT) [...] (Venous) Maxine Song MD LAB BLOOD ORDERABLES [facility]/ZIP Code Phone Number [place] [address] * Lactate Dehydrogenase (12/31/2021 8:44 PM [...] CDT Reference range updated 06/29/[address] [facility] conversion to [employer] instrumentation. Maxine Song MD LAB BLOOD ORDERABLES [facility]/ZIP Code Phone Number [place] [address] * Lactate Venous WB - Reflex [...] (Venous) Susan Caceres MD LAB BLOOD ORDERABLES [facility]/State/ZIP Code Phone Number [place] [address] * (ABNORMAL) Prothrombin [...] (Venous) Susan Caceres MD LAB BLOOD ORDERABLES [facility]/ZIP Code Phone Number [place] [address] * (ABNORMAL) Thyroid [...] CDT Reference range updated 06/29/[address] [facility] conversion to [employer] instrumentation. Susan Caceres MD LAB BLOOD ORDERABLES [facility]/State/ZIP Code Phone Number [place] [address] * (ABNORMAL) BNP [...] Narrative [facility] - 12/31/2021 9:22 PM CDT [facility] converted from NTproBNP (Ortho - [facility] 5600) to BNP ([employer] - [employer]) on June 29, 2021. Susan Caceres MD LAB BLOOD ORDERABLES [facility]/ZIP Code Phone Number [place] [address] * (ABNORMAL) T4 Free (12/31/2021 8:44 [...] CDT Reference range updated 06/29/[address] [facility] conversion to [employer] instrumentation. Maxine Song MD LAB BLOOD ORDERABLES [facility]/ZIP Code Phone Number [place] [address] [place] [address] * XR Chest single view frontal [...] or edited the final report. READING SITE: [facility] 01/01/2022 7:49 AM CDT Patient: ANABELLA FAYE Sex#: M #: [id number] Sera#: [id number] Location: [address] H515-01 Ordering Provider: SUSAN CACERES Procedure Requested: [id number] XR CHEST SINGLE VIEW FRONTAL Reason for [...] ANABELLA FAYE Sex#: M #: [id number] Sera#: [id number] Location: [address] CTX H515-01 Ordering Provider: SUSAN CACERES Procedure Requested: [id number] XR CHEST SINGLE VIEW FRONTAL Reason for [...] or edited the final report. READING SITE: [facility] Susan Caceres MD IMG DIAGNOSTIC IMAGING ORDE HAL documented in this encounter Visit Diagnoses Not on filedocumented in this encounter Administered Medications Action Date Dose Rate Site Medication Order MAR Action 01/09/2022 8:11 AM CDT 650 mg acetaminophen (TYLENOL) tablet 325-650 Given mg 325-650 mg, Oral, Every 4 hours PRN, mild pain (pain score 1-3), Starting on Wed01/08/22 at 1529, For 24 hours, Do no [...] mg Given 01/07/2022 9:35 AM CDT 01/08/2022 9:24 AM CDT 1 spray fluticasone propionate (FLONASE) 50 Given mcg/actuation nasal spray 1 spray 1 spray, Each Nare, Daily, First dose o n Adrienne 01/01/22 at 0900 1 spray Given 01/07/2022 [...] for injection by adding 1 mL of accounts supervisor-supplied sterile diluent or sterile water for injection [...] for injection by adding 1 mL of accounts supervisor-supplied sterile diluent o r sterile water for [...] 25 mcg Given 01/07/2022 6:00 AM CDT 01/01/2022 11:35 AM CDT 4 mL Right Ne ck lidocaine (pf) (XYLOCAINE-MPF) 10 mg/mL Given (1 %) injection As needed, Starting on Wed01/01/22 at 1135, Intra-Procedure (Cath) magnesium sulfate IVPB 4 gram [...] lanza RN) amiodarone (CORDARONE) tablet 200 mg 0935 (Given - (CANCELED) Provider: Eugenia Ramirez 200 mg, Oral, Daily, First dose on Wed GENI Spencer) 12/31/21 at 2100 apixaban (ELIQUIS) tablet 5 mg 5 mg, Oral, 2 times daily, Indications: prevent thromboembolism in chronic atrial fibrillation, First dose on Wed01/09/22 at 2100 0922 (Given - Provider: Ayana lanza RN) 0811 (Given - Provider: Ashley Wade) aspirin EC tablet 81 mg 35 (Given - 81 mg, Oral, Daily, First [...] criteria to HOLD this medication? N o 09 (Given - Provider: Ayana lanza RN) 0811 (Given - Provider: Ashley Wade) eplerenone (INSPRA) tablet 25 mg 0935 (Given - 25 mg, Oral, Daily, First dose on Sun Provider: Gabby vaz R 01/04/22 at 1445 GENI Spencer) 0924 (Given - Provider: yAana lanza RN) 0815 (Not Given - Provider: [...] First dose on Wed Provider: Gabby Ramirez 01/07/22 at 0900 GENI Spencer) 0730 (Not [...] 01/09/2022 Medication Order 01/07/2022 acetaminophen (TYLENOL) tablet [phone] (Given - mg (CANCELED) Provider: Jatin Berrtand 325-650 mg, Oral, Every 6 hours PRN, GENI Wynne) mild pain (pain score 1-3), fever greater than 101.5 F, Starting on Wed12/31/21 at 2141, Do not exceed 4 GM/DAY of acetaminophen. If 65 or older do no t exceed 3 GM/DAY. If chronic alcoholic d o not exceed 2 GM/DAY. 2103 (Given - Provider: Reyna davis RN) 0401 (Given - Provider: Reyna davis RN)0811 [...] Intra-Procedure (Cath) 2107 (Given - Provider: Reyna davis RN) cyclobenzaprine (FLEXERIL) tablet 10 mg 2150 (Given [...] 1337 (Given - Provider: Arlene Nicole , RN)1346 (Given - Provider: Arlene Nicole, RN)1356 (Given - Provider: Arlene Nicole, RN) fentaNYL (SUBLIMAZE) injection (CANCELED) As needed, [...] for injection by adding 1 mL of accounts supervisor-supplied sterile diluent or sterile water for injection [...] for injection by adding 1 mL of accounts supervisor-supplied sterile diluent o r sterile water for [...] injection (CANCELED) As needed, Starting on Adrienne 5/22 at 1337, Intra-Procedure (Cath) nitroglycerin (NITROSTAT) SL [...] pain (pain score 4-6), Startin g on Wed01/08/22 at 1529, For 24 hours, Do not [...] Bertrand on Wed12/31/21 at 2028, Do stefanie Wynne RN) administer in the presence of confusion [...] inje ction by adding 1 mL of accounts supervisor- supplied sterile diluent or sterile water for [...] inje ction by adding 1 mL of accounts supervisor- supplied sterile diluent or sterile water for [...]
--- OUTSIDE RECORDS SUMMARY | 2022-01-09 16:30 | XMS REPORT | Encounter Summary ---
Author Author [facility] Organization [facility] Address Unknown Phone Unavailable Care Team Providers Care Machine I Trimmer Name Role Phone PCP Unavailable Reason for Referral * Diagnostic Imaging (Routine) - Pending Review Diagnoses / Procedures Referred By Contact Referred To Conta ct Specialty Diagnoses Encounter for consultation Procedures Echo Outside images for PACS Ponce Fonseca MD [address] [facility] [address] [place] [address] Referral ID Status Reason Start Date Expiration Visits Vi sits Date Requested Authorized [id number] Pending 01/05/2022 01/05/2023 1 1 Review Encounter Details Care Team Description Date Type Department Provider, MD Edenilson [address] [place], [place] [id number] Encounter for consultation (Primary Dx) 01/05/2022 Transcribe [facility] Orders Transplant/Heart Failure/ VAD [address] [facility] [address] [place] [address] Social History Date Tobacco Use Types Packs/Day [...] Herr MD [address] [facility] [address] [place], [place] [id number] 02/09/2022 Telephone Cardiology Vanessa Phillip FNP [address] [facility] [address] [place] [address] 04/16/2022 Office Visit Cardiology 04/16/2022 Nurse Only Cardiology documented as of this encounter Results * Cath Outside images [...] encounter Visit Diagnoses Diagnosis Encounter for consultation - Primary documented in this encounter Additional Health Concerns Onset Date Resolved Time Infection Last Indicated 01/05/2022 01/06/2022 6:39 AM CDT COVID-19 PUI 01/05/2022 documented as of this encounter
--- OUTSIDE RECORDS SUMMARY | 2022-01-09 16:30 | XMS REPORT | Encounter Summary ---
Author Author [facility] Organization [facility] Address Unknown Phone Unavailable Care Team Providers Care Trainmaster Name Role Phone PCP Unavailable Encounter Details Care Team Description Date Type Department Laurel Park RN 01/01/2022 Documentation [facility] Cardi c Transplant/Heart Failure/ VAD [address] [facility] [address] [place] [address] Social History Date Tobacco Use Types Packs/Day Years Used Never Smoker Smokeless Tobacco: Never Used Comments Alcohol Use Standard Drinks/Week Not Currently 0 (1 standard drink = 0.6 o z pure alcohol) Sex Assigned at Date Recorded Not on file documented as of this encounter Progress Notes * Laurel Park RN - 01/01/2022 9:50 AM CDT VAD Evaluation Letter Sent. documented in this encounter Plan of Treatment Care Team Description Date Type Specialty 01/15/2022 Nurse Only Cardiology Jose Carlos Herr MD [address] [facility] [address] [place] [address] 02/09/2022 Telephone Cardiology Vanessa Phillip FNP [address] [facility] [address] [place] [address] 04/16/2022 Office Visit Cardiology 04/16/2022 Nurse Only Cardiology documented as of this encounter Visit Diagnoses Not on filedocumented in this encounter Additional Health Concerns Onset Date Resolved Time Infection Last Indicated 12/31/2021 01/01/2022 12:36 AM CDT COVID-19 PUI 12/31/2021 12/31/2021 01/01/2022 8:36 AM CDT COVID-19 Confirmed 12/31/2021 Comment: Initially positive 09/29/21 per HD. No isolation needed per ID documented as of this encounter
--- OUTSIDE RECORDS SUMMARY | 2022-01-09 16:31 | XMS REPORT ---
Discharge Summary 2.1 Created on: 12/14/2021 ANABELLA ADAIR : 1950 Sex: Male Author Author ANABELLA MASON Organization Unknown Address [address] [facility] [address] [place], [place] [id number] Care Team Providers Care Cold Strip Feeder Name Role Phone Xwatchlist FATIMAH Gallegos MD [facility] Attending [phone] JENNA Che MD ER Erdoc1 XAVIER RODRIGUEZ MD [facility] NAVIN Joaquin [facility] Functional Status No Data Found Immunization Immunization Date Status Additional Notes Code Code System COVID-19, mRNA, LNP- S, PF, 100 mcg/0.5mL dose or 50 mcg/0.25mL dose 10/09/2020 Completed 207 CVX COVID-19, mRNA, LNP- S, PF, 100 mcg/0.5mL dose or 50 mcg/0.25mL dose 11/06/2020 Completed 207 CVX Mental Status No Data Found Results BEDSIDE GLUCOSE - Collect Date/Time: 11:17 [employer] ID: [id number] - [id number] [address] [facility] [address], [place], [place], [id number] LOINC: 49334-8 Test Value Unit Reference Range Code Code System GLUCOSE POCT 162 MG/DL L=70 H=100 4 1653-7 LOINC BEDSIDE GLUCOSE - Collect Date/Time: 07:23 [employer] ID: [id number] - [id number] [address] [facility] [address], [place], [place], [id number] LOINC: 79715-7 Test Value Unit Reference Range Code Code System GLUCOSE POCT 135 MG/DL L=70 H=100 4 1653-7 LOINC PRO BNP - Collect Date/Time: 11/21/2021 06:25 [employer] ID: [id number] - [id number] [address] [facility] [address], [address] LOINC: 32961-9 Test Value Unit Reference Range Code Code System PRO BNP 4230 PG/ML L=0 H=125 3 0934-4 LOINC BASIC METABOLIC PANEL - Collect Date/Jose e: 11/21/2021 06:25 [employer] ID: [id number] - [id number] [address] [facility] [address], [address] LOINC: 00220-1 Test Value Unit Reference Range Code Code System GLUCOSE 132 MG/DL L=74 H=100 2 345-7 LOINC SODIUM 131 MEQ/L L=135 H=145 2 951-2 LOINC POTASSIUM 3.9 MEQ/L L=3.5 H=5.1 2 823-3 LOINC CHLORIDE 94 MEQ/L L=98 H=107 2 075-0 LOINC CO2 27 MEQ/L L=22 H=30 20 28-9 LOINC BUN 20 MG/DL L=9 H=20 30 94-0 LOINC CREATININE 1.00 MG/DL L=0.70 H=1.30 2160-0 LOINC CALCIUM 9.0 MG/DL L=8.6 H=10.3 55867-3 LOINC AGE 71 yrs GFR NonAA 73 GFR AA 88 eGFR 73 mL/min/1.7 eGFR AA* >60 CBC W/ AUTO DIFF (RFLX MAN DIFF IF IND) - Collect Date/Time: 11/21/2021 06:25 [employer] ID: [id number] - [id number] [address] [facility] [address], [address] LOINC: 74911-8 Test Value Unit Reference Range Code Code System WBC 6.9 TH/CMM L=4.5 H=10.8 53941-2 LOINC RBC 3.79 ML/CMM L=4.70 H=6.10 789-8 LOINC HGB 10.8 G/DL L=14.0 H=18.0 7 18-7 LOINC HCT 32.1 % L=42.0 H=52.0 4544 -3 LOINC MCV 85 FL L=81 H=99 MCH 28.5 PG L=27.0 H=33.0 MCHC 33.6 G/DL L=31.0 H=36.0 RDW SD 40 FL L=36 H=50 RDW CV 13.2 % L=0.0 H=14.8 MPV 10.0 FL L=9.3 H=12.5 PLT 385 TH/CMM L=130 H=440 777-3 LOINC NRBC# 0.00 TH/CMM L=0.00 H=0.00 NRBC% 0.0 /100WBC L=0.0 H=2.0 %NEUT 54.7 % %LYMP 34.0 % %MONO 8.5 % %EOS 1.6 % %BASO 0.9 % #NEUT 3.80 TH/CMM L=2.10 H=8.20 #LYMP 2.36 TH/CMM L=0.90 H=5.20 #MONO 0.59 TH/CMM L=0.16 H=1.00 #EOS 0.11 TH/CMM L=0.00 H=0.80 #BASO 0.06 TH/CMM L=0.00 H=0.20 MANUAL DIFF NOT IND BEDSIDE GLUCOSE - Collect Date/Time: 20:41 [employer] ID: [id number] - [id number] [address] [facility] [address], [place], [id number] LOINC: 52068-2 Test Value Unit Reference Range Code Code System GLUCOSE POCT 159 MG/DL L=70 H=100 4 1653-7 LOINC PRO BNP - Collect Date/Time: 11/20/2021 06:05 [facility] ID: [id number] - [id number] [address] [facility] [address], [place], [place], [address] LOINC: 03014-8 Test Value Unit Reference Range Code Code System PRO BNP 4740 PG/ML L=0 H=125 3 0934-4 LOINC MAGNESIUM - Collect Date/Time: 06:05 [employer] ID: [id number] - [id number] [address] [facility] [address] [place], [place], [address] LOINC: 39928-6 Test Value Unit Reference Range Code Code System MAGNESIUM 2.0 MG/DL L=1.6 H=2.3 1 9123-9 LOINC BASIC METABOLIC PANEL - Collect Date/Jose e: 11/20/2021 06:05 [employer] ID: [id number] - [id number] [address] [facility] [address] [place], [place], [address] LOINC: 71390-4 Test Value Unit Reference Range Code Code System GLUCOSE 130 MG/DL L=74 H=100 2 345-7 LOINC SODIUM 135 MEQ/L L=135 H=145 2 951-2 LOINC POTASSIUM 3.7 MEQ/L L=3.5 H=5.1 2 823-3 LOINC CHLORIDE 96 MEQ/L L=98 H=107 2 075-0 LOINC CO2 28 MEQ/L L=22 H=30 20 28-9 LOINC BUN 19 MG/DL L=9 H=20 30 94-0 LOINC CREATININE 0.90 MG/DL L=0.70 H=1.30 2160-0 LOINC CALCIUM 9.1 MG/DL L=8.6 H=10.3 24686-0 LOINC AGE 71 yrs GFR NonAA 83 GFR AA 101 eGFR 83 mL/min/1.7 eGFR AA* >60 CBC W/ AUTO DIFF (RFLX MAN DIFF IF IND) - Collect Date/Time: 11/20/2021 06:05 [employer] ID: [id number] - [id number] [address] [facility] [address] [place], [place], [address] LOINC: 79316-5 Test Value Unit Reference Range Code Code System WBC 7.6 TH/CMM L=4.5 H=10.8 39220-9 LOINC RBC 3.96 ML/CMM L=4.70 H=6.10 789-8 LOINC HGB 11.4 G/DL L=14.0 H=18.0 7 18-7 LOINC HCT 33.9 % L=42.0 H=52.0 4544 -3 LOINC MCV 86 FL L=81 H=99 MCH 28.8 PG L=27.0 H=33.0 MCHC 33.6 G/DL L=31.0 H=36.0 RDW SD 41 FL L=36 H=50 RDW CV 13.2 % L=0.0 H=14.8 MPV 10.1 FL L=9.3 H=12.5 PLT 425 TH/CMM L=130 H=440 777-3 LOINC NRBC# 0.00 TH/CMM L=0.00 H=0.00 NRBC% 0.0 /100WBC L=0.0 H=2.0 %NEUT 56.9 % %LYMP 32.8 % %MONO 7.9 % %EOS 1.3 % %BASO 0.8 % #NEUT 4.29 TH/CMM L=2.10 H=8.20 #LYMP 2.48 TH/CMM L=0.90 H=5.20 #MONO 0.60 TH/CMM L=0.16 H=1.00 #EOS 0.10 TH/CMM L=0.00 H=0.80 #BASO 0.06 TH/CMM L=0.00 H=0.20 MANUAL DIFF NOT IND PHOSPHORUS - Collect Date/Time: 11/21/19 06:05 [employer] ID: [id number] - [id number] [address] [facility] [address], [place], [place], [address] LOINC: 2777-1 Test Value Unit Reference Range Code Code System PHOSPHORUS 4.3 MG/DL L=2.5 H=4.5 2 777-1 LOINC BEDSIDE GLUCOSE - Collect Date/Time: 20:48 [employer] ID: [id number] - [id number] [address] [facility] [address], [place], [place], [address] LOINC: 56994-4 Test Value Unit Reference Range Code Code System GLUCOSE POCT 144 MG/DL L=70 H=100 4 1653-7 LOINC BEDSIDE GLUCOSE - Collect Date/Time: 17:06 [employer] ID: [id number] - [id number] [address] [facility] [address], [place], [address] LOINC: 47428-4 Test Value Unit Reference Range Code Code System GLUCOSE POCT 156 MG/DL L=70 H=100 4 1653-7 LOINC BEDSIDE GLUCOSE - Collect Date/Time: 11:52 [employer] ID: [id number] - [id number] [address] [facility] [address], [place], [place], [address] LOINC: 24785-2 Test Value Unit Reference Range Code Code System GLUCOSE POCT 179 MG/DL L=70 H=100 4 1653-7 LOINC HEMOGLOBIN A1C - Collect Date/Time: 11/04 08:03 [employer] ID: [id number] - [id number] [address] [facility] [address], [place], [place], [address] LOINC: 08380-1 Test Value Unit Reference Range Code Code System HGB A1C 7.1 % L=4.0 H=6.5 18676 -6 LOINC Est Avg Glucose 157.1 mg/dL 51852-6 LOINC TROPONIN-I ADV - Collect Date/Time: 11/04 08:03 [employer] ID: [id number] - [id number] [address] [facility] [address], [place], [place], [address] LOINC: 83274-6 Test Value Unit Reference Range Code Code System TROPONIN-I AD 0.035 ng/mL L=0.000 H=0.034 83867- 9 LOINC T4 - Collect Date/Time: 11/19/2021 08:03 [employer] ID: [id number] - [id number] [address] [facility] [address], [place], [address] LOINC: 3026-2 Test Value Unit Reference Range Code Code System T4 7.7 UG/DL L=5.5 H=10.9 3026-2 LOINC TSH - Collect Date/Time: 11/19/2021 08:0 3 [employer] ID: [id number] - [id number] [address] [facility] [address], [place], [place], [address] LOINC: 31093-5 Test Value Unit Reference Range Code Code System TSH 8.20 mIU/L L=0.47 H=4.68 85988-1 LOINC CBC W/ AUTO DIFF (RFLX MAN DIFF IF IND) - Collect Date/Time: 11/19/2021 08:03 [employer] ID: [id number] - [id number] [address] [facility] [address], [place], [place], [address] LOINC: 65189-9 Test Value Unit Reference Range Code Code System WBC 7.6 TH/CMM L=4.5 H=10.8 77109-7 LOINC RBC 3.79 ML/CMM L=4.70 H=6.10 789-8 LOINC HGB 10.9 G/DL L=14.0 H=18.0 7 18-7 LOINC HCT 32.9 % L=42.0 H=52.0 4544 -3 LOINC MCV 87 FL L=81 H=99 MCH 28.8 PG L=27.0 H=33.0 MCHC 33.1 G/DL L=31.0 H=36.0 RDW SD 42 FL L=36 H=50 RDW CV 13.3 % L=0.0 H=14.8 MPV 10.2 FL L=9.3 H=12.5 PLT 434 TH/CMM L=130 H=440 777-3 LOINC NRBC# 0.00 TH/CMM L=0.00 H=0.00 NRBC% 0.0 /100WBC L=0.0 H=2.0 %NEUT 56.9 % %LYMP 32.0 % %MONO 7.5 % %EOS 2.4 % %BASO 0.9 % #NEUT 4.33 TH/CMM L=2.10 H=8.20 #LYMP 2.43 TH/CMM L=0.90 H=5.20 #MONO 0.57 TH/CMM L=0.16 H=1.00 #EOS 0.18 TH/CMM L=0.00 H=0.80 #BASO 0.07 TH/CMM L=0.00 H=0.20 MANUAL DIFF NOT IND PRO BNP - Collect Date/Time: 11/19/2021 08:03 [employer] ID: [id number] - [id number] [address], [place], [place], [address] LOINC: 26383-3 Test Value Unit Reference Range Code Code System PRO BNP 4040 PG/ML L=0 H=125 3 0934-4 LOINC BASIC METABOLIC PANEL - Collect Date/Jose e: 11/19/2021 08:03 [employer] ID: [id number] - [id number] [address] [facility] [address], [place], [address] LOINC: 41482-4 Test Value Unit Reference Range Code Code System GLUCOSE 129 MG/DL L=74 H=100 2 345-7 LOINC SODIUM 133 MEQ/L L=135 H=145 2 951-2 LOINC POTASSIUM 3.6 MEQ/L L=3.5 H=5.1 2 823-3 LOINC CHLORIDE 94 MEQ/L L=98 H=107 2 075-0 LOINC CO2 28 MEQ/L L=22 H=30 20 28-9 LOINC BUN 18 MG/DL L=9 H=20 30 94-0 LOINC CREATININE 1.10 MG/DL L=0.70 H=1.30 2160-0 LOINC CALCIUM 9.2 MG/DL L=8.6 H=10.3 58388-7 LOINC AGE 71 yrs GFR NonAA 66 GFR AA 80 eGFR 66 mL/min/1.7 eGFR AA* >60 BEDSIDE GLUCOSE - Collect Date/Time: 21:11 [employer] ID: [id number] - [id number] [address] [facility] [address], [place], [place], [address] LOINC: 14049-2 Test Value Unit Reference Range Code Code System GLUCOSE POCT 197 MG/DL L=70 H=100 4 1653-7 LOINC PRO BNP - Collect Date/Time: 11/18/2021 13:35 [employer] ID: [id number] - [id number] [address] [facility] [address], [place], [place], [address] LOINC: 52541-9 Test Value Unit Reference Range Code Code System PRO BNP 3750 PG/ML L=0 H=125 3 0934-4 LOINC COVID-19 ANTIGEN - Collect Date/Time: 09:56 [employer] ID: [id number] - [id number] [address] [facility] [address], [place], [place], [address] LOINC: W35711-0 Test Value Unit Reference Range Code Code System SARS-CoV2 ANTIGEN Negative* E71792-5 LOINC CBC W/ AUTO DIFF (RFLX MAN DIFF IF IND) - Collect Date/Time: 11/18/2021 06:20 [employer] ID: [id number] - [id number] [address] [facility] [address], [place], [place], [address] LOINC: 72364-4 Test Value Unit Reference Range Code Code System WBC 8.1 TH/CMM L=4.5 H=10.8 16660-0 LOINC RBC 3.78 ML/CMM L=4.70 H=6.10 789-8 LOINC HGB 10.8 G/DL L=14.0 H=18.0 7 18-7 LOINC HCT 33.1 % L=42.0 H=52.0 4544 -3 LOINC MCV 88 FL L=81 H=99 MCH 28.6 PG L=27.0 H=33.0 MCHC 32.6 G/DL L=31.0 H=36.0 RDW SD 43 FL L=36 H=50 RDW CV 13.3 % L=0.0 H=14.8 MPV 10.3 FL L=9.3 H=12.5 PLT 446 TH/CMM L=130 H=440 777-3 LOINC NRBC# 0.00 TH/CMM L=0.00 H=0.00 NRBC% 0.0 /100WBC L=0.0 H=2.0 %NEUT 70.2 % %LYMP 19.6 % %MONO 7.2 % %EOS 2.0 % %BASO 0.6 % #NEUT 5.69 TH/CMM L=2.10 H=8.20 #LYMP 1.59 TH/CMM L=0.90 H=5.20 #MONO 0.58 TH/CMM L=0.16 H=1.00 #EOS 0.16 TH/CMM L=0.00 H=0.80 #BASO 0.05 TH/CMM L=0.00 H=0.20 MANUAL DIFF NOT IND INHOUSE COVID-19 - Collect Date/Time: 19:41 [employer] ID: [id number] - [id number] [address] [facility] [address], [place], [place], [id number] LOINC: E26524-0 Test Value Unit Reference Range Code Code System SARS-CoV-2 RNA DETECTED NL: Not Detected X945 00- 6 LOINC Specimen Source: Nasopharyngeal LIPASE - Collect Date/Time: 11/17/2021 1 7:05 [employer] ID: [id number] - [id number] [address] [facility] [address], [place], [place], [address] LOINC: 3040-3 Test Value Unit Reference Range Code Code System LIPASE 198 U/L L=23 H=300 304 0-3 LOINC CBC W/ AUTO DIFF (RFLX MAN DIFF IF IND) - Collect Date/Time: 11/17/2021 17:05 [employer] ID: [id number] - [id number] [address] [facility] [address], [place], [place], [address] LOINC: 06931-9 Test Value Unit Reference Range Code Code System WBC 9.0 TH/CMM L=4.5 H=10.8 49133-4 LOINC RBC 3.87 ML/CMM L=4.70 H=6.10 789-8 LOINC HGB 11.0 G/DL L=14.0 H=18.0 7 18-7 LOINC HCT 33.8 % L=42.0 H=52.0 4544 -3 LOINC MCV 87 FL L=81 H=99 MCH 28.4 PG L=27.0 H=33.0 MCHC 32.5 G/DL L=31.0 H=36.0 RDW SD 42 FL L=36 H=50 RDW CV 13.2 % L=0.0 H=14.8 MPV 10.1 FL L=9.3 H=12.5 PLT 452 TH/CMM L=130 H=440 777-3 LOINC NRBC# 0.00 TH/CMM L=0.00 H=0.00 NRBC% 0.0 /100WBC L=0.0 H=2.0 %NEUT 77.9 % %LYMP 15.0 % %MONO 5.6 % %EOS 0.7 % %BASO 0.6 % #NEUT 7.01 TH/CMM L=2.10 H=8.20 #LYMP 1.35 TH/CMM L=0.90 H=5.20 #MONO 0.50 TH/CMM L=0.16 H=1.00 #EOS 0.06 TH/CMM L=0.00 H=0.80 #BASO 0.05 TH/CMM L=0.00 H=0.20 MANUAL DIFF NOT IND COMPREHENSIVE METABOLIC PANEL - Collect Date/Time: 11/17/2021 17:05 [employer] ID: [id number] - [id number] [address], [place], [place], [id number] LOINC: 35095-7 Test Value Unit Reference Range Code Code System GLUCOSE 108 MG/DL L=74 H=100 2 345-7 LOINC SODIUM 132 MEQ/L L=135 H=145 2 951-2 LOINC POTASSIUM 3.7 MEQ/L L=3.5 H=5.1 2 823-3 LOINC CHLORIDE 92 MEQ/L L=98 H=107 2 075-0 LOINC CO2 25 MEQ/L L=22 H=30 20 28-9 LOINC BUN 19 MG/DL L=9 H=20 30 94-0 LOINC CREATININE 1.10 MG/DL L=0.70 H=1.30 2160-0 LOINC SGOT/AST 25 IU/L L=17 H=59 192 0-8 LOINC SGPT/ALT 23 IU/L L=0 H=50 174 2-6 LOINC ALK PHOS 115 IU/L L=38 H=126 67 68-6 LOINC TOTAL PROTEIN 6.1 G/DL L=6.3 H=8.2 28 85-2 LOINC ALBUMIN 3.7 G/DL L=3.5 H=5.0 17 51-7 LOINC TOTAL BILI 0.9 MG/DL L=0.2 H=1.3 1 975-2 LOINC CALCIUM 9.2 MG/DL L=8.6 H=10.3 78073-5 LOINC AGE 71 yrs GFR NonAA 66 GFR AA 80 eGFR 66 mL/min/1.7 eGFR AA* >60 CT ABD AND PELVIS W/CONTRAST - Completed : 11/17/2021 18:37 LOINC: EXAMINATION: CT ABD AND PELVIS W/CONTRAS T REASON FOR EXAM:Abdominal pain, abdominal distension, ventral hernia COMPARISON:None available.TECHNIQUE:CT of the abdomen and pelvis with intravenous contrast. Coronal reformats were obtained. 100 ml of Omnipaque-300 was administered intravenously.Automated exposure control was performed using [employer], which adjusts mA and/or kV according to patient size.FINDINGS:Lower thorax: Partially visualized moderate right and bpsl-bl-rfmtfkgy left pleural effusions with dependent bilateral lower lobe passive atelectasis versus less likely infection or asp iration. Partially visualized cardiomegaly. Partially visualized low-grade pericardial effusion.Vessels: Partially visualized coronary artery calcified atherosclerotic plaque. Extensive calcified plaque involving the abdominal aorta and its major branches. Pelvic phleboliths.Lymph nodes: Nonspecific shotty periportal lymph nodes.Liver: Heterogeneous hepatic steatosis/hepatitis.Gallbladder: Low-grade nonspecific gallbladder distension. Low-grade pericholecystic fat stranding and free fluid may be related to the fluid imbalance, if the patient has right upper quadrant abdominal pain consider a targeted ultrasound for further evaluation.Biliary tree: No intra or extrahepatic biliary ductal dilation. Pancreas: Unremarkable.Spleen: The spleen is at the upper limits of normal in size.Adrenal glands: Indeterminate 1.4 cm left adrenal mass, if the patient has history of malignancy a follow-up outpatient adrenal protocol CT of the abdomen is recommended, if the patient does not have a history of malignancy this may represent an adenoma and a 1 year follow-up adrenal protocol CT of the abdomen is suggested according to consensus criteria.Kidneys and ureters: The bilateral kidneys are slightly lobular in shape with renal cortical thinning.Bladder: Low-grade nonspecific distension.Bowel: No small bowel dilation. Diffuse intra-abdominal stranding suggesting edema. The appendix is unremarkable. Colonic diverticulosis. Portions of the small bowel and colon are nondistended and limited in evaluation.Peritoneum: Moderate free abdominopelvic fluid/ascites. No free air.Reproductive organs: Prostatectomy changes.Abdominopelvic wall: Diffuse subcutaneous stranding with tracking fluid compatible with soft tissue edema/anasarca. Abdominal rectus diastasis.Osseous structures: Degenerative changes of the partially visualized spine with caudal lumbar spine facet hypertrophy. Degenerative changes of the bilateral hips and sacroiliac joints. IMPRESSION:Bilateral pleural effusions, ascites, and anasarca compatible with a fluid imbalance.Innumerable additional potentially significant findings as detailed above. Reviewed and Electronically Signed by: YOANDY Nixigned Date/Time: 11/17/2021 7:23 PMJob ID#: [id number] CX CHEST 1 VIEW - Completed: 11/20/2021 06:08 LOINC: EXAMINATION:CX CHEST 1 VIEWREASON FOR EX AM:CHF; COMPARISON:November 18, 2021FINDINGS:Cardiomegaly is seen. The pulmonary vascularity is mildly prominent. Minimal density is seen in the lung bases. No consolidation is seen. No significant pleural effusion or pneumothorax is seen. No new airspace disease is seen. IMPRESSION:1.Cardiomegaly with mildly prominent pulmonary veins. 2.Mild airspace disease in the lung bases is stable. 3.No new airspace disease or consolidation is seen. Reviewed and Electronically Signed by: MD SHANTANU Neal, FACRSigned Date/Time: 11/20/2021 5:20 PMJob ID#: [id number] CX CHEST 1 VIEW - Completed: 11/21/2021 06:17 LOINC: EXAMINATION:CX CHEST 1 VIEWREASON FOR EX AM:CHF; COMPARISON:November 20, 2021FINDINGS:The heart size and pulmonary vascularity are stable. No pneumothorax is seen. The mediastinum is stable. There is minimal blunting of the costophrenic angles. Minimal airspace disease is seen in the lung bases. No focal airspace disease or consolidation is seen. IMPRESSION:1.Stable one- view chest. 2.The heart size and pulmonary vascularity are prominent. 3.Mild airspace disease in the lung bases is relatively stable. 4.No new airspace disease or consolidation is seen. Reviewed and Electronically Signed by: Wes Ayers MD DABR, FACRSigned Date/Time: 11/21/2021 12:02 PMJob ID#: [id number] CX CHEST 1 VIEW - Completed: 11/18/2021 06:11 LOINC: EXAMINATION:CX CHEST 1 VIEWREASON FOR EX AM:Dyspnea COMPARISON:11/17/2021FINDINGS:The cardiac silhouette is enlarged.Calcified aortic atherosclerotic plaque.Slightly reduced bilateral pleural effusions and bilateral basilar pulmonary opacities. No sizable pneumothorax.IMPRESSION:Slightly reduced bilateral pleural effusions and basilar pulmonary opacities.Reviewed and Electronically Signed by: Conchita Nix Date/Time: 11/18/2021 6:49 AMJob ID#: [id number] CX CHEST 1 VIEW - Completed: 11/17/2021 18:41 LOINC: EXAMINATION:CX CHEST 1 VIEWREASON FOR EX AM:Dyspnea COMPARISON:None.FINDINGS:The cardiac silhouette is enlarged.Calcified aortic atherosclerotic plaque.Low-grade bilateral pleural effusions with bilateral basilar pulmonary opacities.No pneumothorax.IMPRESSION:Low-grade bilateral pleural effusions with basilar atelectasis versus infection or aspiration. Follow-up to resolution is suggested.Reviewed and Electronically Signed by: Conchita Nix Date/Time: 11/17/2021 7:32 PMJob ID#: [id number] US ABD LTD (SINGLE ORGAN) - Completed: 0 11/18/2021 12:16 LOINC: EXAMINATION:US ABD LTD (SINGLE ORGAN)JUSTEN SON FOR EXAM:abnormal ct abnormal gallbladder on CT, dyspnea, pleural effusion, COVID 19 positive organ?: Gall bladderCOMPARISON:CT 11/17/2021TECHNIQUE:The right upper quadrant of the abdomen was examined with ultrasound.FINDINGS:Pancreas: Inadequately visualized due to a limited acoustic window. Gallbladder: Nonspecific gallbladder distension measuring 9.6 x 3.2 x 5.2 cm with wall thickening measuring up to 7 mm. Negative Solorzano sign per the simulation developer. No visualized sizable shadowing calculi.Common bile duct: The common bile duct measures 8 mm which is slightly prominent, suggest correlation with clinical findings such as jaundice and laboratory values to help exclude underlying occult biliary pathology.Additional findings: Partially visualized ascites. IMPRESSION:Gallbladder wall thickening may be reactive related to the fluid imbalance/ascites, the differential includes a viral illness or reactive changes related to an adjacent occult inflammatory process. If there is clinical concern for acalculous cholecystitis a HIDA scan may be considered. Additional findings as detailed above. Reviewed and Electronically Signed by: Conchita Nix Date/Time: 11/18/2021 2:49 PMJob ID#: [id number] US ECHO 2D COMP WITH DOPP AND COLOR - Co mpleted: 11/19/2021 11:50 LOINC: IBIS Clement [address]951 DIAGNOSTIC IMAGING REPORT Name: MANA KYLE LPatient Number: [id number]: 211 1Stay Type: O/PMedical Record Number: [id number] Date: 2Discharge Date: Date of : 9Age: 71 Sex: MOrdering Physician: AXEL PRES[facility]OTTcity [facility] [place] Physician: AXEL MCGEELOEFamily Physician: MAXINE Chenphone Number: [phone]-Sjr Number: [id number] Class: Tran Number: [id number] Location:Project Control Manager Date/Time: 11/20/2021 06:57:13 Guest Relation Officer Initials: DAMIAN unsigned transcriptions are preliminary reports and do notrepresent a Medical or Legal document US ECHO 2D COMP WITH DOPP AND COLOR [id number] COMPLETE: 11/19/2021 11:50:00 [id number] for ECHO: CHF ECHOCARDIOGRAM REPORTINDICATIONS FOR PROCEDURECHF and dyspnea.2-D AND M-MODE FINDINGSRhythm was tachycardic with sinus rhythm in the low 100s. Left ventricular systolic function was decreased with severe global left kira tricular hypokinesis with an ejection fraction in the 15-20 percent range. The left ventricle was moderately dilated. All four chambers were dilated with a left atrium of 4.7 cm in diameter and even larger right atrium at 5.1 cm. No marked valvular pathology was noted. Mild aortic sclerosis was present.DOPPLER FINDINGSThere was moderate tricuspid insufficiency with moderate pulmonary hypertension. The right ventricular systolic pressure was 59 mmHg. There is mild mitral, trivial tricuspid and pulmonic insufficiency.FINAL IMPRESSION1.FOUR CHAMBER DILATED CARDIOMYOPATHY WITH AN EJECTION FRACTION OF 15-20 PERCENT. 2.MODERATE TRICUSPID INSUFFICIENCY AND MODERATE PULMONARY HYPERTENSION. 3.MILD MITRAL INSUFFICIENCY.Reviewed and Electronically Signed by: aGyle Yates MD 11/20/21 13:53D: 11/19/2021 15:30:38Job#[id number]:AXEL El HOLDEN Social History Type Status Start Date End Date Code Code System Smoking History Never smoker (Never Smoked ) [id number] SNOMED-CT Vital Signs Vital Sign Value Unit Bollinger Value Bollinger Unit Date/Time Recent/Initial? Code Cod e System Body Mass Index 34.67 kg/m2 11/17/2021 22:37 Initial 11329-0 LOINC Systolic Blood Pressure 119 mm[Hg] 11/21/2021 11:51 Most Recent 8480-6 LOINC Diastolic Blood Pressure 77 mm[Hg] 11/21/2021 11:51 Most Recent 8462-4 LOINC Systolic Blood Pressure 123 mm[Hg] 11/17/2021 21:30 Initial 8480-6 LOINC Diastolic Blood Pressure 62 mm[Hg] 11/17/2021 21:30 Initial 8462-4 LOINC Body Surface Area 2.53 m2 11/17/2021 22:37 Initial 3140-1 LOINC Height 187.9600 cm 74.00 in 11/17/2021 22:37 Most Recent 8302-2 LOINC Height 187.9600 cm 74.00 in 11/17/2021 22:31 Initial 8302-2 LOINC O2 Saturation 10 0 % 11/21/2021 11:00 Most Recent 16201-2 LOINC O2 Saturation 10 0 % 11/17/2021 21:30 Initial 21374-2 LOINC Pulse 99.0 /min 0 11/21/2021 11:00 Most Recent 8867-4 LOINC Pulse 101.0 /min 0 11/17/2021 21:30 Initial 8867-4 LOINC Respiration 18 /min 11/21/2021 11:00 Most Recent 9279-1 LOINC Respiration 16 /min 11/17/2021 21:30 Initial 9279-1 LOINC Temperature 36.2 Yasmine 97.2 F 11/21/2021 11:00 Most Recent 8310-5 LOINC Temperature 36.1 Yasmine [age] F 11/17/2021 21:30 Initial 8310-5 LOINC Weight 130.09 kg 286.80 lbs 11/21/2021 09:31 Most Recent 03884-0 LOINC Weight 122.47 kg 270.00 lbs 11/17/2021 22:37 Initial 83318-7 LOINC Assessment You had the following problems: COVID- 19 BILATERAL PLEURAL EFFUSION (DISORDER) DYSPNEA Assessment and Plan: 1. Acute CHF: continue diuretic therapy -ECHO and trend BNP -monitor for arrythmia and check labs for TSH -rule out Troponin/AMI, no symptoms -will need to follow up with PCP and Cardiology 2. HTN/HLD: restart home meds -monitor heart rate and adjust meds based on Echo results 3/ DM type II: start home meds and SSI novolog -FSBS and monitor -follow up PCP 4. Right TKR: PT and OT and continue recovery -will need HH for ongoing care, CHF follow up and medication management 5. Dispo: DC once CHF resolved Assessment and Plan: 1. Acute CHF: continue diuretic therapy -ECHO pending, better BNP -no arrythmia, stable TSH/T4 -negative Troponin/AMI, no symptoms - will need to follow up with PCP and Cardiology -continue diuresis and look at using lymphedema wraps to help move fluid and improve mobility -if stable in AM may look at placing prior to DC vs outpt Rehab placement 2. HTN/HLD: cont home meds -monitor heart rate -adjust meds based on Echo results 3/ DM type II: cont home meds and SSI novolog -FSBS and monitor -follow up PCP -good HGBA1c 4. Right TKR: PT and OT and continue recovery -will need HH for ongoing care, 5. Dispo: DC once CHF resolved Assessment and Plan: 1. Acute CHF: continue diuretic therapy and increase doses with wraps -ECHO noted, LVEF <20% -occasional arrythmia, -negative Troponin/AMI, no symptoms -will need to follow up with PCP and Cardiology -wraps today 2. HTN/HLD: cont home meds -monitor heart rate - benefit from BB and ACEI, ? oupt addition of Enestro 3/ DM type II: cont home meds and SSI novolog -FSBS and monitor -follow up PCP -good HGBA1c -may benefit from SGLT2 for CHF and DM 4. Right TKR: PT and OT and continue recovery -will need HH for ongoing care, 5. Dispo: DC once CHF resolved Hospital Discharge Instructions Should you have any questions prior to discharge, please contact a member of your healthcare team. If you have left the hospital and have any questions, please contact your primary care physician. FOLLOW UP APPOINTMENT: Follow-up with orthopedics and primary care provider as planned HOME MEDICATION INSTRUCTIONS: Continue home medications as instructed. HOME MEDS RETURNED TO PATIENT: N/A. HOME DIET: Regular diabetic and low sodium diet PERSONAL ITEMS RETURNED: Yes. INSTRUCTIONS GIVEN AND DISCHARGE TO: Patient. INSTRUCTIONS GIVEN BY (TYPE IN NAME AND DATE) Prateek Mg RN ACTIVITY INSTRUCTIONS(list limitations): Activity as Tolerated, legs wraps with occupational therapy outpatient SPECIAL INSTRUCTIONS: Monitor and log your heart rate, blood pressure, and weight daily. Call your doctor for a weight gain of 3 lbs in one day or 5 lbs in one week. Outpatient labs recommended: CBC, Chem 7, BNP, and CXR with primary care provider. SCRIPTS WRITTEN BY DOCTOR GIVEN TO PATIENT? None CONTACT PHYSICIAN IF YOU EXPERIENCE ANY: Fever, chills, night sweats, weakness, chest pain, heart palpitations. racing heart, shortness of breath, increased leg pain or swelling, changes in level of consciousness, nausea, vomiting, diarrhea, weakness, or any other concerns you may have. PRIMARY CARE PROVIDER: Dr. Madera- [place] FOLLOW-UP OUTPATIENT SERVICES: Physical therapy, occupational therapy, and lymphedema wraps. Reason For Referral No Data Found Hospital Course You were admitted to [facility] on 11/20/2021 15:35 with a principal diagnosis of Hypertensive heart disease with heart failure You were discharged from [facility] on 11/21/2021 14:20 Hospital Course by Problem: The patient was noted to be in progressive CHF decline and weakness. He was started on IV diuresis. He felt better and had no signs of infection. Due to risk of wound injury after diuresis OT was consulted to assist in control of LE edema. The patient was seen by PT and OT to ensure recovery from right TKR. He had no pain and did well with therapy. He was stable in DM, BP and HR. He had occasional asymptomatic arrythmia. He is to follow up with [facility] after DC. He is to do daily weights, HR and BP for PC and Cardiology follow up. Medications Medication Start Date En d Date Route Frequency Dose Code Code System Medication Instructions NORCO [HYDROCODONE/A PAP] 5/325MG TAB 11/17/2021 Unknown BY [facility] PRN Q 6 HRS 1 TAB [id number] RxNorm 1 TAB BY MOUTH EVERY 6 HRS NEEDE ZOLPIDEM [AMBIEN] TA BLET : 5 MG 11/17/2021 Unknown BY [facility] HS 10 MG [id number] RxNorm 10 MG BY MOUTH AT BE DTIME FUROSEMIDE (LASIX): 40 MG/4 ML VIAL 11/17/2021 11/20/2021 IV PUSH DAILY 40 MG [id number] RxNorm 40 MG IV PUSH DAILY BUMETANIDE [BUMEX] I NJ: 1 MG/4 ML VIAL 11/18/2021 11/18/2021 IV PUSH X1 1 MG [id number] RxNorm 1 MG IV PUSH NOW ASPIRIN ENTERIC COAT ED TAB : 325MG 11/18/2021 Unknown BY [facility] DAILYM 325 MG [id number] RxNorm 325 MG B Y MOUTH DAILY WITH A MEAL CYCLOBENZAPRINE (FLE XERIL)TAB: 10MG 11/18/2021 Unknown BY [facility] TID 10 MG [id number] RxNorm 10 MG BY MOUTH THREE TIMES A DAY GLIPIZIDE [GLUCOTROL ] TABLET: 5 MG 11/18/2021 Unknown BY [facility] DAILY 5 MG [id number] RxNorm 5 MG BY MOUTH DAILY NIFEDIPINE XL [PROCA RDIA XL] TAB: 30 MG 11/18/2021 Unknown BY [facility] DAILY 30 MG [id number] RxNorm 30 MG BY MOUTH DAILY PANTOPRAZOLE [PROTON IX] TABLET : 40 MG 11/18/2021 Unknown BY [facility] DAILY 40 MG [id number] RxNorm 40 MG BY MOUTH DAILY SIMVASTATIN [ZOCOR] TABLET: 20 MG 11/18/2021 Unknown BY [facility] HS 40 MG [id number] RxNorm 40 MG BY MOUTH AT BEDTIME INSULIN [NOVOLOG] 10 0UNITS/ML (SQ) 10ML 11/18/2021 Unknown SUBCUTANEOUS OPTIONS PRN [id number] RxNorm 0 Unit(s) SUBCUTANEOUS OPTIONS NEEDED BUMETANIDE [BUMEX] I NJ: 1 MG/4 ML VIAL 11/19/2021 11/19/2021 IV PUSH X1 1 MG [id number] RxNorm 1 MG IV PUSH NOW FUROSEMIDE (LASIX): 40 MG/4 ML VIAL 11/20/2021 11/21/2021 IV PUSH BIDLASIX 40 MG [id number] RxNorm 40 MG IV PUSH BUMETANIDE [BUMEX] I NJ: 1 MG/4 ML VIAL 11/20/2021 11/20/2021 IV PUSH X1 1 MG [id number] RxNorm 1 MG IV PUSH NOW MAALOX EXTRA STRENGT H LIQUID: PER ML 11/20/2021 Unknown BY [facility] PRN 30 ML [id number] RxNorm 30 ML BY MOUTH NEEDED TERAZOSIN [HYTRIN] C APSULE : 5 MG 11/20/2021 Unknown BY [facility] HS 5 MG [id number] RxNorm 5 MG BY MOUTH AT BEDTIME HYDROcodone bitartra te-acetaminophen 5MG-325MG Oral Tablet 11/21/2021 Unknown ORAL FOUR TIMES A DAY 1 unit(s) [id number] RxNorm 1 EACH ORAL FOUR TIMES A DAY glipiZIDE 5MG Oral T ablet 11/21/2021 Unknown ORAL DAILY 5 MILLIGRAMS [id number] RxNorm 5 MILLIGRAMS ORAL DA NATASHA Terazosin HCl 2MG Or al Capsule 11/21/2021 Unknown ORAL DAILY 2 MILLIGRAMS 33376 7 RxNorm 2 MILLIG TESSIE ORAL DAILY NIFEdipine 30MG Oral Tablet, Extended Release 11/21/2021 Unknown ORAL DAILY 30 MILLIGRAMS [id number] RxNorm 30 MILLIGRAMS ORAL DAILY Lasix 40MG Oral Tablet 11/21/2021 Unknown ORAL DAILY 80 MILLIGRAMS RxNorm 80 ALEC GRAMS ORAL DAILY Simvastatin 80MG Ora l Tablet 11/21/2021 Unknown ORAL AT BEDTIME 80 MILLIGRAMS [id number] RxNorm 80 ALEC GRAMS ORAL AT BEDTIME Omeprazole 20MG Oral Capsule, Delayed Release 11/21/2021 Unknown ORAL AT BEDTIME 20 MILLIGRAMS [id number] RxNorm 20 MILLIGRAMS ORAL AT BEDTIME Cyclobenzaprine 10MG Oral Tablet 11/21/2021 Unknown ORAL AT BEDTIME 10 MILLIGRAMS [id number] RxNorm 10 ALEC GRAMS ORAL AT BEDTIME Ambien 10MG Oral Tablet 11/21/2021 Unknown ORAL AT BEDTIME 10 MILLIGRAMS [id number] RxNorm 10 ALEC GRAMS ORAL AT BEDTIME Meloxicam 15MG Oral Tablet 11/21/2021 Unknown ORAL TWO TIMES A DAY 15 MILLIGRAMS [id number] RxNorm 15 ALEC GRAMS ORAL TWO TIMES A DAY Aspirin 325MG Oral T ablet 11/21/2021 Unknown ORAL NEEDED 325 MILLIGRAMS [id number] RxNorm 325 MILL IGRAMS ORAL NEEDED FUROSEMIDE [LASIX] T ABLET: 40 MG 11/21/2021 Unknown BY [facility] DAILY 40 MG [id number] RxNorm 40 MG BY MOUTH DAILY Procedures No Data Found Implants No Data Found Problems Problem Start Date Resol alexia Date Status Code Code System COVID-19 active 286018018 SNOMED-CT BILATERAL PLEURAL EFFUSION (DISORDER) active 265884510 SNOMED- CT DYSPNEA active 717191514 SNOMED-CT Allergies Allergy Substance Reaction Severity Start Date Concern Status Code Code System No Known Drug Allergies Active 230568473 SNOMED- CT Plan of Treatment No Data Found Encounters Encounter Diagnosis Start Date Code Code System Hypertensive heart d isease with heart failure 11/20/2021 SNOMED-CT Goals No Data Found Discharge Medications No Data Found Discharge Diagnosis Discharge Diagnosis Diagnosis Code Start Date Hypertensive heart disease with heart failure I110 11/20/2021 Health Concerns Section No Data Found
--- NOTE | 2022-01-09 17:58 | Consultation-Cardiology ---
HPI-Cardiology Cardiology Consultation: Date of Consultation 01/09/22 Date of Admission 01/09/22 Attending Physician Samanta Blank DO Admitting Physician Unknown Consulting Physician LAILA RAMOS JR, MD HPI: Time Seen by a Provider: 17:53 Chief Complaint: Reason for consultation: Heart failure. I had the pleasure of seeing Avel on the inpatient rehabilitation unit at [facility] in [place], [place] today. He has newly diagnosed severe dilated nonischemic cardiomyopathy with class III-IV heart failure. About 1 month ago he was visiting his son and [place] and began having bilateral lower extremity edema as well as worsening dyspnea on exertion. He went to the local [facility] and was found to be in heart failure. This was a new diagnosis for the patient. He underwent an echocardiogram that showed severe left ventricular systolic dysfunction. He was subsequently transferred to another hospital where he underwent a cardiac catheterization and was not found to have any significant coronary artery disease. The second hospital attempted to place patient on guideline directed medical therapy but then he went into acute kidney injury and they were having difficulty diuresing the patient. He was ultimately sent to [facility] and [place], [place] to the advanced heart failure team. While he was there he developed atrial fibrillation and was started on apixaban. He was slowly started on guideline directed medical therapy. Yesterday he u nderwent a defibrillator implantation. He was optimized as much as needed in the hospital and was then transferred to our facility for inpatient physical rehabilitation. He still has a fair amount of peripheral edema in his legs. He denies any chest discomfort. He had a fair amount of dyspnea on exertion but this has been improving. He denies paroxysmal nocturnal dyspnea, orthopnea, palpitations, lightheadedness, or syncope. Because of the heart failure, a cardiology consultation was requested. Certain portions of this document may have been dictated utilizing voice recognition technology. Inherent to this technology, typographical and grammatical errors may exist. As much as I am diligent to identify and correct these mistakes, some errors may remain in the document. Review of Systems-Cardiology Review of Systems Other comments Review of 10 organ systems is as per the history of present illness, otherwise negative. MBQ-Pcxegq-Yutkxy Hx Patient Social History Marrital Status: Smoking Status: Never a Smoker Have you traveled recently?: No Alcohol Use?: No Pt feels they are or have been: No Past Medical History PMH As described under Assessment. Family Medical History Family Medical History: The patient does not know of any family history of premature coronary artery disease in first-degree relatives. Allergies and Home Medications Allergies Coded Allergies: No Allergy Information Available (Unverified , 01/09/22) Patient Home Medication List Home Medication List Reviewed: Yes Amiodarone HCl (Amiodarone HCl) 100 Mg Tablet, 100 MG PO DAILY, (Reported) Entered as Reported by: RAYMON CALDERON on 01/09/221350 Last Action: Converted Apixaban (Eliquis) 5 Mg Tablet, 5 MG PO BID, (Reported) Entered as Reported by: RAYMON CALDERON on 01/09/221351 Last Action: Continued Aspirin (Aspirin EC) 81 Mg Tablet.dr, 81 MG PO DAILY, (Reported) Entered as Reported by: RAYMON CALDERON on 01/09/221352 Last Action: Continued Cyclobenzaprine HCl (Cyclobenzaprine HCl) 10 Mg Tablet, 10 MG PO TID PRN for MUSCLE SPASMS, (Reported) Entered as Reported by: RAYMON CALDERON on 01/09/221353 Last Action: Continued Empagliflozin (Jardiance) 10 Mg Tablet, 10 MG PO DAILY, (Reported) Entered as Reported by: RAYMON CALDERON on 01/09/221353 Last Action: Continued Eplerenone (Eplerenone) 25 Mg Tablet, 25 MG PO DAILY, (Reported) Entered as Reported by: RAYMON CALDERON on 01/09/22 135 Last Action: Converted Fluticasone Propionate (Fluticasone Propionate) 50 Mcg/Actuation [place].susp, 1 SPRAY NSEACH DAILY, (Reported) Entered as Reported by: RAYMON CALDERON on 01/09/221356 Last Action: Converted Furosemide (Furosemide) 40 Mg Tablet, 40 MG PO DAILY, (Reported) Entered as Reported by: RAYMON CALDERON on 01/09/221357 Last Action: Continued Levothyroxine Sodium (Levothyroxine) 25 Mcg Capsule, 25 MCG PO DAILY, (Reported) Entered as Reported by: RAYMON CALDERON on 01/09/221357 Last Action: Converted Metoprolol Succinate (Metoprolol Succinate) 25 Mg Tab.er.24h, 12.5 MG PO DAILY, (Reported) Entered as Reported by: RAYMON CALDERON on 01/09/22 135 Last Action: Continued Sacubitril/Valsartan (Entresto 49 mg-51 mg Tablet) 49 Mg-51 Mg Tablet, 1 TAB PO BID, (Reported) Entered as Reported by: RAYMON CALDERON on 01/09/22 135 Last Action: Converted Simvastatin (Simvastatin) 10 Mg Tablet, 10 MG PO DAILY, (Reported) Entered as Reported by: RAYMON CALDERON on 01/09/221399 Last Action: Continued Tamsulosin HCl (Flomax) 0.4 Mg Cap, 0.4 MG PO DAILY, (Reported) Entered as Reported by: RAYMON CALDERON on 01/09/221399 Last Action: Continued Tramadol HCl (Tramadol HCl) 50 Mg Tablet, 100 MG PO Q6H PRN for PAIN-MODERATE (5-7), (Reported) Entered as Reported by: RAYMON CALDERON on 01/09/22 1401 Last Action: Continued Zolpidem Tartrate (Ambien) 10 Mg Tablet, 5 MG PO HS PRN for SLEEP, (Reported) Entered as Reported by: RAYMON CALDERON on 01/09/22 140 Last Action: Converted Exam Vital Signs Vital Signs Date Time Temp Pulse Resp B/P (MAP) Pulse Ox O2 Delivery O2 Flow Rate FiO2 01/09/22 17:11 Room Air 01/09/22 15:25 36.7 94 20 98/63 (75) 99 Physical Exam General: Alert. No acute distress. Well nourished and appears stated age. He is obese. Eye: Extraocular movements are intact. Conjunctivae are clear. There are no xanthelasma. HENT: Normocephalic. Atraumatic. Carotid pulsations 2/2 without bruits. Neck: Jugular venous pressure does not appear elevated. No thyromegaly appreciated. Respiratory: Lungs are clear to auscultation. Respirations are non-labored. Breath sounds are equal. Symmetrical chest wall expansion. Cardiovascular: Normal rate. Regular rhythm. No murmur. No gallop. Point of maximal impulse is not appear displaced. Good pulses equal in all extremities. 2+ bilateral pretibial edema without venous stasis changes. Gastrointestinal: Soft. Normal bowel sounds. Skin: Skin turgor is normal. There is no pallor. Musculoskeletal: No kyphosis or scoliosis appreciated. Neurologic: Alert and oriented to person, place, time. Cranial nerves 3-12 appear grossly intact. The patient has good motor tone strength in the upper and lower extremities bilaterally. Psychiatric: Cooperative. Appropriate mood & affect. Labs Laboratory Tests Test 01/09/22 16:59 Range/Units Glucometer 154 H 70-110 MG/DL Diagnosis/Problems Diagnosis/Problems (1) Chronic HFrEF (heart failure with reduced ejection fraction) Assessment & Plan: This is a new diagnosis in this patient. This is due to nonischemic cardiomyopathy. All of his guideline directed medications will be resumed. (2) Nonischemic cardiomyopathy Assessment & Plan: He has newly diagnosed nonischemic cardiomyopathy of unknown known etiology. He did have COVID earlier in the year but it was 2 months before he developed his current symptoms so unclear whether or not this could have anything to do with the COVID infection. All of his guideline directed medical therapy will be resumed. He was taking eplerenone at the outside facility and we do not have this on formulary. His may have a bottle at home and we have asked patient have his bring all of his new medications to the hospital. He does have a prophylactic defibrillator in place. He has an appointment to see the advanced heart failure team at [facility] in [place] in 1 month. I told him it would not be a bad idea to also see a local label drier since we are about 2 hours away from [place]. I gave him my contact information. (3) Persistent atrial fibrillation Assessment & Plan: This was also a new diagnosis in the patient. His apixaban will be continued. He was also started on amiodarone will she will need to be tapered down over time. I have ordered an electrocardiogram for the morning. (4) Pulmonary hypertension Assessment & Plan: His outside echocardiogram report stated there were elevated right-sided heart pressures. This was likely due to the acute heart failure. This will need to be followed longitudinally. (5) Primary hypertension Assessment & Plan: We will resume his guideline directed medical therapy for the heart failure which should get his blood pressure well controlled. (6) Mixed hyperlipidemia Assessment & Plan: Resume statin medication. I ordered a lipid panel for the morning. (7) Type 2 diabetes mellitus with complication Assessment & Plan: This will be managed by the hospitalist. His Jardiance should be resumed. There is good data that this medication is not only effective for diabetes but also helps reduce heart failure admissions. LAILA RAMOS JR, MD January 09, 2022 17:58
[2022-01-09 19:47] VITALS: BP 98/66
[2022-01-09] MEDS: DOCUSATE SODIUM 100 MG (COLACE) CAP PO SCH (20:24)
[2022-01-09] MEDS: SACUBITRIL/VALSARTAN 24/26 MG (ENTRESTO) TABLET PO SCH (20:25)
[2022-01-09] MEDS: APIXABAN 5 MG (ELIQUIS) TABLET PO SCH (20:25)
[2022-01-09] MEDS: SENNA W/DOCUSATE (SENOKOT S) TABLET PO SCH (20:26)
[2022-01-09] MEDS: polyethylene glycoL POWDER 17 GM (MIRALAX) PACK PO SCH (20:26)
[2022-01-09] MEDS ORDERED: NON-FORMULARY MEDICATION 1 EA EA (Sacubitril/Valsartan (Entresto 49 mg-51 mg Tablet) 1 TAB PO SCH (21:00)
[2022-01-09] MEDS: ACETAMINOPHEN 325 MG TABLET PO PRN (21:33)
[2022-01-09] MEDS: ZOLPIDEM 5 MG (AMBIEN) TAB PO PRN (21:33)
[2022-01-09] MEDS: CYCLOBENZAPRINE 10 MG (FLEXERIL) TAB PO PRN (21:33)
[2022-01-10] MEDS: LEVOTHYROXINE 25 MCG (LEVOTHROID) TAB PO SCH (06:14)
[2022-01-10 06:21] LABS: BASOPHILS # (AUTO) 0.1 10^3/uL (0.0-0.1); BASOPHILS % (AUTO) 2 % (0-10); EOSINOPHILS # (AUTO) 0.2 10^3/uL (0.0-0.3); EOSINOPHILS % (AUTO) 3 % (0-10); HEMATOCRIT 35 % (40-54); HEMOGLOBIN 11.4 g/dL (13.3-17.7); LYMPHOCYTES # (AUTO) 1.7 10^3/uL (1.0-4.0); LYMPHOCYTES % (AUTO) 26 % (12-44); MEAN CORPUSCULAR HEMOGLOBIN 28 pg (25-34); MEAN CORPUSCULAR HGB CONC 33 g/dL (32-36); MEAN CORPUSCULAR VOLUME 87 fL (80-99); MEAN PLATELET VOLUME 10.5 fL (9.0-12.2); MONOCYTES # (AUTO) 0.6 10^3/uL (0.0-1.0); MONOCYTES % (AUTO) 9 % (0-12); NEUTROPHILS % (AUTO) 60 % (42-75); PLATELET COUNT 265 10^3/uL (130-400); WHITE BLOOD COUNT 6.6 10^3/uL (4.3-11.0)
[2022-01-10 06:27] LABS: POTASSIUM 3.4 MMOL/L (3.6-5.0)
[2022-01-10 06:28] LABS: ALBUMIN 3.2 GM/DL (3.2-4.5); CALCIUM 8.7 MG/DL (8.5-10.1)
[2022-01-10 06:30] LABS: TOTAL PROTEIN 6.1 GM/DL (6.4-8.2)
[2022-01-10 06:32] LABS: BILIRUBIN,TOTAL 1.1 MG/DL (0.1-1.0)
[2022-01-10 06:34] LABS: CREATININE SERUM 1.02 MG/DL (0.60-1.30)
--- NOTE | 2022-01-10 06:39 | Individualized Plan of Care ---
Individualized Plan of Care Rehab Nursing IPOC Order Admission Date January 09, 2022 at 15:05 Current Orders Orders Admission Order(Inpt,Obs,Sdc) (01/09/22 11:49) Vital Signs: Per Unit Policy ( ,16,00 (01/09/22 11:49) Inder Connell (01/09/22 11:49) Sequential Compression Device (01/09/22 11:49) Manager Budget-Inpt Rehab Con (01/09/22 11:49) Rehab Nursing Orders-Ipoc (01/09/22 11:49) Physical Therapy Rehab Orders (01/09/22 11:49) Occupational Therapy Rehab Ord (01/09/22 11:49) Speech Therapy Rehab Orders (01/09/22 11:49) Cbc With Automated Diff (01/10/22 06:00) Comprehensive Metabolic Panel (01/10/22 06:00) Precautions (Aru) (01/09/22 11:49) Weekly Weight WEEK (01/09/22 11:49) Rehab-Intensity Of Therapy (01/09/22 11:49) Initiate Admission Nursing Pro .admission (01/09/22 11:49) Alprazolam Tablet (Xanax Tablet) (01/09/22 12:00) Calcium Carbonate Chew Tablet (Antacid C (01/09/22 12:00) Diphenhydramine Tablet (Benadryl Tablet) (01/09/22 12:00) Docusate Sodium Capsule (Colace Capsule) (01/09/22 21:00) Docusate Sodium Capsule (Colace Capsule) (01/09/22 12:00) Bisacodyl Suppository (Dulcolax Supposit (01/09/22 12:00) Lactulose Oral Solution (Enulose Oral So (01/09/22 12:00) Na Phos/Na Biphos Enema (Fleet Enema Lavell (01/09/22 12:00) Guaifenesin/Codeine Syrup (Robitussin Ac (01/09/22 12:00) Loperamide Tablet (Imodium Tablet) (01/09/22 12:00) Melatonin Tablet (Melatonin Tablet) (01/09/22 12:00) Polyethylene Glycol Powder Pkt (Miralax (5/6/22 21:00) Ondansetron Oral Dissolve Tab (Zofran (01/09/22 12:00) Senna S Tablet (Senokot S Tablet) (01/09/22 21:00) Acetaminophen Tablet/Caplet (Tylenol T (01/09/22 12:00) Code/Resuscitation (01/09/22 11:49) Transfer - Bed/Room/Location (01/09/22 15:06) Apixaban Tablet (Eliquis Tablet) (01/09/22 21:00) Aspirin Enteric Coated Tablet (Ecotrin T (01/10/22 09:00) Rx-Cyclobenzaprine Tablet (Rx-Flexeril T (01/09/22 15:15) Empagliflozin Tablet (Jardiance Tablet) (01/10/22 09:00) Furosemide Tablet (Lasix Tablet) (01/10/22 09:00) Metoprolol Succinate (Xl) Tab (Toprol Xl (01/10/22 09:00) Simvastatin Tablet (Zocor Tablet) (01/10/22 09:00) Tamsulosin Capsule (Flomax Capsule) (01/10/22 09:00) Tramadol Tablet (Ultram Tablet) (01/09/22 15:15) (Nf) Amiodarone Hcl (01/10/22 09:00) (Nf) Eplerenone (01/10/22 09:00) (Nf) Fluticasone Propionate (01/10/22 09:00) (Nf) Levothyroxine Sodium (Levothyroxine (01/10/22 09:00) (Nf) Sacubitril/Valsartan (Entresto 49 M (01/09/22 21:00) (Nf) Zolpidem Tartrate (Ambien) (01/09/22 15:15) Consult Cardiology (01/09/22 15:08) Ekg Tracing (01/09/22 15:08) Amiodarone Tablet (Cordarone Tablet) (01/10/22 09:00) Levothyroxine Tablet (Synthroid Tablet) (01/10/22 06:30) Cyclobenzaprine Tablet (Flexeril Tablet) (01/09/22 17:45) General/Regular (01/09/22 Dinner) Zolpidem Tablet (Ambien Tablet) (01/09/22 17:45) Fluticasone Nasal [place] (Flonase Nasal S (01/10/22 09:00) Sacubitril/Valsartan 24/26 Mg (Entresto (01/09/22 21:00) Non-Formulary Medication (Non-Formulary (01/10/22 09:00) Ekg Tracing (01/09/22 17:52) Lipid Panel (01/10/22 05:00) Nursing Communication (Order) (01/09/22 17:58) Intake & Output 06,14,22 (01/09/22 19:01) Patient Visit (01/09/22 ) Pt Eval Moderate Complexity (01/09/22 ) Potassium Chloride (Tablet) (Klor Con Ta (01/10/22 11:00) Sacubitril/Valsartan 24/26 Mg (Entresto (01/10/22 21:00) Chest Pa/Lat (2 View) (01/12/22 06:00) Patient Visit (01/10/22 ) Functional Activities, Ea 15 (01/10/22 ) Exercise Therap, Ea 15 Min (01/10/22 ) Urinalysis (01/10/22 15:10) Urine Culture (01/10/22 15:10) Loratadine Tablet (Claritin Tablet) (01/10/22 18:15) Loratadine Tablet (Claritin Tablet) (01/11/22 09:00) Fluconazole Tablet (Diflucan Tablet) (01/11/22 09:00) Rehab Nursing Orders: Ongoing Assess. of Cognitive Status, Ongoing Assess. of Function Status, Bladder Management, Bladder Scan, Bladder Training, Bowel Management, Bowel Training, Disease Management & Educaiton, DVT Prophylaxis, Fall Prevention, Fluid/Electrolyte/Nutrition Mgmt, Infection Prevention, Medication Management & Education, Management of Risks & Complications, Nutrition Management, Pain Management, Patient/Family Support, Safety Management, Wound Management Intensity of Therapy to be met Patient to be seen: Min.3h per day/5 of 7d PT IPOC Problem List: Activity Tolerance, Functional Strength, Safety, Balance, Gait, Transfer, Bed Mobility, ROM Treatment Plan: Continue Plan of Care Bed Mobility, Education, Functional Activity Saul, Functional Strength, Group Therapy, Gait, Safety, Therapeutic Exercise, Transfers Treatment Duration: January 30, 2022 Frequency: At least 5 of 7 days/Wk (IRF) Estimated Hrs Per Day: 1.5 hours per day OT IPOC Problems: Decreased UE Strength, Impaired Cognition, Impaired Coordination, Impaired Funct Balance OT Treatment, Training and Edu: Yes Plan of Care: ADL Retraining, Functional Mobility Treatment Duration: January 10, 2022 Frequency: Modified Program (IRF) Estimated Hrs Per Day: Other ST IPOC Speech Therapy Treatment Plan: Discontinue ST Treatment Duration: January 10, 2022 Frequency: Modified Program (IRF) Estimated Hrs Per Day: Other Manager Budget/Case Mgmt Manager Budget/Case Managemen: Discharge Planning Dietitian/Podiatrist Dietitian/Podiatrist to monitor nutritional status and make changes and/or recommendations as needed and work with speech pathology on dietary upgrades as the occur. Physician IPOC Medical Issues being managed closely and that require the 24 hour availability of a physician: Patient with recent congestive heart failure and significant issues since COVID will require close monitoring for any type of decompensation along with cardiology management Medical Issues: Bowel/Bladder Function, DVT Prophylaxis, Falls Precautions, Fluid/Electrolyte/Nutrition Balance, Infection Protection, Pain Management Brief Synthesis of Preadmission Screen, Post-Admission Evaluation, and Therapy Evaluations: PT and OT will focus on regaining function with assistive devices in order to regain function to return back to independent living Medical Prognosis: Fair Anticipated Length of Stay: 7 days GUERRERO COLE DO January 10, 2022 06:39
--- NOTE | 2022-01-10 06:39 | PM&R Progress Note ---
Subjective HPI/CC On Admission Date Seen by Provider: January 10, 2022 Time Seen by Provider: 11:00 Subjective/Events-last exam 01/10/2022: Patient doing well at bedside reviewing meds with nurse Changing out catheter tubing UA sent down will hold off on treatment until culture known Yeast noted so we will start Diflucan Review of Systems General: Fatigue, Malaise Objective Exam Vital Signs Vital Signs Date Time Temp Pulse Resp B/P (MAP) Pulse Ox O2 Delivery O2 Flow Rate FiO2 01/10/22 20:45 Room Air 01/10/22 19:21 36.4 89 16 94/63 (73) 98 Capillary Refill : General Appearance: No Apparent Distress, WD/WN, Chronically ill, Obese HEENT: PERRL/EOMI, Normal ENT Inspection, Pharynx Normal Neck: Full Range of Motion, Normal Inspection, Non Tender, Supple, Carotid Bruit Respiratory: Chest Non Tender, Lungs Clear, No Accessory Muscle Use, No Respiratory Distress, Decreased Breath Sounds Cardiovascular: No Edema, No Gallop, No JVD, No Murmur, Normal Peripheral Pulses, Irregularly Irregular Gastrointestinal: Normal Bowel Sounds, No Organomegaly, No Pulsatile Mass, Non Tender, Soft Back: Normal Inspection, No CVA Tenderness, No Vertebral Tenderness Extremity: Normal Capillary Refill, Normal Inspection, Normal Range of Motion, Non Tender, No Calf Tenderness, No Pedal Edema Neurologic/Psychiatric: Alert, Oriented x3, No Motor/Sensory Deficits, Normal Mood/Affect Skin: Normal Color, Warm/Dry Lymphatic: No Adenopathy Results/Procedures Lab Laboratory Tests 01/10/22 06:05 Patient resulted labs reviewed. FIM Transfers Therapy Code Descriptions/Definitions Functional [place] Measure: 0=Not Assessed/NA 4=Minimal Assistance 1=Total Assistance 5=Supervision or Setup 2=Maximal Assistance 6=Modified [place] 3=Moderate Assistance 7=Complete IndependenceSCALE: Activities may be completed with or without assistive devices. 1-Padikklteh-kqvpcky completes the activity by him/herself with no assistance from a helper. 5-Set-up or Clean-up Assistance-helper sets up or cleans up; patient completes activity. [place] assists only prior to or following the activity. 4-Supervision or Touching Assistance-helper provides verbal cues and/or touching/steadying and/or contact guard assistance as patient completes activity. Assistance may be provided throughout the activity or intermittently. 3-Partial/Moderate Assistance-helper does LESS THAN HALF the effort. [place] lifts, holds or supports trunk or limbs, but provides less than half the effort. 2-Substantial/Maximal Assistance-helper does MORE THAN HALF the effort. [place] lifts or holds trunk or limbs and provides more than half the effort. 9-Tscjpipdh-qyxjlk does ALL the effort. Patient does none of the effort to complete the activity. Or, the assistance of 2 or more helpers is required for the patient to complete the activity. If activity was not attempted, code reason: 7-Patient Refused. 9-Not Applicable-not attempted and the patient did not perform the activity before the current illness, exacerbation or injury. 10-Not Attempted due to Environmental Limitations-(lack of equipment, weather restraints, etc.). 88-Not Attempted due to Medical Conditions or Safety Concerns. Roll Left to Right (QC): 3 Sit to Lying (QC): 4 Sit to Stand (QC): 2 Chair/Oof-em-Aicpm Xfer(QC): 2 Car Transfer (QC): 2 Gait Training Does the Patient Walk?: Yes Walk 10 feet (QC): 3 Walk 50 ft with 2 Turns(QC): 88 Walk 150 ft (QC): 88 Walking 10ft/uneven surface-QC: 88 Gait Assistive Device: Cane Large Base Quad Wheelchair Training Does the Pt Use a Wheelchair?: Yes Wheel 50 ft with 2 turns (QC): 1 Wheel 150 ft (QC): 1 Stair Training 1 Step (curb) (QC): 88 4 Steps (QC): 88 12 Steps (QC): 88 Balance Picking up an Object (QC): 88 Assessment/Plan Assessment and Plan Assess & Plan/Chief Complaint Assessment: Cardiac debility Nonischemic cardiomyopathy Persistent atrial fibrillation Previous COVID infection Hypoxia BPH Hypothyroidism Diabetes Prostate cancer history Elevated liver enzymes Insomnia Obesity History of acute kidney injury Hyponatremia Plan: Rehab protocol Dr. Kramer consult Supportive care 01/11/22: Monitor closely UTI treatment (1) Chronic HFrEF (heart failure with reduced ejection fraction) (2) Nonischemic cardiomyopathy (3) Persistent atrial fibrillation (4) Primary hypertension (5) Mixed hyperlipidemia (6) Pulmonary hypertension (7) Type 2 diabetes mellitus with complication GUERRERO COLE DO January 10, 2022 06:39
[2022-01-10 07:12] VITALS: BP 103/63
[2022-01-10] MEDS ORDERED: NON-FORMULARY MEDICATION 1 EA EA PO SCH (09:00)
[2022-01-10] MEDS ORDERED: NON-FORMULARY MEDICATION 1 EA EA (Levothyroxine Sodium (Levothyroxine) 25 MCG) PO SCH (09:00)
[2022-01-10] MEDS ORDERED: AMIODARONE HCL 100 MG PO SCH (09:00)
[2022-01-10] MEDS ORDERED: EPLERENONE 25 MG PO SCH (09:00)
[2022-01-10] MEDS ORDERED: NON-FORMULARY MEDICATION 1 EA EA (Fluticasone Propionate 1 SPRAY) NSEACH SCH (09:00)
[2022-01-10] MEDS: TAMSULOSIN 0.4 MG (FLOMAX) CAP PO SCH (09:48)
[2022-01-10] MEDS: EMPAGLIFLOZIN 10 MG TABLET (JARDIANCE) PO SCH (09:48)
[2022-01-10] MEDS: SACUBITRIL/VALSARTAN 24/26 MG (ENTRESTO) TABLET PO SCH ×2 (09:48→20:11)
[2022-01-10] MEDS: SIMvastatin 10 MG (ZOCOR) TAB PO SCH (09:49)
[2022-01-10] MEDS: AMIODARONE 200 MG (CORDARONE) TAB PO SCH (09:49)
--- NOTE | 2022-01-10 09:49 | Occupational Therapy Eval ---
OT Evaluation-General/PLF Medical Diagnosis Admission Date January 09, 2022 at 15:05 Medical Diagnosis: acute decompensated heart failure/defib placement Onset Date: January 08, 2022 Therapy Diagnosis Therapy Diagnosis: Debility, decreased ADL skills Precautions Precautions/Isolations: Fall Prevention, Standard Precautions Weight Bear Status Weight Bearing Restriction: Weight Bearing/Tolerated Pt. is not allowed to lift more than 10lb. or raise left shoulder past 90* for 6 weeks. Keep dressing dry and intact for two days. Once dressing removed, open to air and then keep dry for showering. Referral Physician: Samanta Blank DO Referral Reason: Activity Tolerance, Self Care, Evaluation/Treatment, Strengthening/ROM Medical History Pertinent Medical History: Atrial Fib, DM, HTN Additional Medical History Covid, prostate CA, left TKA, CHF Current History Pt. has been in the hospital for approximately 3 months. Presented originally with SOB, LE swelling, decompensation. HF (s/p echo, heart cath, cardioversion, persistent AF, amio infusion.) Reviewed History: Yes Social History Home: Single Level Current Living Status: Spouse Entry Into Home: Stairs With Railing Steps Into Home: 2 ADL-Prior Level of Function SCALE: Activities may be completed with or without assistive devices. 8-Kufqpjgjtk-rnlauql completes the activity by him/herself with no assistance from a helper. 5-Set-up or Clean-up Assistance-helper sets up or cleans up; patient completes activity. [place] assists only prior to or following the activity. 4-Supervision or Touching Assistance-helper provides verbal cues and/or touching/steadying and/or contact guard assistance as patient completes activity. Assistance may be provided throughout the activity or intermittently. 3-Partial/Moderate Assistance-helper does LESS THAN HALF the effort. [place] lifts, holds or supports trunk or limbs, but provides less than half the effort. 2-Substantial/Maximal Assistance-helper does MORE THAN HALF the effort. [place] lifts or holds trunk or limbs and provides more than half the effort. 0-Xyoaofojq-lghfan does ALL the effort. Patient does none of the effort to complete the activity. Or, the assistance of 2 or more helpers is required for the patient to complete the activity. If activity was not attempted, code reason: 7-Patient Refused. 9-Not Applicable-not attempted and the patient did not perform the activity before the current illness, exacerbation or injury. 10-Not Attempted due to Environmental Limitations-(lack of equipment, weather restraints, etc.). 88-Not Attempted due to Medical Conditions or Safety Concerns. ADL PLOF Comments Pt. was independent prior to original illness. He did have a knee replacement just prior to this illness, and so was using a walker for that. Otherwise, does not use walker. 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 OT Current Status Subjective Pt. does not report pain level but does report "soreness" in left shoulder. Also reports significant fatigue. Appearance Pt. in bed. Alert and oriented. Agrees to treatment. Mental Status/Objective Patient Orientation: Person, Place, Time, Situation Attachments: [place] Catheter Current Upper Extremity ROM Right- WFL Left- limited to 90* precautions. ADL-Treatment Eating (QC): 6 Oral Hygiene (QC): 5 (Set up in bathroom to brush teeth.) Shower/Bathe Self (QC): 3 (Moderate assist overall to wash rear john area and LE. Pt able to wash front john area and UE.) Upper Body Dressing (QC): 4 (SBA sitting EOB to doff/don shirt. Cues for left UE protection.) Lower Body Dressing (QC): 3 (Mod assist overall with shorts.) On/Off Footwear (QC): 2 Toileting Hygiene (QC): 2 (Pt. has catheter. Also is unable to reach rear john area during bathing task.) Other Treatments Pt. seen for partial co-treatment with PT. After initial OT evaluation, OT/PT co-treated due to pt's signficant fatigue level and need fos skilled assist x 2 for basic ADL skills. PT facilitated all standing activities and balance training while OT educated and encouraged pt. to attempt bathing and dressing self. Pt. stood multiple times at quad cane, at first with min assist x 2, but then with assist of one and then CGA. Pt. unsure of self and after ambulating short distances, requires rest breaks. Please see PT note for distance ambulated. After ADL skills training, pt. went into jules to ambulate with cane. Completed several short trials and wanted to go back to room. Went back to lift chair and alternated UE/LE exercises (within precautions) to tolerated range, and with multiple rest breaks. Sats at 99% oxygen and HR at 76. Pt. working with PT when OT left room. Education OT Patient Education: Correct positioning, Exercise program, Home exercise program, Modified ADL techniques, Progress toward Goal/Update tx plan, Purpose of tx/functional activities, Reviewed precautions, Rehab process, Transfer techniques Teaching Recipient: Patient Teaching Methods: Demonstration, Discussion Response to Teaching: Verbalize Understanding, Return Demonstration OT Short Term Goals Short Term Goals Time Frame: January 17, 2022 Eatin Oral hygiene: 6 Toileting hygiene: 4 Shower/bathe self: 3 Upper body dressin Lower body dressin Putting on/taking off footwear: 3 OT Educational Psychologist Goals Educational Psychologist Goals Time Frame: January 24, 2022 Eating (QC): 6 Oral Hygiene (QC): 6 Toileting Hygiene (QC): 6 Shower/Bathe Self (QC): 5 Upper Body Dressing (QC): 6 Lower Body Dressing (QC): 5 On/Off Footwear (QC): 5 Additional Goals: 1-Demonstrate ADL Tasks, 2-Verbalize Understanding, 3- ImproveStrength/Saul 1=Demonstrate adherence to instructed precautions during ADL tasks. 2=Patient will verbalize/demonstrate understanding of assistive devices/modifications for ADL. 3=Patient will improve strength/tolerance for activity to enable patient to perform ADL's. OT Education/Plan Problem List/Assessment Assessment: Decreased Activ Tolerance, Decreased UE Strength, Dependent Transfers, Impaired I ADL's, Impaired Self-Care Skills, Restricted Funct UE ROM Discharge Recommendations Plan/Recommendations: Continue POC Therapy Discharge Recommendati: Home & Family, Post Acute OT Treatment Plan/Plan of Care Treatment,Training & Education: Yes Patient would benefit from OT for education, treatment and training to promote independence in ADL's, mobility, safety and/or upper extremity function for ADL's. Plan of Care: ADL Retraining, Functional Mobility, Group Exercise/Act as Ind, UE Funct Exercise/Act Treatment Duration: January 24, 2022 Frequency: At least 5 of 7 days/Wk (IRF) Estimated Hrs Per Day: 1.5 hours per day Agreement: Yes Rehab Potential: Good Time/GCodes Start Time: 08:10 Stop Time: 09:40 Total Time Billed (hr/min): 90 Billed Treatment Time 1, EVM OT eval only ADL x 45minutes, FA x 15minutes, Ex x 15minutes. Co-treat with PT. Please see above note for designated roles. DANNY RANDHAWA OT January 10, 2022 09:49
[2022-01-10] MEDS: DOCUSATE SODIUM 100 MG (COLACE) CAP PO SCH ×2 (09:51→20:41)
[2022-01-10] MEDS: polyethylene glycoL POWDER 17 GM (MIRALAX) PACK PO SCH ×2 (09:51→20:42)
[2022-01-10] MEDS: SENNA W/DOCUSATE (SENOKOT S) TABLET PO SCH ×2 (09:51→20:42)
[2022-01-10] MEDS: FUROSEMIDE 40 MG (LASIX) TAB PO SCH (09:52)
[2022-01-10] MEDS: ASPIRIN E.C. 81 MG (ECOTRIN) TAB PO SCH (09:52)
[2022-01-10] MEDS: APIXABAN 5 MG (ELIQUIS) TABLET PO SCH ×2 (09:52→20:41)
[2022-01-10] MEDS: FLUTICASONE NASAL SPRAY (FLONASE) 16 GM BTL NS SCH (09:56)
--- NOTE | 2022-01-10 10:59 | Physical Therapy Daily Note ---
PT Daily Note-Current Subjective Upon arrival, pt was laying in bed, OT was present. Pt agrees to PT. PT co treats with OT. Pain Comment: Pt reports soreness. Mental Status Patient Orientation: Person, Place, Time, Situation Transfers SCALE: Activities may be completed with or without assistive devices. 3-Dloymovhsq-dfbmquk completes the activity by him/herself with no assistance from a helper. 5-Set-up or Clean-up Assistance-helper sets up or cleans up; patient completes activity. [place] assists only prior to or following the activity. 4-Supervision or Touching Assistance-helper provides verbal cues and/or touching/steadying and/or contact guard assistance as patient completes activity. Assistance may be provided throughout the activity or intermittently. 3-Partial/Moderate Assistance-helper does LESS THAN HALF the effort. [place] lifts, holds or supports trunk or limbs, but provides less than half the effort. 2-Substantial/Maximal Assistance-helper does MORE THAN HALF the effort. [place] lifts or holds trunk or limbs and provides more than half the effort. 6-Wunfksqvu-avdrjf does ALL the effort. Patient does none of the effort to complete the activity. Or, the assistance of 2 or more helpers is required for the patient to complete the activity. If activity was not attempted, code reason: 7-Patient Refused. 9-Not Applicable-not attempted and the patient did not perform the activity before the current illness, exacerbation or injury. 10-Not Attempted due to Environmental Limitations-(lack of equipment, weather restraints, etc.). 88-Not Attempted due to Medical Conditions or Safety Concerns. Lying to Sitting/Side of Bed(Q: 4 Sit to Stand (QC): 4 Gait Training Does the Patient Walk?: Yes Distance: 36' Walk 10 feet (QC): 3 Gait Persons Needed: 2 Gait Assistive Device: Cane Large Base Quad Pt had step through GT pattern. Pt was slightly hunched over. Exercises Supine Ex: Ankle pumps, Heel Slides, Straight leg raise, Hip abd/add Supine Reps: 15 Seated Therapy Exercises: Ankle pumps (2x 20 reps), Sit to stand (3), Long arc quads (2x 15 reps), Hip flexion (2x 15 reps), Hip abd/add (15) Treatments Pt performed and completed all Exs as listed above. Pt ambulated with assistance from OT and PT. As PT was concluded, pt was sated in recliner with call light and tray in reach and all needs met. Assessment Current Status: Good Progress Pt would benefit from continued PT, to improve on strength, GT, and activity tolerance. PT Short Term Goals Short Term Goals Time Frame: January 16, 2022 Roll Left & Right: 4 Sit to lyin (CGA) Lying to sitting on side of be: 4 (CGA) Sit to stand: 3 Chair/lne-jl-xqnkt transfer: 3 Toilet transfer: 3 Car transfer: 3 Walk 10 feet: 4 (CGA) Walk 50 feet with two turns: 3 Walk 150 feet: 3 Walking 10ft on uneven surface: 3 1 step (curb): 4 PT Control Clerk Head Goals Assisted Goals PT Assisted Goals Time Frame: January 30, 2022 Roll Left & Right (QC): 6 Sit to Lying (QC): 4 (SBA) Lying-Sitting on Side/Bed(QC): 4 (SBA) Sit to Stand (QC): 4 Chair/Yxk-dh-Kijlf Xfer(QC): 4 Toilet Transfer (QC): 4 Car Transfer (QC): 4 Does the Patient Walk: Yes Walk 10 feet (QC): 4 (SBA) Walk 50ft with 2 Turns (QC): 4 Walk 150 ft (QC): 4 Walking 10ft on Uneven Surface: 4 1 Step (curb) (QC): 4 4 Steps (QC): 9 12 Steps (QC): 9 Picking up an Object (QC): 4 Does the Pt use WC or Scooter?: No Wheel 50 feet with 2 turns (QC: 9 Type: N/A Wheel 150 feet: 9 Type: N/A PT Plan Problem List Problem List: Activity Tolerance, Functional Strength, Gait Treatment/Plan Treatment Plan: Continue Plan of Care Treatment Plan: Bed Mobility, Education, Functional Activity Saul, Functional Strength, Group Therapy, Gait, Safety, Therapeutic Exercise, Transfers Treatment Duration: January 30, 2022 Frequency: At least 5 of 7 days/Wk (IRF) Estimated Hrs Per Day: 1.5 hours per day Patient and/or Family Agrees t: Yes Safety Risks/Education Patient Education: Transfer Techniques, Correct Positioning, Safety Issues Teaching Recipient: Patient Teaching Methods: Discussion Response to Teaching: Verbalize Understanding Time/GCodes Time In: 825 Time Out: 945 Total Billed Treatment Time: 80 Total Billed Treatment 1, FA x3(40), EX x2(40) UMER GAN LEAD INGOT MOLDER January 10, 2022 10:59
[2022-01-10] MEDS: KCL 10 MEQ TAB (MICRO K) PO SCH (11:29)
--- NOTE | 2022-01-10 12:38 | Cardiology Progress Note ---
Progress Note-Cardiology Events since last exam Date Seen by Provider: January 10, 2022 Time Seen by Provider: 12:34 Events since last exam I am following him due to heart failure with reduced ejection fraction. He was sitting up in a chair. His was at the bedside. He denies chest discomfort, dyspnea, palpitations, or syncope. His lower extremity edema continues to improve and is now nearly resolved. Certain portions of this document may have been dictated utilizing voice recognition technology. Inherent to this technology, typographical and grammatical errors may exist. As much as I am diligent to identify and correct these mistakes, some errors may remain in the document. Vitals Last set of Vitals Signs Vital Signs 01/10/22 01/10/22 07:12 09:00 Temp 36.1 Pulse 81 Resp 18 B/P (MAP) 103/63 (76) Pulse Ox 98 O2 Delivery Room Air Labs Labs Laboratory Tests 01/10/22 06:05 Exam Vital Signs Vital Signs Date Time Temp Pulse Resp B/P (MAP) Pulse Ox O2 Delivery O2 Flow Rate FiO2 01/10/22 09:00 Room Air 01/10/22 07:12 36.1 81 18 103/63 (76) 98 Physical Exam General: Alert. No acute distress. He is overweight. Eye: No xanthelasma. HENT: Normocephalic. Neck: Jugular venous pressure does not appear elevated. Respiratory: Lungs are clear to auscultation. Respirations are non-labored. Breath sounds are equal. Symmetrical chest wall expansion. Cardiovascular: Normal rate. Regular rhythm. No murmur. No gallop. Trace bilateral pretibial edema. Gastrointestinal: Soft. Normal bowel sounds. Skin: Warm. Dry. Neurologic: Alert and oriented to person, place, time. Cranial nerves 3-11 grossly intact. Psychiatric: Cooperative. Appropriate mood & affect. Labs Laboratory Tests Test 01/09/22 16:59 01/09/22 20:27 01/10/22 06:00 01/10/22 06:05 Range/Units Glucometer 154 H 154 H 125 H 70-110 MG/DL White Blood Count 6.6 4.3-11.0 10^3/uL Red Blood Count 4.05 L 4.30-5.52 10^6/uL Hemoglobin 11.4 L 13.3-17.7 g/dL Hematocrit 35 L 40-54 % Mean Corpuscular Volume 87 80-99 fL Mean Corpuscular Hemoglobin 28 25-34 pg Mean Corpuscular Hemoglobin Concent 33 32-36 g/dL Red Cell Distribution Width 18.0 H 10.0-14.5 % Platelet Count 265 130-400 10^3/uL Mean Platelet Volume 10.5 9.0-12.2 fL Immature Granulocyte % (Auto) 1 % Neutrophils (%) (Auto) 60 42-75 % Lymphocytes (%) (Auto) 26 12-44 % Monocytes (%) (Auto) 9 0-12 % Eosinophils (%) (Auto) 3 0-10 % Basophils (%) (Auto) 2 0-10 % Neutrophils # (Auto) 4.0 1.8-7.8 10^3/uL Lymphocytes # (Auto) 1.7 1.0-4.0 10^3/uL Monocytes # (Auto) 0.6 0.0-1.0 10^3/uL Eosinophils # (Auto) 0.2 0.0-0.3 10^3/uL Basophils # (Auto) 0.1 0.0-0.1 10^3/uL Immature Granulocyte # (Auto) 0.0 0.0-0.1 10^3/uL Sodium Level 134 L 135-145 MMOL/L Potassium Level 3.4 L 3.6-5.0 MMOL/L Chloride Level 100 98-107 MMOL/L Carbon Dioxide Level 21 21-32 MMOL/L Anion Gap 13 5-14 MMOL/L Blood Urea Nitrogen 11 7-18 MG/DL Creatinine 1.02 0.60-1.30 MG/DL Estimat Glomerular Filtration Rate 78 BUN/Creatinine Ratio 11 Glucose Level 131 H 70-105 MG/DL Calcium Level 8.7 8.5-10.1 MG/DL Corrected Calcium 9.3 8.5-10.1 MG/DL Total Bilirubin 1.1 H 0.1-1.0 MG/DL Aspartate Amino Transf (AST/SGOT) 14 5-34 U/L Alanine Aminotransferase (ALT/SGPT) 18 0-55 U/L Alkaline Phosphatase 96 40-136 U/L Total Protein 6.1 L 6.4-8.2 GM/DL Albumin 3.2 3.2-4.5 GM/DL Triglycerides Level 100 <150 MG/DL Cholesterol Level 118 < 200 MG/DL LDL Cholesterol Direct 62 1-129 MG/DL VLDL Cholesterol 20 5-40 MG/DL HDL Cholesterol 35 L 40-60 MG/DL Test 01/10/22 11:08 Range/Units Glucometer 129 H 70-110 MG/DL Diagnosis/Problems Diagnosis/Problems (1) Chronic HFrEF (heart failure with reduced ejection fraction) Assessment & Plan: This is a new diagnosis in this patient. This is due to nonischemic cardiomyopathy. All of his guideline directed medications have been resumed except for eplerenone which we do not have on formulary. The inpatient pharmacy will order some from an outside pharmacy on Wednesday. (2) Nonischemic cardiomyopathy Assessment & Plan: He has newly diagnosed nonischemic cardiomyopathy of unknown known etiology. He did have COVID earlier in the year but it was 2 months before he developed his current symptoms so unclear whether or not this could have anything to do with the COVID infection. He underwent a cardiac catheterization at an outside facility that did not show any significant coronary artery disease. As above, his guideline directed medical therapy has all been resumed except for eplerenone. He has a prophylactic defibrillator in place which was just implanted on 01/08. (3) Persistent atrial fibrillation Assessment & Plan: This was also a new diagnosis in the patient. He is on apixaban for stroke prophylaxis and amiodarone for rhythm management. At some point, we will need to consider whether or not to discontinue the amiodarone. (4) Pulmonary hypertension Assessment & Plan: His outside echocardiogram report stated there were elevated right-sided heart pressures. This was likely due to the acute heart failure. This will need to be followed longitudinally. (5) Primary hypertension Assessment & Plan: His blood pressures have been running somewhat on the low side. I will decrease the doses of Entresto. (6) Mixed hyperlipidemia Assessment & Plan: Continue statin medication. (7) Type 2 diabetes mellitus with complication Assessment & Plan: This will be managed by the hospitalist. His Jardiance should be resumed. There is good data that this medication is not only effective for diabetes but also helps reduce heart failure admissions. LAILA RAMOS JR, MD January 10, 2022 12:38
--- NOTE | 2022-01-10 13:55 | Physical Therapy Daily Note ---
PT Daily Note-Current Subjective Upon arrival, pt was seated in recliner. Pt agrees to PT. Pt states that his legs are sore. Mental Status Patient Orientation: Person, Place, Time, Situation Transfers SCALE: Activities may be completed with or without assistive devices. 4-Zlghyxghta-edckzkj completes the activity by him/herself with no assistance from a helper. 5-Set-up or Clean-up Assistance-helper sets up or cleans up; patient completes activity. [place] assists only prior to or following the activity. 4-Supervision or Touching Assistance-helper provides verbal cues and/or touching/steadying and/or contact guard assistance as patient completes activity . Assistance may be provided throughout the activity or intermittently. 3-Partial/Moderate Assistance-helper does LESS THAN HALF the effort. [place] lifts, holds or supports trunk or limbs, but provides less than half the effort. 2-Substantial/Maximal Assistance-helper does MORE THAN HALF the effort. [place] lifts or holds trunk or limbs and provides more than half the effort. 8-Lmrvxflro-qgmlbl does ALL the effort. Patient does none of the effort to complete the activity. Or, the assistance of 2 or more helpers is required for the patient to complete the activity. If activity was not attempted, code reason: 7-Patient Refused. 9-Not Applicable-not attempted and the patient did not perform the activity before the current illness, exacerbation or injury. 10-Not Attempted due to Environmental Limitations-(lack of equipment, weather restraints, etc.). 88-Not Attempted due to Medical Conditions or Safety Concerns. Sit to Stand (QC): 4 Gait Training Does the Patient Walk?: No and Walking Goal IS indicated Exercises Seated Therapy Exercises: Ankle pumps, Sit to stand (2), Long arc quads, Hip flexion Seated Reps: 20 Treatments Pt performed and completed all Exs as listed above, pt required RB. As PT concluded pt was seated in recliner, with call light and tray in reach and all needs met. Assessment Current Status: Good Progress Pt would benefit from continued PT to improve on strength, GT, and activity tolerance. PT Short Term Goals Short Term Goals Time Frame: January 16, 2022 Roll Left & Right: 4 Sit to lyin (CGA) Lying to sitting on side of be: 4 (CGA) Sit to stand: 3 Chair/pov-qj-ibgiw transfer: 3 Toilet transfer: 3 Car transfer: 3 Walk 10 feet: 4 (CGA) Walk 50 feet with two turns: 3 Walk 150 feet: 3 Walking 10ft on uneven surface: 3 1 step (curb): 4 PT Technology Services Manager Goals [facility] Goals PT Technology Services Manager Goals Time Frame: January 30, 2022 Roll Left & Right (QC): 6 Sit to Lying (QC): 4 (SBA) Lying-Sitting on Side/Bed(QC): 4 (SBA) Sit to Stand (QC): 4 Chair/Enq-ku-Gpyro Xfer(QC): 4 Toilet Transfer (QC): 4 Car Transfer (QC): 4 Does the Patient Walk: Yes Walk 10 feet (QC): 4 (SBA) Walk 50ft with 2 Turns (QC): 4 Walk 150 ft (QC): 4 Walking 10ft on Uneven Surface: 4 1 Step (curb) (QC): 4 4 Steps (QC): 9 12 Steps (QC): 9 Picking up an Object (QC): 4 Does the Pt use WC or Scooter?: No Wheel 50 feet with 2 turns (QC: 9 Type: N/A Wheel 150 feet: 9 Type: N/A PT Plan Problem List Problem List: Activity Tolerance, Functional Strength, Gait Treatment/Plan Treatment Plan: Continue Plan of Care Treatment Plan: Bed Mobility, Education, Functional Activity Saul, Functional Strength, Group Therapy, Gait, Safety, Therapeutic Exercise, Transfers Treatment Duration: January 30, 2022 Frequency: At least 5 of 7 days/Wk (IRF) Estimated Hrs Per Day: 1.5 hours per day Patient and/or Family Agrees t: Yes Time/GCodes Time In: 1330 Time Out: 1341 Total Billed Treatment Time: 11 Total Billed Treatment 1, EX (11) UMER GAN PTA January 10, 2022 13:55
[2022-01-10 15:19] LABS: CLARITY,URINE CLOUDY; COLOR,URINE YELLOW; GLUCOSE, URINE (UA) 3+ (NEGATIVE); KETONES,URINE TRACE (NEGATIVE); LEUKOCYTE ESTERASE ,URINE 2+ (NEGATIVE); NITRITE,URINE NEGATIVE (NEGATIVE); PH,URINE 5.5 (5-9); PROTEIN,URINE 2+ (NEGATIVE)
[2022-01-10 15:31] LABS: BACTERIA,URINE FEW /HPF; BILIRUBIN,URINE 1+ (NEGATIVE); WBC,URINE 25-50 /HPF
[2022-01-10 15:32] LABS: YEAST,URINE LARGE /HPF
[2022-01-10] MEDS ORDERED: LORATADINE (CLARITIN) 10 MG TAB PO ONE (18:15)
[2022-01-10 19:21] VITALS: BP 94/63
[2022-01-10] MEDS: ACETAMINOPHEN 325 MG TABLET PO PRN (21:32)
[2022-01-10] MEDS: ZOLPIDEM 5 MG (AMBIEN) TAB PO PRN (21:32)
[2022-01-10] MEDS: CYCLOBENZAPRINE 10 MG (FLEXERIL) TAB PO PRN (21:32)
[2022-01-11] MEDS: LEVOTHYROXINE 25 MCG (LEVOTHROID) TAB PO SCH (06:51)
[2022-01-11] MEDS: KCL 10 MEQ TAB (MICRO K) PO SCH (06:51)
[2022-01-11 07:01] VITALS: BP 102/66
--- NOTE | 2022-01-11 07:01 | Individualized Plan of Care ---
Individualized Plan of Care Rehab Nursing IPOC Order Admission Date January 09, 2022 at 15:05 Current Orders Orders Admission Order(Inpt,Obs,Sdc) (01/09/22 11:49) Vital Signs: Per Unit Policy ( ,16,00 (01/09/22 11:49) Inder Connell (01/09/22 11:49) Sequential Compression Device (01/09/22 11:49) Placement Secretary-Inpt Rehab Con (01/09/22 11:49) Rehab Nursing Orders-Ipoc (01/09/22 11:49) Physical Therapy Rehab Orders (01/09/22 11:49) Occupational Therapy Rehab Ord (01/09/22 11:49) Speech Therapy Rehab Orders (01/09/22 11:49) Cbc With Automated Diff (01/10/22 06:00) Comprehensive Metabolic Panel (01/10/22 06:00) Precautions (Aru) (01/09/22 11:49) Weekly Weight WEEK (01/09/22 11:49) Rehab-Intensity Of Therapy (01/09/22 11:49) Initiate Admission Nursing Pro .admission (01/09/22 11:49) Alprazolam Tablet (Xanax Tablet) (01/09/22 12:00) Calcium Carbonate Chew Tablet (Antacid C (01/09/22 12:00) Diphenhydramine Tablet (Benadryl Tablet) (01/09/22 12:00) Docusate Sodium Capsule (Colace Capsule) (01/09/22 21:00) Docusate Sodium Capsule (Colace Capsule) (01/09/22 12:00) Bisacodyl Suppository (Dulcolax Supposit (01/09/22 12:00) Lactulose Oral Solution (Enulose Oral So (01/09/22 12:00) Na Phos/Na Biphos Enema (Fleet Enema [place]ell (01/09/22 12:00) Guaifenesin/Codeine Syrup (Robitussin Ac (01/09/22 12:00) Loperamide Tablet (Imodium Tablet) (01/09/22 12:00) Melatonin Tablet (Melatonin Tablet) (01/09/22 12:00) Polyethylene Glycol Powder Pkt (Miralax (5/6/22 21:00) Ondansetron Oral Dissolve Tab (Zofran (01/09/22 12:00) Senna S Tablet (Senokot S Tablet) (01/09/22 21:00) Acetaminophen Tablet/Caplet (Tylenol T (01/09/22 12:00) Code/Resuscitation (01/09/22 11:49) Transfer - Bed/Room/Location (01/09/22 15:06) Apixaban Tablet (Eliquis Tablet) (01/09/22 21:00) Aspirin Enteric Coated Tablet (Ecotrin T (01/10/22 09:00) Rx-Cyclobenzaprine Tablet (Rx-Flexeril T (01/09/22 15:15) Empagliflozin Tablet (Jardiance Tablet) (01/10/22 09:00) Furosemide Tablet (Lasix Tablet) (01/10/22 09:00) Metoprolol Succinate (Xl) Tab (Toprol Xl (01/10/22 09:00) Simvastatin Tablet (Zocor Tablet) (01/10/22 09:00) Tamsulosin Capsule (Flomax Capsule) (01/10/22 09:00) Tramadol Tablet (Ultram Tablet) (01/09/22 15:15) (Nf) Amiodarone Hcl (01/10/22 09:00) (Nf) Eplerenone (01/10/22 09:00) (Nf) Fluticasone Propionate (01/10/22 09:00) (Nf) Levothyroxine Sodium (Levothyroxine (01/10/22 09:00) (Nf) Sacubitril/Valsartan (Entresto 49 M (01/09/22 21:00) (Nf) Zolpidem Tartrate (Ambien) (01/09/22 15:15) Consult Cardiology (01/09/22 15:08) Ekg Tracing (01/09/22 15:08) Amiodarone Tablet (Cordarone Tablet) (01/10/22 09:00) Levothyroxine Tablet (Synthroid Tablet) (01/10/22 06:30) Cyclobenzaprine Tablet (Flexeril Tablet) (01/09/22 17:45) General/Regular (01/09/22 Dinner) Zolpidem Tablet (Ambien Tablet) (01/09/22 17:45) Fluticasone Nasal [place] (Flonase Nasal S (01/10/22 09:00) Sacubitril/Valsartan 24/26 Mg (Entresto (01/09/22 21:00) Non-Formulary Medication (Non-Formulary (01/10/22 09:00) Ekg Tracing (01/09/22 17:52) Lipid Panel (01/10/22 05:00) Nursing Communication (Order) (01/09/22 17:58) Intake & Output 06,14,22 (01/09/22 19:01) Patient Visit (01/09/22 ) Pt Eval Moderate Complexity (01/09/22 ) Potassium Chloride (Tablet) (Klor Con Ta (01/10/22 11:00) Sacubitril/Valsartan 24/26 Mg (Entresto (01/10/22 21:00) Chest Pa/Lat (2 View) (01/12/22 06:00) Patient Visit (01/10/22 ) Functional Activities, Ea 15 (01/10/22 ) Exercise Therap, Ea 15 Min (01/10/22 ) Urinalysis (01/10/22 15:10) Urine Culture (01/10/22 15:10) Loratadine Tablet (Claritin Tablet) (01/10/22 18:15) Loratadine Tablet (Claritin Tablet) (01/11/22 09:00) Fluconazole Tablet (Diflucan Tablet) (01/11/22 09:00) Rehab Nursing Orders: Ongoing Assess. of Cognitive Status, Ongoing Assess. of Function Status, Bladder Management, Bladder Scan, Bladder Training, Bowel Management, Bowel Training, Disease Management & Educaiton, DVT Prophylaxis, Fall Prevention, Fluid/Electrolyte/Nutrition Mgmt, Infection Prevention, Medication Management & Education, Management of Risks & Complications, Nutrition Management, Pain Management, Patient/Family Support, Safety Management, Wound Management Intensity of Therapy to be met Patient to be seen: Min.3h per day/5 of 7d PT IPOC Problem List: Activity Tolerance, Functional Strength, Gait Treatment Plan: Continue Plan of Care Bed Mobility, Education, Functional Activity Saul, Functional Strength, Group Therapy, Gait, Safety, Therapeutic Exercise, Transfers Treatment Duration: January 30, 2022 Frequency: At least 5 of 7 days/Wk (IRF) Estimated Hrs Per Day: 1.5 hours per day OT IPOC Problems: Decreased UE Strength, Impaired Cognition, Impaired Coordination, Impaired Funct Balance OT Treatment, Training and Edu: Yes Plan of Care: ADL Retraining, Functional Mobility Treatment Duration: January 10, 2022 Frequency: Modified Program (IRF) Estimated Hrs Per Day: Other ST IPOC Speech Therapy Treatment Plan: Discontinue ST Treatment Duration: January 10, 2022 Frequency: Modified Program (IRF) Estimated Hrs Per Day: Other Placement Secretary/Case Mgmt Placement Secretary/Case Managemen: Discharge Planning Dietitian/Special Procedure Tech Dietitian/Special Procedure Tech to monitor nutritional status and make changes and/or recommendations as needed and work with speech pathology on dietary upgrades as the occur. Physician IPOC Medical Issues being managed closely and that require the 24 hour availability of a physician: Medical Issues: Bowel/Bladder Function, DVT Prophylaxis, Falls Precautions, Fluid/Electrolyte/Nutrition Balance, Infection Protection, Pain Management Brief Synthesis of Preadmission Screen, Post-Admission Evaluation, and Therapy Evaluations: Medical Prognosis: Fair Anticipated Length of Stay: 7 days GUERRERO COLE DO January 11, 2022 07:01
--- NOTE | 2022-01-11 07:01 | PM&R Progress Note ---
Subjective HPI/CC On Admission Date Seen by Provider: January 11, 2022 Time Seen by Provider: 11:00 Subjective/Events-last exam 01/11/2022: Patient doing well We will consult urology tomorrow Yeast will be treated with Diflucan Awaiting final urine culture Checked meds and labs 01/10/2022: Patient doing well at bedside reviewing meds with nurse Changing out catheter tubing UA sent down will hold off on treatment until culture known Yeast noted so we will start Diflucan Review of Systems General: Fatigue, Malaise Objective Exam Vital Signs Vital Signs Date Time Temp Pulse Resp B/P (MAP) Pulse Ox O2 Delivery O2 Flow Rate FiO2 01/11/22 20:35 Room Air 01/11/22 20:15 92/55 (67) 01/11/22 20:08 36.6 85 20 99 Capillary Refill : General Appearance: No Apparent Distress, WD/WN, Chronically ill, Obese HEENT: PERRL/EOMI, Normal ENT Inspection, Pharynx Normal Neck: Full Range of Motion, Normal Inspection, Non Tender, Supple, Carotid Bruit Respiratory: Chest Non Tender, Lungs Clear, No Accessory Muscle Use, No Respiratory Distress, Decreased Breath Sounds Cardiovascular: No Edema, No Gallop, No JVD, No Murmur, Normal Peripheral Pulses, Irregularly Irregular Gastrointestinal: Normal Bowel Sounds, No Organomegaly, No Pulsatile Mass, Non Tender, Soft Back: Normal Inspection, No CVA Tenderness, No Vertebral Tenderness Extremity: Normal Capillary Refill, Normal Inspection, Normal Range of Motion, Non Tender, No Calf Tenderness, No Pedal Edema Neurologic/Psychiatric: Alert, Oriented x3, No Motor/Sensory Deficits, Normal Mood/Affect Skin: Normal Color, Warm/Dry Lymphatic: No Adenopathy Results/Procedures Lab Patient resulted labs reviewed. FIM Transfers Therapy Code Descriptions/Definitions Functional [place] Measure: 0=Not Assessed/NA 4=Minimal Assistance 1=Total Assistance 5=Supervision or Setup 2=Maximal Assistance 6=Modified [place] 3=Moderate Assistance 7=Complete IndependenceSCALE: Activities may be completed with or without assistive devices. 4-Hfrtxyztbu-sfrxdnr completes the activity by him/herself with no assistance from a helper. 5-Set-up or Clean-up Assistance-helper sets up or cleans up; patient completes activity. [place] assists only prior to or following the activity. 4-Supervision or Touching Assistance-helper provides verbal cues and/or touching/steadying and/or contact guard assistance as patient completes activity. Assistance may be provided throughout the activity or intermittently. 3-Partial/Moderate Assistance-helper does LESS THAN HALF the effort. [place] lifts, holds or supports trunk or limbs, but provides less than half the effort. 2-Substantial/Maximal Assistance-helper does MORE THAN HALF the effort. [place] lifts or holds trunk or limbs and provides more than half the effort. 2-Vdztkcuuk-htldhg does ALL the effort. Patient does none of the effort to complete the activity. Or, the assistance of 2 or more helpers is required for the patient to complete the activity. If activity was not attempted, code reason: 7-Patient Refused. 9-Not Applicable-not attempted and the patient did not perform the activity before the current illness, exacerbation or injury. 10-Not Attempted due to Environmental Limitations-(lack of equipment, weather restraints, etc.). 88-Not Attempted due to Medical Conditions or Safety Concerns. Roll Left to Right (QC): 3 Sit to Lying (QC): 4 Sit to Stand (QC): 4 Chair/Wxf-fk-Eixny Xfer(QC): 2 Car Transfer (QC): 2 Gait Training Does the Patient Walk?: No and Walking Goal IS indicated Distance: 36' Walk 10 feet (QC): 3 Walk 50 ft with 2 Turns(QC): 88 Walk 150 ft (QC): 88 Walking 10ft/uneven surface-QC: 88 Gait Persons Needed: 2 Gait Assistive Device: Cane Large Base Quad Wheelchair Training Does the Pt Use a Wheelchair?: Yes Wheel 50 ft with 2 turns (QC): 1 Wheel 150 ft (QC): 1 Stair Training 1 Step (curb) (QC): 88 4 Steps (QC): 88 12 Steps (QC): 88 Balance Picking up an Object (QC): 88 ADL-Treatment Eating (QC): 6 Oral Hygiene (QC): 5 (Set up in bathroom to brush teeth.) Shower/Bathe Self (QC): 3 (Moderate assist overall to wash rear john area and LE. Pt able to wash front john area and UE.) Upper Body Dressing (QC): 4 (SBA sitting EOB to doff/don shirt. Cues for left UE protection.) Lower Body Dressing (QC): 3 (Mod assist overall with shorts.) On/Off Footwear (QC): 2 Toileting Hygiene (QC): 2 (Pt. has catheter. Also is unable to reach rear john area during bathing task.) Assessment/Plan Assessment and Plan Assess & Plan/Chief Complaint Assessment: Cardiac debility Nonischemic cardiomyopathy Persistent atrial fibrillation Previous COVID infection Hypoxia BPH Hypothyroidism Diabetes Prostate cancer history Elevated liver enzymes Insomnia Obesity History of acute kidney injury Hyponatremia Yeast UTI Plan: Rehab protocol Dr. Kramer consult Supportive care 01/10/22: Monitor closely UTI treatment 01/11/2022: Diflucan Await final urine culture (1) Chronic HFrEF (heart failure with reduced ejection fraction) Assessment & Plan: This is a new diagnosis in this patient. This is due to nonischemic cardiomyopathy. All of his guideline directed medications have been resumed except for eplerenone which we do not have on formulary. The inpatient pharmacy will order some from an outside pharmacy on Wednesday. (2) Nonischemic cardiomyopathy Assessment & Plan: He has newly diagnosed nonischemic cardiomyopathy of unknown known etiology. He did have COVID earlier in the year but it was 2 months before he developed his current symptoms so unclear whether or not this could have anything to do with the COVID infection. He underwent a cardiac catheterization at an outside facility that did not show any significant co ronary artery disease. As above, his guideline directed medical therapy has all been resumed except for eplerenone. He has a prophylactic defibrillator in place which was just implanted on 01/08. (3) Persistent atrial fibrillation Assessment & Plan: This was also a new diagnosis in the patient. He is on apixaban for stroke prophylaxis and amiodarone for rhythm management. At some point, we will need to consider whether or not to discontinue the amiodarone. (4) Pulmonary hypertension Assessment & Plan: His outside echocardiogram report stated there were elevated right-sided heart pressures. This was likely due to the acute heart failure. This will need to be followed longitudinally. (5) Primary hypertension Assessment & Plan: His blood pressures have been running somewhat on the low side. I will decrease the doses of Entresto. (6) Mixed hyperlipidemia Assessment & Plan: Continue statin medication. (7) Type 2 diabetes mellitus with complication Assessment & Plan: This will be managed by the hospitalist. His Jardiance should be resumed. There is good data that this medication is not only effective for diabetes but also helps reduce heart failure admissions. GUERRERO COLE DO January 11, 2022 07:01
[2022-01-11] MEDS: fluCOnazole (DIFLUCAN) 100 MG TAB PO SCH (08:38)
[2022-01-11] MEDS: ASPIRIN E.C. 81 MG (ECOTRIN) TAB PO SCH (08:38)
[2022-01-11] MEDS: EMPAGLIFLOZIN 10 MG TABLET (JARDIANCE) PO SCH (08:38)
[2022-01-11] MEDS: TAMSULOSIN 0.4 MG (FLOMAX) CAP PO SCH (08:38)
[2022-01-11] MEDS: SIMvastatin 10 MG (ZOCOR) TAB PO SCH (08:38)
[2022-01-11] MEDS: APIXABAN 5 MG (ELIQUIS) TABLET PO SCH ×2 (08:39→20:47)
[2022-01-11] MEDS: AMIODARONE 200 MG (CORDARONE) TAB PO SCH (08:39)
[2022-01-11] MEDS: FUROSEMIDE 40 MG (LASIX) TAB PO SCH (08:40)
[2022-01-11] MEDS: LORATADINE (CLARITIN) 10 MG TAB PO SCH (08:41)
[2022-01-11] MEDS: SACUBITRIL/VALSARTAN 24/26 MG (ENTRESTO) TABLET PO SCH ×2 (09:14→20:34)
[2022-01-11] MEDS: FLUTICASONE NASAL SPRAY (FLONASE) 16 GM BTL NS SCH (09:15)
[2022-01-11] MEDS: SENNA W/DOCUSATE (SENOKOT S) TABLET PO SCH ×2 (09:18→20:47)
[2022-01-11] MEDS: polyethylene glycoL POWDER 17 GM (MIRALAX) PACK PO SCH ×2 (09:18→20:48)
[2022-01-11] MEDS: DOCUSATE SODIUM 100 MG (COLACE) CAP PO SCH ×2 (09:18→20:49)
--- NOTE | 2022-01-11 09:36 | Diagnostic Imaging Report ---
INDICATION: Heart failure. PA and lateral views were obtained FINDINGS: There is cardiomegaly. There is some right basilar atelectasis and/or pneumonitis and right pleural effusion. No pneumothorax. Mediastinum unremarkable. Pacemaker overlies left hemithorax. IMPRESSION: Right basilar atelectasis and/or pneumonitis and right pleural effusion. Cardiomegaly. Dictated by: Dictated on workstation # [id number]
[2022-01-11 20:08] VITALS: BP 87/55
[2022-01-11 20:15] VITALS: BP 92/55
[2022-01-11] MEDS: ZOLPIDEM 5 MG (AMBIEN) TAB PO PRN (21:32)
[2022-01-11] MEDS: ACETAMINOPHEN 325 MG TABLET PO PRN (21:33)
[2022-01-11] MEDS: CYCLOBENZAPRINE 10 MG (FLEXERIL) TAB PO PRN (21:33)
--- NOTE | 2022-01-12 05:50 | PM&R Progress Note ---
Subjective HPI/CC On Admission Date Seen by Provider: January 12, 2022 Time Seen by Provider: 09:30 Subjective/Events-last exam 01/12/2022: Dr. Hendricks will see him tomorrow Diflucan maintain for yeast UTI No pain is reported Improving ambulation No falls Blood pressure runs low 01/11/2022: Patient doing well We will consult urology tomorrow Yeast will be treated with Diflucan Awaiting final urine culture Checked meds and labs 01/10/2022: Patient doing well at bedside reviewing meds with nurse Changing out catheter tubing UA sent down will hold off on treatment until culture known Yeast noted so we will start Diflucan Review of Systems General: Fatigue, Malaise Pulmonary: Dyspnea Objective Exam Vital Signs Vital Signs Date Time Temp Pulse Resp B/P (MAP) Pulse Ox O2 Delivery O2 Flow Rate FiO2 01/12/22 20:10 Room Air 01/12/22 19:31 36.6 83 20 91/64 (73) 95 Capillary Refill : General Appearance: No Apparent Distress, WD/WN, Chronically ill, Obese HEENT: PERRL/EOMI, Normal ENT Inspection, Pharynx Normal Neck: Full Range of Motion, Normal Inspection, Non Tender, Supple, Carotid Bruit Respiratory: Chest Non Tender, Lungs Clear, No Accessory Muscle Use, No Respiratory Distress, Decreased Breath Sounds Cardiovascular: No Edema, No Gallop, No JVD, No Murmur, Normal Peripheral Pulses, Irregularly Irregular Gastrointestinal: Normal Bowel Sounds, No Organomegaly, No Pulsatile Mass, Non Tender, Soft Back: Normal Inspection, No CVA Tenderness, No Vertebral Tenderness Extremity: Normal Capillary Refill, Normal Inspection, Normal Range of Motion, Non Tender, No Calf Tenderness, No Pedal Edema Neurologic/Psychiatric: Alert, Oriented x3, No Motor/Sensory Deficits, Normal Mood/Affect Skin: Normal Color, Warm/Dry Lymphatic: No Adenopathy Results/Procedures Lab Patient resulted labs reviewed. FIM Transfers Therapy Code Descriptions/Definitions Functional [place] Measure: 0=Not Assessed/NA 4=Minimal Assistance 1=Total Assistance 5=Supervision or Setup 2=Maximal Assistance 6=Modified [place] 3=Moderate Assistance 7=Complete IndependenceSCALE: Activities may be completed with or without assistive devices. 6-Mlnzjuvcwj-tqigrwb completes the activity by him/herself with no assistance from a helper. 5-Set-up or Clean-up Assistance-helper sets up or cleans up; patient completes activity. [place] assists only prior to or following the activity. 4-Supervision or Touching Assistance-helper provides verbal cues and/or touching/steadying and/or contact guard assistance as patient completes activity. Assistance may be provided throughout the activity or intermittently. 3-Partial/Moderate Assistance-helper does LESS THAN HALF the effort. [place] lifts, holds or supports trunk or limbs, but provides less than half the effort. 2-Substantial/Maximal Assistance-helper does MORE THAN HALF the effort. [place] l ifts or holds trunk or limbs and provides more than half the effort. 0-Eewfjdlak-bqbfla does ALL the effort. Patient does none of the effort to complete the activity. Or, the assistance of 2 or more helpers is required for the patient to complete the activity. If activity was not attempted, code reason: 7-Patient Refused. 9-Not Applicable-not attempted and the patient did not perform the activity before the current illness, exacerbation or injury. 10-Not Attempted due to Environmental Limitations-(lack of equipment, weather restraints, etc.). 88-Not Attempted due to Medical Conditions or Safety Concerns. Roll Left to Right (QC): 3 Sit to Lying (QC): 4 Sit to Stand (QC): 4 Chair/Vdb-ve-Mlmkr Xfer(QC): 2 Car Transfer (QC): 2 Gait Training Does the Patient Walk?: No and Walking Goal IS indicated Distance: 36' Walk 10 feet (QC): 3 Walk 50 ft with 2 Turns(QC): 88 Walk 150 ft (QC): 88 Walking 10ft/uneven surface-QC: 88 Gait Persons Needed: 2 Gait Assistive Device: Cane Large Base Quad Wheelchair Training Does the Pt Use a Wheelchair?: Yes Wheel 50 ft with 2 turns (QC): 1 Wheel 150 ft (QC): 1 Stair Training 1 Step (curb) (QC): 88 4 Steps (QC): 88 12 Steps (QC): 88 Balance Picking up an Object (QC): 88 ADL-Treatment Eating (QC): 6 Oral Hygiene (QC): 5 (Set up in bathroom to brush teeth.) Shower/Bathe Self (QC): 3 (Moderate assist overall to wash rear john area and LE. Pt able to wash front john area and UE.) Upper Body Dressing (QC): 4 (SBA sitting EOB to doff/don shirt. Cues for left UE protection.) Lower Body Dressing (QC): 3 (Mod assist overall with shorts.) On/Off Footwear (QC): 2 Toileting Hygiene (QC): 2 (Pt. has catheter. Also is unable to reach rear john area during bathing task.) Assessment/Plan Assessment and Plan Assess & Plan/Chief Complaint Assessment: Cardiac debility Nonischemic cardiomyopathy Persistent atrial fibrillation Previous COVID infection Hypoxia BPH Hypothyroidism Diabetes Prostate cancer history Elevated liver enzymes Insomnia Obesity History of acute kidney injury Hyponatremia Yeast UTI Plan: Rehab protocol Dr. Kramer consult Supportive care 01/10/22: Monitor closely UTI treatment 01/11/2022: Diflucan Await final urine culture 01/12/2022: Diflucan Urology tomorrow Monitor low blood pressure (1) Chronic HFrEF (heart failure with reduced ejection fraction) Assessment & Plan: This is a new diagnosis in this patient. This is due to nonischemic cardiomyopathy. All of his guideline directed medications have been resumed except for eplerenone which we do not have on formulary. The inpatient pharmacy will order some from an outside pharmacy on Wednesday. (2) Nonischemic cardiomyopathy Assessment & Plan: He has newly diagnosed nonischemic cardiomyopathy of unknown known etiology. He did have COVID earlier in the year but it was 2 months before he developed his current symptoms so unclear whether or not this could have anything to do with the COVID infection. He underwent a cardiac catheterization at an outside facility that did not show any significant coronary artery disease. As above, his guideline directed medical therapy has all been resumed except for eplerenone. He has a prophylactic defibrillator in place which was just implanted on 01/08. (3) Persistent atrial fibrillation Assessment & Plan: This was also a new diagnosis in the patient. He is on apixaban for stroke prophylaxis and amiodarone for rhythm management. At some point, we will need to consider whether or not to discontinue the amiodarone. (4) Pulmonary hypertension Assessment & Plan: His outside echocardiogram report stated there were elevated right-sided heart pressures. This was likely due to the acute heart failure. This will need to be followed longitudinally. (5) Primary hypertension Assessment & Plan: His blood pressures have been running somewhat on the low side. I will decrease the doses of Entresto. (6) Mixed hyperlipidemia Assessment & Plan: Continue statin medication. (7) Type 2 diabetes mellitus with complication Assessment & Plan: This will be managed by the hospitalist. His Jardiance should be resumed. There is good data that this medication is not only effective for diabetes but also helps reduce heart failure admissions. GUERRERO COLE DO January 12, 2022 05:50
[2022-01-12 05:55] LABS: CALCIUM 8.7 MG/DL (8.5-10.1); CREATININE SERUM 1.17 MG/DL (0.60-1.30); POTASSIUM 3.6 MMOL/L (3.6-5.0)
[2022-01-12] MEDS: LEVOTHYROXINE 25 MCG (LEVOTHROID) TAB PO SCH (06:49)
[2022-01-12] MEDS: KCL 10 MEQ TAB (MICRO K) PO SCH (06:49)
[2022-01-12 07:59] VITALS: BP 95/64
--- NOTE | 2022-01-12 08:44 | Occupational Ther Daily Note ---
OT Current Status-Daily Note Subjective 5/10 pain in L shoulder. Pt agreeable to OT Tx. ADL-Treatment Therapy Code Descriptions/Definitions Functional [place] Measure: 0=Not Assessed/NA 4=Minimal Assistance 1=Total Assistance 5=Supervision or Setup 2=Maximal Assistance 6=Modified [place] 3=Moderate Assistance 7=Complete IndependenceSCALE: Activities may be completed with or without assistive devices. 2-Foecqjmaqh-fiscxnu completes the activity by him/herself with no assistance from a helper. 5-Set-up or Clean-up Assistance-helper sets up or cleans up; patient completes activity. [place] assists only prior to or following the activity. 4-Supervision or Touching Assistance-helper provides verbal cues and/or touching/steadying and/or contact guard assistance as patient completes activity. Assistance may be provided throughout the activity or intermittently. 3-Partial/Moderate Assistance-helper does LESS THAN HALF the effort. [place] lifts, holds or supports trunk or limbs, but provides less than half the effort. 2-Substantial/Maximal Assistance-helper does MORE THAN HALF the effort. [place] lifts or holds trunk or limbs and provides more than half the effort. 3-Fjjpsbrdp-kzjggr does ALL the effort. Patient does none of the effort to complete the activity. Or, the assistance of 2 or more helpers is required for the patient to complete the activity. If activity was not attempted, code reason: 7-Patient Refused. 9-Not Applicable-not attempted and the patient did not perform the activity before the current illness, exacerbation or injury. 10-Not Attempted due to Environmental Limitations-(lack of equipment, weather restraints, etc.). 88-Not Attempted due to Medical Conditions or Safety Concerns. Shower/Bathe Self (QC): 7 Lower Body Dressing (QC): 7 Toileting Hygiene (QC): 7 Other Treatment Pt up in recliner, agreeable to OT Tx. Pt declines showering on this date. Pt transferred from recliner to w/c, SPT, CGA. Pt propelled w/c to therapy gym (BLEs and RUE). OT tx focused on increasing BUE strength and activity tolerance. Pt completed the following BUE exercises: RUE shoulder flexion (2lb weight), LUE shoulder flexion to 90 degrees (no weight), & 3lb weight for the following: elbow flexion/extension, pronation/supination, and wrist flexion. Pt completed nut/bolt task, placing/removing x16 nuts/bolts from block, using BUEs, within 90degree precaution of LUE. Pt then removed beads from heavy resistance (green) theraputty. Pt completed arm bike, x10 mins, 15 Watt resistance, RUE only, 1 rest break. Pt propelled w/c back to his room, min A sit to stand from w/c, then CGA transfer to recliner. Post tx, pt in recliner, call light in reach and all needs met. Education OT Patient Education: Correct positioning, Energy conservation, Modified ADL t echniques, Progress toward Goal/Update tx plan, Purpose of tx/functional activities, Rehab process Teaching Recipient: Patient Teaching Methods: Discussion Response to Teaching: Verbalize Understanding OT Short Term Goals Short Term Goals Time Frame: January 17, 2022 Eatin Oral hygiene: 6 Toileting hygiene: 4 Shower/bathe self: 3 Upper body dressin Lower body dressin Putting on/taking off footwear: 3 OT Correction Goals Courseware Developer Goals Time Frame: January 24, 2022 Eating (QC): 6 Oral Hygiene (QC): 6 Toileting Hygiene (QC): 6 Shower/Bathe Self (QC): 5 Upper Body Dressing (QC): 6 Lower Body Dressing (QC): 5 On/Off Footwear (QC): 5 Additional Goals: 1-Demonstrate ADL Tasks, 2-Verbalize Understanding, 3- ImproveStrength/Saul 1=Demonstrate adherence to instructed precautions during ADL tasks. 2=Patient will verbalize/demonstrate understanding of assistive devices/modifications for ADL. 3=Patient will improve strength/tolerance for activity to enable patient to perform ADL's. OT Education/Plan Problem List/Assessment Assessment: Decreased Activ Tolerance, Decreased UE Strength, Impaired Funct Balance, Impaired I ADL's, Impaired Self-Care Skills, Restricted Funct UE ROM Discharge Recommendations Plan/Recommendations: Continue POC Treatment Plan/Plan of Care Patient would benefit from OT for education, treatment and training to promote independence in ADL's, mobility, safety and/or upper extremity function for ADL's. Plan of Care: ADL Retraining, Functional Mobility Treatment Duration: January 10, 2022 Frequency: Modified Program (IRF) Estimated Hrs Per Day: Other Agreement: Yes Rehab Potential: Good Time/GCodes Start Time: 07:45 Stop Time: 09:00 Total Time Billed (hr/min): 75 Billed Treatment Time 1, EX 2 (30'), FA 3 (45') MINOR DAVENPORT OT January 12, 2022 08:44
[2022-01-12] MEDS: APIXABAN 5 MG (ELIQUIS) TABLET PO SCH ×2 (09:12→20:11)
[2022-01-12] MEDS: ASPIRIN E.C. 81 MG (ECOTRIN) TAB PO SCH (09:12)
[2022-01-12] MEDS: TAMSULOSIN 0.4 MG (FLOMAX) CAP PO SCH (09:12)
[2022-01-12] MEDS: SIMvastatin 10 MG (ZOCOR) TAB PO SCH (09:12)
[2022-01-12] MEDS: fluCOnazole (DIFLUCAN) 100 MG TAB PO SCH (09:12)
[2022-01-12] MEDS: FLUTICASONE NASAL SPRAY (FLONASE) 16 GM BTL NS SCH (09:12)
[2022-01-12] MEDS: LORATADINE (CLARITIN) 10 MG TAB PO SCH (09:12)
[2022-01-12] MEDS: AMIODARONE 200 MG (CORDARONE) TAB PO SCH (09:13)
[2022-01-12] MEDS: EMPAGLIFLOZIN 10 MG TABLET (JARDIANCE) PO SCH (09:13)
[2022-01-12] MEDS: FUROSEMIDE 40 MG (LASIX) TAB PO SCH (09:13)
[2022-01-12] MEDS: DOCUSATE SODIUM 100 MG (COLACE) CAP PO SCH ×2 (09:13→20:10)
[2022-01-12] MEDS: SENNA W/DOCUSATE (SENOKOT S) TABLET PO SCH ×2 (09:14→20:11)
[2022-01-12] MEDS: polyethylene glycoL POWDER 17 GM (MIRALAX) PACK PO SCH ×2 (09:14→20:10)
--- NOTE | 2022-01-12 09:59 | Cardiology Progress Note ---
Progress Note-Cardiology Events since last exam Date Seen by Provider: January 12, 2022 Time Seen by Provider: 09:57 Events since last exam I am following him due to heart failure. Over the weekend, he has been having intermittently low blood pressures and his heart failure medication had to be adjusted. He does have some lightheadedness if he stands up quickly but denies syncope. He continues to have dyspnea on exertion but this is better than when he first went to the outside hospital about 1 month ago. He denies chest pain or palpitations. He still has mild ankle edema. Certain portions of this document may have been dictated utilizing voice recognition technology. Inherent to this technology, typographical and grammatical errors may exist. As much as I am diligent to identify and correct these mistakes, some errors may remain in the document. Vitals Last set of Vitals Signs Vital Signs 01/12/22 01/12/22 07:59 09:47 Temp 35.6 Pulse 88 Resp 16 B/P (MAP) 95/64 (74) Pulse Ox 98 O2 Delivery Room Air Labs Labs Laboratory Tests 01/12/22 05:08 Exam Vital Signs Vital Signs Date Time Temp Pulse Resp B/P (MAP) Pulse Ox O2 Delivery O2 Flow Rate FiO2 01/12/22 09:47 Room Air 01/12/22 07:59 35.6 88 16 95/64 (74) 98 Physical Exam General: Alert. No acute distress. Eye: No xanthelasma. HENT: Normocephalic. Neck: Jugular venous pressure does not appear elevated. Respiratory: Lungs are clear to auscultation but decreased at the bases bilaterally. Respirations are non-labored. Breath sounds are equal. Symmetrical chest wall expansion. Cardiovascular: Normal rate. Regular rhythm. 1/6 systolic ejection murmur. No gallop. Trace bilateral pretibial edema. Gastrointestinal: Soft. Normal bowel sounds. Skin: Warm. Dry. Neurologic: Alert and oriented to person, place, time. Cranial nerves 3-11 grossly intact. Psychiatric: Cooperative. Appropriate mood & affect. Labs Laboratory Tests Test 01/11/22 20:14 01/12/22 05:08 01/12/22 05:33 Range/Units Glucometer 134 H 121 H 70-110 MG/DL Sodium Level 132 L 135-145 MMOL/L Potassium Level 3.6 3.6-5.0 MMOL/L Chloride Level 97 L 98-107 MMOL/L Carbon Dioxide Level 17 L 21-32 MMOL/L Anion Gap 18 H 5-14 MMOL/L Blood Urea Nitrogen 18 7-18 MG/DL Creatinine 1.17 0.60-1.30 MG/DL Estimat Glomerular Filtration Rate 66 BUN/Creatinine Ratio 15 Glucose Level 120 H 70-105 MG/DL Calcium Level 8.7 8.5-10.1 MG/DL Diagnosis/Problems Diagnosis/Problems (1) Chronic HFrEF (heart failure with reduced ejection fraction) Assessment & Plan: This is a recent diagnosis in this patient. This is due to nonischemic cardiomyopathy. All of his guideline directed medications have been resumed except for eplerenone which we do not have on formulary. I have had to decrease his guideline directed medical therapy due to low blood pressures. (2) Nonischemic cardiomyopathy Assessment & Plan: He has a recently diagnosed nonischemic cardiomyopathy of unknown known etiology. He did have COVID earlier in the year but it was 2 months before he developed his current symptoms so unclear whether or not this could have anything to do with the COVID infection. He underwent a cardiac catheterization at an outside facility that did not show any significant coronary artery disease. As above, his guideline directed medical therapy has all been resumed except for eplerenone. He has a prophylactic defibrillator in place which was just implanted on 01/08. (3) Persistent atrial fibrillation Assessment & Plan: This was also a new diagnosis in the patient. He is on apixaban for stroke prophylaxis and amiodarone for rhythm management. At some point, we will need to consider whether or not to discontinue the amiodarone. (4) Orthostatic hypotension Assessment & Plan: He has been having some symptomatic low blood pressures most likely due to his medication for the cardiomyopathy and heart failure. I have reduced the dose of Entresto. We may need to stagger his medications to help avoid hypotension. (5) Pulmonary hypertension Assessment & Plan: His outside echocardiogram report stated there were elevated right-sided heart pressures. This was likely due to the acute heart failure. This will need to be followed longitudinally. (6) Primary hypertension Assessment & Plan: His blood pressures have been running somewhat on the low side. I have adjusted his medication as outlined above (7) Mixed hyperlipidemia Assessment & Plan: Continue simvastatin. (8) Type 2 diabetes mellitus with complication Assessment & Plan: This will be managed by the hospitalist. His Jardiance should be resumed. There is good data that this medication is not only effective for diabetes but also helps reduce heart failure admissions. LAILA RAMOS JR, MD January 12, 2022 09:59
--- NOTE | 2022-01-12 11:15 | ST Cognitive Linguistic Eval ---
Speech Evaluation-General Medical Diagnosis Acute Decompensated Heart Failure/Defib Placement Onset Date: January 08, 2022 Therapy Diagnosis Therapy Diagnosis: Intact Neurocognitive Skills Precautions Precautions: Fall Precautions/Isolations: Fall Prevention, Standard Precautions Referral Referring Physician: Dr. Samanta Blank Reason for Referral: Evaluation/Treatment Medical History Pertinent Medical History: Atrial Fib, HTN Current History The patient is a 71 year old male with a past medical history of hypertension, hyperlipidemia, diabetes, and Covid-19 infection in September of 2021, who presented to the ARU secondary to debility from an extended cardiac hospital stay. Please see the patient's medical chart for specific details regarding his acute hospitalization. Reviewed History: Yes Social History Current Living Status: Spouse Speech PLF-Current Status Prior Level of Function The patient denied prior concerns or challenges with his speech, language, or cognition. The patient independently consumed medication with water without the presence of s/s of suspected aspiration. Subjective The patient was seated upright in his recliner, awake and alert upon entrance to his room by the clinician. The patient greeted the clinician appropriately and was agreeable to participation in the cognitive linguistic evaluation. Language Eval: Auditory Comprehends Simple Yes/No Ques: Functional Indent/Objects Multiple [place]: Functional Ident/Pics in [place]: Functional Follows 1-Step Commands: Functional Follows Complex Directions: Functional Follows General Conversations: Functional Language Eval: Verbal Language Completes Spontaneous Greeting: Functional Produces Auto, Serial Info: Functional Imitates Simple Words/Phrases: Functional Word Finding: Functional Requests Basic Needs: Functional States Basic Personal Info: Functional Expresses Complex Ideas: Functional Language Evaluation: Reading Follows Simple Written Direct: Functional Language Evaluation: Writing Writes to Simple Dictation: Functional Cognitive Patient Orientation The patient was independently oriented to self, location, month, day of week, date and year. Objective Cognitive Domain Attention: WNL Memory: WNL Problem Solving: Functional Executive Functions: WNL Visuospatial Skills: WNL Composite Severity Rating: WNL Clock Drawing Severity Rating: WNL Objective Formal/Standardized Tests [facility] Mental Status Exam (UMS) Results The patient demonstrated a result of +27/30 on the SLUMS correlating to a score within normal limits. Oral Motor/Speech Production Dysarthria or apraxia of speech were not demonstrated throughout the evaluation. The patient remained 100% intelligible in known and unknown contexts. Impression The patient demonstrated neurocognitive skills within normal limits. The patient received three points deducted from his final score due to repeating four digits in reverse in error and placing the clock hands in the incorrect position. Speech Patient Assess Expression of Ideas/Wants: Expression (4) Understanding Verbal Content: Understands (4) Brief Interview-Mental Status: Yes Repetition of Three Words: Three (3) Temporal Orientation: Year: Correct (3) Temporal Orientation: Month: Accurate within 5 days(2) Temporal Orientation: Day: Correct (1) Recall : Wear to say "Sock": Yes, no cue required (2) Recall : Color: Yes, no cue required (2) Recall : Bed: Yes, no cue required (2) Memory/Recall Ability: Current season, That he or she is in a hsp/hsp unit Speech-Plan Treatment Plan Speech Therapy Treatment Plan: Discontinue ST Treatment Duration: January 10, 2022 Frequency: 1 time per week Estimated Hrs Per Day: .5 hour per day Rehab Potential: Good Pt/Family Agrees to Plan: Yes Safety Risks/Education Teaching Recipient: Patient Teaching Methods: Discussion Response to Teaching: Verbalize Understanding Education Topics Provided: Results of NATHALY Plan of Care Time Speech Therapy Time In: 09:00 Speech Therapy Time Out: 09:30 Total Billed Time: 30 Billed Treatment Time 1, BRIAN HAQ [facility] January 12, 2022 11:15
--- NOTE | 2022-01-12 11:26 | Physical Therapy Daily Note ---
PT Daily Note-Current Subjective Patient was in chair upon entering and agreeable to PT. Patient has no new complaints except that his catheter has been giuliana painful. Pain Numeric Pain Scale: 0-No Pain Mental Status Patient Orientation: Person, Place, Situation Transfers SCALE: Activities may be completed with or without assistive devices. 8-Xwvcrhdgyw-zcucbno completes the activity by him/herself with no assistance from a helper. 5-Set-up or Clean-up Assistance-helper sets up or cleans up; patient completes activity. [place] assists only prior to or following the activity. 4-Supervision or Touching Assistance-helper provides verbal cues and/or touching/steadying and/or contact guard assistance as patient completes activity. Assistance may be provided throughout the activity or intermittently. 3-Partial/Moderate Assistance-helper does LESS THAN HALF the effort. [place] lifts, holds or supports trunk or limbs, but provides less than half the effort. 2-Substantial/Maximal Assistance-helper does MORE THAN HALF the effort. [place] lifts or holds trunk or limbs and provides more than half the effort. 4-Oatkeydxz-gyhpgd does ALL the effort. Patient does none of the effort to complete the activity. Or, the assistance of 2 or more helpers is required for the patient to complete the activity. If activity was not attempted, code reason: 7-Patient Refused. 9-Not Applicable-not attempted and the patient did not perform the activity before the current illness, exacerbation or injury. 10-Not Attempted due to Environmental Limitations-(lack of equipment, weather restraints, etc.). 88-Not Attempted due to Medical Conditions or Safety Concerns. Sit to Stand (QC): 4 CGA Weight Bearing Right Lower Extremity: Right Full Weight Bearing Left Lower Extremity: Left Full Weight Bearing Gait Training Does the Patient Walk?: Yes Distance: 120', 60' Walk 10 feet (QC): 4 Walk 50 ft with 2 Turns(QC): 4 Gait Assistive Device: FWW Relatively normal gait pattern. Exercises Standing: Heel/toe raises, 3 way Ex=Flex, Abd, Ext (20reps), Mini squats Standing Reps: 30 NuStep Minutes: 15 NuStep Workload: 3 Treatments Ambulation, LE strengthening. Assessment Current Status: Good Progress Patient was able to ambulate much further distances with a FWW, but is still limited due to decreased endurance, and strength. Patient requires lots of rest breaks with LE exercises and after ambulating short distances as well. PT Short Term Goals Short Term Goals Time Frame: January 16, 2022 Roll Left & Right: 4 Sit to lyin (CGA) Lying to sitting on side of be: 4 (CGA) Sit to stand: 3 Chair/wsy-xx-boccw transfer: 3 Toilet transfer: 3 Car transfer: 3 Walk 10 feet: 4 (CGA) Walk 50 feet with two turns: 3 Walk 150 feet: 3 Walking 10ft on uneven surface: 3 1 step (curb): 4 PT Snf Goals Snf Goals PT Rough Carpenter Goals Time Frame: January 30, 2022 Roll Left & Right (QC): 6 Sit to Lying (QC): 4 (SBA) Lying-Sitting on Side/Bed(QC): 4 (SBA) Sit to Stand (QC): 4 (CGA) Chair/Jkt-rt-Onjiq Xfer(QC): 4 (CGA) Toilet Transfer (QC): 4 (CGA) Car Transfer (QC): 4 (CGA) Does the Patient Walk: Yes Walk 10 feet (QC): 4 (SBA) Walk 50ft with 2 Turns (QC): 4 (CGA) Walk 150 ft (QC): 4 (CGA) Walking 10ft on Uneven Surface: 4 (CGA) 1 Step (curb) (QC): 4 (CGA) 4 Steps (QC): 88 12 Steps (QC): 88 Picking up an Object (QC): 4 (CGA with forest ecologist) Does the Pt use WC or Scooter?: No Wheel 50 feet with 2 turns (QC: 9 Type: N/A Wheel 150 feet: 9 Type: N/A PT Plan Problem List Problem List: Activity Tolerance, Functional Strength, Safety, Balance, Gait, Transfer, Bed Mobility, ROM Treatment/Plan Treatment Plan: Continue Plan of Care Treatment Plan: Bed Mobility, Education, Functional Activity Saul, Functional Strength, Group Therapy, Gait, Safety, Therapeutic Exercise, Transfers Treatment Duration: January 30, 2022 Frequency: At least 5 of 7 days/Wk (IRF) Estimated Hrs Per Day: 1.5 hours per day Patient and/or Family Agrees t: Yes Safety Risks/Education Patient Education: Gait Training, Reviewed Precautions, Correct Positioning, Safety Issues Teaching Recipient: Patient Teaching Methods: Demonstration, Discussion Response to Teaching: Verbalize Understanding, Return Demonstration Time/GCodes Time In: 1030 Time Out: 1130 Total Billed Treatment 1 visit GT 15min EX 45min SOLO MULLER PT January 12, 2022 11:26
[2022-01-12] MEDS: ACETAMINOPHEN 325 MG TABLET PO PRN ×2 (12:38→21:31)
--- NOTE | 2022-01-12 13:29 | Physical Therapy Daily Note ---
PT Daily Note-Current Subjective Patient declined ambulation this p.m. due to fatigue. Agrees to exercises Mental Status Patient Orientation: Normal For Age Transfers SCALE: Activities may be completed with or without assistive devices. 5-Ctrkecgqll-fbnxrpg completes the activity by him/herself with no assistance from a helper. 5-Set-up or Clean-up Assistance-helper sets up or cleans up; patient completes a ctivity. [place] assists only prior to or following the activity. 4-Supervision or Touching Assistance-helper provides verbal cues and/or touching/steadying and/or contact guard assistance as patient completes activity. Assistance may be provided throughout the activity or intermittently. 3-Partial/Moderate Assistance-helper does LESS THAN HALF the effort. [place] lifts, holds or supports trunk or limbs, but provides less than half the effort. 2-Substantial/Maximal Assistance-helper does MORE THAN HALF the effort. [place] lifts or holds trunk or limbs and provides more than half the effort. 3-[place]-wuzmdk does ALL the effort. Patient does none of the effort to complete the activity. Or, the assistance of 2 or more helpers is required for the patient to complete the activity. If activity was not attempted, code reason: 7-Patient Refused. 9-Not Applicable-not attempted and the patient did not perform the activity before the current illness, exacerbation or injury. 10-Not Attempted due to Environmental Limitations-(lack of equipment, weather restraints, etc.). 88-Not Attempted due to Medical Conditions or Safety Concerns. Sit to Stand (QC): 4 (SBA) Weight Bearing Right Lower Extremity: Right Full Weight Bearing Left Lower Extremity: Left Full Weight Bearing Exercises Seated Therapy Exercises: Ankle pumps, Long arc quads, Hip flexion, Hip abd/add, Glut set Seated Reps: 15 Standing: Sit to Stand Standing Reps: 5 Assessment Patient tolerated treatment well and remains up in recliner with needs met. PT educated patient on elevating bilateral LE to decrease edema, however, patient declined to do so. Increase activity as tolerated by patient. PT Short Term Goals Short Term Goals Time Frame: January 16, 2022 Roll Left & Right: 4 Sit to lyin (CGA) Lying to sitting on side of be: 4 (CGA) Sit to stand: 3 Chair/kws-qs-wnlnq transfer: 3 Toilet transfer: 3 Car transfer: 3 Walk 10 feet: 4 (CGA) Walk 50 feet with two turns: 3 Walk 150 feet: 3 Walking 10ft on uneven surface: 3 1 step (curb): 4 PT Certified Physician'S Assistant Goals Group Home Goals PT Group Home Goals Time Frame: January 30, 2022 Roll Left & Right (QC): 6 Sit to Lying (QC): 4 (SBA) Lying-Sitting on Side/Bed(QC): 4 (SBA) Sit to Stand (QC): 4 (CGA) Chair/Xfq-ht-Lmbhn Xfer(QC): 4 (CGA) Toilet Transfer (QC): 4 (CGA) Car Transfer (QC): 4 (CGA) Does the Patient Walk: Yes Walk 10 feet (QC): 4 (SBA) Walk 50ft with 2 Turns (QC): 4 (CGA) Walk 150 ft (QC): 4 (CGA) Walking 10ft on Uneven Surface: 4 (CGA) 1 Step (curb) (QC): 4 (CGA) 4 Steps (QC): 88 12 Steps (QC): 88 Picking up an Object (QC): 4 (CGA with vending technician) Does the Pt use WC or Scooter?: No Wheel 50 feet with 2 turns (QC: 9 Type: N/A Wheel 150 feet: 9 Type: N/A PT Plan Treatment/Plan Treatment Plan: Continue Plan of Care Treatment Plan: Bed Mobility, Education, Functional Activity Saul, Functional Strength, Group Therapy, Gait, Safety, Therapeutic Exercise, Transfers Treatment Duration: January 30, 2022 Frequency: At least 5 of 7 days/Wk (IRF) Estimated Hrs Per Day: 1.5 hours per day Patient and/or Family Agrees t: Yes Time/GCodes Time In: 1310 Time Out: 1325 Total Billed Treatment Time: 15 Total Billed Treatment 1 visit EX 15 min MARIBEL CHOI PT January 12, 2022 13:29
[2022-01-12] MEDS: EPLERONONE 25 MG PO SCH (16:31)
[2022-01-12 19:31] VITALS: BP 91/64
[2022-01-12] MEDS: SACUBITRIL/VALSARTAN 24/26 MG (ENTRESTO) TABLET PO SCH (20:11)
[2022-01-12] MEDS: CYCLOBENZAPRINE 10 MG (FLEXERIL) TAB PO PRN (21:30)
[2022-01-12] MEDS: ZOLPIDEM 5 MG (AMBIEN) TAB PO PRN (21:30)
[2022-01-12] MEDS: ONDANSETRON 4 MG (ZOFRAN) ORAL DISSOLVE TAB PO PRN (23:10)
--- NOTE | 2022-01-13 06:04 | PM&R Progress Note ---
Subjective HPI/CC On Admission Date Seen by Provider: January 13, 2022 Time Seen by Provider: 09:30 Subjective/Events-last exam 01/13/2022: Patient doing really well Urology will see him today No pain is reported Seems to be recovering well Hypotension limits giving most cardiac meds 01/12/2022: Dr. Hendricks will see him tomorrow Diflucan maintain for yeast UTI No pain is reported Improving ambulation No falls Blood pressure runs low 01/11/2022: Patient doing well We will consult urology tomorrow Yeast will be treated with Diflucan Awaiting final urine culture Checked meds and labs 01/10/2022: Patient doing well at bedside reviewing meds with nurse Changing out catheter tubing UA sent down will hold off on treatment until culture known Yeast noted so we will start Diflucan Review of Systems General: Fatigue, Malaise Pulmonary: Dyspnea Objective Exam Vital Signs Vital Signs Date Time Temp Pulse Resp B/P (MAP) Pulse Ox O2 Delivery O2 Flow Rate FiO2 01/13/22 21:08 98 Room Air 01/13/22 19:15 35.6 85 20 96/66 (76) Capillary Refill : General Appearance: No Apparent Distress, WD/WN, Chronically ill, Obese HEENT: PERRL/EOMI, Normal ENT Inspection, Pharynx Normal Neck: Full Range of Motion, Normal Inspection, Non Tender, Supple, Carotid Bruit Respiratory: Chest Non Tender, Lungs Clear, No Accessory Muscle Use, No Respiratory Distress, Decreased Breath Sounds Cardiovascular: No Edema, No Gallop, No JVD, No Murmur, Normal Peripheral Pulses, Irregularly Irregular Gastrointestinal: Normal Bowel Sounds, No Organomegaly, No Pulsatile Mass, Non Tender, Soft Back: Normal Inspection, No CVA Tenderness, No Vertebral Tenderness Extremity: Normal Capillary Refill, Normal Inspection, Normal Range of Motion, Non Tender, No Calf Tenderness, No Pedal Edema Neurologic/Psychiatric: Alert, Oriented x3, No Motor/Sensory Deficits, Normal Mood/Affect Skin: Normal Color, Warm/Dry Lymphatic: No Adenopathy Results/Procedures Lab Patient resulted labs reviewed. FIM Transfers Therapy Code Descriptions/Definitions Functional [place] Measure: 0=Not Assessed/NA 4=Minimal Assistance 1=Total Assistance 5=Supervision or Setup 2=Maximal Assistance 6=Modified [place] 3=Moderate Assistance 7=Complete IndependenceSCALE: Activities may be completed with or without assistive devices. 7-Sfmnengxus-ovzkycu completes the activity by him/herself with no assistance from a helper. 5-Set-up or Clean-up Assistance-helper sets up or cleans up; patient completes activity. [place] assists only prior to or following the activity. 4-Supervision or Touching Assistance-helper provides verbal cues and/or touching/steadying and/or contact guard assistance as patient completes activity. Assistance may be provided throughout the activity or intermittently. 3-Partial/Moderate Assistance-helper does LESS THAN HALF the effort. [place] lifts, holds or supports trunk or limbs, but provides less than half the effort. 2-Substantial/Maximal Assistance-helper does MORE THAN HALF the effort. [place] lifts or holds trunk or limbs and provides more than half the effort. 2-Qmlrqrqgj-uzctsl does ALL the effort. Patient does none of the effort to complete the activity. Or, the assistance of 2 or more helpers is required for the patient to complete the activity. If activity was not attempted, code reason: 7-Patient Refused. 9-Not Applicable-not attempted and the patient did not perform the activity before the current illness, exacerbation or injury. 10-Not Attempted due to Environmental Limitations-(lack of equipment, weather restraints, etc.). 88-Not Attempted due to Medical Conditions or Safety Concerns. Roll Left to Right (QC): 3 Sit to Lying (QC): 4 Sit to Stand (QC): 4 (SBA) Chair/Cio-yc-Cwnou Xfer(QC): 2 Car Transfer (QC): 2 Gait Training Does the Patient Walk?: Yes Distance: 120', 60' Walk 10 feet (QC): 4 Walk 50 ft with 2 Turns(QC): 4 Walk 150 ft (QC): 88 Walking 10ft/uneven surface-QC: 88 Gait Persons Needed: 2 Gait Assistive Device: FWW Wheelchair Training Does the Pt Use a Wheelchair?: Yes Wheel 50 ft with 2 turns (QC): 1 Wheel 150 ft (QC): 1 Stair Training 1 Step (curb) (QC): 88 4 Steps (QC): 88 12 Steps (QC): 88 Balance Picking up an Object (QC): 88 ADL-Treatment Eating (QC): 6 Oral Hygiene (QC): 5 (Set up in bathroom to brush teeth.) Shower/Bathe Self (QC): 7 Upper Body Dressing (QC): 4 (SBA sitting EOB to doff/don shirt. Cues for left UE protection.) Lower Body Dressing (QC): 7 On/Off Footwear (QC): 2 Toileting Hygiene (QC): 7 Assessment/Plan Assessment and Plan Assess & Plan/Chief Complaint Assessment: Cardiac debility Nonischemic cardiomyopathy Persistent atrial fibrillation Previous COVID infection Hypoxia BPH Hypothyroidism Diabetes Prostate cancer history Elevated liver enzymes Insomnia Obesity History of acute kidney injury Hyponatremia Yeast UTI Plan: Rehab protocol Dr. Kramer consult Supportive care 01/10/22: Monitor closely UTI treatment 01/11/2022: Diflucan Await final urine culture 01/12/2022: Diflucan Urology tomorrow Monitor low blood pressure 01/13/2022: Appreciate urology Appreciate cardiology (1) Chronic HFrEF (heart failure with reduced ejection fraction) Assessment & Plan: This is a recent diagnosis in this patient. This is due to nonischemic cardiomyopathy. All of his guideline directed medications have been resumed except for eplerenone which we do not have on formulary. I have had to decrease his guideline directed medical therapy due to low blood pressures. (2) Nonischemic cardiomyopathy Assessment & Plan: He has a recently diagnosed nonischemic cardiomyopathy of unknown known etiology. He did have COVID earlier in the year but it was 2 months before he developed his current symptoms so unclear whether or not this could have anything to do with the COVID infection. He underwent a cardiac catheterization at an outside facility that did not show any significant coronary artery disease. As above, his guideline directed medical therapy has all been resumed except for eplerenone. He has a prophylactic defibrillator in place which was just implanted on 01/08. (3) Persistent atrial fibrillation Assessment & Plan: This was also a new diagnosis in the patient. He is on apixaban for stroke prophylaxis and amiodarone for rhythm management. At some point, we will need to consider whether or not to discontinue the amiodarone. (4) Orthostatic hypotension Assessment & Plan: He has been having some symptomatic low blood pressures most likely due to his medication for the cardiomyopathy and heart failure. I have reduced the dose of Entresto. We may need to stagger his medications to help avoid hypotension. (5) Pulmonary hypertension Assessment & Plan: His outside echocardiogram report stated there were elevated right-sided heart pressures. This was likely due to the acute heart failure. This will need to be followed longitudinally. (6) Primary hypertension Assessment & Plan: His blood pressures have been running somewhat on the low side. I have adjusted his medication as outlined above (7) Mixed hyperlipidemia Assessment & Plan: Continue simvastatin. (8) Type 2 diabetes mellitus with complication Assessment & Plan: This will be managed by the hospitalist. His Jardiance should be resumed. There is good data that this medication is not only effective for diabetes but also helps reduce heart failure admissions. GUERRERO COLE DO January 13, 2022 06:04
[2022-01-13] MEDS: LEVOTHYROXINE 25 MCG (LEVOTHROID) TAB PO SCH (06:35)
[2022-01-13] MEDS: KCL 10 MEQ TAB (MICRO K) PO SCH (06:35)
[2022-01-13 07:29] VITALS: BP 97/54
[2022-01-13 07:39] VITALS: BP 157/70
[2022-01-13] MEDS: SACUBITRIL/VALSARTAN 24/26 MG (ENTRESTO) TABLET PO SCH ×2 (07:58→21:03)
[2022-01-13] MEDS: polyethylene glycoL POWDER 17 GM (MIRALAX) PACK PO SCH ×2 (07:59→21:08)
[2022-01-13] MEDS: SENNA W/DOCUSATE (SENOKOT S) TABLET PO SCH ×2 (07:59→21:08)
[2022-01-13] MEDS: DOCUSATE SODIUM 100 MG (COLACE) CAP PO SCH ×2 (07:59→21:08)
[2022-01-13] MEDS: TAMSULOSIN 0.4 MG (FLOMAX) CAP PO SCH (08:00)
[2022-01-13] MEDS: ASPIRIN E.C. 81 MG (ECOTRIN) TAB PO SCH (08:00)
[2022-01-13] MEDS: AMIODARONE 200 MG (CORDARONE) TAB PO SCH (08:00)
[2022-01-13] MEDS: fluCOnazole (DIFLUCAN) 100 MG TAB PO SCH (08:00)
[2022-01-13] MEDS: LORATADINE (CLARITIN) 10 MG TAB PO SCH (08:00)
[2022-01-13] MEDS: APIXABAN 5 MG (ELIQUIS) TABLET PO SCH ×2 (08:01→21:02)
[2022-01-13] MEDS: EMPAGLIFLOZIN 10 MG TABLET (JARDIANCE) PO SCH (08:01)
[2022-01-13] MEDS: SIMvastatin 10 MG (ZOCOR) TAB PO SCH (08:01)
[2022-01-13] MEDS: FLUTICASONE NASAL SPRAY (FLONASE) 16 GM BTL NS SCH (08:03)
[2022-01-13] MEDS: FUROSEMIDE 40 MG (LASIX) TAB PO SCH (08:06)
--- NOTE | 2022-01-13 08:57 | Occupational Ther Daily Note ---
OT Current Status-Daily Note Subjective Pt up in recliner, agreeable to OT Tx. Mental Status/Objective Patient Orientation: Person, Place, Situation ADL-Treatment Therapy Code Descriptions/Definitions Functional [place] Measure: 0=Not Assessed/NA 4=Minimal Assistance 1=Total Assistance 5=Supervision or Setup 2=Maximal Assistance 6=Modified [place] 3=Moderate Assistance 7=Complete IndependenceSCALE: Activities may be completed with or without assistive devices. 9-Zvpqhjhrqz-nzripga completes the activity by him/herself with no assistance from a helper. 5-Set-up or Clean-up Assistance-helper sets up or cleans up; patient completes activity. [place] assists only prior to or following the activity. 4-Supervision or Touching Assistance-helper provides verbal cues and/or touching/steadying and/or contact guard assistance as patient completes activity. Assistance may be provided throughout the activity or intermittently. 3-Partial/Moderate Assistance-helper does LESS THAN HALF the effort. [place] lifts, holds or supports trunk or limbs, but provides less than half the effort. 2-Substantial/Maximal Assistance-helper does MORE THAN HALF the effort. [place] lifts or holds trunk or limbs and provides more than half the effort. 1-[place]-libacg does ALL the effort. Patient does none of the effort to complete the activity. Or, the assistance of 2 or more helpers is required for the patient to complete the activity. If activity was not attempted, code reason: 7-Patient Refused. 9-Not Applicable-not attempted and the patient did not perform the activity before the current illness, exacerbation or injury. 10-Not Attempted due to Environmental Limitations-(lack of equipment, weather restraints, etc.). 88-Not Attempted due to Medical Conditions or Safety Concerns. Eating (QC): 6 Oral Hygiene (QC): 6 Shower/Bathe Self (QC): 5 Upper Body Dressing (QC): 5 Lower Body Dressing (QC): 4 (SBA, education on AE for threading RLE) On/Off Footwear: 2 (Max A doffing/donning gripper socks.) Toileting Hygiene (QC): 4 (SBA, pt able to manage clothing and wash buttocks in shower) Other Treatment Pt up in recliner, agreeable to OT Tx. Pt stood from recliner, SBA, and transfe rred into bathroom onto SC using FWW, SBA. Pt doffed clothes, then completed shower. Pt transferred to chair outside of shower to don clothes. Education provided on inside sales assistant and sock aide, pt demo'd understanding of inside sales assistant for donning pants, difficulty with sock aide but indicates his is able to help with footwear. He then sat at sink for oral care, hair brushing, and shaving, independent with grooming tasks. Pt transferred to EOB, SBA, then supine in order for zinc cream to be applied to periarea. Pt used FWW to perform functional mobility to therapy gym. Pt completed arm bike x10 mins RUE, 20 Watt resistance in order to increase activity tolerance and RUE strength. LUE not used with task due to precautions and soreness in L shoulder from procedure. Pt removed beads from heavy resistance (green) theraputty for fine motor strengthening and activity tolerance, able to locate all beads without cues. To increase BUE strength and activity tolerance, pt completed the following exercises using 3lb weight: bicep curls x25 RUE & x21 LUE, pronation/supination x20 RUE & x15 LUE. Pt used FWW to return to room, SBA, transferring to recliner. Post tx, pt in recliner, call light in reach and all needs met. Education OT Patient Education: Correct positioning, Energy conservation, Modified ADL techniques, Progress toward Goal/Update tx plan, Purpose of tx/functional activities, Rehab process Teaching Recipient: Patient Teaching Methods: Discussion Response to Teaching: Verbalize Understanding OT Short Term Goals Short Term Goals Time Frame: January 17, 2022 Eatin Oral hygiene: 6 Toileting hygiene: 4 Shower/bathe self: 3 Upper body dressin Lower body dressin Putting on/taking off footwear: 3 OT [employer] Hcm Developer Goals Correction Goals Time Frame: January 24, 2022 Eating (QC): 6 Oral Hygiene (QC): 6 Toileting Hygiene (QC): 6 Shower/Bathe Self (QC): 5 Upper Body Dressing (QC): 6 Lower Body Dressing (QC): 5 On/Off Footwear (QC): 5 Additional Goals: 1-Demonstrate ADL Tasks, 2-Verbalize Understanding, 3-ImproveStrength/Saul 1=Demonstrate adherence to instructed precautions during ADL tasks. 2=Patient will verbalize/demonstrate understanding of assistive devices/modifications for ADL. 3=Patient will improve strength/tolerance for activity to enable patient to perform ADL's. OT Education/Plan Problem List/Assessment Assessment: Decreased Activ Tolerance, Decreased UE Strength, Impaired Funct Balance, Impaired I ADL's, Impaired Self-Care Skills Discharge Recommendations Plan/Recommendations: Continue POC Treatment Plan/Plan of Care Patient would benefit from OT for education, treatment and training to promote independence in ADL's, mobility, safety and/or upper extremity function for ADL's. Plan of Care: ADL Retraining, Functional Mobility Treatment Duration: January 10, 2022 Frequency: Modified Program (IRF) Estimated Hrs Per Day: Other Agreement: Yes Rehab Potential: Good Time/GCodes Start Time: 08:00 Stop Time: 09:30 Total Time Billed (hr/min): 90 Billed Treatment Time 1, ADL 4 (60'), EX (20'), FA (10') MINOR DAVENPORT OT January 13, 2022 08:57
--- NOTE | 2022-01-13 10:06 | Cardiology Progress Note ---
Progress Note-Cardiology Events since last exam Date Seen by Provider: January 13, 2022 Time Seen by Provider: 10:05 Events since last exam I am following him due to recently diagnosed cardiomyopathy with heart failure with reduced ejection fraction. We have been intermittently holding his heart failure patient due to hypotension. He continues to work with physical therapy on our inpatient rehabilitation unit. He denies chest discomfort, dyspnea, palpitations, or syncope. His peripheral edema is slightly worse today. Certain portions of this document may have been dictated utilizing voice recognition technology. Inherent to this technology, typographical and grammatical errors may exist. As much as I am diligent to identify and correct these mistakes, some errors may remain in the document. Vitals Last set of Vitals Signs Vital Signs 01/13/22 01/13/22 01/13/22 07:29 08:00 12:28 Temp 35.7 Pulse 87 Resp 18 B/P (MAP) 87/57 (67) Pulse Ox 98 O2 Delivery Room Air Exam Vital Signs Vital Signs Date Time Temp Pulse Resp B/P (MAP) Pulse Ox O2 Delivery O2 Flow Rate FiO2 01/13/22 12:28 87 87/57 (67) 01/13/22 08:00 Room Air 01/13/22 07:29 35.7 18 98 Physical Exam General: Alert. No acute distress. Eye: No xanthelasma. HENT: Normocephalic. Neck: Jugular venous pressure does not appear elevated. Respiratory: Lungs are clear to auscultation but decreased at the bases bilaterally. Respirations are non-labored. Breath sounds are equal. Symmetrical chest wall expansion. Cardiovascular: Normal rate. Regular rhythm. 1/6 systolic ejection murmur. No gallop. 1+ bilateral pretibial edema slightly worse on the left. Gastrointestinal: Soft. Normal bowel sounds. Skin: Warm. Dry. Neurologic: Alert and oriented to person, place, time. Cranial nerves 3-11 grossly intact. Psychiatric: Cooperative. Appropriate mood & affect. Radiology ECHOCARDIOGRAM (01/13/2022): 1. Left ventricle: The cavity size is mildly increased. There is mild concentric hypertrophy. Systolic function is severely reduced. The estimated ejection fraction is 20-25%. Severe diffuse hypokinesis. Features are consistent with a pseudonormal left ventricular filling pattern, with concomitant abnormal relaxation and increased filling pressure (grade 2 diastolic dysfunction). 2. Right ventricle: Device wire noted in the right ventricle. 3. Right atrium: The right atrium is severely dilated with an area of 26 cm. 4. Aortic valve: The aortic valve appears tricuspid with thickened and calcified leaflets with restricted leaflet mobility. There appears to be at least moderate aortic stenosis although the gradients were not significantly elevated. This most likely represents low output, low gradient aortic stenosis. There is mild aortic regurgitation with a pressure halftime of 437 ms. 5. Mitral valve: There is moderate mitral regurgitation. 6. Tricuspid valve: There is moderate tricuspid regurgitation. 7. Pericardium, extracardiac: A small pericardial effusion is identified posterior to the heart. There is a moderate-sized left pleural effusion. 8. Inferior vena cava: The vessel is dilated. Respirophasic changes in dimension are absent. These findings are consistent with markedly elevated right atrial pressure (15 mmHg). 9. Pulmonary arteries: The estimated pulmonary artery systolic pressure is 35 mmHg assuming a right atrial pressure of 15 mmHg. Diagnosis/Problems Diagnosis/Problems (1) Chronic HFrEF (heart failure with reduced ejection fraction) Assessment & Plan: This is a recent diagnosis in this patient. This is due to nonischemic cardiomyopathy. All of his guideline directed medications have been resumed. I have had to decrease his guideline directed medical therapy due to low blood pressures. (2) Nonischemic cardiomyopathy Assessment & Plan: He has a recently diagnosed nonischemic cardiomyopathy of unknown known etiology. He did have COVID earlier in the year but it was 2 months before he developed his current symptoms so unclear whether or not this could have anything to do with the COVID infection. He underwent a cardiac catheterization at an outside facility that did not show any significant coronary artery disease. As above, his guideline directed medical therapy has all been resumed. He has a prophylactic defibrillator in place which was just implanted on 01/08. (3) Persistent atrial fibrillation Assessment & Plan: This was also a new diagnosis in the patient. He is on apixaban for stroke prophylaxis and amiodarone for rhythm management. At some point, we will need to consider whether or not to discontinue the amiodarone. (4) Orthostatic hypotension Assessment & Plan: He has been having some symptomatic low blood pressures most likely due to his medication for the cardiomyopathy and heart failure. I have reduced the dose of Entresto. I have asked his nurse to stagger his medications to help avoid hypotension. (5) Pulmonary hypertension Assessment & Plan: His outside echocardiogram report stated there were elevated right-sided heart pressures. This was likely due to the acute heart failure. This will need to be followed longitudinally. (6) Nonrheumatic aortic valve stenosis with regurgitation Assessment & Plan: He appears to have at least moderate aortic stenosis by visual inspection on his echocardiogram. He most likely has low gradients due to the severe cardiomyopathy. This condition will need to be followed longitudinally. (7) Primary hypertension Assessment & Plan: His blood pressures have been running somewhat on the low side. I have adjusted his medication as outlined above (8) Mixed hyperlipidemia Assessment & Plan: Continue simvastatin. (9) Type 2 diabetes mellitus with complication Assessment & Plan: This will be managed by the hospitalist. His Jardiance should be continued. There is good data that this medication is not only effective for diabetes but also helps reduce heart failure admissions. LAILA RAMOS JR, MD January 13, 2022 10:06
[2022-01-13] MEDS: EPLERONONE 25 MG PO SCH ×2 (10:25→12:28)
--- NOTE | 2022-01-13 10:56 | Physical Therapy Daily Note ---
PT Daily Note-Current Subjective Patient was in chair and agreeable to PT. He complains of R ear discomfort, and soreness near incision. Pain Location: No Pain Reported Mental Status Patient Orientation: Person, Place, Situation Attachments: Hawkins Catheter Transfers SCALE: Activities may be completed with or without assistive devices. 4-Hujdlcpwmk-vbapqrw completes the activity by him/herself with no assistance from a helper. 5-Set-up or Clean-up Assistance-helper sets up or cleans up; patient completes activity. [place] assists only prior to or following the activity. 4-Supervision or Touching Assistance-helper provides verbal cues and/or touching/steadying and/or contact guard assistance as patient completes activity. Assistance may be provided throughout the activity or intermittently. 3-Partial/Moderate Assistance-helper does LESS THAN HALF the effort. [place] lifts, holds or supports trunk or limbs, but provides less than half the effort. 2-Substantial/Maximal Assistance-helper does MORE THAN HALF the effort. [place] lifts or holds trunk or limbs and provides more than half the effort. 9-Lrpckjxke-hdcbas does ALL the effort. Patient does none of the effort to complete the activity. Or, the assistance of 2 or more helpers is required for the patient to complete the activity. If activity was not attempted, code reason: 7-Patient Refused. 9-Not Applicable-not attempted and the patient did not perform the activity before the current illness, exacerbation or injury. 10-Not Attempted due to Environmental Limitations-(lack of equipment, weather restraints, etc.). 88-Not Attempted due to Medical Conditions or Safety Concerns. Sit to Stand (QC): 3 Weight Bearing Right Lower Extremity: Right Full Weight Bearing Left Lower Extremity: Left Full Weight Bearing Gait Training Does the Patient Walk?: Yes Distance: 125', 75'x2 Walk 10 feet (QC): 4 Walk 50 ft with 2 Turns(QC): 4 Gait Assistive Device: FWW Wheelchair Training Does the Pt Use a Wheelchair?: No Exercises Standing: Sit to Stand Standing Reps: 20 elevated chair height NuStep Minutes: 15 NuStep Workload: 4 Treatments Ambulation, LE strengthening, Endurance Assessment Current Status: Good Progress, Fair Progress Patient increased total distance walk, but the distance at one time remained the same. He reports fatigue after walking short distances and needs intermittent sitting breaks. Patient demonstrates weakness with sit to stands as well needing Rosalino from low chairs, and required elevated chair height and assistance of hands to perform only 8 reps. Patient was left in chair with call light, tray, and all needs met. PT Short Term Goals Short Term Goals Time Frame: January 16, 2022 Roll Left & Right: 4 Sit to lyin (CGA) Lying to sitting on side of be: 4 (CGA) Sit to stand: 3 Chair/tes-pc-qrvcu transfer: 3 Toilet transfer: 3 Car transfer: 3 Walk 10 feet: 4 (CGA) Walk 50 feet with two turns: 3 Walk 150 feet: 3 Walking 10ft on uneven surface: 3 1 step (curb): 4 PT Senior Living Goals Interior Wall Assembler Goals PT Senior Living Goals Time Frame: January 30, 2022 Roll Left & Right (QC): 6 Sit to Lying (QC): 4 (SBA) Lying-Sitting on Side/Bed(QC): 4 (SBA) Sit to Stand (QC): 4 (CGA) Chair/Eig-ra-[place] Xfer(QC): 4 (CGA) Toilet Transfer (QC): 4 (CGA) Car Transfer (QC): 4 (CGA) Does the Patient Walk: Yes Walk 10 feet (QC): 4 (SBA) Walk 50ft with 2 Turns (QC): 4 (CGA) Walk 150 ft (QC): 4 (CGA) Walking 10ft on Uneven Surface: 4 (CGA) 1 Step (curb) (QC): 4 (CGA) 4 Steps (QC): 88 12 Steps (QC): 88 Picking up an Object (QC): 4 (CGA with babbitter) Does the Pt use WC or Scooter?: No Wheel 50 feet with 2 turns (QC: 9 Type: N/A Wheel 150 feet: 9 Type: N/A PT Plan Problem List Problem List: Activity Tolerance, Functional Strength, Safety, Balance, Gait, Transfer, Bed Mobility, ROM Treatment/Plan Treatment Plan: Continue Plan of Care Treatment Plan: Bed Mobility, Education, Functional Activity Saul, Functional Strength, Group Therapy, Gait, Safety, Therapeutic Exercise, Transfers Treatment Duration: January 30, 2022 Frequency: At least 5 of 7 days/Wk (IRF) Estimated Hrs Per Day: 1.5 hours per day Patient and/or Family Agrees t: Yes Safety Risks/Education Patient Education: Gait Training, Transfer Techniques, Correct Positioning, Safety Issues Teaching Recipient: Patient Teaching Methods: Discussion Response to Teaching: Verbalize Understanding, Return Demonstration Time/GCodes Time In: 1000 Time Out: 1100 Total Billed Treatment Time: 60 Total Billed Treatment 1 visit EX 15min FA 45min SOLO MULLER PT January 13, 2022 10:55
[2022-01-13 12:28] VITALS: BP 87/57
--- NOTE | 2022-01-13 13:31 | Physical Therapy Daily Note ---
PT Daily Note-Current Subjective Patient was in bed upon entering, and agreeable to tx. Patient had no new complaints. Pain Location: No Pain Reported Mental Status Patient Orientation: Person, Place, Situation Attachments: [place] Catheter Transfers SCALE: Activities may be completed with or without assistive devices. 3-Fdoqtcegqb-ebblcif completes the activity by him/herself with no assistance from a helper. 5-Set-up or Clean-up Assistance-helper sets up or cleans up; patient completes activity. [place] assists only prior to or following the activity. 4-Supervision or Touching Assistance-helper provides verbal cues and/or touching/steadying and/or contact guard assistance as patient completes activity. Assistance may be provided throughout the activity or intermittently. 3-Partial/Moderate Assistance-helper does LESS THAN HALF the effort. [place] lifts, holds or supports trunk or limbs, but provides less than half the effort. 2-Substantial/Maximal Assistance-helper does MORE THAN HALF the effort. [place] lifts or holds trunk or limbs and provides more than half the effort. 7-Ddupguxqt-rwnqbc does ALL the effort. Patient does none of the effort to complete the activity. Or, the assistance of 2 or more helpers is required for the patient to complete the activity. If activity was not attempted, code reason: 7-Patient Refused. 9-Not Applicable-not attempted and the patient did not perform the activity before the current illness, exacerbation or injury. 10-Not Attempted due to Environmental Limitations-(lack of equipment, weather restraints, etc.). 88-Not Attempted due to Medical Conditions or Safety Concerns. Sit to Stand (QC): 4 Weight Bearing Right Lower Extremity: Right Full Weight Bearing Left Lower Extremity: Left Full Weight Bearing Gait Training Does the Patient Walk?: Yes Distance: 75', 50'x2 Walk 10 feet (QC): 4 Walk 50 ft with 2 Turns(QC): 4 Gait Assistive Device: FWW Exercises Standing: Heel/toe raises, Mini squats Standing Reps: 10 Treatments LE strengthening, ambulation Assessment Current Status: Fair Progress Patient able to walk up to 75ft before needing to sit, and needed several seated rest breaks throughout treatment. He still demonstrates lack of endurance and strength with activities. Patient was left in bed with call light, tray, and all needs met. PT Short Term Goals Short Term Goals Time Frame: January 16, 2022 Roll Left & Right: 4 Sit to lyin (CGA) Lying to sitting on side of be: 4 (CGA) Sit to stand: 3 Chair/bip-ls-gbixa transfer: 3 Toilet transfer: 3 Car transfer: 3 Walk 10 feet: 4 (CGA) Walk 50 feet with two turns: 3 Walk 150 feet: 3 Walking 10ft on uneven surface: 3 1 step (curb): 4 PT Product Technician Goals Product Technician Goals PT Product Technician Goals Time Frame: January 30, 2022 Roll Left & Right (QC): 6 Sit to Lying (QC): 4 (SBA) Lying-Sitting on Side/Bed(QC): 4 (SBA) Sit to Stand (QC): 4 (CGA) Chair/Tpz-wx-Umszn Xfer(QC): 4 (CGA) Toilet Transfer (QC): 4 (CGA) Car Transfer (QC): 4 (CGA) Does the Patient Walk: Yes Walk 10 feet (QC): 4 (SBA) Walk 50ft with 2 Turns (QC): 4 (CGA) Walk 150 ft (QC): 4 (CGA) Walking 10ft on Uneven Surface: 4 (CGA) 1 Step (curb) (QC): 4 (CGA) 4 Steps (QC): 88 12 Steps (QC): 88 Picking up an Object (QC): 4 (CGA with labor economics teacher) Does the Pt use WC or Scooter?: No Wheel 50 feet with 2 turns (QC: 9 Type: N/A Wheel 150 feet: 9 Type: N/A PT Plan Problem List Problem List: Activity Tolerance, Functional Strength, Safety, Balance, Gait, Transfer, Bed Mobility, ROM Treatment/Plan Treatment Plan: Continue Plan of Care Treatment Plan: Bed Mobility, Education, Functional Activity Saul, Functional Strength, Group Therapy, Gait, Safety, Therapeutic Exercise, Transfers Treatment Duration: January 30, 2022 Frequency: At least 5 of 7 days/Wk (IRF) Estimated Hrs Per Day: 1.5 hours per day Patient and/or Family Agrees t: Yes Safety Risks/Education Patient Education: Gait Training, Transfer Techniques, Correct Positioning, Safety Issues Teaching Recipient: Patient Teaching Methods: Discussion Response to Teaching: Verbalize Understanding, Return Demonstration Time/GCodes Time In: 1300 Time Out: 1330 Total Billed Treatment Time: 30 Total Billed Treatment 1 visit FA 20min EX SOLO GAMINO PT January 13, 2022 13:31
--- NOTE | 2022-01-13 14:16 | CONSULTATION REPORT ---
DATE OF SERVICE: 01/13/2022 ATTENDING PHYSICIAN: Dr. Blank. SUMMARY: After reviewing the patient's record, interviewing him, this is a 71-year-old white man who went from one hospital to the other ones, has history of urinary retention, failing trial of voiding. He does not seem to be on any medication for it. He denies any previous similar episodes at home. He had the robotic-assisted laparoscopic prostatectomy many, many years ago from which he recovered well. He has a catheter in place. IMPRESSION: Urinary retention with history of failed trial of voiding. PLAN: We probably going to remove the catheter on him tomorrow in the morning and manage accordingly. Job ID: [id number] DocumentID: [id number] Dictated Date: 01/13/2022 13:53:13 Training And Quality Manager Date: 01/13/2022 14:15:59 Dictated By: CRIS MORILLO MD
--- NOTE | 2022-01-13 15:05 | Diagnostic Imaging Report ---
INDICATION: Heart failure PA and lateral chest obtained at 11:07 a.m. and compared to 01/11/2022. There is cardiomegaly again noted with unchanged pacemaker device. There is no change in small right pleural effusion with passive atelectasis in the right base. Left lung shows no focal infiltrate. There is a small left pleural effusion as well. IMPRESSION: Cardiomegaly with no change in pacemaker device. Mild right basilar atelectasis. Small bilateral pleural effusions, right greater than left. Dictated by: Dictated on workstation # [id number]
[2022-01-13 19:15] VITALS: BP 96/66
[2022-01-13] MEDS: ZOLPIDEM 5 MG (AMBIEN) TAB PO PRN (21:01)
[2022-01-13] MEDS: CYCLOBENZAPRINE 10 MG (FLEXERIL) TAB PO PRN (21:02)
[2022-01-13] MEDS: ACETAMINOPHEN 325 MG TABLET PO PRN (21:06)
--- NOTE | 2022-01-14 06:08 | PM&R Progress Note ---
Subjective HPI/CC On Admission Date Seen by Provider: January 14, 2022 Time Seen by Provider: 09:30 Subjective/Events-last exam 01/14/22: Pt is doing pretty well Complaining of congestion Flonase will be added to the Claritin I ordered yesterday Bowels moved a few days ago, refusing laxatives Dr. rKamer managing the hypotension Dr. Hendricks had me order discontinuation of the catheter Diflucan maintained for yeast UTI 01/13/2022: Patient doing really well Urology will see him today No pain is reported Seems to be recovering well Hypotension limits giving most cardiac meds 01/12/2022: Dr. Hendricks will see him tomorrow Diflucan maintain for yeast UTI No pain is reported Improving ambulation No falls Blood pressure runs low 01/11/2022: Patient doing well We will consult urology tomorrow Yeast will be treated with Diflucan Awaiting final urine culture Checked meds and labs 01/10/2022: Patient doing well at bedside reviewing meds with nurse Changing out catheter tubing UA sent down will hold off on treatment until culture known Yeast noted so we will start Diflucan Review of Systems General: Fatigue, Malaise Objective Exam Vital Signs Vital Signs Date Time Temp Pulse Resp B/P (MAP) Pulse Ox O2 Delivery O2 Flow Rate FiO2 01/14/22 21:00 94 Room Air 01/14/22 20:00 37.0 88 20 91/61 (71) Capillary Refill : General Appearance: No Apparent Distress, WD/WN, Chronically ill, Obese HEENT: PERRL/EOMI, Normal ENT Inspection, Pharynx Normal Neck: Full Range of Motion, Normal Inspection, Non Tender, Supple, Carotid Bruit Respiratory: Chest Non Tender, Lungs Clear, No Accessory Muscle Use, No Respiratory Distress, Decreased Breath Sounds Cardiovascular: No Edema, No Gallop, No JVD, No Murmur, Normal Peripheral Pulses, Irregularly Irregular Gastrointestinal: Normal Bowel Sounds, No Organomegaly, No Pulsatile Mass, Non Tender, Soft Back: Normal Inspection, No CVA Tenderness, No Vertebral Tenderness Extremity: Normal Capillary Refill, Normal Inspection, Normal Range of Motion, Non Tender, No Calf Tenderness, No Pedal Edema Neurologic/Psychiatric: Alert, Oriented x3, No Motor/Sensory Deficits, Normal Mood/Affect Skin: Normal Color, Warm/Dry Lymphatic: No Adenopathy Results/Procedures Lab Patient resulted labs reviewed. FIM Transfers Therapy Code Descriptions/Definitions Functional [place] Measure: 0=Not Assessed/NA 4=Minimal Assistance 1=Total Assistance 5=Supervision or Setup 2=Maximal Assistance 6=Modified [place] 3=Moderate Assistance 7=Complete IndependenceSCALE: Activities may be completed with or without assistive devices. 4-Hkusosvcwr-fkaoape completes the activity by him/herself with no assistance from a helper. 5-Set-up or Clean-up Assistance-helper sets up or cleans up; patient completes activity. [place] assists only prior to or following the activity. 4-Supervision or Touching Assistance-helper provides verbal cues and/or touching/steadying and/or contact guard assistance as patient completes activity. Assistance may be provided throughout the activity or intermittently. 3-Partial/Moderate Assistance-helper does LESS THAN HALF the effort. [place] lift s, holds or supports trunk or limbs, but provides less than half the effort. 2-Substantial/Maximal Assistance-helper does MORE THAN HALF the effort. [place] lifts or holds trunk or limbs and provides more than half the effort. 4-Qndqrelqg-hhzsmg does ALL the effort. Patient does none of the effort to complete the activity. Or, the assistance of 2 or more helpers is required for the patient to complete the activity. If activity was not attempted, code reason: 7-Patient Refused. 9-Not Applicable-not attempted and the patient did not perform the activity before the current illness, exacerbation or injury. 10-Not Attempted due to Environmental Limitations-(lack of equipment, weather restraints, etc.). 88-Not Attempted due to Medical Conditions or Safety Concerns. Roll Left to Right (QC): 3 Sit to Lying (QC): 4 Sit to Stand (QC): 4 Chair/Mvp-lx-Kccqw Xfer(QC): 2 Car Transfer (QC): 2 Gait Training Does the Patient Walk?: Yes Distance: 75', 50'x2 Walk 10 feet (QC): 4 Walk 50 ft with 2 Turns(QC): 4 Walk 150 ft (QC): 88 Walking 10ft/uneven surface-QC: 88 Gait Persons Needed: 2 Gait Assistive Device: FWW Wheelchair Training Does the Pt Use a Wheelchair?: No Wheel 50 ft with 2 turns (QC): 1 Wheel 150 ft (QC): 1 Type of Wheelchair: N/A Stair Training 1 Step (curb) (QC): 88 4 Steps (QC): 88 12 Steps (QC): 88 Balance Picking up an Object (QC): 88 ADL-Treatment Eating (QC): 6 Oral Hygiene (QC): 6 Shower/Bathe Self (QC): 5 Upper Body Dressing (QC): 5 Lower Body Dressing (QC): 4 (SBA, education on AE for threading RLE) On/Off Footwear (QC): 2 (Max A doffing/donning gripper socks.) Toileting Hygiene (QC): 4 (SBA, pt able to manage clothing and wash buttocks in shower) Assessment/Plan Assessment and Plan Assess & Plan/Chief Complaint Assessment: Cardiac debility Nonischemic cardiomyopathy Persistent atrial fibrillation Previous COVID infection Hypoxia BPH Hypothyroidism Diabetes Prostate cancer history Elevated liver enzymes Insomnia Obesity History of acute kidney injury Hyponatremia Yeast UTI Plan: Rehab protocol Dr. Kramer consult Supportive care 01/10/22: Monitor closely UTI treatment 01/11/2022: Diflucan Await final urine culture 01/12/2022: Diflucan Urology tomorrow Monitor low blood pressure 01/13/2022: Appreciate urology Appreciate cardiology 01/14/2022: DC catheter Appreciate urology (1) Chronic HFrEF (heart failure with reduced ejection fraction) Assessment & Plan: This is a recent diagnosis in this patient. This is due to nonischemic cardiomyopathy. All of his guideline directed medications have been resumed. I have had to decrease his guideline directed medical therapy due to low blood pressures. (2) Nonischemic cardiomyopathy Assessment & Plan: He has a recently diagnosed nonischemic cardiomyopathy of unknown known etiology. He did have COVID earlier in the year but it was 2 months before he developed his current symptoms so unclear whether or not this could have anything to do with the COVID infection. He underwent a cardiac catheterization at an outside facility that did not show any significant coronary artery disease. As above, his guideline directed medical therapy has all been resumed. He has a prophylactic defibrillator in place which was just implanted on 01/08. (3) Persistent atrial fibrillation Assessment & Plan: This was also a new diagnosis in the patient. He is on apixaban for stroke prophylaxis and amiodarone for rhythm management. At some point, we will need to consider whether or not to discontinue the amiodarone. (4) Orthostatic hypotension Assessment & Plan: He has been having some symptomatic low blood pressures most likely due to his medication for the cardiomyopathy and heart failure. I have reduced the dose of Entresto. I have asked his nurse to stagger his medications to help avoid hypotension. (5) Pulmonary hypertension Assessment & Plan: His outside echocardiogram report stated there were elevated right-sided heart pressures. This was likely due to the acute heart failure. This will need to be followed longitudinally. (6) Nonrheumatic aortic valve stenosis with regurgitation Assessment & Plan: He appears to have at least moderate aortic stenosis by visual inspection on his echocardiogram. He most likely has low gradients due to the severe cardiomyopathy. This condition will need to be followed longitudinally. (7) Primary hypertension Assessment & Plan: His blood pressures have been running somewhat on the low side. I have adjusted his medication as outlined above (8) Mixed hyperlipidemia Assessment & Plan: Continue simvastatin. (9) Type 2 diabetes mellitus with complication Assessment & Plan: This will be managed by the hospitalist. His Jardiance should be continued. There is good data that this medication is not only effective for diabetes but also helps reduce heart failure admissions. GUERRERO COLE DO January 14, 2022 06:08
[2022-01-14] MEDS: KCL 10 MEQ TAB (MICRO K) PO SCH (06:48)
[2022-01-14] MEDS: LEVOTHYROXINE 25 MCG (LEVOTHROID) TAB PO SCH (06:48)
[2022-01-14 07:29] VITALS: BP 92/60
[2022-01-14] MEDS: FLUTICASONE NASAL SPRAY (FLONASE) 16 GM BTL NS SCH (08:00)
[2022-01-14] MEDS: DOCUSATE SODIUM 100 MG (COLACE) CAP PO SCH ×2 (08:00→22:32)
[2022-01-14] MEDS: LORATADINE (CLARITIN) 10 MG TAB PO SCH (08:00)
[2022-01-14] MEDS: TAMSULOSIN 0.4 MG (FLOMAX) CAP PO SCH (08:01)
[2022-01-14] MEDS: ASPIRIN E.C. 81 MG (ECOTRIN) TAB PO SCH (08:01)
[2022-01-14] MEDS: fluCOnazole (DIFLUCAN) 100 MG TAB PO SCH (08:01)
[2022-01-14] MEDS: AMIODARONE 200 MG (CORDARONE) TAB PO SCH (08:02)
[2022-01-14] MEDS: EMPAGLIFLOZIN 10 MG TABLET (JARDIANCE) PO SCH (08:03)
[2022-01-14] MEDS: FUROSEMIDE 40 MG (LASIX) TAB PO SCH (08:03)
[2022-01-14] MEDS: SIMvastatin 10 MG (ZOCOR) TAB PO SCH (08:03)
[2022-01-14] MEDS: APIXABAN 5 MG (ELIQUIS) TABLET PO SCH ×2 (08:03→22:15)
[2022-01-14] MEDS: SENNA W/DOCUSATE (SENOKOT S) TABLET PO SCH ×2 (08:04→22:32)
[2022-01-14] MEDS: polyethylene glycoL POWDER 17 GM (MIRALAX) PACK PO SCH ×2 (08:04→22:32)
--- NOTE | 2022-01-14 08:17 | Occupational Ther Daily Note ---
OT Current Status-Daily Note Subjective Pt up in recliner, agreeable to OT Tx. Pt states he feels ready to leave and would leave today if we let him. Mental Status/Objective Patient Orientation: Person, Place, Time, Situation, Normal For Age Attachments: Hawkins Catheter ADL-Treatment Therapy Code Descriptions/Definitions Functional [place] Measure: 0=Not Assessed/NA 4=Minimal Assistance 1=Total Assistance 5=Supervision or Setup 2=Maximal Assistance 6=Modified [place] 3=Moderate Assistance 7=Complete IndependenceSCALE: Activities may be completed with or without assistive devices. 0-Pkejsjarml-pdbhdmr completes the activity by him/herself with no assistance from a helper. 5-Set-up or Clean-up Assistance-helper sets up or cleans up; patient completes activity. [place] assists only prior to or following the activity. 4-Supervision or Touching Assistance-helper provides verbal cues and/or touching/steadying and/or contact guard assistance as patient completes activity. Assistance may be provided throughout the activity or intermittently. 3-Partial/Moderate Assistance-helper does LESS THAN HALF the effort. [place] lifts, holds or supports trunk or limbs, but provides less than half the effort. 2-Substantial/Maximal Assistance-helper does MORE THAN HALF the effort. [place] lifts or holds trunk or limbs and provides more than half the effort. 2-[place]-llkray does ALL the effort. Patient does none of the effort to complete the activity. Or, the assistance of 2 or more helpers is required for the patient to complete the activity. If activity was not attempted, code reason: 7-Patient Refused. 9-Not Applicable-not attempted and the patient did not perform the activity before the current illness, exacerbation or injury. 10-Not Attempted due to Environmental Limitations-(lack of equipment, weather restraints, etc.). 88-Not Attempted due to Medical Conditions or Safety Concerns. Other Treatment Pt up in recliner, agreeable to OT Tx. Pt's nurse present at start of tx, providing pt with medications. Pt declined ADLs on this date, preferring to wait another day or two. Sit to stand from recliner, CGA, then pt used FWW to perform functional mobility to therapy gym, SBA. OT tx focused on increasing BUE strength and activity tolerance. Pt completed pegboard activity, placing/removing 1" pegs from pegboard, alternating hands. Pt able to complete x100 pegs, 1lb wrist weight LUE, 2 lb wrist weight RUE. Pt then removed beads from heavy resistance (green) theraputty, able to locate all beads without cues. Pt completed nut/bolt block, placing/removing nuts/bolts 2x16. Pt had 2lb wrist weight RUE, and 1lb wrist weight LUE. Pt able to maintain precautions during task, with 1 verbal reminder. Pt then completed arm bike, 5-10 Watt resistance resistance BUEs for activity tolerance and UE strengthening. Pt used FWW to return to his room, SBA, transferring to recliner. Post tx, pt in recliner, call light in reach and all needs met. Education OT Patient Education: Correct positioning, Energy conservation, Exercise program, Modified ADL techniques, Progress toward Goal/Update tx plan, Purpose of tx/functional activities Teaching Recipient: Patient Teaching Methods: Discussion Response to Teaching: Verbalize Understanding OT Short Term Goals Short Term Goals Time Frame: January 17, 2022 Eatin Oral hygiene: 6 Toileting hygiene: 4 Shower/bathe self: 3 Upper body dressin Lower body dressin Putting on/taking off footwear: 3 OT Correction Goals Correction Goals Time Frame: January 24, 2022 Eating (QC): 6 Oral Hygiene (QC): 6 Toileting Hygiene (QC): 6 Shower/Bathe Self (QC): 5 Upper Body Dressing (QC): 6 Lower Body Dressing (QC): 5 On/Off Footwear (QC): 5 Additional Goals: 1-Demonstrate ADL Tasks, 2-Verbalize Understanding, 3- ImproveStrength/Saul 1=Demonstrate adherence to instructed precautions during ADL tasks. 2=Patient will verbalize/demonstrate understanding of assistive devices/modifications for ADL. 3=Patient will improve strength/tolerance for activity to enable patient to perform ADL's. OT Education/Plan Problem List/Assessment Assessment: Decreased Activ Tolerance, Decreased UE Strength, Impaired Funct Balance, Impaired I ADL's, Impaired Self-Care Skills Discharge Recommendations Plan/Recommendations: Continue POC Treatment Plan/Plan of Care Patient would benefit from OT for education, treatment and training to promote i ndependence in ADL's, mobility, safety and/or upper extremity function for ADL's. Plan of Care: ADL Retraining, Functional Mobility Treatment Duration: January 10, 2022 Frequency: Modified Program (IRF) Estimated Hrs Per Day: Other Agreement: Yes Rehab Potential: Good Time/GCodes Start Time: 07:45 Stop Time: 09:15 Total Time Billed (hr/min): 90 Billed Treatment Time 1, EX (10'), FA 5 (80') MINOR DAVENPORT OT January 14, 2022 08:17
[2022-01-14 09:55] VITALS: BP 92/62
[2022-01-14] MEDS: SACUBITRIL/VALSARTAN 24/26 MG (ENTRESTO) TABLET PO SCH ×2 (09:57→22:15)
--- NOTE | 2022-01-14 09:59 | Cardiology Progress Note ---
Progress Note-Cardiology Events since last exam Date Seen by Provider: January 14, 2022 Time Seen by Provider: 09:58 Events since last exam I am following him due to heart failure with reduced ejection fraction. He remains on our inpatient rehabilitation unit. His breathing seems to be improving daily. He has been participating in physical therapy. He denies chest discomfort, palpitations, or syncope. He has persistent lower extremity edema. Certain portions of this document may have been dictated utilizing voice recognition technology. Inherent to this technology, typographical and grammatical errors may exist. As much as I am diligent to identify and correct these mistakes, some errors may remain in the document. Vitals Last set of Vitals Signs Vital Signs 01/14/22 01/14/22 07:29 09:13 Temp 35.9 Pulse 90 Resp 18 B/P (MAP) 92/60 (71) Pulse Ox 98 O2 Delivery Room Air Exam Vital Signs Vital Signs Date Time Temp Pulse Resp B/P (MAP) Pulse Ox O2 Delivery O2 Flow Rate FiO2 01/14/22 09:13 98 Room Air 01/14/22 07:29 35.9 90 18 92/60 (71) Physical Exam General: Alert. No acute distress. Eye: No xanthelasma. HENT: Normocephalic. Neck: Jugular venous pressure does not appear elevated. Respiratory: Lungs are clear to auscultation but decreased at the bases bilaterally. Respirations are non-labored. Breath sounds are equal. Symmetrical chest wall expansion. Cardiovascular: Normal rate. Regular rhythm. 1/6 systolic ejection murmur. No gallop. 1+ bilateral pretibial edema, slightly worse on the left. Gastrointestinal: Soft. Normal bowel sounds. Skin: Warm. Dry. Neurologic: Alert and oriented to person, place, time. Cranial nerves 3-11 grossly intact. Psychiatric: Cooperative. Appropriate mood & affect. Diagnosis/Problems Diagnosis/Problems (1) Chronic HFrEF (heart failure with reduced ejection fraction) Assessment & Plan: This is a recent diagnosis in this patient. This is due to nonischemic cardiomyopathy. All of his guideline directed medications have been resumed. I have had to decrease his guideline directed medical therapy due to low blood pressures. We have now spaced out the medication due to hypotension. (2) Nonischemic cardiomyopathy Assessment & Plan: He has a recently diagnosed nonischemic cardiomyopathy of unknown known etiology. He did have COVID earlier in the year but it was 2 months before he developed his current symptoms so unclear whether or not this could have anything to do with the COVID infection. He underwent a cardiac catheterization at an outside facility that did not show any significant coronary artery disease. As above, his guideline directed medical therapy has all been resumed. He has a prophylactic defibrillator in place which was just implanted on 01/08. (3) Persistent atrial fibrillation Assessment & Plan: This was also a new diagnosis in the patient. He is on apixaban for stroke prophylaxis and amiodarone for rhythm management. At some point, we will need to consider whether or not to discontinue the amiodarone. (4) Orthostatic hypotension Assessment & Plan: He has been having some symptomatic low blood pressures most likely due to his medication for the cardiomyopathy and heart failure. I have reduced the dose of Entresto. As above, I have asked his nurse to stagger his medications to help avoid hypotension. (5) Pulmonary hypertension Assessment & Plan: His outside echocardiogram report stated there were elevated right-sided heart pressures. This was likely due to the acute heart failure. This will need to be followed longitudinally. (6) Nonrheumatic aortic valve stenosis with regurgitation Assessment & Plan: He appears to have at least moderate aortic stenosis by visual inspection on his echocardiogram done here on 01/13. He most likely has low gradients due to the severe cardiomyopathy. This condition will need to be followed longitudinally. (7) Primary hypertension Assessment & Plan: His blood pressures have been running somewhat on the low side. I have adjusted his medication as outlined above (8) Mixed hyperlipidemia Assessment & Plan: Continue simvastatin. (9) Type 2 diabetes mellitus with complication Assessment & Plan: This will be managed by the hospitalist. His Jardiance should be continued. There is good data that this medication is not only effective for diabetes but also helps reduce heart failure admissions. LAILA RAMOS JR, MD January 14, 2022 09:59
[2022-01-14] MEDS ORDERED: FLUTICASONE NASAL SPRAY (FLONASE) 16 GM BTL NS SCH (11:00)
[2022-01-14] MEDS: ACETAMINOPHEN 325 MG TABLET PO PRN ×2 (11:32→22:15)
--- NOTE | 2022-01-14 12:30 | Progress Note - Urology ---
Progress Note-Urology Progress Notes/Assess & Plan Progress/Assessment & Plan TOV TODAY AND MANAGE ACCORDINGLY CRIS MORILLO MD January 14, 2022 12:30
[2022-01-14] MEDS: EPLERONONE 25 MG PO SCH (12:36)
[2022-01-14 12:37] VITALS: BP 92/59
--- NOTE | 2022-01-14 13:36 | Physical Therapy Daily Note ---
PT Daily Note-Current Subjective Upon arrival, pt was seated in recliner. Pt states that he slept good. Pt states he has allergies and that his head and ears feel full. Pt agrees to PT. Pain Comment: Pt states that he has no pain. Mental Status Patient Orientation: Person, Place, Time, Situation Attachments: Hawkins Catheter Transfers SCALE: Activities may be completed with or without assistive devices. 8-Wbgigokvhl-qstprsa completes the activity by him/herself with no assistance from a helper. 5-Set-up or Clean-up Assistance-helper sets up or cleans up; patient completes activity. [place] assists only prior to or following the activity. 4-Supervision or Touching Assistance-helper provides verbal cues and/or touc kimmy/steadying and/or contact guard assistance as patient completes activity. Assistance may be provided throughout the activity or intermittently. 3-Partial/Moderate Assistance-helper does LESS THAN HALF the effort. [place] lifts, holds or supports trunk or limbs, but provides less than half the effort. 2-Substantial/Maximal Assistance-helper does MORE THAN HALF the effort. [place] lifts or holds trunk or limbs and provides more than half the effort. 6-Ostbvgvfb-qipfnk does ALL the effort. Patient does none of the effort to complete the activity. Or, the assistance of 2 or more helpers is required for the patient to complete the activity. If activity was not attempted, code reason: 7-Patient Refused. 9-Not Applicable-not attempted and the patient did not perform the activity before the current illness, exacerbation or injury. 10-Not Attempted due to Environmental Limitations-(lack of equipment, weather restraints, etc.). 88-Not Attempted due to Medical Conditions or Safety Concerns. Sit to Stand (QC): 4 Weight Bearing Right Lower Extremity: Right Full Weight Bearing Left Lower Extremity: Left Full Weight Bearing Gait Training Does the Patient Walk?: Yes Distance: 22', 20', 42', 64' Walk 10 feet (QC): 4 Walk 50 ft with 2 Turns(QC): 4 Gait Persons Needed: 1 Gait Assistive Device: FWW Pt walked with a slow, reciprocal GT pattern. Pt demonstrated no LOB. Pt had to have frequent rest breaks, during ambulation. Pt states that he has SOA. Wheelchair Training Does the Pt Use a Wheelchair?: No Exercises Seated Therapy Exercises: Ankle pumps, Long arc quads, Hip flexion, Hamstring Curls, Hip abd/add Seated Reps: 20 NuStep Minutes: 15 NuStep Workload: 1 Treatments Pt performed and completed all Exs listed above. Pt ambulated from room, around lobby and back to room. Pt precedes to work on the NuStep for 15min. Once PT was concluded, pt was seated in recliner, with call light and tray in reach and all needs met. Assessment Current Status: Good Progress Pt would benefit from continued PT to improve on GT, strength, and activity tolerance. PT Short Term Goals Short Term Goals Time Frame: January 16, 2022 Roll Left & Right: 4 Sit to lyin (CGA) Lying to sitting on side of be: 4 (CGA) Sit to stand: 3 Chair/cxn-bv-tblnv transfer: 3 Toilet transfer: 3 Car transfer: 3 Walk 10 feet: 4 (CGA) Walk 50 feet with two turns: 3 Walk 150 feet: 3 Walking 10ft on uneven surface: 3 1 step (curb): 4 PT Jail Goals Jail Goals PT Jail Goals Time Frame: January 30, 2022 Roll Left & Right (QC): 6 Sit to Lying (QC): 4 (SBA) Lying-Sitting on Side/Bed(QC): 4 (SBA) Sit to Stand (QC): 4 (CGA) Chair/Jxu-bv-Lsatb Xfer(QC): 4 (CGA) Toilet Transfer (QC): 4 (CGA) Car Transfer (QC): 4 (CGA) Does the Patient Walk: Yes Walk 10 feet (QC): 4 (SBA) Walk 50ft with 2 Turns (QC): 4 (CGA) Walk 150 ft (QC): 4 (CGA) Walking 10ft on Uneven Surface: 4 (CGA) 1 Step (curb) (QC): 4 (CGA) 4 Steps (QC): 88 12 Steps (QC): 88 Picking up an Object (QC): 4 (CGA with industrial spray painter) Does the Pt use WC or Scooter?: No Wheel 50 feet with 2 turns (QC: 9 Type: N/A Wheel 150 feet: 9 Type: N/A PT Plan Problem List Problem List: Activity Tolerance, Functional Strength, Gait Treatment/Plan Treatment Plan: Continue Plan of Care Treatment Plan: Bed Mobility, Education, Functional Activity Saul, Functional Strength, Group Therapy, Gait, Safety, Therapeutic Exercise, Transfers Treatment Duration: January 30, 2022 Frequency: At least 5 of 7 days/Wk (IRF) Estimated Hrs Per Day: 1.5 hours per day Patient and/or Family Agrees t: Yes Safety Risks/Education Patient Education: Gait Training, Correct Positioning Teaching Recipient: Patient Teaching Methods: Discussion Response to Teaching: Verbalize Understanding Time/GCodes Time In: 1000 Time Out: 1100 Total Billed Treatment Time: 60 Total Billed Treatment 1, Ex (40), GT (20) UMER GAN PREPRINT ANALYST January 14, 2022 13:36
--- NOTE | 2022-01-14 13:38 | Physical Therapy Daily Note ---
PT Daily Note-Current Subjective Upon arrival, Pt was seated in recliner. Pt agrees to PT. Pain Comment: Pt reports no pain. Mental Status Patient Orientation: Person, Place, Time, Situation Transfers SCALE: Activities may be completed with or without assistive devices. 5-Nsqacuejeu-sqhvmgg completes the activity by him/herself with no assistance from a helper. 5-Set-up or Clean-up Assistance-helper sets up or cleans up; patient completes activity. [place] assists only prior to or following the activity. 4-Supervision or Touching Assistance-helper provides verbal cues and/or touching/steadying and/or contact guard assistance as patient completes activity. Assistance may be provided throughout the activity or intermittently. 3-Partial/Moderate Assistance-helper does LESS THAN HALF the effort. [place] lifts, holds or supports trunk or limbs, but provides less than half the effort. 2-Substantial/Maximal Assistance-helper does MORE THAN HALF the effort. [place] lifts or holds trunk or limbs and provides more than half the effort. 2-Mbjzxbbwh-qbkyvf does ALL the effort. Patient does none of the effort to comp lete the activity. Or, the assistance of 2 or more helpers is required for the patient to complete the activity. If activity was not attempted, code reason: 7-Patient Refused. 9-Not Applicable-not attempted and the patient did not perform the activity before the current illness, exacerbation or injury. 10-Not Attempted due to Environmental Limitations-(lack of equipment, weather restraints, etc.). 88-Not Attempted due to Medical Conditions or Safety Concerns. Sit to Lying (QC): 4 Weight Bearing Right Lower Extremity: Right Full Weight Bearing Left Lower Extremity: Left Full Weight Bearing Gait Training Does the Patient Walk?: Yes Distance: 128' Walk 10 feet (QC): 4 Walk 50 ft with 2 Turns(QC): 4 Gait Persons Needed: 1 Gait Assistive Device: FWW Pt ambulated with a slow, reciprocal GT pattern. Pt demonstrated no LOB. Pt had to have frequent rest breaks, during ambulation. Pt states that he has SOA. Wheelchair Training Does the Pt Use a Wheelchair?: No Exercises Seated Therapy Exercises: Ankle pumps, Long arc quads (2 20x), Hip flexion (2 20x), Hamstring Curls, Hip abd/add Seated Reps: 20 Treatments Pt performed and completed all Exs listed above. Pt ambulated around lobby 2x, and walked back to room. As PT concluded, pt was seated in recliner, with call light and tray in reach and all needs met. Assessment Current Status: Good Progress Pt would benefit from continued PT, to improve on GT, activity tolerance and strength. PT Short Term Goals Short Term Goals Time Frame: January 16, 2022 Roll Left & Right: 4 Sit to lyin (CGA) Lying to sitting on side of be: 4 (CGA) Sit to stand: 3 Chair/xsp-km-numzo transfer: 3 Toilet transfer: 3 Car transfer: 3 Walk 10 feet: 4 (CGA) Walk 50 feet with two turns: 3 Walk 150 feet: 3 Walking 10ft on uneven surface: 3 1 step (curb): 4 PT [facility] Goals [facility] Goals PT Senior Systems Analyst Goals Time Frame: January 30, 2022 Roll Left & Right (QC): 6 Sit to Lying (QC): 4 (SBA) Lying-Sitting on Side/Bed(QC): 4 (SBA) Sit to Stand (QC): 4 (CGA) Chair/Rug-lk-Glpfb Xfer(QC): 4 (CGA) Toilet Transfer (QC): 4 (CGA) Car Transfer (QC): 4 (CGA) Does the Patient Walk: Yes Walk 10 feet (QC): 4 (SBA) Walk 50ft with 2 Turns (QC): 4 (CGA) Walk 150 ft (QC): 4 (CGA) Walking 10ft on Uneven Surface: 4 (CGA) 1 Step (curb) (QC): 4 (CGA) 4 Steps (QC): 88 12 Steps (QC): 88 Picking up an Object (QC): 4 (CGA with mask designer) Does the Pt use WC or Scooter?: No Wheel 50 feet with 2 turns (QC: 9 Type: N/A Wheel 150 feet: 9 Type: N/A PT Plan Problem List Problem List: Activity Tolerance, Functional Strength, Gait Treatment/Plan Treatment Plan: Continue Plan of Care Treatment Plan: Bed Mobility, Education, Functional Activity Saul, Functional Strength, Group Therapy, Gait, Safety, Therapeutic Exercise, Transfers Treatment Duration: January 30, 2022 Frequency: At least 5 of 7 days/Wk (IRF) Estimated Hrs Per Day: 1.5 hours per day Patient and/or Family Agrees t: Yes Time/GCodes Time In: 1300 Time Out: 1330 Total Billed Treatment Time: 30 Total Billed Treatment 1, FA (30) UMER GAN ENGINEER STATION MAINLINE January 14, 2022 13:38
[2022-01-14 20:00] VITALS: BP 91/61
[2022-01-14] MEDS: CYCLOBENZAPRINE 10 MG (FLEXERIL) TAB PO PRN (22:15)
[2022-01-15] MEDS: ONDANSETRON 4 MG (ZOFRAN) ORAL DISSOLVE TAB PO PRN ×2 (04:10→09:51)
--- NOTE | 2022-01-15 06:35 | PM&R Progress Note ---
Subjective HPI/CC On Admission Date Seen by Provider: January 15, 2022 Time Seen by Provider: 11:00 Subjective/Events-last exam 01/15/2022: Patient doing really well Voiding well since catheter discontinued Sodium level 126 so I educated him on fluid restriction Dr. Lovell will see you 2 pound weight gain every day Bowels are moving 01/14/22: Pt is doing pretty well Complaining of congestion Flonase will be added to the Claritin I ordered yesterday Bowels moved a few days ago, refusing laxatives Dr. Kramer managing the hypotension Dr. Hendricks had me order discontinuation of the catheter Diflucan maintained for yeast UTI 01/13/2022: Patient doing really well Urology will see him today No pain is reported Seems to be recovering well Hypotension limits giving most cardiac meds 01/12/2022: Dr. Hendricks will see him tomorrow Diflucan maintain for yeast UTI No pain is reported Improving ambulation No falls Blood pressure runs low 01/11/2022: Patient doing well We will consult urology tomorrow Yeast will be treated with Diflucan Awaiting final urine culture Checked meds and labs 01/10/2022: Patient doing well at bedside reviewing meds with nurse Changing out catheter tubing UA sent down will hold off on treatment until culture known Yeast noted so we will start Diflucan Review of Systems General: Fatigue, Malaise Pulmonary: Dyspnea Objective Exam Vital Signs Vital Signs Date Time Temp Pulse Resp B/P (MAP) Pulse Ox O2 Delivery O2 Flow Rate FiO2 01/15/22 20:30 Room Air 01/15/22 19:47 35.4 73 20 95/66 (76) 97 Capillary Refill : General Appearance: No Apparent Distress, WD/WN, Chronically ill, Obese HEENT: PERRL/EOMI, Normal ENT Inspection, Pharynx Normal Neck: Full Range of Motion, Normal Inspection, Non Tender, Supple, Carotid Bruit Respiratory: Chest Non Tender, Lungs Clear, No Accessory Muscle Use, No Respiratory Distress, Decreased Breath Sounds Cardiovascular: No Edema, No Gallop, No JVD, No Murmur, Normal Peripheral Pulses, Irregularly Irregular Gastrointestinal: Normal Bowel Sounds, No Organomegaly, No Pulsatile Mass, Non Tender, Soft Back: Normal Inspection, No CVA Tenderness, No Vertebral Tenderness Extremity: Normal Capillary Refill, Normal Inspection, Normal Range of Motion, Non Tender, No Calf Tenderness, No Pedal Edema Neurologic/Psychiatric: Alert, Oriented x3, No Motor/Sensory Deficits, Normal Mood/Affect Skin: Normal Color, Warm/Dry Lymphatic: No Adenopathy Results/Procedures Lab Laboratory Tests 01/15/22 07:13 Patient resulted labs reviewed. FIM Transfers Therapy Code Descriptions/Definitions Functional [place] Measure: 0=Not Assessed/NA 4=Minimal Assistance 1=Total Assistance 5=Supervision or Setup 2=Maximal Assistance 6=Modified [place] 3=Moderate Assistance 7=Complete IndependenceSCALE: Activities may be completed with or without assistive devices. 6-Astsklqzya-hgtzbqw completes the activity by him/herself with no assistance from a helper. 5-Set-up or Clean-up Assistance-helper sets up or cleans up; patient completes activity. [place] assists only prior to or following the activity. 4-Supervision or Touching Assistance-helper provides verbal cues and/or touching/steadying and/or contact guard assistance as patient completes activity. Assistance may be provided throughout the activity or intermittently. 3-Partial/Moderate Assistance-helper does LESS THAN HALF the effort. [place] lifts, holds or supports trunk or limbs, but provides less than half the effort. 2-Substantial/Maximal Assistance-helper does MORE THAN HALF the effort. [place] lifts or holds trunk or limbs and provides more than half the effort. 5-Tkkpxvcgr-tmbzgr does ALL the effort. Patient does none of the effort to compl ete the activity. Or, the assistance of 2 or more helpers is required for the patient to complete the activity. If activity was not attempted, code reason: 7-Patient Refused. 9-Not Applicable-not attempted and the patient did not perform the activity before the current illness, exacerbation or injury. 10-Not Attempted due to Environmental Limitations-(lack of equipment, weather restraints, etc.). 88-Not Attempted due to Medical Conditions or Safety Concerns. Roll Left to Right (QC): 3 Sit to Lying (QC): 4 Sit to Stand (QC): 4 Chair/Rpu-sv-Biohr Xfer(QC): 2 Car Transfer (QC): 2 Gait Training Does the Patient Walk?: Yes Distance: 128' Walk 10 feet (QC): 4 Walk 50 ft with 2 Turns(QC): 4 Walk 150 ft (QC): 88 Walking 10ft/uneven surface-QC: 88 Gait Persons Needed: 1 Gait Assistive Device: FWW Wheelchair Training Does the Pt Use a Wheelchair?: No Wheel 50 ft with 2 turns (QC): 1 Wheel 150 ft (QC): 1 Type of Wheelchair: N/A Stair Training 1 Step (curb) (QC): 88 4 Steps (QC): 88 12 Steps (QC): 88 Balance Picking up an Object (QC): 88 ADL-Treatment Eating (QC): 6 Oral Hygiene (QC): 6 Shower/Bathe Self (QC): 5 Upper Body Dressing (QC): 5 Lower Body Dressing (QC): 4 (SBA, education on AE for threading RLE) On/Off Footwear (QC): 2 (Max A doffing/donning gripper socks.) Toileting Hygiene (QC): 4 (SBA, pt able to manage clothing and wash buttocks in shower) Assessment/Plan Assessment and Plan Assess & Plan/Chief Complaint Assessment: Cardiac debility Nonischemic cardiomyopathy Persistent atrial fibrillation Previous COVID infection Hypoxia BPH Hypothyroidism Diabetes Prostate cancer history Elevated liver enzymes Insomnia Obesity History of acute kidney injury Hyponatremia Yeast UTI Urinary retention requiring Hawkins catheter for 2 weeks now discontinued on 01/14/2022 and voiding well Hyponatremia requiring fluid restriction on 01/15/2022 Plan: Rehab protocol Dr. Kramer consult Supportive care 01/10/22: Monitor closely UTI treatment 01/11/2022: Diflucan Await final urine culture 01/12/2022: Diflucan Urology tomorrow Monitor low blood pressure 01/13/2022: Appreciate urology Appreciate cardiology 01/14/2022: DC catheter Appreciate urology 01/15/2022: Supportive care Voiding well Fluid restriction (1) Chronic HFrEF (heart failure with reduced ejection fraction) Assessment & Plan: This is a recent diagnosis in this patient. This is due to nonischemic cardiomyopathy. All of his guideline directed medications have been resumed. I have had to decrease his guideline directed medical therapy due to low blood pressures. We have now spaced out the medication due to hypotension. (2) Nonischemic cardiomyopathy Assessment & Plan: He has a recently diagnosed nonischemic cardiomyopathy of unknown known etiology. He did have COVID earlier in the year but it was 2 mo nths before he developed his current symptoms so unclear whether or not this could have anything to do with the COVID infection. He underwent a cardiac catheterization at an outside facility that did not show any significant coronary artery disease. As above, his guideline directed medical therapy has all been resumed. He has a prophylactic defibrillator in place which was just implanted on 01/08. (3) Persistent atrial fibrillation Assessment & Plan: This was also a new diagnosis in the patient. He is on apixaban for stroke prophylaxis and amiodarone for rhythm management. At some point, we will need to consider whether or not to discontinue the amiodarone. (4) Orthostatic hypotension Assessment & Plan: He has been having some symptomatic low blood pressures most likely due to his medication for the cardiomyopathy and heart failure. I have reduced the dose of Entresto. As above, I have asked his nurse to stagger his medications to help avoid hypotension. (5) Pulmonary hypertension Assessment & Plan: His outside echocardiogram report stated there were elevated right-sided heart pressures. This was likely due to the acute heart failure. This will need to be followed longitudinally. (6) Nonrheumatic aortic valve stenosis with regurgitation Assessment & Plan: He appears to have at least moderate aortic stenosis by visual inspection on his echocardiogram done here on 01/13. He most likely has low gradients due to the severe cardiomyopathy. This condition will need to be followed longitudinally. (7) Primary hypertension Assessment & Plan: His blood pressures have been running somewhat on the low side. I have adjusted his medication as outlined above (8) Mixed hyperlipidemia Assessment & Plan: Continue simvastatin. (9) Type 2 diabetes mellitus with complication Assessment & Plan: This will be managed by the hospitalist. His Jardiance should be continued. There is good data that this medication is not only effective for diabetes but also helps reduce heart failure admissions. GUERRERO COLE DO January 15, 2022 06:35
[2022-01-15] MEDS: KCL 10 MEQ TAB (MICRO K) PO SCH (07:16)
[2022-01-15] MEDS: LEVOTHYROXINE 25 MCG (LEVOTHROID) TAB PO SCH (07:16)
[2022-01-15 07:22] VITALS: BP 92/60
[2022-01-15 07:34] LABS: BASOPHILS # (AUTO) 0.1 10^3/uL (0.0-0.1); BASOPHILS % (AUTO) 1 % (0-10); EOSINOPHILS # (AUTO) 0.1 10^3/uL (0.0-0.3); EOSINOPHILS % (AUTO) 2 % (0-10); HEMATOCRIT 37 % (40-54); HEMOGLOBIN 12.1 g/dL (13.3-17.7); LYMPHOCYTES # (AUTO) 1.9 10^3/uL (1.0-4.0); LYMPHOCYTES % (AUTO) 28 % (12-44); MEAN CORPUSCULAR HEMOGLOBIN 28 pg (25-34); MEAN CORPUSCULAR HGB CONC 32 g/dL (32-36); MEAN CORPUSCULAR VOLUME 85 fL (80-99); MEAN PLATELET VOLUME 10.7 fL (9.0-12.2); MONOCYTES # (AUTO) 0.5 10^3/uL (0.0-1.0); MONOCYTES % (AUTO) 7 % (0-12); NEUTROPHILS # (AUTO) 4.3 10^3/uL (1.8-7.8); NEUTROPHILS % (AUTO) 62 % (42-75); PLATELET COUNT 300 10^3/uL (130-400); WHITE BLOOD COUNT 6.9 10^3/uL (4.3-11.0)
[2022-01-15 07:36] LABS: ALBUMIN 3.4 GM/DL (3.2-4.5); POTASSIUM 4.3 MMOL/L (3.6-5.0)
[2022-01-15] MEDS: fluCOnazole (DIFLUCAN) 100 MG TAB PO SCH (07:36)
[2022-01-15 07:37] LABS: CALCIUM 9.3 MG/DL (8.5-10.1)
[2022-01-15] MEDS: SIMvastatin 10 MG (ZOCOR) TAB PO SCH (07:37)
[2022-01-15] MEDS: AMIODARONE 200 MG (CORDARONE) TAB PO SCH (07:37)
[2022-01-15] MEDS: ASPIRIN E.C. 81 MG (ECOTRIN) TAB PO SCH (07:37)
[2022-01-15] MEDS: TAMSULOSIN 0.4 MG (FLOMAX) CAP PO SCH (07:37)
[2022-01-15] MEDS: SACUBITRIL/VALSARTAN 24/26 MG (ENTRESTO) TABLET PO SCH ×2 (07:37→20:19)
[2022-01-15] MEDS: EMPAGLIFLOZIN 10 MG TABLET (JARDIANCE) PO SCH (07:38)
[2022-01-15] MEDS: FUROSEMIDE 40 MG (LASIX) TAB PO SCH (07:38)
[2022-01-15] MEDS: APIXABAN 5 MG (ELIQUIS) TABLET PO SCH ×2 (07:38→20:19)
[2022-01-15 07:39] LABS: TOTAL PROTEIN 6.3 GM/DL (6.4-8.2)
[2022-01-15] MEDS: LORATADINE (CLARITIN) 10 MG TAB PO SCH (07:39)
[2022-01-15] MEDS: FLUTICASONE NASAL SPRAY (FLONASE) 16 GM BTL NS SCH (07:39)
[2022-01-15 07:41] LABS: BILIRUBIN,TOTAL 1.1 MG/DL (0.1-1.0)
[2022-01-15 07:42] LABS: CREATININE SERUM 1.36 MG/DL (0.60-1.30)
[2022-01-15] MEDS: SENNA W/DOCUSATE (SENOKOT S) TABLET PO SCH ×2 (08:50→20:19)
[2022-01-15] MEDS: polyethylene glycoL POWDER 17 GM (MIRALAX) PACK PO SCH ×2 (08:50→20:20)
[2022-01-15] MEDS: DOCUSATE SODIUM 100 MG (COLACE) CAP PO SCH ×2 (08:50→20:20)
--- NOTE | 2022-01-15 08:52 | Occupational Ther Daily Note ---
OT Current Status-Daily Note Subjective Pt up in recliner, agreeable to OT Tx. Pt reports he did not sleep well last night. Mental Status/Objective Patient Orientation: Normal For Age ADL-Treatment Therapy Code Descriptions/Definitions Functional [place] Measure: 0=Not Assessed/NA 4=Minimal Assistance 1=Total Assistance 5=Supervision or Setup 2=Maximal Assistance 6=Modified [place] 3=Moderate Assistance 7=Complete IndependenceSCALE: Activities may be completed with or without assistive devices. 3-Umzrlbisrw-rwpepsf completes the activity by him/herself with no assistance f rom a helper. 5-Set-up or Clean-up Assistance-helper sets up or cleans up; patient completes activity. [place] assists only prior to or following the activity. 4-Supervision or Touching Assistance-helper provides verbal cues and/or touching/steadying and/or contact guard assistance as patient completes activity. Assistance may be provided throughout the activity or intermittently. 3-Partial/Moderate Assistance-helper does LESS THAN HALF the effort. [place] lifts, holds or supports trunk or limbs, but provides less than half the effort. 2-Substantial/Maximal Assistance-helper does MORE THAN HALF the effort. [place] lifts or holds trunk or limbs and provides more than half the effort. 4-Wlkbdgxgv-hgltij does ALL the effort. Patient does none of the effort to complete the activity. Or, the assistance of 2 or more helpers is required for the patient to complete the activity. If activity was not attempted, code reason: 7-Patient Refused. 9-Not Applicable-not attempted and the patient did not perform the activity before the current illness, exacerbation or injury. 10-Not Attempted due to Environmental Limitations-(lack of equipment, weather restraints, etc.). 88-Not Attempted due to Medical Conditions or Safety Concerns. Eating (QC): 6 (IND per pt report.) Oral Hygiene (QC): 6 (IND seated at sink) Shower/Bathe Self (QC): 5 (set up at SC) Upper Body Dressing (QC): 5 (set up) Lower Body Dressing (QC): 4 (SBA, cue to use AE for threading RLE. ) On/Off Footwear: 2 (Pt able to doff gripper socks using rn gastroenterology. assist required to don compression socks and gripper socks.) Other Treatment Pt up in recliner, agreeable to OT Tx with focus on ADLs. Pt used FWW in his room, CGA for sit to stand transfers & SBA once up at FWW. He completed showering, dressing, and grooming tasks. Post tx, pt in recliner, call light in reach and all needs met. Education OT Patient Education: Correct positioning, Energy conservation, Modified ADL techniques, Progress toward Goal/Update tx plan, Purpose of tx/functional activities Teaching Recipient: Patient Teaching Methods: Discussion Response to Teaching: Unable to Return Demonstration OT Short Term Goals Short Term Goals Time Frame: January 17, 2022 Eatin Oral hygiene: 6 Toileting hygiene: 4 Shower/bathe self: 3 Upper body dressin Lower body dressin Putting on/taking off footwear: 3 OT Electrical Construction Project Manager Goals Electrical Construction Project Manager Goals Time Frame: January 24, 2022 Eating (QC): 6 Oral Hygiene (QC): 6 Toileting Hygiene (QC): 6 Shower/Bathe Self (QC): 5 Upper Body Dressing (QC): 6 Lower Body Dressing (QC): 5 On/Off Footwear (QC): 5 Additional Goals: 1-Demonstrate ADL Tasks, 2-Verbalize Understanding, 3- ImproveStrength/Saul 1=Demonstrate adherence to instructed precautions during ADL tasks. 2=Patient will verbalize/demonstrate understanding of assistive devices/modifications for ADL. 3=Patient will improve strength/tolerance for activity to enable patient to perform ADL's. OT Education/Plan Problem List/Assessment Assessment: Decreased Activ Tolerance, Decreased UE Strength, Impaired Funct Balance, Impaired I ADL's, Impaired Self-Care Skills Discharge Recommendations Plan/Recommendations: Continue POC Treatment Plan/Plan of Care Patient would benefit from OT for education, treatment and training to promote independence in ADL's, mobility, safety and/or upper extremity function for ADL's. Plan of Care: ADL Retraining, Functional Mobility Treatment Duration: January 10, 2022 Frequency: Modified Program (IRF) Estimated Hrs Per Day: Other Agreement: Yes Rehab Potential: Good Time/GCodes Start Time: 08:00 Stop Time: 09:00 Total Time Billed (hr/min): 60 Billed Treatment Time 1, ADL 4 MINOR DAVENPORT OT January 15, 2022 08:52
--- NOTE | 2022-01-15 09:14 | Progress Note - Urology ---
Progress Note-Urology Progress Notes/Assess & Plan Progress/Assessment & Plan VOIDING ON OWN. NO COMPLAINTS. EMPTIES Final Diagnosis RETENTION CRIS MORILLO MD January 15, 2022 09:14
--- NOTE | 2022-01-15 09:36 | Cardiology Progress Note ---
Progress Note-Cardiology Events since last exam Date Seen by Provider: January 15, 2022 Time Seen by Provider: 09:35 Events since last exam I am following him due to heart failure. He continues to work with physical therapy on the inpatient rehabilitation unit. His lower extremity edema persists. His breathing is about the same. He denies chest discomfort, palpitations, or syncope. Certain portions of this document may have been dictated utilizing voice recognition technology. Inherent to this technology, typographical and grammatical errors may exist. As much as I am diligent to identify and correct these mistakes, some errors may remain in the document. Vitals Last set of Vitals Signs Vital Signs 01/15/22 01/15/22 07:22 14:30 Temp 36.1 Pulse 89 Resp 18 B/P (MAP) 92/60 (71) Pulse Ox 97 O2 Delivery Room Air Labs Labs Laboratory Tests 01/15/22 07:13 Exam Vital Signs Vital Signs Date Time Temp Pulse Resp B/P (MAP) Pulse Ox O2 Delivery O2 Flow Rate FiO2 01/15/22 14:30 Room Air 01/15/22 07:22 36.1 89 18 92/60 (71) 97 Physical Exam General: Alert. No acute distress. Eye: No xanthelasma. HENT: Normocephalic. Neck: Jugular venous pressure does not appear elevated. Respiratory: Lungs are clear to auscultation. Respirations are non-labored. Breath sounds are equal. Symmetrical chest wall expansion. Cardiovascular: Normal rate. Regular rhythm. 1/6 systolic ejection murmur. No gallop. 1+ bilateral pretibial edema, slightly worse on the left. Gastrointestinal: Soft. Normal bowel sounds. Skin: Warm. Dry. Neurologic: Alert and oriented to person, place, time. Cranial nerves 3-11 grossly intact. Psychiatric: Cooperative. Appropriate mood & affect. Labs Laboratory Tests Test 01/15/22 07:13 Range/Units White Blood Count 6.9 4.3-11.0 10^3/uL Red Blood Count 4.39 4.30-5.52 10^6/uL Hemoglobin 12.1 L 13.3-17.7 g/dL Hematocrit 37 L 40-54 % Mean Corpuscular Volume 85 80-99 fL Mean Corpuscular Hemoglobin 28 25-34 pg Mean Corpuscular Hemoglobin Concent 32 32-36 g/dL Red Cell Distribution Width 17.7 H 10.0-14.5 % Platelet Count 300 130-400 10^3/uL Mean Platelet Volume 10.7 9.0-12.2 fL Immature Granulocyte % (Auto) 1 % Neutrophils (%) (Auto) 62 42-75 % Lymphocytes (%) (Auto) 28 12-44 % Monocytes (%) (Auto) 7 0-12 % Eosinophils (%) (Auto) 2 0-10 % Basophils (%) (Auto) 1 0-10 % Neutrophils # (Auto) 4.3 1.8-7.8 10^3/uL Lymphocytes # (Auto) 1.9 1.0-4.0 10^3/uL Monocytes # (Auto) 0.5 0.0-1.0 10^3/uL Eosinophils # (Auto) 0.1 0.0-0.3 10^3/uL Basophils # (Auto) 0.1 0.0-0.1 10^3/uL Immature Granulocyte # (Auto) 0.0 0.0-0.1 10^3/uL Sodium Level 126 L 135-145 MMOL/L Potassium Level 4.3 3.6-5.0 MMOL/L Chloride Level 90 L 98-107 MMOL/L Carbon Dioxide Level 21 21-32 MMOL/L Anion Gap 15 H 5-14 MMOL/L Blood Urea Nitrogen 20 H 7-18 MG/DL Creatinine 1.36 H 0.60-1.30 MG/DL Estimat Glomerular Filtration Rate 55 BUN/Creatinine Ratio 15 Glucose Level 123 H 70-105 MG/DL Calcium Level 9.3 8.5-10.1 MG/DL Corrected Calcium 9.8 8.5-10.1 MG/DL Total Bilirubin 1.1 H 0.1-1.0 MG/DL Aspartate Amino Transf (AST/SGOT) 17 5-34 U/L Alanine Aminotransferase (ALT/SGPT) 15 0-55 U/L Alkaline Phosphatase 101 40-136 U/L Total Protein 6.3 L 6.4-8.2 GM/DL Albumin 3.4 3.2-4.5 GM/DL Diagnosis/Problems Diagnosis/Problems (1) Chronic HFrEF (heart failure with reduced ejection fraction) Assessment & Plan: This is a recent diagnosis in this patient. This is due to nonischemic cardiomyopathy. All of his guideline directed medications have been resumed. I have had to decrease his guideline directed medical therapy due to low blood pressures. We have now spaced out the medication due to hypotension. (2) Nonischemic cardiomyopathy Assessment & Plan: He has a recently diagnosed nonischemic cardiomyopathy of unknown known etiology. He did have COVID earlier in the year but it was 2 months before he developed his current symptoms so unclear whether or not this could have anything to do with the COVID infection. He underwent a cardiac catheterization at an outside facility that did not show any significant coronary artery disease. As above, his guideline directed medical therapy has all been resumed. He has a prophylactic defibrillator in place which was just implanted on 01/08. (3) Persistent atrial fibrillation Assessment & Plan: This was also a new diagnosis in the patient. He is on apixaban for stroke prophylaxis and amiodarone for rhythm management. At some point, we will need to consider whether or not to discontinue the amiodarone. (4) Orthostatic hypotension Assessment & Plan: He has been having some symptomatic low blood pressures most likely due to his medication for the cardiomyopathy and heart failure. I have adjusted his medication and the symptomatic hypotension seems to have improved. As above, I have asked his nurse to stagger his medications to help avoid hypotension. (5) Pulmonary hypertension Assessment & Plan: This is likely due to the acute heart failure. This will need to be followed longitudinally. (6) Nonrheumatic aortic valve stenosis with regurgitation Assessment & Plan: He appears to have at least moderate aortic stenosis by visual inspection on his echocardiogram done here on 01/13. He most likely has low gradients due to the severe cardiomyopathy. This condition will need to be followed longitudinally. (7) Primary hypertension Assessment & Plan: His blood pressures have been running somewhat on the low side. I have adjusted his medication as outlined above (8) Mixed hyperlipidemia Assessment & Plan: Continue simvastatin. (9) Type 2 diabetes mellitus with complication Assessment & Plan: This will be managed by the hospitalist. His Jardiance should be continued. There is good data that this medication is not only ef fective for diabetes but also helps reduce heart failure admissions. LAILA RAMOS JR, MD January 15, 2022 09:36
[2022-01-15] MEDS: ACETAMINOPHEN 325 MG TABLET PO PRN ×2 (09:51→21:31)
[2022-01-15] MEDS: EPLERONONE 25 MG PO SCH (11:16)
--- NOTE | 2022-01-15 13:37 | Occupational Ther Daily Note ---
OT Current Status-Daily Note Subjective Pt in therapy gym post PT tx, agreeable to OT Tx. Pt states he doesn't feel well this afternoon, but agreeable to tx. Mental Status/Objective Patient Orientation: Normal For Age ADL-Treatment Therapy Code Descriptions/Definitions Functional [place] Measure: 0=Not Assessed/NA 4=Minimal Assistance 1=Total Assistance 5=Supervision or Setup 2=Maximal Assistance 6=Modified [place] 3=Moderate Assistance 7=Complete IndependenceSCALE: Activities may be completed with or without assistive devices. 3-Psqanntdts-lhbkhbs completes the activity by him/herself with no assistance from a helper. 5-Set-up or Clean-up Assistance-helper sets up or cleans up; patient completes a ctivity. [place] assists only prior to or following the activity. 4-Supervision or Touching Assistance-helper provides verbal cues and/or touching/steadying and/or contact guard assistance as patient completes activity. Assistance may be provided throughout the activity or intermittently. 3-Partial/Moderate Assistance-helper does LESS THAN HALF the effort. [place] lifts, holds or supports trunk or limbs, but provides less than half the effort. 2-Substantial/Maximal Assistance-helper does MORE THAN HALF the effort. [place] lifts or holds trunk or limbs and provides more than half the effort. 8-Pewwujhqo-pwwkrs does ALL the effort. Patient does none of the effort to complete the activity. Or, the assistance of 2 or more helpers is required for the patient to complete the activity. If activity was not attempted, code reason: 7-Patient Refused. 9-Not Applicable-not attempted and the patient did not perform the activity before the current illness, exacerbation or injury. 10-Not Attempted due to Environmental Limitations-(lack of equipment, weather restraints, etc.). 88-Not Attempted due to Medical Conditions or Safety Concerns. Other Treatment Pt in therapy gym, agreeable to OT Tx. OT tx focused on increasing BUE strength and activity tolerance. Pt completed arm bike, x15 mins, minimal resistance with rest breaks as needed. Pt maintained LUE precautions throughout task. Pt used FWW to return to his room, transferring to bed (assistance with LLE due to fatigue). Post tx, pt in bed, call light in reach and all needs met. Education OT Patient Education: Correct positioning, Energy conservation, Modified ADL techniques, Progress toward Goal/Update tx plan, Purpose of tx/functional activities, Rehab process Teaching Recipient: Patient Teaching Methods: Discussion Response to Teaching: Verbalize Understanding OT Short Term Goals Short Term Goals Time Frame: January 17, 2022 Eatin Oral hygiene: 6 Toileting hygiene: 4 Shower/bathe self: 3 Upper body dressin Lower body dressin Putting on/taking off footwear: 3 OT Physician/Ophthalmologist Goals Physician/Ophthalmologist Goals Time Frame: January 24, 2022 Eating (QC): 6 Oral Hygiene (QC): 6 Toileting Hygiene (QC): 6 Shower/Bathe Self (QC): 5 Upper Body Dressing (QC): 6 Lower Body Dressing (QC): 5 On/Off Footwear (QC): 5 Additional Goals: 1-Demonstrate ADL Tasks, 2-Verbalize Understanding, 3- ImproveStrength/Saul 1=Demonstrate adherence to instructed precautions during ADL tasks. 2=Patient will verbalize/demonstrate understanding of assistive devices/modifications for ADL. 3=Patient will improve strength/tolerance for activity to enable patient to perform ADL's. OT Education/Plan Problem List/Assessment Assessment: Decreased Activ Tolerance, Decreased UE Strength, Impaired Funct Balance, Impaired I ADL's, Impaired Self-Care Skills Discharge Recommendations Plan/Recommendations: Continue POC Treatment Plan/Plan of Care Patient would benefit from OT for education, treatment and training to promote independence in ADL's, mobility, safety and/or upper extremity function for ADL's. Plan of Care: ADL Retraining, Functional Mobility Treatment Duration: January 10, 2022 Frequency: Modified Program (IRF) Estimated Hrs Per Day: Other Agreement: Yes Rehab Potential: Good Time/GCodes Start Time: 13:30 Stop Time: 14:00 Total Time Billed (hr/min): 30 Billed Treatment Time 1, EX 2 MINOR DAVENPORT OT January 15, 2022 13:37
--- NOTE | 2022-01-15 14:30 | Physical Therapy Daily Note ---
PT Daily Note-Current Subjective Patient was i chair upon entering and compliant to treatment. Patient reports being very fatigue as he did not sleep well last night. Still complains of a congestive headache and earache. Patients catheter has been removed since previous session. Pain Comment: no numerical value given Appearance Swelling of B feet. Mental Status Patient Orientation: Person, Place, Situation Transfers SCALE: Activities may be completed with or without assistive devices. 7-Nqgqcyaeuw-awojsjk completes the activity by him/herself with no assistance from a helper. 5-Set-up or Clean-up Assistance-helper sets up or cleans up; patient completes activity. [place] assists only prior to or following the activity. 4-Supervision or Touching Assistance-helper provides verbal cues and/or touching/steadying and/or contact guard assistance as patient completes activity. Assistance may be provided throughout the activity or intermittently. 3-Partial/Moderate Assistance-helper does LESS THAN HALF the effort. [place] lifts, holds or supports trunk or limbs, but provides less than half the effort. 2-Substantial/Maximal Assistance-helper does MORE THAN HALF the effort. [place] lifts or holds trunk or limbs and provides more than half the effort. 4-Nxbpeumwc-riwcgt does ALL the effort. Patient does none of the effort to complete the activity. Or, the assistance of 2 or more helpers is required for the patient to complete the activity. If activity was not attempted, code reason: 7-Patient Refused. 9-Not Applicable-not attempted and the patient did not perform the activity before the current illness, exacerbation or injury. 10-Not Attempted due to Environmental Limitations-(lack of equipment, weather restraints, etc.). 88-Not Attempted due to Medical Conditions or Safety Concerns. Sit to Stand (QC): 3 Chair/Imy-hz-Vihax Xfer(QC): 3 Weight Bearing Right Lower Extremity: Right Full Weight Bearing Left Lower Extremity: Left Full Weight Bearing Gait Training Does the Patient Walk?: Yes Distance: 60'x2 Walk 10 feet (QC): 4 Walk 50 ft with 2 Turns(QC): 4 Gait Assistive Device: FWW Slow gait speed, feet started to drag, heavy weight bearing through arms. Wheelchair Training Does the Pt Use a Wheelchair?: No Exercises Seated Therapy Exercises: Ankle pumps, Long arc quads, Hamstring Curls (red band at ankle.), Hip abd/add (Using red band and red ball between legs.) Seated Reps: 40 Standing: Heel/toe raises, Mini squats, Step-ups (4inch block.) Standing Reps: 10 NuStep Minutes: 15 NuStep Workload: 4 Treatments LE strengthening and endurance, transfers, ambulation Assessment Current Status: Fair Progress Patient needed long and frequent rest breaks throughout session, and after only doing minimal amounts of exercise. Attempted to do supine exercises, but patient did not tolerate position well. Patient needs [place] for sit to stand transfers. At end of session, patients foot started to leave a trail of blood. Foot was inspected and there appeared to be a skin tear that was bleeding, under the great left toe. Nursing was notified and applied a bandage to area. Patient did not report any pain in area, and did not notice the cut. He was left in chair with call light, tray, and all needs met. PT Short Term Goals Short Term Goals Time Frame: January 16, 2022 Roll Left & Right: 4 Sit to lyin (CGA) Lying to sitting on side of be: 4 (CGA) Sit to stand: 3 Chair/ptw-ij-ctjzj transfer: 3 Toilet transfer: 3 Car transfer: 3 Walk 10 feet: 4 (CGA) Walk 50 feet with two turns: 3 Walk 150 feet: 3 Walking 10ft on uneven surface: 3 1 step (curb): 4 PT Assisted Goals Assisted Goals PT Assisted Goals Time Frame: January 30, 2022 Roll Left & Right (QC): 6 Sit to Lying (QC): 4 (SBA) Lying-Sitting on Side/Bed(QC): 4 (SBA) Sit to Stand (QC): 4 (CGA) Chair/Twv-nt-Mwige Xfer(QC): 4 (CGA) Toilet Transfer (QC): 4 (CGA) Car Transfer (QC): 4 (CGA) Does the Patient Walk: Yes Walk 10 feet (QC): 4 (SBA) Walk 50ft with 2 Turns (QC): 4 (CGA) Walk 150 ft (QC): 4 (CGA) Walking 10ft on Uneven Surface: 4 (CGA) 1 Step (curb) (QC): 4 (CGA) 4 Steps (QC): 88 12 Steps (QC): 88 Picking up an Object (QC): 4 (CGA with front end web developer) Does the Pt use WC or Scooter?: No Wheel 50 feet with 2 turns (QC: 9 Type: N/A Wheel 150 feet: 9 Type: N/A PT Plan Problem List Problem List: Activity Tolerance, Functional Strength, Safety, Balance, Gait, Transfer, Bed Mobility, ROM Treatment/Plan Treatment Plan: Continue Plan of Care Treatment Plan: Bed Mobility, Education, Functional Activity Saul, Functional Strength, Group Therapy, Gait, Safety, Therapeutic Exercise, Transfers Treatment Duration: January 30, 2022 Frequency: At least 5 of 7 days/Wk (IRF) Estimated Hrs Per Day: 1.5 hours per day Patient and/or Family Agrees t: Yes Safety Risks/Education Patient Education: Gait Training, Transfer Techniques, Reviewed Precautions, Correct Positioning, Safety Issues Teaching Recipient: Patient Teaching Methods: Demonstration, Discussion Response to Teaching: Verbalize Understanding, Return Demonstration Time/GCodes Time In: 1100 Time Out: 1200 Total Billed Treatment Time: 60 Total Billed Treatment 1 visit FA 15min EX 45min SOLO MULLER PT January 15, 2022 14:30
--- NOTE | 2022-01-15 14:38 | Physical Therapy Daily Note ---
PT Daily Note-Current Subjective Patient was in chair upon entering, and agreeable to PT. Stated foot was doing well. Patient still complains of fatigue. Pain Location: No Pain Reported Mental Status Patient Orientation: Person, Place, Situation Transfers SCALE: Activities may be completed with or without assistive devices. 0-Whivgivnma-zkguwwq completes the activity by him/herself with no assistance from a helper. 5-Set-up or Clean-up Assistance-helper sets up or cleans up; patient completes activity. [place] assists only prior to or following the activity. 4-Supervision or Touching Assistance-helper provides verbal cues and/or touching/steadying and/or contact guard assistance as patient completes activity. Assistance may be provided throughout the activity or intermittently. 3-Partial/Moderate Assistance-helper does LESS THAN HALF the effort. [place] lifts, holds or supports trunk or limbs, but provides less than half the effort. 2-Substantial/Maximal Assistance-helper does MORE THAN HALF the effort. [place] lifts or holds trunk or limbs and provides more than half the effort. 2-Zhrqqvnyx-iesyya does ALL the effort. Patient does none of the effort to complete the activity. Or, the assistance of 2 or more helpers is required for the patient to complete the activity. If activity was not attempted, code reason: 7-Patient Refused. 9-Not Applicable-not attempted and the patient did not perform the activity before the current illness, exacerbation or injury. 10-Not Attempted due to Environmental Limitations-(lack of equipment, weather restraints, etc.). 88-Not Attempted due to Medical Conditions or Safety Concerns. Sit to Stand (QC): 4 Chair/Dvh-go-Fnqpm Xfer(QC): 4 Weight Bearing Right Lower Extremity: Right Full Weight Bearing Left Lower Extremity: Left Full Weight Bearing Gait Training Does the Patient Walk?: Yes Distance: 60', 40'x2 Walk 10 feet (QC): 4 Walk 50 ft with 2 Turns(QC): 4 Gait Assistive Device: FWW Hunched posture, heavy weight through arms, slow gait speed. normal reciprical pattern, decreased step length Exercises Seated Therapy Exercises: Ankle pumps, Long arc quads, Hip flexion, Hamstring Curls (red band), Hip abd/add (Red band, and red ball at knee) Seated Reps: 20 Standing: Sit to Stand (elevated height ) Standing Reps: 18 Treatments LE strengthening, ambulation, transfers. Assessment Current Status: Fair Progress Patient still reports lots of fatigue with activity, and needed long frequent rest breaks even after minimal activity. Demonstrates poor weakness with sit to stands, only able to complete 6 reps with an elevated seat height. Patient was left in gym for OT to take over. PT Short Term Goals Short Term Goals Time Frame: January 16, 2022 Roll Left & Right: 4 Sit to lyin (CGA) Lying to sitting on side of be: 4 (CGA) Sit to stand: 3 Chair/viz-us-ysjst transfer: 3 Toilet transfer: 3 Car transfer: 3 Walk 10 feet: 4 (CGA) Walk 50 feet with two turns: 3 Walk 150 feet: 3 Walking 10ft on uneven surface: 3 1 step (curb): 4 PT Asphalt Worker Goals Longterm Goals PT Asphalt Worker Goals Time Frame: January 30, 2022 Roll Left & Right (QC): 6 Sit to Lying (QC): 4 (SBA) Lying-Sitting on Side/Bed(QC): 4 (SBA) Sit to Stand (QC): 4 (CGA) Chair/Ula-fn-Sxpts Xfer(QC): 4 (CGA) Toilet Transfer (QC): 4 (CGA) Car Transfer (QC): 4 (CGA) Does the Patient Walk: Yes Walk 10 feet (QC): 4 (SBA) Walk 50ft with 2 Turns (QC): 4 (CGA) Walk 150 ft (QC): 4 (CGA) Walking 10ft on Uneven Surface: 4 (CGA) 1 Step (curb) (QC): 4 (CGA) 4 Steps (QC): 88 12 Steps (QC): 88 Picking up an Object (QC): 4 (CGA with senior contract specialist) Does the Pt use WC or Scooter?: No Wheel 50 feet with 2 turns (QC: 9 Type: N/A Wheel 150 feet: 9 Type: N/A PT Plan Problem List Problem List: Activity Tolerance, Functional Strength, Safety, Balance, Gait, Transfer, Bed Mobility, ROM Treatment/Plan Treatment Plan: Continue Plan of Care Treatment Plan: Bed Mobility, Education, Functional Activity Saul, Functional Strength, Group Therapy, Gait, Safety, Therapeutic Exercise, Transfers Treatment Duration: January 30, 2022 Frequency: At least 5 of 7 days/Wk (IRF) Estimated Hrs Per Day: 1.5 hours per day Patient and/or Family Agrees t: Yes Safety Risks/Education Patient Education: Gait Training, Transfer Techniques, Reviewed Precautions, Correct Positioning, Safety Issues Teaching Recipient: Patient Teaching Methods: Demonstration, Discussion Response to Teaching: Verbalize Understanding, Return Demonstration Time/GCodes Time In: 1300 Time Out: 1330 Total Billed Treatment Time: 30 Total Billed Treatment 1 visit FA 15min EX 15min SOLO MULLER PT January 15, 2022 14:38
[2022-01-15 19:47] VITALS: BP 95/66
[2022-01-15] MEDS: CYCLOBENZAPRINE 10 MG (FLEXERIL) TAB PO PRN (21:31)
[2022-01-15] MEDS: ZOLPIDEM 5 MG (AMBIEN) TAB PO PRN (21:31)
--- NOTE | 2022-01-16 05:56 | PM&R Progress Note ---
Subjective HPI/CC On Admission Date Seen by Provider: January 16, 2022 Time Seen by Provider: 10:00 Subjective/Events-last exam 01/16/2022: Dr. Lovell will see him for toenails Fluid restriction will continue, sodium level 123 Increased weight gain from water Lungs remain clear Voiding well 01/15/2022: Patient doing really well Voiding well since catheter discontinued Sodium level 126 so I educated him on fluid restriction Dr. Lovell will see you 2 pound weight gain every day Bowels are moving 01/14/22: Pt is doing pretty well Complaining of congestion Flonase will be added to the Claritin I ordered yesterday Bowels moved a few days ago, refusing laxatives Dr. Kramer managing the hypotension Dr. Hendricks had me order discontinuation of the catheter Diflucan maintained for yeast UTI 01/13/2022: Patient doing really well Urology will see him today No pain is reported Seems to be recovering well Hypotension limits giving most cardiac meds 01/12/2022: Dr. Hendricks will see him tomorrow Diflucan maintain for yeast UTI No pain is reported Improving ambulation No falls Blood pressure runs low 01/11/2022: Patient doing well We will consult urology tomorrow Yeast will be treated with Diflucan Awaiting final urine culture Checked meds and labs 01/10/2022: Patient doing well at bedside reviewing meds with nurse Changing out catheter tubing UA sent down will hold off on treatment until culture known Yeast noted so we will start Diflucan Review of Systems General: Fatigue, Malaise Objective Exam Vital Signs Vital Signs Date Time Temp Pulse Resp B/P (MAP) Pulse Ox O2 Delivery O2 Flow Rate FiO2 01/16/22 12:55 88 20 89/61 (70) 01/16/22 08:47 Room Air 01/16/22 07:58 36.2 100 Capillary Refill : General Appearance: No Apparent Distress, WD/WN, Chronically ill, Obese HEENT: PERRL/EOMI, Normal ENT Inspection, Pharynx Normal Neck: Full Range of Motion, Normal Inspection, Non Tender, Supple, Carotid Bruit Respiratory: Chest Non Tender, Lungs Clear, No Accessory Muscle Use, No Respiratory Distress, Decreased Breath Sounds Cardiovascular: No Edema, No Gallop, No JVD, No Murmur, Normal Peripheral Pulses, Irregularly Irregular Gastrointestinal: Normal Bowel Sounds, No Organomegaly, No Pulsatile Mass, Non Tender, Soft Back: Normal Inspection, No CVA Tenderness, No Vertebral Tenderness Extremity: Normal Capillary Refill, Normal Inspection, Normal Range of Motion, Non Tender, No Calf Tenderness, No Pedal Edema Neurologic/Psychiatric: Alert, Oriented x3, No Motor/Sensory Deficits, Normal Mood/Affect Skin: Normal Color, Warm/Dry Lymphatic: No Adenopathy Results/Procedures Lab Laboratory Tests 01/16/22 05:00 Patient resulted labs reviewed. FIM Transfers Therapy Code Descriptions/Definitions Functional [place] Measure: 0=Not Assessed/NA 4=Minimal Assistance 1=Total Assistance 5=Supervision or Setup 2=Maximal Assistance 6=Modified [place] 3=Moderate Assistance 7=Complete IndependenceSCALE: Activities may be completed with or without assistive devices. 8-Zkrtjxaico-jqgeyak completes the activity by him/herself with no assistance from a helper. 5-Set-up or Clean-up Assistance-helper sets up or cleans up; patient completes activity. [place] assists only prior to or following the activity. 4-Supervision or Touching Assistance-helper provides verbal cues and/or touching/steadying and/or contact guard assistance as patient completes activity. Assistance may be provided throughout the activity or intermittently. 3-Partial/Moderate Assistance-helper does LESS THAN HALF the effort. [place] lifts, holds or supports trunk or limbs, but provides less than half the effort. 2-Substantial/Maximal Assistance-helper does MORE THAN HALF the effort. [place] lifts or holds trunk or limbs and provides more than half the effort. 2-Tsjdufezk-hpabwd does ALL the effort. Patient does none of the effort to complete the activity. Or, the assistance of 2 or more helpers is required for the patient to complete the activity. If activity was not attempted, code reason: 7-Patient Refused. 9-Not Applicable-not attempted and the patient did not perform the activity before the current illness, exacerbation or injury. 10-Not Attempted due to Environmental Limitations-(lack of equipment, weather restraints, etc.). 88-Not Attempted due to Medical Conditions or Safety Concerns. Roll Left to Right (QC): 3 Sit to Lying (QC): 4 Sit to Stand (QC): 4 Chair/Cvu-ql-Zsglt Xfer(QC): 4 Car Transfer (QC): 2 Gait Training Does the Patient Walk?: Yes Distance: 60', 40'x2 Walk 10 feet (QC): 4 Walk 50 ft with 2 Turns(QC): 4 Walk 150 ft (QC): 88 Walking 10ft/uneven surface-QC: 88 Gait Persons Needed: 1 Gait Assistive Device: FWW Wheelchair Training Does the Pt Use a Wheelchair?: No Wheel 50 ft with 2 turns (QC): 1 Wheel 150 ft (QC): 1 Type of Wheelchair: N/A Stair Training 1 Step (curb) (QC): 88 4 Steps (QC): 88 12 Steps (QC): 88 Balance Picking up an Object (QC): 88 ADL-Treatment Eating (QC): 6 (IND per pt report.) Oral Hygiene (QC): 6 (IND seated at sink) Shower/Bathe Self (QC): 5 (set up at SC) Upper Body Dressing (QC): 5 (set up) Lower Body Dressing (QC): 4 (SBA, cue to use AE for threading RLE. ) On/Off Footwear (QC): 2 (Pt able to doff gripper socks using career professional. assist required to don compression socks and gripper socks.) Toileting Hygiene (QC): 4 (SBA, pt able to manage clothing and wash buttocks in shower) Assessment/Plan Assessment and Plan Assess & Plan/Chief Complaint Assessment: Cardiac debility Nonischemic cardiomyopathy Persistent atrial fibrillation Previous COVID infection Hypoxia BPH Hypothyroidism Diabetes Prostate cancer history Elevated liver enzymes Insomnia Obesity History of acute kidney injury Hyponatremia Yeast UTI Urinary retention requiring Hawkins catheter for 2 weeks now discontinued on 01/14/2022 and voiding well Hyponatremia requiring fluid restriction on 01/15/2022 Plan: Rehab protocol Dr. Kramer consult Supportive care 01/10/22: Monitor closely UTI treatment 01/11/2022: Diflucan Await final urine culture 01/12/2022: Diflucan Urology tomorrow Monitor low blood pressure 01/13/2022: Appreciate urology Appreciate cardiology 01/14/2022: DC catheter Appreciate urology 01/15/2022: Supportive care Voiding well Fluid restriction 01/16/2022: Fluid restriction Supportive care Monitor blood pressure (1) Chronic HFrEF (heart failure with reduced ejection fraction) Assessment & Plan: This is a recent diagnosis in this patient. This is due to nonischemic cardiomyopathy. All of his guideline directed medications have been resumed. I have had to decrease his guideline directed medical therapy due to low blood pressures. We have now spaced out the medication due to hypotension. (2) Nonischemic cardiomyopathy Assessment & Plan: He has a recently diagnosed nonischemic cardiomyopathy of unknown known etiology. He did have COVID earlier in the year but it was 2 months before he developed his current symptoms so unclear whether or not this could have anything to do with the COVID infection. He underwent a cardiac catheterization at an outside facility that did not show any significant coronary artery disease. As above, his guideline directed medical therapy has all been resumed. He has a prophylactic defibrillator in place which was just implanted on 01/08. (3) Persistent atrial fibrillation Assessment & Plan: This was also a new diagnosis in the patient. He is on apixaban for stroke prophylaxis and amiodarone for rhythm management. At some point, we will need to consider whether or not to discontinue the amiodarone. (4) Orthostatic hypotension Assessment & Plan: He has been having some symptomatic low blood pressures most likely due to his medication for the cardiomyopathy and heart failure. I have adjusted his medication and the symptomatic hypotension seems to have improved. As above, I have asked his nurse to stagger his medications to help avoid hypotension. (5) Pulmonary hypertension Assessment & Plan: This is likely due to the acute heart failure. This will need to be followed longitudinally. (6) Nonrheumatic aortic valve stenosis with regurgitation Assessment & Plan: He appears to have at least moderate aortic stenosis by visual inspection on his echocardiogram done here on 01/13. He most likely has low gradients due to the severe cardiomyopathy. This condition will need to be followed longitudinally. (7) Primary hypertension Assessment & Plan: His blood pressures have been running somewhat on the low side. I have adjusted his medication as outlined above (8) Mixed hyperlipidemia Assessment & Plan: Continue simvastatin. (9) Type 2 diabetes mellitus with complication Assessment & Plan: This will be managed by the hospitalist. His Jardiance should be continued. There is good data that this medication is not only effective for diabetes but also helps reduce heart failure admissions. GUERRERO COLE DO January 16, 2022 05:56
[2022-01-16 06:01] LABS: POTASSIUM 4.6 MMOL/L (3.6-5.0)
[2022-01-16 06:03] LABS: CALCIUM 9.2 MG/DL (8.5-10.1)
[2022-01-16 06:07] LABS: CREATININE SERUM 1.47 MG/DL (0.60-1.30)
[2022-01-16] MEDS: KCL 10 MEQ TAB (MICRO K) PO SCH (06:45)
[2022-01-16] MEDS: LEVOTHYROXINE 25 MCG (LEVOTHROID) TAB PO SCH (06:45)
[2022-01-16 07:58] VITALS: BP 90/55
--- NOTE | 2022-01-16 08:19 | Occupational Ther Daily Note ---
OT Current Status-Daily Note Subjective Pt up in recliner, states he feels better than yesterday, but also feels like his ears are clogged. Mental Status/Objective Patient Orientation: Normal For Age ADL-Treatment Therapy Code Descriptions/Definitions Functional [place] Measure: 0=Not Assessed/NA 4=Minimal Assistance 1=Total Assistance 5=Supervision or Setup 2=Maximal Assistance 6=Modified [place] 3=Moderate Assistance 7=Complete IndependenceSCALE: Activities may be completed with or without assistive devices. 2-Rqizzvukxm-zfirsud completes the activity by him/herself with no assistance from a helper. 5-Set-up or Clean-up Assistance-helper sets up or cleans up; patient completes activity. [place] assists only prior to or following the activity. 4-Supervision or Touching Assistance-helper provides verbal cues and/or jose enoc/steadying and/or contact guard assistance as patient completes activity. Assistance may be provided throughout the activity or intermittently. 3-Partial/Moderate Assistance-helper does LESS THAN HALF the effort. [place] lifts, holds or supports trunk or limbs, but provides less than half the effort. 2-Substantial/Maximal Assistance-helper does MORE THAN HALF the effort. [place] lifts or holds trunk or limbs and provides more than half the effort. 0-Zjhvrfaxl-jaojao does ALL the effort. Patient does none of the effort to complete the activity. Or, the assistance of 2 or more helpers is required for the patient to complete the activity. If activity was not attempted, code reason: 7-Patient Refused. 9-Not Applicable-not attempted and the patient did not perform the activity before the current illness, exacerbation or injury. 10-Not Attempted due to Environmental Limitations-(lack of equipment, weather restraints, etc.). 88-Not Attempted due to Medical Conditions or Safety Concerns. Other Treatment Pt up in recliner, agreeable to OT Tx. Pt declines ADLs on this date, as he would prefer to wait until Wednesday. Pt agreeable to OT Tx with focus on increasing BUE strength and activity tolerance. Pt used FWW to go to therapy gym, SBA. Pt completed x15 mins on arm bike, 10 watt resistance, no rest breaks. Pt then completed pegboard, alternating hands to place/remove 1" pegs. Pt completed task with 2lb wrist weight RUE, 1 lb on LUE, completing x100 pegs. Pt removed beads from heavy resistance (green) theraputty, able to locate all beads without cues. Pt returned to his room using FWW, SBA. Post tx, pt in recliner, call light in reach and all needs met. Education OT Patient Education: Correct positioning, Energy conservation, Modified ADL techniques, Progress toward Goal/Update tx plan, Purpose of tx/functional activities Teaching Recipient: Patient Teaching Methods: Discussion Response to Teaching: Verbalize Understanding OT Short Term Goals Short Term Goals Time Frame: January 17, 2022 Eatin Oral hygiene: 6 Toileting hygiene: 4 Shower/bathe self: 3 Upper body dressin Lower body dressin Putting on/taking off footwear: 3 OT Rack Worker Goals Half-Way Goals Time Frame: January 24, 2022 Eating (QC): 6 Oral Hygiene (QC): 6 Toileting Hygiene (QC): 6 Shower/Bathe Self (QC): 5 Upper Body Dressing (QC): 6 Lower Body Dressing (QC): 5 On/Off Footwear (QC): 5 Additional Goals: 1-Demonstrate ADL Tasks, 2-Verbalize Understanding, 3- ImproveStrength/Saul 1=Demonstrate adherence to instructed precautions during ADL tasks. 2=Patient will verbalize/demonstrate understanding of assistive devices/modifications for ADL. 3=Patient will improve strength/tolerance for activity to enable patient to perform ADL's. OT Education/Plan Problem List/Assessment Assessment: Decreased Activ Tolerance, Decreased UE Strength, Impaired Funct B alance, Impaired I ADL's, Impaired Self-Care Skills Discharge Recommendations Plan/Recommendations: Continue POC Treatment Plan/Plan of Care Patient would benefit from OT for education, treatment and training to promote independence in ADL's, mobility, safety and/or upper extremity function for ADL's. Plan of Care: ADL Retraining, Functional Mobility Treatment Duration: January 10, 2022 Frequency: Modified Program (IRF) Estimated Hrs Per Day: Other Agreement: Yes Rehab Potential: Good Time/GCodes Start Time: 08:00 Stop Time: 09:00 Total Time Billed (hr/min): 60 Billed Treatment Time 1, EX (15'), FA 3 (45') MINOR DAVENPORT OT January 16, 2022 08:19
--- NOTE | 2022-01-16 08:51 | Cardiology Progress Note ---
Progress Note-Cardiology Events since last exam Date Seen by Provider: January 16, 2022 Time Seen by Provider: 08:49 Events since last exam I am following him due to heart failure and cardiomyopathy. He remains on the inpatient physical rehabilitation unit. He has now developed hyponatremia. He denies chest discomfort, dyspnea at rest, palpitations, or syncope. He still has mild ankle edema. Certain portions of this document may have been dictated utilizing voice recognition technology. Inherent to this technology, typographical and grammatical errors may exist. As much as I am diligent to identify and correct these mistakes, some errors may remain in the document. Vitals Last set of Vitals Signs Vital Signs 01/16/22 07:58 Temp 36.2 Pulse 88 Resp 18 B/P (MAP) 90/55 (67) Pulse Ox 100 O2 Delivery Room Air Labs Labs Laboratory Tests 01/16/22 05:00 Exam Vital Signs Vital Signs Date Time Temp Pulse Resp B/P (MAP) Pulse Ox O2 Delivery O2 Flow Rate FiO2 01/16/22 07:58 36.2 88 18 90/55 (67) 100 Room Air Physical Exam General: Alert. No acute distress. Eye: No xanthelasma. HENT: Normocephalic. Neck: Jugular venous pressure does not appear elevated. Respiratory: Lungs are clear to auscultation. Respirations are non-labored. B reath sounds are equal. Symmetrical chest wall expansion. Cardiovascular: Normal rate. Regular rhythm. 1/6 systolic ejection murmur. No gallop. 1+ bilateral pretibial edema, slightly worse on the left. Gastrointestinal: Soft. Normal bowel sounds. Skin: Warm. Dry. Neurologic: Alert and oriented to person, place, time. Cranial nerves 3-11 grossly intact. Psychiatric: Cooperative. Appropriate mood & affect. Labs Laboratory Tests Test 01/16/22 05:00 Range/Units Sodium Level 123 *L 135-145 MMOL/L Potassium Level 4.6 3.6-5.0 MMOL/L Chloride Level 90 L 98-107 MMOL/L Carbon Dioxide Level 19 L 21-32 MMOL/L Anion Gap 14 5-14 MMOL/L Blood Urea Nitrogen 21 H 7-18 MG/DL Creatinine 1.47 H 0.60-1.30 MG/DL Estimat Glomerular Filtration Rate 50 BUN/Creatinine Ratio 14 Glucose Level 114 H 70-105 MG/DL Calcium Level 9.2 8.5-10.1 MG/DL Diagnosis/Problems Diagnosis/Problems (1) Chronic HFrEF (heart failure with reduced ejection fraction) Assessment & Plan: This is a recent diagnosis in this patient. This is due to nonischemic cardiomyopathy. We will continue the current guideline directed medical therapy. I have had to adjust some of the medications due to low blood pressures. We have now spaced out the medication due to hypotension. (2) Hyponatremia Assessment & Plan: This could be due to the furosemide and possibly his heart failure in general. A fluid restriction has been ordered by the rehab provider. I will put his furosemide on hold for the time being. (3) Nonischemic cardiomyopathy Assessment & Plan: He has a recently diagnosed nonischemic cardiomyopathy of unknown known etiology. He did have COVID earlier in the year but it was 2 months before he developed his current symptoms so unclear whether or not this could have anything to do with the COVID infection. He underwent a cardiac catheterization at an outside facility that did not show any significant coronary artery disease. As above, his guideline directed medical therapy has all been resumed. He has a prophylactic defibrillator in place which was just implanted on 01/08. (4) Persistent atrial fibrillation Assessment & Plan: This was also a new diagnosis in the patient. He is on apixaban for stroke prophylaxis and amiodarone for rhythm management. At some point in time, we will need to consider whether or not to discontinue the amiodarone. (5) Orthostatic hypotension Assessment & Plan: He has been having some symptomatic low blood pressures most likely due to his medication for the cardiomyopathy and heart failure. I have adjusted his medication and the symptomatic hypotension seems to have improved. As above, I have asked his nurse to stagger his medications to help avoid hypotension. (6) Pulmonary hypertension Assessment & Plan: This is likely due to the acute heart failure. This will need to be followed longitudinally. (7) Nonrheumatic aortic valve stenosis with regurgitation Assessment & Plan: He appears to have at least moderate aortic stenosis by visual inspection on his echocardiogram done here on 01/13. He most likely has low gradients due to the severe cardiomyopathy. This condition will need to be followed longitudinally. (8) Primary hypertension Assessment & Plan: His blood pressures have been running somewhat on the low side. I have adjusted his medication as outlined above (9) Mixed hyperlipidemia Assessment & Plan: Continue simvastatin. (10) Type 2 diabetes mellitus with complication Assessment & Plan: This will be managed by the hospitalist. His Jardiance should be continued. There is good data that this medication is not only effective for diabetes but also helps reduce heart failure admissions. LAILA RAMOS JR, MD January 16, 2022 08:51
--- NOTE | 2022-01-16 09:16 | Physical Therapy Daily Note ---
PT Daily Note-Current Subjective Patient was in chair and agreeable to PT. Patient reports a headache with a 7/10 pain and says he has a head cold. He reports he is still tired today, but feels better than yesterday and got better sleep Mental Status Patient Orientation: Person, Place, Situation Transfers SCALE: Activities may be completed with or without assistive devices. 1-Mxoppwnimd-lftyxgb completes the activity by him/herself with no assistance from a helper. 5-Set-up or Clean-up Assistance-helper sets up or cleans up; patient completes activity. [place] assists only prior to or following the activity. 4-Supervision or Touching Assistance-helper provides verbal cues and/or touching/steadying and/or contact guard assistance as patient completes activity. Assistance may be provided throughout the activity or intermittently. 3-Partial/Moderate Assistance-helper does LESS THAN HALF the effort. [place] lifts, holds or supports trunk or limbs, but provides less than half the effort. 2-Substantial/Maximal Assistance-helper does MORE THAN HALF the effort. [place] lifts or holds trunk or limbs and provides more than half the effort. 7-Walhxsysq-cdqsoq does ALL the effort. Patient does none of the effort to complete the activity. Or, the assistance of 2 or more helpers is required for the patient to complete the activity. If activity was not attempted, code reason: 7-Patient Refused. 9-Not Applicable-not attempted and the patient did not perform the activity before the current illness, exacerbation or injury. 10-Not Attempted due to Environmental Limitations-(lack of equipment, weather restraints, etc.). 88-Not Attempted due to Medical Conditions or Safety Concerns. Sit to Stand (QC): 3 Rosalino-CGA for sit to stand transfers Weight Bearing Right Lower Extremity: Right Full Weight Bearing Left Lower Extremity: Left Full Weight Bearing Gait Training Does the Patient Walk?: Yes Distance: 75'x2 Walk 10 feet (QC): 4 Walk 50 ft with 2 Turns(QC): 4 Gait Assistive Device: FWW Slightly hunched posture. Wheelchair Training Does the Pt Use a Wheelchair?: No Exercises Standing: Hip Abduction, Heel/toe raises (10), Marching Standing Reps: 20 NuStep Minutes: 15 NuStep Workload: 4 Treatments Leg press (3x20 reps. Modified using NuStep machine with red band for resistance on one set.) LE strengthening, endurance, ambulation Assessment Current Status: Fair Progress Patient did not tolerate therapy as well today. Patient continued to need frequent and long rest breaks after doing minimal activity. He states that his headache/congestion is what is holding him back the most. Patient has instances of unsteadiness when doing standing exercises. He needs VC for walker placement when transfering. Was left in chair with call light tray and all needs met. PT Short Term Goals Short Term Goals Time Frame: January 16, 2022 Roll Left & Right: 4 Sit to lyin (CGA) Lying to sitting on side of be: 4 (CGA) Sit to stand: 3 Chair/gdy-wg-jplpx transfer: 3 Toilet transfer: 3 Car transfer: 3 Walk 10 feet: 4 (CGA) Walk 50 feet with two turns: 3 Walk 150 feet: 3 Walking 10ft on uneven surface: 3 1 step (curb): 4 PT Half-Way Goals Half-Way Goals PT Half-Way Goals Time Frame: January 30, 2022 Roll Left & Right (QC): 6 Sit to Lying (QC): 4 (SBA) Lying-Sitting on Side/Bed(QC): 4 (SBA) Sit to Stand (QC): 4 (CGA) Chair/Weg-pv-Lpqmu Xfer(QC): 4 (CGA) Toilet Transfer (QC): 4 (CGA) Car Transfer (QC): 4 (CGA) Does the Patient Walk: Yes Walk 10 feet (QC): 4 (SBA) Walk 50ft with 2 Turns (QC): 4 (CGA) Walk 150 ft (QC): 4 (CGA) Walking 10ft on Uneven Surface: 4 (CGA) 1 Step (curb) (QC): 4 (CGA) 4 Steps (QC): 88 12 Steps (QC): 88 Picking up an Object (QC): 4 (CGA with experimental technician) Does the Pt use WC or Scooter?: No Wheel 50 feet with 2 turns (QC: 9 Type: N/A Wheel 150 feet: 9 Type: N/A PT Plan Problem List Problem List: Activity Tolerance, Functional Strength, Safety, Balance, Gait, Transfer, Bed Mobility, ROM Treatment/Plan Treatment Plan: Continue Plan of Care Treatment Plan: Bed Mobility, Education, Functional Activity Saul, Functional Strength, Group Therapy, Gait, Safety, Therapeutic Exercise, Transfers Treatment Duration: January 30, 2022 Frequency: At least 5 of 7 days/Wk (IRF) Estimated Hrs Per Day: 1.5 hours per day Patient and/or Family Agrees t: Yes Safety Risks/Education Patient Education: Gait Training, Transfer Techniques, Reviewed Precautions, Correct Positioning, Safety Issues Teaching Recipient: Patient Teaching Methods: Demonstration, Discussion Response to Teaching: Verbalize Understanding, Return Demonstration Time/GCodes Time In: 0900 Time Out: 1000 Total Billed Treatment Time: 60 Total Billed Treatment 1 visit EX 50min FA 10min SOLO MULLER PT January 16, 2022 09:16
[2022-01-16] MEDS: ASPIRIN E.C. 81 MG (ECOTRIN) TAB PO SCH (09:59)
[2022-01-16] MEDS: APIXABAN 5 MG (ELIQUIS) TABLET PO SCH ×2 (09:59→20:32)
[2022-01-16] MEDS: SIMvastatin 10 MG (ZOCOR) TAB PO SCH (09:59)
[2022-01-16] MEDS: EMPAGLIFLOZIN 10 MG TABLET (JARDIANCE) PO SCH (10:00)
[2022-01-16] MEDS: AMIODARONE 200 MG (CORDARONE) TAB PO SCH (10:00)
[2022-01-16] MEDS: LORATADINE (CLARITIN) 10 MG TAB PO SCH (10:00)
[2022-01-16] MEDS: TAMSULOSIN 0.4 MG (FLOMAX) CAP PO SCH (10:00)
[2022-01-16] MEDS: SACUBITRIL/VALSARTAN 24/26 MG (ENTRESTO) TABLET PO SCH ×2 (10:00→20:32)
[2022-01-16] MEDS: FLUTICASONE NASAL SPRAY (FLONASE) 16 GM BTL NS SCH (10:22)
--- NOTE | 2022-01-16 11:37 | Physical Therapy Daily Note ---
PT Daily Note-Current Subjective Patient was in chair upon entering and compliant to treat. Still complains of headache and fatigue at this time. Mental Status Patient Orientation: Person, Place, Situation Transfers SCALE: Activities may be completed with or without assistive devices. 2-Wsyqzznxrg-rcvhvnj completes the activity by him/herself with no assistance from a helper. 5-Set-up or Clean-up Assistance-helper sets up or cleans up; patient completes activity. [place] assists only prior to or following the activity. 4-Supervision or Touching Assistance-helper provides verbal cues and/or touching/steadying and/or contact guard assistance as patient completes activity. Assistance may be provided throughout the activity or intermittently. 3-Partial/Moderate Assistance-helper does LESS THAN HALF the effort. [place] lifts, holds or supports trunk or limbs, but provides less than half the effort. 2-Substantial/Maximal Assistance-helper does MORE THAN HALF the effort. [place] lifts or holds trunk or limbs and provides more than half the effort. 7-Gytlhoffm-kqjddr does ALL the effort. Patient does none of the effort to complete the activity. Or, the assistance of 2 or more helpers is required for the patient to complete the activity. If activity was not attempted, code reason: 7-Patient Refused. 9-Not Applicable-not attempted and the patient did not perform the activity before the current illness, exacerbation or injury. 10-Not Attempted due to Environmental Limitations-(lack of equipment, weather restraints, etc.). 88-Not Attempted due to Medical Conditions or Safety Concerns. Sit to Stand (QC): 3 Weight Bearing Right Lower Extremity: Right Full Weight Bearing Left Lower Extremity: Left Full Weight Bearing Gait Training Distance: 60'x2 Walk 10 feet (QC): 4 Walk 50 ft with 2 Turns(QC): 4 Gait Assistive Device: FWW CGA. Hunched posture. Slow speed. Wheelchair Training Does the Pt Use a Wheelchair?: No Exercises Seated Therapy Exercises: Ankle pumps, Long arc quads Seated Reps: 30 Standing: Sit to Stand (elevated table height ) Standing Reps: 15 Treatments Seated ab exercises (Patient sat at edge of chair was instructed to sway back and forth as much as comfortable to engage core) Assessment Current Status: Poor Progress Patient continues to demonstrate poor endurance and strength needing lots of rest breaks for little activity. Patient needs VC for walker placement when transfering. During seated ab activity, patient had a bladder movement on the chair/floor. He was taken back to room and changed into new clothes with help from nursing aid. Patient was left in recliner with call light, tray, and all needs met. PT Short Term Goals Short Term Goals Time Frame: January 16, 2022 Roll Left & Right: 4 Sit to lyin (CGA) Lying to sitting on side of be: 4 (CGA) Sit to stand: 3 Chair/qrf-pn-qhrch transfer: 3 Toilet transfer: 3 Car transfer: 3 Walk 10 feet: 4 (CGA) Walk 50 feet with two turns: 3 Walk 150 feet: 3 Walking 10ft on uneven surface: 3 1 step (curb): 4 PT Commercial Banker Goals Snf Goals PT Commercial Banker Goals Time Frame: January 30, 2022 Roll Left & Right (QC): 6 Sit to Lying (QC): 4 (SBA) Lying-Sitting on Side/Bed(QC): 4 (SBA) Sit to Stand (QC): 4 (CGA) Chair/Lgt-sl-Lldwp Xfer(QC): 4 (CGA) Toilet Transfer (QC): 4 (CGA) Car Transfer (QC): 4 (CGA) Does the Patient Walk: Yes Walk 10 feet (QC): 4 (SBA) Walk 50ft with 2 Turns (QC): 4 (CGA) Walk 150 ft (QC): 4 (CGA) Walking 10ft on Uneven Surface: 4 (CGA) 1 Step (curb) (QC): 4 (CGA) 4 Steps (QC): 88 12 Steps (QC): 88 Picking up an Object (QC): 4 (CGA with special loan officer) Does the Pt use WC or Scooter?: No Wheel 50 feet with 2 turns (QC: 9 Type: N/A Wheel 150 feet: 9 Type: N/A PT Plan Problem List Problem List: Activity Tolerance, Functional Strength, Safety, Balance, Gait, Transfer, Bed Mobility, ROM Treatment/Plan Treatment Plan: Continue Plan of Care Treatment Plan: Bed Mobility, Education, Functional Activity Saul, Functional Strength, Group Therapy, Gait, Safety, Therapeutic Exercise, Transfers Treatment Duration: January 30, 2022 Frequency: At least 5 of 7 days/Wk (IRF) Estimated Hrs Per Day: 1.5 hours per day Patient and/or Family Agrees t: Yes Safety Risks/Education Patient Education: Gait Training, Transfer Techniques, Reviewed Precautions, Correct Positioning, Safety Issues Teaching Recipient: Patient Teaching Methods: Demonstration, Discussion Response to Teaching: Verbalize Understanding, Return Demonstration Time/GCodes Time In: 1115 Time Out: 1145 Total Billed Treatment Time: 30 Total Billed Treatment 1 visit FA 15'min EX 15' SOLO MULLER PT January 16, 2022 11:37
[2022-01-16 12:55] VITALS: BP 89/61
--- NOTE | 2022-01-16 13:20 | Occupational Ther Daily Note ---
OT Current Status-Daily Note Subjective Pt alert, sitting in recliner. Pt's present in room. Pt agrees to therapy. No c/o pain, only fatigue. Mental Status/Objective Patient Orientation: Person, Place, Time, Situation ADL-Treatment Therapy Code Descriptions/Definitions Functional [place] Measure: 0=Not Assessed/NA 4=Minimal Assistance 1=Total Assistance 5=Supervision or Setup 2=Maximal Assistance 6=Modified [place] 3=Moderate Assistance 7=Complete IndependenceSCALE: Activities may be completed with or without assistive devices. 2-Qkxkgqmaku-gplwbog completes the activity by him/herself with no assistance from a helper. 5-Set-up or Clean-up Assistance-helper sets up or cleans up; patient completes activity. [place] assists only prior to or following the activity. 4-Supervision or Touching Assistance-helper provides verbal cues and/or touching/steadying and/or contact guard assistance as patient completes activity. Assistance may be provided throughout the activity or intermittently. 3-Partial/Moderate Assistance-helper does LESS THAN HALF the effort. [place] lifts, holds or supports trunk or limbs, but provides less than half the effort. 2-Substantial/Maximal Assistance-helper does MORE THAN HALF the effort. [place] lifts or holds trunk or limbs and provides more than half the effort. 3-Unfggfzsm-efhtza does ALL the effort. Patient does none of the effort to complete the activity. Or, the assistance of 2 or more helpers is required for the patient to complete the activity. If activity was not attempted, code reason: 7-Patient Refused. 9-Not Applicable-not attempted and the patient did not perform the activity before the current illness, exacerbation or injury. 10-Not Attempted due to Environmental Limitations-(lack of equipment, weather restraints, etc.). 88-Not Attempted due to Medical Conditions or Safety Concerns. Other Treatment Skilled instruction for technique and modifications for precautions for B UE exercises using 3# wt and gravity. Using 3# wts, pt able to complete bicep curls (15 reps 3 sets), front punch holding 3# wt with each hand (3 sets 10 reps), wrist flex/ext (3 sets 10 reps), modified shldr abd/add against gravity(15 reps 2 sets). Pt tolerated well though c/o fatigue and muscle weakness. After session, pt sitting in recliner with call light/phone in reach. present in room. All needs met. OT Short Term Goals Short Term Goals Time Frame: January 17, 2022 Eatin Oral hygiene: 6 Toileting hygiene: 4 Shower/bathe self: 3 Upper body dressin Lower body dressin Putting on/taking off footwear: 3 OT Refinery Operator Assistant Goals Halfway Goals Time Frame: January 24, 2022 Eating (QC): 6 Oral Hygiene (QC): 6 Toileting Hygiene (QC): 6 Shower/Bathe Self (QC): 5 Upper Body Dressing (QC): 6 Lower Body Dressing (QC): 5 On/Off Footwear (QC): 5 Additional Goals: 1-Demonstrate ADL Tasks, 2-Verbalize Understanding, 3- ImproveStrength/Saul 1=Demonstrate adherence to instructed precautions during ADL tasks. 2=Patient will verbalize/demonstrate understanding of assistive devices/modifications for ADL. 3=Patient will improve strength/tolerance for activity to enable patient to perform ADL's. OT Education/Plan Problem List/Assessment Assessment: Decreased Activ Tolerance, Decreased UE Strength, Restricted Funct UE ROM Discharge Recommendations Plan/Recommendations: Continue POC Treatment Plan/Plan of Care Patient would benefit from OT for education, treatment and training to promote independence in ADL's, mobility, safety and/or upper extremity function for ADL's. Plan of Care: ADL Retraining, Functional Mobility Treatment Duration: January 10, 2022 Frequency: Modified Program (IRF) Estimated Hrs Per Day: Other Agreement: Yes Rehab Potential: Good Time/GCodes Start Time: 12:50 Stop Time: 13:20 Total Time Billed (hr/min): 30 Billed Treatment Time 1 visit-EX 2 (30 min) JUSTO LEONARDO January 16, 2022 13:20
[2022-01-16] MEDS: DOCUSATE SODIUM 100 MG (COLACE) CAP PO SCH ×2 (15:07→20:27)
[2022-01-16] MEDS: polyethylene glycoL POWDER 17 GM (MIRALAX) PACK PO SCH ×2 (15:08→20:27)
[2022-01-16] MEDS: SENNA W/DOCUSATE (SENOKOT S) TABLET PO SCH ×2 (15:08→20:27)
[2022-01-16] MEDS: EPLERONONE 25 MG PO SCH (15:11)
[2022-01-16] MEDS ORDERED: TERA2CAP4 PO (15:49)
[2022-01-16] MEDS ORDERED: ASPI325T32 PO (15:49)
[2022-01-16] MEDS ORDERED: METH-731 PO (15:49)
[2022-01-16] MEDS ORDERED: GLIP5TAB13 PO (15:49)
[2022-01-16] MEDS ORDERED: NIFE30TA89 PO (15:49)
[2022-01-16] MEDS ORDERED: LOSA1TAB20 PO (15:49)
[2022-01-16] MEDS ORDERED: MELO15TA39 PO (15:49)
[2022-01-16] MEDS ORDERED: SIMV80TA21 PO (15:49)
[2022-01-16] MEDS ORDERED: CYAN25003 SL (15:58)
[2022-01-16] MEDS ORDERED: CRAN1CAP9 PO (15:58)
[2022-01-16] MEDS ORDERED: FURO40TA4 PO (15:58)
[2022-01-16] MEDS ORDERED: POTA99TA18 PO (15:58)
[2022-01-16] MEDS ORDERED: MULT-1061 PO (15:58)
[2022-01-16] MEDS ORDERED: ASCO500T17 PO (15:58)
[2022-01-16] MEDS ORDERED: SENN-109 PO (15:58)
[2022-01-16] MEDS ORDERED: CYCL10TA25 PO (15:58)
[2022-01-16 19:35] VITALS: BP 103/64
--- NOTE | 2022-01-17 03:30 | PM&R Progress Note ---
Subjective HPI/CC On Admission Date Seen by Provider: January 17, 2022 Time Seen by Provider: 05:45 Subjective/Events-last exam 01/17/22: Pt doing about the same Asymptomatic now but sodium is down to 122 from 123, fluid restriction at 800 will be ordered Very complicated issue due to severe cardiomyopathy 01/16/2022: Dr. Lovell will see him for toenails Fluid restriction will continue, sodium level 123 Increased weight gain from water Lungs remain clear Voiding well 01/15/2022: Patient doing really well Voiding well since catheter discontinued Sodium level 126 so I educated him on fluid restriction Dr. Lovell will see you 2 pound weight gain every day Bowels are moving 01/14/22: Pt is doing pretty well Complaining of congestion Flonase will be added to the Claritin I ordered yesterday Bowels moved a few days ago, refusing laxatives Dr. Kramer managing the hypotension Dr. Hendricks had me order discontinuation of the catheter Diflucan maintained for yeast UTI 01/13/2022: Patient doing really well Urology will see him today No pain is reported Seems to be recovering well Hypotension limits giving most cardiac meds 01/12/2022: Dr. Hendricks will see him tomorrow Diflucan maintain for yeast UTI No pain is reported Improving ambulation No falls Blood pressure runs low 01/11/2022: Patient doing well We will consult urology tomorrow Yeast will be treated with Diflucan Awaiting final urine culture Checked meds and labs 01/10/2022: Patient doing well at bedside reviewing meds with nurse Changing out catheter tubing UA sent down will hold off on treatment until culture known Yeast noted so we will start Diflucan Review of Systems General: Fatigue, Malaise Objective Exam Vital Signs Vital Signs Date Time Temp Pulse Resp B/P (MAP) Pulse Ox O2 Delivery O2 Flow Rate FiO2 01/17/22 08:55 Room Air 01/17/22 07:11 36.0 79 16 94/63 (73) 97 Capillary Refill : General Appearance: No Apparent Distress, WD/WN, Chronically ill, Obese HEENT: PERRL/EOMI, Normal ENT Inspection, Pharynx Normal Neck: Full Range of Motion, Normal Inspection, Non Tender, Supple, Carotid Bruit Respiratory: Chest Non Tender, Lungs Clear, No Accessory Muscle Use, No Respiratory Distress, Decreased Breath Sounds Cardiovascular: No Edema, No Gallop, No JVD, No Murmur, Normal Peripheral Pulses, Irregularly Irregular Gastrointestinal: Normal Bowel Sounds, No Organomegaly, No Pulsatile Mass, Non Tender, Soft Back: Normal Inspection, No CVA Tenderness, No Vertebral Tenderness Extremity: Normal Capillary Refill, Normal Inspection, Normal Range of Motion, Non Tender, No Calf Tenderness, No Pedal Edema Neurologic/Psychiatric: Alert, Oriented x3, No Motor/Sensory Deficits, Normal Mood/Affect Skin: Normal Color, Warm/Dry Lymphatic: No Adenopathy Results/Procedures Lab Laboratory Tests 01/17/22 05:06 Patient resulted labs reviewed. FIM Transfers Therapy Code Descriptions/Definitions Functional [place] Measure: 0=Not Assessed/NA 4=Minimal Assistance 1=Total Assistance 5=Supervision or Setup 2=Maximal Assistance 6=Modified [place] 3=Moderate Assistance 7=Complete IndependenceSCALE: Activities may be completed with or without assistive devices. 9-Lgsuoasjyu-gvzhddr completes the activity by him/herself with no assistance from a helper. 5-Set-up or Clean-up Assistance-helper sets up or cleans up; patient completes activity. [place] assists only prior to or following the activity. 4-Supervision or Touching Assistance-helper provides verbal cues and/or touching/steadying and/or contact guard assistance as patient completes activity. Assistance may be provided throughout the activity or intermittently. 3-Partial/Moderate Assistance-helper does LESS THAN HALF the effort. [place] lifts, holds or supports trunk or limbs, but provides less than half the effort. 2-Substantial/Maximal Assistance-helper does MORE THAN HALF the effort. [place] lifts or holds trunk or limbs and provides more than half the effort. 1-Lxdcztftd-eteaoz does ALL the effort. Patient does none of the effort to c omplete the activity. Or, the assistance of 2 or more helpers is required for the patient to complete the activity. If activity was not attempted, code reason: 7-Patient Refused. 9-Not Applicable-not attempted and the patient did not perform the activity before the current illness, exacerbation or injury. 10-Not Attempted due to Environmental Limitations-(lack of equipment, weather restraints, etc.). 88-Not Attempted due to Medical Conditions or Safety Concerns. Roll Left to Right (QC): 3 Sit to Lying (QC): 4 Sit to Stand (QC): 3 Chair/Wpi-pm-Dhvxx Xfer(QC): 4 Car Transfer (QC): 2 Gait Training Does the Patient Walk?: Yes Distance: 60'x2 Walk 10 feet (QC): 4 Walk 50 ft with 2 Turns(QC): 4 Walk 150 ft (QC): 88 Walking 10ft/uneven surface-QC: 88 Gait Persons Needed: 1 Gait Assistive Device: FWW Wheelchair Training Does the Pt Use a Wheelchair?: No Wheel 50 ft with 2 turns (QC): 1 Wheel 150 ft (QC): 1 Type of Wheelchair: N/A Stair Training 1 Step (curb) (QC): 88 4 Steps (QC): 88 12 Steps (QC): 88 Balance Picking up an Object (QC): 88 ADL-Treatment Eating (QC): 6 (IND per pt report.) Oral Hygiene (QC): 6 (IND seated at sink) Shower/Bathe Self (QC): 5 (set up at SC) Upper Body Dressing (QC): 5 (set up) Lower Body Dressing (QC): 4 (SBA, cue to use AE for threading RLE. ) On/Off Footwear (QC): 2 (Pt able to doff gripper socks using dental detail representative. assist required to don compression socks and gripper socks.) Toileting Hygiene (QC): 4 (SBA, pt able to manage clothing and wash buttocks in shower) Assessment/Plan Assessment and Plan Assess & Plan/Chief Complaint Assessment: Cardiac debility Nonischemic cardiomyopathy Persistent atrial fibrillation Previous COVID infection Hypoxia BPH Hypothyroidism Diabetes Prostate cancer history Elevated liver enzymes Insomnia Obesity History of acute kidney injury Hyponatremia Yeast UTI Urinary retention requiring Hawkins catheter for 2 weeks now discontinued on 01/14/2022 and voiding well Hyponatremia requiring fluid restriction on 01/15/2022 Plan: Rehab protocol Dr. Kramer consult Supportive care 01/10/22: Monitor closely UTI treatment 01/11/2022: Diflucan Await final urine culture 01/12/2022: Diflucan Urology tomorrow Monitor low blood pressure 01/13/2022: Appreciate urology Appreciate cardiology 01/14/2022: DC catheter Appreciate urology 01/15/2022: Supportive care Voiding well Fluid restriction 01/16/2022: Fluid restriction Supportive care Monitor blood pressure 01/17/22: Monitor closely Fluid restriction (1) Chronic HFrEF (heart failure with reduced ejection fraction) Assessment & Plan: This is a recent diagnosis in this patient. This is due to nonischemic cardiomyopathy. We will continue the current guideline directed medical therapy. I have had to adjust some of the medications due to low blood pressures. We have now spaced out the medication due to hypotension. (2) Hyponatremia Assessment & Plan: This could be due to the furosemide and possibly his heart failure in general. A fluid restriction has been ordered by the rehab provider. I will put his furosemide on hold for the time being. (3) Nonischemic cardiomyopathy Assessment & Plan: He has a recently diagnosed nonischemic cardiomyopathy of unknown known etiology. He did have COVID earlier in the year but it was 2 months before he developed his current symptoms so unclear whether or not this could have anything to do with the COVID infection. He underwent a cardiac catheterization at an outside facility that did not show any significant coronary artery disease. As above, his guideline directed medical therapy has all been resumed. He has a prophylactic defibrillator in place which was just implanted on 01/08. (4) Persistent atrial fibrillation Assessment & Plan: This was also a new diagnosis in the patient. He is on apixaban for stroke prophylaxis and amiodarone for rhythm management. At some point in time, we will need to consider whether or not to discontinue the amiodarone. (5) Orthostatic hypotension Assessment & Plan: He has been having some symptomatic low blood pressures most likely due to his medication for the cardiomyopathy and heart failure. I have adjusted his medication and the symptomatic hypotension seems to have improved. As above, I have asked his nurse to stagger his medications to help avoid hypotension. (6) Pulmonary hypertension Assessment & Plan: This is likely due to the acute heart failure. This will need to be followed longitudinally. (7) Nonrheumatic aortic valve stenosis with regurgitation Assessment & Plan: He appears to have at least moderate aortic stenosis by vis ual inspection on his echocardiogram done here on 01/13. He most likely has low gradients due to the severe cardiomyopathy. This condition will need to be followed longitudinally. (8) Primary hypertension Assessment & Plan: His blood pressures have been running somewhat on the low side. I have adjusted his medication as outlined above (9) Mixed hyperlipidemia Assessment & Plan: Continue simvastatin. (10) Type 2 diabetes mellitus with complication Assessment & Plan: This will be managed by the hospitalist. His Jardiance should be continued. There is good data that this medication is not only effective for diabetes but also helps reduce heart failure admissions. GUERRERO COLE DO January 17, 2022 03:30
[2022-01-17 05:36] LABS: POTASSIUM 4.6 MMOL/L (3.6-5.0)
[2022-01-17 05:38] LABS: CALCIUM 8.8 MG/DL (8.5-10.1)
[2022-01-17 05:42] LABS: CREATININE SERUM 1.37 MG/DL (0.60-1.30)
[2022-01-17] MEDS: KCL 10 MEQ TAB (MICRO K) PO SCH (05:43)
[2022-01-17] MEDS: LEVOTHYROXINE 25 MCG (LEVOTHROID) TAB PO SCH (05:43)
[2022-01-17 07:11] VITALS: BP 94/63
[2022-01-17] MEDS: SACUBITRIL/VALSARTAN 24/26 MG (ENTRESTO) TABLET PO SCH ×2 (08:17→20:10)
[2022-01-17] MEDS: SIMvastatin 10 MG (ZOCOR) TAB PO SCH (08:17)
[2022-01-17] MEDS: TAMSULOSIN 0.4 MG (FLOMAX) CAP PO SCH (08:17)
[2022-01-17] MEDS: EMPAGLIFLOZIN 10 MG TABLET (JARDIANCE) PO SCH (08:18)
[2022-01-17] MEDS: APIXABAN 5 MG (ELIQUIS) TABLET PO SCH ×2 (08:18→20:10)
[2022-01-17] MEDS: ASPIRIN E.C. 81 MG (ECOTRIN) TAB PO SCH (08:18)
[2022-01-17] MEDS: LORATADINE (CLARITIN) 10 MG TAB PO SCH (08:18)
[2022-01-17] MEDS: AMIODARONE 200 MG (CORDARONE) TAB PO SCH (08:19)
[2022-01-17] MEDS: FLUTICASONE NASAL SPRAY (FLONASE) 16 GM BTL NS SCH (08:20)
[2022-01-17] MEDS: SENNA W/DOCUSATE (SENOKOT S) TABLET PO SCH ×2 (08:24→20:10)
--- NOTE | 2022-01-17 09:25 | Physical Therapy Daily Note ---
PT Daily Note-Current Subjective Pt sitting up in bed with Nursing trying to get OLVIN hose on pt. Pt agrees to PT and COVER CUTTER assists with OLVIN hose. Pain Numeric Pain Scale: 0-No Pain Mental Status Patient Orientation: Person, Place, Time, Situation Transfers SCALE: Activities may be completed with or without assistive devices. 6-Trqlhjpkwp-mytjzyx completes the activity by him/herself with no assistance from a helper. 5-Set-up or Clean-up Assistance-helper sets up or cleans up; patient completes activity. [place] assists only prior to or following the activity. 4-Supervision or Touching Assistance-helper provides verbal cues and/or touching/steadying and/or contact guard assistance as patient completes activity. Assistance may be provided throughout the activity or intermittently. 3-Partial/Moderate Assistance-helper does LESS THAN HALF the effort. [place] lifts, holds or supports trunk or limbs, but provides less than half the effort. 2-Substantial/Maximal Assistance-helper does MORE THAN HALF the effort. [place] lifts or holds trunk or limbs and provides more than half the effort. 6-Djwuyfvsb-wkmrbr does ALL the effort. Patient does none of the effort to complete the activity. Or, the assistance of 2 or more helpers is required for the patient to complete the activity. If activity was not attempted, code reason: 7-Patient Refused. 9-Not Applicable-not attempted and the patient did not perform the activity before the current illness, exacerbation or injury. 10-Not Attempted due to Environmental Limitations-(lack of equipment, weather restraints, etc.). 88-Not Attempted due to Medical Conditions or Safety Concerns. Lying to Sitting/Side of Bed(Q: 4 Sit to Stand (QC): 4 (with bed raised) Weight Bearing Right Lower Extremity: Right Full Weight Bearing Left Lower Extremity: Left Full Weight Bearing Gait Training Does the Patient Walk?: Yes Distance: 150' Walk 10 feet (QC): 4 Walk 50 ft with 2 Turns(QC): 4 Walk 150 ft (QC): 4 Gait Persons Needed: 1 Gait Assistive Device: FWW Treatments COVER CUTTER assists with donning OLVIN hose. Pt TF to EOB then amb. in Therapy comm[facility] before returning to room to rest in recliner with feet on pillow. All needs met, call light in hand. Assessment Current Status: Fair Progress Pt fatigues and needs RB after walk. PT Short Term Goals Short Term Goals Time Frame: January 16, 2022 Roll Left & Right: 4 Sit to lyin (CGA) Lying to sitting on side of be: 4 (CGA) Sit to stand: 3 Chair/vhd-nq-ogvhf transfer: 3 Toilet transfer: 3 Car transfer: 3 Walk 10 feet: 4 (CGA) Walk 50 feet with two turns: 3 Walk 150 feet: 3 Walking 10ft on uneven surface: 3 1 step (curb): 4 PT [facility] Goals [facility] Goals PT [facility] Goals Time Frame: January 30, 2022 Roll Left & Right (QC): 6 Sit to Lying (QC): 4 (SBA) Lying-Sitting on Side/Bed(QC): 4 (SBA) Sit to Stand (QC): 4 (CGA) Chair/Tpo-bk-Kufar Xfer(QC): 4 (CGA) Toilet Transfer (QC): 4 (CGA) Car Transfer (QC): 4 (CGA) Does the Patient Walk: Yes Walk 10 feet (QC): 4 (SBA) Walk 50ft with 2 Turns (QC): 4 (CGA) Walk 150 ft (QC): 4 (CGA) Walking 10ft on Uneven Surface: 4 (CGA) 1 Step (curb) (QC): 4 (CGA) 4 Steps (QC): 88 12 Steps (QC): 88 Picking up an Object (QC): 4 (CGA with marketing services vice president) Does the Pt use WC or Scooter?: No Wheel 50 feet with 2 turns (QC: 9 Type: N/A Wheel 150 feet: 9 Type: N/A PT Plan Problem List Problem List: Activity Tolerance Treatment/Plan Treatment Plan: Continue Plan of Care Treatment Plan: Bed Mobility, Education, Functional Activity [place], Functional Strength, Group Therapy, Gait, Safety, Therapeutic Exercise, Transfers Treatment Duration: January 30, 2022 Frequency: At least 5 of 7 days/Wk (IRF) Estimated Hrs Per Day: 1.5 hours per day Patient and/or Family Agrees t: Yes Time/GCodes Time In: 900 Time Out: 915 Total Billed Treatment Time: 15 Total Billed Treatment 1, GT (15m) MADYSON SAVAGE PTA January 17, 2022 09:25
[2022-01-17] MEDS: polyethylene glycoL POWDER 17 GM (MIRALAX) PACK PO SCH ×2 (10:20→19:31)
[2022-01-17] MEDS: DOCUSATE SODIUM 100 MG (COLACE) CAP PO SCH ×2 (10:20→20:10)
[2022-01-17 12:41] VITALS: BP 88/63
[2022-01-17] MEDS: MICONAZOLE 2% POWDER (DESENEX AF) 90 GM TOP SCH ×2 (14:59→20:11)
[2022-01-17] MEDS: EPLERONONE 25 MG PO SCH (15:03)
[2022-01-17 20:00] VITALS: BP 92/58
--- NOTE | 2022-01-18 05:35 | PM&R Progress Note ---
Subjective HPI/CC On Admission Date Seen by Provider: January 18, 2022 Time Seen by Provider: 05:30 Subjective/Events-last exam 01/18/2022: Pt doing well Lower extremity edema continues Will monitor sodium level since he is on fluid restriction of 800 cc's daily No SOB 01/17/22: Pt doing about the same Asymptomatic now but sodium is down to 122 from 123, fluid restriction at 800 will be ordered Very complicated issue due to severe cardiomyopathy 01/16/2022: Dr. Lovell will see him for toenails Fluid restriction will continue, sodium level 123 Increased weight gain from water Lungs remain clear Voiding well 01/15/2022: Patient doing really well Voiding well since catheter discontinued Sodium level 126 so I educated him on fluid restriction Dr. Lovell will see you 2 pound weight gain every day Bowels are moving 01/14/22: Pt is doing pretty well Complaining of congestion Flonase will be added to the Claritin I ordered yesterday Bowels moved a few days ago, refusing laxatives Dr. Kramer managing the hypotension Dr. Hendricks had me order discontinuation of the catheter Diflucan maintained for yeast UTI 01/13/2022: Patient doing really well Urology will see him today No pain is reported Seems to be recovering well Hypotension limits giving most cardiac meds 01/12/2022: Dr. Hendricks will see him tomorrow Diflucan maintain for yeast UTI No pain is reported Improving ambulation No falls Blood pressure runs low 01/11/2022: Patient doing well We will consult urology tomorrow Yeast will be treated with Diflucan Awaiting final urine culture Checked meds and labs 01/10/2022: Patient doing well at bedside reviewing meds with nurse Changing out catheter tubing UA sent down will hold off on treatment until culture known Yeast noted so we will start Diflucan Review of Systems General: Fatigue, Malaise Pulmonary: Dyspnea Cardiovascular: Edema Objective Exam Vital Signs Vital Signs Date Time Temp Pulse Resp B/P (MAP) Pulse Ox O2 Delivery O2 Flow Rate FiO2 01/18/22 12:29 89 85/59 (68) 01/18/22 09:00 Room Air 01/18/22 07:02 36.0 18 95 Capillary Refill : General Appearance: No Apparent Distress, WD/WN, Chronically ill, Obese HEENT: PERRL/EOMI, Normal ENT Inspection, Pharynx Normal Neck: Full Range of Motion, Normal Inspection, Non Tender, Supple, Carotid Bruit Respiratory: Chest Non Tender, Lungs Clear, No Accessory Muscle Use, No Respiratory Distress, Decreased Breath Sounds Cardiovascular: No Edema, No Gallop, No JVD, No Murmur, Normal Peripheral Pulses, Irregularly Irregular Gastrointestinal: Normal Bowel Sounds, No Organomegaly, No Pulsatile Mass, Non Tender, Soft Back: Normal Inspection, No CVA Tenderness, No Vertebral Tenderness Extremity: Normal Capillary Refill, Normal Inspection, Normal Range of Motion, Non Tender, No Calf Tenderness, No Pedal Edema Neurologic/Psychiatric: Alert, Oriented x3, No Motor/Sensory Deficits, Normal Mood/Affect Skin: Normal Color, Warm/Dry Lymphatic: No Adenopathy Results/Procedures Lab Laboratory Tests 01/18/22 05:15 Patient resulted labs reviewed. FIM Transfers Therapy Code Descriptions/Definitions Functional [place] Measure: 0=Not Assessed/NA 4=Minimal Assistance 1=Total Assistance 5=Supervision or Setup 2=Maximal Assistance 6=Modified [place] 3=Moderate Assistance 7=Complete IndependenceSCALE: Activities may be completed with or without assistive devices. 4-Uverofnavg-cqxluja completes the activity by him/herself with no assistance from a helper. 5-Set-up or Clean-up Assistance-helper sets up or cleans up; patient completes activity. [place] assists only prior to or following the activity. 4-Supervision or Touching Assistance-helper provides verbal cues and/or touching/steadying and/or contact guard assistance as patient completes activity. Assistance may be provided throughout the activity or intermittently. 3-Partial/Moderate Assistance-helper does LESS THAN HALF the effort. [place] lifts, holds or supports trunk or limbs, but provides less than half the effort. 2-Substantial/Maximal Assistance-helper does MORE THAN HALF the effort. [place] lifts or holds trunk or limbs and provides more than half the effort. 6-Wqsrcirdd-glqymg does ALL the effort. Patient does none of the effort to complete the activity. Or, the assistance of 2 or more helpers is required for the patient to complete the activity. If activity was not attempted, code reason: 7-Patient Refused. 9-Not Applicable-not attempted and the patient did not perform the activity before the current illness, exacerbation or injury. 10-Not Attempted due to Environmental Limitations-(lack of equipment, weather restraints, etc.). 88-Not Attempted due to Medical Conditions or Safety Concerns. Roll Left to Right (QC): 3 Sit to Lying (QC): 4 Sit to Stand (QC): 4 (with bed raised) Chair/Twd-jf-Elbkm Xfer(QC): 4 Car Transfer (QC): 2 Gait Training Does the Patient Walk?: Yes Distance: 150' Walk 10 feet (QC): 4 Walk 50 ft with 2 Turns(QC): 4 Walk 150 ft (QC): 4 Walking 10ft/uneven surface-QC: 88 Gait Persons Needed: 1 Gait Assistive Device: FWW Wheelchair Training Does the Pt Use a Wheelchair?: No Wheel 50 ft with 2 turns (QC): 1 Wheel 150 ft (QC): 1 Type of Wheelchair: N/A Stair Training 1 Step (curb) (QC): 88 4 Steps (QC): 88 12 Steps (QC): 88 Balance Picking up an Object (QC): 88 ADL-Treatment Eating (QC): 6 (IND per pt report.) Oral Hygiene (QC): 6 (IND seated at sink) Shower/Bathe Self (QC): 5 (set up at SC) Upper Body Dressing (QC): 5 (set up) Lower Body Dressing (QC): 4 (SBA, cue to use AE for threading RLE. ) On/Off Footwear (QC): 2 (Pt able to doff gripper socks using business law professor. assist required to don compression socks and gripper socks.) Toileting Hygiene (QC): 4 (SBA, pt able to manage clothing and wash buttocks in shower) Assessment/Plan Assessment and Plan Assess & Plan/Chief Complaint Assessment: Cardiac debility Nonischemic cardiomyopathy Persistent atrial fibrillation Previous COVID infection Hypoxia BPH Hypothyroidism Diabetes Prostate cancer history Elevated liver enzymes Insomnia Obesity History of acute kidney injury Hyponatremia Yeast UTI Urinary retention requiring Hawkins catheter for 2 weeks now discontinued on 01/14/2022 and voiding well Hyponatremia requiring fluid restriction on 01/15/2022 Plan: Rehab protocol Dr. Kramer consult Supportive care 01/10/22: Monitor closely UTI treatment 01/11/2022: Diflucan Await final urine culture 01/12/2022: Diflucan Urology tomorrow Monitor low blood pressure 01/13/2022: Appreciate urology Appreciate cardiology 01/14/2022: DC catheter Appreciate urology 01/15/2022: Supportive care Voiding well Fluid restriction 01/16/2022: Fluid restriction Supportive care Monitor blood pressure 01/17/22: Monitor closely Fluid restriction 01/17/22: Monitor closely Fluid restriction (1) Chronic HFrEF (heart failure with reduced ejection fraction) Assessment & Plan: This is a recent diagnosis in this patient. This is due to nonischemic cardiomyopathy. We will continue the current guideline directed medical therapy. I have had to adjust some of the medications due to low blood pressures. We have now spaced out the medication due to hypotension. (2) Hyponatremia Assessment & Plan: This could be due to the furosemide and possibly his heart failure in general. A fluid restriction has been ordered by the rehab provider. I will put his furosemide on hold for the time being. (3) Nonischemic cardiomyopathy Assessment & Plan: He has a recently diagnosed nonischemic cardiomyopathy of unknown known etiology. He did have COVID earlier in the year but it was 2 months before he developed his current symptoms so unclear whether or not this could have anything to do with the COVID infection. He underwent a cardiac catheterization at an outside facility that did not show any significant coronary artery disease. As above, his guideline directed medical therapy has all been resumed. He has a prophylactic defibrillator in place which was just implanted on 01/08. (4) Persistent atrial fibrillation Assessment & Plan: This was also a new diagnosis in the patient. He is on apixaban for stroke prophylaxis and amiodarone for rhythm management. At some point in time, we will need to consider whether or not to discontinue the amiodarone. (5) Orthostatic hypotension Assessment & Plan: He has been having some symptomatic low blood pressures most likely due to his medication for the cardiomyopathy and heart failure. I have adjusted his medication and the symptomatic hypotension seems to have improved. As above, I have asked his nurse to stagger his medications to help avoid hypotension. (6) Pulmonary hypertension Assessment & Plan: This is likely due to the acute heart failure. This will need to be followed longitudinally. (7) Nonrheumatic aortic valve stenosis with regurgitation Assessment & Plan: He appears to have at least moderate aortic stenosis by visual inspection on his echocardiogram done here on 01/13. He most likely has low gradients due to the severe cardiomyopathy. This condition will need to be followed longitudinally. (8) Primary hypertension Assessment & Plan: His blood pressures have been running somewhat on the low side. I have adjusted his medication as outlined above (9) Mixed hyperlipidemia Assessment & Plan: Continue simvastatin. (10) Type 2 diabetes mellitus with complication Assessment & Plan: This will be managed by the hospitalist. His Jardiance should be continued. There is good data that this medication is not only effective for diabetes but also helps reduce heart failure admissions. GUERRERO COLE DO January 18, 2022 05:35
[2022-01-18 06:02] LABS: POTASSIUM 4.7 MMOL/L (3.6-5.0)
[2022-01-18 06:07] LABS: CREATININE SERUM 1.57 MG/DL (0.60-1.30)
[2022-01-18] MEDS: KCL 10 MEQ TAB (MICRO K) PO SCH (06:15)
[2022-01-18] MEDS: LEVOTHYROXINE 25 MCG (LEVOTHROID) TAB PO SCH (06:15)
[2022-01-18 07:02] VITALS: BP 98/67
[2022-01-18] MEDS: DOCUSATE SODIUM 100 MG (COLACE) CAP PO SCH ×2 (09:00→21:40)
[2022-01-18] MEDS: SIMvastatin 10 MG (ZOCOR) TAB PO SCH (09:01)
[2022-01-18] MEDS: SENNA W/DOCUSATE (SENOKOT S) TABLET PO SCH ×2 (09:01→21:41)
[2022-01-18] MEDS: LORATADINE (CLARITIN) 10 MG TAB PO SCH (09:01)
[2022-01-18] MEDS: AMIODARONE 200 MG (CORDARONE) TAB PO SCH (09:01)
[2022-01-18] MEDS: polyethylene glycoL POWDER 17 GM (MIRALAX) PACK PO SCH ×2 (09:01→21:40)
[2022-01-18] MEDS: APIXABAN 5 MG (ELIQUIS) TABLET PO SCH ×2 (09:01→20:22)
[2022-01-18] MEDS: ASPIRIN E.C. 81 MG (ECOTRIN) TAB PO SCH (09:02)
[2022-01-18] MEDS: EMPAGLIFLOZIN 10 MG TABLET (JARDIANCE) PO SCH (09:02)
[2022-01-18] MEDS: TAMSULOSIN 0.4 MG (FLOMAX) CAP PO SCH (09:03)
[2022-01-18] MEDS: SACUBITRIL/VALSARTAN 24/26 MG (ENTRESTO) TABLET PO SCH ×2 (09:03→20:23)
[2022-01-18] MEDS: MICONAZOLE 2% POWDER (DESENEX AF) 90 GM TOP SCH ×2 (09:04→20:23)
[2022-01-18 09:05] VITALS: BP 96/61
[2022-01-18] MEDS: FLUTICASONE NASAL SPRAY (FLONASE) 16 GM BTL NS SCH (09:05)
[2022-01-18 12:29] VITALS: BP 85/59
[2022-01-18] MEDS: EPLERONONE 25 MG PO SCH (12:32)
[2022-01-18 19:38] VITALS: BP 96/57
[2022-01-18] MEDS: ZOLPIDEM 5 MG (AMBIEN) TAB PO PRN (20:22)
--- NOTE | 2022-01-19 05:46 | PM&R Progress Note ---
Subjective HPI/CC On Admission Date Seen by Provider: January 19, 2022 Time Seen by Provider: 10:00 Subjective/Events-last exam 01/19/22: Pt is about the same Sodium level was [address] Kramer looking into heart failure treatment with a Milrinone infusion Pt may choose to go on hospice 01/18/2022: Pt doing well Lower extremity edema continues Will monitor sodium level since he is on fluid restriction of 800 cc's daily No SOB 01/17/22: Pt doing about the same Asymptomatic now but sodium is down to 122 from 123, fluid restriction at 800 will be ordered Very complicated issue due to severe cardiomyopathy 01/16/2022: Dr. Lovell will see him for toenails Fluid restriction will continue, sodium level 123 Increased weight gain from water Lungs remain clear Voiding well 01/15/2022: Patient doing really well Voiding well since catheter discontinued Sodium level 126 so I educated him on fluid restriction Dr. Lovell will see you 2 pound weight gain every day Bowels are moving 01/14/22: Pt is doing pretty well Complaining of congestion Flonase will be added to the Claritin I ordered yesterday Bowels moved a few days ago, refusing laxatives Dr. Kramer managing the hypotension Dr. Hendricks had me order discontinuation of the catheter Diflucan maintained for yeast UTI 01/13/2022: Patient doing really well Urology will see him today No pain is reported Seems to be recovering well Hypotension limits giving most cardiac meds 01/12/2022: Dr. Hendricks will see him tomorrow Diflucan maintain for yeast UTI No pain is reported Improving ambulation No falls Blood pressure runs low 01/11/2022: Patient doing well We will consult urology tomorrow Yeast will be treated with Diflucan Awaiting final urine culture Checked meds and labs 01/10/2022: Patient doing well at bedside reviewing meds with nurse Changing out catheter tubing UA sent down will hold off on treatment until culture known Yeast noted so we will start Diflucan Review of Systems General: Fatigue, Malaise Pulmonary: Dyspnea Cardiovascular: Edema Objective Exam Vital Signs Vital Signs Date Time Temp Pulse Resp B/P (MAP) Pulse Ox O2 Delivery O2 Flow Rate FiO2 01/19/22 21:15 36.0 80 20 95/60 (72) 95 Room Air Capillary Refill : General Appearance: No Apparent Distress, WD/WN, Chronically ill, Obese HEENT: PERRL/EOMI, Normal ENT Inspection, Pharynx Normal Neck: Full Range of Motion, Normal Inspection, Non Tender, Supple, Carotid Bruit Respiratory: Chest Non Tender, Lungs Clear, No Accessory Muscle Use, No Respiratory Distress, Decreased Breath Sounds Cardiovascular: No Edema, No Gallop, No JVD, No Murmur, Normal Peripheral Pulses, Irregularly Irregular Gastrointestinal: Normal Bowel Sounds, No Organomegaly, No Pulsatile Mass, Non Tender, Soft Back: Normal Inspection, No CVA Tenderness, No Vertebral Tenderness Extremity: Normal Capillary Refill, Normal Inspection, Normal Range of Motion, Non Tender, No Calf Tenderness, No Pedal Edema Neurologic/Psychiatric: Alert, Oriented x3, No Motor/Sensory Deficits, Normal Mood/Affect Skin: Normal Color, Warm/Dry Lymphatic: No Adenopathy Results/Procedures Lab Patient resulted labs reviewed. FIM Transfers Therapy Code Descriptions/Definitions Functional [place] Measure: 0=Not Assessed/NA 4=Minimal Assistance 1=Total Assistance 5=Supervision or Setup 2=Maximal Assistance 6=Modified [place] 3=Moderate Assistance 7=Complete IndependenceSCALE: Activities may be completed with or without assistive devices. 3-Ugwplygwbz-sgiajfy completes the activity by him/herself with no assistance from a helper. 5-Set-up or Clean-up Assistance-helper sets up or cleans up; patient completes activity. [place] assists only prior to or following the activity. 4-Supervision or Touching Assistance-helper provides verbal cues and/or touching/steadying and/or contact guard assistance as patient completes activity. Assistance may be provided throughout the activity or intermittently. 3-Partial/Moderate Assistance-helper does LESS THAN HALF the effort. [place] lifts, holds or supports trunk or limbs, but provides less than half the effort. 2-Substantial/Maximal Assistance-helper does MORE THAN HALF the effort. [place] lifts or holds trunk or limbs and provides more than half the effort. 8-Lhennuffk-eedqzg does ALL the effort. Patient does none of the effort to complete the activity. Or, the assistance of 2 or more helpers is required for the patient to complete the activity. If activity was not attempted, code reason: 7-Patient Refused. 9-Not Applicable-not attempted and the patient did not perform the activity before the current illness, exacerbation or injury. 10-Not Attempted due to Environmental Limitations-(lack of equipment, weather restraints, etc.). 88-Not Attempted due to Medical Conditions or Safety Concerns. Roll Left to Right (QC): 3 Sit to Lying (QC): 4 Sit to Stand (QC): 4 (with bed raised) Chair/Tlh-hh-Ueibe Xfer(QC): 4 Car Transfer (QC): 2 Gait Training Does the Patient Walk?: Yes Distance: 150' Walk 10 feet (QC): 4 Walk 50 ft with 2 Turns(QC): 4 Walk 150 ft (QC): 4 Walking 10ft/uneven surface-QC: 88 Gait Persons Needed: 1 Gait Assistive Device: FWW Wheelchair Training Does the Pt Use a Wheelchair?: No Wheel 50 ft with 2 turns (QC): 1 Wheel 150 ft (QC): 1 Type of Wheelchair: N/A Stair Training 1 Step (curb) (QC): 88 4 Steps (QC): 88 12 Steps (QC): 88 Balance Picking up an Object (QC): 88 ADL-Treatment Eating (QC): 6 (IND per pt report.) Oral Hygiene (QC): 6 (IND seated at sink) Shower/Bathe Self (QC): 5 (set up at SC) Upper Body Dressing (QC): 5 (set up) Lower Body Dressing (QC): 4 (SBA, cue to use AE for threading RLE. ) On/Off Footwear (QC): 2 (Pt able to doff gripper socks using machinist instructor. assist required to don compression socks and gripper socks.) Toileting Hygiene (QC): 4 (SBA, pt able to manage clothing and wash buttocks in shower) Assessment/Plan Assessment and Plan Assess & Plan/Chief Complaint Assessment: Cardiac debility Nonischemic cardiomyopathy Persistent atrial fibrillation Previous COVID infection Hypoxia BPH Hypothyroidism Diabetes Prostate cancer history Elevated liver enzymes Insomnia Obesity History of acute kidney injury Hyponatremia Yeast UTI Urinary retention requiring Hawkins catheter for 2 weeks now discontinued on 01/14/2022 and voiding well Hyponatremia requiring fluid restriction on 01/15/2022 Plan: Rehab protocol Dr. Kramer consult Supportive care 01/10/22: Monitor closely UTI treatment 01/11/2022: Diflucan Await final urine culture 01/12/2022: Diflucan Urology tomorrow Monitor low blood pressure 01/13/2022: Appreciate urology Appreciate cardiology 01/14/2022: DC catheter Appreciate urology 01/15/2022: Supportive care Voiding well Fluid restriction 01/16/2022: Fluid restriction Supportive care Monitor blood pressure 01/17/22: Monitor closely Fluid restriction 01/18/22: Monitor closely Fluid restriction 01/19/2022: Hospice discussed Does not wish to go on any aggressive cardiac treatment (1) Chronic HFrEF (heart failure with reduced ejection fraction) Assessment & Plan: This is a recent diagnosis in this patient. This is due to nonischemic cardiomyopathy. We will continue the current guideline directed medical therapy. I have had to adjust some of the medications due to low blood pressures. We have now spaced out the medication due to hypotension. (2) Hyponatremia Assessment & Plan: This could be due to the furosemide and possibly his heart failure in general. A fluid restriction has been ordered by the rehab provider. I will put his furosemide on hold for the time being. (3) Nonischemic cardiomyopathy Assessment & Plan: He has a recently diagnosed nonischemic cardiomyopathy of unknown known etiology. He did have COVID earlier in the year but it was 2 months before he developed his current symptoms so unclear whether or not this could have anything to do with the COVID infection. He underwent a cardiac catheterization at an outside facility that did not show any significant coronary artery disease. As above, his guideline directed medical therapy has all been resumed. He has a prophylactic defibrillator in place which was just implanted on 01/08. (4) Persistent atrial fibrillation Assessment & Plan: This was also a new diagnosis in the patient. He is on apixaban for stroke prophylaxis and amiodarone for rhythm management. At some point in time, we will need to consider whether or not to discontinue the amiodarone. (5) Orthostatic hypotension Assessment & Plan: He has been having some symptomatic low blood pressures most likely due to his medication for the cardiomyopathy and heart failure. I have adjusted his medication and the symptomatic hypotension seems to have improved. As above, I have asked his nurse to stagger his medications to help avoid hypotension. (6) Pulmonary hypertension Assessment & Plan: This is likely due to the acute heart failure. This will need to be followed longitudinally. (7) Nonrheumatic aortic valve stenosis with regurgitation Assessment & Plan: He appears to have at least moderate aortic stenosis by visual inspection on his echocardiogram done here on 01/13. He most likely has low gradients due to the severe cardiomyopathy. This condition will need to be followed longitudinally. (8) Primary hypertension Assessment & Plan: His blood pressures have been running somewhat on the low side. I have adjusted his medication as outlined above (9) Mixed hyperlipidemia Assessment & Plan: Continue simvastatin. (10) Type 2 diabetes mellitus with complication Assessment & Plan: This will be managed by the hospitalist. His Jardiance should be continued. There is good data that this medication is not only effective for diabetes but also helps reduce heart failure admissions. GUERRERO COLE DO January 19, 2022 05:46
[2022-01-19 06:21] LABS: BASOPHILS # (AUTO) 0.1 10^3/uL (0.0-0.1); BASOPHILS % (AUTO) 1 % (0-10); EOSINOPHILS # (AUTO) 0.1 10^3/uL (0.0-0.3); EOSINOPHILS % (AUTO) 2 % (0-10); HEMATOCRIT 37 % (40-54); HEMOGLOBIN 12.1 g/dL (13.3-17.7); LYMPHOCYTES # (AUTO) 1.6 10^3/uL (1.0-4.0); LYMPHOCYTES % (AUTO) 30 % (12-44); MEAN CORPUSCULAR HEMOGLOBIN 28 pg (25-34); MEAN CORPUSCULAR HGB CONC 32 g/dL (32-36); MEAN CORPUSCULAR VOLUME 86 fL (80-99); MEAN PLATELET VOLUME 10.9 fL (9.0-12.2); MONOCYTES # (AUTO) 0.5 10^3/uL (0.0-1.0); MONOCYTES % (AUTO) 9 % (0-12); NEUTROPHILS % (AUTO) 58 % (42-75); PLATELET COUNT 309 10^3/uL (130-400); WHITE BLOOD COUNT 5.2 10^3/uL (4.3-11.0)
[2022-01-19 06:35] LABS: ALBUMIN 3.3 GM/DL (3.2-4.5)
[2022-01-19 06:36] LABS: POTASSIUM 4.9 MMOL/L (3.6-5.0)
[2022-01-19 06:37] LABS: CALCIUM 9.3 MG/DL (8.5-10.1)
[2022-01-19] MEDS: LEVOTHYROXINE 25 MCG (LEVOTHROID) TAB PO SCH (06:38)
[2022-01-19] MEDS: KCL 10 MEQ TAB (MICRO K) PO SCH (06:38)
[2022-01-19 06:40] LABS: BILIRUBIN,TOTAL 0.9 MG/DL (0.1-1.0)
[2022-01-19 06:42] LABS: CREATININE SERUM 1.62 MG/DL (0.60-1.30)
[2022-01-19 07:17] VITALS: BP 91/54
[2022-01-19] MEDS: LORATADINE (CLARITIN) 10 MG TAB PO SCH (08:04)
[2022-01-19] MEDS: SENNA W/DOCUSATE (SENOKOT S) TABLET PO SCH ×2 (08:05→21:06)
[2022-01-19] MEDS: TAMSULOSIN 0.4 MG (FLOMAX) CAP PO SCH (08:05)
[2022-01-19] MEDS: EMPAGLIFLOZIN 10 MG TABLET (JARDIANCE) PO SCH (08:06)
[2022-01-19] MEDS: SACUBITRIL/VALSARTAN 24/26 MG (ENTRESTO) TABLET PO SCH ×2 (08:06→21:07)
[2022-01-19] MEDS: DOCUSATE SODIUM 100 MG (COLACE) CAP PO SCH ×2 (08:07→21:06)
[2022-01-19] MEDS: SIMvastatin 10 MG (ZOCOR) TAB PO SCH (08:07)
[2022-01-19] MEDS: MICONAZOLE 2% POWDER (DESENEX AF) 90 GM TOP SCH ×2 (08:07→21:11)
[2022-01-19] MEDS: AMIODARONE 200 MG (CORDARONE) TAB PO SCH (08:07)
[2022-01-19] MEDS: ASPIRIN E.C. 81 MG (ECOTRIN) TAB PO SCH (08:07)
[2022-01-19] MEDS: APIXABAN 5 MG (ELIQUIS) TABLET PO SCH ×2 (08:07→21:06)
[2022-01-19] MEDS: polyethylene glycoL POWDER 17 GM (MIRALAX) PACK PO SCH ×2 (08:08→21:16)
[2022-01-19] MEDS: FLUTICASONE NASAL SPRAY (FLONASE) 16 GM BTL NS SCH (08:09)
[2022-01-19] MEDS ORDERED: FUROSEMIDE 40 MG/4 ML INJ (LASIX) IVP NR (08:30)
--- NOTE | 2022-01-19 08:33 | Cardiology Progress Note ---
Progress Note-Cardiology Events since last exam Date Seen by Provider: January 19, 2022 Time Seen by Provider: 08:29 Events since last exam I am following him due to heart failure. Last week I stopped his oral Lasix due to hyponatremia. Since that point time, he has been gaining weight and his peripheral edema has gotten worse. His breathing is the same. He denies chest pain, palpitations, or syncope. He continues to work with physical therapy. Certain portions of this document may have been dictated utilizing voice recognition technology. Inherent to this technology, typographical and grammatical errors may exist. As much as I am diligent to identify and correct these mistakes, some errors may remain in the document. Vitals Last set of Vitals Signs Vital Signs 01/19/22 07:17 Temp 35.2 Pulse 87 Resp 18 B/P (MAP) 91/54 (66) Pulse Ox 93 O2 Delivery Room Air Labs Labs Laboratory Tests 01/19/22 05:23 Exam Vital Signs Vital Signs Date Time Temp Pulse Resp B/P (MAP) Pulse Ox O2 Delivery O2 Flow Rate FiO2 01/19/22 07:17 35.2 87 18 91/54 (66) 93 Room Air Physical Exam General: Alert. No acute distress. Eye: No xanthelasma. HENT: Normocephalic. Neck: Jugular venous pressure does not appear elevated. Respiratory: Lungs are clear to auscultation. Respirations are non-labored. Breath sounds are equal. Symmetrical chest wall expansion. Cardiovascular: Normal rate. Regular rhythm. 1/6 systolic ejection murmur. No gallop. 2+ bilateral pretibial edema, worse on the left. Gastrointestinal: Soft. Normal bowel sounds. Skin: Warm. Dry. Neurologic: Alert and oriented to person, place, time. Cranial nerves 3-11 grossly intact. Psychiatric: Cooperative. Appropriate mood & affect. Labs Laboratory Tests Test 01/19/22 05:23 Range/Units White Blood Count 5.2 4.3-11.0 10^3/uL Red Blood Count 4.34 4.30-5.52 10^6/uL Hemoglobin 12.1 L 13.3-17.7 g/dL Hematocrit 37 L 40-54 % Mean Corpuscular Volume 86 80-99 fL Mean Corpuscular Hemoglobin 28 25-34 pg Mean Corpuscular Hemoglobin Concent 32 32-36 g/dL Red Cell Distribution Width 18.7 H 10.0-14.5 % Platelet Count 309 130-400 10^3/uL Mean Platelet Volume 10.9 9.0-12.2 fL Immature Granulocyte % (Auto) 0 % Neutrophils (%) (Auto) 58 42-75 % Lymphocytes (%) (Auto) 30 12-44 % Monocytes (%) (Auto) 9 0-12 % Eosinophils (%) (Auto) 2 0-10 % Basophils (%) (Auto) 1 0-10 % Neutrophils # (Auto) 3.0 1.8-7.8 10^3/uL Lymphocytes # (Auto) 1.6 1.0-4.0 10^3/uL Monocytes # (Auto) 0.5 0.0-1.0 10^3/uL Eosinophils # (Auto) 0.1 0.0-0.3 10^3/uL Basophils # (Auto) 0.1 0.0-0.1 10^3/uL Immature Granulocyte # (Auto) 0.0 0.0-0.1 10^3/uL Sodium Level 123 *L 135-145 MMOL/L Potassium Level 4.9 3.6-5.0 MMOL/L Chloride Level 88 L 98-107 MMOL/L Carbon Dioxide Level 22 21-32 MMOL/L Anion Gap 13 5-14 MMOL/L Blood Urea Nitrogen 22 H 7-18 MG/DL Creatinine 1.62 H 0.60-1.30 MG/DL Estimat Glomerular Filtration Rate 45 BUN/Creatinine Ratio 14 Glucose Level 130 H 70-105 MG/DL Calcium Level 9.3 8.5-10.1 MG/DL Corrected Calcium 9.9 8.5-10.1 MG/DL Total Bilirubin 0.9 0.1-1.0 MG/DL Aspartate Amino Transf (AST/SGOT) 19 5-34 U/L Alanine Aminotransferase (ALT/SGPT) 18 0-55 U/L Alkaline Phosphatase 98 40-136 U/L Total Protein 6.0 L 6.4-8.2 GM/DL Albumin 3.3 3.2-4.5 GM/DL Diagnosis/Problems Diagnosis/Problems (1) Chronic HFrEF (heart failure with reduced ejection fraction) Assessment & Plan: This is a recent diagnosis in this patient. This is due to nonischemic cardiomyopathy. We will continue the current guideline directed medical therapy. I have had to adjust some of the medications due to low blood pressures. We have now spaced out the medication due to hypotension. I will give him 1 dose of intravenous furosemide today and resume oral furosemide tomorrow. Unfortunately, his blood pressures have been running quite low. I discussed the possibility of transferring him back to [facility] and [place], [place]. He said he does not want to go back to that hospital at this point in time. (2) Hyponatremia Assessment & Plan: This could be due to the furosemide and possibly his heart failure in general. A fluid restriction has been ordered by the rehab provider. I will furosemide due to volume retention. (3) Nonischemic cardiomyopathy Assessment & Plan: He has a recently diagnosed nonischemic cardiomyopathy of unknown known etiology. He did have COVID earlier in the year but it was 2 months before he developed his current symptoms so unclear whether or not this could have anything to do with the COVID infection. He underwent a cardiac catheterization at an outside facility that did not show any significant coronary artery disease. As above, his guideline directed medical therapy has all been resumed. He has a prophylactic defibrillator in place which was just implanted on 01/08. (4) Acute kidney injury superimposed on chronic kidney disease Assessment & Plan: His renal function has gotten worse despite stopping furosemide. This could be due to renal venous hypertension related to volume overload. We will see how he responds to resuming furosemide. (5) Persistent atrial fibrillation Assessment & Plan: This was also a new diagnosis in the patient. He is on apixaban for stroke prophylaxis and amiodarone for rhythm management. At some point in time, we will need to consider whether or not to discontinue the amiodarone. (6) Orthostatic hypotension Assessment & Plan: He has been having some symptomatic low blood pressures most likely due to his medication for the cardiomyopathy and heart failure. I have adjusted his medication and the symptomatic hypotension seems to have improved. As above, I have asked his nurse to stagger his medications to help avoid hypotension. (7) Pulmonary hypertension Assessment & Plan: This is likely due to the acute heart failure. This will need to be followed longitudinally. (8) Nonrheumatic aortic valve stenosis with regurgitation Assessment & Plan: He appears to have at least moderate aortic stenosis by visual inspection on his echocardiogram done here on 5/10. He most likely has low gradients due to the severe cardiomyopathy. This condition will need to be followed longitudinally. (9) Primary hypertension Assessment & Plan: His blood pressures have been running somewhat on the low side. I have adjusted his medication as outlined above (10) Mixed hyperlipidemia Assessment & Plan: Continue simvastatin. (11) Type 2 diabetes mellitus with complication Assessment & Plan: This will be managed by the hospitalist. His Jardiance should be continued. There is good data that this medication is not only effective for diabetes but also helps reduce heart failure admissions. LAILA RAMOS JR, MD January 19, 2022 08:33
--- NOTE | 2022-01-19 09:07 | Physical Therapy Daily Note ---
PT Daily Note-Current Subjective Pt sitting in recliner upon arrival. Pt agrees to PT. Nurse giving morning meds. Pt reports congestion in both ears. Pain Location: No Pain Reported Mental Status Patient Orientation: Person, Place, Time, Situation Transfers SCALE: Activities may be completed with or without assistive devices. 2-Hzkudyqnwg-dxurlnl completes the activity by him/herself with no assistance from a helper. 5-Set-up or Clean-up Assistance-helper sets up or cleans up; patient completes activity. [place] assists only prior to or following the activity. 4-Supervision or Touching Assistance-helper provides verbal cues and/or touching/steadying and/or contact guard assistance as patient completes activity. Assistance may be provided throughout the activity or intermittently. 3-Partial/Moderate Assistance-helper does LESS THAN HALF the effort. [place] lifts, holds or supports trunk or limbs, but provides less than half the effort. 2-Substantial/Maximal Assistance-helper does MORE THAN HALF the effort. [place] lifts or holds trunk or limbs and provides more than half the effort. 2-Ejlqnqyfr-jreasj does ALL the effort. Patient does none of the effort to complete the activity. Or, the assistance of 2 or more helpers is required for the patient to complete the activity. If activity was not attempted, code reason: 7-Patient Refused. 9-Not Applicable-not attempted and the patient did not perform the activity before the current illness, exacerbation or injury. 10-Not Attempted due to Environmental Limitations-(lack of equipment, weather restraints, etc.). 88-Not Attempted due to Medical Conditions or Safety Concerns. Roll Left & Right (QC): 5 Sit to Lying (QC): 5 Lying to Sitting/Side of Bed(Q: 5 Sit to Stand (QC): 5 Chair/Kzy-re-Jgwzt Xfer(QC): 5 Toilet Transfer (QC): 5 Car Transfer (QC): 5 Weight Bearing Right Lower Extremity: Right Full Weight Bearing Left Lower Extremity: Left Full Weight Bearing Gait Training Does the Patient Walk?: Yes Distance: 150' Walk 10 feet (QC): 5 Walk 50 ft with 2 Turns(QC): 5 Walk 150 ft (QC): 5 Walking 10ft/uneven surface-QC: 5 Gait Persons Needed: 0 Gait Assistive Device: FWW Wheelchair Training Does the Pt Use a Wheelchair?: No Stair Training Stair Training: Handrails/: 2 handrails #of Steps: 4 1 Step (curb) (QC): 5 4 Steps (QC): 5 12 Steps (QC): 7 Stairs: Pattern: Step to Pt reports only having 2 steps at home so declines more steps. Pt takes RB as fatigued. Pt needs VC to watch toe clearing for safety. Balance Picking up an Object (QC): 5 Special Test Comments Using plate colorer which pt has at home Exercises NuStep Minutes: 15 NuStep Workload: 3 Treatments TF to standing and completes QC scoring items listed above. Pt uses NuStep and returns to room at end of tx. All needs met, call light in hand. Assessment Current Status: Fair Progress Pt demonstrates more fatigue today and needs VC to lift B LE higher when completing steps to prevent toe catching on stair. Pt demonstrates increased swelling/pitting. Cargo Vessel Stewardess checks on pt and will start IV lactic. PT Short Term Goals Short Term Goals Time Frame: January 16, 2022 Roll Left & Right: 4 Sit to lyin (CGA) Lying to sitting on side of be: 4 (CGA) Sit to stand: 3 Chair/zoy-mh-hbqww transfer: 3 Toilet transfer: 3 Car transfer: 3 Walk 10 feet: 4 (CGA) Walk 50 feet with two turns: 3 Walk 150 feet: 3 Walking 10ft on uneven surface: 3 1 step (curb): 4 PT Demi Chef Goals Assisted Goals PT Assisted Goals Time Frame: January 30, 2022 Roll Left & Right (QC): 6 Sit to Lying (QC): 4 (SBA) Lying-Sitting on Side/Bed(QC): 4 (SBA) Sit to Stand (QC): 4 (CGA) Chair/Ubn-la-Yqoax Xfer(QC): 4 (CGA) Toilet Transfer (QC): 4 (CGA) Car Transfer (QC): 4 (CGA) Does the Patient Walk: Yes Walk 10 feet (QC): 4 (SBA) Walk 50ft with 2 Turns (QC): 4 (CGA) Walk 150 ft (QC): 4 (CGA) Walking 10ft on Uneven Surface: 4 (CGA) 1 Step (curb) (QC): 4 (CGA) 4 Steps (QC): 88 12 Steps (QC): 88 Picking up an Object (QC): 4 (CGA with plate colorer) Does the Pt use WC or Scooter?: No Wheel 50 feet with 2 turns (QC: 9 Type: N/A Wheel 150 feet: 9 Type: N/A PT Plan Problem List Problem List: Activity Tolerance, Functional Strength Treatment/Plan Treatment Plan: Continue Plan of Care Treatment Plan: Bed Mobility, Education, Functional Activity Saul, Functional Strength, Group Therapy, Gait, Safety, Therapeutic Exercise, Transfers Treatment Duration: January 30, 2022 Frequency: At least 5 of 7 days/Wk (IRF) Estimated Hrs Per Day: 1.5 hours per day Patient and/or Family Agrees t: Yes Safety Risks/Education Patient Education: Transfer Techniques, Steps Teaching Recipient: Patient Teaching Methods: Discussion Response to Teaching: Verbalize Understanding Time/GCodes Time In: 800 Time Out: 900 Total Billed Treatment Time: 60 Total Billed Treatment 1, GT (15m), EX (15m) & FA x2 (30m) MADYSON SVAAGE RAILROAD ENGINEER January 19, 2022 09:06
--- NOTE | 2022-01-19 09:47 | Occupational Ther Daily Note ---
OT Current Status-Daily Note Subjective Pt up in recliner, agreeable to OT Tx. ADL-Treatment Therapy Code Descriptions/Definitions Functional [place] Measure: 0=Not Assessed/NA 4=Minimal Assistance 1=Total Assistance 5=Supervision or Setup 2=Maximal Assistance 6=Modified [place] 3=Moderate Assistance 7=Complete IndependenceSCALE: Activities may be completed with or without assistive devices. 3-Fjsgsoylwe-tswvhfl completes the activity by him/herself with no assistance from a helper. 5-Set-up or Clean-up Assistance-helper sets up or cleans up; patient completes activity. [place] assists only prior to or following the activity. 4-Supervision or Touching Assistance-helper provides verbal cues and/or touching/steadying and/or contact guard assistance as patient completes activity. Assistance may be provided throughout the activity or intermittently. 3-Partial/Moderate Assistance-helper does LESS THAN HALF the effort. [place] lifts, holds or supports trunk or limbs, but provides less than half the effort. 2-Substantial/Maximal Assistance-helper does MORE THAN HALF the effort. [place] lifts or holds trunk or limbs and provides more than half the effort. 3-Wedilrizq-ckkvwl does ALL the effort. Patient does none of the effort to co mplete the activity. Or, the assistance of 2 or more helpers is required for the patient to complete the activity. If activity was not attempted, code reason: 7-Patient Refused. 9-Not Applicable-not attempted and the patient did not perform the activity before the current illness, exacerbation or injury. 10-Not Attempted due to Environmental Limitations-(lack of equipment, weather restraints, etc.). 88-Not Attempted due to Medical Conditions or Safety Concerns. Eating (QC): 6 Oral Hygiene (QC): 6 Shower/Bathe Self (QC): 5 (set up at UT) Upper Body Dressing (QC): 5 (set up ) Lower Body Dressing (QC): 3 (Min A with threading LEs into pants, CGA in stand. ) On/Off Footwear: 2 (Pt able to doff gripper socks, assist to don gripper socks and compression socks.) Toileting Hygiene (QC): 4 (CGA in stand.) Other Treatment Pt up in recliner, used FWW into bathroom and onto UT with SBA. Pt sat at UT to doff clothes, complete shower, then transferred to chair outside shower to get dressed. As pt stood to perform pant hike, he had LOB falling back into the chair, OT attempted to assist pt to regain his balance, but pt sat abruptly into chair. Pt uncertain why he had LOB. Pt sat at sink to complete grooming tasks independently. Pt used FWW to return to recliner, CGA. Post tx, pt in recliner, call light in reach and all needs met. Education OT Patient Education: Correct positioning, Energy conservation, Modified ADL techniques, Progress toward Goal/Update tx plan, Purpose of tx/functional activities, Rehab process Teaching Recipient: Patient Teaching Methods: Discussion Response to Teaching: Verbalize Understanding OT Short Term Goals Short Term Goals Time Frame: January 17, 2022 Eatin Oral hygiene: 6 Toileting hygiene: 4 Shower/bathe self: 3 Upper body dressin Lower body dressin Putting on/taking off footwear: 3 OT Intermediate Goals Intermediate Goals Time Frame: January 24, 2022 Eating (QC): 6 (met) Oral Hygiene (QC): 6 (met) Toileting Hygiene (QC): 6 (not met) Shower/Bathe Self (QC): 5 (met) Upper Body Dressing (QC): 6 (not met) Lower Body Dressing (QC): 5 (not met.) On/Off Footwear (QC): 5 (not met.) Additional Goals: 1-Demonstrate ADL Tasks, 2-Verbalize Understanding, 3- ImproveStrength/Saul 1=Demonstrate adherence to instructed precautions during ADL tasks. 2=Patient will verbalize/demonstrate understanding of assistive devices/modifications for ADL. 3=Patient will improve strength/tolerance for activity to enable patient to perform ADL's. OT Education/Plan Problem List/Assessment Assessment: Decreased Activ Tolerance, Decreased UE Strength, Impaired Funct Balance, Impaired I ADL's, Impaired Self-Care Skills Discharge Recommendations Plan/Recommendations: Continue POC Treatment Plan/Plan of Care Patient would benefit from OT for education, treatment and training to promote independence in ADL's, mobility, safety and/or upper extremity function for ADL's. Plan of Care: ADL Retraining, Functional Mobility Treatment Duration: January 10, 2022 Frequency: Modified Program (IRF) Estimated Hrs Per Day: Other Agreement: Yes Rehab Potential: Good Time/GCodes Start Time: 09:00 Stop Time: 10:00 Total Time Billed (hr/min): 60 Billed Treatment Time 1. ADL 4 MINOR DAVENPORT OT January 19, 2022 09:47
--- NOTE | 2022-01-19 10:13 | Wound Care Assessment ---
Wound Care Assessment Date Seen by Provider: January 19, 2022 Time Seen by Provider: 10:07 Chief Complaint Left great toe wound HPI Pleasant 71 year old male admitted to hospital with severe ischemic cardiomyopathy with significant lower extremity edema and hyponatremia with bilateral tinea pedis infection and new ulceration of left great toe. Patient notes that he sees podiatry as an outpatient for regular foot care but since being admitted has increase in flaking which caused new ulceration. He does have DM2 but he reports adequate control as outpatient. His hyponatremia is being managed with a fluid restriction. He is currently having his wound dressed with xeroform. Due to his underlying fungal infection we will change to a more dry dressing and treat his tinea with miconazole powder. Past Medical History: Admits Diabetes Type II, Admits Heart Disease Severe ischemic cardiomyopathy (class 3 heart failure), Lower extremity edema, atrial fibrillation with anticoagulation and new implanted defibrillator. Smoking Status: Former Smoker Alcohol Use: Occasionally Uses Exam Vital Signs Date Time Temp Pulse Resp B/P (MAP) Pulse Ox O2 Delivery O2 Flow Rate FiO2 01/19/22 08:20 Room Air 01/19/22 07:17 35.2 87 18 91/54 (66) 93 Capillary Refill : General Appearance: WD/WN, no apparent distress Respiratory: no respiratory distress, no accessory muscle use Extremities: normal range of motion, non-tender, pedal edema Neurologic/Psychiatric: alert, normal mood/affect, oriented x 3 Skin: normal color, warm/dry, damp (feet with moisture bilaterally) Skin Problem Location: other (bilateral feet) Skin Character: rash (bilateral feet with tinea pedis) L. great toe: 1.5x1.0x0.1cm. The epithelialization is none, there is no tunneling or undermining, drainage is medium and serous, granulation is large and pink, necrotic is none, there is maceration in the periwound. There is a flaking rash with significant moisture injury between webs of all toes bilaterally c/w tinea pedis infection Results Laboratory Tests 01/19/22 05:23: White Blood Count 5.2, Red Blood Count 4.34, Hemoglobin 12.1L, Hematocrit 37L, Mean Corpuscular Volume 86, Mean Corpuscular Hemoglobin 28, Mean Corpuscular Hemoglobin Concent 32, Red Cell Distribution Width 18.7H, Platelet Count 309, Mean Platelet Volume 10.9, Immature Granulocyte % (Auto) 0, Neutrophils (%) (Auto) 58, Lymphocytes (%) (Auto) 30, Monocytes (%) (Auto) 9, Eosinophils (%) (Auto) 2, Basophils (%) (Auto) 1, Neutrophils # (Auto) 3.0, Lymphocytes # (Auto) 1.6, Monocytes # (Auto) 0.5, Eosinophils # (Auto) 0.1, Basophils # (Auto) 0.1, Immature Granulocyte # (Auto) 0.0, Sodium Level 123*L, Potassium Level 4.9, Chloride Level 88L, Carbon Dioxide Level 22, Anion Gap 13, Blood Urea Nitrogen 22H, Creatinine 1.62H, Estimat Glomerular Filtration Rate 45, BUN/Creatinine Ratio 14, Glucose Level 130H, Calcium Level 9.3, Corrected Calcium 9.9, Total Bilirubin 0.9, Aspartate Amino Transf (AST/SGOT) 19, Alanine Aminotransferase (ALT/SGPT) 18, Alkaline Phosphatase 98, Total Protein 6.0L, Albumin 3.3 Microbiology 01/10/22 Urine Culture - Final, Complete YEAST Assessment/Plan/Dx Assessment: 1. L. great toe ulceration with underlying DM2 2. Tinea pedis b/l LE 3. CHF 4. LE edema 5. Hyponatremia Plan: 1. Wash feet daily with soap and water. Apply miconazole powder liberally to b/l feet (leave open to air when not ambulating), silver alginate HF to ulcer and change daily. Will need counseling on bleaching shower upon d/c and OTC Athlete's foot spray to shoes upon d/c home. Good glycemic control indicated. 2. See above 3. Defer to primary team 5. Defer to primary team 6. Defer to primary team Thank you for this consult. Please call if further questions CUCO CARRASCO MD January 19, 2022 10:13
[2022-01-19] MEDS ORDERED: CATHETER FLUSH 10 ML SYR IVP PRN (12:00)
--- NOTE | 2022-01-19 12:03 | Occupational Ther Daily Note ---
OT Current Status-Daily Note Subjective Pt up in recliner, agreeable to cotreatment. ADL-Treatment Therapy Code Descriptions/Definitions Functional [place] Measure: 0=Not Assessed/NA 4=Minimal Assistance 1=Total Assistance 5=Supervision or Setup 2=Maximal Assistance 6=Modified [place] 3=Moderate Assistance 7=Complete IndependenceSCALE: Activities may be completed with or without assistive devices. 6-Ktpkxokuxb-yncqcpj completes the activity by him/herself with no assistance from a helper. 5-Set-up or Clean-up Assistance-helper sets up or cleans up; patient completes activity. [place] assists only prior to or following the activity. 4-Supervision or Touching Assistance-helper provides verbal cues and/or touching/steadying and/or contact guard assistance as patient completes activity. Assistance may be provided throughout the activity or intermittently. 3-Partial/Moderate Assistance-helper does LESS THAN HALF the effort. [place] lifts, holds or supports trunk or limbs, but provides less than half the effort. 2-Substantial/Maximal Assistance-helper does MORE THAN HALF the effort. [place] lifts or holds trunk or limbs and provides more than half the effort. 4-Vcahefghg-vzprbh does ALL the effort. Patient does none of the effort to complete the activity. Or, the assistance of 2 or more helpers is required for the patient to complete the activity. If activity was not attempted, code reason: 7-Patient Refused. 9-Not Applicable-not attempted and the patient did not perform the activity before the current illness, exacerbation or injury. 10-Not Attempted due to Environmental Limitations-(lack of equipment, weather restraints, etc.). 88-Not Attempted due to Medical Conditions or Safety Concerns. Other Treatment OT/PT cotreat due to skill of 2 clinicians required which a clinical rehabilitation liaison could not perform in order to coordinate UE/LEs, decrease fall risk and focus on higher level balance tasks. OT focused on UE placement, cues for sequencing and safety while PT focused on LE placement, dynamic standing balance, and transfers/mobility. Pt used FWW to go to therapy gym, SBA. Pt completed 3 rounds of balloon batting with OT as PT focused on balance, seated rest breaks between rounds, SBA throughout task. Pt able to use BUE to reach for balloon in all planes, 1 LOB at end of task when pt leaned backwards, sitting abruptly onto therapy mat. Pt returned to room using FWW, SBA, transferring to recliner.Post tx, pt in recliner, call light in reach and all needs met. Education OT Patient Education: Correct positioning, Energy conservation, Modified ADL techniques, Progress toward Goal/Update tx plan, Purpose of tx/functional activities, Reviewed precautions, Rehab process Teaching Recipient: Patient Teaching Methods: Demonstration, Discussion Response to Teaching: Verbalize Understanding, Return Demonstration OT Short Term Goals Short Term Goals Time Frame: January 17, 2022 Eatin Oral hygiene: 6 Toileting hygiene: 4 Shower/bathe self: 3 Upper body dressin Lower body dressin Putting on/taking off footwear: 3 OT Mcc Goals Log Grader Goals Time Frame: January 24, 2022 Eating (QC): 6 (met) Oral Hygiene (QC): 6 (met) Toileting Hygiene (QC): 6 (not met) Shower/Bathe Self (QC): 5 (met) Upper Body Dressing (QC): 6 (not met) Lower Body Dressing (QC): 5 (not met.) On/Off Footwear (QC): 5 (not met.) Additional Goals: 1-Demonstrate ADL Tasks, 2-Verbalize Understanding, 3- ImproveStrength/Saul 1=Demonstrate adherence to instructed precautions during ADL tasks. 2=Patient will verbalize/demonstrate understanding of assistive devices/modifications for ADL. 3=Patient will improve strength/tolerance for activity to enable patient to perform ADL's. OT Education/Plan Problem List/Assessment Assessment: Decreased Activ Tolerance, Decreased UE Strength, Impaired Funct Balance, Impaired I ADL's, Impaired Self-Care Skills, Restricted Funct UE ROM Discharge Recommendations Plan/Recommendations: Continue POC Treatment Plan/Plan of Care Patient would benefit from OT for education, treatment and training to promote i ndependence in ADL's, mobility, safety and/or upper extremity function for ADL's. Plan of Care: ADL Retraining, Functional Mobility Treatment Duration: January 10, 2022 Frequency: Modified Program (IRF) Estimated Hrs Per Day: Other Agreement: Yes Rehab Potential: Good Time/GCodes Start Time: 11:20 Stop Time: 11:50 Total Time Billed (hr/min): 30 Billed Treatment Time 1, ADL 2 MINOR DAVENPORT OT January 19, 2022 12:03
[2022-01-19] MEDS: EPLERONONE 25 MG PO SCH (12:09)
--- NOTE | 2022-01-19 12:09 | Progress Note ---
JAH REDDY 01/19/22 1209: Progress Note Subjective: HPI: The patient was sitting in his chair this morning and shaving in the bathroom. He was doing well and denied any acute events overnight. The patient feels like his rehabilitation is going well. He denies chest pains. He is not having any nausea or vomiting. ROS: Constitutional: no fevers, no chills EENTM: no vision changes Respiratory: dyspnea on exertion Cardiovascular: no chest pains, no palpations, bilateral peripheral edema of both lower extremities Gastrointestinal: no nausea, no vomiting Skin: no symptoms reported Psychiatric/Neurological: no anxiety, no depression Objective: Vitals: T: 35.2 C, HR: 87 BPM, RR: 18, BP: 91/54, 93% on Room air PE: General Appearance: No Apparent Distress, WD/WN, Chronically ill, Obese Eyes: Bilateral Eye Normal Inspection, Bilateral Eye PERRL HEENT: PERRL/EOMI, mucous membranes moist Neck: Full Range of Motion, Normal Inspection Respiratory: Chest Non Tender, Lungs Clear, No Accessory Muscle Use, No Respiratory Distress, Decreased Breath Sounds Cardiovascular: Edema of both lower extremities, No Gallop, No JVD, No Murmur, Normal Peripheral Pulses, Irregularly Irregular Gastrointestinal: Normal Bowel Sounds, No Organomegaly, No Pulsatile Mass, Non Tender, Soft Extremity: Normal Capillary Refill, Normal Inspection, Normal Range of Motion, Non Tender, No Calf Tenderness, Pedal Edema Neurologic/Psychiatric: Alert, Oriented x3, No Motor/Sensory Deficits, Normal Mood/Affect Skin: Normal Color, Warm/Dry Assessment: Debility secondary to CHF Nonischemic cardiomyopathy Persistent atrial fibrillation Hyponatremia Hx of COVID infection Hypoxia BPH Hypothyroidism Diabetes Hx of Prostate cancer Elevated liver enzymes Insomnia Obesity Hx of acute kidney injury Plan: Debility secondary to CHF Nonischemic cardiomyopathy Persistent atrial fibrillation Hyponatremia Hypoxia Hx of acute kidney injury The patient will continue with his inpatient rehabilitation as planned. Cardiology following, appreciate their recommendations. We will continue to monitor for worsening signs of heart failure and treat PRN. Hyponatremia secondary to his CHF, continue to monitor sodium. Monitor renal function. Continue with fluid restriction. Continue Eliquis for anticoagulation. Hx of COVID infection BPH Hypothyroidism Diabetes Hx of Prostate cancer Elevated liver enzymes Insomnia Obesity We will continue his home medications. Recommended weight loss. SAMANTA COLE DO 01/20/22 0520: Supervisory-Addendum Brief Verification & Attestation Participated in pt care: history, MDM, physical Personally performed: exam, history, MDM, supervision of care Care discussed with: Medical Student Procedures: n/a Results interpretation: Verified all documentation Verification and Attestation of Medical Student E/M Service A medical student performed and documented this service in my presence. I reviewed and verified all information documented by the medical student and made modifications to such information, when appropriate. I personally performed the physical exam and medical decision making. Samanta Cole, January 20, 2022,05:20 JAH REDDY January 19, 2022 12:09 SAMANTA COLE DO January 20, 2022 05:20
--- NOTE | 2022-01-19 13:14 | Physical Therapy Daily Note ---
PT Daily Note-Current Subjective Pt sitting in recliner upon arrival. Pt agrees to PT/OT co-treat. Pain Location: No Pain Reported Mental Status Patient Orientation: Person, Place, Situation Transfers SCALE: Activities may be completed with or without assistive devices. 5-Smsucnkkgs-dqrbayk completes the activity by him/herself with no assistance from a helper. 5-Set-up or Clean-up Assistance-helper sets up or cleans up; patient completes activity. [place] assists only prior to or following the activity. 4-Supervision or Touching Assistance-helper provides verbal cues and/or touching/steadying and/or contact guard assistance as patient completes activity. Assistance may be provided throughout the activity or intermittently. 3-Partial/Moderate Assistance-helper does LESS THAN HALF the effort. [place] lifts, holds or supports trunk or limbs, but provides less than half the effort. 2-Substantial/Maximal Assistance-helper does MORE THAN HALF the effort. [place] lifts or holds trunk or limbs and provides more than half the effort. 7-Cjienvzfa-ouoezx does ALL the effort. Patient does none of the effort to com plete the activity. Or, the assistance of 2 or more helpers is required for the patient to complete the activity. If activity was not attempted, code reason: 7-Patient Refused. 9-Not Applicable-not attempted and the patient did not perform the activity before the current illness, exacerbation or injury. 10-Not Attempted due to Environmental Limitations-(lack of equipment, weather restraints, etc.). 88-Not Attempted due to Medical Conditions or Safety Concerns. Sit to Stand (QC): 5 Weight Bearing Right Lower Extremity: Right Full Weight Bearing Left Lower Extremity: Left Full Weight Bearing Gait Training Does the Patient Walk?: Yes Distance: 100' x2 Walk 10 feet (QC): 5 Walk 50 ft with 2 Turns(QC): 5 Gait Persons Needed: 1 Treatments OT/PT cotreat due to skill of 2 clinicians required which a digital field service technician could not perform in order to coordinate UE/LEs, decrease fall risk and focus on higher level balance tasks. OT focused on UE placement, cues for sequencing and safety while PT focused on LE placement, dynamic standing balance, and transf ers/mobility. Pt used FWW to go to therapy gym, SBA. Pt completed 3 rounds of balloon batting with OT as PT focused on balance, seated rest breaks between rounds, SBA throughout task. Pt able to use BUE to reach for balloon in all planes, 1 LOB at end of task when pt leaned backwards, sitting abruptly onto therapy mat. Pt returned to room using FWW, SBA, transferring to recliner.Post tx, pt in recliner, call light in reach and all needs met. Assessment Current Status: Fair Progress Pt demonstrates increased sluggishness and difficulty with activity tolerance. PT Short Term Goals Short Term Goals Time Frame: January 16, 2022 Roll Left & Right: 4 Sit to lyin (CGA) Lying to sitting on side of be: 4 (CGA) Sit to stand: 3 Chair/ypf-aw-lzdib transfer: 3 Toilet transfer: 3 Car transfer: 3 Walk 10 feet: 4 (CGA) Walk 50 feet with two turns: 3 Walk 150 feet: 3 Walking 10ft on uneven surface: 3 1 step (curb): 4 PT Pleat Taper Goals Pleat Taper Goals PT Pleat Taper Goals Time Frame: January 30, 2022 Roll Left & Right (QC): 6 Sit to Lying (QC): 4 (SBA) Lying-Sitting on Side/Bed(QC): 4 (SBA) Sit to Stand (QC): 4 (CGA) Chair/Mlq-ne-Bmfmk Xfer(QC): 4 (CGA) Toilet Transfer (QC): 4 (CGA) Car Transfer (QC): 4 (CGA) Does the Patient Walk: Yes Walk 10 feet (QC): 4 (SBA) Walk 50ft with 2 Turns (QC): 4 (CGA) Walk 150 ft (QC): 4 (CGA) Walking 10ft on Uneven Surface: 4 (CGA) 1 Step (curb) (QC): 4 (CGA) 4 Steps (QC): 88 12 Steps (QC): 88 Picking up an Object (QC): 4 (CGA with measurement psychologist) Does the Pt use WC or Scooter?: No Wheel 50 feet with 2 turns (QC: 9 Type: N/A Wheel 150 feet: 9 Type: N/A PT Plan Problem List Problem List: Activity Tolerance, Functional Strength, Balance Treatment/Plan Treatment Plan: Continue Plan of Care Treatment Plan: Bed Mobility, Education, Functional Activity Saul, Functional Strength, Group Therapy, Gait, Safety, Therapeutic Exercise, Transfers Treatment Duration: January 30, 2022 Frequency: At least 5 of 7 days/Wk (IRF) Estimated Hrs Per Day: 1.5 hours per day Patient and/or Family Agrees t: Yes Safety Risks/Education Patient Education: Transfer Techniques, Correct Positioning, Safety Issues Teaching Recipient: Patient Teaching Methods: Discussion Response to Teaching: Verbalize Understanding Time/GCodes Time In: 1120 Time Out: 1150 Total Billed Treatment Time: 30 Total Billed Treatment 1, GT (10m) & FA (20m) Co-treat w/OT for 30m MADYSON SAVAGE [employer] January 19, 2022 13:14
[2022-01-19] MEDS: CATHETER FLUSH 10 ML SYR IVP SCH ×2 (13:49→22:16)
[2022-01-19 20:08] VITALS: BP 91/64
[2022-01-19] MEDS: ACETAMINOPHEN 325 MG TABLET PO PRN (21:07)
[2022-01-19 21:15] VITALS: BP 95/60
--- NOTE | 2022-01-20 05:59 | PM&R Progress Note ---
Subjective HPI/CC On Admission Date Seen by Provider: January 20, 2022 Time Seen by Provider: 10:00 Subjective/Events-last exam 01/20/2022: Discharge planned Hospice versus [facility] 01/19/22: Pt is about the same Sodium level was [address] Kramer looking into heart failure treatment with a Milrinone infusion Pt may choose to go on hospice 01/18/2022: Pt doing well Lower extremity edema continues Will monitor sodium level since he is on fluid restriction of 800 cc's daily No SOB 01/17/22: Pt doing about the same Asymptomatic now but sodium is down to 122 from 123, fluid restriction at 800 will be ordered Very complicated issue due to severe cardiomyopathy 01/16/2022: Dr. Lovell will see him for toenails Fluid restriction will continue, sodium level 123 Increased weight gain from water Lungs remain clear Voiding well 01/15/2022: Patient doing really well Voiding well since catheter discontinued Sodium level 126 so I educated him on fluid restriction Dr. Lovell will see you 2 pound weight gain every day Bowels are moving 01/14/22: Pt is doing pretty well Complaining of congestion Flonase will be added to the Claritin I ordered yesterday Bowels moved a few days ago, refusing laxatives Dr. Kramer managing the hypotension Dr. Hendricks had me order discontinuation of the catheter Diflucan maintained for yeast UTI 01/13/2022: Patient doing really well Urology will see him today No pain is reported Seems to be recovering well Hypotension limits giving most cardiac meds 01/12/2022: Dr. Hendricks will see him tomorrow Diflucan maintain for yeast UTI No pain is reported Improving ambulation No falls Blood pressure runs low 01/11/2022: Patient doing well We will consult urology tomorrow Yeast will be treated with Diflucan Awaiting final urine culture Checked meds and labs 01/10/2022: Patient doing well at bedside reviewing meds with nurse Changing out catheter tubing UA sent down will hold off on treatment until culture known Yeast noted so we will start Diflucan Review of Systems General: Fatigue, Malaise Cardiovascular: Edema Objective Exam Vital Signs Vital Signs Date Time Temp Pulse Resp B/P (MAP) Pulse Ox O2 Delivery O2 Flow Rate FiO2 5/17/22 11:40 36.0 89 18 90/57 99 Room Air Capillary Refill : General Appearance: No Apparent Distress, WD/WN, Chronically ill, Obese HEENT: PERRL/EOMI, Normal ENT Inspection, Pharynx Normal Neck: Full Range of Motion, Normal Inspection, Non Tender, Supple, Carotid Bruit Respiratory: Chest Non Tender, Lungs Clear, No Accessory Muscle Use, No Respiratory Distress, Decreased Breath Sounds Cardiovascular: No Edema, No Gallop, No JVD, No Murmur, Normal Peripheral Pulses, Irregularly Irregular Gastrointestinal: Normal Bowel Sounds, No Organomegaly, No Pulsatile Mass, Non Tender, Soft Back: Normal Inspection, No CVA Tenderness, No Vertebral Tenderness Extremity: Normal Capillary Refill, Normal Inspection, Normal Range of Motion, Non Tender, No Calf Tenderness, No Pedal Edema Neurologic/Psychiatric: Alert, Oriented x3, No Motor/Sensory Deficits, Normal Mood/Affect Skin: Normal Color, Warm/Dry Lymphatic: No Adenopathy Results/Procedures Lab Patient resulted labs reviewed. FIM Transfers Therapy Code Descriptions/Definitions Functional [place] Measure: 0=Not Assessed/NA 4=Minimal Assistance 1=Total Assistance 5=Supervision or Setup 2=Maximal Assistance 6=Modified [place] 3=Moderate Assistance 7=Complete IndependenceSCALE: Activities may be completed with or without assistive devices. 6-Faloneurwn-mhesdhu completes the activity by him/herself with no assistance from a helper. 5-Set-up or Clean-up Assistance-helper sets up or cleans up; patient completes activity. [place] assists only prior to or following the activity. 4-Supervision or Touching Assistance-helper provides verbal cues and/or touching/steadying and/or contact guard assistance as patient completes activity. Assistance may be provided throughout the activity or intermittently. 3-Partial/Moderate Assistance-helper does LESS THAN HALF the effort. [place] lifts, holds or supports trunk or limbs, but provides less than half the effort. 2-Substantial/Maximal Assistance-helper does MORE THAN HALF the effort. [place] lifts or holds trunk or limbs and provides more than half the effort. 7-Nmwhsqnum-ffexsn does ALL the effort. Patient does none of the effort to complete the activity. Or, the assistance of 2 or more helpers is required for the patient to complete the activity. If activity was not attempted, code reason: 7-Patient Refused. 9-Not Applicable-not attempted and the patient did not perform the activity before the current illness, exacerbation or injury. 10-Not Attempted due to Environmental Limitations-(lack of equipment, weather restraints, etc.). 88-Not Attempted due to Medical Conditions or Safety Concerns. Roll Left to Right (QC): 5 Sit to Lying (QC): 5 Sit to Stand (QC): 5 Chair/Ddc-dw-Rpeug Xfer(QC): 5 Car Transfer (QC): 5 Gait Training Does the Patient Walk?: Yes Distance: 100' x2 Walk 10 feet (QC): 5 Walk 50 ft with 2 Turns(QC): 5 Walk 150 ft (QC): 5 Walking 10ft/uneven surface-QC: 5 Gait Persons Needed: 1 Gait Assistive Device: FWW Wheelchair Training Does the Pt Use a Wheelchair?: No Wheel 50 ft with 2 turns (QC): 1 Wheel 150 ft (QC): 1 Type of Wheelchair: N/A Stair Training Stair Training: Handrails/: 2 handrails #of Steps: 4 1 Step (curb) (QC): 5 4 Steps (QC): 5 12 Steps (QC): 7 Stairs: Pattern: Step to Balance Picking up an Object (QC): 5 ADL-Treatment Eating (QC): 6 Oral Hygiene (QC): 6 Shower/Bathe Self (QC): 5 (set up at SC) Upper Body Dressing (QC): 5 (set up ) Lower Body Dressing (QC): 3 (Min A with threading LEs into pants, CGA in stand. ) On/Off Footwear (QC): 2 (Pt able to doff gripper socks, assist to don gripper socks and compression socks.) Toileting Hygiene (QC): 4 (CGA in stand.) Assessment/Plan Assessment and Plan Assess & Plan/Chief Complaint Assessment: Cardiac debility Nonischemic cardiomyopathy Persistent atrial fibrillation Previous COVID infection Hypoxia BPH Hypothyroidism Diabetes Prostate cancer history Elevated liver enzymes Insomnia Obesity History of acute kidney injury Hyponatremia Yeast UTI Urinary retention requiring Hawkins catheter for 2 weeks now discontinued on 01/14/2022 and voiding well Hyponatremia requiring fluid restriction on 01/15/2022 Plan: Rehab protocol Dr. Kramer consult Supportive care 01/10/22: Monitor closely UTI treatment 01/11/2022: Diflucan Await final urine culture 01/12/2022: Diflucan Urology tomorrow Monitor low blood pressure 01/13/2022: Appreciate urology Appreciate cardiology 01/14/2022: DC catheter Appreciate urology 01/15/2022: Supportive care Voiding well Fluid restriction 01/16/2022: Fluid restriction Supportive care Monitor blood pressure 01/17/22: Monitor closely Fluid restriction 01/18/22: Monitor closely Fluid restriction 01/19/2022: Hospice discussed Does not wish to go on any aggressive cardiac treatment 01/20/2022: Hospice versus [facility] (1) Chronic HFrEF (heart failure with reduced ejection fraction) Assessment & Plan: This is a recent diagnosis in this patient. This is due to nonischemic cardiomyopathy. We will continue the current guideline directed medical therapy. I have had to adjust some of the medications due to low blood pressures. We have now spaced out the medication due to hypotension. I will give him 1 dose of intravenous furosemide today and resume oral furosemide tomorrow. Unfortunately, his blood pressures have been running quite low. I discussed the possibility of transferring him back to [facility] and [place], [place]. He said he does not want to go back to that hospital at this point in time. (2) Hyponatremia Assessment & Plan: This could be due to the furosemide and possibly his heart failure in general. A fluid restriction has been ordered by the rehab provider. I will furosemide due to volume retention. (3) Nonischemic cardiomyopathy Assessment & Plan: He has a recently diagnosed nonischemic cardiomyopathy of unknown known etiology. He did have COVID earlier in the year but it was 2 months before he developed his current symptoms so unclear whether or not this could have anything to do with the COVID infection. He underwent a cardiac catheterization at an outside facility that did not show any significant coronary artery disease. As above, his guideline directed medical therapy has all been resumed. He has a prophylactic defibrillator in place which was just implanted on 01/08. (4) Acute kidney injury superimposed on chronic kidney disease Assessment & Plan: His renal function has gotten worse despite stopping furosemide. This could be due to renal venous hypertension related to volume overload. We will see how he responds to resuming furosemide. (5) Persistent atrial fibrillation Assessment & Plan: This was also a new diagnosis in the patient. He is on apixaban for stroke prophylaxis and amiodarone for rhythm management. At some point in time, we will need to consider whether or not to discontinue the amiodarone. (6) Orthostatic hypotension Assessment & Plan: He has been having some symptomatic low blood pressures most likely due to his medication for the cardiomyopathy and heart failure. I have adjusted his medication and the symptomatic hypotension seems to have improved. As above, I have asked his nurse to stagger his medications to help avoid hypotension. (7) Pulmonary hypertension Assessment & Plan: This is likely due to the acute heart failure. This will need to be followed longitudinally. (8) Nonrheumatic aortic valve stenosis with regurgitation Assessment & Plan: He appears to have at least moderate aortic stenosis by visual inspection on his echocardiogram done here on 01/13. He most likely has low gradients due to the severe cardiomyopathy. This condition will need to be followed longitudinally. (9) Primary hypertension Assessment & Plan: His blood pressures have been running somewhat on the low side. I have adjusted his medication as outlined above (10) Mixed hyperlipidemia Assessment & Plan: Continue simvastatin. (11) Type 2 diabetes mellitus with complication Assessment & Plan: This will be managed by the hospitalist. His Jardiance should be continued. There is good data that this medication is not only effective for diabetes but also helps reduce heart failure admissions. GUERRERO COLE DO January 20, 2022 05:59
[2022-01-20 06:09] LABS: CALCIUM 9.3 MG/DL (8.5-10.1); CREATININE SERUM 2.05 MG/DL (0.60-1.30); POTASSIUM 5.3 MMOL/L (3.6-5.0)
[2022-01-20] MEDS: LEVOTHYROXINE 25 MCG (LEVOTHROID) TAB PO SCH (06:26)
[2022-01-20] MEDS: KCL 10 MEQ TAB (MICRO K) PO SCH (06:26)
[2022-01-20] MEDS: CATHETER FLUSH 10 ML SYR IVP SCH (06:27)
[2022-01-20 07:33] VITALS: BP 90/57
[2022-01-20] MEDS: SIMvastatin 10 MG (ZOCOR) TAB PO SCH (08:51)
[2022-01-20] MEDS: APIXABAN 5 MG (ELIQUIS) TABLET PO SCH (08:51)
[2022-01-20] MEDS: TAMSULOSIN 0.4 MG (FLOMAX) CAP PO SCH (08:51)
[2022-01-20] MEDS: SACUBITRIL/VALSARTAN 24/26 MG (ENTRESTO) TABLET PO SCH (08:51)
[2022-01-20] MEDS: ASPIRIN E.C. 81 MG (ECOTRIN) TAB PO SCH (08:51)
[2022-01-20] MEDS: EMPAGLIFLOZIN 10 MG TABLET (JARDIANCE) PO SCH (08:52)
[2022-01-20] MEDS: LORATADINE (CLARITIN) 10 MG TAB PO SCH (08:52)
[2022-01-20] MEDS: AMIODARONE 200 MG (CORDARONE) TAB PO SCH (08:52)
[2022-01-20] MEDS: FLUTICASONE NASAL SPRAY (FLONASE) 16 GM BTL NS SCH (08:59)
[2022-01-20] MEDS ORDERED: FUROSEMIDE 40 MG (LASIX) TAB PO SCH (09:00)
[2022-01-20] MEDS: MICONAZOLE 2% POWDER (DESENEX AF) 90 GM TOP SCH (09:00)
[2022-01-20] MEDS: SENNA W/DOCUSATE (SENOKOT S) TABLET PO SCH (09:00)
[2022-01-20] MEDS: polyethylene glycoL POWDER 17 GM (MIRALAX) PACK PO SCH (09:00)
[2022-01-20] MEDS: DOCUSATE SODIUM 100 MG (COLACE) CAP PO SCH (09:00)
--- NOTE | 2022-01-20 09:08 | Cardiology Progress Note ---
Progress Note-Cardiology Events since last exam Date Seen by Provider: January 20, 2022 Time Seen by Provider: 09:06 Events since last exam I am following him for heart failure with reduced ejection fraction in the s etting of newly diagnosed severe cardiomyopathy and moderate to severe aortic stenosis. He continues to have hypotensive issues but denies lightheadedness or syncope. His peripheral edema is slightly worse today. He continues to work with physical therapy on the inpatient physical rehabilitation unit and has some dyspnea on exertion but is still able to do the physical therapy. He denies chest pain or palpitations. I spoke to the patient and his at the bedside and he is not quite ready to go on hospice but would like to go home and consider whether or not he wants to go back to [facility] in [place], [place]. Certain portions of this document may have been dictated utilizing voice recognition technology. Inherent to this technology, typographical and grammatical errors may exist. As much as I am diligent to identify and correct these mistakes, some errors may remain in the document. Vitals Last set of Vitals Signs Vital Signs 01/20/22 07:33 Temp 36.0 Pulse 89 Resp 18 B/P (MAP) 90/57 (68) Pulse Ox 99 O2 Delivery Room Air Labs Labs Laboratory Tests 01/20/22 05:17 Exam Vital Signs Vital Signs Date Time Temp Pulse Resp B/P (MAP) Pulse Ox O2 Delivery O2 Flow Rate FiO2 01/20/22 07:33 36.0 89 18 90/57 (68) 99 Room Air Physical Exam General: Alert. No acute distress. Eye: No xanthelasma. HENT: Normocephalic. Neck: Jugular venous pressure does not appear elevated. Respiratory: Lungs are clear to auscultation but decreased at the bases bilaterally. Respirations are non-labored. Breath sounds are equal. Symmetrical chest wall expansion. Cardiovascular: Normal rate. Regular rhythm. 1/6 systolic ejection murmur. No gallop. 2+ bilateral pretibial edema slightly worse on the left. Gastrointestinal: Soft. Normal bowel sounds. Skin: Warm. Dry. Neurologic: Alert and oriented to person, place, time. Cranial nerves 3-11 grossly intact. Psychiatric: Cooperative. Appropriate mood & affect. Labs Laboratory Tests Test 01/20/22 05:17 Range/Units Sodium Level 123 *L 135-145 MMOL/L Potassium Level 5.3 H 3.6-5.0 MMOL/L Chloride Level 88 L 98-107 MMOL/L Carbon Dioxide Level 22 21-32 MMOL/L Anion Gap 13 5-14 MMOL/L Blood Urea Nitrogen 25 H 7-18 MG/DL Creatinine 2.05 H 0.60-1.30 MG/DL Estimat Glomerular Filtration Rate 34 BUN/Creatinine Ratio 12 Glucose Level 124 H 70-105 MG/DL Calcium Level 9.3 8.5-10.1 MG/DL Diagnosis/Problems Diagnosis/Problems (1) Chronic HFrEF (heart failure with reduced ejection fraction) Assessment & Plan: This is a recent diagnosis in this patient. This is due to nonischemic cardiomyopathy. We will continue the current guideline directed medical therapy. I have had to adjust some of the medications due to low blood pressures. We have now spaced out the medication due to hypotension. I will give him 1 dose of intravenous furosemide today and resume oral furosemide tomorrow. Unfortunately, his blood pressures have been running quite low. I discussed the possibility of transferring him back to [facility] in [place], [place]. He said he does not want to go back to that hospital at this point in time. He has not been home in almost 3 months and he wants to go home at least for a few days. I would suggest he be discharged on the current combination of medications as is. I have asked him and his to call [facility] advanced heart failure clinic today and attempt to get an appointment by this Wednesday. If he has trouble getting an appointment this quickly, I have asked him to contact my office and I will contact [facility] personally and get him an urgent appointment. (2) Nonrheumatic aortic valve stenosis with regurgitation Assessment & Plan: He appears to have at least moderate aortic stenosis by visual inspection on his echocardiogram done here on 01/13. He most likely has low gradients due to the severe cardiomyopathy. This may be contributing to his hypotension and the difficulty we are having with giving him the appropriate guideline directed medical therapy for the cardiomyopathy and heart failure. (3) Nonischemic cardiomyopathy Assessment & Plan: He has a recently diagnosed nonischemic cardiomyopathy of unknown known etiology. He did have COVID earlier in the year but it was 2 months before he developed his current symptoms so unclear whether or not this could have anything to do with the COVID infection. He underwent a cardiac catheterization at an outside facility that did not show any significant coronary artery disease. As above, his guideline directed medical therapy has all been resumed. He has a prophylactic defibrillator in place which was just implanted on 01/08. (4) Hyponatremia Assessment & Plan: This could be due to the furosemide and possibly his heart failure in general. A fluid restriction has been ordered by the rehab provider. I resumed the furosemide due to worsening volume retention. (5) Acute kidney injury superimposed on chronic kidney disease Assessment & Plan: His renal function had gotten worse despite stopping furosemide. This could be due to renal venous hypertension related to volume overload or he may be developing cardiorenal syndrome. I gave him 1 dose of intravenous furosemide on 01/19 and today his renal function is worse. This is a poor prognostic indicator. I believe his best chance at getting this turned around would be to transfer to [facility] in [place], [place] to the advanced heart failure team or a similar institution with an advanced heart failure program. As above, he wants to hold off on this. On the other hand, he is not quite ready to go on comfort care. (6) Persistent atrial fibrillation Assessment & Plan: This was also a new diagnosis in the patient. He is on apixaban for stroke prophylaxis and amiodarone for rhythm management. At some point in time, we will need to consider whether or not to discontinue the amiodarone. (7) Orthostatic hypotension Assessment & Plan: He has been having some symptomatic low blood pressures most likely due to his medication for the cardiomyopathy and heart failure. I have adjusted his medication and the symptomatic hypotension seems to have improved over the past couple of days has again developed. As above, I have asked his nurse to stagger his medications to help avoid hypotension. (8) Pulmonary hypertension Assessment & Plan: This is likely due to the acute heart failure. This will need to be followed longitudinally. (9) Primary hypertension Assessment & Plan: His blood pressures have been running somewhat on the low side. I have adjusted his medication as outlined above (10) Mixed hyperlipidemia Assessment & Plan: Continue simvastatin. (11) Type 2 diabetes mellitus with complication Assessment & Plan: This will be managed by the hospitalist. His Jardiance should be continued. There is good data that this medication is not only effective for diabetes but also helps reduce heart failure admissions. LAILA RAMOS JR, MD January 20, 2022 09:08
[2022-01-20] MEDS: ACETAMINOPHEN 325 MG TABLET PO PRN (09:56)
--- NOTE | 2022-01-20 10:17 | Therapy Team Discharge Summary ---
Therapy Discharge Summary Discharge Recommendations Date of Discharge Therapy D/C Recommendations: Occupational Therapy Home Care Physical Therapy Roll Left to Right (QC): 5 Sit to Lying (QC): 5 Lying to Sitting/Side of Bed(Q: 5 Sit to Stand (QC): 5 Chair/Nof-xj-Lmqan Xfer(QC): 5 Toilet Transfer (QC): 4 Car Transfer (QC): 5 Does the Patient Walk: Yes Mode of Locomotion: Walk Anticipated Mode of Locomotion: Walk Walk 10 feet (QC): 5 Walk 50 ft with 2 Turns(QC): 5 Walk 150 ft (QC): 5 Walking 10ft on uneven surface: 5 Distance: 15' Gait Assistive Device: FWW Does the Pt Use a Wheelchair: No Wheel 50 ft with 2 turns (QC): 1 Wheel 150 ft (QC): 1 Type of Wheelchair: N/A #of Steps: 4 1 Step (curb) (QC): 5 4 Steps (QC): 5 12 Steps (QC): 7 Balance Sitting Static: Good Balance Sitting Dynamic: Fair Balance-Standing Static: Poor Picking up an Object (QC): 5 Occupational Therapy Pt admitted to ARU with acute decompensated heart failure, s/p defibrillator placement. At [facility], pt was independent with ADLs and functional mobility. Upon initial evaluation, pt was independent with eating, set up oral care, mod A showering, SBA UE dressing, mod A LE dressing, max A footwear and max A toileting. OT tx focused on increasing BUE strength and activity tolerance and increasing safety and independence with ADLs. Pt made functional progress towards goals, but only attained LTGs for eating, oral care, and showering. Pt to d/c home with , d/c from OT. OT recommendations include home health OT. Decreased Activ Tolerance, Decreased UE Strength, Impaired Funct Balance, Impaired I ADL's, Impaired Self-Care Skills, Restricted Funct UE ROM Eating (QC): 6 Oral Hygiene (QC): 6 Shower/Bathe Self (QC): 5 (set up at SC) Upper Body Dressing (QC): 5 (set up ) Lower Body Dressing (QC): 3 (Min A with threading LEs into pants, CGA in stand. ) On/Off Footwear (QC): 2 (Pt able to doff gripper socks, assist to don gripper socks and compression socks.) Toileting Hygiene (QC): 4 (CGA in stand.) PT Crew Foreman Goals [facility] Goals PT [facility] Goals Time Frame: January 30, 2022 Roll Left to Right (QC): 6 Sit to Lying (QC): 4 (SBA) Lying-Sitting on Side/Bed(QC): 4 (SBA) Sit to Stand (QC): 4 (CGA) Chair/Eut-xo-Qwmvt Xfer(QC): 4 (CGA) Car Transfer (QC): 4 (CGA) Does the Patient Walk: Yes Walk 10 feet (QC): 4 (SBA) Walk 10ft-Uneven Surface(QC): 4 (CGA) Walk 50ft with 2 Turns (QC): 4 (CGA) Walk 150 ft (QC): 4 (CGA) Does the Pt use WC or Scooter?: No Wheel 50 feet with 2 turns (QC: 9 1 Step (curb) (QC): 4 (CGA) 4 Steps (QC): 88 12 Steps (QC): 88 Picking up an Object (QC): 4 (CGA with data management specialist) OT Crew Foreman Goals Crew Foreman Goals Time Frame: January 24, 2022 Eating (QC): 6 (met) Oral Hygiene (QC): 6 (met) Shower/Bathe Self (QC): 5 (met) Upper Body Dressing (QC): 6 (not met) Lower Body Dressing (QC): 5 (not met.) On/Off Footwear (QC): 5 (not met.) Toileting Hygiene (QC): 6 (not met) Toilet/Commode Transfer (QC): 4 (CGA) Additional Goals: 1-Demonstrate ADL Tasks, 2-Verbalize Understanding, 3- ImproveStrength/Saul 1=Demonstrate adherence to instructed precautions during ADL tasks. 2=Patient will verbalize/demonstrate understanding of assistive devices/modifications for ADL. 3=Patient will improve strength/tolerance for activity to enable patient to perform ADL's. MINOR DAVENPORT OT January 20, 2022 10:17
[2022-01-20] MEDS ORDERED: FURO40TA4 PO (10:39)
[2022-01-20] MEDS ORDERED: AMIO200T65 PO (10:39)
[2022-01-20] MEDS ORDERED: ASPI-1238 PO (10:39)
[2022-01-20] MEDS ORDERED: MTP25TSR PO (10:39)
[2022-01-20] MEDS ORDERED: EMPA10TA PO (10:39)
[2022-01-20] MEDS ORDERED: TMSL.4C PO (10:39)
[2022-01-20] MEDS ORDERED: EPLE25TA PO (10:39)
[2022-01-20] MEDS ORDERED: APIX5TAB PO (10:39)
[2022-01-20] MEDS ORDERED: TRM50T PO (10:39)
[2022-01-20] MEDS ORDERED: SACU1TAB2 PO (10:39)
[2022-01-20] MEDS ORDERED: LEVO25TA5 PO (10:39)
[2022-01-20] MEDS ORDERED: MICO90PO TOP (10:39)
[2022-01-20] MEDS ORDERED: SIMV80TA21 PO (10:39)
[2022-01-20] MEDS ORDERED: METH-731 PO (10:39)
[2022-01-20] MEDS ORDERED: CYCL10TA25 PO (10:39)
--- NOTE | 2022-01-20 10:42 | Discharge Summary ---
Diagnosis/Chief Complaint Date of Admission January 09, 2022 at 15:05 Date of Discharge Discharge Date: January 20, 2022 Discharge Diagnosis Assessment: Cardiac debility Nonischemic cardiomyopathy Persistent atrial fibrillation Previous COVID infection Hypoxia BPH Hypothyroidism Diabetes Prostate cancer history Elevated liver enzymes Insomnia Obesity History of acute kidney injury Hyponatremia Yeast UTI Urinary retention requiring Hawkins catheter for 2 weeks now discontinued on 01/14/2022 and voiding well Hyponatremia requiring fluid restriction on 01/15/2022 Plan: Rehab protocol Dr. Kramer consult Supportive care 01/10/22: Monitor closely UTI treatment 01/11/2022: Diflucan Await final urine culture 01/12/2022: Diflucan Urology tomorrow Monitor low blood pressure 01/13/2022: Appreciate urology Appreciate cardiology 01/14/2022: DC catheter Appreciate urology 01/15/2022: Supportive care Voiding well Fluid restriction 01/16/2022: Fluid restriction Supportive care Monitor blood pressure 01/17/22: Monitor closely Fluid restriction 01/18/22: Monitor closely Fluid restriction 01/19/2022: Hospice discussed Does not wish to go on any aggressive cardiac treatment (1) Chronic HFrEF (heart failure with reduced ejection fraction) Assessment & Plan: This is a recent diagnosis in this patient. This is due to nonischemic cardiomyopathy. We will continue the current guideline directed medical therapy. I have had to adjust some of the medications due to low blood pressures. We have now spaced out the medication due to hypotension. (2) Hyponatremia Assessment & Plan: This could be due to the furosemide and possibly his heart failure in general. A fluid restriction has been ordered by the rehab provider. I will put his furosemide on hold for the time being. (3) Nonischemic cardiomyopathy Assessment & Plan: He has a recently diagnosed nonischemic cardiomyopathy of unknown known etiology. He did have COVID earlier in the year but it was 2 mo nths before he developed his current symptoms so unclear whether or not this could have anything to do with the COVID infection. He underwent a cardiac catheterization at an outside facility that did not show any significant coronary artery disease. As above, his guideline directed medical therapy has all been resumed. He has a prophylactic defibrillator in place which was just implanted on 01/08. (4) Persistent atrial fibrillation Assessment & Plan: This was also a new diagnosis in the patient. He is on apixaban for stroke prophylaxis and amiodarone for rhythm management. At some point in time, we will need to consider whether or not to discontinue the amiodarone. (5) Orthostatic hypotension Assessment & Plan: He has been having some symptomatic low blood pressures most likely due to his medication for the cardiomyopathy and heart failure. I have adjusted his medication and the symptomatic hypotension seems to have improved. As above, I have asked his nurse to stagger his medications to help avoid hypotension. (6) Pulmonary hypertension Assessment & Plan: This is likely due to the acute heart failure. This will need to be followed longitudinally. (7) Nonrheumatic aortic valve stenosis with regurgitation Assessment & Plan: He appears to have at least moderate aortic stenosis by visual inspection on his echocardiogram done here on 01/13. He most likely has low gradients due to the severe cardiomyopathy. This condition will need to be followed longitudinally. (8) Primary hypertension Assessment & Plan: His blood pressures have been running somewhat on the low side. I have adjusted his medication as outlined above (9) Mixed hyperlipidemia Assessment & Plan: Continue simvastatin. (10) Type 2 diabetes mellitus with complication Assessment & Plan: This will be managed by the hospitalist. His Jardiance should be continued. There is good data that this medication is not only effective for diabetes but also helps reduce heart failure admissions. Discharge Summary Discharge Physical Examination Allergies: Coded Allergies: No Allergy Information Available (Unverified , 01/09/22) Vitals & I&Os Vital Signs Date Time Temp Pulse Resp B/P (MAP) Pulse Ox O2 Delivery O2 Flow Rate FiO2 01/20/22 11:40 36.0 89 18 90/57 99 Room Air General Appearance: Alert, Oriented X3, Cooperative Respiratory: Clear to Auscultation Cardiovascular: Regular Rate Neuro: Normal Gait, Normal Speech, Strength at 5/5 X4 Ext Psych/Mental Status: Mental Status NL Hospital Course Was the Problem List Reviewed?: Yes Pt had a lengthy hospital course for 12 days after he was admitted from CHF management, ejection fraction of 10%, post Covid. Dr. Kramer did initiate a lot of medication changes. Which seemed to help but sodium level resulted back to 123. Creatinine started to rise and the decision was made to enroll in hospice. He will do that at time of discharge. Overall his vitals remain stable. He will have close follow up with Dr. [place]. Labs (last 24 hrs) Laboratory Tests 01/09/22 15:05: Lab Scanned Report Referred Lab Report 01/09/22 16:59: Glucometer 154H 01/09/22 20:27: Glucometer 154H 01/10/22 06:00: Glucometer 125H 01/10/22 06:05: White Blood Count 6.6, Red Blood Count 4.05L, Hemoglobin 11.4L, Hematocrit 35L, Mean Corpuscular Volume 87, Mean Corpuscular Hemoglobin 28, Mean Corpuscular Hemoglobin Concent 33, Red Cell Distribution Width 18.0H, Platelet Count 265, Mean Platelet Volume 10.5, Immature Granulocyte % (Auto) 1, Neutrophils (%) (Auto) 60, Lymphocytes (%) (Auto) 26, Monocytes (%) (Auto) 9, Eosinophils (%) (Auto) 3, Basophils (%) (Auto) 2, Neutrophils # (Auto) 4.0, Lymphocytes # (Auto) 1.7, Monocytes # (Auto) 0.6, Eosinophils # (Auto) 0.2, Basophils # (Auto) 0.1, Immature Granulocyte # (Auto) 0.0, Sodium Level 134L, Potassium Level 3.4L, Chloride Level 100, Carbon Dioxide Level 21, Anion Gap 13, Blood Urea Nitrogen 11, Creatinine 1.02, Estimat Glomerular Filtration Rate 78, BUN/Creatinine Ratio 11, Glucose Level 131H, Calcium Level 8.7, Corrected Calcium 9.3, Total Bilirubin 1.1H, Aspartate Amino Transf (AST/SGOT) 14, Alanine Aminotransferase (ALT/SGPT) 18, Alkaline Phosphatase 96, Total Protein 6.1L, Albumin 3.2, Triglycerides Level 100, Cholesterol Level 118, LDL Cholesterol Direct 62, VLDL Cholesterol 20, HDL Cholesterol 35L 01/10/22 11:08: Glucometer 129H 01/10/22 15:10: Urine Color YELLOW, Urine Clarity CLOUDY, Urine pH 5.5, Urine Specific Lewis 1.015L, Urine Protein 2+H, Urine Glucose (UA) 3+H, Urine Ketones TRACEH, Urine Nitrite NEGATIVE, Urine Bilirubin 1+H, Urine Urobilinogen 1.0, Urine Leukocyte Esterase 2+H, Urine RBC (Auto) 3+H, Urine RBC 10-25H, Urine WBC 25-50H, Urine Crystals NONE, Urine Bacteria FEWH, Urine Casts NONE, Urine Mucus NEGATIVE, Urine Yeast LARGEH, Urine Culture Indicated YES 01/10/22 15:16: Glucometer 131H 01/10/22 20:13: Glucometer 130H 01/11/22 06:53: Glucometer 120H 01/11/22 10:53: Glucometer 116H 01/11/22 15:38: Glucometer 134H 01/11/22 20:14: Glucometer 134H 01/12/22 05:08: Sodium Level 132L, Potassium Level 3.6, Chloride Level 97L, Carbon Dioxide Level 17L, Anion Gap 18H, Blood Urea Nitrogen 18, Creatinine 1.17, Estimat Glomerular Filtration Rate 66, BUN/Creatinine Ratio 15, Glucose Level 120H, Calcium Level 8.7 01/12/22 05:33: Glucometer 121H 01/15/22 07:13: Sodium Level 126L, Potassium Level 4.3, Chloride Level 90L, Carbon Dioxide Level 21, Anion Gap 15H, Blood Urea Nitrogen 20H, Creatinine 1.36H, Estimat Glomerular Filtration Rate 55, BUN/Creatinine Ratio 15, Glucose Level 123H, Calcium Level 9.3, White Blood Count 6.9, Red Blood Count 4.39, Hemoglobin 12.1L, Hematocrit 37L, Mean Corpuscular Volume 85, Mean Corpuscular Hemoglobin 28, Mean Corpuscular Hemoglobin Concent 32, Red Cell Distribution Width 17.7H, Platelet Count 300, Mean Platelet Volume 10.7, Immature Granulocyte % (Auto) 1, Neutrophils (%) (Auto) 62, Lymphocytes (%) (Auto) 28, Monocytes (%) (Auto) 7, Eosinophils (%) (Auto) 2, Basophils (%) (Auto) 1, Neutrophils # (Auto) 4.3, Lymphocytes # (Auto) 1.9, Monocytes # (Auto) 0.5, Eosinophils # (Auto) 0.1, Basophils # (Auto) 0.1, Immature Granulocyte # (Auto) 0.0, Corrected Calcium 9.8, Total Bilirubin 1.1H, Aspartate Amino Transf (AST/SGOT) 17, Alanine Aminotransferase (ALT/SGPT) 15, Alkaline Phosphatase 101, Total Protein 6.3L, Albumin 3.4 01/16/22 05:00: Sodium Level 123*L, Potassium Level 4.6, Chloride Level 90L, Carbon Dioxide Level 19L, Anion Gap 14, Blood Urea Nitrogen 21H, Creatinine 1.47H, Estimat Glomerular Filtration Rate 50, BUN/Creatinine Ratio 14, Glucose Level 114H, Calcium Level 9.2 01/17/22 05:06: Sodium Level 122*L, Potassium Level 4.6, Chloride Level 89L, Carbon Dioxide Level 19L, Anion Gap 14, Blood Urea Nitrogen 21H, Creatinine 1.37H, Estimat Glomerular Filtration Rate 55, BUN/Creatinine Ratio 15, Glucose Level 102, Calcium Level 8.8 01/18/22 05:15: Sodium Level 123*L, Potassium Level 4.7, Chloride Level 89L, Carbon Dioxide Level 21, Anion Gap 13, Blood Urea Nitrogen 22H, Creatinine 1.57H, Estimat Glomerular Filtration Rate 47, BUN/Creatinine Ratio 14, Glucose Level 125H, Calcium Level 9.0 01/19/22 05:23: Sodium Level 123*L, Potassium Level 4.9, Chloride Level 88L, Carbon Dioxide Level 22, Anion Gap 13, Blood Urea Nitrogen 22H, Creatinine 1.62H, Estimat Glomerular Filtration Rate 45, BUN/Creatinine Ratio 14, Glucose Level 130H, Calcium Level 9.3, White Blood Count 5.2, Red Blood Count 4.34, Hemoglobin 12.1L , Hematocrit 37L, Mean Corpuscular Volume 86, Mean Corpuscular Hemoglobin 28, Mean Corpuscular Hemoglobin Concent 32, Red Cell Distribution Width 18.7H, Platelet Count 309, Mean Platelet Volume 10.9, Immature Granulocyte % (Auto) 0, Neutrophils (%) (Auto) 58, Lymphocytes (%) (Auto) 30, Monocytes (%) (Auto) 9, Eosinophils (%) (Auto) 2, Basophils (%) (Auto) 1, Neutrophils # (Auto) 3.0, Lymphocytes # (Auto) 1.6, Monocytes # (Auto) 0.5, Eosinophils # (Auto) 0.1, Basophils # (Auto) 0.1, Immature Granulocyte # (Auto) 0.0, Corrected Calcium 9.9, Total Bilirubin 0.9, Aspartate Amino Transf (AST/SGOT) 19, Alanine Aminotransferase (ALT/SGPT) 18, Alkaline Phosphatase 98, Total Protein 6.0L, Albumin 3.3 01/20/22 05:17: Sodium Level 123*L, Potassium Level 5.3H, Chloride Level 88L, Carbon Dioxide Level 22, Anion Gap 13, Blood Urea Nitrogen 25H, Creatinine 2.05H, Estimat Glomerular Filtration Rate 34, BUN/Creatinine Ratio 12, Glucose Level 124H, Calcium Level 9.3 Microbiology 01/10/22 Urine Culture - Final, Complete YEAST Pending Labs Microbiology Date/Time Source Procedure Growth Status 01/10/22 15:10 Urine U Cath,Nos Urine Culture - Final YEAST Complete Laboratory Tests 01/09/22 15:05: Lab Scanned Report Referred Lab Report 01/09/22 16:59: Glucometer 154 01/09/22 20:27: Glucometer 154 01/10/22 06:00: Glucometer 125 01/10/22 06:05: White Blood Count 6.6, Red Blood Count 4.05, Hemoglobin 11.4, Hematocrit 35, Mean Corpuscular Volume 87, Mean Corpuscular Hemoglobin 28, Mean Corpuscular Hemoglobin Concent 33, Red Cell Distribution Width 18.0, Platelet Count 265, Mean Platelet Volume 10.5, Immature Granulocyte % (Auto) 1, Neutrophils (%) (Auto) 60, Lymphocytes (%) (Auto) 26, Monocytes (%) (Auto) 9, Eosinophils (%) (Auto) 3, Basophils (%) (Auto) 2, Neutrophils # (Auto) 4.0, Lymphocytes # (Auto) 1.7, Monocytes # (Auto) 0.6, Eosinophils # (Auto) 0.2, Basophils # (Auto) 0.1, Immature Granulocyte # (Auto) 0.0, Sodium Level 134, Potassium Level 3.4, Chloride Level 100, Carbon Dioxide Level 21, Anion Gap 13, Blood Urea Nitrogen 11, Creatinine 1.02, Estimat Glomerular Filtration Rate 78, BUN/Creatinine Ratio 11, Glucose Level 131, Calcium Level 8.7, Corrected Calcium 9.3, Total Bilirubin 1.1, Aspartate Amino Transf (AST/SGOT) 14, Alanine Aminotransferase (ALT/SGPT) 18, Alkaline Phosphatase 96, Total Protein 6.1, Albumin 3.2, Triglycerides Level 100, Cholesterol Level 118, LDL Cholesterol Direct 62, VLDL Cholesterol 20, HDL Cholesterol 35 01/10/22 11:08: Glucometer 129 01/10/22 15:10: Urine Color YELLOW, Urine Clarity CLOUDY, Urine pH 5.5, Urine Specific Lewis 1.015, Urine Protein 2+, Urine Glucose (UA) 3+, Urine Ketones TRACE, Urine Nitrite NEGATIVE, Urine Bilirubin 1+, Urine Urobilinogen 1.0, Urine Leukocyte Esterase 2+, Urine RBC (Auto) 3+, Urine RBC 10-25, Urine WBC 25-50, Urine C rystals NONE, Urine Bacteria FEW, Urine Casts NONE, Urine Mucus NEGATIVE, Urine Yeast LARGE, Urine Culture Indicated YES 01/10/22 15:16: Glucometer 131 01/10/22 20:13: Glucometer 130 01/11/22 06:53: Glucometer 120 01/11/22 10:53: Glucometer 116 01/11/22 15:38: Glucometer 134 01/11/22 20:14: Glucometer 134 01/12/22 05:08: Sodium Level 132, Potassium Level 3.6, Chloride Level 97, Carbon Dioxide Level 17, Anion Gap 18, Blood Urea Nitrogen 18, Creatinine 1.17, Estimat Glomerular Filtration Rate 66, BUN/Creatinine Ratio 15, Glucose Level 120, Calcium Level 8.7 01/12/22 05:33: Glucometer 121 01/15/22 07:13: Sodium Level 126, Potassium Level 4.3, Chloride Level 90, Carbon Dioxide Level 21, Anion Gap 15, Blood Urea Nitrogen 20, Creatinine 1.36, Estimat Glomerular Filtration Rate 55, BUN/Creatinine Ratio 15, Glucose Level 123, Calcium Level 9.3, White Blood Count 6.9, Red Blood Count 4.39, Hemoglobin 12.1, Hematocrit 37, Mean Corpuscular Volume 85, Mean Corpuscular Hemoglobin 28, Mean Corpuscular Hemoglobin Concent 32, Red Cell Distribution Width 17.7, Platelet Count 300, Mean Platelet Volume 10.7, Immature Granulocyte % (Auto) 1, Neutrophils (%) (Auto) 62, Lymphocytes (%) (Auto) 28, Monocytes (%) (Auto) 7, Eosinophils (%) (Auto) 2, Basophils (%) (Auto) 1, Neutrophils # (Auto) 4.3, Lymphocytes # (Auto) 1.9, Monocytes # (Auto) 0.5, Eosinophils # (Auto) 0.1, Basophils # (Auto) 0.1, Immature Granulocyte # (Auto) 0.0, Corrected Calcium 9.8, Total Bilirubin 1.1, Aspartate Amino Transf (AST/SGOT) 17, Alanine Aminotransferase (ALT/SGPT) 15, Alkaline Phosphatase 101, Total Protein 6.3, Albumin 3.4 01/16/22 05:00: Sodium Level 123, Potassium Level 4.6, Chloride Level 90, Carbon Dioxide Level 19, Anion Gap 14, Blood Urea Nitrogen 21, Creatinine 1.47, Estimat Glomerular Filtration Rate 50, BUN/Creatinine Ratio 14, Glucose Level 114, Calcium Level 9.2 01/17/22 05:06: Sodium Level 122, Potassium Level 4.6, Chloride Level 89, Carbon Dioxide Level 19, Anion Gap 14, Blood Urea Nitrogen 21, Creatinine 1.37, Estimat Glomerular Filtration Rate 55, BUN/Creatinine Ratio 15, Glucose Level 102, Calcium Level 8.8 01/18/22 05:15: Sodium Level 123, Potassium Level 4.7, Chloride Level 89, Carbon Dioxide Level 21, Anion Gap 13, Blood Urea Nitrogen 22, Creatinine 1.57, Estimat Glomerular Filtration Rate 47, BUN/Creatinine Ratio 14, Glucose Level 125, Calcium Level 9.0 01/19/22 05:23: Sodium Level 123, Potassium Level 4.9, Chloride Level 88, Carbon Dioxide Level 22, Anion Gap 13, Blood Urea Nitrogen 22, Creatinine 1.62, Estimat Glomerular Filtration Rate 45, BUN/Creatinine Ratio 14, Glucose Level 130, Calcium Level 9.3, White Blood Count 5.2, Red Blood Count 4.34, Hemoglobin 12.1, Hematocrit 37, Mean Corpuscular Volume 86, Mean Corpuscular Hemoglobin 28, Mean Corpuscular Hemoglobin Concent 32, Red Cell Distribution Width 18.7, Platelet Count 309, Mean Platelet Volume 10.9, Immature Granulocyte % (Auto) 0, Neutrophils (%) (Auto) 58, Lymphocytes (%) (Auto) 30, Monocytes (%) (Auto) 9, Eosinophils (%) (Auto) 2, Basophils (%) (Auto) 1, Neutrophils # (Auto) 3.0, Lymphocytes # (Auto) 1.6, Monocytes # (Auto) 0.5, Eosinophils # (Auto) 0.1, Basophils # (Auto) 0.1, Immature Granulocyte # (Auto) 0.0, Corrected Calcium 9.9, Total Bilirubin 0.9, Aspartate Amino Transf (AST/SGOT) 19, Alanine Aminotransferase (ALT/SGPT) 18, Alkaline Phosphatase 98, Total Protein 6.0, Albumin 3.3 01/20/22 05:17: Sodium Level 123, Potassium Level 5.3, Chloride Level 88, Carbon Dioxide Level 22, Anion Gap 13, Blood Urea Nitrogen 25, Creatinine 2.05, Estimat Glomerular F iltration Rate 34, BUN/Creatinine Ratio 12, Glucose Level 124, Calcium Level 9.3 Discharge Home Medications: Active Scripts Active Lotrimin AF (Miconazole Nitrate) 2 % Powder 0 Gm TOP BID Levothyroxine Sodium 25 Mcg Tablet 25 Mcg PO DAILY@0630 Jardiance (Empagliflozin) 10 Mg Tablet 10 Mg PO DAILY Furosemide 40 Mg Tablet 40 Mg PO DAILY Tramadol HCl 50 Mg Tablet 100 Mg PO Q6H PRN Aspirin EC (Aspirin) 81 Mg Tablet.dr 81 Mg PO DAILY Inspra (Epleronone) 25 Mg Tablet 25 Mg PO 1200 Entresto 24 mg-26 mg Tablet (Sacubitril/Valsartan) 24 Mg-26 Mg Tablet 0.5 Tab PO BID Metoprolol Succinate 25 Mg Tab.er.24h 12.5 Mg PO 0800 Amiodarone HCl 200 Mg Tablet 100 Mg PO DAILY Eliquis (Apixaban) 5 Mg Tablet 5 Mg PO BID Flomax (Tamsulosin HCl) 0.4 Mg Cap 0.4 Mg PO DAILY Cyclobenzaprine HCl 10 Mg Tablet 10 Mg PO BID Simvastatin 80 Mg Tablet 40 Mg PO HS Methocarbamol 500 Mg Tablet 500 Mg PO BID Reported Senna-S Tablet (Sennosides/Docusate Sodium) 8.6 Mg-50 Mg Tablet 2 Each PO HS Centrum Silver Men Tablet (Multivit-Min/FA/Lycopen/Lutein) 300 Mcg-600 Mcg-300 Mcg Tablet 1 Each PO HS Vitamin B-12 (Cyanocobalamin (Vitamin B-12)) 2,500 Mcg Tab.subl 2,500 Mcg SL DAILY Cranberry Concentrate Softgel (Cranberry Conc/Ascorbic Acid) 140 Mg-100 Mg Capsule 2 Each PO DAILY Vitamin C (Ascorbic Acid) 500 Mg Tablet 500 Mg PO DAILY Instructions to patient/family Please see electronic discharge instructions given to patient. Diagnosis/Problems Diagnosis/Problems (1) Chronic HFrEF (heart failure with reduced ejection fraction) (2) Nonischemic cardiomyopathy (3) Persistent atrial fibrillation (4) Primary hypertension (5) Mixed hyperlipidemia (6) Pulmonary hypertension (7) Type 2 diabetes mellitus with complication GUERRERO COLE DO January 20, 2022 10:42
[2022-01-20 11:40] VITALS: BP 90/57
--- NOTE | 2022-01-20 14:48 | Therapy Team Discharge Summary ---
Therapy Discharge Summary Discharge Recommendations Date of Discharge Therapy D/C Recommendations: Occupational Therapy Home Care Physical Therapy Patient came to rehab with acute decompensated heart failure. Upon evaluation patient performed rolling with min assist, supine to sit min assist, sit to supine CGA, sit <-> stand and transfers max assist, car transfer max assist, ambulated 15' with a quad cane with min assist. Patient has been performing bed mobility and transfer training, balance and endurance training, functional strengthening, stair training, gait training, and education. Patient has made fair progress and has met all of his correction goals. Now, patient performs rolling and supine <-> sit with setup, sit <-> stand and transfers with setup, car transfer setup, ambulates 150' with a rolling walker with setup (including 50' with at least 2 turns of 90 degrees and 10' over an uneven surface), can go up and down 4 steps using 2 handrails with SBA, and can seed cone picker an object from the floor with setup using a aluminum can collector. Patient is being discharged from this facility today and will be discharged from PT at this time. Roll Left to Right (QC): 5 Sit to Lying (QC): 5 Lying to Sitting/Side of Bed(Q: 5 Sit to Stand (QC): 5 Chair/[id number]-Qvgto Xfer(QC): 5 Toilet Transfer (QC): 4 Car Transfer (QC): 5 Does the Patient Walk: Yes Mode of Locomotion: Walk Anticipated Mode of Locomotion: Walk Walk 10 feet (QC): 5 Walk 50 ft with 2 Turns(QC): 5 Walk 150 ft (QC): 5 Walking 10ft on uneven surface: 5 Distance: 15' Gait Assistive Device: FWW Does the Pt Use a Wheelchair: No Wheel 50 ft with 2 turns (QC): 1 Wheel 150 ft (QC): 1 Type of Wheelchair: N/A #of Steps: 4 1 Step (curb) (QC): 5 4 Steps (QC): 5 12 Steps (QC): 7 Balance Sitting Static: Good Balance Sitting Dynamic: Fair Balance-Standing Static: Poor Picking up an Object (QC): 5 Occupational Therapy Decreased Activ Tolerance, Decreased UE Strength, Impaired Funct Balance, Impaired I ADL's, Impaired Self-Care Skills, Restricted Funct UE ROM Eating (QC): 6 Oral Hygiene (QC): 6 Shower/Bathe Self (QC): 5 (set up at NC) Upper Body Dressing (QC): 5 (set up ) Lower Body Dressing (QC): 3 (Min A with threading LEs into pants, CGA in stand. ) On/Off Footwear (QC): 2 (Pt able to doff gripper socks, assist to don gripper socks and compression socks.) Toileting Hygiene (QC): 4 (CGA in stand.) PT Director Of Market Intelligence Goals Residential Goals PT Director Of Market Intelligence Goals Time Frame: January 30, 2022 Roll Left to Right (QC): 6 Sit to Lying (QC): 4 (SBA) Lying-Sitting on Side/Bed(QC): 4 (SBA) Sit to Stand (QC): 4 (CGA) Chair/[id number]-[id number] Xfer(QC): 4 (CGA) Car Transfer (QC): 4 (CGA) Does the Patient Walk: Yes Walk 10 feet (QC): 4 (SBA) Walk 10ft-Uneven Surface(QC): 4 (CGA) Walk 50ft with 2 Turns (QC): 4 (CGA) Walk 150 ft (QC): 4 (CGA) Does the Pt use WC or Scooter?: No Wheel 50 feet with 2 turns (QC: 9 1 Step (curb) (QC): 4 (CGA) 4 Steps (QC): 88 12 Steps (QC): 88 Picking up an Object (QC): 4 (CGA with aluminum can collector) OT Director Of Market Intelligence Goals Director Of Market Intelligence Goals Time Frame: January 24, 2022 Eating (QC): 6 (met) Oral Hygiene (QC): 6 (met) Shower/Bathe Self (QC): 5 (met) Upper Body Dressing (QC): 6 (not met) Lower Body Dressing (QC): 5 (not met.) On/Off Footwear (QC): 5 (not met.) Toileting Hygiene (QC): 6 (not met) Toilet/Commode Transfer (QC): 4 (CGA) Additional Goals: 1-Demonstrate ADL Tasks, 2-Verbalize Understanding, 3- ImproveStrength/Saul 1=Demonstrate adherence to instructed precautions during ADL tasks. 2=Patient will verbalize/demonstrate understanding of assistive devices/modifications for ADL. 3=Patient will improve strength/tolerance for activity to enable patient to perform ADL's. KRTEK,SOLO PT January 20, 2022 14:48
== END 2022-01-20 11:40 | disposition home health service (06) | DRG 92 ==
PROVIDERS: ADMIT Internal Medicine; ATTEND Internal Medicine
DX: G72.89 Other specified myopathies (principal); I48.19 Other persistent atrial fibrillation; E87.1 Hypo-osmolality and hyponatremia; B37.49 Other urogenital candidiasis; J90 Pleural effusion, not elsewhere classified; I50.22 Chronic systolic (congestive) heart failure; I42.8 Other cardiomyopathies; I11.0 Hypertensive heart disease with heart failure; R09.02 Hypoxemia; N40.0 Benign prostatic hyperplasia without lower urinary tract symptoms; E03.9 Hypothyroidism, unspecified; E78.2 Mixed hyperlipidemia; I27.20 Pulmonary hypertension, unspecified; G47.00 Insomnia, unspecified; M19.90 Unspecified osteoarthritis, unspecified site; R74.8 Abnormal levels of other serum enzymes; I95.2 Hypotension due to drugs; T46.5X5A Adverse effect of other antihypertensive drugs, initial encounter; E11.621 Type 2 diabetes mellitus with foot ulcer; L97.529 Non-pressure chronic ulcer of other part of left foot with unspecified severity; R33.9 Retention of urine, unspecified; I08.3 Combined rheumatic disorders of mitral, aortic and tricuspid valves; B35.3 Tinea pedis; E66.9 Obesity, unspecified; Z85.46 Personal history of malignant neoplasm of prostate; Z86.16 Personal history of COVID-19; Z79.82 Long term (current) use of aspirin; Z79.899 Other long term (current) drug therapy; Z79.01 Long term (current) use of anticoagulants; Z79.890 Hormone replacement therapy; Z87.891 Personal history of nicotine dependence; Z95.810 Presence of automatic (implantable) cardiac defibrillator; Z68.29 Body mass index [BMI] 29.0-29.9, adult; Z79.84 Long term (current) use of oral hypoglycemic drugs
CPT/HCPCS: 36415; 71046; 80048; 80053; 80061; 81000; 82947; 85025; 87088; 93005; 93306; 94664